=== PATIENT | female | born 1955 | race Caucasian/White ===

== ENCOUNTER 2023-11-13 21:07 | Inpatient (IN) | payer OTHER, SELFPAY ==
[2023-11-13] VITALS (23 sets, daily range): BP systolic 90–152; BP diastolic 27–70; BMI 18.0
--- NOTE | 2023-11-13 17:35 | ED.GENMED ---
History of Present Illness
General
Chief Complaint: Chest Pain
Time Seen by Provider: 11/13/23 17:30
History of Present Illness
History of Present Illness:
HPI: The patient was discharged here yesterday with GI bleeding after being here with hemoglobin of 5.9 initially on 11/10/2023. 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 It appears the patient
was offered but declined an EGD. It appears that the Coumadin was held on the . Today, the patient comes in because of a syncopal event associated with chest discomfort. EMS was called and found her to be hypotensive with blood pressures of
70s over 30s. However only after 400 mL of fluid her repeat blood pressures are in the 160s systolic. They also had concern for change in her EKG with some questionable ST elevation. The patient does have some ongoing vague chest discomfort as
well. She states she did have melena last night after taking something for being constipated.
EXAM:
GENERAL: The patient appears in mild distress
HEENT: Moist oral mucosa
CARDIOVASCULAR: No murmurs, tachycardic heart rate with regular rhythm, No chest wall tenderness
PULMONARY: No respiratory distress, breath sounds are clear and equal
ABDOMEN: Soft with no peritoneal signs, no tenderness
NEUROLOGIC: Excellent strength all extremities, no coordination deficits
PSYCHIATRIC: Appropriate mental status, normal insight and judgement
EXTREMITIES: Nontender, no edema, moves all extremities equally
SKIN: Appears somewhat pale
ED COURSE:
5:30 PM: I initially evaluated patient
NUMBER AND COMPLEXITY OF PROBLEMS ADDRESSED AT THE ENCOUNTER
� Chronic conditions affecting care: Recent GI bleed on Coumadin status post PRBCs
� Acute Exacerbation and/or Progression of Chronic Illness: Mechanical aortic valve, recent GI bleed, prior CVA, labile hypertension
� Differential Diagnosis includes: Recurrence of GI bleed, severe anemia, ACS, dysrhythmia, dehydration/hypotension, [place]
AMOUNT AND/OR COMPLEXITY OF DATA TO BE REVIEWED AND ANALYZED
� I performed an independent evaluation of and my interpretation is:
EKG: Sinus 106, there is lateral ST abnormality which may be related to LVH however this appears changed in comparison to 11/10/2023
CT:
X-rays:
Laboratory Studies: Hemoglobin 5.0, INR 5.5, white count 13.7, troponin negative
Other:
� Review of other/old records: I reviewed the recent hospitalization/discharge summary which the patient was seen by GI and cardiology. Patient had refused endoscopy.
� Clinical information was obtained by an independent historian: I spoke to EMS
� Prescriptions/Medications Considered but not given:
� Further testing considered but not performed:
RISK OF COMPLICATIONS AND/OR MORBIDITY OR MORTALITY OF PATIENT MANAGEMENT
� Social determinants of health affecting care: Lives at home
� Discussion with other providers: Cardiology, GI, hospitalist for admission
� Escalation of care including admission/observation vs risk of discharge considered: Patient's hemoglobin is only 5.0. I have emergently ordered 3 units of blood. INR is 5.5 however the patient has mechanical aortic valve
therefore we will just hold Coumadin for now. I discussed with Dr. Rosales as patient did have an abnormal EKG initially. Troponin is negative. I also notified GI. On reassessment at 6:40 PM, the patient's chest discomfort has improved after
administration of morphine. Of note, EMS did give aspirin prior to arrival.
Past History
Past History
ED Past Medical History: Cancer (Hodgkin's lymphoma, breast), CVA, GERD, HTN, Valvular disease and Hypothyroidism
ED Past Surgical History: Cardiac (Mechanical aortic valve replacement), , Orthopedic and Other (Thyroidectomy, splenectomy, mastectomy)
Patient has exhibited threatening behavior?: No
PSI?: No
Social History
Tobacco: Non-smoker
Alcohol: None
Drug: None
Personal:
Living: with family
Employment: Employed
Family History
Family History: Other (Noncontributory)
Phy Exam
Physical Exam
Physical Exam:
See HPI
Scores
Heart Score for Chest Pain Patients
STEMI patient?: Not applicable
Course
Orders/Labs/Results
Orders:
Orders
11/13/23 17:30
Electrocardiogram (*1) Urgent
Reason for Study: Chest Pain
EKG- Treatment ONCE
11/13/23 17:36
Type+Screen Urgent
Complete Blood Count/With Diff Urgent
Comprehensive Metabolic Panel Urgent
Magnesium Urgent
NT-proBNP Urgent
Troponin I Urgent
11/13/23 17:56
* Blood Bank Products Urgent
Blood Bank Products: *Packed RBC Leuko(PRBC's)
Quantity: 3
Transfuse Today: Yes
Reason: Anemia
11/13/23 17:57
Prothrombin Time Urgent
11/13/23 17:58
Morphine Sulfate 2 mg IV NOW STA
Pantoprazole [Protonix IV] 80 mg IV NOW STA
Abnormal Lab Results
11/13/23 11/13/23
17:36 17:57
WBC 13.7 H 10^3/uL
(4.8-10.8)
RBC 1.67 L 10^6/uL
(4.20-5.40)
Hgb 5.0 L* D g/dL
(12.0-16.0)
Hct 15.5 L* %
(37.0-47.0)
MCHC 32.3 L g/dL
(33.0-37.0)
RDW 17.5 H %
(11.5-14.5)
Abs Immat Gran (auto) 0.1 H 10^3/uL
(0-0.05)
Absolute Neuts (auto) 10.3 H 10^3/uL
(1.4-6.5)
Absolute Monos (auto) 1.3 H 10^3/uL
(0.1-0.6)
Immature Gran % 0.7 H %
(0-0.5)
Neutrophils % 75.3 H %
(42.2-75.2)
Lymphocytes % 12.5 L %
(20.5-51.1)
Monocytes % 9.6 H %
(1.7-9.3)
PT 51.0 H Sec
(11.4-14.6)
INR 5.54 H* D
BUN 67 H mg/dl
(7-17)
Glucose 129 H mg/dl
(70-99)
Calcium 8.1 L mg/dl
(8.4-10.2)
Magnesium 2.6 H mg/dl
(1.6-2.3)
Total Protein 4.8 L g/dl
(6.3-8.2)
Albumin 2.7 L g/dl
(3.5-5.0)
Crossmatch IS Only See Detail
11/13/23 17:36
11/13/23 17:36
Vital Signs
Initial and Last Documented VS:
Initial Vital Signs
Temp Pulse Resp BP Pulse Ox
98.2 F 107 20 141/49 100
11/13/23 17:30 11/13/23 17:30 11/13/23 17:30 11/13/23 17:30 11/13/23 17:30
Last Documented Vital Signs
Temp Pulse Resp BP Pulse Ox
98.2 F 100 12 119/44 100
11/13/23 17:30 11/13/23 18:45 11/13/23 18:45 11/13/23 18:31 11/13/23 18:45
*Pulse Oximetry
Patient hypoxic: no
*Critical Care Note
Total Time (30-74mins, 75-104mins- exclusive of procedures): 60 minutes
comment:
The patient arrived normotensive however had significant drop in hemoglobin. I discussed case emergently with both cardiology and GI. Will emergently give blood.
ED Attending Note
-
Portions of this chart may have been created with voice recognition software.� Occasional wrong word or��sound alike� substitutions may have occurred due to the inherent limitations of voice recognition software.
Discharge Plan
Departure
Patient Disposition: Admit
Date of Disposition: 11/13/23
Time of Disposition: 19:05
Presentation/result/management discussed w/ accepting MD/DO: Hospitalist
Discharge Problem:
Severe anemia
Prescriptions:
No Action
levothyroxine 88 MCG tablet
88 mcg PO DAILY AT 0700
Patient Comments:
10/27/2023: MUST BE BRAND NAME SYNTHROID Pt advised to have family/spouse bring in her Synthroid from home.
fulvestrant 250 MG/5 ML syringe
500 mg IM MONTHLY
Hold Instructions: Resume on 11/18/23. till seen by oncology
omeprazole 10 mg Capsule,Delayed Release(Dr/Ec)
10 mg PO DAILY
Patient Comments:
10/27/2023: MUST BE BRAND NAME PRILOSEC OTC
metoprolol succinate 25 mg tablet extended release 24 hr
37.5 mg PO QPM
lisinopril 10 mg tablet
10 mg PO QPM
warfarin 2.5 mg Tablet
2.5 mg PO SUMOTUWETHFR@1800
lorazepam 0.5 mg tablet
0.5 mg PO HSPRN PRN (Reason: ANXIETY/ sleep)
celecoxib 100 mg capsule
100 mg PO BIDPRN PRN (Reason: PAIN)
Hold Instructions: Resume on 11/25/23.
Referrals:
Melanie Haynes MD [Family Provider] -
Interventions
Interventions:
*Risk Screen - Suicide Last Done: 11/13/23 17:30
*General Assessment Last Done: 11/13/23 18:49
*Neglect/Abuse Screening Last Done: 11/13/23 17:30
*ED COVID-19 Vaccine History Last Done: 11/13/23 18:48
ED- Cardiac Assessment Last Done: 11/13/23 18:49
[2023-11-13 17:44] LABS: % Basophils 0.5 % (0-2); % Eosinophils 1.4 % (0-6); % Immature Granulocytes 0.7 % (0-0.5); % Lymphocytes 12.5 % (20.5-51.1); % Monocytes 9.6 % (1.7-9.3); % Neutrophils 75.3 % (42.2-75.2); Absolute Basophils 0.1 10^3/uL (0-0.2); Absolute Eosinophils 0.2 10^3/uL (0-0.7); Absolute Immature Granulocytes 0.1 10^3/uL (0-0.05); Absolute Lymphocytes 1.7 10^3/uL (1.2-3.4); Absolute Monocytes 1.3 10^3/uL (0.1-0.6); Absolute Neutrophils 10.3 10^3/uL (1.4-6.5); Mean Corp Hgb Conc. 32.3 g/dL (33.0-37.0); Mean Corpuscular Hgb 29.9 pg (27.0-31.0); Mean Corpuscular Volume 92.8 fL (81.0-99.0); Mean Platelet Volume 10.4 fL (7.4-10.4); Nucleated Red Blood Cells % 0.3 %; Platelet Count 231 10^3/uL (130-400); Red Blood Cell Count 1.67 10^6/uL (4.20-5.40); Red Cell Dist. Width 17.5 % (11.5-14.5); White Blood Cell Count 13.7 10^3/uL (4.8-10.8)
[2023-11-13 17:53] LABS: Hematocrit 15.5 % (37.0-47.0)
[2023-11-13 17:55] LABS: ALT (SGPT) 13 U/L (0-35); AST (SGOT) 25 U/L (14-36); Albumin 2.7 g/dl (3.5-5.0); Alkaline Phosphatase 61 U/L (38-126); Blood Urea Nitrogen 67 mg/dl (7-17); Calcium 8.1 mg/dl (8.4-10.2); Carbon Dioxide 23 mmol/L (22-30); Chloride 107 mmol/L (98-107); Estimated Creatinine Clearance 36 ml/min; Glucose 129 mg/dl (70-99); Magnesium 2.6 mg/dl (1.6-2.3); Potassium 4.2 mmol/L (3.5-5.1); Sodium 135 mmol/L (135-145); Total Bilirubin 0.4 mg/dl (0.2-1.3); Total Protein 4.8 g/dl (6.3-8.2); eGFR > 60.00
[2023-11-13 18:06] LABS: NT-proBNP 1020 pg/ml; Troponin I < 0.012 ng/ml
[2023-11-13 18:20] LABS: INR 5.54
[2023-11-13] MEDS: MORPHINE SULFATE 2 MG IV (18:29)
[2023-11-13] MEDS: PROTONIX IV 80 MG IV (18:31)
--- NOTE | 2023-11-13 20:03 | HPS.HSE ---
Family Physician
-
Family Physician: Melanie Haynes MD
Chief Complaint
-
Syncope, SOB, Chest Pain
History of Present Illness
Patient is a 68y F with PMH significant for breast cancer on chemotherapy, mechanical AVR on Coumadin and recent hospitalization for GI Bleed who presents to ED complaining of SOB, chest pain and syncope. Patient was admitted 11/10 - 11/11 with GI
bleeding of suspected upper source. Her Coumadin was briefly held and she was transfused for Hgb = 5.9. Her discharge hemoglobin was 9.3 and her INR was 3.33. Patient was evaluated by GI during that hospital stay and EGD was recommended to assess
source of the bleeding. Patient was concerned with any interruption of her anticoagulation (has prior h/o stroke following colonoscopy) and declined the procedure.
After discharge, she noted some constipation. She had no BM until she took 1/2 dose of Mag citrate yesterday afternoon. She had a very large, very black and tarry BM following this.
After the BM, patient developed recurrent chest heaviness and SOB.
This AM she woke to use the bathroom and lost consciousness. EMS was called and patient was brought to the ED for further evaluation and treatment.
EKG done en route and here in the ED shows significant ST changes compared to tracings from only a few days ago.
In the ED at the time of my examination, patient is resting comfortably and has no current chest pain and no dyspnea at rest.
Medical History
Past Medical History
Past Medical History: Reports Other
Additional Past Medical History:
Hodgkin's Lymphoma (1970s) - XRT
Hypothyroidism
Breast Cancer
Hypertension
Aortic Stenosis (secondary to XRT)
CVA - presumed embolic - 2021
Past Surgical History: Reports Other
Additional Past Surgical History:
Mechanical AVR (pediatric valve) - 2006
Splenectomy
Mastectomy
Thyroidectomy
Social History
Tobacco: Non-smoker
Alcohol: None
Drug: None
Family History
Family History: Not pertinent
Allergies / Home Medications
Allergies reflects when Allergies were last updated in [employer]
Home Medications with original date entered in [employer]
Allergy/Medication List:
Allergies
Allergy/AdvReac Type Severity Reaction Status Date / Time
palbociclib [From [facility]] Allergy Tongue Verified 11/13/23 17:37
Swelling
Penicillins Allergy throat Verified 11/13/23 17:37
swelling-
tolertates
amoxicillin
tramadol Allergy throat Verified 11/13/23 17:37
swelling
Home Medications
fulvestrant 250 mg/5 mL intramuscular syringe 500 mg IM MONTHLY Cancer 07/16/21
levothyroxine 88 mcg tablet 88 mcg PO DAILY AT 0700 Thyroid 07/16/21
omeprazole 10 mg capsule,delayed release 20 mg PO DAILY Gastrointestinal issue 08/25/22
metoprolol succinate 25 mg tablet,extended release 24 hr 37.5 mg PO QPM Blood Pressure 10/27/23
lisinopril 10 mg tablet 10 mg PO QPM Blood Pressure 10/28/23
celecoxib 100 mg capsule 100 mg PO BIDPRN PRN nerve PAIN 11/10/23
lorazepam 0.5 mg tablet 0.5 mg PO HSPRN PRN ANXIETY/ sleep 11/10/23
warfarin 2.5 mg tablet 2.5 mg PO QPM 11/10/23
bisacodyl 10 mg rectal suppository (Dulcolax (bisacodyl)) 10 mg ME DAILYPRN PRN constipation 11/13/23
magnesium citrate 150 ml PO BIDPRN PRN constipation 11/13/23
Review of Systems
-
History Source: Patient
A 12 point ROS was completed and negative except as noted: Yes
Constitutional: Reports Fatigue; Denies Fever or Chills
EENT: Denies Sore Throat
Respiratory: Reports Trouble Breathing; Denies Cough
Cardiac: Reports Chest Pain, Diaphoresis and Syncope; Denies Palpitations
Abdomen/GI: Reports Constipated and Black Stools; Denies Abdominal Pain, Nausea or Vomiting
: Denies Dysuria or Frequency
Neurological: Denies Headache
Psych: Denies Depression or Anxiety
Physical Exam
Vital Signs
Vital Signs
Temp Pulse Resp BP Pulse Ox
98.2 F 100 12 119/44 100
11/13/23 17:30 11/13/23 18:45 11/13/23 18:45 11/13/23 18:31 11/13/23 18:45
Physical Exam
General: Other (Thin, frail-appearing 68y F in no acute distress.)
HEENT: Moist mucous membranes and PERRLA
Respiratory: Clear; No Wheezes, Rales or Rhonchi
Cardiac: S1/S2 (Mechanical S2), Regular Rhythm and Murmur (II/ AMMY)
GI: Soft, Non Tender, Non Distended and Normal Bowel Sounds
Musculoskeletal: No Clubbing, No Cyanosis and No Edema
Neuro: AO x 3
Laboratory Results
-
11/13/23 17:36
11/13/23 17:36
Laboratory Results
PT 51.0 Sec (11.4-14.6) H 11/13/23 17:57
INR 5.54 H* D 11/13/23 17:57
Total Bilirubin 0.4 mg/dl (0.2-1.3) 11/13/23 17:36
AST 25 U/L (14-36) 11/13/23 17:36
ALT 13 U/L (0-35) 11/13/23 17:36
Alkaline Phosphatase 61 U/L (38-126) 11/13/23 17:36
Troponin I < 0.012 ng/ml 11/13/23 17:36
Impression/Plan
-
A/P: Patient is a 68y F with PMH significant for mechanical AVR, chronic anticoagulation and breast cancer on fulvestrant who presents to ED complaining of chest pain, SOB and syncope this AM.
Upper GI Bleed
Symptomatic Blood Loss Anemia secondary to the above
- Admit for further evaluation and treatment.
- Continued melena and repeat significant anemia (Hgb 9.3 to 5.0 since discharge).
- PRBCs ordered in the ED.
- Follow H&H for any changes.
- Hold Coumadin - but will not actively reverse for now - unless further / brisk bleeding is appreciated.
- GI evaluation - patient notes that she is amenable to EGD now given recurrent blood loss.
- IV PPI BID for now.
Chest Pain
SOB
Syncope
- Likely secondary to blood loss anemia as noted above.
- EKG on this admission markedly different from prior with ST changes in the inferior / lateral leads.
- Troponin remains undetectable.
- Follow for any changes in troponin, recurrent chest pain, EKG changes, etc.
- Cardiology evaluation.
- Continue metoprolol. Hold other medications, including ASA, given active bleeding.
- Replace PRBCs as noted above and follow for clinical improvement.
Mechanical AVR
Chronic Coumadin Coagulopathy
- Hold Coumadin for now as noted above.
- Initial INR today is 5.54 - increased from 3.33 at discharge.
- Last dose of Coumadin was 11/12 evening - 2.5mg.
- Follow INR daily.
- Begin IV heparin for bridging once INR < 3.
- Restart heparin immediately following EGD if possible.
- Cardiology input re: anticoagulation is appreciated.
Benign Hypertension
- BP stable / low at present - likely secondary to blood / volume losses.
- Hold lisinopril acutely.
- Continue metoprolol with holding parameters.
Hypothyroidism
- Stable. Continue T4 replacement.
Breast Cancer
- Maintained on fulvestrant.
- Receives one monthly. Next dose is due Friday.
- Follow-up with Oncology as an outpatient.
DVT Prophylaxis: SCDs
Code Status: DNR
[2023-11-14] VITALS (17 sets, daily range): BP systolic 86–156; BP diastolic 37–72
[2023-11-14] MEDS: NSS 1000 IV ×3 (00:23→20:37)
[2023-11-14 06:48] LABS: Hematocrit 30.2 % (37.0-47.0)
[2023-11-14 06:53] LABS: Hemoglobin 10.2 g/dL (12.0-16.0)
[2023-11-14 06:54] LABS: INR 4.32
[2023-11-14 07:06] LABS: Blood Urea Nitrogen 56 mg/dl (7-17); Calcium 7.9 mg/dl (8.4-10.2); Carbon Dioxide 22 mmol/L (22-30); Chloride 109 mmol/L (98-107); Estimated Creatinine Clearance 41 ml/min; Glucose 99 mg/dl (70-99); Potassium 4.9 mmol/L (3.5-5.1); Sodium 137 mmol/L (135-145); eGFR > 60.00
[2023-11-14] MEDS: PROTONIX IV 40 MG IV (07:52)
[2023-11-14] MEDS: NSS (PRESERVATIVE FREE) 10 ML IV (07:52)
[2023-11-14] MEDS: SYNTHROID 88 MCG PO (08:46)
--- NOTE | 2023-11-14 09:06 | CON.GI ---
Addendum entered and electronically signed by Antonio Lou MD 11/14/23 19:34:
I saw and examined the patient.
The PA's note was reviewed and I agree with the note.
Comment:
68 year old female with h/o valvular heart disease s/p [facility] [place] mechanical AVR on chronic Coumadin, mitral valve stenosis with severe MR, CVA, Hodgkin's lymphoma with history of radiation, history of breast cancer with mastectomy, hypothyroidism,
hypertension, GERD, gastroparesis, who presented to the emergency room with complaints of shortness of breath, chest pain, and syncope.� Hgb found to be 5. Had similar presentation recently but declined endo eval as she did not want to hold
coumadin. Had melena x 2 about 2 days ago, no further BM since. Doubt active bleeding currently. Will need endo eval, but will have to defer until INR is < 2. Will follow.
Original Note:
Consultation
-
Date/Time Consultation Requested: 11/13/23 @ 21:29
Date/Time Consultation Performed: 11/14/23 @ 09:15
Requesting Provider: Dr. Devine
Performing Provider: STEPHANIE Toledo; Dr. Antonio Lou
Reason for Consultation: UGIB on Coumadin
Medical History
Chief Complaint / HPI
Chief Complaint: Syncope, SOB, Chest Pain
History of Present Illness:
The patient is a 68-year-old female with a past medical history significant for valvular heart disease with history of aortic valve replacement on chronic Coumadin, mitral valve stenosis with severe MR, CVA, Hodgkin's lymphoma with history of
radiation, history of breast cancer with mastectomy, hypothyroidism, hypertension, GERD, gastroparesis, who presented to the emergency room with complaints of shortness of breath, chest pain, and syncope. We are being asked to evaluate for
symptomatic anemia and concern for upper GI bleed. Upon review of prior records patient was seen here [facility] last week discharged on 11/11 presenting with similar complaints. She did have melena at that time with a hemoglobin of 5.9 and
was suspected to have bleeding from possible AVM versus peptic ulcer disease with history of significant valvular disease on chronic Coumadin. She was recommended to undergo an EGD but declined due to having had a stroke 2 years ago when she
underwent EGD/colonoscopy after anticoagulation was held. She was transfused with blood with improvement of her hemoglobin up to 9.2, and she was discharged home. She is also on chronic fulvestrant which was advised to be held as this can lead to
anemia. She has been using Celebrex for joint pain but none leading up to her admission. She reports she had felt well the day after her discharge but notes she was constipated. She did take a magnesium supplement and did have a large bowel
movement but noted it was black and tarry. The following morning around 3 AM she reports going to the bathroom and felt significantly dizzy and lightheaded and did have an episode of syncope. She denies any injury although is unsure. She reports
being helped by her and continued about her day although felt progressively unwell throughout the day. She does yesterday afternoon she did have some chest pain around 4 PM therefore prompting emergency room evaluation. She denies any
bright red blood per rectum, but as noted above admits to a black tarry stool last episode on Friday. She denies any nausea or vomiting. She denies any abdominal pain, fevers, or chills. She reports she was taking Prilosec at home which
usually keeps her reflux under control. Her last dose of Coumadin was taken on Friday night and when she took 2.5 mg. Routine labs in the ER showed a hemoglobin of 5.0. She received 3 units of packed red blood cells with improvement of her
hemoglobin to 10.2. Her Coumadin has been held. Noted with EKG abnormalities and chest pain on admission, since improved. She was placed on twice daily PPI admitted for further evaluation by GI and cardiology.
Past Medical History
Past Medical History: Cancer (hodgkin's lymphoma with radiation to neck and pelvis 1973, breast cancer with mastectomy rx with tamoxifen), CVA, GERD, HTN, Hypothyroidism, Valvular Disease (Aortic valve stenosis with AVR, mitral valve stenosis with
severe MR) and Other (Gastroparesis)
Past Surgical History: Cardiac ([facility] aortic valve replacement), and Other (Splenectomy, thyroidectomy, mastectomy)
Social History
Tobacco: Non-Smoker
Alcohol: None
Drug: None
Personal:
Living: With Family
Family History
Family History: Reviewed & Not Pertinent
Allergies / Home Medications
Allergy/AdvReac Type Severity Reaction Status Date / Time
palbociclib [From [facility]] Allergy Tongue Verified 11/13/23 17:37
Swelling
Penicillins Allergy throat Verified 11/13/23 17:37
swelling-
tolertates
amoxicillin
tramadol Allergy throat Verified 11/13/23 17:37
swelling
Medication Instructions Recorded
fulvestrant 250 mg/5 mL 500 mg IM MONTHLY Cancer 07/16/21
intramuscular syringe
levothyroxine 88 mcg tablet 88 mcg PO DAILY AT 0700 Thyroid 07/16/21
omeprazole 10 mg capsule,delayed 20 mg PO DAILY Gastrointestinal 08/25/22
release issue
metoprolol succinate 25 mg 37.5 mg PO QPM Blood Pressure 10/27/23
tablet,extended release 24 hr
lisinopril 10 mg tablet 10 mg PO QPM Blood Pressure 10/28/23
celecoxib 100 mg capsule 100 mg PO BIDPRN PRN nerve PAIN 11/10/23
lorazepam 0.5 mg tablet 0.5 mg PO HSPRN PRN ANXIETY/ sleep 11/10/23
warfarin 2.5 mg tablet 2.5 mg PO QPM 11/10/23
bisacodyl 10 mg rectal suppository 10 mg NM DAILYPRN PRN constipation 11/13/23
(Dulcolax (bisacodyl))
magnesium citrate 150 ml PO BIDPRN PRN constipation 11/13/23
Review of Systems
-
History Source: Patient
Constitutional: Reports Fatigue
EENT: Reports No Symptoms
Respiratory: Reports Trouble Breathing
Cardiac: Reports Chest Pain
Abdomen/GI: Reports Black Stools
: Reports No Symptoms
Musculoskeletal: Reports No Symptoms
Skin: Reports No Symptoms
Neurological: Reports Dizzy and Weakness
Endocrine: Reports No Symptoms
Vital Signs
Temp Pulse Resp BP Pulse Ox
98.1 F 87 15 123/48 98
11/14/23 01:15 11/14/23 06:00 11/14/23 06:00 11/14/23 06:00 11/14/23 06:00
Physical Exam
Exam
General: Well Developed, No Apparent Distress and Other (pale, non-toxic, thin appearing female)
HEENT: Normocephalic, Anicteric and Atraumatic
Respiratory: Clear
Cardiac: S1/S2, Regular Rhythm and Other (click)
Breast: Deferred by me
GI: Soft, Non Tender, Non Distended and Normal Bowel Sounds
Musculoskeletal: No Edema
Skin: Warm and Dry
Neuro: Awake, Alert and Oriented
Psych: Calm
Results
WBC 13.7 10^3/uL (4.8-10.8) H 11/13/23 17:36
Hgb 10.2 g/dL (12.0-16.0) L D 11/14/23 06:24
Hct 30.2 % (37.0-47.0) L 11/14/23 06:24
MCV 92.8 fL (81.0-99.0) 11/13/23 17:36
Plt Count 231 10^3/uL (130-400) D 11/13/23 17:36
Absolute Neuts (auto) 10.3 10^3/uL (1.4-6.5) H 11/13/23 17:36
PT 42.0 Sec (11.4-14.6) H 11/14/23 06:24
INR 4.32 11/14/23 06:24
Sodium 137 mmol/L (135-145) 11/14/23 06:25
Potassium 4.9 mmol/L (3.5-5.1) 11/14/23 06:25
Chloride 109 mmol/L (98-107) H 11/14/23 06:25
Carbon Dioxide 22 mmol/L (22-30) 11/14/23 06:25
BUN 56 mg/dl (7-17) H 11/14/23 06:25
Creatinine 0.8 mg/dL (0.6-1.0) 11/14/23 06:25
Calcium 7.9 mg/dl (8.4-10.2) L 11/14/23 06:25
Total Bilirubin 0.4 mg/dl (0.2-1.3) 11/13/23 17:36
AST 25 U/L (14-36) 11/13/23 17:36
ALT 13 U/L (0-35) 11/13/23 17:36
Alkaline Phosphatase 61 U/L (38-126) 11/13/23 17:36
Prior GI procedures:
EGD:� last 2 years ago [facility] normal per pt
Colonoscopy:� last 2 years [facility] normal per pt
Assessment / Plan
-
The patient is a 68-year-old female with a past medical history significant for valvular heart disease with history of [facility] aortic valve replacement on chronic Coumadin, mitral valve stenosis with severe MR, CVA, Hodgkin's lymphoma with history
of radiation, history of breast cancer with mastectomy, hypothyroidism, hypertension, GERD, gastroparesis, who presented to the emergency room with complaints of shortness of breath, chest pain, and syncope. We are being asked to evaluate for
symptomatic anemia and concern for upper GI bleed. She had recent admission for melena and anemia with a hemoglobin of 5.9. Suspected upper GI bleed with significant valvular disease and history of use of Celebrex (AVMs versus peptic ulcer
disease). She was also on chronic fulvestrant which can cause chronic anemia. She declined EGD at the time of her last hospitalization due to concerns for stroke being off her Coumadin. She now presents again with recurrent symptomatic anemia.
Hemoglobin 5.0 in the emergency room, status post 3 units of packed red blood cells with hemoglobin up to 10.2. INR on admission was 5.54, now down to 4.32 without reversal as there is no brisk bleeding. Also noted with elevated troponin and EKG
abnormalities, pending cardiology evaluation. Currently chest pain free.
Problem list:
-Recurrent symptomatic macrocytic anemia with melena
-Chronic AC on Coumadin for mechanical AVR
-History of intermittent NSAID use
-breast CA with recurrence on chronic Fulvestrant
-chronic constipation
-gastroparesis
-Dysgeusia
-CVA x 2 with last while off anticoagulation for GI procedure
Other pertinent medical history:
-HTN
-hodgkin's lymphoma with distant hx radiation, splenectomy
-mitral stenosis with severe MR
-hypothyroidism, status post thyroidectomy
-GERD
Recommendation:
-Etiology of anemia likely multifactorial secondary to upper GI blood loss (possible AVM with history of valvular disease versus peptic ulcer disease with history of NSAID use) versus fulvestrant use versus other.
---With melena likely upper GI source.
-Continue to trend H&H and transfuse as needed
-Will need eventual EGD once INR is in appropriate range and cleared from cardiology standpoint with elevated troponins/abnormal EKG.
-Monitor INR daily and will likely need heparin bridging, pending cardiology. Will review timing with Dr. Lou
-Monitor for brisk signs of bleeding, if so would consider more urgent EGD v CTA imaging
-PPI drip
-Clear liquid diet (no red liquids)
-Monitor stools
-Avoid all NSAIDs
-Hold Coumadin for now
-We will follow
-
-
Thank you for consultation and allowing me to participate in the patient's care. Please call the risk prevention engineer GI physician during the after hours with any questions or concerns.
[2023-11-14 09:36] LABS: Hematocrit 29.1 % (37.0-47.0); Hemoglobin 9.8 g/dL (12.0-16.0)
[2023-11-14 10:05] LABS: Troponin I 0.141 ng/ml
--- NOTE | 2023-11-14 12:03 | CON.CAR ---
Addendum entered and electronically signed by Donnell Dalal MD 11/14/23 15:55:
I saw and examined the patient.
The ELECTRIC UTILITY LINEWORKER or PA's note was reviewed and I agree with the note.
Comment: General: Well developed, well nourished in NAD.
Neck: Supple, no JVD, HJR, carotids +2 B/L, no bruits bilaterally.
Heart: Non displaced PMI, RRR, 1/6 basal systolic murmur, metallic S2, No S3, S4, no rubs.
Lungs: Clear to auscultation bilaterally, no wheeze, rhonchi, rubs bilaterally,
normal expiratory phase.
Abdomen: Normal bowel sounds, soft, non-tender, non-distended.
Extremities: No clubbing, cyanosis or edema bilaterally.
Neuro: Grossly nonfocal, awake, alert and oriented x3.
Chanda has a history of right MCA stroke with M2 occlusion in the setting of therapeutic INR in June 2022, mechanical AVR pediatric size in 2006 on chronic warfarin, mitral regurgitation and mitral stenosis, TR with pulm hypertension, CVA in
2005, breast cancer status post radiation, hypertension, hypothyroidism. She was admitted with GI bleed October 2023. She declined GI evaluation at that time. She returns with melanotic stool with worsening chest pain and shortness of breath.
She found have a hemoglobin of 5.0. She feels better after transfusion. INR is elevated at 5.54. Cardiology is consulted for evaluation prior to endoscopy and given elevated troponins. No chest pain or shortness of breath at present
Okay for GI procedure without further testing when INR has improved. Will need to start heparin when INR is less than 2.0. Of note she had marked ST-T wave changes which improved after transfusion. Might consider eventual outpatient stress
testing. Will need to monitor INR closely given prior CVA with subtherapeutic INR.
Original Note:
Consultation
Consultation Request
Date/Time Consultation Requested: 11/13/2023 at 2130
Date/Time Consultation Performed: 11/14/2023 at 1045
Requesting Provider: Dr. Devine
Performing Provider: Dr. Dalal
Reason for Consultation: GIB, elevated troponin, EKG changes
Medical History
-
History of Present Illness:
HPI: Chanda is a 68-year-old female with past medical history of recurrent GI bleeding, CVA, AVR, Hodgkin lymphoma, breast cancer, hypertension, and hypothyroidism who presented to ER with symptomatic anemia and GI bleed. She was recently
admitted at 11/10/2023 to 11/11/2023 with same symptoms and was recommended GI evaluation, however she declined. After returning home, she had ongoing dark, black stool and became progressively symptomatic with this with chest pain and shortness
of breath. She returned to ER 11/13/2023 for reevaluation and was found to have hemoglobin of 5.0. Her INR was elevated at 5.54. Her Coumadin was held and she was given 3 units PRBCs. Hemoglobin improved this AM to 10.2. Initial EKG in the
setting of severe anemia had significant ST changes that have improved following transfusion. She also was noted to have elevated troponin with initial troponin negative, trending upwards to 0.130. Cardiology consulted for evaluation. She reports
she is feeling better this morning after receiving the units of blood. She has already been evaluated by GI and is agreeable to workup/EGD this admission. Chest pain and shortness of breath are resolved.
PMH:
Recent admission 11/10/2023 to 11/11/2023 for GIB
GIB w/ transfusion 08/2022 after starting Ribociclib
Right MCA stroke with M2 occlusion in setting of subtherapeutic INR while off Coumadin 07/15/22
patient bridged with Lovenox prior to colonoscopy 07/10/21, but no Lovenox bridge post-colonoscopy
Mechanical AVR pediatric size 2006
Chronic warfarin OAC
Mitral regurgitation with mitral stenosis
Tricuspid regurgitation with pulmonary hypertension
h/o CVA 2005; recurrent right MCA stroke secondary to M2 occlusion in setting of subtherapeutic INR 06/2022
h/o Hodgkin's lymphoma treated with radiation to left neck and pelvis 1973
h/o breast CA 2018 treated with B/L mastectomy, patient refused chemotherapy and radiation, but eventually agreeable to Tamoxifen
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
Recurrence of breast cancer 2021 - did not tolerate Ibrance or Ribociclib
HTN
Hypothyroidism
Past Medical History
Past Medical History: Other (In HPI)
Past Surgical History: Cardiac ([facility] [place] mechanical aortic valve), and Other (Bilateral mastectomy 2017, thyroidectomy, splenectomy)
Social History
Tobacco: Former Smoker
Alcohol: Occasional
Drug: None
Personal:
Living: With Family
Family History
Family History: CAD and Cancer
Allergies / Home Medications
Allergy/AdvReac Type Severity Reaction Status Date / Time
palbociclib [From Ibrance] Allergy Tongue Verified 11/13/23 17:37
Swelling
Penicillins Allergy throat Verified 11/13/23 17:37
swelling-
tolertates
amoxicillin
tramadol Allergy throat Verified 11/13/23 17:37
swelling
Medication Instructions Recorded Confirmed Type
fulvestrant 250 mg/5 mL 500 mg IM MONTHLY Cancer 07/16/21 11/13/23 History
intramuscular syringe
levothyroxine 88 mcg tablet 88 mcg PO DAILY AT 0700 Thyroid 07/16/21 11/13/23 History
omeprazole 10 mg capsule,delayed 20 mg PO DAILY Gastrointestinal 08/25/22 11/13/23 History
release issue
metoprolol succinate 25 mg 37.5 mg PO QPM Blood Pressure 10/27/23 11/13/23 History
tablet,extended release 24 hr
lisinopril 10 mg tablet 10 mg PO QPM Blood Pressure 10/28/23 11/13/23 History
celecoxib 100 mg capsule 100 mg PO BIDPRN PRN nerve PAIN 11/10/23 11/13/23 History
lorazepam 0.5 mg tablet 0.5 mg PO HSPRN PRN ANXIETY/ sleep 11/10/23 11/13/23 History
warfarin 2.5 mg tablet 2.5 mg PO QPM Blood Clot 11/10/23 11/13/23 History
Prevention/Tx
bisacodyl 10 mg rectal suppository 10 mg [place] DAILYPRN PRN constipation 11/13/23 11/13/23 History
(Dulcolax (bisacodyl))
magnesium citrate 150 ml PO BIDPRN PRN constipation 11/13/23 11/13/23 History
Review of Systems
-
History Source: Patient
All other systems: Negative unless noted
Physical Exam
Vital Signs
Temp Pulse Resp BP Pulse Ox
98.1 F 87 15 123/48 98
11/14/23 01:15 11/14/23 06:00 11/14/23 06:00 11/14/23 06:00 11/14/23 06:00
Lab Results
11/14/23 06:25
Troponin I 0.141 ng/ml H* 11/14/23 09:25
Wsv-H-Pdaizmfwbjo Pept 1020 pg/ml 11/13/23 17:36
Physical Exam
General: No Apparent Distress and Other (Thin)
HEENT: Normocephalic, Anicteric and Moist Mucous Membranes
Respiratory: Clear and Non Labored Respirations
Cardiac: S1/S2, Regular Rhythm, Murmur and Other (+ Click of mechanical valve)
Musculoskeletal: No Clubbing, No Cyanosis and No Edema
Skin: Warm and Dry
Neuro: AO x 3 and Nonfocal/Grossly Intact
Psych: Calm
Impression / Plan
-
PCP: Dr. Haynes
Cardiology: Dr. Michelle Justice
Oncology: Dr. Khan at [facility]
Impression:
Presented with chest pain, shortness of breath
Melena
Acute GIB with severe symptomatic anemia
Supratherapeutic INR
Elevated troponin
Recent admission 11/10/2023 to 11/11/2023 for GIB
GIB w/ transfusion 08/2022 after starting Ribociclib
Right MCA stroke with M2 occlusion in setting of subtherapeutic INR while off Coumadin 07/15/22
patient bridged with Lovenox prior to colonoscopy 07/10/21, but no Lovenox bridge post-colonoscopy
Mechanical AVR pediatric size 2006
Chronic warfarin OAC
Mitral regurgitation with mitral stenosis
Tricuspid regurgitation with pulmonary hypertension
h/o CVA 2005; recurrent right MCA stroke secondary to M2 occlusion in setting of subtherapeutic INR 06/2022
h/o Hodgkin's lymphoma treated with radiation to left neck and pelvis 1973
h/o breast CA 2018 treated with B/L mastectomy, patient refused chemotherapy and radiation, but eventually agreeable to Tamoxifen
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
Recurrence of breast cancer 2021 - did not tolerate Ibrance or Ribociclib
HTN
Hypothyroidism
Lexiscan nuclear stress test 11/28/2021:�Positive EKG.� Perfusion imaging with small inferoseptal suggestive of significant bowel artifact vs ischemia
Echo 08/31/19: EF 55-60%, grade II diastolic dysfunction, moderate MR, mechanical aortic valve mean gradient 8 mmHg
Echo 07/16/21:�EF 70-75%, mild to mod MS with mean gradient 10 mmHg, [facility] [place] AVR mean gradient 13, PAP 43 mmHg
Echo 08/26/2022: Hyperdynamic LV.� EF 70 to 75%.� Mild to moderate MS peak/mean gradient 20/7 mmHg.� Moderate to severe MR.� Well-seated mechanical AVR with peak/mean gradient 11/6 mmHg without regurgitation.� Moderate to severe TR.� Moderate
pulmonary hypertension with PAP 50 to 55 mmHg.
Echo 02/10/2023: EF 60 to 65%.� Moderate mitral stenosis mean gradient 11 with severe MR.� Well-seated mechanical AVR with peak/mean gradient 15/8 mmHg, mild to moderate TR, mild pulmonary hypertension with PAP 45 to 48 mmHg.
Plan:
-Presented with severe symptomatic anemia due to GI bleed. Hemoglobin 5.0 with INR 5.5 on arrival.
-Warfarin held. Received 3 units PRBCs overnight. Hemoglobin improved to 10.2 in AM 11/14, on repeat down to 9.8, continue to follow.
-Continue to hold Coumadin. GI evaluating and plan is for eventual EGD once INR is improved. Patient is now agreeable.
-Given history of CVA in the setting of subtherapeutic INR with holding Coumadin in the past, agree with heparin bridge. INR 4.32 11/14/2023
-Chest pain noted with ST changes on EKG in the setting of severe anemia. Following transfusion and improvement in hemoglobin, her symptoms have resolved and EKG changes have improved.
-Elevated troponin noted, trending up to 0.141. Continue to trend to peak. Suspect non-ID troponin elevation in the setting of acute symptomatic anemia.
-Continue Toprol. Blood pressure and heart rate stable. Lisinopril on hold given hypotension initially, may consider resuming as BP allows.
-Fulvestrant remains on hold per GI recommendations.
-Continue IV PPI.
HPI: Chanda is a 68-year-old female with past medical history of recurrent GI bleeding, CVA, AVR, Hodgkin lymphoma, breast cancer, hypertension, and hypothyroidism who presented to ER with symptomatic anemia and GI bleed. She was recently
admitted at 11/10/2023 to 11/11/2023 with same symptoms and was recommended GI evaluation, however she declined. After returning home, she had ongoing dark, black stool and became progressively symptomatic with this with chest pain and shortness
of breath. She returned to ER 11/13/2023 for reevaluation and was found to have hemoglobin of 5.0. Her INR was elevated at 5.54. Her Coumadin was held and she was given 3 units PRBCs. Hemoglobin improved this AM to 10.2. Initial EKG in the
setting of severe anemia had significant ST changes that have improved following transfusion. She also was noted to have elevated troponin with initial troponin negative, trending upwards to 0.130. Cardiology consulted for evaluation. She reports
she is feeling better this morning after receiving the units of blood. She has already been evaluated by GI and is agreeable to workup/EGD this admission. Chest pain and shortness of breath are resolved.
Data Reviewed
-
EKG: Tracing Personally Visualized and interpreted
Labs: Labs Reviewed by me
Old Records: Reviewed
[2023-11-14] MEDS: PROTONIX 250 IV (12:53)
--- NOTE | 2023-11-14 15:10 | W.PN.HOSP.TC ---
Today's Communication/Plan
-
Follow HH and INR
Await EGD/COLO
Assessment / Plan
Assessment / Plan
A/P:� Patient is a 68y F with PMH significant for mechanical AVR, chronic anticoagulation and breast cancer on fulvestrant who presents to ED complaining of chest pain, SOB and syncope this AM.
Upper GI Bleed
Symptomatic Blood Loss Anemia secondary to the above
�- Continued melena and repeat significant anemia (Hgb 9.3 to 5.0 since discharge).
�- PRBCs ordered in the ED. improved H&H posttransfusion
�- Follow H&H for any changes.
�- Hold Coumadin - but will not actively reverse for now - unless further / brisk bleeding is appreciated.
�- GI input appreciated
�- IV PPI BID for now.
Chest Pain
SOB
Syncope
�- Likely secondary to blood loss anemia as noted above.
�- EKG on this admission markedly different from prior with ST changes in the inferior / lateral leads.
�- Troponin remains indeterminate range suspect secondary to non-MT troponin elevation
�- Follow for any changes in troponin, recurrent chest pain, EKG changes, etc.
�- Cardiology evaluation noted and appreciated
�- Continue metoprolol.� Hold other medications, including ASA, given active bleeding.
�- Replace PRBCs as noted above and follow for clinical improvement.
Mechanical AVR
Chronic Coumadin Coagulopathy
�- Hold Coumadin for now as noted above.
�- Initial INR today is 5.54 - increased from 3.33 at discharge.
�- Last dose of Coumadin was 11/12 evening - 2.5mg.
�- Follow INR daily.
�- Begin IV heparin for bridging once INR < 2.5 or less.
�- Restart heparin immediately following EGD if possible.
�- Cardiology input re: anticoagulation is appreciated.
Benign Hypertension
�- BP stable / low at present - likely secondary to blood / volume losses.
�- Hold lisinopril acutely.
�- Continue metoprolol with holding parameters.
Hypothyroidism
�- Stable.� Continue T4 replacement.
Breast Cancer
�- Maintained on fulvestrant.
�- Receives one monthly.� Next dose is due Friday.
�- Follow-up with Oncology as an outpatient.
DVT Prophylaxis:� SCDs
Code Status:� DNR
Anticipated Discharge: > 48 hours
Subjective/Interval History
-
Date of Service: November 14, 2023
Feels okay. No further dizziness.
No shortness of breath or chest pain.
Now agreeable for endoscopy eval.
Objective Data
-
Labs:
Laboratory Results
11/14/23 11/14/23 11/14/23
06:24 06:25 09:25
Hgb 10.2 L D 9.8 L
Hct 30.2 L 29.1 L
PT 42.0 H
INR 4.32
Sodium 137
Potassium 4.9
Chloride 109 H
Carbon Dioxide 22
BUN 56 H
Creatinine 0.8
Glucose 99
Calcium 7.9 L
Vital Signs:
Vital Signs
Temp Pulse Resp BP Pulse Ox
98.1 F 92 17 133/47 100
11/14/23 01:15 11/14/23 12:04 11/14/23 12:04 11/14/23 12:04 11/14/23 07:54
I&O
11/13/23 11/14/23 11/15/23
06:59 06:59 06:59
Intake Total 750 / 750
Balance 750 / 750
Review of Systems
-
Constitutional: Denies Fever
Cardiac: Denies Chest Pain
Abdomen/GI: Denies Abdominal Pain, Nausea or Vomiting
Physical Exam
-
General: No Apparent Distress
HEENT: Moist Mucous Membranes
Respiratory: Clear to Auscultation
Cardiac: Regular Rhythm and S1/S2
GI: Soft
Neuro: AO x 3
Data Reviewed
-
Labs: Labs Reviewed by me
[2023-11-14 16:00] LABS: Hematocrit 26.3 % (37.0-47.0); Hemoglobin 8.9 g/dL (12.0-16.0)
[2023-11-14 16:26] LABS: Troponin I 0.127 ng/ml
--- NOTE | 2023-11-14 19:00 | PTCARENOTE ---
1814 Pt arrived from ER via w/c. Pt alert and oriented. As I attempted to explain to pt new room and review bedside nurse call light, pt became very anxious and upset with noise coming from room mate and T.V. Assisted pt in bed and explain there is
an order to place a portable heart monitor on.
Pt allowed to place heart monitor but then stated ' I need time to settle in, leave me alone for now'. Pt refused vitals, pt at bedside.
Pt denies discomfort, on heart monitor current rhythm normal sinus (sinus tachycardia) heart 90's to low 100's, continue to monitor pt.
1844 Report given to fabrication inspector nurse.
[2023-11-14] MEDS: TOPROL XL 37.5 MG PO (20:33)
[2023-11-14] MEDS: ATIVAN 0.5 MG PO (22:05)
[2023-11-15 03:20] VITALS: BP 118/67
[2023-11-15] MEDS: NSS 1000 IV (03:39)
[2023-11-15] MEDS: ATIVAN 0.5 MG PO ×2 (03:39→23:35)
--- NOTE | 2023-11-15 03:43 | PTCARENOTE ---
Pt very anxious and very upset that roommate will not turn their TV. Pt taken on a walk to help defuse the situation. Pt states that she would like to leave, this nurse and charge nurse explain to the pt that, that would be unsafe d/t the pts quick
drop in hgb and that if the pt were to leave and faint again d/t low hgb she would just end up in the same situation. Charge nurse offered to move pt as soon as a room opens up as there are currently no beds available. Pt called to help her
calm down. Pt requested another dose of her PRN ativan. This nurse promptly asked the EVENT MARKETING SPECIALIST for a 1x dose to help the pt sleep. Pt walked back to bed where medication was promptly given. Pt was also given an eye mask to help with the light from
roommates TV. Will continue to monitor.
[2023-11-15] MEDS: SYNTHROID 88 MCG PO (05:51)
[2023-11-15 06:40] LABS: Hematocrit 26.3 % (37.0-47.0); Hemoglobin 8.8 g/dL (12.0-16.0); Mean Corp Hgb Conc. 33.5 g/dL (33.0-37.0); Mean Corpuscular Hgb 29.6 pg (27.0-31.0); Mean Corpuscular Volume 88.6 fL (81.0-99.0); Mean Platelet Volume 10.2 fL (7.4-10.4); Platelet Count 186 10^3/uL (130-400); Red Blood Cell Count 2.97 10^6/uL (4.20-5.40); Red Cell Dist. Width 16.1 % (11.5-14.5); White Blood Cell Count 15.1 10^3/uL (4.8-10.8)
[2023-11-15 06:50] LABS: INR 4.92; PT 46.5 Sec (11.4-14.6)
[2023-11-15 07:00] VITALS: BP 152/64
--- NOTE | 2023-11-15 08:01 | PTCARENOTE ---
PT AOX3, NOT PLEASANT THIS AM, STATS THAT SHE HAS NOT SLEPT. PT DENIES PAIN, SOB, N/V. INSTRUCTED PT TO USE CALL PITT FOR NEEDS. NPO FOR POSSIBLE PROCEDURE. WILL CONTINUE TO MONITOR
--- NOTE | 2023-11-15 10:47 | VATNOTE ---
Spoke w/ pt's primary RN. New Iv attempted, but unable to thread the catheter. Labs obtained and sent. Pt shaking legs frantically in bed and crying. Attempted to calm pt down but she will not say anything, saying no one is giving her answers.
Relayed information to primary RN.
[2023-11-15 11:00] VITALS: BP 160/70
--- NOTE | 2023-11-15 13:03 | W.PN.GI.CBS2 ---
Today's Communication / Plan
-
change PPI infusion to 40 mg IV BID
Assessment / Plan
-
The patient is a 68-year-old female with a past medical history significant for valvular heart disease with history of [facility] [place] aortic valve replacement on chronic Coumadin, mitral valve stenosis with severe MR, CVA, Hodgkin's lymphoma with history
of radiation, history of breast cancer with mastectomy, hypothyroidism, hypertension, GERD, gastroparesis, who presented to the emergency room with complaints of shortness of breath, chest pain, and syncope. We are being asked to evaluate for
symptomatic anemia and concern for upper GI bleed. She had recent admission for melena and anemia with a hemoglobin of 5.9. Suspected upper GI bleed with significant valvular disease and history of use of Celebrex (AVMs versus peptic ulcer
disease). She was also on chronic fulvestrant which can cause chronic anemia. She declined EGD at the time of her last hospitalization due to concerns for stroke being off her Coumadin. She now presents again with recurrent symptomatic anemia.
Hemoglobin 5.0 in the emergency room, status post 3 units of packed red blood cells with hemoglobin up to 10.2. INR on admission was 5.54, now down to 4.32 without reversal as there is no brisk bleeding. Also noted with elevated troponin and EKG
abnormalities, pending cardiology evaluation. Currently chest pain free.
PT's INR is 4.9 today. Denies further melena. Will hold EGD until INR < 2 (hep gtt bridging). Hgb remains stable. Will change PPI infusion to 40 mg IV BID. Will follow.
Total Time Spent with Patient (in minutes): 35
Subjective
Subjective
Date of Service: November 15, 2023
No events. INR 4.9 today.
Objective
Data Reviewed
Laboratory Data:
Laboratory Results
11/15/23 06:24
Laboratory Results
PT 46.5 Sec (11.4-14.6) H 11/15/23 06:07
INR 4.92 11/15/23 06:07
Magnesium 2.6 mg/dl (1.6-2.3) H 11/13/23 17:36
Total Bilirubin 0.4 mg/dl (0.2-1.3) 11/13/23 17:36
AST 25 U/L (14-36) 11/13/23 17:36
ALT 13 U/L (0-35) 11/13/23 17:36
Alkaline Phosphatase 61 U/L (38-126) 11/13/23 17:36
Vital Signs and I&O:
Vital Signs
Temp Pulse Resp BP Pulse Ox
98.4 F 111 18 160/70 100
11/15/23 11:00 11/15/23 11:00 11/15/23 11:00 11/15/23 11:00 11/15/23 11:00
I&O
11/14/23 11/15/23 11/16/23
06:59 06:59 06:59
Intake Total 750 / 750 480 / 480
Balance 750 / 750 480 / 480
--- NOTE | 2023-11-15 13:50 | CM ---
Patient seen bedside with , initial assessment completed by , Silvino. Per Silvino, patient resides with him in a multiple story home, patient does not use DME, denies VN/SNF history. Per Silvino, patients PCP Dr. Haynes, pharmacy [facility].
CM received consult for home O2, patient will require respiratory assessment. CM will continue to follow for discharge planning needs.
Plan; home no needs vs VN, watch for home O2 assessment/needs.
--- NOTE | 2023-11-15 14:03 | CON.PUL ---
Consultation
Consultation Request
Date/Time Consultation Requested: 11/14/2023 - 1446
Date/Time Consultation Performed: 11/15/2023 - 1207
Requesting Provider: Dr. Burnham
Performing Provider: Dr. Payton
Reason for Consultation: Cough
Medical History
-
Chief Complaint: SOB/chest pain
History of Present Illness:
68-year-old female with a past med history of Hodgkin's lymphoma, breast cancer, aortic stenosis, mechanical AVR and hypertension with recent hospitalization for GI bleed who presents with shortness of breath, chest pain and syncope. She woke up
this morning and lost consciousness. 911 called, and BIBEMS. EKG done and reviewed showed concerning changes. EKG done here shows inferolateral ST depressions with T wave inversions (new compared to EKG from 11/10/2023). She was found to be
anemic with a Hb of 5. Initial troponin normal but then repeat was elevated to 0.13. Patient was given 3 units of blood transfusions between 11/13 in the evening until the little after midnight on 11/14. Repeat Hb on the morning of 11/14 was 10.2.
Patient has melena and there was concern for an upper GI bleed. GI consulted. Patient has a cough, and pulmonary now consulted.
When I saw the pt she was in NAD. She has a chronic cough and says its from PND. Her cough is currently at her baseline and not bothersome. She denies SOB. She had a cold in September 2023 where her cough worsened x 2 weeks but then dissipated.
She currently denies CP, ALLEN, abd pain, N/f/c. She is on room air and is breathing comfortably.
PMHx: Hodgkin lymphoma s/p XRT, hypothyroidism, breast cancer, hypertension, aortic stenosis, history of CVA, history of mechanical aortic valve replacement (2006)
PSHx: Splenectomy, , mastectomy, thyroidectomy
Past Medical History
Past Medical History: Other (Above as per HPI)
Past Surgical History: Other (Above as per HPI)
Social History
Tobacco: Non-smoker
Alcohol: None
Drug: None
Family History
Family History: Reviewed & Not Pertinent
Allergies / Home Medications
Allergies
Allergy/AdvReac Type Severity Reaction Status Date / Time
palbociclib [From [facility]] Allergy Tongue Verified 11/13/23 17:37
Swelling
Penicillins Allergy throat Verified 11/13/23 17:37
swelling-
tolertates
amoxicillin
tramadol Allergy throat Verified 11/13/23 17:37
swelling
Home Medications
Medication Instructions Recorded Confirmed Last Taken Type
fulvestrant 250 mg/5 mL 500 mg IM MONTHLY Cancer 07/16/21 11/14/23 10/21/23 History
intramuscular syringe
levothyroxine 88 mcg tablet 88 mcg PO DAILY AT 0700 Thyroid 07/16/21 11/14/23 11/13/23 History
omeprazole 10 mg capsule,delayed 20 mg PO DAILY Gastrointestinal 08/25/22 11/14/23 11/12/23 History
release issue
metoprolol succinate 25 mg 37.5 mg PO QPM Blood Pressure 10/27/23 11/14/23 11/12/23 History
tablet,extended release 24 hr
lisinopril 10 mg tablet 10 mg PO QPM Blood Pressure 10/28/23 11/14/23 11/12/23 History
celecoxib 100 mg capsule 100 mg PO BIDPRN PRN nerve PAIN 11/10/23 11/14/23 1 Month Ago History
~10/10/23
lorazepam 0.5 mg tablet 0.5 mg PO HSPRN PRN ANXIETY/ sleep 11/10/23 11/14/23 1 Month Ago History
~10/10/23
warfarin 2.5 mg tablet 2.5 mg PO QPM Blood Clot 11/10/23 11/14/23 11/12/23 History
Prevention/Tx
bisacodyl 10 mg rectal suppository 10 mg MS DAILYPRN PRN constipation 11/13/23 11/14/23 Unknown History
(Dulcolax (bisacodyl))
magnesium citrate 150 ml PO BIDPRN PRN constipation 11/13/23 11/14/23 11/12/23 History
Review of Systems
-
History Source: Patient
All other systems: Negative unless noted
Vitals / Labs / Diagnostic Testing
Vital Signs
Temp Pulse Resp BP Pulse Ox
98.4 F 111 18 160/70 100
11/15/23 11:00 11/15/23 11:00 11/15/23 11:00 11/15/23 11:00 11/15/23 11:00
Lab Data
11/15/23 06:24
Laboratory Results
11/15/23
06:07
PT 46.5 H
INR 4.92
Diagnostic Testing:
Physical Exam
-
HEENT: Normocephalic and Anicteric
Cardiovascular: S1/S2, Peripheral Edema (neg) and Other (Mechanical click on S2)
Respiratory: Clear, Wheeze (n), Rales (n), Rhonchi (n) and Non-Labored Respirations
GI: Soft, Non Distended and Non Tender
Neurology: AO x 3 and Tremors (n)
Skin: Warm and Dry
General: Comfortable
Assessment
-
Assessment: 68-year-old female with a past med history of Hodgkin's lymphoma, breast cancer, aortic stenosis, mechanical AVR and hypertension with recent hospitalization for GI bleed who presents with shortness of breath, chest pain and syncope.
She woke up on morning of admission and lost consciousness. 911 called, and BIBEMS. EKG done and reviewed showed concerning changes. EKG done here shows inferolateral ST depressions with T wave inversions (new compared to EKG from 11/10/2023).
She was found to be anemic with a Hb of 5. Initial troponin normal but then repeat was elevated to 0.13. Patient was given 3 units of blood transfusions between 11/13 in the evening until the little after midnight on 11/14. Repeat Hb on the morning
of 11/14 was 10.2. Patient has melena and there was concern for an upper GI bleed. GI consulted. Patient has a cough, and pulmonary now consulted.
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
Impression:
#Acute gastrointestinal hemorrhage due to suspected UGIB
#Chronic Cough due to post nasal drip - currently at her baseline
#Acute blood loss anemia due to UGIB
#Hx of mechanical AVR on chronic anticoagulation (VKA)
Plan:
- Maintain SpO2 >90-94% with supplemental O2 as needed
- Maintain MAP >65
- Replete K>4, Mg>2, PO4>3
- Maintain euglycemia with goal BG 140�180
- GI bleed management per primary team GI --> endoscopy pending.
- Large bore IV x2, PPI, serial Hb and transfuse to keep Hb>7/gdL
- Maintain active type and screen
- DVT prophylaxis - SCDs
Pulmonary service will sign off. Patient breathing well and cough is at baseline. Please reconsult if respiratory issues develop. Thank you.
(Patient was seen and evaluated on 11/15/2023).
--- NOTE | 2023-11-15 14:41 | W.PN.CARDCBS ---
Today's Communication / Plan
-
INR remains high
Start IV heparin when INR is less than 2.5
Resume lisinopril with hypertension
Okay for GI testing without further workup by cardiology
Impression / Plan
-
PCP: Dr. Haynes
Cardiology: Dr. Michelle Justice
Oncology: Dr. Khan at [facility]/Onc
Impression:
Presented with chest pain, shortness of breath
Melena
Acute GIB with severe symptomatic anemia
Supratherapeutic INR
Non-ID troponin elevation, troponin 0.141
Recent admission 11/10/2023 to 11/11/2023 for GIB
GIB w/ transfusion 08/2022 after starting Ribociclib
Right MCA stroke with M2 occlusion in setting of subtherapeutic INR while off Coumadin 07/15/22
patient bridged with Lovenox prior to colonoscopy 07/10/21, but no Lovenox bridge post-colonoscopy
Mechanical AVR pediatric size 2006
Chronic warfarin OAC
Mitral regurgitation with mitral stenosis
Tricuspid regurgitation with pulmonary hypertension
h/o CVA 2005; recurrent right MCA stroke secondary to M2 occlusion in setting of subtherapeutic INR 06/2022
h/o Hodgkin's lymphoma treated with radiation to left neck and pelvis 1973
h/o breast CA 2018 treated with B/L mastectomy, patient refused chemotherapy and radiation, but eventually agreeable to Tamoxifen
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
Recurrence of breast cancer 2021 - did not tolerate Ibrance or Ribociclib
HTN
Hypothyroidism
Lexiscan nuclear stress test 11/28/2021:�Positive EKG.� Perfusion imaging with small inferoseptal suggestive of significant bowel artifact vs ischemia
Echo 08/31/19: EF 55-60%, grade II diastolic dysfunction, moderate MR, mechanical aortic valve mean gradient 8 mmHg
Echo 07/16/21:�EF 70-75%, mild to mod MS with mean gradient 10 mmHg, [place] AVR mean gradient 13, PAP 43 mmHg
Echo 08/26/2022: Hyperdynamic LV.� EF 70 to 75%.� Mild to moderate MS peak/mean gradient 20/7 mmHg.� Moderate to severe MR.� Well-seated mechanical AVR with peak/mean gradient 11/6 mmHg without regurgitation.� Moderate to severe TR.� Moderate
pulmonary hypertension with PAP 50 to 55 mmHg.
Echo 02/10/2023: EF 60 to 65%.� Moderate mitral stenosis mean gradient 11 with severe MR.� Well-seated mechanical AVR with peak/mean gradient 15/8 mmHg, mild to moderate TR, mild pulmonary hypertension with PAP 45 to 48 mmHg.
Plan:
Coumadin remains on hold
INR 4.9 on 11/15
Start IV heparin when INR is less than 2.5 which is especially important with prior CVA with subtherapeutic
Chest pain noted with ST changes on EKG in the setting of severe anemia. Following transfusion and improvement in hemoglobin, her symptoms have resolved and EKG changes have improved.
Consider outpatient stress testing
Continue Toprol. Blood pressure and heart rate stable. Resume lisinopril with hypertension
Fulvestrant remains on hold per GI recommendations.
Continue IV PPI.
Okay for GI testing without further work up
Discussed with and nursing
HPI: Chanda is a 68-year-old female with past medical history of recurrent GI bleeding, CVA, AVR, Hodgkin lymphoma, breast cancer, hypertension, and hypothyroidism who presented to ER with symptomatic anemia and GI bleed. She was recently
admitted at 11/10/2023 to 11/11/2023 with same symptoms and was recommended GI evaluation, however she declined. After returning home, she had ongoing dark, black stool and became progressively symptomatic with this with chest pain and shortness
of breath. She returned to ER 11/13/2023 for reevaluation and was found to have hemoglobin of 5.0. Her INR was elevated at 5.54. Her Coumadin was held and she was given 3 units PRBCs. Hemoglobin improved this AM to 10.2. Initial EKG in the
setting of severe anemia had significant ST changes that have improved following transfusion. She also was noted to have elevated troponin with initial troponin negative, trending upwards to 0.130. Cardiology consulted for evaluation. She reports
she is feeling better this morning after receiving the units of blood. She has already been evaluated by GI and is agreeable to workup/EGD this admission. Chest pain and shortness of breath are resolved.
Progress Note - Care Transitions Nurse
Subjective
Date of Service: November 15, 2023
No complaints
Objective
Labs:
11/15/23 06:24
Labs
Hgb 8.8 g/dL (12.0-16.0) L 11/15/23 06:24
Hct 26.3 % (37.0-47.0) L 11/15/23 06:24
Plt Count 186 10^3/uL (130-400) 11/15/23 06:24
PT 46.5 Sec (11.4-14.6) H 11/15/23 06:07
INR 4.92 11/15/23 06:07
Sodium Cancelled 11/15/23 10:48
Potassium Cancelled 11/15/23 10:48
BUN Cancelled 11/15/23 10:48
Creatinine Cancelled 11/15/23 10:48
Glucose Cancelled 11/15/23 10:48
Troponins
11/13/23 11/13/23 11/14/23
17:36 21:29 06:24
Troponin I < 0.012 Cancelled 0.130 H*
11/14/23 11/14/23
09:25 15:31
Troponin I 0.141 H* 0.127 H*
Vital Signs and I&O:
Vital Signs
Temp Pulse Resp BP Pulse Ox
98.4 F 111 18 160/70 100
11/15/23 11:00 11/15/23 11:00 11/15/23 11:00 11/15/23 11:00 11/15/23 11:00
Vital Signs
Temp Pulse Resp BP Pulse Ox
98.4 F 111 18 160/70 100
11/15/23 11:00 11/15/23 11:00 11/15/23 11:00 11/15/23 11:00 11/15/23 11:00
Intake & Output
11/13/23 11/14/23 11/15/23 11/16/23
06:59 06:59 06:59 06:59
Intake Total 750 / 750 480 / 480
Balance 750 / 750 480 / 480
Physical Exam
Physical Exam
General: Well developed, well nourished in NAD.
Neck: Supple, no JVD, HJR, carotids +2 B/L, no bruits bilaterally.
Heart: Non displaced PMI, RRR, 1/6 basal systolic murmur, metallic S2, no S3, S4, no rubs.
Lungs: Clear to auscultation bilaterally, no wheeze, rhonchi, rubs bilaterally,
normal expiratory phase.
Extremities: No clubbing, cyanosis or edema bilaterally.
Neuro: Grossly nonfocal, awake, alert and oriented x3.
[2023-11-15 15:10] LABS: Blood Urea Nitrogen 44 mg/dl (7-17); Calcium 7.8 mg/dl (8.4-10.2); Carbon Dioxide 16 mmol/L (22-30); Chloride 114 mmol/L (98-107); Estimated Creatinine Clearance 47 ml/min; Glucose 88 mg/dl (70-99); Potassium 4.4 mmol/L (3.5-5.1); Sodium 138 mmol/L (135-145); eGFR > 60.00
[2023-11-15] MEDS: ZESTRIL 10 MG PO (15:11)
[2023-11-15 15:14] VITALS: BP 137/76
[2023-11-15] MEDS: PROTONIX IV (15:23)
--- NOTE | 2023-11-15 16:15 | W.PN.HOSP.TC ---
Today's Communication/Plan
-
Follow H&H and INR
endoscopy eval once INR is down
Assessment / Plan
Assessment / Plan
A/P:� Patient is a 68y F with PMH significant for mechanical AVR, chronic anticoagulation and breast cancer on fulvestrant who presents to ED complaining of chest pain, SOB and syncope this AM.
Upper GI Bleed
Symptomatic acute Blood Loss Anemia secondary to the above
�- Continued melena and repeat significant anemia (Hgb 9.3 to 5.0 since discharge).
�- PRBCs ordered in the ED. improved H&H posttransfusion
�- Follow H&H for any changes.
�- Hold Coumadin - but will not actively reverse for now - unless further / brisk bleeding is appreciated.
�- GI input appreciated
�- IV PPI BID for now.
Chest Pain
SOB
Syncope
�- Likely secondary to blood loss anemia as noted above.
�- EKG on this admission markedly different from prior with ST changes in the inferior / lateral leads.
�- Troponin remains indeterminate range suspect secondary to non-TN troponin elevation
�- Follow for any changes in troponin, recurrent chest pain, EKG changes, etc.
�- Cardiology evaluation noted and appreciated
�- Continue metoprolol.� Hold other medications, including ASA, given active bleeding.
�- Replace PRBCs as noted above and follow for clinical improvement.
Mechanical AVR
Chronic Coumadin Coagulopathy
�- Hold Coumadin for now as noted above.
�- Initial INR today is 5.54 - increased from 3.33 at discharge.
�- Last dose of Coumadin was 11/12 evening - 2.5mg.
�- Follow INR daily-today 4.9
�- Begin IV heparin for bridging once INR < 2.5 or less.
�- Restart heparin immediately following EGD if possible.
�- Cardiology input re: anticoagulation is appreciated.
Benign Hypertension
�- BP stable / low at present - likely secondary to blood / volume losses.
�- cw lisinopril acutely.
�- Continue metoprolol with holding parameters.
Hypothyroidism
�- Stable.� Continue T4 replacement.
Breast Cancer
�- Maintained on fulvestrant.
�- Receives one monthly.� Next dose is due Friday.
�- Follow-up with Oncology as an outpatient.
DVT Prophylaxis:� SCDs
Code Status:� DNR
Anticipated Discharge: > 48 hours
Subjective/Interval History
-
Date of Service: November 15, 2023
No rectal bleeding
Objective Data
-
Labs:
Laboratory Results
11/15/23 11/15/23 11/15/23
06:07 06:08 06:24
WBC 15.1 H
Hgb 8.8 L
Hct 26.3 L
Plt Count 186
PT 46.5 H
INR 4.92
Sodium Cancelled
Potassium Cancelled
Chloride Cancelled
Carbon Dioxide Cancelled
BUN Cancelled
Creatinine Cancelled
Glucose Cancelled
Calcium Cancelled
11/15/23 11/15/23
10:48 14:32
WBC
Hgb
Hct
Plt Count
PT
INR
Sodium Cancelled 138
Potassium Cancelled 4.4
Chloride Cancelled 114 H
Carbon Dioxide Cancelled 16 L
BUN Cancelled 44 H
Creatinine Cancelled 0.7
Glucose Cancelled 88
Calcium Cancelled 7.8 L
Vital Signs:
Vital Signs
Temp Pulse Resp BP Pulse Ox
98.4 F 104 16 137/76 98
11/15/23 15:14 11/15/23 15:14 11/15/23 15:14 11/15/23 15:14 11/15/23 15:14
I&O
11/14/23 11/15/23 11/16/23
06:59 06:59 06:59
Intake Total 750 / 750 480 / 480
Balance 750 / 750 480 / 480
Review of Systems
-
Respiratory: Denies Trouble Breathing
Cardiac: Denies Chest Pain
Abdomen/GI: Denies Abdominal Pain, Nausea or Vomiting
Neuro: Denies Dizzy
Physical Exam
-
General: No Apparent Distress
HEENT: Moist Mucous Membranes
Respiratory: Clear to Auscultation
Cardiac: Regular Rhythm and S1/S2
GI: Soft
Neuro: AO x 3
Data Reviewed
-
Labs: Labs Reviewed by me
--- NOTE | 2023-11-15 17:23 | PTCARENOTE ---
Assumed care of pt from previous nurse. Pt had a mid-line placed today, room moved. Pt mood less anxious and agitated since same. Pt tolerated lunch and did eat. Pt call roth is within reach, pt rings allen. pt is on tele running sinus tachy. Denies
pain. Call roth is within reach, pt rings allen. will cont to monitor.
[2023-11-15] MEDS: TOPROL XL 37.5 MG PO (18:44)
[2023-11-15 19:00] VITALS: BP 127/46
[2023-11-15] MEDS: PROTONIX IV 40 MG IV (19:22)
[2023-11-15 23:28] VITALS: BP 104/34
[2023-11-16] VITALS (9 sets, daily range): BP systolic 117–147; BP diastolic 35–61; BMI 18.0
[2023-11-16 00:28] LABS: Blood Urea Nitrogen 48 mg/dl (7-17); Calcium 7.7 mg/dl (8.4-10.2); Carbon Dioxide 19 mmol/L (22-30); Chloride 113 mmol/L (98-107); Estimated Creatinine Clearance 41 ml/min; Glucose 101 mg/dl (70-99); Potassium 4.3 mmol/L (3.5-5.1); Sodium 137 mmol/L (135-145); eGFR > 60.00
[2023-11-16 00:41] LABS: Troponin I 0.051 ng/ml
--- NOTE | 2023-11-16 00:58 | PTCARENOTE ---
Pt complaining of crushing chest pain. This nurse notified SAND CARRIER who was on the floor at the time. SAND CARRIER ordered a STAT EKG and labs. Both orders promptly completed. Pt. request PRN Ativan for anxiety. Medication promptly given. Will continue to monitor.
[2023-11-16 01:07] LABS: Hematocrit 16.8 % (37.0-47.0); Hemoglobin 5.7 g/dL (12.0-16.0)
--- NOTE | 2023-11-16 04:56 | W.PN.UPDATE ---
Update Note
Progress Note Update
RN reported pt c/o chest pain. EKG done and NSR without sT changes. Actually looks better than previous EKGs.
Will repeat troponin and cbc and bmp. After ativan pt felt better.
0000 HH 5.6 again. Likely cause of chest pain. Also similar presentation at admission. No signs of bleeding. Pt pending EGD once INR normalizes. vitals stable
Will transfuse one unit and repeat HH.
[2023-11-16] MEDS: SYNTHROID 88 MCG PO (05:40)
[2023-11-16] MEDS: ZESTRIL 10 MG PO (08:20)
[2023-11-16] MEDS: PROTONIX IV 40 MG IV ×2 (08:28→22:05)
[2023-11-16] MEDS: NSS (PRESERVATIVE FREE) 10 ML IV ×2 (08:28→22:06)
[2023-11-16] MEDS: FLUSH (NSS) 2 FLUSH IV (08:31)
[2023-11-16 08:48] LABS: Hematocrit 24.5 % (37.0-47.0); Mean Corp Hgb Conc. 33.9 g/dL (33.0-37.0); Mean Corpuscular Hgb 29.9 pg (27.0-31.0); Mean Corpuscular Volume 88.1 fL (81.0-99.0); Mean Platelet Volume 10.1 fL (7.4-10.4); Platelet Count 178 10^3/uL (130-400); Red Blood Cell Count 2.78 10^6/uL (4.20-5.40); Red Cell Dist. Width 15.1 % (11.5-14.5); White Blood Cell Count 10.3 10^3/uL (4.8-10.8)
[2023-11-16 08:55] LABS: INR 3.73; PT 37.5 Sec (11.4-14.6)
[2023-11-16 08:58] LABS: Hemoglobin 8.3 g/dL (12.0-16.0)
[2023-11-16 09:03] LABS: Blood Urea Nitrogen 48 mg/dl (7-17); Calcium 7.9 mg/dl (8.4-10.2); Carbon Dioxide 18 mmol/L (22-30); Chloride 112 mmol/L (98-107); Estimated Creatinine Clearance 41 ml/min; Glucose 95 mg/dl (70-99); Potassium 4.5 mmol/L (3.5-5.1); Sodium 136 mmol/L (135-145); eGFR > 60.00
--- NOTE | 2023-11-16 11:44 | W.PN.GI.CBS2 ---
Today's Communication / Plan
-
.
Assessment / Plan
-
The patient is a 68-year-old female with a past medical history significant for valvular heart disease with history of [facility] aortic valve replacement on chronic Coumadin, mitral valve stenosis with severe MR, CVA, Hodgkin's lymphoma with history
of radiation, history of breast cancer with mastectomy, hypothyroidism, hypertension, GERD, gastroparesis, who presented to the emergency room with complaints of shortness of breath, chest pain, and syncope. We are being asked to evaluate for
symptomatic anemia and concern for upper GI bleed. She had recent admission for melena and anemia with a hemoglobin of 5.9. Suspected upper GI bleed with significant valvular disease and history of use of Celebrex (AVMs versus peptic ulcer
disease). She was also on chronic fulvestrant which can cause chronic anemia. She declined EGD at the time of her last hospitalization due to concerns for stroke being off her Coumadin. She now presents again with recurrent symptomatic anemia.
Hemoglobin 5.0 in the emergency room, status post 3 units of packed red blood cells with hemoglobin up to 10.2. INR on admission was 5.54, now down to 4.32 without reversal as there is no brisk bleeding. Also noted with elevated troponin and EKG
abnormalities, pending cardiology evaluation. Currently chest pain free.
PT's INR is 3.7 today. Reports having melenic stool o/n, first BM since admission. Again, will hold EGD until INR < 2 (hep gtt bridging). Will follow.
Total Time Spent with Patient (in minutes): 35
Subjective
Subjective
Date of Service: November 16, 2023
Hgb down to 5ish, required additional pRBC
Objective
Data Reviewed
Laboratory Data:
Laboratory Results
11/16/23 08:29
11/16/23 08:29
Laboratory Results
PT 37.5 Sec (11.4-14.6) H 11/16/23 08:29
INR 3.73 11/16/23 08:29
Magnesium 2.6 mg/dl (1.6-2.3) H 11/13/23 17:36
Total Bilirubin 0.4 mg/dl (0.2-1.3) 11/13/23 17:36
AST 25 U/L (14-36) 11/13/23 17:36
ALT 13 U/L (0-35) 11/13/23 17:36
Alkaline Phosphatase 61 U/L (38-126) 11/13/23 17:36
Vital Signs and I&O:
Vital Signs
Temp Pulse Resp BP Pulse Ox
98.1 F 93 16 130/61 100
11/16/23 11:00 11/16/23 11:00 11/16/23 11:00 11/16/23 11:00 11/16/23 11:00
I&O
11/15/23 11/16/23 11/17/23
06:59 06:59 06:59
Intake Total 480 / 480 370 / 370
Balance 480 / 480 370 / 370
--- NOTE | 2023-11-16 13:16 | W.PN.HOSP.TC ---
Today's Communication/Plan
-
Follow H&H
Follow INR
Bridging IV heparin once INR less than 2.5
Assessment / Plan
Assessment / Plan
A/P:� Patient is a 68y F with PMH significant for mechanical AVR, chronic anticoagulation and breast cancer on fulvestrant who presents to ED complaining of chest pain, SOB and syncope this AM.
Suspectged Upper GI Bleed
Symptomatic acute Blood Loss Anemia secondary to the above
�-Continuing ongoing blood loss but hemodynamically stable. Drop in H&H this morning noted patient had another unit of blood. So far had 4 units of PRBC transfusion.
�- Follow H&H for any changes.
�- Hold Coumadin - but will not actively reverse for now - unless further / brisk bleeding is appreciated.
�- GI input appreciated
�- IV PPI BID for now.
Chest Pain
SOB
Syncope
�- Likely secondary to blood loss anemia as noted above.
�- Troponin remains indeterminate range suspect secondary to non-CT troponin elevation
�- Cardiology evaluation noted and appreciated
�- Continue metoprolol.� Hold other medications, including ASA, given active bleeding.
�- Replace PRBCs as noted above and follow for clinical improvement.
Mechanical AVR
Chronic Coumadin Coagulopathy
�- Hold Coumadin for now as noted above.
�- Initial INR today is 5.54 - increased from 3.33 at discharge.
�- Last dose of Coumadin was 11/12 evening - 2.5mg.
�- Follow INR daily-today 3.7
�- Begin IV heparin for bridging once INR < 2.5 or less.
�- Restart heparin immediately following EGD if possible.
�- Cardiology input re: anticoagulation is appreciated.
Benign Hypertension
�- BP stable
�- cw lisinopril
�- Continue metoprolol with holding parameters.
Hypothyroidism
�- Stable.� Continue T4 replacement.
Breast Cancer
�- Maintained on fulvestrant.
�- Receives one monthly.� Next dose is due Friday.
�- Follow-up with Oncology as an outpatient.
DVT Prophylaxis:� SCDs
Code Status:� DNR
Anticipated Discharge: > 48 hours
Subjective/Interval History
-
Date of Service: November 16, 2023
Patient had a bowel movements on admission and it was melanotic.
She also felt dizzy and had some nonspecific chest pain this morning. Hemoglobin was noted to be 5.7. Transfused PRBC.
Currently voices no specific complaints-denies chest pain, shortness of breath or nausea vomiting. No dizziness.
Objective Data
-
Labs:
Laboratory Results
11/16/23
08:29
WBC 10.3
Hgb 8.3 L D
Hct 24.5 L
Plt Count 178
PT 37.5 H
INR 3.73
Sodium 136
Potassium 4.5
Chloride 112 H
Carbon Dioxide 18 L
BUN 48 H
Creatinine 0.8
Glucose 95
Calcium 7.9 L
Vital Signs:
Vital Signs
Temp Pulse Resp BP Pulse Ox
98.1 F 93 16 130/61 100
11/16/23 11:00 11/16/23 11:00 11/16/23 11:00 11/16/23 11:00 11/16/23 11:00
I&O
11/15/23 11/16/23 11/17/23
06:59 06:59 06:59
Intake Total 480 / 480 370 / 370
Balance 480 / 480 370 / 370
Review of Systems
-
Constitutional: Denies Fever
EENT: Denies Sore Throat
Respiratory: Denies Cough
Abdomen/GI: Denies Abdominal Pain, Nausea or Vomiting
Physical Exam
-
General: No Apparent Distress
HEENT: Moist Mucous Membranes
Respiratory: Clear to Auscultation
Cardiac: Regular Rhythm and S1/S2
GI: Soft
Neuro: AO x 3
Psych: Calm
Data Reviewed
-
Labs: Labs Reviewed by me
[2023-11-16] MEDS: TOPROL XL 37.5 MG PO (18:53)
[2023-11-16] MEDS: ATIVAN 0.5 MG PO (22:05)
--- NOTE | 2023-11-16 22:10 | PTCARENOTE ---
Pt reports difficulty sleeping, unable to give PRN Ativan PO 0.5mg until 2334. House [employer] Elsy Horan notified, order for 1x PO Ativan 0.5mg provided to pt.
[2023-11-17 03:00] VITALS: BP 150/51
[2023-11-17] MEDS: SYNTHROID 88 MCG PO (05:34)
[2023-11-17 05:37] LABS: Hematocrit 21.7 % (37.0-47.0); Hemoglobin 7.4 g/dL (12.0-16.0); Mean Corp Hgb Conc. 34.1 g/dL (33.0-37.0); Mean Corpuscular Hgb 29.5 pg (27.0-31.0); Mean Corpuscular Volume 86.5 fL (81.0-99.0); Mean Platelet Volume 10.1 fL (7.4-10.4); Platelet Count 224 10^3/uL (130-400); Red Blood Cell Count 2.51 10^6/uL (4.20-5.40); Red Cell Dist. Width 16.1 % (11.5-14.5); White Blood Cell Count 8.8 10^3/uL (4.8-10.8)
[2023-11-17 05:39] LABS: INR 2.91; PT 30.8 Sec (11.4-14.6)
[2023-11-17 05:58] LABS: Blood Urea Nitrogen 37 mg/dl (7-17); Calcium 8.1 mg/dl (8.4-10.2); Carbon Dioxide 21 mmol/L (22-30); Chloride 110 mmol/L (98-107); Estimated Creatinine Clearance 36 ml/min; Glucose 85 mg/dl (70-99); Potassium 3.8 mmol/L (3.5-5.1); Sodium 137 mmol/L (135-145); eGFR > 60.00
[2023-11-17 07:00] VITALS: BP 155/51
[2023-11-17] MEDS: PROTONIX IV 40 MG IV ×2 (08:19→20:02)
[2023-11-17] MEDS: ZESTRIL 10 MG PO (08:20)
[2023-11-17] MEDS: NSS (PRESERVATIVE FREE) 10 ML IV ×2 (08:20→20:01)
--- NOTE | 2023-11-17 10:29 | W.PN.GI.CBS2 ---
Addendum entered and electronically signed by Antonio Lou MD 11/17/23 19:28:
I saw and examined the patient.
The PA's note was reviewed and I agree with the note.
Comment:
INR 2.9 today, agree with starting hep gtt tonight. If INR is < 2 can proceed with endo evaluation. NPO from midnight for possible procedure tomorrow.
Original Note:
Today's Communication / Plan
-
Trend INR. Monitor H/H and transfuse for hgb less than 7. Monitor for further melena, signs of bleeding. EGD once INR less than 2. OK for diet today.
Assessment / Plan
-
The patient is a 68-year-old female with a past medical history significant for valvular heart disease with history of [facility] [place] aortic valve replacement on chronic Coumadin, mitral valve stenosis with severe MR, CVA, Hodgkin's lymphoma with history
of radiation, history of breast cancer with mastectomy, hypothyroidism, hypertension, GERD, gastroparesis, who presented to the emergency room with complaints of shortness of breath, chest pain, and syncope. We are being asked to evaluate for
symptomatic anemia and concern for upper GI bleed. She had recent admission for melena and anemia with a hemoglobin of 5.9. Suspected upper GI bleed with significant valvular disease and history of use of Celebrex (AVMs versus peptic ulcer
disease). She was also on chronic fulvestrant which can cause chronic anemia. She declined EGD at the time of her last hospitalization due to concerns for stroke being off her Coumadin. She presents again with recurrent symptomatic anemia.
Hemoglobin 5.0 in the emergency room, status post 3 units of packed red blood cells with hemoglobin up to 10.2. INR on admission was 5.54 trending down without reversal as there is no brisk bleeding. Also noted with elevated troponin and EKG
abnormalities. Cardiology following.
Problem list:
-Recurrent symptomatic macrocytic anemia with melena
-Chronic AC on Coumadin for mechanical AVR
-History of intermittent NSAID use
-breast CA with recurrence on chronic Fulvestrant
-chronic constipation
-gastroparesis
-Dysgeusia
-CVA x 2 with last while off anticoagulation for GI procedure
Other pertinent medical history:
-HTN
-hodgkin's lymphoma with distant hx radiation, splenectomy
-mitral stenosis with severe MR
-hypothyroidism, status post thyroidectomy
-GERD
Recommendations:
-Etiology of anemia likely multifactorial secondary to upper GI blood loss (possible AVM with history of valvular disease versus peptic ulcer disease with history of NSAID use) versus fulvestrant use versus other.
-EGD once INR is below 2 (will need heparin bridging per cardiology for hx mechanical AVR)
-Follow H/H and transfuse for hgb less than 7
-Trend INR
-OK for regular diet today
-Monitor stools and for signs of active bleeding
-PPI BID
-Continue to hold Coumadin
-Avoid NSAID's
-Will follow
Subjective
Subjective
Date of Service: November 17, 2023
The pt was seen and examined at the bedside. She denies any acute complaints. She had a black BM today with some red blood mixed in (per nurse). She admits to a hemorrhoid that is bothering her right now. Hgb 7.4 this am. Otherwise hemodynamically
stable.
Objective
Data Reviewed
Laboratory Data:
Laboratory Results
11/17/23 04:29
Laboratory Results
PT 30.8 Sec (11.4-14.6) H 11/17/23 04:29
INR 2.91 11/17/23 04:29
Magnesium 2.6 mg/dl (1.6-2.3) H 11/13/23 17:36
Total Bilirubin 0.4 mg/dl (0.2-1.3) 11/13/23 17:36
AST 25 U/L (14-36) 11/13/23 17:36
ALT 13 U/L (0-35) 11/13/23 17:36
Alkaline Phosphatase 61 U/L (38-126) 11/13/23 17:36
Vital Signs and I&O:
Vital Signs
Temp Pulse Resp BP Pulse Ox
97.5 F 93 18 155/51 98
11/17/23 07:00 11/17/23 07:00 11/17/23 07:00 11/17/23 08:20 11/17/23 07:00
I&O
11/16/23 11/17/23 11/18/23
06:59 06:59 06:59
Intake Total 370 / 370 840 / 840
Balance 370 / 370 840 / 840
Physical Exam
Physical Exam
HEENT: Anicteric
Cardiology: S1, S2 (regular rate/rhythm) and Other (click)
Pulmonary: Clear
GI: Soft, Non Distended and Non Tender
Extremities: No Edema
Neuro: Non Focal
--- NOTE | 2023-11-17 10:57 | W.PN.CARDCBS ---
Addendum entered and electronically signed by Maurice Trent DO 11/17/23 16:34:
I saw and examined the patient.
The Dental Nurse's note was reviewed and I agree with the note.
Comment:
Plan:
GI work up in progress
For EGD once INR improved.
Monitor INR
IV Heparin bridge once INR < 2.5 given hx of CVA off anticoagulation Jun 2022
EKG changes in setting of severe anemia. Would consider outpt ischemic eval.
Stable cv status currently
Original Note:
Today's Communication / Plan
-
Follow hemoglobin and transfuse as needed
Follow INR
Bridge w/ IV heparin when INR < 2.5
Eventual EGD
Impression / Plan
-
PCP: Dr. Haynes
Cardiology: Dr. Michelle Justice
Oncology: Dr. Khan at [facility]/Onc
Impression:
Presented with chest pain, shortness of breath
Melena
Acute GIB with severe symptomatic anemia
Supratherapeutic INR
Non-NM troponin elevation, troponin 0.141
Recent admission 11/10/2023 to 11/11/2023 for GIB
GIB w/ transfusion 08/2022 after starting Ribociclib
Right MCA stroke with M2 occlusion in setting of subtherapeutic INR while off Coumadin 07/15/22
patient bridged with Lovenox prior to colonoscopy 07/10/21, but no Lovenox bridge post-colonoscopy
Mechanical AVR pediatric size 2006
Chronic warfarin OAC
Mitral regurgitation with mitral stenosis
Tricuspid regurgitation with pulmonary hypertension
h/o CVA 2005; recurrent right MCA stroke secondary to M2 occlusion in setting of subtherapeutic INR 06/2022
h/o Hodgkin's lymphoma treated with radiation to left neck and pelvis 1973
h/o breast CA 2018 treated with B/L mastectomy, patient refused chemotherapy and radiation, but eventually agreeable to Tamoxifen
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
Recurrence of breast cancer 2021 - did not tolerate Ibrance or Ribociclib
HTN
Hypothyroidism
Lexiscan nuclear stress test 11/28/2021:�Positive EKG.� Perfusion imaging with small inferoseptal suggestive of significant bowel artifact vs ischemia
Echo 08/31/19: EF 55-60%, grade II diastolic dysfunction, moderate MR, mechanical aortic valve mean gradient 8 mmHg
Echo 07/16/21:�EF 70-75%, mild to mod MS with mean gradient 10 mmHg, [place] AVR mean gradient 13, PAP 43 mmHg
Echo 08/26/2022: Hyperdynamic LV.� EF 70 to 75%.� Mild to moderate MS peak/mean gradient 20/7 mmHg.� Moderate to severe MR.� Well-seated mechanical AVR with peak/mean gradient 11/6 mmHg without regurgitation.� Moderate to severe TR.� Moderate
pulmonary hypertension with PAP 50 to 55 mmHg.
Echo 02/10/2023: EF 60 to 65%.� Moderate mitral stenosis mean gradient 11 with severe MR.� Well-seated mechanical AVR with peak/mean gradient 15/8 mmHg, mild to moderate TR, mild pulmonary hypertension with PAP 45 to 48 mmHg.
Plan:
-Presented with severe symptomatic anemia due to GI bleed.� Hemoglobin 5.0 with INR 5.5 on arrival.
-Warfarin remains on hold. She is s/p 4 unites PRBCs this admission.� Hgb 7.4 this AM.
-GI evaluating and plan is for eventual EGD once INR is < 2.
-Given history of CVA in the setting of subtherapeutic INR with holding Coumadin in the past, agree with starting IV heparin once INR <2.5. INR 2.91 11/17.
-Chest pain noted with ST changes on EKG in the setting of severe anemia.�
-Following transfusion and improvement in hemoglobin, her symptoms have resolved and EKG changes have improved. Trop peaked at 0.141. May consider eventual stress testing as OP.
-Continue Toprol and lisinopril.
-Fulvestrant remains on hold per GI recommendations.
-Continue IV PPI.
HPI: Chanda is a 68-year-old female with past medical history of recurrent GI bleeding, CVA, AVR, Hodgkin lymphoma, breast cancer, hypertension, and hypothyroidism who presented to ER with symptomatic anemia and GI bleed. She was recently
admitted at 11/10/2023 to 11/11/2023 with same symptoms and was recommended GI evaluation, however she declined. After returning home, she had ongoing dark, black stool and became progressively symptomatic with this with chest pain and shortness
of breath. She returned to ER 11/13/2023 for reevaluation and was found to have hemoglobin of 5.0. Her INR was elevated at 5.54. Her Coumadin was held and she was given 3 units PRBCs. Hemoglobin improved this AM to 10.2. Initial EKG in the
setting of severe anemia had significant ST changes that have improved following transfusion. She also was noted to have elevated troponin with initial troponin negative, trending upwards to 0.130. Cardiology consulted for evaluation. She reports
she is feeling better this morning after receiving the units of blood. She has already been evaluated by GI and is agreeable to workup/EGD this admission. Chest pain and shortness of breath are resolved.
Progress Note - Application Support Administrator
Subjective
Date of Service: November 17, 2023
No chest pain recurrences while admitted.
Objective
Labs:
11/17/23 04:
Labs
Hgb 7.4 g/dL (12.0-16.0) L 11/17/23 04:29
Hct 21.7 % (37.0-47.0) L 11/17/23 04:29
Plt Count 224 10^3/uL (130-400) D 11/17/23 04:
PT 30.8 Sec (11.4-14.6) H 11/17/23 04:
INR 2.91 11/17/23 04:
Sodium 137 mmol/L (135-145) 11/17/23 04:
Potassium 3.8 mmol/L (3.5-5.1) 11/17/23 04:29
BUN 37 mg/dl (7-17) H 11/17/23 04:29
Creatinine 0.9 mg/dL (0.6-1.0) 11/17/23 04:29
Glucose 85 mg/dl (70-99) 11/17/23 04:29
Troponins
11/14/23 11/16/23
15:31 00:02
Troponin I 0.127 H* 0.051 H*
Vital Signs and I&O:
Vital Signs
Temp Pulse Resp BP Pulse Ox
97.5 F 93 18 155/51 98
11/17/23 07:00 11/17/23 07:00 11/17/23 07:00 11/17/23 08:20 11/17/23 07:00
Vital Signs
Temp Pulse Resp BP Pulse Ox
97.5 F 93 18 155/51 98
11/17/23 07:00 11/17/23 07:00 11/17/23 07:00 11/17/23 08:20 11/17/23 07:00
Intake & Output
11/15/23 11/16/23 11/17/23 11/18/23
06:59 06:59 06:59 06:59
Intake Total 480 / 480 370 / 370 840 / 840
Balance 480 / 480 370 / 370 840 / 840
Physical Exam
Physical Exam
GEN: No distress, awake, alert, oriented x3
HEENT: supple, anicteric, mmm
LUNGS: CTA b/l, no wheezes/rales
CV: Reg, S1/S2, 1/6 syst murmur
ABD: soft, BS+, NT/ND
EXT: No clubbing, cyanosis, or edema
NEURO: Gross non-focal
SKIN: Warm, dry, no rash
[2023-11-17 11:00] VITALS: BP 149/46
--- NOTE | 2023-11-17 11:58 | W.PN.HOSP.TC ---
Today's Communication/Plan
-
trend INR
Hep gtt <2.5 INR
Trend h/h
transfuse prn
GI recs
Assessment / Plan
Assessment / Plan
A/P:� Patient is a 68y F with PMH significant for mechanical AVR, chronic anticoagulation and breast cancer on fulvestrant who presents to ED complaining of chest pain, SOB and syncope this AM.
Suspected Upper GI Bleed
Symptomatic acute Blood Loss Anemia secondary to the above
�-Continuing ongoing blood loss but hemodynamically stable. Drop in H&H this morning. So far had 4 units of PRBC transfusion.
�- Follow H&H for any changes.
�- Hold Coumadin - but will not actively reverse for now - unless further / brisk bleeding is appreciated.
�- GI input appreciated
�- IV PPI BID for now.
- Plan for EGD once INR<2. Currently at 2.91. Heparin gtt once INR <2.5 per cards.
Chest Pain
SOB
Syncope
�- Likely secondary to blood loss anemia as noted above.
�- Troponin remains indeterminate range suspect secondary to non-RI troponin elevation
�- Cardiology evaluation noted and appreciated
�- Continue metoprolol.� Hold other medications, including ASA, given active bleeding.
�- Replace PRBCs as noted above and follow for clinical improvement.
Mechanical AVR
Chronic Coumadin Coagulopathy
�- Hold Coumadin for now as noted above.
�- Initial INR was 5.54
�- Last dose of Coumadin was 11/12 evening - 2.5mg.
�- Follow INR daily-today 2.9
�- Begin IV heparin for bridging once INR < 2.5 or less.
�- Restart heparin immediately following EGD if possible.
�- Cardiology input re: anticoagulation is appreciated.
Benign Hypertension
- avoid aggressive BP control.
�- cw lisinopril
�- Continue metoprolol with holding parameters.
Hypothyroidism
�- Stable.� Continue T4 replacement.
Breast Cancer
�- Maintained on fulvestrant.
�- Receives one monthly.� Next dose is due Friday.
�- Follow-up with Oncology as an outpatient.
DVT Prophylaxis:� SCDs in setting of GIB
Code Status:� DNR
Anticipated Discharge: > 48 hours
Subjective/Interval History
-
Date of Service: November 17, 2023
states frustrated due to slow INR drifts
having melanotic stools
Objective Data
-
Labs:
Laboratory Results
11/17/23 11/17/23
04: 14:00
WBC 8.8
Hgb 7.4 L Pending
Hct 21.7 L Pending
Plt Count 224 D
PT 30.8 H
INR 2.91
Sodium 137
Potassium 3.8
Chloride 110 H
Carbon Dioxide 21 L
BUN 37 H
Creatinine 0.9
Glucose 85
Calcium 8.1 L
Vital Signs:
Vital Signs
Temp Pulse Resp BP Pulse Ox
97.5 F 93 18 155/51 98
11/17/23 07:00 11/17/23 07:00 11/17/23 07:00 11/17/23 08:20 11/17/23 08:00
I&O
11/16/23 11/17/23 11/18/23
06:59 06:59 06:59
Intake Total 370 / 370 840 / 840
Balance 370 / 370 840 / 840
Physical Exam
-
General: No Apparent Distress and Cachectic
HEENT: Moist Mucous Membranes
Respiratory: Clear to Auscultation
Cardiac: Regular Rhythm, S1/S2 and Murmur
GI: Soft, Nontender, Nondistended and Normal Bowel Sounds
Musculoskeletal: No Edema
Skin: Warm
Neuro: Awake, Alert, Oriented, AO x 3 and No Motor Deficits
Psych: Calm
Data Reviewed
-
Total Time Spent with Patient (in minutes): 53
--- NOTE | 2023-11-17 13:06 | CM ---
Patient seen bedside, reports no new concerns at this time. CM will continue to follow for discharge planning needs.
Plan; home no needs anticipated.
[2023-11-17 14:14] LABS: Hematocrit 25.1 % (37.0-47.0); Hemoglobin 8.4 g/dL (12.0-16.0)
[2023-11-17 15:00] VITALS: BP 154/54
[2023-11-17] MEDS: TOPROL XL 37.5 MG PO (17:11)
[2023-11-17 19:00] VITALS: BP 129/38
[2023-11-17] MEDS: ATIVAN 0.5 MG PO (20:00)
[2023-11-17 23:00] VITALS: BP 139/50
[2023-11-18] VITALS (13 sets, daily range): BP systolic 10–220; BP diastolic 31–93
[2023-11-18] MEDS: SYNTHROID 88 MCG PO (06:14)
[2023-11-18 06:35] LABS: INR 1.85; PT 21.7 Sec (11.4-14.6)
[2023-11-18 06:47] LABS: % Basophils 1.7 % (0-2); % Eosinophils 7.5 % (0-6); % Immature Granulocytes 0.6 % (0-0.5); % Lymphocytes 10.6 % (20.5-51.1); % Monocytes 10.1 % (1.7-9.3); % Neutrophils 69.5 % (42.2-75.2); Absolute Basophils 0.2 10^3/uL (0-0.2); Absolute Eosinophils 0.7 10^3/uL (0-0.7); Absolute Immature Granulocytes 0.1 10^3/uL (0-0.05); Absolute Lymphocytes 0.9 10^3/uL (1.2-3.4); Absolute Monocytes 0.9 10^3/uL (0.1-0.6); Absolute Neutrophils 6.1 10^3/uL (1.4-6.5); Hematocrit 21.6 % (37.0-47.0); Hemoglobin 7.2 g/dL (12.0-16.0); Mean Corp Hgb Conc. 33.3 g/dL (33.0-37.0); Mean Corpuscular Hgb 29.3 pg (27.0-31.0); Mean Corpuscular Volume 87.8 fL (81.0-99.0); Mean Platelet Volume 10.3 fL (7.4-10.4); Nucleated Red Blood Cells % 0.2 %; Platelet Count 288 10^3/uL (130-400); Red Blood Cell Count 2.46 10^6/uL (4.20-5.40); Red Cell Dist. Width 16.4 % (11.5-14.5); White Blood Cell Count 8.8 10^3/uL (4.8-10.8)
[2023-11-18 07:19] LABS: Blood Urea Nitrogen 32 mg/dl (7-17); Calcium 8.2 mg/dl (8.4-10.2); Carbon Dioxide 19 mmol/L (22-30); Chloride 111 mmol/L (98-107); Estimated Creatinine Clearance 33 ml/min; Glucose 86 mg/dl (70-99); Sodium 138 mmol/L (135-145); eGFR > 60.00
[2023-11-18] MEDS: PROTONIX IV 40 MG IV (07:45)
[2023-11-18] MEDS: NSS (PRESERVATIVE FREE) 10 ML IV (07:46)
[2023-11-18] MEDS: ZESTRIL 10 MG PO (07:48)
--- NOTE | 2023-11-18 09:22 | W.PN.UPDATE ---
Update Note
Progress Note Update
s/p EGD for melena
- No gross lesions in the entire esophagus.
- Z-line irregular, 33 cm from the incisors. Biopsied.
- Small hiatal hernia.
- No gross lesions were noted in the entire examined stomach. No evidence of dark or fresh blood noted in the stomach,
- Normal examined duodenum. Bile noted in the duodenum.
Plan
- Await pathology results.
- Use Protonix (pantoprazole) 40 mg PO daily.
- Clear liquid diet.
- Telephone GI clinic for pathology results in 2 weeks.
- Perform a colonoscopy tomorrow.
- OK to start Heparin drip around 11:00am today.
- Black stool on rectal exam today
- If colonoscopy negative, then will do outpatient capsule study.
[2023-11-18] MEDS: HEPARIN 25000 UNITS/250 ML IV (11:06)
--- NOTE | 2023-11-18 11:20 | W.PN.CARDCBS ---
Addendum entered and electronically signed by Mikey Resendez MD 11/18/23 17:46:
I saw and examined the patient.
The [employer] Erector Helper's note was reviewed and I agree with the note.
Comment:
GEN: No distress, awake, Ox3
HEENT: supple, anicteric, mmm
LUNGS: CTA, no wheezes/rales
CV: Reg, S1/S2, / syst LSB, + click
ABD: soft, BS+, NT/ND
EXT: No edema
NEURO: Gross non-focal
SKIN: No rash
Plan:
EGD stable. for colonoscopy in AM
Cont IV heparin,
Hg 7.2
cont Toprol/Lisinopril.
Original Note:
Today's Communication / Plan
-
EGD rather unremarkable
Resume IV Heparin
Coumadin remains on hold
Colonoscopy planned for
T/c addition unit of blood for anemia
Impression / Plan
-
PCP: Dr. Haynes
Cardiology: Dr. Michelle Justice
Oncology: Dr. Khan at [facility]
Impression:
Presented with chest pain, shortness of breath
Melena
Acute GIB with severe symptomatic anemia
Supratherapeutic INR
Non-SC troponin elevation, troponin 0.141
Recent admission 11/10/2023 to 11/11/2023 for GIB
GIB w/ transfusion 08/2022 after starting Ribociclib
Right MCA stroke with M2 occlusion in setting of subtherapeutic INR while off Coumadin 07/15/22
patient bridged with Lovenox prior to colonoscopy 07/10/21, but no Lovenox bridge post-colonoscopy
Mechanical AVR pediatric size 2006
Chronic warfarin OAC
Mitral regurgitation with mitral stenosis
Tricuspid regurgitation with pulmonary hypertension
h/o CVA 2005; recurrent right MCA stroke secondary to M2 occlusion in setting of subtherapeutic INR 06/2022
h/o Hodgkin's lymphoma treated with radiation to left neck and pelvis 1973
h/o breast CA 2018 treated with B/L mastectomy, patient refused chemotherapy and radiation, but eventually agreeable to Tamoxifen
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
Recurrence of breast cancer 2021 - did not tolerate Ibrance or Ribociclib
HTN
Hypothyroidism
Lexiscan nuclear stress test 11/28/2021:�Positive EKG.� Perfusion imaging with small inferoseptal suggestive of significant bowel artifact vs ischemia
Echo 08/31/19: EF 55-60%, grade II diastolic dysfunction, moderate MR, mechanical aortic valve mean gradient 8 mmHg
Echo 07/16/21:�EF 70-75%, mild to mod MS with mean gradient 10 mmHg, [place] AVR mean gradient 13, PAP 43 mmHg
Echo 08/26/2022: Hyperdynamic LV.� EF 70 to 75%.� Mild to moderate MS peak/mean gradient 20/7 mmHg.� Moderate to severe MR.� Well-seated mechanical AVR with peak/mean gradient 11/6 mmHg without regurgitation.� Moderate to severe TR.� Moderate
pulmonary hypertension with PAP 50 to 55 mmHg.
Echo 02/10/2023: EF 60 to 65%.� Moderate mitral stenosis mean gradient 11 with severe MR.� Well-seated mechanical AVR with peak/mean gradient 15/8 mmHg, mild to moderate TR, mild pulmonary hypertension with PAP 45 to 48 mmHg.
Plan:
-Presented with severe symptomatic anemia due to GI bleed.� Hemoglobin 5.0 with INR 5.5 on arrival.
-S/p 4 unites PRBCs this admission.� Hgb 7.2 this AM.
-GI evaluation ongoing. EGD 11/18/3033:
No gross lesions were noted in the esophagus, entire stomach. No evidence of dark or fresh blood noted in the stomach.
-Plan is for colonoscopy 11/19/2023.
-Given history of CVA in the setting of subtherapeutic INR with holding Coumadin in the past, plan is to bridge with IV heparin when INR <2.5. INR 1.85 11/18/2023
-Per GI OK to start Heparin drip around 11:00am 11/18/[address] on hold 11/19/23 in am for colonoscopy
-Abnormal troponin, peaked at 0.141. Chest pain noted with ST changes on EKG in the setting of severe anemia.� Following transfusion and improvement in hemoglobin, her symptoms have resolved and EKG changes have improved. May consider eventual
stress testing as OP.
-Continue Toprol and lisinopril.
-Fulvestrant remains on hold per GI recommendations.
-Continue IV PPI.
HPI: Chanda is a 68-year-old female with past medical history of recurrent GI bleeding, CVA, AVR, Hodgkin lymphoma, breast cancer, hypertension, and hypothyroidism who presented to ER with symptomatic anemia and GI bleed. She was recently
admitted at 11/10/2023 to 11/11/2023 with same symptoms and was recommended GI evaluation, however she declined. After returning home, she had ongoing dark, black stool and became progressively symptomatic with this with chest pain and shortness
of breath. She returned to ER 11/13/2023 for reevaluation and was found to have hemoglobin of 5.0. Her INR was elevated at 5.54. Her Coumadin was held and she was given 3 units PRBCs. Hemoglobin improved this AM to 10.2. Initial EKG in the
setting of severe anemia had significant ST changes that have improved following transfusion. She also was noted to have elevated troponin with initial troponin negative, trending upwards to 0.130. Cardiology consulted for evaluation. She reports
she is feeling better this morning after receiving the units of blood. She has already been evaluated by GI and is agreeable to workup/EGD this admission. Chest pain and shortness of breath are resolved.
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
Subjective
Date of Service: November 18, 2023
Patient seen and examined. Patient's family including and son at bedside. Patient reports she is feeling significantly better after getting blood. She has had no further chest pain or shortness of breath. She does remain fatigued.
Objective
Labs:
11/18/23 05:50
11/18/23 05:50
Labs
Hgb 7.2 g/dL (12.0-16.0) L 11/18/23 05:50
Hct 21.6 % (37.0-47.0) L 11/18/23 05:50
Plt Count 288 10^3/uL (130-400) D 11/18/23 05:50
PT 21.7 Sec (11.4-14.6) H 11/18/23 05:50
INR 1.85 11/18/23 05:50
Sodium 138 mmol/L (135-145) 11/18/23 05:50
Potassium 4.0 mmol/L (3.5-5.1) 11/18/23 05:50
BUN 32 mg/dl (7-17) H 11/18/23 05:50
Creatinine 1.0 mg/dL (0.6-1.0) 11/18/23 05:50
Glucose 86 mg/dl (70-99) 11/18/23 05:50
Troponins
11/16/23
00:02
Troponin I 0.051 H*
Vital Signs and I&O:
Vital Signs
Temp Pulse Resp BP Pulse Ox
97.7 F 92 18 146/54 99
11/18/23 11:00 11/18/23 11:00 11/18/23 11:00 11/18/23 11:00 11/18/23 11:00
Vital Signs
Temp Pulse Resp BP Pulse Ox
97.7 F 92 18 146/54 99
11/18/23 11:00 11/18/23 11:00 11/18/23 11:00 11/18/23 11:00 11/18/23 11:00
Intake & Output
11/16/23 11/17/23 11/18/23 11/19/23
06:59 06:59 06:59 06:59
Intake Total 370 / 370 840 / 840 720 / 720
Balance 370 / 370 840 / 840 720 / 720
Physical Exam
Physical Exam
GEN: No distress, awake, Ox3, thin, pale
HEENT: supple, anicteric, mmm
LUNGS: CTA, no wheezes/rales
CV: Reg, S1/S2, 2/6 apical murmur, audible click of mechanical valve
ABD: soft, BS+, NT/ND
EXT: No edema, clubbing or cyanosis
NEURO: Gross non-focal
SKIN: No rash, warm, dry, pink
[2023-11-18 12:03] LABS: APTT 30.7 Sec (23.4-35.0)
--- NOTE | 2023-11-18 13:19 | W.PN.HOSP.TC ---
Today's Communication/Plan
-
C-scope tomm
stop hep gtt at 6am
trend hgb
transfuse prbc
Assessment / Plan
Assessment / Plan
A/P:� Patient is a 68y F with PMH significant for mechanical AVR, chronic anticoagulation and breast cancer on fulvestrant who presents to ED complaining of chest pain, SOB and syncope this AM.
Suspected GI Bleed likely LGIB vs. SB
Symptomatic acute Blood Loss Anemia secondary to the above
�-Continuing ongoing blood loss but hemodynamically stable. Drop in H&H this morning. will transfuse additional 1u PRVC.
�- Follow H&H for any changes.
�- Hold Coumadin - but will not actively reverse for now - unless further / brisk bleeding is appreciated.
�- GI input appreciated
�- ppi
- hep gtt started as INR <2.5 with plan stop gtt at 6am per GI.
- s/p EGD with No gross lesions were noted in the entire examined stomach. No evidence of dark or fresh blood noted in the stomach .Normal examined duodenum.� Bile noted in the duodenum.
- Plan for C-scope tomm. Gavilax ordered. If negative will need OP capsule
Chest Pain resolved
SOB resolved
Syncope
�- Likely secondary to blood loss anemia as noted above.
�- Troponin remains indeterminate range suspect secondary to non-CT troponin elevation
�- Cardiology evaluation noted and appreciated
�- Continue metoprolol.� Hold other medications, including ASA, given active bleeding.
�- Replace PRBCs as noted above and follow for clinical improvement.
Mechanical AVR
Chronic Coumadin Coagulopathy
�- Hold Coumadin for now as noted above.
�- Initial INR was 5.54
�- Last dose of Coumadin was 11/12 evening - 2.5mg.
�- Follow INR daily-today 1.85
�- start IV heparin for bridging
�- Restart heparin immediately following Colon if possible.
�- Cardiology input re: anticoagulation is appreciated.
Benign Hypertension
- avoid aggressive BP control.
�- cw lisinopril
�- Continue metoprolol with holding parameters.
Hypothyroidism
�- Stable.� Continue T4 replacement.
Breast Cancer
�- Maintained on fulvestrant.
�- Receives one monthly.� Next dose is due Friday.
�- Follow-up with Oncology as an outpatient.
DVT Prophylaxis:� SCDs in setting of GIB
Code Status:� DNR
d/w with spouse at bedside.
Anticipated Discharge: > 48 hours
Subjective/Interval History
-
Date of Service: November 18, 2023
states feeling tired post EGD
Objective Data
-
Labs:
Laboratory Results
11/18/23 11/18/23 11/18/23
05:50 11:31 17:15
WBC 8.8
Hgb 7.2 L
Hct 21.6 L
Plt Count 288 D
PT 21.7 H
INR 1.85
APTT 30.7 Cancelled
Sodium 138
Potassium 4.0
Chloride 111 H
Carbon Dioxide 19 L
BUN 32 H
Creatinine 1.0
Glucose 86
Calcium 8.2 L
11/18/23
17:30
WBC
Hgb
Hct
Plt Count
PT
INR
APTT Pending
Sodium
Potassium
Chloride
Carbon Dioxide
BUN
Creatinine
Glucose
Calcium
Vital Signs:
Vital Signs
Temp Pulse Resp BP Pulse Ox
97.7 F 92 18 146/54 99
11/18/23 11:00 11/18/23 11:00 11/18/23 11:00 11/18/23 11:00 11/18/23 11:00
I&O
11/17/23 11/18/23 11/19/23
06:59 06:59 06:59
Intake Total 840 / 840 720 / 720
Balance 840 / 840 720 / 720
Physical Exam
-
General: No Apparent Distress and Cachectic
HEENT: Moist Mucous Membranes
Respiratory: Clear to Auscultation
Cardiac: Regular Rhythm, S1/S2 and Murmur
GI: Soft, Nontender, Nondistended and Normal Bowel Sounds
Musculoskeletal: No Edema
Skin: Warm
Neuro: Awake, Alert, Oriented, AO x 3 and No Motor Deficits
Psych: Calm
Data Reviewed
-
Total Time Spent with Patient (in minutes): 54
[2023-11-18] MEDS: GAVILAX 238 GM PO (15:07)
[2023-11-18] MEDS: TOPROL XL 37.5 MG PO (17:18)
[2023-11-18 17:45] LABS: APTT 53.5 Sec (23.4-35.0)
[2023-11-18 20:06] LABS: Hematocrit 30.1 % (37.0-47.0); Hemoglobin 10.6 g/dL (12.0-16.0)
[2023-11-18] MEDS: ATIVAN 0.5 MG PO (22:24)
[2023-11-18] MEDS: APRESOLINE 5 MG IV (23:25)
[2023-11-19 01:00] LABS: APTT 103.1 Sec (23.4-35.0)
[2023-11-19 03:07] VITALS: BP 162/59
[2023-11-19] MEDS: GAVILAX 125 GM PO (04:41)
[2023-11-19] MEDS: SYNTHROID 88 MCG PO (04:45)
[2023-11-19 06:00] LABS: % Basophils 1.7 % (0-2); % Immature Granulocytes 0.3 % (0-0.5); % Lymphocytes 9.4 % (20.5-51.1); % Neutrophils 70.6 % (42.2-75.2); Absolute Basophils 0.2 10^3/uL (0-0.2); Absolute Neutrophils 7.7 10^3/uL (1.4-6.5); Hematocrit 31.9 % (37.0-47.0); Hemoglobin 10.7 g/dL (12.0-16.0); Mean Corp Hgb Conc. 33.5 g/dL (33.0-37.0); Mean Corpuscular Hgb 29.9 pg (27.0-31.0); Mean Corpuscular Volume 89.1 fL (81.0-99.0); Mean Platelet Volume 10.4 fL (7.4-10.4); Nucleated Red Blood Cells % 0 %; Platelet Count 367 10^3/uL (130-400); Red Blood Cell Count 3.58 10^6/uL (4.20-5.40); Red Cell Dist. Width 15.6 % (11.5-14.5); White Blood Cell Count 10.9 10^3/uL (4.8-10.8)
[2023-11-19 06:04] LABS: INR 1.42; PT 17.6 Sec (11.4-14.6)
[2023-11-19 06:33] LABS: Blood Urea Nitrogen 21 mg/dl (7-17); Calcium 8.8 mg/dl (8.4-10.2); Carbon Dioxide 17 mmol/L (22-30); Chloride 109 mmol/L (98-107); Estimated Creatinine Clearance 41 ml/min; Glucose 66 mg/dl (70-99); Potassium 3.8 mmol/L (3.5-5.1); Sodium 138 mmol/L (135-145); eGFR > 60.00
[2023-11-19 07:00] VITALS: BP 173/80
[2023-11-19] MEDS: PROTONIX 40 MG PO (07:15)
[2023-11-19] MEDS: ZESTRIL 10 MG PO (07:15)
--- NOTE | 2023-11-19 09:12 | W.PN.UPDATE ---
Update Note
Progress Note Update
s/p Colonoscopy for Melena
- The examined portion of the ileum was normal.
- The colon (entire examined portion) was moderately tortuous. Exmining the tight colon bends needed manuers to completely expose the colonic mucosa with some mild mucosal erythema without bleeding. Advancing the scope required using manual
pressure. No old or fresh blood noted in the colon..
- Internal hemorrhoids.
- No specimens collected.
Plan
- No evidence of old or fresh blood noted in the colon or terminal ileum.
- To visualize the small bowel, perform video capsule endoscopy at appointment to be scheduled.
- OK to start anticoagulation today.
--- NOTE | 2023-11-19 10:35 | PN.CDI ---
CDI
- -
CDI:
Physician Documentation Request
Admit Date: 11/13/23 21:07
Dear Doctor Rosalina,
Height: 4 ft 10.5 inches
Weight: 87 lb
BMI: 18.0
11/16 RD notes states CBW (11/13) 87 lb 4.7849 oz BMI 18 under wt/ht.
If possible, please provide an associated diagnosis related to the abnormal BMI, such as:
BMI < or = to 19
Underweight
Weight Loss
Cachectic
Anorexia
- BMI is not significant
- Other
- Unable to determine
Use of terms such as suspected, likely, concern for, or probable (associated with a specific diagnosis that is being evaluated, monitored, or treated as if it exists) are acceptable and can be coded in the inpatient setting, when documented at the
time of discharge.
Thank you,
Sandra Parham RN, BSN
CDI Specialist
tiger text
Please use your independent medical judgment in providing your response.
[2023-11-19 11:00] VITALS: BP 169/69
--- NOTE | 2023-11-19 11:18 | W.PN.CARDCBS ---
Addendum entered and electronically signed by Mikey Resendez MD 11/19/23 12:19:
GEN: No distress, awake, Ox3
HEENT: supple, anicteric, mmm
LUNGS: CTA, no wheezes/rales
CV: Reg, S1/S2, 1/6 syst LSB, + click
ABD: soft, BS+, NT/ND
EXT: No edema
NEURO: Gross non-focal
SKIN: No rash
Plan:
Colonoscopy unremarkable. Restart Coumadin today 4 mg daily and restart IV heparin. Goal INR 2.5-3.5.
Check echocardiogram. Check haptoglobin, LDH and reticulocyte count.
Could consider Lovenox bridge starting tomorrow.
Will need outpatient capsule endoscopy.
Original Note:
Today's Communication / Plan
-
Would resume Coumadin 4 mg this evening with daily dosing based on INR
Continue Heparin gtt until INR >2.5
Will check echo
Check haptoglobin, LDH and Retic count in am
Impression / Plan
-
PCP: Dr. Haynes
Cardiology: Dr. Michelle Justice
Oncology: Dr. Khan at [facility]
Impression:
Presented with chest pain, shortness of breath
Melena
Acute GIB with severe symptomatic anemia
Supratherapeutic INR
Non-NE troponin elevation, troponin 0.141
Recent admission 11/10/2023 to 11/11/2023 for GIB
GIB w/ transfusion 08/2022 after starting Ribociclib
Right MCA stroke with M2 occlusion in setting of subtherapeutic INR while off Coumadin 07/15/22
patient bridged with Lovenox prior to colonoscopy 07/10/21, but no Lovenox bridge post-colonoscopy
Mechanical AVR pediatric size 2006
Chronic warfarin OAC
Mitral regurgitation with mitral stenosis
Tricuspid regurgitation with pulmonary hypertension
h/o CVA 2005; recurrent right MCA stroke secondary to M2 occlusion in setting of subtherapeutic INR 06/2022
h/o Hodgkin's lymphoma treated with radiation to left neck and pelvis 1973
h/o breast CA 2018 treated with B/L mastectomy, patient refused chemotherapy and radiation, but eventually agreeable to Tamoxifen
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
Recurrence of breast cancer 2021 - did not tolerate Ibrance or Ribociclib
HTN
Hypothyroidism
Lexiscan nuclear stress test 11/28/2021:�Positive EKG.� Perfusion imaging with small inferoseptal suggestive of significant bowel artifact vs ischemia
Echo 08/31/19: EF 55-60%, grade II diastolic dysfunction, moderate MR, mechanical aortic valve mean gradient 8 mmHg
Echo 07/16/21:�EF 70-75%, mild to mod MS with mean gradient 10 mmHg, [facility] AVR mean gradient 13, PAP 43 mmHg
Echo 08/26/2022: Hyperdynamic LV.� EF 70 to 75%.� Mild to moderate MS peak/mean gradient 20/7 mmHg.� Moderate to severe MR.� Well-seated mechanical AVR with peak/mean gradient 11/6 mmHg without regurgitation.� Moderate to severe TR.� Moderate
pulmonary hypertension with PAP 50 to 55 mmHg.
Echo 02/10/2023: EF 60 to 65%.� Moderate mitral stenosis mean gradient 11 with severe MR.� Well-seated mechanical AVR with peak/mean gradient 15/8 mmHg, mild to moderate TR, mild pulmonary hypertension with PAP 45 to 48 mmHg.
Plan:
-Presented with severe symptomatic anemia due to GI bleed.� Hemoglobin 5.0 with INR 5.5 on arrival.
-S/p 5 units PRBCs this admission.� Hgb improved this am 10.7
-GI evaluation was unremarkable EGD 11/18/3033: No gross lesions were noted in the esophagus, entire stomach. No evidence of dark or fresh blood noted in the stomach. Colonoscopy 11/19/2023 with no source of bleeding identified. Consider outpt
capsule study
-Given history of CVA in the setting of subtherapeutic INR with holding Coumadin in the past, Continue to bridge with IV heparin as long as INR <2.5. INR 1.42 11/19/2023
-Continue Heparin drip and resume Warfarin 4 mg this evening. Daily dose Warfarin dosing
-May benefit from H&H when she gets INR checked at outpt to monitor Hgb closely
-Abnormal troponin, peaked at 0.141. Chest pain noted with ST changes on EKG in the setting of severe anemia.� Following transfusion and improvement in hemoglobin, her symptoms have resolved and EKG changes have improved. May consider eventual
stress testing as OP.
-Continue Toprol and lisinopril.
-Fulvestrant remains on hold per GI recommendations.
-last echo 01/2023 showed stable EF with mod MS and severe MR. Will repeat echo this admission
-Check haptoglobin, LDH and Retic count in am given mechanical AVR
-Continue IV PPI.
HPI: Chanda is a 68-year-old female with past medical history of recurrent GI bleeding, CVA, AVR, Hodgkin lymphoma, breast cancer, hypertension, and hypothyroidism who presented to ER with symptomatic anemia and GI bleed. She was recently
admitted at 11/10/2023 to 11/11/2023 with same symptoms and was recommended GI evaluation, however she declined. After returning home, she had ongoing dark, black stool and became progressively symptomatic with this with chest pain and shortness
of breath. She returned to ER 11/13/2023 for reevaluation and was found to have hemoglobin of 5.0. Her INR was elevated at 5.54. Her Coumadin was held and she was given 3 units PRBCs. Hemoglobin improved this AM to 10.2. Initial EKG in the
setting of severe anemia had significant ST changes that have improved following transfusion. She also was noted to have elevated troponin with initial troponin negative, trending upwards to 0.130. Cardiology consulted for evaluation. She reports
she is feeling better this morning after receiving the units of blood. She has already been evaluated by GI and is agreeable to workup/EGD this admission. Chest pain and shortness of breath are resolved.
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
Subjective
Date of Service: November 19, 2023
Patient seen and examined. at bedside. Completed colonoscopy this am without evidence of bleeding. She denies chest pain, SOB, dizziness
Objective
Labs:
11/19/23 05:21
11/19/23 05:21
Labs
Hgb 10.7 g/dL (12.0-16.0) L 11/19/23 05:21
Hct 31.9 % (37.0-47.0) L 11/19/23 05:21
Plt Count 367 10^3/uL (130-400) D 11/19/23 05:21
PT 17.6 Sec (11.4-14.6) H 11/19/23 05:21
INR 1.42 11/19/23 05:21
APTT 103.1 Sec (23.4-35.0) H 11/19/23 00:40
Sodium 138 mmol/L (135-145) 11/19/23 05:21
Potassium 3.8 mmol/L (3.5-5.1) 11/19/23 05:21
BUN 21 mg/dl (7-17) H 11/19/23 05:21
Creatinine 0.8 mg/dL (0.6-1.0) 11/19/23 05:21
Glucose 66 mg/dl (70-99) L 11/19/23 05:21
Vital Signs and I&O:
Vital Signs
Temp Pulse Resp BP Pulse Ox
97.6 F 103 18 173/80 98
11/19/23 07:00 11/19/23 07:00 11/19/23 07:00 11/19/23 07:00 11/19/23 07:15
Vital Signs
Temp Pulse Resp BP Pulse Ox
97.6 F 103 18 173/80 98
11/19/23 07:00 11/19/23 07:00 11/19/23 07:00 11/19/23 07:00 11/19/23 07:15
Intake & Output
11/17/23 11/18/23 11/19/23 11/20/23
06:59 06:59 06:59 06:59
Intake Total 840 / 840 720 / 720 1929
Balance 840 / 840 720 / 720 1929
Physical Exam
Physical Exam
GEN: No distress, awake, Ox3, thin, pale
HEENT: supple, anicteric, mmm
LUNGS: CTA, no wheezes/rales
CV: Reg, S1/S2, 2/6 apical murmur, audible click of mechanical valve
ABD: soft, BS+, NT/ND
EXT: No edema, clubbing or cyanosis
NEURO: Gross non-focal
SKIN: No rash, warm, dry, pink
[2023-11-19] MEDS: HEPARIN 25000 UNITS/250 ML IV (11:54)
[2023-11-19] MEDS: ATIVAN PO (12:14)
[2023-11-19] MEDS: COUMADIN 4 MG PO (12:15)
[2023-11-19] MEDS: ATIVAN 0.5 MG PO ×2 (12:19→22:25)
[2023-11-19 12:23] LABS: APTT 28.3 Sec (23.4-35.0)
--- NOTE | 2023-11-19 13:28 | W.PN.HOSP.TC ---
Today's Communication/Plan
-
trend h/h with next PTT in evening
cont hep-coumadin bridge
LDH/Hapto/retic ordered
Assessment / Plan
Assessment / Plan
A/P:� Patient is a 68y F with PMH significant for mechanical AVR, chronic anticoagulation and breast cancer on fulvestrant who presents to ED complaining of chest pain, SOB and syncope this AM.
Suspected GI Bleed likely LGIB vs. SB
Symptomatic acute Blood Loss Anemia secondary to the above
�-Continuing ongoing blood loss but hemodynamically stable. Repeat H&H with next PTT. Status post 5 units of PRBC so far
�- Follow H&H for any changes.
�- GI input appreciated
�- ppi
- s/p EGD with No gross lesions were noted in the entire examined stomach. No evidence of dark or fresh blood noted in the stomach .Normal examined duodenum.� Bile noted in the duodenum.
- s/p Colonoscopy unremarkable. Patient will need outpatient video capsule endoscopy.
-Restarted on heparin drip and Coumadin. Cardiology with possible Lovenox/Coumadin bridge in the morning on discharge
Chest Pain resolved
SOB resolved
Syncope
�- Likely secondary to blood loss anemia as noted above.
�- Troponin remains indeterminate range suspect secondary to non-TN troponin elevation
�- Cardiology evaluation noted and appreciated
�- Continue metoprolol.� Hold other medications, including ASA, given active bleeding.
�- Replace PRBCs as noted above and follow for clinical improvement.
Mechanical AVR
Chronic Coumadin Coagulopathy
�- Hold Coumadin for now as noted above.
�- Initial INR was 5.54
�- Last dose of Coumadin was 11/12 evening - 2.5mg.
�- Follow INR daily-today 1.42
�- start IV heparin for bridging
�- Restart heparin immediately and with coumadin
�- Cardiology input re: anticoagulation is appreciated.
Benign Hypertension
- avoid aggressive BP control.
�- cw lisinopril
�- Continue metoprolol with holding parameters.
Hypothyroidism
�- Stable.� Continue T4 replacement.
Breast Cancer
�- Maintained on fulvestrant.
�- Receives one monthly.� Next dose is due Friday.
�- Follow-up with Oncology as an outpatient.
DVT Prophylaxis:� SCDs in setting of GIB
Code Status:� DNR
d/w with spouse at bedside.
Anticipated Discharge: 24 - 48 hours
Subjective/Interval History
-
Date of Service: November 19, 2023
texting her oncology
worried about her h/h
Objective Data
-
Labs:
Laboratory Results
11/19/23 11/19/23
05:21 12:05
WBC 10.9 H
Hgb 10.7 L
Hct 31.9 L
Plt Count 367 D
PT 17.6 H
INR 1.42
APTT 28.3
Sodium 138
Potassium 3.8
Chloride 109 H
Carbon Dioxide 17 L
BUN 21 H
Creatinine 0.8
Glucose 66 L
Calcium 8.8
Vital Signs:
Vital Signs
Temp Pulse Resp BP Pulse Ox
97.9 F 102 18 169/69 98
11/19/23 11:00 11/19/23 11:00 11/19/23 11:00 11/19/23 11:00 11/19/23 11:00
I&O
11/18/23 11/19/23 11/20/23
06:59 06:59 06:59
Intake Total 720 / 720 1929
Balance 720 / 720 1929
Physical Exam
-
General: No Apparent Distress and Cachectic
HEENT: Moist Mucous Membranes
Respiratory: Clear to Auscultation
Cardiac: Regular Rhythm, S1/S2 and Murmur
GI: Soft, Nontender, Nondistended and Normal Bowel Sounds
Musculoskeletal: No Edema
Skin: Warm
Neuro: Awake, Alert, Oriented, AO x 3 and No Motor Deficits
Psych: Calm
[2023-11-19 15:00] VITALS: BP 173/78
--- NOTE | 2023-11-19 16:58 | CM ---
Chart reviewed, home when stable, no needs.
Plan; Home when stable, no needs.
[2023-11-19] MEDS: TOPROL XL 37.5 MG PO (17:12)
[2023-11-19 19:15] VITALS: BP 169/72
[2023-11-19 19:31] LABS: APTT 70.6 Sec (23.4-35.0)
[2023-11-19 20:39] LABS: Hematocrit 27.5 % (37.0-47.0); Hemoglobin 9.6 g/dL (12.0-16.0)
[2023-11-19 23:14] VITALS: BP 152/55
[2023-11-20 02:18] LABS: APTT > 200 Sec (23.4-35.0)
[2023-11-20 03:15] VITALS: BP 131/46
[2023-11-20 05:32] LABS: % Basophils 2.1 % (0-2); % Eosinophils 8.5 % (0-6); % Immature Granulocytes 0.4 % (0-0.5); % Lymphocytes 12.1 % (20.5-51.1); % Monocytes 10.5 % (1.7-9.3); % Neutrophils 66.4 % (42.2-75.2); Absolute Basophils 0.2 10^3/uL (0-0.2); Absolute Eosinophils 0.8 10^3/uL (0-0.7); Absolute Lymphocytes 1.1 10^3/uL (1.2-3.4); Absolute Neutrophils 6.1 10^3/uL (1.4-6.5); Hematocrit 26.9 % (37.0-47.0); Hemoglobin 9.2 g/dL (12.0-16.0); Mean Corp Hgb Conc. 34.2 g/dL (33.0-37.0); Mean Corpuscular Hgb 30.1 pg (27.0-31.0); Mean Corpuscular Volume 87.9 fL (81.0-99.0); Mean Platelet Volume 10.2 fL (7.4-10.4); Nucleated Red Blood Cells % 0.2 %; Platelet Count 394 10^3/uL (130-400); Red Blood Cell Count 3.06 10^6/uL (4.20-5.40); Red Cell Dist. Width 15.9 % (11.5-14.5); Reticulocyte Count 5.9 % (0.4-2.8); White Blood Cell Count 9.2 10^3/uL (4.8-10.8)
[2023-11-20 05:33] LABS: INR 1.65; PT 19.7 Sec (11.4-14.6)
[2023-11-20 05:41] LABS: Blood Urea Nitrogen 15 mg/dl (7-17); Calcium 8.3 mg/dl (8.4-10.2); Carbon Dioxide 17 mmol/L (22-30); Chloride 115 mmol/L (98-107); Estimated Creatinine Clearance 41 ml/min; Glucose 71 mg/dl (70-99); LDH 296 U/L (120-246); Potassium 4.1 mmol/L (3.5-5.1); Sodium 134 mmol/L (135-145); eGFR > 60.00
[2023-11-20] MEDS: SYNTHROID 88 MCG PO (06:04)
[2023-11-20] MEDS: PROTONIX 40 MG PO (07:15)
[2023-11-20] MEDS: ZESTRIL 10 MG PO (07:15)
[2023-11-20 07:24] VITALS: BP 182/64
[2023-11-20 09:10] LABS: ALT (SGPT) 14 U/L (0-35); AST (SGOT) 32 U/L (14-36); Albumin 2.4 g/dl (3.5-5.0); Alkaline Phosphatase 70 U/L (38-126); Direct Bilirubin 0.5 mg/dl (0.0-0.4); Total Bilirubin 0.7 mg/dl (0.2-1.3); Total Protein 4.6 g/dl (6.3-8.2)
[2023-11-20] MEDS: HEPARIN 25000 UNITS/250 ML IV (10:08)
--- NOTE | 2023-11-20 10:36 | W.PN.HOSP.TC ---
Addendum entered and electronically signed by Eliud Romano MD 11/20/23 13:56:
underweight
Original Note:
Today's Communication/Plan
-
Heme input
cards recs
monitor BP may need meds adjustment
trend hgb
Assessment / Plan
Assessment / Plan
A/P:� Patient is a 68y F with PMH significant for mechanical AVR, chronic anticoagulation and breast cancer on fulvestrant who presents to ED complaining of chest pain, SOB and syncope this AM.
Suspected GI Bleed likely LGIB vs. SB
Symptomatic acute Blood Loss Anemia secondary to the above
�-Continuing ongoing blood loss but hemodynamically stable. Hgb at 9.2 Status post 5 units of PRBC so far
�- Follow H&H for any changes.
�- GI input appreciated
�- ppi
- s/p EGD with No gross lesions were noted in the entire examined stomach. No evidence of dark or fresh blood noted in the stomach .Normal examined duodenum.� Bile noted in the duodenum.
- s/p Colonoscopy unremarkable. Patient will need outpatient video capsule endoscopy.
- retic count mild elevated as expected. LDH not significantly elevated. T.bili wnl. doubt hemolysis.
- Restarted on heparin drip and Coumadin. Cardiology with possible Lovenox/Coumadin bridge on discharge. TT GI as pt with multiple question re-next steps, procedures etc.
- Will ask heme for input
Chest Pain resolved
SOB resolved
Syncope
�- Likely secondary to blood loss anemia as noted above.
�- Troponin remains indeterminate range suspect secondary to non-CT troponin elevation
�- Cardiology evaluation noted and appreciated
�- Continue metoprolol.� Hold other medications, including ASA, given active bleeding.
�- Replace PRBCs as noted above and follow for clinical improvement.
Mechanical AVR
Chronic Coumadin Coagulopathy
�- Hold Coumadin for now as noted above.
�- Initial INR was 5.54
�- Last dose of Coumadin was 11/12 evening - 2.5mg.
�- Follow INR daily-today 1.65
�- start IV heparin for bridging
�- Restarted heparin immediately and with coumadin
�- Cardiology input re: anticoagulation is appreciated.
Benign Hypertension-elevated
�- cw lisinopril
�- Continue metoprolol with holding parameters.
- Probably dose increase of lisinopril and metoprolol -await cards input as well known to them
Hypothyroidism
�- Stable.� Continue T4 replacement.
Breast Cancer
�- Maintained on fulvestrant.
�- Receives one monthly.� Next dose is due Friday.
�- Follow-up with Oncology as an outpatient.
DVT Prophylaxis:� hep-coumadin
Code Status:� DNR
Anticipated Discharge: Within 24 hours
Subjective/Interval History
-
Date of Service: November 20, 2023
Pt with multiple questions in regards for procedures, capsule endo, hgb etc
answered all her question to her satisfaction
Objective Data
-
Labs:
Laboratory Results
11/20/23 11/20/23 11/20/23
01:38 04:36 10:25
WBC 9.2
Hgb 9.2 L
Hct 26.9 L
Plt Count 394
PT 19.7 H
INR 1.65
APTT > 200 H* Pending
Sodium 134 L
Potassium 4.1
Chloride 115 H
Carbon Dioxide 17 L
BUN 15
Creatinine 0.8
Glucose 71
Calcium 8.3 L
Total Bilirubin 0.7
AST 32
ALT 14
Alkaline Phosphatase 70
Vital Signs:
Vital Signs
Temp Pulse Resp BP Pulse Ox
98.6 F 94 16 182/64 98
11/20/23 07:24 11/20/23 07:24 11/20/23 07:24 11/20/23 07:24 11/20/23 07:24
I&O
11/19/23 11/20/23 11/21/23
06:59 06:59 06:59
Intake Total 1929 960 / 96
Balance 1929 96
Physical Exam
-
General: No Apparent Distress and Cachectic
HEENT: Moist Mucous Membranes
Respiratory: Non Labored Respirations
Cardiac: Regular Rhythm, S1/S2 and Murmur
GI: Nondistended
Musculoskeletal: No Edema
Skin: Warm
Neuro: Awake, Alert, Oriented, AO x 3 and No Motor Deficits
Psych: Calm
Data Reviewed
-
Total Time Spent with Patient (in minutes): 55
--- NOTE | 2023-11-20 10:48 | CM ---
Patient seen, reports no new concerns at this time. Patient inquiring about outpatient blood transfusion centers. CM will look into for patient, will continue to follow for discharge planning needs.
Plan; home no needs anticipated.
--- NOTE | 2023-11-20 10:57 | CON.ONC ---
Impression
Impression
Acute blood loss with negative upper and lower endoscopy reticulocyte count approaching 6 suggests adequate marrow response
Suspect bleeding source small bowel given history of aortic stenosis likely AVM
Mechanical valve with appropriate anticoagulation
History of NHL post XRT
History of breast carcinoma on palbociclib/AI
Plan
Plan
Evaluate substrate
Replete iron as needed
Rule out hemolysis will check haptoglobin and LDH
Suggest evaluation of small bowel for AVMs MAGNOLIA
No blood noted on colonoscopy
BUN normalized previous elevation indicates possible bleeding from the early portion of the small bowel
Aggressive monitoring with weekly CBC and type and cross patient will be transferring care to [facility]
Patient History
History of Present Illness
68-year-old female with a past med history of Hodgkin's lymphoma, breast cancer, aortic stenosis, mechanical AVR and hypertension with recent hospitalization for GI bleed who presents with shortness of breath, chest pain and syncope presented with
shortness of breath and syncope. Initial EKG revealed ischemic changes, elevated troponin with a hemoglobin of 5. Patient received transfusion support and has completed an upper and lower endoscopy given that she reported melena and there was
concern for an upper GI bleed.� � Patient has a cough, and pulmonary now consulted.
Past-Medical/Surgical History
PMHx: Hodgkin lymphoma s/p XRT, hypothyroidism, breast cancer, hypertension, aortic stenosis, history of CVA, history of mechanical aortic valve replacement (2006)
PSHx: Splenectomy, , mastectomy, thyroidectomy
Social History
Tobacco: Non-smoker
Alcohol: None
Drug: None
Family History
Family History: Reviewed & Not Pertinent
Patient Medication
Medication Instructions Recorded Confirmed Last Taken Type
fulvestrant 250 mg/5 mL 500 mg IM MONTHLY Cancer 07/16/21 11/14/23 10/21/23 History
intramuscular syringe
levothyroxine 88 mcg tablet 88 mcg PO DAILY AT 0700 Thyroid 07/16/21 11/14/23 11/13/23 History
omeprazole 10 mg capsule,delayed 20 mg PO DAILY Gastrointestinal 08/25/22 11/14/23 11/12/23 History
release issue
metoprolol succinate 25 mg 37.5 mg PO QPM Blood Pressure 10/27/23 11/14/23 11/12/23 History
tablet,extended release 24 hr
lisinopril 10 mg tablet 10 mg PO QPM Blood Pressure 10/28/23 11/14/23 11/12/23 History
celecoxib 100 mg capsule 100 mg PO BIDPRN PRN nerve PAIN 11/10/23 11/14/23 1 Month Ago History
~10/10/23
lorazepam 0.5 mg tablet 0.5 mg PO HSPRN PRN ANXIETY/ sleep 11/10/23 11/14/23 1 Month Ago History
~10/10/23
warfarin 2.5 mg tablet 2.5 mg PO QPM Blood Clot 11/10/23 11/14/23 11/12/23 History
Prevention/Tx
bisacodyl 10 mg rectal suppository 10 mg [place] DAILYPRN PRN constipation 11/13/23 11/14/23 Unknown History
(Dulcolax (bisacodyl))
magnesium citrate 150 ml PO BIDPRN PRN constipation 11/13/23 11/14/23 11/12/23 History
Active Medications
Generic Name Dose Route Start Last Admin
Trade Name Freq PRN Reason Stop Dose Admin
Acetaminophen 650 mg 11/13/23 21:29
Acetaminophen 325 Mg Tablet PO 12/11/23 21:28
Q4HPRN PRN
Mild Pain / Temp > 101
Hydralazine HCl 5 mg 11/18/23 21:53 11/18/23 23:25
Hydralazine 20 Mg/Ml Vial IV 12/16/23 21:52 5 mg
Q4HPRN PRN Administration
sbp>170
Heparin Sodium 25,000 units in 250 mls @ 0 mls/hr 11/19/23 11:30 11/20/23 10:08
Heparin 82711 Units/250 Ml IV 250 mls
PER PROTOCOL PIETER Administration
Protocol
Per Protocol
Levothyroxine Sodium 88 mcg 11/14/23 07:00 11/20/23 06:04
Levothyroxine 88 Mcg Tablet PO 12/12/23 06:59 88 mcg
DAILY AT 0700 PIETER Administration
Lisinopril 10 mg 11/15/23 15:00 11/20/23 07:15
Lisinopril 10 Mg Tablet PO 12/13/23 14:59 10 mg
DAILY PIETER Administration
Lorazepam 0.5 mg 11/14/23 21:05 11/19/23 22:25
Lorazepam 0.5 Mg Tablet PO 12/12/23 21:04 0.5 mg
HSPRN PRN Administration
anxiety/sleep
Metoprolol Succinate 37.5 mg 11/14/23 18:00 11/19/23 17:12
Metoprolol 25 Mg Extended Release Tablet PO 12/12/23 17:59 37.5 mg
QPM PIETER Administration
Ondansetron HCl 4 mg 11/13/23 21:29
Ondansetron 4 Mg/2 Ml Vial IV 12/11/23 21:28
Q6HPRN PRN
nausea and vomiting
Pantoprazole Sodium 40 mg 11/19/23 08:00 11/20/23 07:15
Pantoprazole 40 Mg Delayed Release Tablet PO 12/17/23 07:59 40 mg
DAILY PIETER Administration
Sodium Chloride 0 flush 11/13/23 22:00 11/16/23 08:31
Sodium Chloride 0.9% (Flush) Syringe IV 12/11/23 21:59 2 flush
PER PROTOCOL PIETER Administration
Warfarin Sodium 4 mg 11/20/23 18:00
Warfarin 4 Mg Tablet PO 11/25/23 17:59
QPM PIETER
Review of Systems
-
12 point review of systems fails to elicit additional complaints other than those noted in the HPI with the exception of a sensation of feeling cold.
Physical Exam
-
Physical Exam
General: No Apparent Distress and Other (Thin)
HEENT: Normocephalic, Anicteric and Moist Mucous Membranes
Respiratory: Clear and Non Labored Respirations
Cardiac: S1/S2, Regular Rhythm, Murmur and Other (+ Click of mechanical valve)
Musculoskeletal: No Clubbing, No Cyanosis and No Edema
Skin: Warm and Dry
Neuro: AO x 3 and Nonfocal/Grossly Intact
Psych: Calm
Labs
Lab Results
WBC 9.2 10^3/uL (4.8-10.8) 11/20/23 04:36
RBC 3.06 10^6/uL (4.20-5.40) L 11/20/23 04:36
Hgb 9.2 g/dL (12.0-16.0) L 11/20/23 04:36
Hct 26.9 % (37.0-47.0) L 11/20/23 04:36
MCV 87.9 fL (81.0-99.0) 11/20/23 04:36
MCH 30.1 pg (27.0-31.0) 11/20/23 04:36
MCHC 34.2 g/dL (33.0-37.0) 11/20/23 04:36
RDW 15.9 % (11.5-14.5) H 11/20/23 04:36
Plt Count 394 10^3/uL (130-400) 11/20/23 04:36
MPV 10.2 fL (7.4-10.4) 11/20/23 04:36
Abs Immat Gran (auto) 0.0 10^3/uL (0-0.05) 11/20/23 04:36
Absolute Neuts (auto) 6.1 10^3/uL (1.4-6.5) 11/20/23 04:36
Absolute Lymphs (auto) 1.1 10^3/uL (1.2-3.4) L 11/20/23 04:36
Absolute Monos (auto) 1.0 10^3/uL (0.1-0.6) H 11/20/23 04:36
Absolute Eos (auto) 0.8 10^3/uL (0-0.7) H 11/20/23 04:36
Absolute Basos (auto) 0.2 10^3/uL (0-0.2) 11/20/23 04:36
Immature Gran % 0.4 % (0-0.5) 11/20/23 04:36
Neutrophils % 66.4 % (42.2-75.2) 11/20/23 04:36
Lymphocytes % 12.1 % (20.5-51.1) L 11/20/23 04:36
Monocytes % 10.5 % (1.7-9.3) H 11/20/23 04:36
Eosinophils % 8.5 % (0-6) H 11/20/23 04:36
Basophils % 2.1 % (0-2) H 11/20/23 04:36
Creatinine 0.8 mg/dL (0.6-1.0) 11/20/23 04:36
Vital Signs
Vital Signs
Temp Pulse Resp BP Pulse Ox
98.6 F 94 16 182/64 98
11/20/23 07:24 11/20/23 07:24 11/20/23 07:24 11/20/23 07:24 11/20/23 07:24
[2023-11-20 11:00] VITALS: BP 171/59
[2023-11-20 11:08] LABS: APTT 72.3 Sec (23.4-35.0)
--- NOTE | 2023-11-20 11:18 | W.PN.CARDCBS ---
Addendum entered and electronically signed by Mikey Resendez MD 11/20/23 14:53:
I saw and examined the patient.
The Bag Liner's note was reviewed and I agree with the note.
Comment:
GEN: No distress, awake, Ox3
HEENT: supple, anicteric, mmm
LUNGS: CTA, no wheezes/rales
CV: Reg, S1/S2, / syst LSB, + click
ABD: soft, BS+, NT/ND
EXT: No edema
NEURO: Gross non-focal
SKIN: No rash
Plan:
Continue heparin bridge. INR at 1.6. Continue Coumadin.
Echo with stable mechanical aortic valve.
Await hemolysis panel including haptoglobin. Appreciate hematology input.
Eventually needs capsule study per GI. Hemoglobin stable at 9.2
Original Note:
Today's Communication / Plan
-
Continue to follow INR
Coumadin 4mg tonight
Continue heparin for now
Impression / Plan
-
PCP: Dr. Haynes
Cardiology: Dr. Michelle Justice
Oncology: Dr. Khan at [facility]/Onc
Impression:
Presented with chest pain, shortness of breath
Melena
Acute GIB with severe symptomatic anemia
Supratherapeutic INR
Non-ME troponin elevation, troponin 0.141
Recent admission 11/10/2023 to 11/11/2023 for GIB
GIB w/ transfusion 08/2022 after starting Ribociclib
Right MCA stroke with M2 occlusion in setting of subtherapeutic INR while off Coumadin 07/15/22
patient bridged with Lovenox prior to colonoscopy 07/10/21, but no Lovenox bridge post-colonoscopy
Mechanical AVR pediatric size 2006
Chronic warfarin OAC
Mitral regurgitation with mitral stenosis
Tricuspid regurgitation with pulmonary hypertension
h/o CVA 2005; recurrent right MCA stroke secondary to M2 occlusion in setting of subtherapeutic INR 06/2022
h/o Hodgkin's lymphoma treated with radiation to left neck and pelvis 1973
h/o breast CA 2017 treated with B/L mastectomy, patient refused chemotherapy and radiation, but eventually agreeable to Tamoxifen
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
Recurrence of breast cancer 2021 - did not tolerate Ibrance or Ribociclib
HTN
Hypothyroidism
Lexiscan nuclear stress test 11/28/2021:�Positive EKG.� Perfusion imaging with small inferoseptal suggestive of significant bowel artifact vs ischemia
Echo 08/31/19: EF 55-60%, grade II diastolic dysfunction, moderate MR, mechanical aortic valve mean gradient 8 mmHg
Echo 07/16/21:�EF 70-75%, mild to mod MS with mean gradient 10 mmHg, [place] AVR mean gradient 13, PAP 43 mmHg
Echo 08/26/2022: Hyperdynamic LV.� EF 70 to 75%.� Mild to moderate MS peak/mean gradient 20/7 mmHg.� Moderate to severe MR.� Well-seated mechanical AVR with peak/mean gradient 11/6 mmHg without regurgitation.� Moderate to severe TR.� Moderate
pulmonary hypertension with PAP 50 to 55 mmHg.
Echo 02/10/2023: EF 60 to 65%.� Moderate mitral stenosis mean gradient 11 with severe MR.� Well-seated mechanical AVR with peak/mean gradient 15/8 mmHg, mild to moderate TR, mild pulmonary hypertension with PAP 45 to 48 mmHg.
Echo 11/19/2023: EF 70-75%, moderate MS with peak/mean gradients 15/8 mmHg, moderate MR, mechanical prosthetic AVR with peak/mean gradients 16/9 mmHg, trace AR, moderate TR, estimated PAP 30-35 mmHg
Plan:
-Presented with severe symptomatic anemia due to GI bleed.� Hemoglobin 5.0 with INR 5.5 on arrival.
-s/p 5 units PRBCs this admission.� Hgb in AM 2/1 stable overall at 9.2
-GI following and EGD and colonoscopy were unremarkable. Plan is to consider OP capsule study.
-Given history of CVA in the setting of subtherapeutic INR with holding Coumadin in the past, continue to bridge with IV heparin as long as INR <2.5. INR 1.65 11/20.
-Continue Heparin drip and warfarin. Give an additional 4mg warfarin tonight.
-May benefit from H&H when she gets INR checked at outpt to monitor Hgb closely
-Abnormal troponin, peaked at 0.141. Chest pain noted with ST changes on EKG in the setting of severe anemia.� Following transfusion and improvement in hemoglobin, her symptoms have resolved and EKG changes have improved. May consider eventual
stress testing as OP.
-Echo 11/19 with preserved EF and moderate MS with moderate MR. Continue to follow.
-Continue Toprol and lisinopril.
-Fulvestrant remains on hold per GI recommendations.
-Continue IV PPI.
-Heme consulted by primary service.
HPI: Chanda is a 68-year-old female with past medical history of recurrent GI bleeding, CVA, AVR, Hodgkin lymphoma, breast cancer, hypertension, and hypothyroidism who presented to ER with symptomatic anemia and GI bleed. She was recently
admitted at 11/10/2023 to 11/11/2023 with same symptoms and was recommended GI evaluation, however she declined. After returning home, she had ongoing dark, black stool and became progressively symptomatic with this with chest pain and shortness
of breath. She returned to ER 11/13/2023 for reevaluation and was found to have hemoglobin of 5.0. Her INR was elevated at 5.54. Her Coumadin was held and she was given 3 units PRBCs. Hemoglobin improved this AM to 10.2. Initial EKG in the
setting of severe anemia had significant ST changes that have improved following transfusion. She also was noted to have elevated troponin with initial troponin negative, trending upwards to 0.130. Cardiology consulted for evaluation. She reports
she is feeling better this morning after receiving the units of blood. She has already been evaluated by GI and is agreeable to workup/EGD this admission. Chest pain and shortness of breath are resolved.
Progress Note - Lining Stamper
Subjective
Date of Service: November 20, 2023
Feeling well. No chest pain.
Objective
Labs:
11/20/23 04:36
11/20/23 04:36
Labs
Hgb 9.2 g/dL (12.0-16.0) L 11/20/23 04:36
Hct 26.9 % (37.0-47.0) L 11/20/23 04:36
Plt Count 394 10^3/uL (130-400) 11/20/23 04:36
PT 19.7 Sec (11.4-14.6) H 11/20/23 04:36
INR 1.65 11/20/23 04:36
APTT 72.3 Sec (23.4-35.0) H 11/20/23 10:40
Sodium 134 mmol/L (135-145) L 11/20/23 04:36
Potassium 4.1 mmol/L (3.5-5.1) 11/20/23 04:36
BUN 15 mg/dl (7-17) 11/20/23 04:36
Creatinine 0.8 mg/dL (0.6-1.0) 11/20/23 04:36
Glucose 71 mg/dl (70-99) 11/20/23 04:36
Vital Signs and I&O:
Vital Signs
Temp Pulse Resp BP Pulse Ox
98.6 F 94 16 182/64 98
11/20/23 07:24 11/20/23 07:24 11/20/23 07:24 11/20/23 07:24 11/20/23 07:24
Vital Signs
Temp Pulse Resp BP Pulse Ox
98.6 F 94 16 182/64 98
11/20/23 07:24 11/20/23 07:24 11/20/23 07:24 11/20/23 07:24 11/20/23 07:24
Intake & Output
11/18/23 11/19/23 11/20/23 11/21/23
06:59 06:59 06:59 06:59
Intake Total 720 / 720 1929 96 / 960
Balance 720 / 720 1929 96 / 960
Physical Exam
Physical Exam
GEN: No distress, awake, alert, oriented x3
HEENT: supple, anicteric, mmm
LUNGS: CTA, no wheezes/rales
CV: Reg, S1/S2, 2/6 apical murmur, audible click of mechanical valve
ABD: soft, BS+, NT/ND
EXT: No edema, clubbing or cyanosis
NEURO: Gross non-focal
SKIN: No rash, warm, dry, pink
--- NOTE | 2023-11-20 11:58 | CON.ONC ---
Impression
Impression
Acute blood loss with negative upper and lower endoscopy reticulocyte count approaching 6 suggests adequate marrow response
Suspect bleeding source small bowel given history of aortic stenosis likely AVM
Mechanical valve with appropriate anticoagulation
History of NHL post XRT
History of breast carcinoma on palbociclib/AI
Plan
Plan
Evaluate substrate
Replete iron as needed
Rule out hemolysis
Suggest evaluation of small bowel for AVMs
Patient History
History of Present Illness
Chanda Osborn is a 68 year old female who presented to the ER via EMS 11/13/23 with reports of GI bleeding, hypotension, syncope, and vague chest pain. She was seen in the ER on 11/10/23 as well due to acute anemia with Hgb of 5.9. It was
recommended by GI at the time that she undergo EGD however she declinedthe procedure due to concerns of the risks of holding anticoagulation. She has history of a mechanical aortic valve on chronic Coumadin as well as multiple CVAs. She had taken
something at home for constipation and subsequently experienced a very large black tarry bowel movement.
Patient Medication
Medication Instructions Recorded Confirmed Last Taken Type
fulvestrant 250 mg/5 mL 500 mg IM MONTHLY Cancer 07/16/21 11/14/23 10/21/23 History
intramuscular syringe
levothyroxine 88 mcg tablet 88 mcg PO DAILY AT 0700 Thyroid 07/16/21 11/14/23 11/13/23 History
omeprazole 10 mg capsule,delayed 20 mg PO DAILY Gastrointestinal 08/25/22 11/14/23 11/12/23 History
release issue
metoprolol succinate 25 mg 37.5 mg PO QPM Blood Pressure 10/27/23 11/14/23 11/12/23 History
tablet,extended release 24 hr
lisinopril 10 mg tablet 10 mg PO QPM Blood Pressure 10/28/23 11/14/23 11/12/23 History
celecoxib 100 mg capsule 100 mg PO BIDPRN PRN nerve PAIN 11/10/23 11/14/23 1 Month Ago History
~10/10/23
lorazepam 0.5 mg tablet 0.5 mg PO HSPRN PRN ANXIETY/ sleep 11/10/23 11/14/23 1 Month Ago History
~10/10/23
warfarin 2.5 mg tablet 2.5 mg PO QPM Blood Clot 11/10/23 11/14/23 11/12/23 History
Prevention/Tx
bisacodyl 10 mg rectal suppository 10 mg [place] DAILYPRN PRN constipation 11/13/23 11/14/23 Unknown History
(Dulcolax (bisacodyl))
magnesium citrate 150 ml PO BIDPRN PRN constipation 11/13/23 11/14/23 11/12/23 History
Active Medications
Generic Name Dose Route Start Last Admin
Trade Name Freq PRN Reason Stop Dose Admin
Acetaminophen 650 mg 11/13/23 21:29
Acetaminophen 325 Mg Tablet PO 12/11/23 21:28
Q4HPRN PRN
Mild Pain / Temp > 101
Hydralazine HCl 5 mg 11/18/23 21:53 11/18/23 23:25
Hydralazine 20 Mg/Ml Vial IV 12/16/23 21:52 5 mg
Q4HPRN PRN Administration
sbp>170
Heparin Sodium 25,000 units in 250 mls @ 0 mls/hr 11/19/23 11:30 11/20/23 10:08
Heparin 26926 Units/250 Ml IV 250 mls
PER PROTOCOL PIETER Administration
Protocol
Per Protocol
Levothyroxine Sodium 88 mcg 11/14/23 07:00 11/20/23 06:04
Levothyroxine 88 Mcg Tablet PO 12/12/23 06:59 88 mcg
DAILY AT 0700 PIETER Administration
Lisinopril 10 mg 11/15/23 15:00 11/20/23 07:15
Lisinopril 10 Mg Tablet PO 12/13/23 14:59 10 mg
DAILY PIETER Administration
Lorazepam 0.5 mg 11/14/23 21:05 11/19/23 22:25
Lorazepam 0.5 Mg Tablet PO 12/12/23 21:04 0.5 mg
HSPRN PRN Administration
anxiety/sleep
Metoprolol Succinate 37.5 mg 11/14/23 18:00 11/19/23 17:12
Metoprolol 25 Mg Extended Release Tablet PO 12/12/23 17:59 37.5 mg
QPM PIETER Administration
Ondansetron HCl 4 mg 11/13/23 21:29
Ondansetron 4 Mg/2 Ml Vial IV 12/11/23 21:28
Q6HPRN PRN
nausea and vomiting
Pantoprazole Sodium 40 mg 11/19/23 08:00 11/20/23 07:15
Pantoprazole 40 Mg Delayed Release Tablet PO 12/17/23 07:59 40 mg
DAILY PIETER Administration
Sodium Chloride 0 flush 11/13/23 22:00 11/16/23 08:31
Sodium Chloride 0.9% (Flush) Syringe IV 12/11/23 21:59 2 flush
PER PROTOCOL PIETER Administration
Warfarin Sodium 4 mg 11/20/23 18:00
Warfarin 4 Mg Tablet PO 11/25/23 17:59
QPM PIETER
Physical Exam
Labs
Lab Results
WBC 9.2 10^3/uL (4.8-10.8) 11/20/23 04:36
RBC 3.06 10^6/uL (4.20-5.40) L 11/20/23 04:36
Hgb 9.2 g/dL (12.0-16.0) L 11/20/23 04:36
Hct 26.9 % (37.0-47.0) L 11/20/23 04:36
MCV 87.9 fL (81.0-99.0) 11/20/23 04:36
MCH 30.1 pg (27.0-31.0) 11/20/23 04:36
MCHC 34.2 g/dL (33.0-37.0) 11/20/23 04:36
RDW 15.9 % (11.5-14.5) H 11/20/23 04:36
Plt Count 394 10^3/uL (130-400) 11/20/23 04:36
MPV 10.2 fL (7.4-10.4) 11/20/23 04:36
Abs Immat Gran (auto) 0.0 10^3/uL (0-0.05) 11/20/23 04:36
Absolute Neuts (auto) 6.1 10^3/uL (1.4-6.5) 11/20/23 04:36
Absolute Lymphs (auto) 1.1 10^3/uL (1.2-3.4) L 11/20/23 04:36
Absolute Monos (auto) 1.0 10^3/uL (0.1-0.6) H 11/20/23 04:36
Absolute Eos (auto) 0.8 10^3/uL (0-0.7) H 11/20/23 04:36
Absolute Basos (auto) 0.2 10^3/uL (0-0.2) 11/20/23 04:36
Immature Gran % 0.4 % (0-0.5) 11/20/23 04:36
Neutrophils % 66.4 % (42.2-75.2) 11/20/23 04:36
Lymphocytes % 12.1 % (20.5-51.1) L 11/20/23 04:36
Monocytes % 10.5 % (1.7-9.3) H 11/20/23 04:36
Eosinophils % 8.5 % (0-6) H 11/20/23 04:36
Basophils % 2.1 % (0-2) H 11/20/23 04:36
Creatinine 0.8 mg/dL (0.6-1.0) 11/20/23 04:36
Vital Signs
Vital Signs
Temp Pulse Resp BP Pulse Ox
98.6 F 94 16 182/64 98
11/20/23 07:24 11/20/23 07:24 11/20/23 07:24 11/20/23 07:24 11/20/23 07:24
--- NOTE | 2023-11-20 13:12 | W.PN.GI.CBS2 ---
Addendum entered and electronically signed by Vandana Amos MD 11/20/23 19:37:
I saw and examined the patient.
The ACCESS SERVICES LIBRARIAN or PA's note was reviewed and I agree with the note.
Comment: Patient with brown stool, no further bleeding
Plan is for outpatient capsule study, she is already set up for 01 December for small bowel capsule.
Until then, continue PPI.
Monitor stool and if there is any black stool or bright blood, suggested she needs to come to the emergency room.
She is going to have weekly hemoglobin check with Dr. Amaral's office.
Will follow-up on the capsule study
Will sign off, please call back if needed
Original Note:
Today's Communication / Plan
-
s/p EGD/colon as noted
for OP capsule next reviewed with Gianna for setting up sooner than later with recurrent bleeding issues
remains on heparin gtt transition to coumadin
change to regular diet with dietary issues
trend hbg, transfuse as needed
heme eval -- pt spoke with Dr. Amaral await input
stools green/brown with prep
Monitor stools and for signs of active bleeding
-PPI BID
-Continue to hold Coumadin
-Avoid NSAID's
multiple question with diet, capsule etc answered
will sign off call with questions
Assessment / Plan
-
The patient is a 68-year-old female with a past medical history significant for valvular heart disease with history of [facility] aortic valve replacement on chronic Coumadin, mitral valve stenosis with severe MR, CVA, Hodgkin's lymphoma with history
of radiation, history of breast cancer with mastectomy, hypothyroidism, hypertension, GERD, gastroparesis, who presented to the emergency room with complaints of shortness of breath, chest pain, and syncope. We are being asked to evaluate for
symptomatic anemia and concern for upper GI bleed. She had recent admission for melena and anemia with a hemoglobin of 5.9. Suspected upper GI bleed with significant valvular disease and history of use of Celebrex (AVMs versus peptic ulcer
disease). She was also on chronic fulvestrant which can cause chronic anemia. She declined EGD at the time of her last hospitalization due to concerns for stroke being off her Coumadin. She presents again with recurrent symptomatic anemia.
Hemoglobin 5.0 on admission with transfusion given.
11/19 colonoscopy � � - The examined portion of the ileum was normal- Tortuous colon. internal hemorrhoids no specimen collected
11/18 EGD - No gross lesions in the entire esophagus - Z-line irregular, 33 cm from the incisors. Biopsied. small HH, no lesions in stomach, normal duodenum
Problem list:
-Recurrent symptomatic macrocytic anemia with melena
-Chronic AC on Coumadin for mechanical AVR
-History of intermittent NSAID use
-breast CA with recurrence on chronic Fulvestrant
-chronic constipation
-gastroparesis
-Dysgeusia
-CVA x 2 with last while off anticoagulation for GI procedure
Other pertinent medical history:
-HTN
-hodgkin's lymphoma with distant hx radiation, splenectomy
-mitral stenosis with severe MR
-hypothyroidism, status post thyroidectomy
-GERD
Recommendations:
s/p EGD/colon as noted
for OP capsule next reviewed with Gianna for setting up sooner than later with recurrent bleeding issues
remains on heparin gtt transition to coumadin
change to regular diet with dietary issues
trend hbg, transfuse as needed
heme eval -- pt spoke with Dr. Amaral await input
stools green/brown with prep
Monitor stools and for signs of active bleeding
-PPI BID
-Continue to hold Coumadin
-Avoid NSAID's
multiple question with diet, capsule etc answered
will sign off call with questions
Subjective
Subjective
Date of Service: November 20, 2023
feeling well multiple questions about next step-- stools green/brown with prep
Objective
Data Reviewed
Laboratory Data:
Laboratory Results
11/20/23 04:36
11/20/23 04:36
Laboratory Results
PT 19.7 Sec (11.4-14.6) H 11/20/23 04:36
INR 1.65 11/20/23 04:36
APTT 72.3 Sec (23.4-35.0) H 11/20/23 10:40
Magnesium 2.6 mg/dl (1.6-2.3) H 11/13/23 17:36
Total Bilirubin 0.7 mg/dl (0.2-1.3) 11/20/23 04:36
AST 32 U/L (14-36) 11/20/23 04:36
ALT 14 U/L (0-35) 11/20/23 04:36
Alkaline Phosphatase 70 U/L (38-126) 11/20/23 04:36
Vital Signs and I&O:
Vital Signs
Temp Pulse Resp BP Pulse Ox
98.1 F 103 17 171/59 96
11/20/23 11:00 11/20/23 11:00 11/20/23 11:00 11/20/23 11:00 11/20/23 11:00
I&O
11/19/23 11/20/23 11/21/23
06:59 06:59 06:59
Intake Total 1929 960 / 960
Balance 1929 960 / 960
Physical Exam
Physical Exam
HEENT: Anicteric and Moist mucous membranes
Cardiology: Normal Sinus Rhythm
Pulmonary: Clear
GI: Soft
Neuro: Non Focal
[2023-11-20] MEDS: APRESOLINE 5 MG IV (15:18)
[2023-11-20 15:33] VITALS: BP 171/80
[2023-11-20] MEDS: TOPROL XL 50 MG PO (16:09)
[2023-11-20] MEDS: ATIVAN 0.5 MG PO ×2 (16:10→22:47)
[2023-11-20] MEDS: COUMADIN 4 MG PO (16:10)
--- NOTE | 2023-11-20 17:15 | PTCARENOTE ---
2/- Patient is highly anxious, tearful, racing thoughts about her care. Patient has been having sustained high blood pressures and tachycardia today, as discussed with Physician, partially due to her anxiety. Therapeutic conversation given with
education on relaxation techniques and mindfulness. Education on her care, questions for the physician and discharge planning also discussed. Patient verbalized understanding but is still anxious. Ativan PRN ordered for Anxiety, administered as
ordered.
[2023-11-20 17:24] LABS: APTT 121.4 Sec (23.4-35.0)
[2023-11-20 19:32] VITALS: BP 116/42
[2023-11-20 23:08] VITALS: BP 133/48
[2023-11-20 23:20] LABS: APTT 130.2 Sec (23.4-35.0)
[2023-11-21 03:28] VITALS: BP 118/48
[2023-11-21 05:19] LABS: % Basophils 2.3 % (0-2); % Eosinophils 9.9 % (0-6); % Immature Granulocytes 0.4 % (0-0.5); % Lymphocytes 11.7 % (20.5-51.1); % Monocytes 10.8 % (1.7-9.3); % Neutrophils 64.9 % (42.2-75.2); Absolute Basophils 0.2 10^3/uL (0-0.2); Absolute Eosinophils 0.8 10^3/uL (0-0.7); Absolute Monocytes 0.9 10^3/uL (0.1-0.6); Absolute Neutrophils 5.3 10^3/uL (1.4-6.5); Hematocrit 27.7 % (37.0-47.0); Hemoglobin 9.1 g/dL (12.0-16.0); Mean Corp Hgb Conc. 32.9 g/dL (33.0-37.0); Mean Corpuscular Hgb 29.4 pg (27.0-31.0); Mean Corpuscular Volume 89.4 fL (81.0-99.0); Mean Platelet Volume 9.5 fL (7.4-10.4); Nucleated Red Blood Cells % 0 %; Platelet Count 400 10^3/uL (130-400); White Blood Cell Count 8.2 10^3/uL (4.8-10.8)
[2023-11-21 05:28] LABS: INR 2.67; PT 28.8 Sec (11.4-14.6)
[2023-11-21 05:30] LABS: APTT 124.5 Sec (23.4-35.0)
[2023-11-21 05:43] LABS: Blood Urea Nitrogen 18 mg/dl (7-17); Calcium 8.7 mg/dl (8.4-10.2); Carbon Dioxide 18 mmol/L (22-30); Chloride 109 mmol/L (98-107); Estimated Creatinine Clearance 36 ml/min; Glucose 72 mg/dl (70-99); Sodium 137 mmol/L (135-145); eGFR > 60.00
[2023-11-21] MEDS: SYNTHROID 88 MCG PO (06:11)
[2023-11-21 07:00] VITALS: BP 167/61
[2023-11-21] MEDS: PROTONIX 40 MG PO (08:00)
[2023-11-21] MEDS: ZESTRIL 10 MG PO (08:01)
[2023-11-21] MEDS: ATIVAN 0.5 MG PO (08:13)
--- NOTE | 2023-11-21 10:10 | CM ---
Patient seen bedside, reports no new concerns. CM reviewed IMM with patient, signed, placed in patients chart. CM will continue to follow for discharge planning needs.
Plan; home no needs.
--- NOTE | 2023-11-21 10:15 | W.PN.HOSP.TC ---
Today's Communication/Plan
-
INR therapeutic
dc home
OP capsule endoscopy
Assessment / Plan
Assessment / Plan
A/P:� Patient is a 68y F with PMH significant for mechanical AVR, chronic anticoagulation and breast cancer on fulvestrant who presents to ED complaining of chest pain, SOB and syncope this AM.
Suspected GI Bleed likely SB AVMs worsened in setting of coumadin
Symptomatic acute Blood Loss Anemia secondary to the above
�-Continuing ongoing blood loss but hemodynamically stable. Hgb at 9.1 Status post 5 units of PRBC so far
�- Follow H&H for any changes.
�- GI input appreciated
�- ppi
- s/p EGD with No gross lesions were noted in the entire examined stomach. No evidence of dark or fresh blood noted in the stomach .Normal examined duodenum.� Bile noted in the duodenum.
- s/p Colonoscopy unremarkable. Patient will need outpatient video capsule endoscopy.
- retic count mild elevated as expected. LDH not significantly elevated. T.bili wnl. doubt hemolysis.
- INR therapeutic at 2.7. DC hep gtt. dw with cardiology and agree with plan to dc home.
- Appreciate Heme recs. Pt to transfer care to [facility]
Chest Pain resolved
SOB resolved
Syncope
�- Likely secondary to blood loss anemia as noted above.
�- Troponin remains indeterminate range suspect secondary to non-LA troponin elevation
�- Cardiology evaluation noted and appreciated
�- Replace PRBCs as noted above and follow for clinical improvement.
Mechanical AVR
Chronic Coumadin Coagulopathy
�- Hold Coumadin for now as noted above.
�- Initial INR was 5.54
�- Last dose of Coumadin was 11/12 evening - 2.5mg.
�- Follow INR daily-today 2.7
�- s/p hep gtt
�- coumadin. Cardiology to arrange INR check next week.
�- Cardiology input re: anticoagulation is appreciated.
Benign Hypertension-elevated
�- cw lisinopril
�- Continue metoprolol with holding parameters. TOprol dose increased to 50mg qhs.
Hypothyroidism
�- Stable.� Continue T4 replacement.
Breast Cancer
�- Maintained on fulvestrant.
�- Receives one monthly.� Next dose is due Friday.
�- Follow-up with Oncology as an outpatient.
DVT Prophylaxis:� coumadin
Code Status:� DNR
More than 30 minutes spent in discharge including
Final examination of the patient
Summarizing hospital stay
Instructions for continuing care to all relevant caregivers
Preparation of discharge records, prescriptions, and referral forms
Total time spent (in minutes): 50
Anticipated Discharge: Today
Subjective/Interval History
-
Date of Service: November 21, 2023
Feeling better.
tolerating diet
INR therapeutic
Objective Data
-
Labs:
Laboratory Results
11/20/23 11/21/23 11/21/23
23:01 05:07 12:10
WBC 8.2
Hgb 9.1 L
Hct 27.7 L
Plt Count 400
PT 28.8 H
INR 2.67
APTT 130.2 H 124.5 H Pending
Sodium 137
Potassium 4.0
Chloride 109 H
Carbon Dioxide 18 L
BUN 18 H
Creatinine 0.9
Glucose 72
Calcium 8.7
Vital Signs:
Vital Signs
Temp Pulse Resp BP Pulse Ox
98.1 F 81 18 167/61 97
11/21/23 07:00 11/21/23 07:00 11/21/23 07:00 11/21/23 07:00 11/21/23 08:00
I&O
11/20/23 11/21/23 11/22/23
06:59 06:59 06:59
Intake Total 960 / 960 660 / 660
Balance 960 / 960 660 / 660
Physical Exam
-
General: No Apparent Distress and Cachectic
HEENT: Moist Mucous Membranes
Respiratory: Clear to Auscultation and Non Labored Respirations
Cardiac: Regular Rhythm, S1/S2 and Murmur
GI: Soft, Nontender, Nondistended and Normal Bowel Sounds
Musculoskeletal: No Edema
Skin: Warm
Neuro: Awake, Alert, Oriented, AO x 3 and No Motor Deficits
Psych: Calm
--- NOTE | 2023-11-21 11:13 | W.DCSUMMARY ---
Discharge Summary
Discharge Data
Date of Admission: 11/13/23
Date of Discharge: 11/21/23
-
Pending Results: No
Hospital Course
Patient is a 68y F with PMH significant for mechanical AVR, chronic anticoagulation with coumadin, htn, and breast cancer on fulvestrant who presents to ED complaining of chest pain, SOB and syncope on presentation. Patient hemoglobin was
trended and she required 5 units of PRBC throughout hospitalization. Patient INR was significantly elevated on admission at 5.54. With history of mechanical heart valve replacement was not added. Patient underwent endoscopy with No gross lesions
were noted in the entire examined stomach. No evidence of dark or fresh blood noted in the stomach .Normal examined duodenum.� Bile noted in the duodenum. s/p Colonoscopy unremarkable.� Patient will need outpatient video capsule endoscopy. Once
patient INR was less than 2.5 she was started on heparin drip. Post colonoscopy patient was started on Coumadin and INR was 2.70 of discharge. Discussed with cardiology okay for discharge with outpatient INR check. Patient would probably require
hemoglobin check with INR as outpatient. Oncology was also consulted. Oncology not concern for hemolysis. Patient blood pressure elevated metoprolol was increased to 50 mg nightly. Patient to undergo outpatient capsule endoscopy.
Discharge Plan
-
Patient Disposition: Home (Routine Discharge)
Discharge Diagnosis/Procedures: Gastrointestinal bleeding likely secondary to small bowel AVMs in the setting of Coumadin coagulopathy
Symptomatic acute anemia blood loss
Blood cell transfusion
Chest pain
Syncope
Supratherapeutic INR
Condition: Fair
Diet: As tolerated and Regular
Activity: As tolerated
Driving Restrictions: As prior to admission
Blood Work: CBC and INR check with primary doctor early next week
Referrals:
Leoncio Amaral DO [Active] - None
Melanie Haynes MD [Family Provider] - in less than 1 week
Prescriptions:
New
metoprolol succinate 50 mg Tablet Extended Release 24 Hr
50 mg PO QPM 30 Days Qty: 30 0RF
pantoprazole 40 mg Tablet,Delayed Release (Dr/Ec)
40 mg PO DAILY 30 Days Qty: 30 0RF
Continued
levothyroxine 88 MCG tablet
88 mcg PO DAILY AT 0700
Patient Comments:
11/13/23--MUST BE BRAND NAME SYNTHROID Pt advised to have family/spouse bring in her Synthroid from home.
fulvestrant 250 MG/5 ML syringe
500 mg IM MONTHLY
Hold Instructions: Resume on 11/18/23. till seen by oncology
omeprazole 10 mg Capsule,Delayed Release(Dr/Ec)
20 mg PO DAILY
Patient Comments:
11/13/2023: MUST BE BRAND NAME PRILOSEC OTC
lisinopril 10 mg tablet
10 mg PO QPM
warfarin 2.5 mg Tablet
2.5 mg PO QPM
lorazepam 0.5 mg tablet
0.5 mg PO Q6HPRN PRN (Reason: ANXIETY/ sleep)
Rx Instructions:
0.5 mg orally as needed for nausea/anxiety
bisacodyl [Dulcolax (bisacodyl)] 10 mg Suppository
10 mg NE DAILYPRN PRN (Reason: constipation)
magnesium citrate Solution
150 ml PO BIDPRN PRN (Reason: constipation)
Discontinued
metoprolol succinate 25 mg tablet extended release 24 hr
37.5 mg PO QPM
celecoxib 100 mg capsule
100 mg PO BIDPRN PRN (Reason: nerve PAIN)
Hold Instructions: Resume on 11/25/23.
Discharge Orders:
Discharge Patient (As Directed); Ordered 11/21/23
Ordered By: Eliud Romano
--- NOTE | 2023-11-21 14:11 | W.PN.CARDCBS ---
Today's Communication / Plan
-
Discontinue IV heparin
Stable cardiology status for discharge
Outpatient follow-up as well as Coumadin dosing when INR follow-up has been arranged
Discussed with patient in detail
Impression / Plan
-
PCP: Dr. Haynes
Cardiology: Dr. Michelle Justice
Oncology: Dr. Khan at [facility]/Onc
Impression:
Presented with chest pain, shortness of breath
Melena
Acute GIB with severe symptomatic anemia
Supratherapeutic INR
Non-SC troponin elevation, troponin 0.141
Recent admission 11/10/2023 to 11/11/2023 for GIB
GIB w/ transfusion 08/2022 after starting Ribociclib
Right MCA stroke with M2 occlusion in setting of subtherapeutic INR while off Coumadin 07/15/22
patient bridged with Lovenox prior to colonoscopy 07/10/21, but no Lovenox bridge post-colonoscopy
Mechanical AVR pediatric size 2006
Chronic warfarin OAC
Mitral regurgitation with mitral stenosis
Tricuspid regurgitation with pulmonary hypertension
h/o CVA 2005; recurrent right MCA stroke secondary to M2 occlusion in setting of subtherapeutic INR 06/2022
h/o Hodgkin's lymphoma treated with radiation to left neck and pelvis 1973
h/o breast CA 2018 treated with B/L mastectomy, patient refused chemotherapy and radiation, but eventually agreeable to Tamoxifen
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
Recurrence of breast cancer 2021 - did not tolerate Ibrance or Ribociclib
HTN
Hypothyroidism
Lexiscan nuclear stress test 11/28/2021:�Positive EKG.� Perfusion imaging with small inferoseptal suggestive of significant bowel artifact vs ischemia
Echo 08/31/19: EF 55-60%, grade II diastolic dysfunction, moderate MR, mechanical aortic valve mean gradient 8 mmHg
Echo 07/16/21:�EF 70-75%, mild to mod MS with mean gradient 10 mmHg, [place] AVR mean gradient 13, PAP 43 mmHg
Echo 08/26/2022: Hyperdynamic LV.� EF 70 to 75%.� Mild to moderate MS peak/mean gradient 20/7 mmHg.� Moderate to severe MR.� Well-seated mechanical AVR with peak/mean gradient 11/6 mmHg without regurgitation.� Moderate to severe TR.� Moderate
pulmonary hypertension with PAP 50 to 55 mmHg.
Echo 02/10/2023: EF 60 to 65%.� Moderate mitral stenosis mean gradient 11 with severe MR.� Well-seated mechanical AVR with peak/mean gradient 15/8 mmHg, mild to moderate TR, mild pulmonary hypertension with PAP 45 to 48 mmHg.
Echo 11/19/2023: EF 70-75%, moderate MS with peak/mean gradients 15/8 mmHg, moderate MR, mechanical prosthetic AVR with peak/mean gradients 16/9 mmHg, trace AR, moderate TR, estimated PAP 30-35 mmHg
Plan:
INR 2.7
Discontinue heparin
Okay for discharge from cardiology viewpoint
Coumadin follow-up and dosing has been arranged
Discussed with patient in detail
Abnormal troponin, peaked at 0.141. Chest pain noted with ST changes on EKG in the setting of severe anemia.� Following transfusion and improvement in hemoglobin, her symptoms have resolved and EKG changes have improved. May consider eventual stress
testing as OP.
HPI: Chanda is a 68-year-old female with past medical history of recurrent GI bleeding, CVA, AVR, Hodgkin lymphoma, breast cancer, hypertension, and hypothyroidism who presented to ER with symptomatic anemia and GI bleed. She was recently
admitted at 11/10/2023 to 11/11/2023 with same symptoms and was recommended GI evaluation, however she declined. After returning home, she had ongoing dark, black stool and became progressively symptomatic with this with chest pain and shortness
of breath. She returned to ER 11/13/2023 for reevaluation and was found to have hemoglobin of 5.0. Her INR was elevated at 5.54. Her Coumadin was held and she was given 3 units PRBCs. Hemoglobin improved this AM to 10.2. Initial EKG in the
setting of severe anemia had significant ST changes that have improved following transfusion. She also was noted to have elevated troponin with initial troponin negative, trending upwards to 0.130. Cardiology consulted for evaluation. She reports
she is feeling better this morning after receiving the units of blood. She has already been evaluated by GI and is agreeable to workup/EGD this admission. Chest pain and shortness of breath are resolved.
Progress Note - [employer]er
Subjective
Date of Service: November 21, 2023
No complaints
Objective
Labs:
11/21/23 05:07
11/21/23 05:07
Labs
Hgb 9.1 g/dL (12.0-16.0) L 11/21/23 05:07
Hct 27.7 % (37.0-47.0) L 11/21/23 05:07
Plt Count 400 10^3/uL (130-400) 11/21/23 05:07
PT 28.8 Sec (11.4-14.6) H 11/21/23 05:07
INR 2.67 11/21/23 05:07
APTT 124.5 Sec (23.4-35.0) H 11/21/23 05:07
Sodium 137 mmol/L (135-145) 11/21/23 05:07
Potassium 4.0 mmol/L (3.5-5.1) 11/21/23 05:07
BUN 18 mg/dl (7-17) H 11/21/23 05:07
Creatinine 0.9 mg/dL (0.6-1.0) 11/21/23 05:07
Glucose 72 mg/dl (70-99) 11/21/23 05:07
Vital Signs and I&O:
Vital Signs
Temp Pulse Resp BP Pulse Ox
98.1 F 81 18 167/61 97
11/21/23 07:00 11/21/23 07:00 11/21/23 07:00 11/21/23 07:00 11/21/23 08:00
Vital Signs
Temp Pulse Resp BP Pulse Ox
98.1 F 81 18 167/61 97
11/21/23 07:00 11/21/23 07:00 11/21/23 07:00 11/21/23 07:00 11/21/23 08:00
Intake & Output
11/19/23 11/20/23 11/21/23 11/22/23
06:59 06:59 06:59 06:59
Intake Total 1929 960 / 960 660 / 660
Balance 1929 960 / 960 660 / 660
Physical Exam
Physical Exam
General: Well developed, well nourished in NAD.
[2023-11-22 02:02] LABS: Haptoglobin 44 mg/dL (30-200)
== END 2023-11-21 14:58 | disposition home or self-care (01) | DRG 378 ==
LOC: 4 WEST ACU 21:07
PROVIDERS: Internal Medicine; Internal Medicine Gastroenterology; Nurse Practitioner Family; Physician Assistant; Physician Assistant Medical; ADMITTING PHYSICIAN Hospitalist; ATTENDING PHYSICIAN Hospitalist; CONSULT PHYSICIAN Internal Medicine Cardiovascular Disease; CONSULT PHYSICIAN Internal Medicine Gastroenterology; CONSULT PHYSICIAN Internal Medicine Hematology & Oncology; EMERGENCY PHYSICIAN Emergency Medicine; FAMILY PHYSICIAN Emergency Medicine; OTHER PHYSICIAN Internal Medicine Critical Care Medicine
PROC: 30233N1 Transfusion of Nonautologous Red Blood Cells into Peripheral Vein, Percutaneous Approach (ICD-10-PCS; 2023-11-13)
PROC: 0DB48ZX Excision of Esophagogastric Junction, Via Natural or Artificial Opening Endoscopic, Diagnostic (ICD-10-PCS; 2023-11-18)
PROC: 0DJD8ZZ Inspection of Lower Intestinal Tract, Via Natural or Artificial Opening Endoscopic (ICD-10-PCS; 2023-11-19)
DX: K55.21 Angiodysplasia of colon with hemorrhage (principal); D62 Acute posthemorrhagic anemia; D68.9 Coagulation defect, unspecified; Z68.1 Body mass index [BMI] 19.9 or less, adult; I5A Non-ischemic myocardial injury (non-traumatic); I10 Essential (primary) hypertension; K44.9 Diaphragmatic hernia without obstruction or gangrene; K64.8 Other hemorrhoids; T45.515A Adverse effect of anticoagulants, initial encounter; R63.6 Underweight; C50.919 Malignant neoplasm of unspecified site of unspecified female breast; Q89.9 Congenital malformation, unspecified; Z79.01 Long term (current) use of anticoagulants; Z95.2 Presence of prosthetic heart valve; Z86.73 Personal history of transient ischemic attack (TIA), and cerebral infarction without residual deficits
CPT/HCPCS: 88305; 80048; 80053; 82248; 83010; 83615; 83735; 83880; 84484; 85014; 85018; 85025; 85027; 85045; 85610; 85730; 86850; 86900; 86901; 86920; 93005; 93306; 96374; 96375; 99291; P9016

== ENCOUNTER → 2023-11-24 10:36 | Outpatient (REF) | payer OTHER, SELFPAY ==
[2023-11-24 10:59] LABS: % Basophils 2.4 % (0-2); % Eosinophils 2.7 % (0-6); % Immature Granulocytes 0.3 % (0-0.5); % Lymphocytes 11.1 % (20.5-51.1); % Monocytes 8.8 % (1.7-9.3); % Neutrophils 74.7 % (42.2-75.2); Absolute Basophils 0.2 10^3/uL (0-0.2); Absolute Eosinophils 0.3 10^3/uL (0-0.7); Absolute Monocytes 0.8 10^3/uL (0.1-0.6); Absolute Neutrophils 6.8 10^3/uL (1.4-6.5); Hematocrit 33.1 % (37.0-47.0); Hemoglobin 10.8 g/dL (12.0-16.0); Mean Corp Hgb Conc. 32.6 g/dL (33.0-37.0); Mean Corpuscular Hgb 30.1 pg (27.0-31.0); Mean Corpuscular Volume 92.2 fL (81.0-99.0); Mean Platelet Volume 9.7 fL (7.4-10.4); Nucleated Red Blood Cells % 0 %; Platelet Count 533 10^3/uL (130-400); Red Blood Cell Count 3.59 10^6/uL (4.20-5.40); Red Cell Dist. Width 15.4 % (11.5-14.5); White Blood Cell Count 9.1 10^3/uL (4.8-10.8)
[2023-11-24 11:13] LABS: INR 3.56; PT 35.6 Sec (11.4-14.6)
== END ==
LOC: REG 10:36
PROVIDERS: ATTENDING PHYSICIAN Internal Medicine Cardiovascular Disease; FAMILY PHYSICIAN Emergency Medicine
DX: Z95.2 Presence of prosthetic heart valve (principal); Z79.01 Long term (current) use of anticoagulants
CPT/HCPCS: 36415; 85025; 85610

== ENCOUNTER → 2023-11-28 10:14 | Outpatient (REF) | payer OTHER, SELFPAY ==
[2023-11-28 11:32] LABS: % Basophils 3.1 % (0-2); % Eosinophils 4.4 % (0-6); % Immature Granulocytes 0.3 % (0-0.5); % Lymphocytes 13.1 % (20.5-51.1); % Monocytes 9.8 % (1.7-9.3); % Neutrophils 69.3 % (42.2-75.2); Absolute Basophils 0.2 10^3/uL (0-0.2); Absolute Eosinophils 0.3 10^3/uL (0-0.7); Absolute Monocytes 0.7 10^3/uL (0.1-0.6); Absolute Neutrophils 5.2 10^3/uL (1.4-6.5); Hematocrit 33.4 % (37.0-47.0); Hemoglobin 10.7 g/dL (12.0-16.0); Mean Corpuscular Hgb 29.6 pg (27.0-31.0); Mean Corpuscular Volume 92.5 fL (81.0-99.0); Nucleated Red Blood Cells % 0 %; Platelet Count 570 10^3/uL (130-400); Red Blood Cell Count 3.61 10^6/uL (4.20-5.40); Red Cell Dist. Width 15.1 % (11.5-14.5); White Blood Cell Count 7.4 10^3/uL (4.8-10.8)
[2023-11-28 11:36] LABS: INR 3.35; PT 33.9 Sec (11.4-14.6)
== END ==
LOC: REG 10:14
PROVIDERS: ATTENDING PHYSICIAN Internal Medicine Hematology & Oncology; REFERRING PHYSICIAN Internal Medicine Cardiovascular Disease
DX: C50.012 Malignant neoplasm of nipple and areola, left female breast (principal); Z95.2 Presence of prosthetic heart valve; Z79.01 Long term (current) use of anticoagulants
CPT/HCPCS: 36415; 85025; 85610

== ENCOUNTER → 2023-12-01 08:25 | Outpatient (REF) | payer OTHER, SELFPAY ==
[2023-12-01 09:36] LABS: % Basophils 2.8 % (0-2); % Eosinophils 4.1 % (0-6); % Immature Granulocytes 0.4 % (0-0.5); % Lymphocytes 14.2 % (20.5-51.1); % Monocytes 11.8 % (1.7-9.3); % Neutrophils 66.7 % (42.2-75.2); Absolute Basophils 0.2 10^3/uL (0-0.2); Absolute Eosinophils 0.3 10^3/uL (0-0.7); Absolute Monocytes 0.8 10^3/uL (0.1-0.6); Absolute Neutrophils 4.8 10^3/uL (1.4-6.5); Hematocrit 33.8 % (37.0-47.0); Hemoglobin 10.6 g/dL (12.0-16.0); Mean Corp Hgb Conc. 31.4 g/dL (33.0-37.0); Mean Corpuscular Hgb 28.9 pg (27.0-31.0); Mean Corpuscular Volume 92.1 fL (81.0-99.0); Mean Platelet Volume 10.1 fL (7.4-10.4); Nucleated Red Blood Cells % 0 %; Platelet Count 534 10^3/uL (130-400); Red Blood Cell Count 3.67 10^6/uL (4.20-5.40); Red Cell Dist. Width 14.8 % (11.5-14.5); White Blood Cell Count 7.1 10^3/uL (4.8-10.8)
[2023-12-01 09:50] LABS: INR 2.83; PT 29.7 Sec (11.4-14.6)
== END ==
LOC: HWLAB 08:25
PROVIDERS: ATTENDING PHYSICIAN Internal Medicine Cardiovascular Disease; REFERRING PHYSICIAN Internal Medicine Hematology & Oncology
DX: C50.012 Malignant neoplasm of nipple and areola, left female breast (principal); I34.2 Nonrheumatic mitral (valve) stenosis; Z95.2 Presence of prosthetic heart valve; Z79.01 Long term (current) use of anticoagulants
CPT/HCPCS: 36415; 85025; 85610

== ENCOUNTER → 2023-12-04 07:40 | Outpatient (REF) | payer OTHER, SELFPAY ==
[2023-12-04 09:41] LABS: % Basophils 1.9 % (0-2); % Eosinophils 2.6 % (0-6); % Immature Granulocytes 0.2 % (0-0.5); % Lymphocytes 10.4 % (20.5-51.1); % Monocytes 11.6 % (1.7-9.3); % Neutrophils 73.3 % (42.2-75.2); Absolute Basophils 0.2 10^3/uL (0-0.2); Absolute Eosinophils 0.2 10^3/uL (0-0.7); Absolute Lymphocytes 0.9 10^3/uL (1.2-3.4); Absolute Neutrophils 6.1 10^3/uL (1.4-6.5); Hematocrit 33.9 % (37.0-47.0); Hemoglobin 10.9 g/dL (12.0-16.0); Mean Corp Hgb Conc. 32.2 g/dL (33.0-37.0); Mean Corpuscular Hgb 28.8 pg (27.0-31.0); Mean Corpuscular Volume 89.4 fL (81.0-99.0); Mean Platelet Volume 10.1 fL (7.4-10.4); Nucleated Red Blood Cells % 0 %; Platelet Count 477 10^3/uL (130-400); Red Blood Cell Count 3.79 10^6/uL (4.20-5.40); Red Cell Dist. Width 14.7 % (11.5-14.5); White Blood Cell Count 8.3 10^3/uL (4.8-10.8)
[2023-12-04 09:57] LABS: INR 3.94; PT 39.2 Sec (11.4-14.6)
== END ==
LOC: HWLAB 07:40
PROVIDERS: ATTENDING PHYSICIAN Internal Medicine Cardiovascular Disease; REFERRING PHYSICIAN Internal Medicine Hematology & Oncology
DX: I34.2 Nonrheumatic mitral (valve) stenosis (principal); Z95.2 Presence of prosthetic heart valve; Z79.01 Long term (current) use of anticoagulants; C50.012 Malignant neoplasm of nipple and areola, left female breast
CPT/HCPCS: 36415; 85025; 85610

== ENCOUNTER → 2023-12-08 07:37 | Outpatient (REF) | payer OTHER, SELFPAY ==
[2023-12-08 09:34] LABS: % Basophils 2.6 % (0-2); % Immature Granulocytes 0.3 % (0-0.5); % Lymphocytes 15.7 % (20.5-51.1); % Monocytes 10.2 % (1.7-9.3); % Neutrophils 67.2 % (42.2-75.2); Absolute Basophils 0.2 10^3/uL (0-0.2); Absolute Eosinophils 0.3 10^3/uL (0-0.7); Absolute Lymphocytes 1.1 10^3/uL (1.2-3.4); Absolute Monocytes 0.7 10^3/uL (0.1-0.6); Absolute Neutrophils 4.9 10^3/uL (1.4-6.5); Hematocrit 33.5 % (37.0-47.0); Hemoglobin 10.8 g/dL (12.0-16.0); Mean Corp Hgb Conc. 32.2 g/dL (33.0-37.0); Mean Corpuscular Hgb 28.7 pg (27.0-31.0); Mean Corpuscular Volume 89.1 fL (81.0-99.0); Mean Platelet Volume 10.2 fL (7.4-10.4); Nucleated Red Blood Cells % 0 %; Platelet Count 391 10^3/uL (130-400); Red Blood Cell Count 3.76 10^6/uL (4.20-5.40); Red Cell Dist. Width 14.8 % (11.5-14.5); White Blood Cell Count 7.2 10^3/uL (4.8-10.8)
[2023-12-08 10:06] LABS: INR 3.91; PT 38.4 Sec (11.4-14.6)
== END ==
LOC: HWLAB 07:37
PROVIDERS: ATTENDING PHYSICIAN Internal Medicine Hematology & Oncology; REFERRING PHYSICIAN Internal Medicine Cardiovascular Disease
DX: C50.012 Malignant neoplasm of nipple and areola, left female breast (principal); I34.2 Nonrheumatic mitral (valve) stenosis; Z95.2 Presence of prosthetic heart valve; Z79.01 Long term (current) use of anticoagulants
CPT/HCPCS: 36415; 85025; 85610

== ENCOUNTER → 2023-12-11 07:19 | Outpatient (REF) | payer OTHER, SELFPAY ==
[2023-12-11 09:18] LABS: % Basophils 2.5 % (0-2); % Eosinophils 4.3 % (0-6); % Immature Granulocytes 0.3 % (0-0.5); % Monocytes 10.4 % (1.7-9.3); % Neutrophils 67.5 % (42.2-75.2); Absolute Basophils 0.2 10^3/uL (0-0.2); Absolute Eosinophils 0.3 10^3/uL (0-0.7); Absolute Lymphocytes 1.2 10^3/uL (1.2-3.4); Absolute Monocytes 0.8 10^3/uL (0.1-0.6); Absolute Neutrophils 5.2 10^3/uL (1.4-6.5); Hematocrit 32.5 % (37.0-47.0); Hemoglobin 10.4 g/dL (12.0-16.0); Mean Corpuscular Hgb 28.5 pg (27.0-31.0); Mean Platelet Volume 10.3 fL (7.4-10.4); Nucleated Red Blood Cells % 0 %; Platelet Count 406 10^3/uL (130-400); Red Blood Cell Count 3.65 10^6/uL (4.20-5.40); Red Cell Dist. Width 14.8 % (11.5-14.5); White Blood Cell Count 7.7 10^3/uL (4.8-10.8)
[2023-12-11 09:35] LABS: INR 2.85; PT 30.3 Sec (11.4-14.6)
[2023-12-11 10:05] LABS: Iron 54 ug/dl (37-170)
[2023-12-11 10:15] LABS: Percent Saturation 15 % (20-50); Total Iron Binding Capacity 359 ug/dl (265-497)
== END ==
LOC: HWLAB 07:19
PROVIDERS: ATTENDING PHYSICIAN Nurse Practitioner Adult Health; OTHER PHYSICIAN Internal Medicine Cardiovascular Disease; REFERRING PHYSICIAN Internal Medicine Hematology & Oncology
DX: C50.012 Malignant neoplasm of nipple and areola, left female breast (principal); I34.2 Nonrheumatic mitral (valve) stenosis; Z95.2 Presence of prosthetic heart valve; Z79.01 Long term (current) use of anticoagulants
CPT/HCPCS: 36415; 82728; 83540; 83550; 85025; 85610

== ENCOUNTER → 2023-12-15 07:20 | Outpatient (REF) | payer OTHER, SELFPAY ==
[2023-12-15 08:44] LABS: % Basophils 2.7 % (0-2); % Eosinophils 4.6 % (0-6); % Immature Granulocytes 0.3 % (0-0.5); % Lymphocytes 15.6 % (20.5-51.1); % Monocytes 11.4 % (1.7-9.3); % Neutrophils 65.4 % (42.2-75.2); Absolute Basophils 0.2 10^3/uL (0-0.2); Absolute Eosinophils 0.3 10^3/uL (0-0.7); Absolute Lymphocytes 1.1 10^3/uL (1.2-3.4); Absolute Monocytes 0.8 10^3/uL (0.1-0.6); Absolute Neutrophils 4.4 10^3/uL (1.4-6.5); Hematocrit 31.8 % (37.0-47.0); Hemoglobin 10.2 g/dL (12.0-16.0); Mean Corp Hgb Conc. 32.1 g/dL (33.0-37.0); Mean Corpuscular Volume 90.3 fL (81.0-99.0); Mean Platelet Volume 10.3 fL (7.4-10.4); Nucleated Red Blood Cells % 0 %; Platelet Count 392 10^3/uL (130-400); Red Blood Cell Count 3.52 10^6/uL (4.20-5.40); Red Cell Dist. Width 14.9 % (11.5-14.5); White Blood Cell Count 6.8 10^3/uL (4.8-10.8)
[2023-12-15 09:32] LABS: INR 3.49; PT 35.1 Sec (11.4-14.6)
== END ==
LOC: HWLAB 07:20
PROVIDERS: ATTENDING PHYSICIAN Internal Medicine Hematology & Oncology; REFERRING PHYSICIAN Internal Medicine Cardiovascular Disease
DX: I34.2 Nonrheumatic mitral (valve) stenosis (principal); Z95.2 Presence of prosthetic heart valve; Z79.01 Long term (current) use of anticoagulants; C50.012 Malignant neoplasm of nipple and areola, left female breast
CPT/HCPCS: 36415; 85025; 85610

== ENCOUNTER → 2023-12-18 08:04 | Outpatient (REF) | payer OTHER, SELFPAY ==
[2023-12-18 09:15] LABS: % Basophils 2.3 % (0-2); % Eosinophils 2.7 % (0-6); % Immature Granulocytes 0.2 % (0-0.5); % Lymphocytes 9.3 % (20.5-51.1); % Monocytes 9.5 % (1.7-9.3); Absolute Basophils 0.3 10^3/uL (0-0.2); Absolute Eosinophils 0.3 10^3/uL (0-0.7); Absolute Neutrophils 8.2 10^3/uL (1.4-6.5); Hematocrit 32.9 % (37.0-47.0); Hemoglobin 10.5 g/dL (12.0-16.0); Mean Corp Hgb Conc. 31.9 g/dL (33.0-37.0); Mean Corpuscular Hgb 28.2 pg (27.0-31.0); Mean Corpuscular Volume 88.2 fL (81.0-99.0); Mean Platelet Volume 9.9 fL (7.4-10.4); Nucleated Red Blood Cells % 0 %; Platelet Count 424 10^3/uL (130-400); Red Blood Cell Count 3.73 10^6/uL (4.20-5.40); Red Cell Dist. Width 14.7 % (11.5-14.5); White Blood Cell Count 10.8 10^3/uL (4.8-10.8)
[2023-12-18 09:30] LABS: INR 3.59; PT 36.4 Sec (11.4-14.6)
== END ==
LOC: HWLAB 08:04
PROVIDERS: ATTENDING PHYSICIAN Internal Medicine Cardiovascular Disease; REFERRING PHYSICIAN Internal Medicine Hematology & Oncology
DX: I34.2 Nonrheumatic mitral (valve) stenosis (principal); Z95.2 Presence of prosthetic heart valve; Z79.01 Long term (current) use of anticoagulants; C50.012 Malignant neoplasm of nipple and areola, left female breast
CPT/HCPCS: 36415; 85025; 85610

== ENCOUNTER → 2023-12-22 13:48 | Outpatient (REF) | payer OTHER, SELFPAY ==
[2023-12-22 13:55] LABS: % Basophils 2.1 % (0-2); % Eosinophils 2.6 % (0-6); % Immature Granulocytes 0.3 % (0-0.5); % Lymphocytes 15.5 % (20.5-51.1); % Monocytes 9.5 % (1.7-9.3); Absolute Basophils 0.2 10^3/uL (0-0.2); Absolute Eosinophils 0.2 10^3/uL (0-0.7); Absolute Lymphocytes 1.4 10^3/uL (1.2-3.4); Absolute Monocytes 0.8 10^3/uL (0.1-0.6); Absolute Neutrophils 6.1 10^3/uL (1.4-6.5); Hematocrit 30.2 % (37.0-47.0); Hemoglobin 9.9 g/dL (12.0-16.0); Mean Corp Hgb Conc. 32.8 g/dL (33.0-37.0); Mean Corpuscular Hgb 28.4 pg (27.0-31.0); Mean Corpuscular Volume 86.8 fL (81.0-99.0); Mean Platelet Volume 10.7 fL (7.4-10.4); Nucleated Red Blood Cells % 0 %; Platelet Count 435 10^3/uL (130-400); Red Blood Cell Count 3.48 10^6/uL (4.20-5.40); Red Cell Dist. Width 14.7 % (11.5-14.5); White Blood Cell Count 8.8 10^3/uL (4.8-10.8)
[2023-12-22 14:04] LABS: INR 4.47; PT 42.7 Sec (11.4-14.6)
== END ==
LOC: OIDL 13:48
PROVIDERS: ATTENDING PHYSICIAN Internal Medicine Hematology & Oncology
DX: C50.012 Malignant neoplasm of nipple and areola, left female breast (principal)
CPT/HCPCS: 85025; 85610

== ENCOUNTER → 2023-12-25 07:19 | Outpatient (REF) | payer OTHER, SELFPAY ==
[2023-12-25 09:40] LABS: % Basophils 2.6 % (0-2); % Eosinophils 4.2 % (0-6); % Immature Granulocytes 0.3 % (0-0.5); % Monocytes 11.9 % (1.7-9.3); Absolute Basophils 0.2 10^3/uL (0-0.2); Absolute Eosinophils 0.3 10^3/uL (0-0.7); Absolute Monocytes 0.8 10^3/uL (0.1-0.6); Absolute Neutrophils 4.6 10^3/uL (1.4-6.5); Hematocrit 32.6 % (37.0-47.0); Hemoglobin 10.5 g/dL (12.0-16.0); Mean Corp Hgb Conc. 32.2 g/dL (33.0-37.0); Mean Corpuscular Hgb 28.1 pg (27.0-31.0); Mean Corpuscular Volume 87.2 fL (81.0-99.0); Mean Platelet Volume 10.2 fL (7.4-10.4); Nucleated Red Blood Cells % 0.7 %; Platelet Count 472 10^3/uL (130-400); Red Blood Cell Count 3.74 10^6/uL (4.20-5.40); Red Cell Dist. Width 14.9 % (11.5-14.5); White Blood Cell Count 6.9 10^3/uL (4.8-10.8)
[2023-12-25 09:50] LABS: INR 2.54; PT 27.7 Sec (11.4-14.6)
== END ==
LOC: HWLAB 07:19
PROVIDERS: ATTENDING PHYSICIAN Internal Medicine Cardiovascular Disease; REFERRING PHYSICIAN Internal Medicine Hematology & Oncology
DX: C50.012 Malignant neoplasm of nipple and areola, left female breast (principal); I34.2 Nonrheumatic mitral (valve) stenosis; Z95.2 Presence of prosthetic heart valve; Z79.01 Long term (current) use of anticoagulants
CPT/HCPCS: 36415; 85025; 85610

== ENCOUNTER → 2023-12-29 15:43 | Outpatient (REF) | payer OTHER, SELFPAY ==
[2023-12-29 11:57] LABS: % Basophils 2.4 % (0-2); % Immature Granulocytes 0.3 % (0-0.5); % Lymphocytes 16.8 % (20.5-51.1); % Monocytes 10.9 % (1.7-9.3); % Neutrophils 65.6 % (42.2-75.2); Absolute Basophils 0.2 10^3/uL (0-0.2); Absolute Eosinophils 0.3 10^3/uL (0-0.7); Absolute Lymphocytes 1.1 10^3/uL (1.2-3.4); Absolute Monocytes 0.7 10^3/uL (0.1-0.6); Absolute Neutrophils 4.5 10^3/uL (1.4-6.5); Hematocrit 30.9 % (37.0-47.0); Hemoglobin 9.9 g/dL (12.0-16.0); Mean Corpuscular Hgb 28.3 pg (27.0-31.0); Mean Corpuscular Volume 88.3 fL (81.0-99.0); Mean Platelet Volume 10.5 fL (7.4-10.4); Nucleated Red Blood Cells % 0 %; Platelet Count 416 10^3/uL (130-400); Red Cell Dist. Width 15.3 % (11.5-14.5); White Blood Cell Count 6.8 10^3/uL (4.8-10.8)
[2023-12-29 12:06] LABS: INR 3.47; PT 34.9 Sec (11.4-14.6)
== END ==
LOC: OIDL 15:43
PROVIDERS: ATTENDING PHYSICIAN Internal Medicine Hematology & Oncology
DX: C50.012 Malignant neoplasm of nipple and areola, left female breast (principal); D50.9 Iron deficiency anemia, unspecified
CPT/HCPCS: 85025; 85610

== ENCOUNTER → 2024-01-01 08:04 | Outpatient (REF) | payer OTHER, SELFPAY ==
[2024-01-01 10:01] LABS: % Basophils 2.3 % (0-2); % Eosinophils 3.2 % (0-6); % Immature Granulocytes 0.3 % (0-0.5); % Lymphocytes 11.9 % (20.5-51.1); % Monocytes 9.9 % (1.7-9.3); % Neutrophils 72.4 % (42.2-75.2); Absolute Basophils 0.2 10^3/uL (0-0.2); Absolute Eosinophils 0.2 10^3/uL (0-0.7); Absolute Lymphocytes 0.9 10^3/uL (1.2-3.4); Absolute Monocytes 0.7 10^3/uL (0.1-0.6); Absolute Neutrophils 5.5 10^3/uL (1.4-6.5); Hemoglobin 10.6 g/dL (12.0-16.0); Mean Corp Hgb Conc. 32.1 g/dL (33.0-37.0); Mean Corpuscular Hgb 28.4 pg (27.0-31.0); Mean Corpuscular Volume 88.5 fL (81.0-99.0); Mean Platelet Volume 10.9 fL (7.4-10.4); Nucleated Red Blood Cells % 0.7 %; Platelet Count 411 10^3/uL (130-400); Red Blood Cell Count 3.73 10^6/uL (4.20-5.40); Red Cell Dist. Width 15.7 % (11.5-14.5); White Blood Cell Count 7.5 10^3/uL (4.8-10.8)
[2024-01-01 10:24] LABS: INR 3.59; PT 36.4 Sec (11.4-14.6)
[2024-01-01 10:50] LABS: TSH 0.19 uIU/ml (0.47-4.68)
== END ==
LOC: HWLAB 08:04
PROVIDERS: ATTENDING PHYSICIAN Internal Medicine Hematology & Oncology; OTHER PHYSICIAN Internal Medicine Endocrinology, Diabetes & Metabolism; REFERRING PHYSICIAN Internal Medicine Cardiovascular Disease
DX: I34.2 Nonrheumatic mitral (valve) stenosis (principal); Z95.2 Presence of prosthetic heart valve; Z79.01 Long term (current) use of anticoagulants; C50.012 Malignant neoplasm of nipple and areola, left female breast; E89.0 Postprocedural hypothyroidism
CPT/HCPCS: 36415; 84443; 85025; 85610

== ENCOUNTER → 2024-01-07 07:43 | Outpatient (REF) | payer OTHER, SELFPAY ==
[2024-01-07 09:27] LABS: % Basophils 2.4 % (0-2); % Eosinophils 4.1 % (0-6); % Immature Granulocytes 0.3 % (0-0.5); % Monocytes 12.9 % (1.7-9.3); % Neutrophils 68.3 % (42.2-75.2); Absolute Basophils 0.2 10^3/uL (0-0.2); Absolute Eosinophils 0.3 10^3/uL (0-0.7); Absolute Lymphocytes 0.9 10^3/uL (1.2-3.4); Absolute Neutrophils 5.3 10^3/uL (1.4-6.5); Hematocrit 33.4 % (37.0-47.0); Hemoglobin 10.4 g/dL (12.0-16.0); Mean Corp Hgb Conc. 31.1 g/dL (33.0-37.0); Mean Corpuscular Hgb 27.7 pg (27.0-31.0); Mean Corpuscular Volume 89.1 fL (81.0-99.0); Mean Platelet Volume 10.3 fL (7.4-10.4); Nucleated Red Blood Cells % 0.3 %; Platelet Count 374 10^3/uL (130-400); Red Blood Cell Count 3.75 10^6/uL (4.20-5.40); White Blood Cell Count 7.8 10^3/uL (4.8-10.8)
[2024-01-07 10:10] LABS: INR 3.34; PT 34.4 Sec (11.4-14.6)
== END ==
LOC: HWLAB 07:43
PROVIDERS: ATTENDING PHYSICIAN Internal Medicine Hematology & Oncology; REFERRING PHYSICIAN Internal Medicine Cardiovascular Disease
DX: I34.2 Nonrheumatic mitral (valve) stenosis (principal); Z95.2 Presence of prosthetic heart valve; Z79.01 Long term (current) use of anticoagulants; C50.012 Malignant neoplasm of nipple and areola, left female breast
CPT/HCPCS: 36415; 85025; 85610

== ENCOUNTER → 2024-01-15 10:27 | Outpatient (REF) | payer OTHER, SELFPAY ==
[2024-01-15 09:15] LABS: % Eosinophils 2.5 % (0-6); % Immature Granulocytes 0.1 % (0-0.5); % Lymphocytes 11.4 % (20.5-51.1); % Monocytes 9.3 % (1.7-9.3); % Neutrophils 75.7 % (42.2-75.2); Absolute Basophils 0.1 10^3/uL (0-0.2); Absolute Eosinophils 0.2 10^3/uL (0-0.7); Absolute Monocytes 0.8 10^3/uL (0.1-0.6); Absolute Neutrophils 6.6 10^3/uL (1.4-6.5); Hematocrit 34.9 % (37.0-47.0); Hemoglobin 11.1 g/dL (12.0-16.0); Mean Corp Hgb Conc. 31.8 g/dL (33.0-37.0); Mean Corpuscular Hgb 28.2 pg (27.0-31.0); Mean Corpuscular Volume 88.6 fL (81.0-99.0); Platelet Count 392 10^3/uL (130-400); Red Blood Cell Count 3.94 10^6/uL (4.20-5.40); White Blood Cell Count 8.7 10^3/uL (4.8-10.8)
[2024-01-15 10:28] LABS: PT 47.4 Sec (11.4-14.6)
== END ==
LOC: OIDL 10:27
PROVIDERS: ATTENDING PHYSICIAN Internal Medicine Hematology & Oncology
DX: C50.012 Malignant neoplasm of nipple and areola, left female breast (principal)
CPT/HCPCS: 85025; 85610

== ENCOUNTER → 2024-01-19 11:23 | Outpatient (REF) | payer OTHER, SELFPAY ==
[2024-01-19 15:22] LABS: % Basophils 3.2 % (0-2); % Eosinophils 4.1 % (0-6); % Immature Granulocytes 0.4 % (0-0.5); % Monocytes 9.6 % (1.7-9.3); % Neutrophils 63.7 % (42.2-75.2); Absolute Basophils 0.2 10^3/uL (0-0.2); Absolute Eosinophils 0.3 10^3/uL (0-0.7); Absolute Lymphocytes 1.3 10^3/uL (1.2-3.4); Absolute Monocytes 0.7 10^3/uL (0.1-0.6); Absolute Neutrophils 4.3 10^3/uL (1.4-6.5); Hematocrit 32.2 % (37.0-47.0); Hemoglobin 10.6 g/dL (12.0-16.0); Mean Corp Hgb Conc. 32.9 g/dL (33.0-37.0); Mean Platelet Volume 10.9 fL (7.4-10.4); Nucleated Red Blood Cells % 0 %; Platelet Count 406 10^3/uL (130-400); Red Blood Cell Count 3.66 10^6/uL (4.20-5.40); Red Cell Dist. Width 16.4 % (11.5-14.5); White Blood Cell Count 6.8 10^3/uL (4.8-10.8)
[2024-01-19 15:36] LABS: INR 2.26; PT 24.8 Sec (11.4-14.6)
== END ==
LOC: HWLAB 11:23
PROVIDERS: ATTENDING PHYSICIAN Internal Medicine Hematology & Oncology; OTHER PHYSICIAN Internal Medicine Cardiovascular Disease; REFERRING PHYSICIAN Internal Medicine Cardiovascular Disease
DX: C50.012 Malignant neoplasm of nipple and areola, left female breast (principal); I34.2 Nonrheumatic mitral (valve) stenosis; Z95.2 Presence of prosthetic heart valve; Z79.01 Long term (current) use of anticoagulants
CPT/HCPCS: 36415; 85025; 85610

== ENCOUNTER → 2024-01-26 11:22 | Outpatient (REF) | payer OTHER, SELFPAY ==
[2024-01-26 11:57] LABS: % Basophils 2.1 % (0-2); % Immature Granulocytes 0.3 % (0-0.5); % Lymphocytes 13.4 % (20.5-51.1); % Monocytes 9.6 % (1.7-9.3); % Neutrophils 72.6 % (42.2-75.2); Absolute Basophils 0.2 10^3/uL (0-0.2); Absolute Eosinophils 0.1 10^3/uL (0-0.7); Absolute Monocytes 0.7 10^3/uL (0.1-0.6); Absolute Neutrophils 5.2 10^3/uL (1.4-6.5); Hematocrit 34.9 % (37.0-47.0); Mean Corp Hgb Conc. 31.5 g/dL (33.0-37.0); Mean Corpuscular Hgb 27.8 pg (27.0-31.0); Mean Corpuscular Volume 88.1 fL (81.0-99.0); Mean Platelet Volume 10.4 fL (7.4-10.4); Nucleated Red Blood Cells % 0 %; Platelet Count 454 10^3/uL (130-400); Red Blood Cell Count 3.96 10^6/uL (4.20-5.40); Red Cell Dist. Width 16.7 % (11.5-14.5); White Blood Cell Count 7.2 10^3/uL (4.8-10.8)
== END ==
LOC: OIDL 11:22
PROVIDERS: ATTENDING PHYSICIAN Internal Medicine Hematology & Oncology
DX: C50.012 Malignant neoplasm of nipple and areola, left female breast (principal); D50.9 Iron deficiency anemia, unspecified
CPT/HCPCS: 85025

== ENCOUNTER → 2024-02-03 09:13 | Outpatient (REF) | payer OTHER, SELFPAY ==
[2024-02-03 11:46] LABS: % Basophils 2.6 % (0-2); % Eosinophils 2.3 % (0-6); % Immature Granulocytes 0.2 % (0-0.5); % Lymphocytes 12.3 % (20.5-51.1); % Monocytes 10.5 % (1.7-9.3); % Neutrophils 72.1 % (42.2-75.2); Absolute Basophils 0.2 10^3/uL (0-0.2); Absolute Eosinophils 0.2 10^3/uL (0-0.7); Absolute Lymphocytes 0.8 10^3/uL (1.2-3.4); Absolute Monocytes 0.7 10^3/uL (0.1-0.6); Absolute Neutrophils 4.8 10^3/uL (1.4-6.5); Hematocrit 37.3 % (37.0-47.0); Hemoglobin 11.7 g/dL (12.0-16.0); Iron 89 ug/dl (37-170); Mean Corp Hgb Conc. 31.4 g/dL (33.0-37.0); Mean Corpuscular Volume 89.2 fL (81.0-99.0); Mean Platelet Volume 11.2 fL (7.4-10.4); Nucleated Red Blood Cells % 0 %; Platelet Count 373 10^3/uL (130-400); Red Blood Cell Count 4.18 10^6/uL (4.20-5.40); Red Cell Dist. Width 17.1 % (11.5-14.5); White Blood Cell Count 6.6 10^3/uL (4.8-10.8)
[2024-02-03 11:56] LABS: Percent Saturation 32 % (20-50); Total Iron Binding Capacity 274 ug/dl (265-497)
[2024-02-03 11:58] LABS: INR 3.06; PT 31.6 Sec (11.4-14.6)
== END ==
LOC: HWLAB 09:13
PROVIDERS: ATTENDING PHYSICIAN Internal Medicine Hematology & Oncology; OTHER PHYSICIAN Internal Medicine Cardiovascular Disease; REFERRING PHYSICIAN Internal Medicine Cardiovascular Disease
DX: C50.012 Malignant neoplasm of nipple and areola, left female breast (principal); D50.9 Iron deficiency anemia, unspecified; I34.2 Nonrheumatic mitral (valve) stenosis; Z95.2 Presence of prosthetic heart valve; Z79.01 Long term (current) use of anticoagulants
CPT/HCPCS: 36415; 82728; 83540; 83550; 85025; 85610

== ENCOUNTER → 2024-02-17 12:21 | Outpatient (REF) | payer OTHER, SELFPAY ==
[2024-02-17 15:35] LABS: % Basophils 2.4 % (0-2); % Eosinophils 3.8 % (0-6); % Immature Granulocytes 0.5 % (0-0.5); % Lymphocytes 16.2 % (20.5-51.1); % Monocytes 10.3 % (1.7-9.3); % Neutrophils 66.8 % (42.2-75.2); Absolute Basophils 0.1 10^3/uL (0-0.2); Absolute Eosinophils 0.2 10^3/uL (0-0.7); Absolute Lymphocytes 0.9 10^3/uL (1.2-3.4); Absolute Monocytes 0.6 10^3/uL (0.1-0.6); Absolute Neutrophils 3.7 10^3/uL (1.4-6.5); Hematocrit 34.9 % (37.0-47.0); Hemoglobin 11.4 g/dL (12.0-16.0); Mean Corp Hgb Conc. 32.7 g/dL (33.0-37.0); Mean Corpuscular Volume 85.7 fL (81.0-99.0); Mean Platelet Volume 10.6 fL (7.4-10.4); Nucleated Red Blood Cells % 0 %; Platelet Count 375 10^3/uL (130-400); Red Blood Cell Count 4.07 10^6/uL (4.20-5.40); Red Cell Dist. Width 16.3 % (11.5-14.5); White Blood Cell Count 5.5 10^3/uL (4.8-10.8)
[2024-02-17 15:43] LABS: INR 3.56; PT 35.6 Sec (11.4-14.6)
== END ==
LOC: HWLAB 12:21
PROVIDERS: ATTENDING PHYSICIAN Internal Medicine Cardiovascular Disease; REFERRING PHYSICIAN Internal Medicine Hematology & Oncology
DX: I34.2 Nonrheumatic mitral (valve) stenosis (principal); Z95.2 Presence of prosthetic heart valve; Z79.01 Long term (current) use of anticoagulants; C50.012 Malignant neoplasm of nipple and areola, left female breast; D50.9 Iron deficiency anemia, unspecified
CPT/HCPCS: 36415; 85025; 85610

== ENCOUNTER → 2024-03-04 11:13 | Outpatient (REF) | payer OTHER, SELFPAY ==
[2024-03-04 16:08] LABS: % Basophils 2.3 % (0-2); % Eosinophils 3.1 % (0-6); % Immature Granulocytes 0.3 % (0-0.5); % Lymphocytes 13.4 % (20.5-51.1); % Monocytes 9.7 % (1.7-9.3); % Neutrophils 71.2 % (42.2-75.2); Absolute Basophils 0.2 10^3/uL (0-0.2); Absolute Eosinophils 0.2 10^3/uL (0-0.7); Absolute Lymphocytes 0.9 10^3/uL (1.2-3.4); Absolute Monocytes 0.7 10^3/uL (0.1-0.6); Hematocrit 39.4 % (37.0-47.0); Hemoglobin 12.5 g/dL (12.0-16.0); Mean Corp Hgb Conc. 31.7 g/dL (33.0-37.0); Mean Corpuscular Volume 88.3 fL (81.0-99.0); Mean Platelet Volume 10.5 fL (7.4-10.4); Nucleated Red Blood Cells % 0.3 %; Platelet Count 337 10^3/uL (130-400); Red Blood Cell Count 4.46 10^6/uL (4.20-5.40); Red Cell Dist. Width 17.2 % (11.5-14.5)
[2024-03-04 16:20] LABS: PT 38.9 Sec (11.4-14.6)
== END ==
LOC: HWLAB 11:13
PROVIDERS: ATTENDING PHYSICIAN Internal Medicine Hematology & Oncology; OTHER PHYSICIAN Internal Medicine Cardiovascular Disease; REFERRING PHYSICIAN Internal Medicine Cardiovascular Disease
DX: Z79.01 Long term (current) use of anticoagulants (principal); Z95.2 Presence of prosthetic heart valve; C50.012 Malignant neoplasm of nipple and areola, left female breast; D50.9 Iron deficiency anemia, unspecified
CPT/HCPCS: 36415; 85025; 85610

== ENCOUNTER → 2024-03-19 09:28 | Outpatient (REF) | payer OTHER, SELFPAY ==
[2024-03-19 11:57] LABS: % Basophils 2.5 % (0-2); % Immature Granulocytes 0.3 % (0-0.5); % Lymphocytes 14.9 % (20.5-51.1); % Monocytes 9.8 % (1.7-9.3); % Neutrophils 70.5 % (42.2-75.2); Absolute Basophils 0.2 10^3/uL (0-0.2); Absolute Eosinophils 0.2 10^3/uL (0-0.7); Absolute Lymphocytes 1.1 10^3/uL (1.2-3.4); Absolute Monocytes 0.7 10^3/uL (0.1-0.6); Absolute Neutrophils 5.2 10^3/uL (1.4-6.5); Hematocrit 40.5 % (37.0-47.0); Hemoglobin 13.5 g/dL (12.0-16.0); Mean Corp Hgb Conc. 33.3 g/dL (33.0-37.0); Mean Corpuscular Hgb 27.7 pg (27.0-31.0); Mean Corpuscular Volume 83.2 fL (81.0-99.0); Mean Platelet Volume 9.9 fL (7.4-10.4); Nucleated Red Blood Cells % 0 %; Platelet Count 371 10^3/uL (130-400); Red Blood Cell Count 4.87 10^6/uL (4.20-5.40); Red Cell Dist. Width 16.6 % (11.5-14.5); White Blood Cell Count 7.3 10^3/uL (4.8-10.8)
[2024-03-19 12:09] LABS: INR 3.34; PT 33.9 Sec (11.4-14.6)
[2024-03-19 12:15] LABS: Iron 50 ug/dl (37-170)
[2024-03-19 12:24] LABS: Percent Saturation 15 % (20-50); Total Iron Binding Capacity 314 ug/dl (265-497)
== END ==
LOC: RST 09:28
PROVIDERS: ATTENDING PHYSICIAN Internal Medicine Hematology & Oncology; FAMILY PHYSICIAN Emergency Medicine; REFERRING PHYSICIAN Internal Medicine Cardiovascular Disease
DX: C50.012 Malignant neoplasm of nipple and areola, left female breast (principal); D50.9 Iron deficiency anemia, unspecified
CPT/HCPCS: 36415; 74230; 82728; 83540; 83550; 85025; 85610; 92611

== ENCOUNTER → 2024-04-05 06:55 | Outpatient (REF) | payer OTHER, SELFPAY ==
[2024-04-05 10:02] LABS: % Basophils 1.9 % (0-2); % Eosinophils 2.9 % (0-6); % Immature Granulocytes 0.3 % (0-0.5); % Monocytes 9.6 % (1.7-9.3); % Neutrophils 76.3 % (42.2-75.2); Absolute Basophils 0.2 10^3/uL (0-0.2); Absolute Eosinophils 0.2 10^3/uL (0-0.7); Absolute Lymphocytes 0.7 10^3/uL (1.2-3.4); Absolute Monocytes 0.8 10^3/uL (0.1-0.6); Absolute Neutrophils 6.1 10^3/uL (1.4-6.5); Hematocrit 39.3 % (37.0-47.0); Hemoglobin 12.7 g/dL (12.0-16.0); Mean Corp Hgb Conc. 32.3 g/dL (33.0-37.0); Mean Corpuscular Hgb 27.5 pg (27.0-31.0); Mean Corpuscular Volume 85.1 fL (81.0-99.0); Mean Platelet Volume 10.9 fL (7.4-10.4); Nucleated Red Blood Cells % 0 %; Platelet Count 367 10^3/uL (130-400); Red Blood Cell Count 4.62 10^6/uL (4.20-5.40)
[2024-04-05 10:11] LABS: INR 2.24; PT 24.6 Sec (11.4-14.6)
[2024-04-05 10:19] LABS: Iron 81 ug/dl (37-170)
[2024-04-05 10:29] LABS: Percent Saturation 27 % (20-50); Total Iron Binding Capacity 293 ug/dl (265-497)
== END ==
LOC: HWLAB 06:55
PROVIDERS: ATTENDING PHYSICIAN Internal Medicine Hematology & Oncology; REFERRING PHYSICIAN Internal Medicine Cardiovascular Disease
DX: C50.012 Malignant neoplasm of nipple and areola, left female breast (principal); D50.9 Iron deficiency anemia, unspecified; I34.2 Nonrheumatic mitral (valve) stenosis; Z79.01 Long term (current) use of anticoagulants; Z95.2 Presence of prosthetic heart valve
CPT/HCPCS: 36415; 82728; 83540; 83550; 85025; 85610

== ENCOUNTER → 2024-04-27 09:08 | Outpatient (REF) | payer OTHER, SELFPAY ==
[2024-04-27 11:59] LABS: % Basophils 1.8 % (0-2); % Eosinophils 3.6 % (0-6); % Immature Granulocytes 0.2 % (0-0.5); % Lymphocytes 9.5 % (20.5-51.1); % Monocytes 8.9 % (1.7-9.3); Absolute Basophils 0.2 10^3/uL (0-0.2); Absolute Eosinophils 0.3 10^3/uL (0-0.7); Absolute Lymphocytes 0.8 10^3/uL (1.2-3.4); Absolute Monocytes 0.7 10^3/uL (0.1-0.6); Absolute Neutrophils 6.4 10^3/uL (1.4-6.5); Hematocrit 37.1 % (37.0-47.0); Hemoglobin 12.4 g/dL (12.0-16.0); Mean Corp Hgb Conc. 33.4 g/dL (33.0-37.0); Mean Corpuscular Hgb 27.9 pg (27.0-31.0); Mean Corpuscular Volume 83.6 fL (81.0-99.0); Mean Platelet Volume 10.8 fL (7.4-10.4); Nucleated Red Blood Cells % 0 %; Platelet Count 374 10^3/uL (130-400); Red Blood Cell Count 4.44 10^6/uL (4.20-5.40); Red Cell Dist. Width 16.1 % (11.5-14.5); White Blood Cell Count 8.4 10^3/uL (4.8-10.8)
[2024-04-27 12:12] LABS: INR 3.25; PT 33.1 Sec (11.4-14.6)
[2024-04-27 12:16] LABS: Iron 71 ug/dl (37-170)
[2024-04-27 12:26] LABS: Percent Saturation 22 % (20-50); Total Iron Binding Capacity 312 ug/dl (265-497)
[2024-04-28 17:44] LABS: CA 27-29 14.1 U/mL (<=39.0)
== END ==
LOC: HWLAB 09:08
PROVIDERS: ATTENDING PHYSICIAN Internal Medicine Cardiovascular Disease; REFERRING PHYSICIAN Internal Medicine Hematology & Oncology
DX: I34.2 Nonrheumatic mitral (valve) stenosis (principal); Z79.01 Long term (current) use of anticoagulants; Z95.2 Presence of prosthetic heart valve; C50.012 Malignant neoplasm of nipple and areola, left female breast; D50.9 Iron deficiency anemia, unspecified; R13.10 Dysphagia, unspecified
CPT/HCPCS: 36415; 82728; 83540; 83550; 85025; 85610; 86300

== ENCOUNTER → 2024-05-14 07:34 | Outpatient (REF) | payer OTHER, SELFPAY ==
[2024-05-14 09:37] LABS: % Eosinophils 2.5 % (0-6); % Immature Granulocytes 0.2 % (0-0.5); % Lymphocytes 7.4 % (20.5-51.1); % Monocytes 10.3 % (1.7-9.3); % Neutrophils 77.6 % (42.2-75.2); Absolute Basophils 0.2 10^3/uL (0-0.2); Absolute Eosinophils 0.3 10^3/uL (0-0.7); Absolute Lymphocytes 0.8 10^3/uL (1.2-3.4); Absolute Monocytes 1.1 10^3/uL (0.1-0.6); Absolute Neutrophils 8.1 10^3/uL (1.4-6.5); Hematocrit 37.6 % (37.0-47.0); Hemoglobin 12.6 g/dL (12.0-16.0); Mean Corp Hgb Conc. 33.5 g/dL (33.0-37.0); Mean Corpuscular Hgb 28.6 pg (27.0-31.0); Mean Corpuscular Volume 85.3 fL (81.0-99.0); Mean Platelet Volume 10.6 fL (7.4-10.4); Nucleated Red Blood Cells % 0 %; Platelet Count 396 10^3/uL (130-400); Red Blood Cell Count 4.41 10^6/uL (4.20-5.40); Red Cell Dist. Width 16.4 % (11.5-14.5); White Blood Cell Count 10.4 10^3/uL (4.8-10.8)
[2024-05-14 09:46] LABS: INR 3.44; PT 34.7 Sec (11.4-14.6)
== END ==
LOC: HWLAB 07:34
PROVIDERS: ATTENDING PHYSICIAN Internal Medicine Hematology & Oncology; REFERRING PHYSICIAN Internal Medicine Cardiovascular Disease
DX: Z79.01 Long term (current) use of anticoagulants (principal); Z95.2 Presence of prosthetic heart valve; C50.012 Malignant neoplasm of nipple and areola, left female breast; D50.9 Iron deficiency anemia, unspecified
CPT/HCPCS: 36415; 85025; 85610

== ENCOUNTER → 2024-05-24 09:37 | Outpatient (REF) | payer OTHER, SELFPAY ==
[2024-05-24 12:42] LABS: % Basophils 2.3 % (0-2); % Eosinophils 2.8 % (0-6); % Immature Granulocytes 0.5 % (0-0.5); % Lymphocytes 9.5 % (20.5-51.1); % Neutrophils 76.9 % (42.2-75.2); Absolute Basophils 0.2 10^3/uL (0-0.2); Absolute Eosinophils 0.2 10^3/uL (0-0.7); Absolute Lymphocytes 0.8 10^3/uL (1.2-3.4); Absolute Monocytes 0.7 10^3/uL (0.1-0.6); Absolute Neutrophils 6.3 10^3/uL (1.4-6.5); Hematocrit 36.9 % (37.0-47.0); Hemoglobin 12.2 g/dL (12.0-16.0); Mean Corp Hgb Conc. 33.1 g/dL (33.0-37.0); Mean Corpuscular Hgb 27.9 pg (27.0-31.0); Mean Corpuscular Volume 84.2 fL (81.0-99.0); Mean Platelet Volume 10.7 fL (7.4-10.4); Nucleated Red Blood Cells % 0 %; Platelet Count 368 10^3/uL (130-400); Red Blood Cell Count 4.38 10^6/uL (4.20-5.40); Red Cell Dist. Width 16.2 % (11.5-14.5); White Blood Cell Count 8.1 10^3/uL (4.8-10.8)
[2024-05-24 13:35] LABS: PT 34.3 Sec (11.4-14.6)
[2024-05-24 14:25] LABS: Iron 62 ug/dl (37-170)
[2024-05-24 14:37] LABS: Percent Saturation 20 % (20-50); Total Iron Binding Capacity 304 ug/dl (265-497)
== END ==
LOC: HWLAB 09:37
PROVIDERS: ATTENDING PHYSICIAN Internal Medicine Cardiovascular Disease; REFERRING PHYSICIAN Internal Medicine Hematology & Oncology
DX: C50.012 Malignant neoplasm of nipple and areola, left female breast (principal); D50.9 Iron deficiency anemia, unspecified; R13.10 Dysphagia, unspecified; I34.2 Nonrheumatic mitral (valve) stenosis; Z79.01 Long term (current) use of anticoagulants; Z95.2 Presence of prosthetic heart valve
CPT/HCPCS: 36415; 82728; 83540; 83550; 85025; 85610

== ENCOUNTER → 2024-06-08 07:13 | Outpatient (REF) | payer OTHER, SELFPAY ==
[2024-06-08 09:14] LABS: % Basophils 2.4 % (0-2); % Eosinophils 3.1 % (0-6); % Immature Granulocytes 0.3 % (0-0.5); % Lymphocytes 8.5 % (20.5-51.1); % Monocytes 10.1 % (1.7-9.3); % Neutrophils 75.6 % (42.2-75.2); Absolute Basophils 0.2 10^3/uL (0-0.2); Absolute Eosinophils 0.3 10^3/uL (0-0.7); Absolute Lymphocytes 0.7 10^3/uL (1.2-3.4); Absolute Monocytes 0.9 10^3/uL (0.1-0.6); Absolute Neutrophils 6.5 10^3/uL (1.4-6.5); Hematocrit 38.8 % (37.0-47.0); Hemoglobin 12.8 g/dL (12.0-16.0); Iron 89 ug/dl (37-170); Mean Corpuscular Hgb 27.9 pg (27.0-31.0); Mean Corpuscular Volume 84.7 fL (81.0-99.0); Mean Platelet Volume 10.7 fL (7.4-10.4); Nucleated Red Blood Cells % 0 %; Platelet Count 364 10^3/uL (130-400); Red Blood Cell Count 4.58 10^6/uL (4.20-5.40); Red Cell Dist. Width 17.2 % (11.5-14.5); White Blood Cell Count 8.7 10^3/uL (4.8-10.8)
[2024-06-08 09:15] LABS: INR 3.62; PT 36.1 Sec (11.4-14.6)
[2024-06-08 09:25] LABS: Percent Saturation 32 % (20-50); Total Iron Binding Capacity 273 ug/dl (265-497)
== END ==
LOC: HWLAB 07:13
PROVIDERS: ATTENDING PHYSICIAN Internal Medicine Hematology & Oncology; REFERRING PHYSICIAN Internal Medicine Cardiovascular Disease
DX: I34.2 Nonrheumatic mitral (valve) stenosis (principal); Z79.01 Long term (current) use of anticoagulants; Z95.2 Presence of prosthetic heart valve; C50.012 Malignant neoplasm of nipple and areola, left female breast; D50.9 Iron deficiency anemia, unspecified; R13.10 Dysphagia, unspecified
CPT/HCPCS: 36415; 82728; 83540; 83550; 85025; 85610

== ENCOUNTER → 2024-06-28 07:19 | Outpatient (REF) | payer OTHER, SELFPAY ==
[2024-06-28 11:01] LABS: % Basophils 1.8 % (0-2); % Eosinophils 2.5 % (0-6); % Immature Granulocytes 0.3 % (0-0.5); % Lymphocytes 7.3 % (20.5-51.1); % Monocytes 11.2 % (1.7-9.3); % Neutrophils 76.9 % (42.2-75.2); Absolute Basophils 0.2 10^3/uL (0-0.2); Absolute Eosinophils 0.2 10^3/uL (0-0.7); Absolute Lymphocytes 0.7 10^3/uL (1.2-3.4); Absolute Monocytes 1.1 10^3/uL (0.1-0.6); Absolute Neutrophils 7.4 10^3/uL (1.4-6.5); Hematocrit 39.2 % (37.0-47.0); Hemoglobin 12.7 g/dL (12.0-16.0); Mean Corp Hgb Conc. 32.4 g/dL (33.0-37.0); Mean Corpuscular Hgb 27.5 pg (27.0-31.0); Mean Corpuscular Volume 84.8 fL (81.0-99.0); Mean Platelet Volume 11.1 fL (7.4-10.4); Nucleated Red Blood Cells % 0 %; Platelet Count 374 10^3/uL (130-400); Red Blood Cell Count 4.62 10^6/uL (4.20-5.40); Red Cell Dist. Width 16.8 % (11.5-14.5); White Blood Cell Count 9.6 10^3/uL (4.8-10.8)
[2024-06-28 11:10] LABS: ALT (SGPT) 21 U/L (0-35); AST (SGOT) 35 U/L (14-36); Albumin 4.4 g/dl (3.5-5.0); Alkaline Phosphatase 117 U/L (38-126); Blood Urea Nitrogen 24 mg/dl (7-17); Calcium 9.6 mg/dl (8.4-10.2); Carbon Dioxide 24 mmol/L (22-30); Chloride 98 mmol/L (98-107); Glucose 94 mg/dl (70-99); Iron 106 ug/dl (37-170); Potassium 4.9 mmol/L (3.5-5.1); Sodium 136 mmol/L (135-145); Total Bilirubin 0.6 mg/dl (0.2-1.3); Total Protein 8.2 g/dl (6.3-8.2); eGFR > 60.00
[2024-06-28 11:14] LABS: INR 3.53; PT 35.4 Sec (11.4-14.6)
[2024-06-28 11:21] LABS: Percent Saturation 38 % (20-50); Total Iron Binding Capacity 275 ug/dl (265-497)
[2024-06-28 11:40] LABS: TSH 1.08 uIU/ml (0.47-4.68)
== END ==
LOC: HWLAB 07:19
PROVIDERS: ATTENDING PHYSICIAN Internal Medicine Hematology & Oncology; OTHER PHYSICIAN Internal Medicine Cardiovascular Disease; REFERRING PHYSICIAN Internal Medicine Endocrinology, Diabetes & Metabolism
DX: I34.2 Nonrheumatic mitral (valve) stenosis (principal); Z79.01 Long term (current) use of anticoagulants; Z95.2 Presence of prosthetic heart valve; C50.012 Malignant neoplasm of nipple and areola, left female breast; D50.9 Iron deficiency anemia, unspecified; R13.10 Dysphagia, unspecified; E89.0 Postprocedural hypothyroidism
CPT/HCPCS: 36415; 80053; 82728; 83540; 83550; 84443; 85025; 85610; 86300

== ENCOUNTER → 2024-07-12 08:45 | Outpatient (REF) | payer OTHER, SELFPAY ==
[2024-07-12 12:18] LABS: % Basophils 2.4 % (0-2); % Eosinophils 3.2 % (0-6); % Immature Granulocytes 0.6 % (0-0.5); % Lymphocytes 9.2 % (20.5-51.1); % Neutrophils 76.6 % (42.2-75.2); Absolute Basophils 0.2 10^3/uL (0-0.2); Absolute Eosinophils 0.3 10^3/uL (0-0.7); Absolute Immature Granulocytes 0.1 10^3/uL (0-0.05); Absolute Lymphocytes 0.8 10^3/uL (1.2-3.4); Absolute Monocytes 0.7 10^3/uL (0.1-0.6); Absolute Neutrophils 6.4 10^3/uL (1.4-6.5); Hematocrit 40.7 % (37.0-47.0); Hemoglobin 13.2 g/dL (12.0-16.0); Mean Corp Hgb Conc. 32.4 g/dL (33.0-37.0); Mean Corpuscular Hgb 27.7 pg (27.0-31.0); Mean Corpuscular Volume 85.3 fL (81.0-99.0); Mean Platelet Volume 10.2 fL (7.4-10.4); Nucleated Red Blood Cells % 0 %; Platelet Count 405 10^3/uL (130-400); Red Blood Cell Count 4.77 10^6/uL (4.20-5.40); Red Cell Dist. Width 17.1 % (11.5-14.5); White Blood Cell Count 8.4 10^3/uL (4.8-10.8)
[2024-07-12 12:26] LABS: INR 2.85; PT 29.9 Sec (11.4-14.6)
== END ==
LOC: HWLAB 08:45
PROVIDERS: ATTENDING PHYSICIAN Internal Medicine Cardiovascular Disease; REFERRING PHYSICIAN Internal Medicine Hematology & Oncology
DX: I34.2 Nonrheumatic mitral (valve) stenosis (principal); Z79.01 Long term (current) use of anticoagulants; Z95.2 Presence of prosthetic heart valve; C50.012 Malignant neoplasm of nipple and areola, left female breast; D50.9 Iron deficiency anemia, unspecified
CPT/HCPCS: 36415; 85025; 85610

== ENCOUNTER → 2024-07-26 08:38 | Outpatient (REF) | payer OTHER, SELFPAY ==
[2024-07-26 09:50] LABS: % Basophils 2.4 % (0-2); % Eosinophils 2.9 % (0-6); % Immature Granulocytes 0.3 % (0-0.5); % Lymphocytes 10.4 % (20.5-51.1); Absolute Basophils 0.2 10^3/uL (0-0.2); Absolute Eosinophils 0.2 10^3/uL (0-0.7); Absolute Lymphocytes 0.6 10^3/uL (1.2-3.4); Absolute Monocytes 0.7 10^3/uL (0.1-0.6); Absolute Neutrophils 4.5 10^3/uL (1.4-6.5); Hematocrit 38.5 % (37.0-47.0); Hemoglobin 12.8 g/dL (12.0-16.0); Mean Corp Hgb Conc. 33.2 g/dL (33.0-37.0); Mean Corpuscular Hgb 28.7 pg (27.0-31.0); Mean Corpuscular Volume 86.3 fL (81.0-99.0); Mean Platelet Volume 10.8 fL (7.4-10.4); Nucleated Red Blood Cells % 0 %; Platelet Count 377 10^3/uL (130-400); Red Blood Cell Count 4.46 10^6/uL (4.20-5.40); Red Cell Dist. Width 16.3 % (11.5-14.5); White Blood Cell Count 6.2 10^3/uL (4.8-10.8)
[2024-07-26 10:02] LABS: INR 2.94; PT 30.6 Sec (11.4-14.6)
== END ==
LOC: HWLAB 08:38
PROVIDERS: ATTENDING PHYSICIAN Internal Medicine Hematology & Oncology; REFERRING PHYSICIAN Internal Medicine Cardiovascular Disease
DX: I34.2 Nonrheumatic mitral (valve) stenosis (principal); Z79.01 Long term (current) use of anticoagulants; Z95.5 Presence of coronary angioplasty implant and graft; C50.012 Malignant neoplasm of nipple and areola, left female breast; D50.9 Iron deficiency anemia, unspecified
CPT/HCPCS: 36415; 85025; 85610

== ENCOUNTER → 2024-07-29 07:14 | Outpatient (REF) | payer OTHER, SELFPAY | LOC: HWRCS 07:14 | PROVIDERS: ATTENDING PHYSICIAN Internal Medicine Cardiovascular Disease; FAMILY PHYSICIAN Emergency Medicine | DX: Z95.2 Presence of prosthetic heart valve (principal) | CPT/HCPCS: 93306 ==

== ENCOUNTER → 2024-08-18 09:47 | Outpatient (REF) | payer OTHER, SELFPAY ==
[2024-08-18 12:20] LABS: % Basophils 2.2 % (0-2); % Eosinophils 2.6 % (0-6); % Immature Granulocytes 0.3 % (0-0.5); % Lymphocytes 9.7 % (20.5-51.1); % Monocytes 10.2 % (1.7-9.3); Absolute Basophils 0.2 10^3/uL (0-0.2); Absolute Eosinophils 0.2 10^3/uL (0-0.7); Absolute Lymphocytes 0.7 10^3/uL (1.2-3.4); Absolute Monocytes 0.8 10^3/uL (0.1-0.6); Absolute Neutrophils 5.7 10^3/uL (1.4-6.5); Hematocrit 38.6 % (37.0-47.0); Hemoglobin 12.6 g/dL (12.0-16.0); Mean Corp Hgb Conc. 32.6 g/dL (33.0-37.0); Mean Corpuscular Hgb 28.6 pg (27.0-31.0); Mean Corpuscular Volume 87.7 fL (81.0-99.0); Mean Platelet Volume 11.2 fL (7.4-10.4); Nucleated Red Blood Cells % 0 %; Platelet Count 369 10^3/uL (130-400); Red Cell Dist. Width 16.1 % (11.5-14.5); White Blood Cell Count 7.6 10^3/uL (4.8-10.8)
[2024-08-18 12:28] LABS: INR 4.28; PT 41.9 Sec (11.4-14.6)
[2024-08-18 12:32] LABS: Iron 65 ug/dl (37-170)
[2024-08-18 12:42] LABS: Percent Saturation 23 % (20-50); Total Iron Binding Capacity 273 ug/dl (265-497)
== END ==
LOC: HWLAB 09:47
PROVIDERS: ATTENDING PHYSICIAN Internal Medicine Hematology & Oncology; REFERRING PHYSICIAN Internal Medicine Cardiovascular Disease
DX: C50.012 Malignant neoplasm of nipple and areola, left female breast (principal); D50.9 Iron deficiency anemia, unspecified; R13.10 Dysphagia, unspecified; I34.2 Nonrheumatic mitral (valve) stenosis; Z79.01 Long term (current) use of anticoagulants; Z95.2 Presence of prosthetic heart valve
CPT/HCPCS: 36415; 82728; 83540; 83550; 85025; 85610

== ENCOUNTER → 2024-09-13 08:15 | Outpatient (REF) | payer OTHER, SELFPAY ==
[2024-09-13 09:32] LABS: % Eosinophils 2.8 % (0-6); % Immature Granulocytes 0.3 % (0-0.5); % Lymphocytes 7.4 % (20.5-51.1); % Monocytes 7.5 % (1.7-9.3); Absolute Basophils 0.2 10^3/uL (0-0.2); Absolute Eosinophils 0.2 10^3/uL (0-0.7); Absolute Lymphocytes 0.6 10^3/uL (1.2-3.4); Absolute Monocytes 0.6 10^3/uL (0.1-0.6); Hematocrit 39.9 % (37.0-47.0); Hemoglobin 13.2 g/dL (12.0-16.0); Mean Corp Hgb Conc. 33.1 g/dL (33.0-37.0); Mean Corpuscular Hgb 28.9 pg (27.0-31.0); Mean Corpuscular Volume 87.3 fL (81.0-99.0); Mean Platelet Volume 10.5 fL (7.4-10.4); Nucleated Red Blood Cells % 0 %; Platelet Count 357 10^3/uL (130-400); Red Blood Cell Count 4.57 10^6/uL (4.20-5.40); Red Cell Dist. Width 15.9 % (11.5-14.5); White Blood Cell Count 7.5 10^3/uL (4.8-10.8)
[2024-09-13 09:54] LABS: INR 3.92
[2024-09-13 10:06] LABS: ALT (SGPT) 21 U/L (0-35); AST (SGOT) 35 U/L (14-36); Alkaline Phosphatase 113 U/L (38-126); Blood Urea Nitrogen 30 mg/dl (7-17); Carbon Dioxide 24 mmol/L (22-30); Chloride 103 mmol/L (98-107); Glucose 97 mg/dl (70-99); Iron 66 ug/dl (37-170); Potassium 5.1 mmol/L (3.5-5.1); Sodium 137 mmol/L (135-145); Total Bilirubin 0.4 mg/dl (0.2-1.3); Total Protein 8.4 g/dl (6.3-8.2); eGFR > 60.00
[2024-09-13 10:15] LABS: Percent Saturation 23 % (20-50); Total Iron Binding Capacity 281 ug/dl (265-497)
[2024-09-16 01:52] LABS: CA 27-29 12.5 U/mL (<=39.0)
== END ==
LOC: HWLAB 08:15
PROVIDERS: ATTENDING PHYSICIAN Internal Medicine Hematology & Oncology; REFERRING PHYSICIAN Internal Medicine Cardiovascular Disease
DX: C50.012 Malignant neoplasm of nipple and areola, left female breast (principal); D50.9 Iron deficiency anemia, unspecified; R13.10 Dysphagia, unspecified; I34.2 Nonrheumatic mitral (valve) stenosis; Z79.01 Long term (current) use of anticoagulants; Z95.2 Presence of prosthetic heart valve
CPT/HCPCS: 36415; 80053; 82728; 83540; 83550; 85025; 85610; 86300

== ENCOUNTER → 2024-10-06 07:14 | Outpatient (REF) | payer OTHER, SELFPAY ==
[2024-10-06 09:11] LABS: INR 3.12; PT 32.5 Sec (11.4-14.6)
[2024-10-06 09:13] LABS: % Basophils 2.4 % (0-2); % Eosinophils 3.1 % (0-6); % Immature Granulocytes 0.3 % (0-0.5); % Lymphocytes 8.8 % (20.5-51.1); % Neutrophils 76.4 % (42.2-75.2); Absolute Basophils 0.2 10^3/uL (0-0.2); Absolute Eosinophils 0.2 10^3/uL (0-0.7); Absolute Lymphocytes 0.6 10^3/uL (1.2-3.4); Absolute Monocytes 0.6 10^3/uL (0.1-0.6); Absolute Neutrophils 5.5 10^3/uL (1.4-6.5); Hematocrit 41.3 % (37.0-47.0); Hemoglobin 13.2 g/dL (12.0-16.0); Mean Corpuscular Hgb 28.1 pg (27.0-31.0); Mean Corpuscular Volume 88.1 fL (81.0-99.0); Nucleated Red Blood Cells % 0 %; Platelet Count 367 10^3/uL (130-400); Red Blood Cell Count 4.69 10^6/uL (4.20-5.40); Red Cell Dist. Width 15.7 % (11.5-14.5); White Blood Cell Count 7.1 10^3/uL (4.8-10.8)
[2024-10-06 09:32] LABS: ALT (SGPT) 25 U/L (0-35); AST (SGOT) 41 U/L (14-36); Albumin 4.2 g/dl (3.5-5.0); Alkaline Phosphatase 112 U/L (38-126); Blood Urea Nitrogen 30 mg/dl (7-17); Calcium 9.1 mg/dl (8.4-10.2); Carbon Dioxide 23 mmol/L (22-30); Chloride 101 mmol/L (98-107); Glucose 101 mg/dl (70-99); Iron 75 ug/dl (37-170); Potassium 5.3 mmol/L (3.5-5.1); Sodium 133 mmol/L (135-145); Total Bilirubin 0.4 mg/dl (0.2-1.3); eGFR 53.72
[2024-10-06 09:43] LABS: Percent Saturation 26 % (20-50); Total Iron Binding Capacity 285 ug/dl (265-497)
== END ==
LOC: HWLAB 07:14
PROVIDERS: ATTENDING PHYSICIAN Internal Medicine Hematology & Oncology; REFERRING PHYSICIAN Internal Medicine Cardiovascular Disease
DX: I34.2 Nonrheumatic mitral (valve) stenosis (principal); Z79.01 Long term (current) use of anticoagulants; Z95.2 Presence of prosthetic heart valve; C50.012 Malignant neoplasm of nipple and areola, left female breast; D50.9 Iron deficiency anemia, unspecified; R13.10 Dysphagia, unspecified
CPT/HCPCS: 36415; 80053; 82728; 83540; 83550; 85025; 85610

== ENCOUNTER 2024-10-24 16:56 | Inpatient (IN) | payer OTHER, SELFPAY ==
[2024-10-24] VITALS (26 sets, daily range): BP systolic 80–176; BP diastolic 37–87; BMI 19.0
[2024-10-24 11:34] LABS: COVID-19 Antigen Negative (Negative)
--- NOTE | 2024-10-24 12:48 | ED.GENMED ---
History of Present Illness
General
Chief Complaint: Blood Pressure Problem
Source: patient
Exam Limitations: none
Time Seen by Provider: 10/24/24 12:08
Nursing documentation reviewed up to this point in time: agreed with
History of Present Illness
History of Present Illness:
Patient is a 69-year-old female who presents to the ER for evaluation. Patient started with cough and right ear pain last night. She denies any fever or chills. She went to urgent care today and was sent here for evaluation of elevated blood
pressure. She reports her blood pressure was 206/86 while at urgent care. She does have a history of hypertension and takes lisinopril metoprolol at night and metoprolol in the morning. She has been taking all of her medications. She has been
taking cough drops but no other ffxg-qwj-wcojpap medicines. She does feel little short of breath especially with coughing. She is on Coumadin for mechanical valve. She denies any chest pain. She is currently undergoing treatment for breast cancer
Past History
Past History
ED Past Medical History: Cancer (Hodgkin's lymphoma, breast), CVA, GERD, HTN, Valvular disease and Hypothyroidism
ED Past Surgical History: Cardiac (Mechanical aortic valve replacement), , Orthopedic and Other (Thyroidectomy, splenectomy, mastectomy)
Patient has exhibited threatening behavior?: No
PSI?: No
Social History
Tobacco: Non-smoker
Alcohol: None
Drug: None
Personal:
Living: with family
Employment: Employed
Family History
Family History: Other (Noncontributory)
Review of Systems
Review of Systems
Allergies reviewed?: Yes
All Other Systems: ROS reviewed and negative except as documented in HPI and ROS
Constitutional: Reports no symptoms; Denies fever, fatigue or chills
EENT: Reports other (right ear pain )
Respiratory: Reports cough and trouble breathing
Cardiac: Reports no symptoms; Denies chest pain, palpitations or syncope
ABD/GI: Reports no symptoms
: Reports no symptoms
Musculoskeletal: Reports no symptoms
Skin: Reports no symptoms
Neurological: Reports no symptoms
Psychiatric: Reports no symptoms
Phy Exam
General Physical Exam
General Presentation: no apparent distress
General age: appears stated age
General Skin: warm and dry
General Habitus: normal
General Mental: alert
General Hydration: appears well hydrated
ENT Exam
ENT Exam: other (right TM red )
Cardiovascular Exam
Cardiovascular Exam: regular rate/rhythm, no murmur and normal peripheral pulses
Pulmonary Exam
Pulmonary Exam: other (slight exp wheezing )
Neurological Exam
Neurological Exam: alert and oriented x3
Musculoskeletal Exam
Musculoskeletal Exam: full ROM
Skin Exam
Skin Exam: normal color and warm/dry
Psychiatric Exam
Psychiatric Exam: normal mood/affect
Course
Orders/Labs/Results
Orders:
Orders
10/24/24 11:07
COVID-19 Antigen Urgent
Source: Nasal Swab
Influenza A+B Rapid Molecular Urgent
VANDANA Source: Nasal Swab
Specimen Description:
10/24/24 11:39
Pro-BNP [NT-proBNP] Urgent
Troponin I Urgent
Comment: ADD ON
10/24/24 12:49
CR Chest - 2 Views Urgent
Comment:
Reason For Exam: cough
10/24/24 12:59
Albuterol Nebs [Ventolin Nebules] 2.5 mg INH R NOW STA
10/24/24 13:05
Complete Blood Count/With Diff Urgent
Comprehensive Metabolic Panel Urgent
PT/INR [Prothrombin Time] Urgent
Serum Osmolality Urgent
Comment: ADD ON
TSH Reflex To Free T4 Urgent
Comment: ADD ON
10/24/24 14:16
Acetaminophen [Tylenol] 650 mg PO NOW STA
10/24/24 14:46
Azithromycin 500 mg/250 ml [Zithromax Infusion] 500 mg in 250 ml IV NOW
CefTRIAXone [Rocephin] 1,000 mg IV NOW STA
10/24/24 14:58
Furosemide [Lasix] 40 mg .ROUTE .STK-MED ONE
10/24/24 Dinner
Sodium, 2 Gram
At Your Request: Limited, Otr Refrigerated Cdl Truck Driver Required
Does patient need a safe tray?: No
Fluid Restriction: 1500 mL/day (50 oz)
10/24/24 15:02
Furosemide [Lasix] 40 mg IV NOW STA
10/24/24 15:16
Electrocardiogram (*1) Stat
Reason for Study: Other
Other Reason for Exam: chest pain
EKG- Treatment ONCE
10/24/24 15:39
Add On- LAB Urgent
Tests Added?: troponin
10/24/24 15:45
Ondansetron Injectable [Zofran] 4 mg .ROUTE .STK-MED ONE
10/24/24 15:47
Ondansetron Injectable [Zofran] 4 mg IV NOW STA
10/24/24 15:51
Add On- LAB Urgent
Tests Added?: serum osmo
10/24/24 15:52
Add On- LAB Routine
Tests Added?: TSH w/Reflex
10/24/24 16:37
Admit/Transfer Patient As Directed
Co-Sign Provider:
Level of Care: Inpatient admission
Assign to:: Telemetry
Physician / Group: Thuy
Diagnosis: CHF
Reason for Telemetry: Acute Heart Failure
Date to Stop Telemetry: 10/27/24
Time to Stop Telemetry: 11:00
Reason for Hospitalization: IV diuretics
Expected length of stay greater than two midnights?: Yes
ELOS- Estimated Length of Stay in days: 3
I certify the patient meets the requirements for IP care: Yes
PRN Pain Medication Management As Directed
May give lesser potent ordered pain med per pt: Yes
preference::
Protocol:: Medication orders for pain may be administered in a
manner that supports deferring to patient preference
when the pt is:
- Requesting an ordered lesser potent pain medication.
Least to most potent pain medications are defined
as: acetaminophen < NSAID < tramadol < opioids
(morphine, oxycodone, hydromorphone).
- Requesting a lesser dose of the same medication IF
ORDERED.
- Requesting a less intrusive route of administration
if both routes are prescribed by the provider (PO <
IV).
10/24/24 16:39
Code Status As Directed
Resuscitation Status: Full Code
10/24/24 16:43
Prochlorperazine [Compazine] 10 mg IV NOW STA
10/24/24 16:55
Procalcitonin Urgent
PCT Algorithmm Indication: Respiratory
10/24/24 17:28
HydrALAZINE [Apresoline] 5 mg IV Q4HPRN PRN
10/24/24 17:28
CARDIOLOGY CONSULT Routine
Consulting Provider: Donnell Dalal
Was physician already notified: Yes
HF DIETARY CONSULT Routine
HF EDUCATOR CONSULT Routine
Comment:
Activity As Directed
Activity Level: Out of Bed-Early Mobility
Intake/ Output As Directed
Frequency: Per unit guidelines
Patient Education As Directed
Type: CHF folder
Comment: give on admission. Document in Interdisciplinary Education record
Sleep Apnea Assessment by RN As Directed
Comment:
Physician Instructions:
Vital Signs As Directed
Frequency: Other
Additional Instructions:: Q12 or per unit guidelines if more frequent.
Weight As Directed
Frequency: Daily
Type of Scale: Standing Scale
Comment: Daily morning weight. If unable to stand, use balanced bed scale.
Weight As Directed
Frequency: Once
Type of Scale: Standing Scale
Comment: Upon Admission. If unable to stand, use balanced bed scale.
Pulse Ox/cont/shift [RESP] Routine
Quantity: 1
Special Instructions: Daily pulse oximetry at rest. If greater than 92% at rest also obtain pulse oximetry
while ambulating as tolerated.
10/24/24 18:00
Lisinopril [Zestril] 10 mg PO QPM
Warfarin [Coumadin] 2.5 mg PO QPM
10/24/24 19:37
Urine Osmolality Random [Osmolality, Random Urine] Urgent
Date Specimen was Collected: 10/24/24
Time Specimen was Collected: 19:17
Urine Sodium Urgent
Date Specimen was Collected: 10/24/24
Time Specimen was Collected: 19:17
10/24/24 20:00
Metoprolol Xl [Toprol Xl] 50 mg PO BID
10/24/24 22:00
Neomycin/Polymyxin/Hc [Cortisporin Otic Suspension] See Dose Instructions OTIC TID
10/25/24 03:18
Basic Metabolic Panel IN AM
Complete Blood Count/No Diff IN AM
Magnesium IN AM
Prothrombin Time IN AM
10/25/24 06:00
Levothyroxine [Synthroid] 88 mcg PO DAILY @ 0600
10/25/24 08:00
Furosemide [Lasix] 40 mg IV DAILY
Pantoprazole [Protonix] 40 mg PO DAILY
10/26/24 06:00
Basic Metabolic Panel IN AM
Prothrombin Time IN AM
10/27/24 06:00
Basic Metabolic Panel IN AM
Prothrombin Time IN AM
10/27/24 11:00
DC Protocol for Telemetry ONCE
10/28/24 06:00
Prothrombin Time IN AM
10/29/24 06:00
Prothrombin Time IN AM
Abnormal Lab Results
10/24/24 10/24/24
13:05 16:55
WBC 11.6 H 10^3/uL
(4.8-10.8)
RDW 15.1 H %
(11.5-14.5)
Abs Immat Gran (auto) 0.1 H 10^3/uL
(0-0.05)
Absolute Neuts (auto) 10.0 H 10^3/uL
(1.4-6.5)
Absolute Lymphs (auto) 0.6 L 10^3/uL
(1.2-3.4)
Absolute Monos (auto) 0.9 H 10^3/uL
(0.1-0.6)
Neutrophils % 85.6 H %
(42.2-75.2)
Lymphocytes % 4.9 L %
(20.5-51.1)
PT 34.4 H Sec
(11.4-14.6)
Sodium 129 L mmol/L
(135-145)
Chloride 97 L mmol/L
(98-107)
Carbon Dioxide 21 L mmol/L
(22-30)
BUN 22 H mg/dl
(7-17)
Glucose 100 H mg/dl
(70-99)
AST 48 H U/L
(14-36)
Alkaline Phosphatase 140 H U/L
(38-126)
Total Protein 8.3 H g/dl
(6.3-8.2)
Procalcitonin 0.27 H ng/ml
(0.0-0.25)
10/24/24 13:05
10/24/24 13:05
Vital Signs
Initial and Last Documented VS:
Initial Vital Signs
Temp Pulse Resp BP Pulse Ox
99.6 F 96 16 176/87 95
10/24/24 11:01 10/24/24 11:01 10/24/24 11:01 10/24/24 11:01 10/24/24 11:01
Last Documented Vital Signs
Temp Pulse Resp BP Pulse Ox
98 F 109 25 136/49 92
10/25/24 11:05 10/25/24 12:00 10/25/24 12:00 10/25/24 12:00 10/25/24 12:15
Assembly Cleaner consulted with Physician
Assembly Cleaner consulted with physician?: Yes
Name of Physician Consulted: Natanael
MDM/Problems Addressed
Differential Diagnosis Includes:
Not limited to cough, influenza, COVID, pneumonia, ear infection
MDM/Problems Addressed:
Patient is a 69-year-old female currently undergoing breast cancer treatment presents for cough chills right ear pain. Patient has obvious cough some wheezing on exam right ear red. no l/e swelling. Patient was given a nebulizer here. Patient is
negative for COVID flu. Chest x-ray does show moderate acute interstitial cardiogenic pulmonary edema and airspace consolidation in the right lower lobe atelectasis versus right lower lobe pneumonia.
BNP added.
IV Rocephin and Zithromax ordered. Patient has tolerated amoxicillin in the past. BNP elevated at 8270 sodium low at 129
Patient will require mission for pulmonary edema which is new onset/pneumonia/hyponatremia.patient denies any chest pain.
IV Lasix was ordered.
EKG ordered shows nonspecific ST changes questionable LVH no chest pain however with new onset CHF will order troponin reviewed with admitting hospitalist.
Chronic conditions affecting care:
cva/mechanical valve replacement
*Radiology
Radiology exam reviewed: radiology read reviewed
*Pulse Oximetry
Patient hypoxic: no
*EKG
Interpreted by ED Provider?: Yes
Interpretation: abnormal
Heart Rate: 107
Rate: tachycardiac
Rhythm: sinus
Ischemia: ST depression
*Critical Care Note
Total Time (30-74mins, 75-104mins- exclusive of procedures): Not Applicable
ED Attending Note
-
Portions of this chart may have been created with voice recognition software.� Occasional wrong word or��sound alike� substitutions may have occurred due to the inherent limitations of voice recognition software.
Discharge Plan
Departure
Patient Disposition: Admit
Date of Disposition: 10/24/24
Time of Disposition: 15:12
Admit to: Med/Surg
Admit to doctor: hospitalist
Presentation/result/management discussed w/ accepting MD/DO: Hospitalist
Patient with high blood pressure during this ER visit?: Yes
Condition: Fair
Covid-19: Negative COVID-19
Discharge Problem:
Pneumonia, Pulmonary edema, Acute hyponatremia
Interventions
Interventions:
*Risk Screen - Suicide Last Done: 10/24/24 16:05
*General Assessment Last Done: 10/24/24 16:05
*Neglect/Abuse Screening Last Done: 10/24/24 16:05
ED- Fall Risk Assessment Last Done: 10/24/24 12:50
*ED COVID-19 Vaccine History Last Done: 10/24/24 16:05
*Nursing Disposition Last Done: 10/24/24 23:22
ED- Cardiac Assessment Last Done: 10/24/24 16:05
ED- Neurological Assessment Last Done: 10/24/24 12:50
ED- Pulmonary Assessment Last Done: 10/24/24 16:05
Discharge Date and Time
Discharge Date/Time: 10/24/24 23:25
[2024-10-24] MEDS: VENTOLIN NEBULES 2.5 MG INH (13:10)
[2024-10-24 13:21] LABS: % Basophils 1.1 % (0-2); % Eosinophils 0.3 % (0-6); % Immature Granulocytes 0.4 % (0-0.5); % Lymphocytes 4.9 % (20.5-51.1); % Monocytes 7.7 % (1.7-9.3); % Neutrophils 85.6 % (42.2-75.2); Absolute Basophils 0.1 10^3/uL (0-0.2); Absolute Immature Granulocytes 0.1 10^3/uL (0-0.05); Absolute Lymphocytes 0.6 10^3/uL (1.2-3.4); Absolute Monocytes 0.9 10^3/uL (0.1-0.6); Hemoglobin 12.7 g/dL (12.0-16.0); Mean Corp Hgb Conc. 33.4 g/dL (33.0-37.0); Mean Corpuscular Volume 83.7 fL (81.0-99.0); Nucleated Red Blood Cells % 0 %; Platelet Count 361 10^3/uL (130-400); Red Blood Cell Count 4.54 10^6/uL (4.20-5.40); Red Cell Dist. Width 15.1 % (11.5-14.5); White Blood Cell Count 11.6 10^3/uL (4.8-10.8)
[2024-10-24 13:27] LABS: INR 3.44; PT 34.4 Sec (11.4-14.6)
[2024-10-24 13:28] LABS: ALT (SGPT) 29 U/L (0-35); AST (SGOT) 48 U/L (14-36); Albumin 3.7 g/dl (3.5-5.0); Alkaline Phosphatase 140 U/L (38-126); Blood Urea Nitrogen 22 mg/dl (7-17); Calcium 8.7 mg/dl (8.4-10.2); Carbon Dioxide 21 mmol/L (22-30); Chloride 97 mmol/L (98-107); Glucose 100 mg/dl (70-99); Sodium 129 mmol/L (135-145); Total Bilirubin 0.7 mg/dl (0.2-1.3); Total Protein 8.3 g/dl (6.3-8.2); eGFR > 60.00
[2024-10-24] MEDS: TYLENOL 650 MG PO (14:36)
[2024-10-24 14:53] LABS: NT-proBNP 8270 pg/ml
[2024-10-24] MEDS: ZITHROMAX INFUSION 250 IV (15:34)
[2024-10-24] MEDS: ROCEPHIN 1000 MG IV (15:34)
[2024-10-24] MEDS: LASIX 40 MG IV (15:34)
[2024-10-24] MEDS: ZOFRAN 4 MG IV (15:47)
--- NOTE | 2024-10-24 15:58 | HPS.HSE ---
Family Physician
-
Family Physician: Melanie Haynes MD
Chief Complaint
-
Cough and Right Ear Pain
History of Present Illness
Patient is a 69 y/o female past medical history of Aortic Stenosis s/p Mechanical Valve Replacement on Coumadin, Hodgkins' Lymphoma s/p XRT, Breast Cancer, Hypertension and Hypothyroidism who presents with cough and right ear pain. Patient
developed cough that is productive of large amount of thick clear mucus yesterday. Today she developed right ear pain which prompted her to go to urgent care. At urgent care BP was significantly elevated with SBP greater than 200, and she was sent
to the emergency department for evaluation. CXR in ED revealed pulmonary edema. Patient denies any prior history of heart failure. She denies chest pains, palpitations, or lower extremity edema.
Medical History
Past Medical History
Past Medical History: Reports Other
Additional Past Medical History:
Hodgkin's Lymphoma (1970s) - XRT
Hypothyroidism
Breast Cancer
Hypertension
Aortic Stenosis (secondary to XRT)
CVA - presumed embolic - 2021
Past Surgical History: Reports Other
Additional Past Surgical History:
Mechanical AVR (pediatric valve) - 2006
Splenectomy
Mastectomy
Thyroidectomy
Social History
Tobacco: Non-smoker
Alcohol: None
Drug: None
Family History
Family History: Not pertinent
Allergies / Home Medications
Allergies reflects when Allergies were last updated in [facility].
Home Medications with original date entered in [facility]
Allergy/Medication List:
Allergies
Allergy/AdvReac Type Severity Reaction Status Date / Time
palbociclib [From Ibrance] Allergy Tongue Verified 10/24/24 11:04
Swelling
Penicillins Allergy throat Verified 10/24/24 11:04
swelling-
tolertates
amoxicillin
tramadol Allergy throat Verified 10/24/24 11:04
swelling
Home Medications
fulvestrant 250 mg/5 mL intramuscular syringe 500 mg IM MONTHLY Cancer 07/16/21
levothyroxine 88 mcg tablet 88 mcg PO DAILY AT 0700 Thyroid 07/16/21
omeprazole 10 mg capsule,delayed release 20 mg PO DAILY Gastrointestinal issue 08/25/22
lisinopril 10 mg tablet 10 mg PO QPM Blood Pressure 10/28/23
warfarin 2.5 mg tablet 2.5 mg PO QPM Blood Clot Prevention/Tx 11/10/23
metoprolol succinate 50 mg tablet,extended release 24 hr 50 mg PO BID 10/24/24
Review of Systems
-
A 12 point ROS was completed and negative except as noted: Yes
Constitutional: Reports Other (Currently complaining of feeling very cold); Denies Fever
Respiratory: Reports Cough; Denies Trouble Breathing
Cardiac: Denies Chest Pain or Palpitations
Physical Exam
Vital Signs
Vital Signs
Temp Pulse Resp BP Pulse Ox
99.6 F 106 16 185/55 95
10/24/24 11:01 10/24/24 15:34 10/24/24 15:29 10/24/24 15:34 10/24/24 12:50
Physical Exam
General: Comfortable and Conversant
HEENT: Anicteric, Moist mucous membranes and Other (Left external auditory canal with few scratches noted; Right external auditory cancel with mild erythema, TM mild erythema and possible effusion, but no bulging noted)
Respiratory: Wheezes, Rales and Non Labored Respirations
Cardiac: S1/S2, Regular Rhythm, Murmur (Mechanical click consistent with AVR) and JVD
GI: Soft and Non Tender
Rectal: Deferred by Provider
Musculoskeletal: No Clubbing, No Cyanosis and No Edema
Skin: Warm and Dry
Neuro: Awake, Alert, Oriented and Nonfocal/grossly intact
Psych: Calm
Laboratory Results
-
10/24/24 13:05
01/05/25 13:05
Laboratory Results
PT 34.4 Sec (11.4-14.6) H 10/24/24 13:05
INR 3.44 10/24/24 13:05
Total Bilirubin 0.7 mg/dl (0.2-1.3) 10/24/24 13:05
AST 48 U/L (14-36) H 10/24/24 13:05
ALT 29 U/L (0-35) 10/24/24 13:05
Alkaline Phosphatase 140 U/L (38-126) H 10/24/24 13:05
Troponin I Cancelled 10/24/24 15:34
Chest X-ray:
1. Moderate acute interstitial cardiogenic pulmonary edema.
2. Small bilateral pleural effusions.
3. Mild subpleural airspace consolidation in the basilar right lower lobe. Diagnostic possibilities are (1) compressive subsegmental atelectasis or (2) right lower lobe pneumonia
Data Reviewed
-
Diagnostic Radiology: Report Reviewed by me
Lab Data: Labs Reviewed by me
Impression/Plan
-
New Onset Heart Failure
-Consult Cardiology
-Continue Lasix 40mg IV Daily
-Check Echo
-Monitor Is&Os and Daily Weights
Uncontrolled Hypertension
-BP improving following dose of Lasix given in ED
-Continue lisinopril and metoprolol
-Add hydralazine prn
Hyponatremia, likely hypervolemic in setting of heart failure
-Check urine sodium, urine osmo and serum osmo
-Check TSH and AM cortisol
-Continue fluid restriction
Right Ear Pain, mild/moderate otitis externa
-Continue Cortisporin drops
Mild Right Lower Lobe Airspace Consolidation on CXR, possibly atelectasis vs pneumonia
-Patient given azithromycin and ceftriaxone in ED
-Check Procalcitonin - If negative hold on further antibiotics
Aortic Stenosis s/p Mechanical Aortic Valve Replacement
-Continue Coumadin
-Monitor INR Daily
Hypothyroidism
-Continue levothyroxine
Hx Breast Cancer
-Patient maintained on fulvestrant as outpatient
Hx Hodgkin' Lymphoma s/p XRT
DVT proph: Coumadin
Code Status: Full Code
[2024-10-24 16:18] LABS: Troponin I 0.014 ng/ml
[2024-10-24] MEDS: COMPAZINE 10 MG IV (16:51)
[2024-10-24 17:04] LABS: Osmolality Serum 276 mOsm/kg (275-300)
[2024-10-24 17:37] LABS: Procalcitonin 0.27 ng/ml (0.0-0.25)
[2024-10-24 17:48] LABS: TSH Reflex To Free T4 2.35 uIU/ml (0.47-4.68)
[2024-10-24 18:14] LABS: Troponin I 0.016 ng/ml
--- NOTE | 2024-10-24 18:18 | CON.CAR ---
Consultation
Consultation Request
Date/Time Consultation Requested: 10/24/2024 17: 00
Date/Time Consultation Performed: 10/24/2024 17: 30
Requesting Provider: Felix
Performing Provider: Mulugeta
Reason for Consultation: CHF
Medical History
-
Chief Complaint: Evaluation for hypertension
History of Present Illness:
HPI: Chanda has past medical history of recurrent GI bleeding, CVA, AVR, Hodgkin lymphoma, breast cancer, hypertension, and hypothyroidism who presented to ER with symptomatic anemia and GI bleed. She was admitted with GI bleed in November
2023. She had cough and right ear pain. She went to urgent care and was sent for evaluation ER if the blood pressure was 206/86. She has had some shortness of breath with coughing. Chest x-ray consistent with CHF and cardiology consulted. Of
note patient received IV Lasix and blood pressure dropped to 87 systolic. She then had EKG changes with ST depression noted. She denies chest pain or shortness of breath at present. Troponins are negative x 2
PMH:
Recent admission 11/10/2023 to 11/11/2023 for GIB
GIB w/ transfusion 08/2022 after starting Ribociclib
Right MCA stroke with M2 occlusion in setting of subtherapeutic INR while off Coumadin 07/15/22
patient bridged with Lovenox prior to colonoscopy 07/10/21, but no Lovenox bridge post-colonoscopy
Mechanical AVR pediatric size 2006
Chronic warfarin OAC
Mitral regurgitation with mitral stenosis
Tricuspid regurgitation with pulmonary hypertension
h/o CVA 2005; recurrent right MCA stroke secondary to M2 occlusion in setting of subtherapeutic INR 06/2022
h/o Hodgkin's lymphoma treated with radiation to left neck and pelvis 1973
h/o breast CA 2018 treated with B/L mastectomy, patient refused chemotherapy and radiation, but eventually agreeable to Tamoxifen
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
Recurrence of breast cancer 2021 - did not tolerate Ibrance or Ribociclib
HTN
Hypothyroidism
Past Medical History
Past Medical History: Other (In HPI)
Past Surgical History: Cardiac ([facility] [place] mechanical aortic valve), and Other (Bilateral mastectomy 2018, thyroidectomy, splenectomy)
Social History
Tobacco: Former Smoker
Alcohol: Occasional
Drug: None
Personal:
Living: With Family
Family History
Family History: CAD and Cancer
Allergies / Home Medications
Allergy/AdvReac Type Severity Reaction Status Date / Time
palbociclib [From [facility]] Allergy Tongue Verified 10/24/24 11:04
Swelling
Penicillins Allergy throat Verified 10/24/24 11:04
swelling-
tolertates
amoxicillin
tramadol Allergy throat Verified 10/24/24 11:04
swelling
�Medication �Instructions �Recorded �Confirmed �Type
fulvestrant 250 mg/5 mL 500 mg IM MONTHLY Cancer 07/16/21 10/24/24 History
intramuscular syringe
levothyroxine 88 mcg tablet 88 mcg PO DAILY AT 0700 Thyroid 07/16/21 10/24/24 History
omeprazole 10 mg capsule,delayed 20 mg PO DAILY Gastrointestinal 08/25/22 10/24/24 History
release issue
lisinopril 10 mg tablet 10 mg PO QPM Blood Pressure 10/28/23 10/24/24 History
warfarin 2.5 mg tablet 2.5 mg PO QPM Blood Clot 11/10/23 10/24/24 History
Prevention/Tx
metoprolol succinate 50 mg 50 mg PO BID 10/24/24 10/24/24 History
tablet,extended release 24 hr
Review of Systems
-
History Source: Patient
All other systems: Negative unless noted
Constitutional: No Symptoms
EENT: Other (Right ear pain)
Respiratory: Cough and Trouble Breathing
Cardiac: No Symptoms
Abdomen/GI: No Symptoms
: No Symptoms
Musculoskeletal: No Symptoms
Skin: No Symptoms
Neurological: No Symptoms
Endocrine: No Symptoms
Hematologic/Lymphatic: No Symptoms
Physical Exam
Vital Signs
Temp Pulse Resp BP Pulse Ox
98.8 F 91 19 86/40 94
10/24/24 17:26 10/24/24 18:00 10/24/24 18:00 10/24/24 18:00 10/24/24 18:00
Lab Results
10/24/24 13:05
10/24/24 13:05
Troponin I 0.016 ng/ml 10/24/24 17:44
Iet-S-Xgliyladqyd Pept 8270 pg/ml 10/24/24 11:39
General: Well developed, well nourished in NAD.
Neck: Supple, no JVD, HJR, carotids +2 B/L, no bruits bilaterally.
Heart: Non displaced PMI, RRR, 2/6 basal systolic murmur, No S3, S4, no rubs.
Lungs: Scattered rhonchi
Abdomen: Normal bowel sounds, soft, non-tender, non-distended.
Extremities: No clubbing, cyanosis or edema bilaterally.
Neuro: Grossly nonfocal, awake, alert and oriented x3.
Impression / Plan
-
PCP: Dr. Haynes
Cardiology: Dr. Michelle Justice
Oncology: Dr. Khan at [facility]/Onc
Impression:
Acute diastolic CHF
Abnormal ECG with lateral ST depression and negative troponin x 2
Admission for GI bleed in October 2023 in November 2023
GIB w/ transfusion 08/2022 after starting Ribociclib
Right MCA stroke with M2 occlusion in setting of subtherapeutic INR while off Coumadin 07/15/22
patient bridged with Lovenox prior to colonoscopy 07/10/21, but no Lovenox bridge post-colonoscopyMechanical AVR pediatric size 2006
Chronic warfarin OAC
Mitral regurgitation with mitral stenosis
Tricuspid regurgitation with pulmonary hypertension
h/o CVA 2005; recurrent right MCA stroke secondary to M2 occlusion in setting of subtherapeutic INR 06/2022
h/o Hodgkin's lymphoma treated with radiation to left neck and pelvis 1973
h/o breast CA 2017 treated with B/L mastectomy, patient refused chemotherapy and radiation, but eventually agreeable to Tamoxifen
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
Recurrence of breast cancer 2021 - did not tolerate Ibrance or Ribociclib
Labile HTN
Hypothyroidism
Lexiscan nuclear stress test 11/28/2021:�Positive EKG.� Perfusion imaging with small inferoseptal suggestive of significant bowel artifact vs ischemia
Echo 08/31/19: EF 55-60%, grade II diastolic dysfunction, moderate MR, mechanical aortic valve mean gradient 8 mmHg
Echo 07/16/21:�EF 70-75%, mild to mod MS with mean gradient 10 mmHg, [place] AVR mean gradient 13, PAP 43 mmHg
Echo 08/26/2022: Hyperdynamic LV.� EF 70 to 75%.� Mild to moderate MS peak/mean gradient 20/7 mmHg.� Moderate to severe MR.� Well-seated mechanical AVR with peak/mean gradient 11/6 mmHg without regurgitation.� Moderate to severe TR.� Moderate
pulmonary hypertension with PAP 50 to 55 mmHg.
Echo 02/10/2023: EF 60 to 65%.� Moderate mitral stenosis mean gradient 11 with severe MR.� Well-seated mechanical AVR with peak/mean gradient 15/8 mmHg, mild to moderate TR, mild pulmonary hypertension with PAP 45 to 48 mmHg.
Echo 11/19/2023: EF 70-75%, moderate MS with peak/mean gradients 15/8 mmHg, moderate MR, mechanical prosthetic AVR with peak/mean gradients 16/9 mmHg, trace AR, moderate TR, estimated PAP 30-35 mmHg
Plan:
Patient presented with complaints of cough and ear pain. Chest x-ray and proBNP consistent with CHF.
After receiving IV Lasix patient's blood pressure dropped to 87 systolic and became diaphoretic.
There is no chest pain but are lateral ST depression.
Troponin so far is negative x 2. Will continue to track troponins
Of note INR is 3.4 and will need vitamin K if cath is indicated.
Patient is known to have an undersized aortic valve and perhaps hypotension may cause EKG changes based on her aortic valve
Discussed with patient and at bedside as well as primary service
Data Reviewed
-
EKG: Tracing Personally Visualized and interpreted
Radiology: Report Reviewed by me
Medical Tests (Nuc Med, Echo etc): Report Reviewed by me
Labs: Labs Reviewed by me
Old Records: Reviewed
--- NOTE | 2024-10-24 18:35 | W.PN.UPDATE ---
Update Note
Progress Note Update
This note serves as an addendum to the H&P by Hayley Cade on October 24, 2024.
History of Presenting Illness
69 y/o female past medical history of Aortic Stenosis s/p Mechanical Valve Replacement on Coumadin, Hodgkins' Lymphoma s/p XRT, Breast Cancer, Hypertension and Hypothyroidism who presents with cough and right ear pain. Patient developed cough that
is productive of large amount of thick clear mucus yesterday. Today she developed right ear pain which prompted her to go to urgent care. At urgent care BP was significantly elevated with SBP greater than 200, and she was sent to the emergency
department for evaluation. CXR in the emergency department revealed pulmonary edema. Patient denied any prior history of heart failure. She denied chest pains, SOB, palpitations, or lower extremity edema.
Physical Exam
General: Comfortable and Conversant
HEENT: Moist mucous membranes and Other (Left external auditory canal with few scratches noted; Right external auditory cancel with mild erythema, TM mild erythema and possible effusion, but no bulging noted)
Respiratory: Wheezes, Rales and Non Labored Respirations
Cardiac: S1/S2, Regular Rhythm, Murmur (Mechanical click consistent with AVR) and JVD
GI: Soft and Non Tender. Positive bowel sounds.
Musculoskeletal: No Cyanosis and No Edema
Skin: Warm and Dry
Neuro: Awake, Alert, Oriented and Nonfocal/grossly intact
Psych: Calm
Assessment/Plan
Hypotension
-Initial blood pressure was in the 180s, but after Lasix dropped to 80s systolic, with no urine output as of yet
-Start Levophed
-Careful to avoid high blood pressure which can happen with the Levophed
-Patient needs to go to the ICU given this and also given concern for HTN emergency with CHF, pulmonary edema
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
Concern for Hypertensive Emergency
Uncontrolled Hypertension
-Patient was systolic 200+ mmHg in urgent care earlier today, and then 180s systolic in the ER
-BP dropped significantly following Furosemide in the ER today
-Hold oral antihypertensives for now
-If blood pressure rises significantly again, may need careful titration with an antihypertensive drip but patient's blood pressure seems labile so need to be careful
New Onset Heart Failure
-Consult Cardiology
-Continue Lasix 40mg IV Daily
-Check Echo
-Monitor Is&Os and Daily Weights
-Trend troponins -- if needs cardiac cath, will need Vitamin K
Hyponatremia, likely hypervolemic in setting of heart failure
-Check urine sodium, urine osmo and serum osmo
-Check TSH and AM cortisol
-Continue fluid restriction
Right Ear Pain, mild/moderate otitis externa
-Continue Cortisporin drops
Mild Right Lower Lobe Airspace Consolidation on CXR, possibly atelectasis vs pneumonia
-Patient given azithromycin and ceftriaxone in ED - continue
Aortic Stenosis s/p Mechanical Aortic Valve Replacement
-Continue Coumadin
-Monitor INR Daily
Hypothyroidism
-Continue levothyroxine
Hx Breast Cancer
-Patient maintained on fulvestrant as outpatient
Hx Hodgkin' Lymphoma s/p XRT
DVT proph: Coumadin
Code Status: Full Code
Concern for hypertensive emergency followed by severely low blood pressure needing admission to the ICU is a high risk encounter.
[2024-10-24] MEDS: LEVOPHED 250 IV (18:57)
[2024-10-24 19:52] LABS: Osmolality Urine 403 mOsm/kg (300-900)
[2024-10-24 20:06] LABS: % Basophils 0.5 % (0-2); % Eosinophils 0.3 % (0-6); % Immature Granulocytes 0.5 % (0-0.5); % Lymphocytes 2.4 % (20.5-51.1); % Monocytes 7.1 % (1.7-9.3); % Neutrophils 89.2 % (42.2-75.2); Absolute Basophils 0.1 10^3/uL (0-0.2); Absolute Eosinophils 0.1 10^3/uL (0-0.7); Absolute Immature Granulocytes 0.1 10^3/uL (0-0.05); Absolute Lymphocytes 0.5 10^3/uL (1.2-3.4); Absolute Monocytes 1.3 10^3/uL (0.1-0.6); Absolute Neutrophils 16.6 10^3/uL (1.4-6.5); Hematocrit 34.8 % (37.0-47.0); Hemoglobin 12.1 g/dL (12.0-16.0); Mean Corp Hgb Conc. 34.8 g/dL (33.0-37.0); Mean Corpuscular Hgb 28.7 pg (27.0-31.0); Mean Corpuscular Volume 82.7 fL (81.0-99.0); Mean Platelet Volume 9.2 fL (7.4-10.4); Nucleated Red Blood Cells % 0 %; Platelet Count 302 10^3/uL (130-400); Red Blood Cell Count 4.21 10^6/uL (4.20-5.40); White Blood Cell Count 18.6 10^3/uL (4.8-10.8)
[2024-10-24 20:11] LABS: Urine Sodium 121 mmol/L (30-90)
[2024-10-24 20:42] LABS: ALT (SGPT) 30 U/L (0-35); AST (SGOT) 54 U/L (14-36); Albumin 3.3 g/dl (3.5-5.0); Alkaline Phosphatase 123 U/L (38-126); Blood Urea Nitrogen 25 mg/dl (7-17); Calcium 8.3 mg/dl (8.4-10.2); Carbon Dioxide 21 mmol/L (22-30); Chloride 97 mmol/L (98-107); Estimated Creatinine Clearance 28 ml/min; Glucose 111 mg/dl (70-99); Sodium 128 mmol/L (135-145); Total Protein 7.6 g/dl (6.3-8.2); eGFR 48.39
[2024-10-24 20:43] LABS: Troponin I 0.098 ng/ml
[2024-10-24 20:54] LABS: Potassium 3.7 mmol/L (3.5-5.1)
[2024-10-24] MEDS: CORTISPORIN OTIC SUSPENSION 4 DROP OTIC (22:11)
[2024-10-25] VITALS (29 sets, daily range): BP systolic 74–166; BP diastolic 35–71; BMI 19.4
--- NOTE | 2024-10-25 00:32 | PTCARENOTE ---
Pt received from ED RN. Pt on 2L 02. NSR on monitor. received on 2 mcg/min, 7.5 ml/hr of levophed to maintained a sbp>90. current SBP 113. Admission questions completed. CHG bath done, lynn care preformed. Call light in reach.
[2024-10-25 03:34] LABS: Hematocrit 34.2 % (37.0-47.0); Hemoglobin 11.6 g/dL (12.0-16.0); Mean Corp Hgb Conc. 33.9 g/dL (33.0-37.0); Mean Corpuscular Hgb 28.2 pg (27.0-31.0); Mean Platelet Volume 10.2 fL (7.4-10.4); Platelet Count 322 10^3/uL (130-400); Red Blood Cell Count 4.12 10^6/uL (4.20-5.40); Red Cell Dist. Width 15.1 % (11.5-14.5); White Blood Cell Count 22.8 10^3/uL (4.8-10.8)
[2024-10-25 03:47] LABS: PT 37.8 Sec (11.4-14.6)
[2024-10-25 03:59] LABS: Blood Urea Nitrogen 27 mg/dl (7-17); Carbon Dioxide 23 mmol/L (22-30); Chloride 96 mmol/L (98-107); Estimated Creatinine Clearance 26 ml/min; Glucose 136 mg/dl (70-99); Magnesium 1.5 mg/dl (1.6-2.3); Sodium 127 mmol/L (135-145); eGFR 43.96
[2024-10-25 04:52] LABS: Cortisol, Random 19.5 ug/dl
[2024-10-25] MEDS: DEXTROSE 50% SYRINGE 25 GRAMS IV (05:19)
[2024-10-25] MEDS: NOVOLIN R 0.1 UNITS IV (05:21)
[2024-10-25 05:23] LABS: Glucose - Point of Care 108 mg/dl (70-99)
[2024-10-25] MEDS: MAGNESIUM SULFATE 102 GRAMS IV (05:33)
[2024-10-25] MEDS: SYNTHROID 88 MCG PO (05:59)
[2024-10-25 06:40] LABS: Glucose - Point of Care 161 mg/dl (70-99)
[2024-10-25 07:41] LABS: Glucose - Point of Care 78 mg/dl (70-99)
[2024-10-25 09:01] LABS: Glucose - Point of Care 107 mg/dl (70-99)
--- NOTE | 2024-10-25 09:19 | W.PN.CARDCBS ---
Today's Communication / Plan
-
Ruled in for nstemi
Check echo
Hold Coumadin and consider catheterization
Hold off on further Lasix given hypotension requiring pressors
Unclear if could be pneumonic process as well to explain hypoxia
Impression / Plan
-
PCP: Dr. Haynes
Cardiology: Dr. Michelle Justice
Oncology: Dr. Khan at [facility]
Impression:
Non-STEMI with peak troponin of 1.[address] changes which have resolved
Acute diastolic CHF
Abnormal ECG with lateral ST depression and negative troponin x 2
Admission for GI bleed in October 2023 in November 2023
GIB w/ transfusion 08/2022 after starting Ribociclib
Right MCA stroke with M2 occlusion in setting of subtherapeutic INR while off Coumadin 07/15/22
patient bridged with Lovenox prior to colonoscopy 07/10/21, but no Lovenox bridge post-colonoscopy
Mechanical AVR pediatric size 2006
Chronic warfarin OAC
Mitral regurgitation with mitral stenosis
Tricuspid regurgitation with pulmonary hypertension
h/o CVA 2005; recurrent right MCA stroke secondary to M2 occlusion in setting of subtherapeutic INR 06/2022
h/o Hodgkin's lymphoma treated with radiation to left neck and pelvis 1973
h/o breast CA 2018 treated with B/L mastectomy, patient refused chemotherapy and radiation, but eventually agreeable to Tamoxifen
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
Recurrence of breast cancer 2021 - did not tolerate Ibrance or Ribociclib
Labile HTN
Hypothyroidism
Lexiscan nuclear stress test 11/28/2021:�Positive EKG.� Perfusion imaging with small inferoseptal suggestive of significant bowel artifact vs ischemia
Echo 08/31/19: EF 55-60%, grade II diastolic dysfunction, moderate MR, mechanical aortic valve mean gradient 8 mmHg
Echo 07/16/21:�EF 70-75%, mild to mod MS with mean gradient 10 mmHg, [place] AVR mean gradient 13, PAP 43 mmHg
Echo 08/26/2022: Hyperdynamic LV.� EF 70 to 75%.� Mild to moderate MS peak/mean gradient 20/7 mmHg.� Moderate to severe MR.� Well-seated mechanical AVR with peak/mean gradient 11/6 mmHg without regurgitation.� Moderate to severe TR.� Moderate
pulmonary hypertension with PAP 50 to 55 mmHg.
Echo 02/10/2023: EF 60 to 65%.� Moderate mitral stenosis mean gradient 11 with severe MR.� Well-seated mechanical AVR with peak/mean gradient 15/8 mmHg, mild to moderate TR, mild pulmonary hypertension with PAP 45 to 48 mmHg.
Echo 11/19/2023: EF 70-75%, moderate MS with peak/mean gradients 15/8 mmHg, moderate MR, mechanical prosthetic AVR with peak/mean gradients 16/9 mmHg, trace AR, moderate TR, estimated PAP 30-35 mmHg
Plan:
Initially felt to have CHF
Was given IV Lasix and became hypotensive with diaphoresis and EKG changes
There was no chest pain but is ruled in for an FL with troponin of 1.2
It is unclear how much patient undersized AVR could be a cause of ischemia
Will check echocardiogram
Will hold Coumadin for now and would like to give vitamin K with mechanical AVR as will be difficult to restart anticoagulation
Will need to consider cardiac catheterization but will continue to follow troponins
Reluctant to give more Lasix as now requiring Levophed which is trying to wean off
Unclear if there could be a pneumonic process to explain hypoxia as patient has had significant cough and has elevated white count
Discussed with nursing
Progress Note - Lens Assorter
Subjective
Date of Service: October 25, 2024
No chest pain or shortness of breath. Continues with cough
Objective
Labs:
10/25/24 03:18
Labs
Hgb 11.6 g/dL (12.0-16.0) L 10/25/24 03:18
Hct 34.2 % (37.0-47.0) L 10/25/24 03:18
Plt Count 322 10^3/uL (130-400) 10/25/24 03:18
PT 37.8 Sec (11.4-14.6) H 10/25/24 03:18
INR 3.90 10/25/24 03:18
Sodium 127 mmol/L (135-145) L 10/25/24 03:18
Potassium 6.0 mmol/L (3.5-5.1) H D 10/25/24 03:18
BUN 27 mg/dl (7-17) H 10/25/24 03:18
Creatinine 1.3 mg/dL (0.6-1.0) H 10/25/24 03:18
Glucose 136 mg/dl (70-99) H 10/25/24 03:18
Troponins
10/24/24 10/24/24 10/24/24
11:39 15:34 17:44
Troponin I 0.014 Cancelled 0.016
10/24/24 10/25/24
20:01 03:18
Troponin I 0.098 H* D 1.200 H* D
Vital Signs and I&O:
Vital Signs
Temp Pulse Resp BP Pulse Ox
98.1 F 92 19 124/41 96
10/25/24 06:47 10/25/24 07:15 10/25/24 07:15 10/25/24 07:00 10/25/24 07:15
Vital Signs
Temp Pulse Resp BP Pulse Ox
98.1 F 92 19 124/41 96
10/25/24 06:47 10/25/24 07:15 10/25/24 07:15 10/25/24 07:00 10/25/24 07:15
Intake & Output
10/23/24 10/24/24 10/25/24 10/26/24
06:59 06:59 06:59 06:59
Output Total 450 / 450
Balance -450 / -450
Physical Exam
Physical Exam
General: Well developed, well nourished in NAD.
Neck: Supple, no JVD, HJR, carotids +2 B/L, no bruits bilaterally.
Heart: Non displaced PMI, RRR, 2/6 basal systolic murmur, No S3, S4, no rubs.
Lungs: Scattered rhonchi
Extremities: No clubbing, cyanosis or edema bilaterally.
Neuro: Grossly nonfocal, awake, alert and oriented x3.
[2024-10-25] MEDS: PROTONIX 40 MG PO (09:39)
[2024-10-25] MEDS: ZITHROMAX 500 MG PO (09:39)
[2024-10-25 10:24] LABS: Potassium 4.8 mmol/L (3.5-5.1)
[2024-10-25] MEDS: CORTISPORIN OTIC SUSPENSION 1 DROP OTIC ×2 (10:47→22:30)
--- NOTE | 2024-10-25 11:13 | PTCARENOTE ---
Rec'd pt this AM. Able to wean to room air. O2 sat 98%. Off levo, BP 122/56. OOB to chair, lynn removed per protocol. ST on tele. Potassium improved to 4.8. Updated Dr. Dalal and Dr. Payan.
[2024-10-25 11:15] LABS: Glucose - Point of Care 104 mg/dl (70-99)
[2024-10-25] MEDS: STERILE WATER FOR INJECTION 10 ML IV (13:33)
[2024-10-25] MEDS: ROCEPHIN 1000 MG IV (13:33)
--- NOTE | 2024-10-25 16:40 | CM ---
Patient with Dx NSTEMI. Room air. Receiving IV Abx. Per nurse, Levophed weaned off.
Met with patient who resides in a 2 story house with 1 step garage entrance.
The patient has been independent in ADLs and ambulation.
She is active and drives.
The patient shares that she is currently going to her oncology office for fulvestrant infusions.
works from home and can assist as needed.
Patient says she has many friends who are retired nurses who could be available to help her as needed.
The patient has no DME.
Prior VN - can't remember agency
No prior SNF.
PCP - Melanie Haynes
Pharmacy - [facility]
No CM d/c needs identified.
Plan home.
[2024-10-25] MEDS: CORTISPORIN OTIC SUSPENSION 4 DROP OTIC (18:41)
[2024-10-25 19:21] LABS: Troponin I 0.809 ng/ml
--- NOTE | 2024-10-25 19:35 | W.PN.HOSP.TC ---
Today's Communication/Plan
-
NSTEMI
Hold Coumadin
Continue to trend troponins
Assessment / Plan
Assessment / Plan
Physical Exam
General: Comfortable and Conversant
HEENT: Moist mucous membranes and Other (Left external auditory canal with few scratches noted; Right external auditory cancel with mild erythema, TM mild erythema and possible effusion, but no bulging noted)
Respiratory: Wheezes, Rales and Non Labored Respirations
Cardiac: S1/S2, Regular Rhythm, Murmur (Mechanical click consistent with AVR) and JVD
GI: Soft and Non Tender. Positive bowel sounds.
Musculoskeletal: No Cyanosis and No Edema
Skin: Warm and Dry
Neuro: Awake, Alert, Oriented and Nonfocal/grossly intact
Psych: Calm
Assessment/Plan
NSTEMI
-Hold Coumadin and consider catheterization
-Hold off on further Lasix given hypotension requiring pressors
-Follow troponins
Hypotension
-Initial blood pressure was in the 180s, but after Lasix dropped to 80s systolic, with no urine output as of yet
-Weaned off Levophed
Concern for Hypertensive Emergency
Uncontrolled Hypertension
-Patient was systolic 200+ mmHg in urgent care earlier today, and then 180s systolic in the ER
-BP dropped significantly following Furosemide in the ER
-Hold oral antihypertensives for now
New Onset Heart Failure
-Consult Cardiology
-Hold Lasix given hypotension above
-Check Echo
-Monitor Is&Os and Daily Weights
-Trend troponins -- if needs cardiac cath, will need Vitamin K
Hyponatremia, likely hypervolemic in setting of heart failure
-Studies suggest possibly CHF/fluid overload as the cause vs. [place]
-TSH normal and AM cortisol 19.5
-Continue PO fluid restriction
Right Ear Pain, mild/moderate otitis externa
-Continue Cortisporin drops
Mild Right Lower Lobe Airspace Consolidation on CXR, possibly atelectasis vs pneumonia
-Patient given azithromycin and ceftriaxone in ED - continue
Aortic Stenosis s/p Mechanical Aortic Valve Replacement
-Continue Coumadin
-Monitor INR Daily
Hypothyroidism
-Continue levothyroxine
Hx Breast Cancer
-Patient maintained on fulvestrant as outpatient
Hx Hodgkin' Lymphoma s/p XRT
DVT Prophylaxis: Coumadin
Code Status: Full Code
Anticipated Discharge: > 48 hours
Subjective/Interval History
-
Date of Service: October 25, 2024
Patient was seen and examined. She denied any chest pain or shortness of breath.
Objective Data
-
Labs:
Laboratory Results
10/25/24
09:51
Potassium 4.8
Vital Signs:
Vital Signs
Temp Pulse Resp BP Pulse Ox
98.9 F 109 25 136/49 92
10/25/24 15:05 10/25/24 12:00 10/25/24 12:00 10/25/24 12:00 10/25/24 12:15
I&O
10/24/24 10/25/24 10/26/24
06:59 06:59 06:59
Output Total 450 / 450 400 / 400
Balance -450 / -450 -400 / -400
[2024-10-25] MEDS: ROBITUSSIN DM 5 ML PO (22:58)
[2024-10-25 23:06] LABS: Blood Urea Nitrogen 26 mg/dl (7-17); Calcium 8.3 mg/dl (8.4-10.2); Carbon Dioxide 23 mmol/L (22-30); Chloride 96 mmol/L (98-107); Estimated Creatinine Clearance 30 ml/min; Glucose 97 mg/dl (70-99); Potassium 5.2 mmol/L (3.5-5.1); Sodium 126 mmol/L (135-145); eGFR 53.72
[2024-10-25 23:34] LABS: Troponin I 0.675 ng/ml
[2024-10-26] VITALS (11 sets, daily range): BP systolic 118–201; BP diastolic 48–60; BMI 18.9
--- NOTE | 2024-10-26 03:22 | PTCARENOTE ---
Pt having complaints of continuing cough, night ADMEASURER made aware order placed for Robitussin DM. Pt stating she had positive results and was able to get some rest over night. Assessment care and vitals as charted.
[2024-10-26] MEDS: SYNTHROID 88 MCG PO (04:51)
[2024-10-26] MEDS: ROBITUSSIN DM 5 ML PO ×2 (04:51→15:34)
[2024-10-26 05:22] LABS: Hematocrit 33.7 % (37.0-47.0); Hemoglobin 11.1 g/dL (12.0-16.0); Mean Corp Hgb Conc. 32.9 g/dL (33.0-37.0); Mean Corpuscular Hgb 28.2 pg (27.0-31.0); Mean Corpuscular Volume 85.8 fL (81.0-99.0); Mean Platelet Volume 9.9 fL (7.4-10.4); Platelet Count 288 10^3/uL (130-400); Red Blood Cell Count 3.93 10^6/uL (4.20-5.40); Red Cell Dist. Width 15.2 % (11.5-14.5); White Blood Cell Count 17.9 10^3/uL (4.8-10.8)
[2024-10-26 05:31] LABS: INR 2.68; PT 28.5 Sec (11.4-14.6)
[2024-10-26 05:52] LABS: Blood Urea Nitrogen 27 mg/dl (7-17); Calcium 8.6 mg/dl (8.4-10.2); Carbon Dioxide 21 mmol/L (22-30); Chloride 98 mmol/L (98-107); Estimated Creatinine Clearance 30 ml/min; Glucose 95 mg/dl (70-99); Magnesium 2.1 mg/dl (1.6-2.3); Potassium 5.4 mmol/L (3.5-5.1); Sodium 129 mmol/L (135-145); eGFR 53.72
[2024-10-26 05:57] LABS: Troponin I 0.584 ng/ml
[2024-10-26] MEDS: PROTONIX 40 MG PO (08:25)
[2024-10-26] MEDS: CORTISPORIN OTIC SUSPENSION 1 DROP OTIC ×2 (08:25→15:22)
[2024-10-26] MEDS: ZITHROMAX 500 MG PO (08:25)
--- NOTE | 2024-10-26 09:31 | W.PN.CARDCBS ---
Today's Communication / Plan
-
Start Lasix 40 mg p.o. daily and watch for hypotension.
Start Toprol 12.5 mg daily.
Continue to hold Coumadin and start heparin.
Plan will be for cardiac catheterization this admission once INR below 1.5.
Continue antibiotics.
Impression / Plan
-
PCP: Dr. Haynes
Cardiology: Dr. Mihcelle Justice
Oncology: Dr. Khan at [facility]
Impression:
Non-STEMI with peak troponin of 1.[address] changes which have resolved
Acute diastolic CHF
Abnormal ECG with lateral ST depression and negative troponin x 2
Admission for GI bleed in October 2023 in November 2023
GIB w/ transfusion 08/2022 after starting Ribociclib
Right MCA stroke with M2 occlusion in setting of subtherapeutic INR while off Coumadin 07/15/22
patient bridged with Lovenox prior to colonoscopy 07/10/21, but no Lovenox bridge post-colonoscopy
Mechanical AVR pediatric size 2006
Chronic warfarin OAC
Mitral regurgitation with mitral stenosis
Tricuspid regurgitation with pulmonary hypertension
h/o CVA 2005; recurrent right MCA stroke secondary to M2 occlusion in setting of subtherapeutic INR 06/2022
h/o Hodgkin's lymphoma treated with radiation to left neck and pelvis 1973
h/o breast CA 2018 treated with B/L mastectomy, patient refused chemotherapy and radiation, but eventually agreeable to Tamoxifen
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
Recurrence of breast cancer 2021 - did not tolerate Ibrance or Ribociclib
Labile HTN
Hypothyroidism
Lexiscan nuclear stress test 11/28/2021:�Positive EKG.� Perfusion imaging with small inferoseptal suggestive of significant bowel artifact vs ischemia
Echo 08/31/19: EF 55-60%, grade II diastolic dysfunction, moderate MR, mechanical aortic valve mean gradient 8 mmHg
Echo 07/16/21:�EF 70-75%, mild to mod MS with mean gradient 10 mmHg, [place] AVR mean gradient 13, PAP 43 mmHg
Echo 08/26/2022: Hyperdynamic LV.� EF 70 to 75%.� Mild to moderate MS peak/mean gradient 20/7 mmHg.� Moderate to severe MR.� Well-seated mechanical AVR with peak/mean gradient 11/6 mmHg without regurgitation.� Moderate to severe TR.� Moderate
pulmonary hypertension with PAP 50 to 55 mmHg.
Echo 02/10/2023: EF 60 to 65%.� Moderate mitral stenosis mean gradient 11 with severe MR.� Well-seated mechanical AVR with peak/mean gradient 15/8 mmHg, mild to moderate TR, mild pulmonary hypertension with PAP 45 to 48 mmHg.
Echo 11/19/2023: EF 70-75%, moderate MS with peak/mean gradients 15/8 mmHg, moderate MR, mechanical prosthetic AVR with peak/mean gradients 16/9 mmHg, trace AR, moderate TR, estimated PAP 30-35 mmHg
Echo 10/25/24: EF 55-60%, moderate mitral stenosis with mean gradient of 8 mmHg, mild to moderate MR, mechanical AVR with mean gradient of 10, no AI, mild to moderate TR with PA pressure 40-45
Plan:
Echo reviewed with no clear wall motion abnormality. She remains short of breath with cough and appears to be mildly volume overloaded.
Will start gentle Lasix 40 mg p.o. today and watch for hypotension. She is currently off pressors.
If blood pressure remains stable will start to add back Toprol 12.5mg daily
Her troponin is abnormal. The etiology is remains unclear probably while this could be from a nonischemic myocardial injury and hypotension, she clearly could also have significant coronary artery disease.
Cardiac cath in 2006 had no significant CAD.
Will hold Coumadin and start IV heparin and plan for cardiac catheterization this admission.
Continue antibiotics.
Progress Note - Health Technician
Subjective
Date of Service: October 26, 2024
Still with cough. Slowly improving. Remains somewhat short of breath.
Objective
Labs:
10/26/24 04:59
10/26/24 04:59
Labs
Hgb 11.1 g/dL (12.0-16.0) L 10/26/24 04:59
Hct 33.7 % (37.0-47.0) L 10/26/24 04:59
Plt Count 288 10^3/uL (130-400) 10/26/24 04:59
PT 28.5 Sec (11.4-14.6) H 10/26/24 04:59
INR 2.68 10/26/24 04:59
Sodium 129 mmol/L (135-145) L 10/26/24 04:59
Potassium 5.4 mmol/L (3.5-5.1) H 10/26/24 04:59
BUN 27 mg/dl (7-17) H 10/26/24 04:59
Creatinine 1.1 mg/dL (0.6-1.0) H 10/26/24 04:59
Glucose 95 mg/dl (70-99) 10/26/24 04:59
Troponins
10/24/24 10/24/24 10/24/24
11:39 15:34 17:44
Troponin I 0.014 Cancelled 0.016
10/24/24 10/25/24 10/25/24
20:01 03:18 09:51
Troponin I 0.098 H* D 1.200 H* D 1.280 H*
10/25/24 10/25/24 10/26/24
16:54 22:38 04:59
Troponin I 0.809 H* D 0.675 H* 0.584 H*
Vital Signs and I&O:
Vital Signs
Temp Pulse Resp BP Pulse Ox
99.2 F 104 24 118/54 92
10/26/24 07:07 10/26/24 06:00 10/26/24 06:00 10/26/24 06:00 10/26/24 08:09
Vital Signs
Temp Pulse Resp BP Pulse Ox
99.2 F 104 24 118/54 92
10/26/24 07:07 10/26/24 06:00 10/26/24 06:00 10/26/24 06:00 10/26/24 08:09
Intake & Output
10/24/24 10/25/24 10/26/24 10/27/24
06:59 06:59 06:59 06:59
Output Total 450 / 450 400 / 400
Balance -450 / -450 -400 / -400
Physical Exam
Physical Exam
GEN: No distress, awake, Ox3
HEENT: supple, anicteric, mmm
LUNGS: scatt rhonchi
CV: Reg, S1/S2, 1/6 syst LSB, + click
ABD: soft, BS+, NT/ND
EXT: No edema
NEURO: Gross non-focal
SKIN: No rash
[2024-10-26 10:51] LABS: APTT 38.7 Sec (23.4-35.0)
[2024-10-26 11:01] LABS: Troponin I 0.561 ng/ml
[2024-10-26] MEDS: LASIX 40 MG PO (11:13)
[2024-10-26] MEDS: ROCEPHIN 1000 MG IV (11:13)
[2024-10-26] MEDS: STERILE WATER FOR INJECTION 10 ML IV (11:14)
[2024-10-26] MEDS: HEPARIN 25000 UNITS/250 ML IV (11:14)
--- NOTE | 2024-10-26 15:16 | PN.CDI ---
CDI
- -
CDI:
Physician Documentation Request
Admit Date: 10/24/24 16:56
Dear Doctor,
Please review the following and provide your response in the progress notes.
Current documentation includes a diagnosis of hypotension.
Clinical Indicators:
Admit Date: 10/24/24 16:56
Dear Doctor Thuy,
Please review the following and provide your response in the progress notes.
Current documentation includes a diagnosis of hypotension.
Clinical Indicators:
Pt admitted with new onset acute diastolic heart failure, ruled in for NSTEMI.
10/25 Cardiology Note: 'Ruled in for nstemi...Hold off on further Lasix given hypotension requiring pressors'
Selected Entries
10/24/24
18:45 10/24/24
21:00 10/25/24
03:06
Blood pressure 85/40 80/39 74/62
Laboratory Tests
10/24/24 10/24/24 10/25/24
13:05 20:01 03:18
Creatinine 0.9 1.2 H 1.3 H
Please clarify which of the following is the most likely etiology of the above symptoms and treatment rendered:
Septic shock
Cardiogenic shock
Hypotension Only
Other
Use of terms such as suspected, likely, concern for, or probable (associated with a specific diagnosis that is being evaluated, monitored, or treated as if it exists) are acceptable and can be coded in the inpatient setting, when documented at the
time of discharge.
Thank you,
Maureen Rangel
CDI Specialist
Please use your independent medical judgment in providing your response.
[2024-10-26] MEDS: TOPROL XL 12.5 MG PO (15:22)
[2024-10-26] MEDS: ATIVAN 0.25 MG PO ×2 (15:23→22:32)
--- NOTE | 2024-10-26 15:24 | PN.CDI ---
CDI
- -
CDI:
Physician Documentation Request
Admit Date: 10/24/24 16:56
Dear Doctor Thuy,
Please review the following and provide your response in the progress notes.
Clinical Indicators:
Height: 4'10'
Weight: 90lb
BMI:18.8
Other Clinical Notes:
If possible, please provide an associated diagnosis related to the abnormal BMI, such as:
BMI < or = to 19
Underweight
Weight loss
Cachectic
Anorexia
BMI is not significant
Other
Use of terms such as suspected, likely, concern for, or probable (associated with a specific diagnosis that is being evaluated, monitored, or treated as if it exists) are acceptable and can be coded in the inpatient setting, when documented at the
time of discharge.
Thank you,
Maureen Rangel RN, BSN
CDI Specialist
Available via [facility] [employer]
Please use your independent medical judgment in providing your response.
--- NOTE | 2024-10-26 18:11 | W.PN.HOSP.TC ---
Today's Communication/Plan
-
Continue Heparin Drip
Hold Coumadin
Hold Lasix
Monitor in IMU
Assessment / Plan
Assessment / Plan
Physical Exam
General: Comfortable and Conversant
HEENT: Moist mucous membranes
Respiratory: Rhonchi bilaterally
Cardiac: S1/S2, Regular Rhythm, Murmur (Mechanical click consistent with AVR)
GI: Soft and Non Tender. Positive bowel sounds.
Musculoskeletal: No Cyanosis and No Edema
Skin: Warm and Dry
Neuro: Awake, Alert, Oriented and Nonfocal/grossly intact
Psych: Calm
Assessment/Plan
NSTEMI
-Cardiac cath for this admission
-Hold Coumadin
-Continue Heparin Drip
-Echo showed no wall motion abnormality
Acute HFpEF
-Consult Cardiology
-Initially held Lasix given hypotension requiring pressors -- now due to volume overloaded state, start gentle Lasix 40 mg p.o. daily
-Check Echo
-Monitor Is&Os and Daily Weights
-If blood pressure remains stable then plan is to start to add back Toprol 12.5mg daily
Hypotension
Concern for Mild Cardiogenic Shock
-Resolved
-Weaned off Levophed
Concern for Hypertensive Emergency on Admission
Labile Hypertension
-Patient was systolic 200+ mmHg in urgent care earlier today, and then 180s systolic in the ER
-BP dropped significantly following Furosemide in the ER
-Hold oral antihypertensives for now
Hyponatremia, likely hypervolemic in setting of heart failure
-Studies suggest possibly CHF/fluid overload as the cause vs. [place]
-TSH normal and AM cortisol 19.5
-Continue PO fluid restriction
Right Ear Pain, mild/moderate otitis externa
-Continue Cortisporin drops
Mild Right Lower Lobe Airspace Consolidation on CXR, possibly atelectasis vs pneumonia
-Patient given azithromycin and ceftriaxone in ED - continue
Aortic Stenosis s/p Mechanical Aortic Valve Replacement
-Hold Coumadin
-Monitor INR Daily
-Now on Heparin in preparation for cardiac cath
Mitral regurgitation with mitral stenosis
Tricuspid regurgitation with pulmonary hypertension
Admission for GI bleed in October 2023 in November 2023
GIB w/ transfusion 08/2022 after starting Ribociclib
Right MCA stroke with M2 occlusion in setting of subtherapeutic INR while off Coumadin 07/15/22
-patient bridged with Lovenox prior to colonoscopy 07/10/21, but no Lovenox bridge post-colonoscopy
Hypothyroidism
-Continue levothyroxine
History of Breast Cancer 2018 treated with B/L mastectomy, patient refused chemotherapy and radiation, but eventually agreeable to Tamoxifen
-Patient maintained on fulvestrant as outpatient
History of Hodgkin's Lymphoma s/p XRT
Underweight
DVT Prophylaxis: Heparin Drip
Code Status: Full Code
Anticipated Discharge: > 48 hours
Subjective/Interval History
-
Date of Service: October 26, 2024
Patient was seen and examined. She denied any symptoms or complaints.
Objective Data
-
Labs:
Laboratory Results
10/26/24 10/26/24
10:24 18:00
APTT 38.7 H Pending
Vital Signs:
Vital Signs
Temp Pulse Resp BP Pulse Ox
98.9 F 107 29 139/55 95
10/26/24 11:11 10/26/24 12:00 10/26/24 12:00 10/26/24 10:00 10/26/24 12:00
I&O
10/25/24 10/26/24 10/27/24
06:59 06:59 06:59
Intake Total 240 / 240
Output Total 450 / 450 400 / 400
Balance -450 / -450 -400 / -400 240 / 240
[2024-10-26 18:25] LABS: APTT 40.6 Sec (23.4-35.0)
[2024-10-26 18:43] LABS: Troponin I 0.578 ng/ml
--- NOTE | 2024-10-26 19:13 | PTCARENOTE ---
Very anxious 'mild anxiety attack' this afternoon- has PRN Ativan at home takes bid when needed- order obtained and administered with good relief. IV Heparin initiated today- increased per protocol. Midline with +blood return intact. INTs x2
sites as well. BP now being taken on lower extremities-d/t upper extremity restrictions- multiple cuffs tried as they were hurting her- manual attempt unsuccessfully- unable to hear. Few noted are elevated 170s-200/40s-60s PO Toprol given. ST
100 noted on tele. Continues with moist npc- was pink frothy yesterday. PO Lasix given this am. Attempted Hat in bathroom - missed quite a few times today. Appetite fair. Family present this pm.
[2024-10-26] MEDS: CORTISPORIN OTIC SUSPENSION 4 DROP OTIC (20:15)
[2024-10-26 20:47] LABS: Blood Urea Nitrogen 30 mg/dl (7-17); Calcium 8.6 mg/dl (8.4-10.2); Carbon Dioxide 26 mmol/L (22-30); Chloride 94 mmol/L (98-107); Estimated Creatinine Clearance 28 ml/min; Glucose 106 mg/dl (70-99); Potassium 4.7 mmol/L (3.5-5.1); Sodium 127 mmol/L (135-145); eGFR 48.39
[2024-10-27] VITALS (11 sets, daily range): BP systolic 124–158; BP diastolic 42–78; BMI 18.2
[2024-10-27 01:25] LABS: APTT 103.9 Sec (23.4-35.0)
[2024-10-27] MEDS: SYNTHROID 88 MCG PO (05:09)
--- NOTE | 2024-10-27 05:45 | PTCARENOTE ---
No acute events overnight. Heparin gtt at 700/units hr. Therapeutic PTT x1. Remains on 4 liters NC. Patient had dose of 0.25 mg ativan on the previous shift that patient stated was ineffective. inbound call center representative provider made aware and ordered 1x extra dose.
[2024-10-27 06:48] LABS: Hematocrit 34.4 % (37.0-47.0); Hemoglobin 11.6 g/dL (12.0-16.0); Mean Corp Hgb Conc. 33.7 g/dL (33.0-37.0); Mean Corpuscular Hgb 28.1 pg (27.0-31.0); Mean Corpuscular Volume 83.3 fL (81.0-99.0); Mean Platelet Volume 10.3 fL (7.4-10.4); Platelet Count 300 10^3/uL (130-400); Red Blood Cell Count 4.13 10^6/uL (4.20-5.40); Red Cell Dist. Width 14.9 % (11.5-14.5); White Blood Cell Count 11.2 10^3/uL (4.8-10.8)
[2024-10-27 06:57] LABS: PT 19.3 Sec (11.4-14.6)
[2024-10-27 06:59] LABS: APTT 97.5 Sec (23.4-35.0)
[2024-10-27 07:16] LABS: Blood Urea Nitrogen 35 mg/dl (7-17); Calcium 8.6 mg/dl (8.4-10.2); Carbon Dioxide 25 mmol/L (22-30); Chloride 95 mmol/L (98-107); Estimated Creatinine Clearance 29 ml/min; Glucose 86 mg/dl (70-99); Sodium 128 mmol/L (135-145); eGFR 53.72
[2024-10-27] MEDS: CORTISPORIN OTIC SUSPENSION 1 DROP OTIC ×3 (08:00→20:40)
--- NOTE | 2024-10-27 08:42 | W.PN.CARDCBS ---
Today's Communication / Plan
-
Continue Lasix 40 mg p.o. daily
Continue IV heparin and hold Coumadin.
Plan for cardiac cath in a.m.
Continue antibiotics.
Increase Toprol to 25 mg daily
Impression / Plan
-
PCP: Dr. Haynes
Cardiology: Dr. Michelle Justice
Oncology: Dr. Khan at [facility]/Onc
Impression:
Non-STEMI with peak troponin of 1.[address] changes which have resolved
Acute diastolic CHF
Abnormal ECG with lateral ST depression and negative troponin x 2
Admission for GI bleed in October 2023 in November 2023
GIB w/ transfusion 08/2022 after starting Ribociclib
Right MCA stroke with M2 occlusion in setting of subtherapeutic INR while off Coumadin 07/15/22
patient bridged with Lovenox prior to colonoscopy 07/10/21, but no Lovenox bridge post-colonoscopy
Mechanical AVR pediatric size 2006
Chronic warfarin OAC
Mitral regurgitation with mitral stenosis
Tricuspid regurgitation with pulmonary hypertension
h/o CVA 2005; recurrent right MCA stroke secondary to M2 occlusion in setting of subtherapeutic INR 06/2022
h/o Hodgkin's lymphoma treated with radiation to left neck and pelvis 1973
h/o breast CA 2018 treated with B/L mastectomy, patient refused chemotherapy and radiation, but eventually agreeable to Tamoxifen
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
Recurrence of breast cancer 2021 - did not tolerate Ibrance or Ribociclib
Labile HTN
Hypothyroidism
Lexiscan nuclear stress test 11/28/2021:�Positive EKG.� Perfusion imaging with small inferoseptal suggestive of significant bowel artifact vs ischemia
Echo 08/31/19: EF 55-60%, grade II diastolic dysfunction, moderate MR, mechanical aortic valve mean gradient 8 mmHg
Echo 07/16/21:�EF 70-75%, mild to mod MS with mean gradient 10 mmHg, [place] AVR mean gradient 13, PAP 43 mmHg
Echo 08/26/2022: Hyperdynamic LV.� EF 70 to 75%.� Mild to moderate MS peak/mean gradient 20/7 mmHg.� Moderate to severe MR.� Well-seated mechanical AVR with peak/mean gradient 11/6 mmHg without regurgitation.� Moderate to severe TR.� Moderate
pulmonary hypertension with PAP 50 to 55 mmHg.
Echo 02/10/2023: EF 60 to 65%.� Moderate mitral stenosis mean gradient 11 with severe MR.� Well-seated mechanical AVR with peak/mean gradient 15/8 mmHg, mild to moderate TR, mild pulmonary hypertension with PAP 45 to 48 mmHg.
Echo 11/19/2023: EF 70-75%, moderate MS with peak/mean gradients 15/8 mmHg, moderate MR, mechanical prosthetic AVR with peak/mean gradients 16/9 mmHg, trace AR, moderate TR, estimated PAP 30-35 mmHg
Echo 10/25/24: EF 55-60%, moderate mitral stenosis with mean gradient of 8 mmHg, mild to moderate MR, mechanical AVR with mean gradient of 10, no AI, mild to moderate TR with PA pressure 40-45
Plan:
Echo reviewed with no clear wall motion abnormality. She remains short of breath with cough and appears to be mildly volume overloaded.
Cont Lasix 40 mg p.o. today and watch for hypotension. She is currently off pressors.
Add back Toprol 25mg daily
Her troponin is abnormal. She clearly had an event, however the etiology remains unclear. This could be from a nonischemic myocardial injury and hypotension, she clearly could also have significant coronary artery disease. INR 1.6. Plan is to
proceed with cath in AM. Continue IV heparin. Continue to hold Coumadin. Add ASA 81mg daily
Cardiac cath in 2006 had no significant CAD.
Continue antibiotics.
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
Subjective
Date of Service: October 27, 2024
Still with cough but improving. Denies current chest pains.
Objective
Labs:
10/27/24 06:26
10/27/24 06:26
Labs
Hgb 11.6 g/dL (12.0-16.0) L 10/27/24 06:26
Hct 34.4 % (37.0-47.0) L 10/27/24 06:26
Plt Count 300 10^3/uL (130-400) 10/27/24 06:26
PT 19.3 Sec (11.4-14.6) H 10/27/24 06:
INR 1.60 10/27/24 06:
APTT 97.5 Sec (23.4-35.0) H 10/27/24 06:26
Sodium 128 mmol/L (135-145) L 10/27/24 06:
Potassium 5.0 mmol/L (3.5-5.1) 10/27/24 06:
BUN 35 mg/dl (7-17) H 10/27/24 06:26
Creatinine 1.1 mg/dL (0.6-1.0) H 10/27/24 06:
Glucose 86 mg/dl (70-99) 10/27/24 06:26
Troponins
10/24/24 10/24/24 10/24/24
11:39 15:34 17:44
Troponin I 0.014 Cancelled 0.016
10/24/24 10/25/24 10/25/24
20:01 03:18 09:51
Troponin I 0.098 H* D 1.200 H* D 1.280 H*
10/25/24 10/25/24 10/26/24
16:54 22:38 04:59
Troponin I 0.809 H* D 0.675 H* 0.584 H*
10/26/24 10/26/24
10:24 18:00
Troponin I 0.561 H* 0.578 H*
Vital Signs and I&O:
Vital Signs
Temp Pulse Resp BP Pulse Ox
98.1 F 89 24 150/51 93
10/27/24 04:13 10/27/24 06:00 10/27/24 06:00 10/27/24 06:00 10/27/24 06:00
Vital Signs
Temp Pulse Resp BP Pulse Ox
98.1 F 89 24 150/51 93
10/27/24 04:13 10/27/24 06:00 10/27/24 06:00 10/27/24 06:00 10/27/24 06:00
Intake & Output
10/25/24 10/26/24 10/27/24 10/28/24
06:59 06:59 06:59 06:59
Intake Total 1164 / 1164
Output Total 450 / 450 400 / 400 900 / 900
Balance -450 / -450 -400 / -400 264 / 264
Physical Exam
Physical Exam
GEN: No distress, awake, Ox3
HEENT: supple, anicteric, mmm
LUNGS: scatt rhonchi
CV: Reg, S1/S2, 1/6 syst LSB, + click
ABD: soft, BS+, NT/ND
EXT: No edema
NEURO: Gross non-focal
SKIN: No rash
[2024-10-27] MEDS: PROTONIX 40 MG PO (08:49)
[2024-10-27] MEDS: ZITHROMAX 500 MG PO (08:49)
[2024-10-27] MEDS: LASIX 40 MG PO (08:50)
[2024-10-27] MEDS: ROBITUSSIN DM 5 ML PO (08:58)
[2024-10-27] MEDS: TOPROL XL 25 MG PO (08:58)
[2024-10-27] MEDS: TOPROL XL PO (09:02)
[2024-10-27] MEDS: ATIVAN 0.25 MG PO ×3 (11:38→23:22)
[2024-10-27] MEDS: STERILE WATER FOR INJECTION 10 ML IV (11:38)
[2024-10-27] MEDS: ROCEPHIN 1000 MG IV (11:39)
--- NOTE | 2024-10-27 18:22 | PTCARENOTE ---
Pt states she has gastroparesis, she adds 12 hr to her npo status. Not eating dinner
--- NOTE | 2024-10-27 18:35 | W.PN.HOSP.TC ---
Today's Communication/Plan
-
Continue Heparin Drip
Cardiac cath tomorrow
Assessment / Plan
Assessment / Plan
Physical Exam
General: Comfortable and Conversant
HEENT: Moist mucous membranes
Respiratory: Rhonchi bilaterally
Cardiac: S1/S2, Regular Rhythm, Murmur (Mechanical click consistent with AVR)
GI: Soft and Non Tender. Positive bowel sounds.
Musculoskeletal: No Cyanosis and No Edema
Skin: Warm and Dry
Neuro: Awake, Alert, Oriented and Nonfocal/grossly intact
Psych: Calm
Assessment/Plan
NSTEMI
-Cardiac cath for this admission
-Hold Coumadin and continue Heparin Drip
-Echo showed no wall motion abnormality
-Cardiac cath in the morning
Acute HFpEF
-Consult Cardiology
-Initially held Lasix given hypotension requiring pressors -- now due to volume overloaded state, continue Lasix 40 mg p.o. daily
-Echo
-Monitor Is&Os and Daily Weights
-Continue Toprol 25 mg daily
Hypotension
Concern for Mild Cardiogenic Shock
-Resolved
-Weaned off Levophed
Concern for Hypertensive Emergency on Admission
Labile Hypertension
-Patient was systolic 200+ mmHg in urgent care earlier today, and then 180s systolic in the ER
-BP dropped significantly following Furosemide in the ER
-Hold oral antihypertensives for now
Hyponatremia, likely hypervolemic in setting of heart failure
-Studies suggest possibly CHF/fluid overload as the cause vs. [place]
-TSH normal and AM cortisol 19.5
-Continue PO fluid restriction
Right Ear Pain, mild/moderate otitis externa
-Continue Cortisporin drops
Mild Right Lower Lobe Airspace Consolidation on CXR, possibly atelectasis vs pneumonia
-Patient given azithromycin and ceftriaxone in ED - continue antibiotics (but course of Zithromax completed)
Aortic Stenosis s/p Mechanical Aortic Valve Replacement
-Hold Coumadin and continue Heparin in preparation for cardiac cath
-Monitor INR Daily
Mitral regurgitation with mitral stenosis
Tricuspid regurgitation with pulmonary hypertension
Admission for GI bleed in October 2023 in November 2023
GIB w/ transfusion 08/2022 after starting Ribociclib
Right MCA stroke with M2 occlusion in setting of subtherapeutic INR while off Coumadin 07/15/22
-patient bridged with Lovenox prior to colonoscopy 07/10/21, but no Lovenox bridge post-colonoscopy
Hypothyroidism
-Continue levothyroxine
History of Breast Cancer 2018 treated with B/L mastectomy, patient refused chemotherapy and radiation, but eventually agreeable to Tamoxifen
-Patient maintained on fulvestrant as outpatient
History of Hodgkin's Lymphoma s/p XRT
Underweight
DVT Prophylaxis: Heparin Drip
Code Status: Full Code
Anticipated Discharge: > 48 hours
Subjective/Interval History
-
Date of Service: October 27, 2024
Patient was seen and examined. She denied any chest pain or shortness of breath.
Objective Data
-
Labs:
Laboratory Results
10/27/24
06:26
WBC 11.2 H
Hgb 11.6 L
Hct 34.4 L
Plt Count 300
PT 19.3 H
INR 1.60
APTT 97.5 H
Sodium 128 L
Potassium 5.0
Chloride 95 L
Carbon Dioxide 25
BUN 35 H
Creatinine 1.1 H
Glucose 86
Calcium 8.6
Vital Signs:
Vital Signs
Temp Pulse Resp BP Pulse Ox
98.1 F 88 23 124/42 94
10/27/24 15:10 10/27/24 18:00 10/27/24 18:00 10/27/24 18:00 10/27/24 18:00
I&O
10/26/24 10/27/2410/28/25
06:59 06:59 06:59
Intake Total 1164 / 1164
Output Total 400 / 400 900 / 900
Balance -400 / -400 264 / 264
[2024-10-27] MEDS: HEPARIN 25000 UNITS/250 ML IV (23:22)
[2024-10-28] VITALS (37 sets, daily range): BP systolic 110–191; BP diastolic 49–77; BMI 18.0
[2024-10-28] MEDS: SYNTHROID 88 MCG PO (04:41)
--- NOTE | 2024-10-28 05:04 | PTCARENOTE ---
No acute events overnight. Ativan given x1 for anxiety. NPO at midnight for upcoming cardiac cath.
[2024-10-28 05:07] LABS: Hematocrit 35.4 % (37.0-47.0); Mean Corp Hgb Conc. 33.9 g/dL (33.0-37.0); Mean Corpuscular Hgb 28.1 pg (27.0-31.0); Mean Corpuscular Volume 82.9 fL (81.0-99.0); Mean Platelet Volume 10.2 fL (7.4-10.4); Platelet Count 290 10^3/uL (130-400); Red Blood Cell Count 4.27 10^6/uL (4.20-5.40); Red Cell Dist. Width 14.9 % (11.5-14.5); White Blood Cell Count 8.9 10^3/uL (4.8-10.8)
[2024-10-28 05:22] LABS: INR 1.47; PT 18.3 Sec (11.4-14.6)
[2024-10-28 05:31] LABS: APTT 151.1 Sec (23.4-35.0)
--- NOTE | 2024-10-28 05:38 | PTCARENOTE ---
Critical PTT called in by lab- PTT 151.1. Heparin on hold per protocol for one hour. call center operations manager provider made aware.
[2024-10-28 06:10] LABS: Blood Urea Nitrogen 40 mg/dl (7-17); Calcium 8.5 mg/dl (8.4-10.2); Carbon Dioxide 23 mmol/L (22-30); Chloride 95 mmol/L (98-107); Estimated Creatinine Clearance 29 ml/min; Glucose 81 mg/dl (70-99); Potassium 4.8 mmol/L (3.5-5.1); Sodium 129 mmol/L (135-145); eGFR 53.72
[2024-10-28] MEDS: ROBITUSSIN DM 5 ML PO (06:40)
--- NOTE | 2024-10-28 06:53 | W.PN.HOSP.TC ---
Today's Communication/Plan
-
.
Assessment / Plan
Assessment / Plan
Physical Exam
General: Comfortable and Conversant
HEENT: Moist mucous membranes
Respiratory: Rhonchi bilaterally
Cardiac: S1/S2, Regular Rhythm, Murmur (Mechanical click consistent with AVR)
GI: Soft and Non Tender. Positive bowel sounds.
Musculoskeletal: No Cyanosis and No Edema
Skin: Warm and Dry
Neuro: Awake, Alert, Oriented and Nonfocal/grossly intact
Psych: Calm
Assessment/Plan
NSTEMI
-Cardiac cath for this admission
-Hold Coumadin and continue Heparin Drip. INR 1.4 on 10/28
-Echo showed no wall motion abnormality
-Cardiac cath
Acute HFpEF
-Consult Cardiology
-Initially held Lasix given hypotension requiring pressors -- now due to volume overloaded state, continue Lasix 40 mg p.o. daily
-Echo
-Monitor Is&Os and Daily Weights
-Continue Toprol 25 mg daily
Hypotension
Concern for Mild Cardiogenic Shock
-Resolved
-Weaned off Levophed
Concern for Hypertensive Emergency on Admission
Labile Hypertension
-Patient was systolic 200+ mmHg in urgent care earlier today, and then 180s systolic in the ER
-BP dropped significantly following Furosemide in the ER
-Hold oral antihypertensives for now
Hyponatremia, likely hypervolemic in setting of heart failure
-Studies suggest possibly CHF/fluid overload as the cause vs. [place]
-TSH normal and AM cortisol 19.5
-Continue PO fluid restriction
Right Ear Pain, mild/moderate otitis externa
-Continue Cortisporin drops
Mild Right Lower Lobe Airspace Consolidation on CXR, possibly atelectasis vs pneumonia
-Patient given azithromycin and ceftriaxone in ED - continue antibiotics (but course of Zithromax completed)
Aortic Stenosis s/p Mechanical Aortic Valve Replacement
-Hold Coumadin and continue Heparin in preparation for cardiac cath
-Monitor INR Daily
Mitral regurgitation with mitral stenosis
Tricuspid regurgitation with pulmonary hypertension
Admission for GI bleed in October 2023 in November 2023
GIB w/ transfusion 08/2022 after starting Ribociclib
Right MCA stroke with M2 occlusion in setting of subtherapeutic INR while off Coumadin 07/15/22
-patient bridged with Lovenox prior to colonoscopy 07/10/21, but no Lovenox bridge post-colonoscopy
Hypothyroidism
-Continue levothyroxine
History of Breast Cancer 2018 treated with B/L mastectomy, patient refused chemotherapy and radiation, but eventually agreeable to Tamoxifen
-Patient maintained on fulvestrant as outpatient
History of Hodgkin's Lymphoma s/p XRT
Underweight
DVT Prophylaxis: Heparin Drip
Code Status: Full Code
Total time spent to see the patient, examine the patient, review data and lab results, discuss treatment plan with patient, nursing staff around 55 minutes
Anticipated Discharge: 24 - 48 hours
Subjective/Interval History
-
Date of Service: October 28, 2024
No chest pain
No sob
No fever
Worried about the procedure
Objective Data
-
Labs:
Laboratory Results
10/28/24 10/28/24
04:37 12:45
WBC 8.9
Hgb 12.0
Hct 35.4 L
Plt Count 290
PT 18.3 H
INR 1.47
APTT 151.1 H* Pending
Sodium 129 L
Potassium 4.8
Chloride 95 L
Carbon Dioxide 23
BUN 40 H
Creatinine 1.1 H
Glucose 81
Calcium 8.5
Vital Signs:
Vital Signs
Temp Pulse Resp BP Pulse Ox
98.3 F 96 19 175/56 97
10/28/24 03:00 10/28/24 06:00 10/28/24 06:00 10/28/24 06:00 10/28/24 06:00
I&O
10/26/24 10/27/24 10/28/24
06:59 06:59 06:59
Intake Total 1164 / 1164
Output Total 400 / 400 900 / 900 150 / 150
Balance -400 / -400 264 / 264 -150 / -150
--- NOTE | 2024-10-28 08:00 | PTCARENOTE ---
Pt AAOx3 awaiting mushroom laborer. Heparin at 500 units per hour. NPO maintained
[2024-10-28] MEDS: TOPROL XL 25 MG PO (08:41)
[2024-10-28] MEDS: PROTONIX 40 MG PO (08:42)
[2024-10-28] MEDS: ZITHROMAX 500 MG PO (08:42)
[2024-10-28] MEDS: CORTISPORIN OTIC SUSPENSION 1 DROP OTIC (08:42)
--- NOTE | 2024-10-28 10:43 | PTCARENOTE ---
Cardiac cardiac catheterization technician came for pt, heparin DC . followed cardiac catheterization technician
[2024-10-28 11:21] LABS: ACT-LR - POC 306 Seconds (116-155)
[2024-10-28 11:53] LABS: ACT-LR - POC 339 Seconds (116-155)
[2024-10-28] MEDS: NSS 500 VEN SHEATH (12:16)
--- NOTE | 2024-10-28 12:16 | PTCARENOTE ---
Vital signs captured between 0800 today and 1215 today were obtained by another RN. This RN is unable to verify accuracy of vital signs obtained prior to 1215.
--- NOTE | 2024-10-28 12:29 | ITS.CL.CATH ---
Radiation Protection Engineer - Catheterization
Cardiac Catheterization
Procedure Report:
LEFT AND RIGHT HEART CATHETERIZATION
Date of Procedure: October 28, 2024
Referring: Aramis Resendez
PROCEDURES:
1. Coronary angiogram.
2. Right heart catheterization.
3. Ultrasound-guided access.
4. Intravascular ultrasound of left main
5. Functional physiologic testing with IFR of left main
INDICATION:
ACCESS:
1. Right radial artery, 5 [place] sheath, under ultrasound guidance.
2. Right common femoral vein, 6 [place] sheath, under ultrasound guidance using a micropuncture kit
Ultrasound was utilized for vascular access. The radial artery common femoral vein were visualized under ultrasound, and the vessel was patent. An image was stored permanently in the patient's medical record. Under direct ultrasound guidance, a 5
[place] sheath was inserted into the artery and 6 [place] sheath in the vein, respectively using a micropuncture kit through a modified Seldinger technique.
HEMODYNAMICS : (mmHg)
RA (m) : 11
RV (s/d,m) : 59/3, 13
PA (s/d, m) : 62/26, 41
PCWP (m) : 22
PA saturation: 68.3% on 2 L of oxygen via nasal cannula
AO saturation: 97.2% on 2 L of oxygen via nasal cannula
RA saturation: 69.5% on 2 L of oxygen via nasal cannula
Cardiac Output : 3.22 L/min
Cardiac Index : 2.54 L/min/m-2
Systemic vascular resistance: 2159 dsc^(-5)
Pulmonary vascular resistance: 5.89 loving unit
Heart rate: 96 bpm
AO (s/d) : 143/63, mean of 98 mmHg
CORONARY FINDINGS
DOMINANCE: Right
LEFT MAIN: The left main is a large-caliber long vessel which gives rise to the left anterior descending artery and the left circumflex artery. There is a eccentric 60 to 70% ostial to proximal left main stenosis which is difficult to visualize.
We initially tried to further assess using [place] eye IVUS catheter however we could not advance it past the ostium despite multiple attempts. At this point we moved forward with functional physiologic testing with IFR which was grossly positive at
0.78.
LEFT ANTERIOR DESCENDING: The left anterior descending artery is a large-caliber vessel which gives rise to 2 small to medium caliber diagonal branches as it courses to the anterior interventricular groove and wraps around the apex. There is mild
diffuse atherosclerotic plaque with robust [id number] collaterals.
CIRCUMFLEX: The left circumflex artery is a medium caliber vessel which gives rise to 1 major obtuse marginal branch. There is mild diffuse atherosclerotic plaque with robust [id number] collaterals.
RIGHT CORONARY ARTERY: The right coronary artery is a medium to large caliber, dominant vessel which gives rise to the right posterior descending artery and the right posterolateral system. There is 100% chronic total occlusion in the proximal RCA
with robust [id number] collaterals.
HEMODYNAMIC ASSESSMENT OF THE [ ] WITH A [place] OMNI WIRE: The origin of the [ ] was cannulated with a [ ] Fr [ ] guide catheter. Intravenous heparin was administered and the ACT was followed during the procedure. Two hundred micrograms of
intracoronary nitroglycerin was given through the guide catheter. A [place] Omni wire was advanced to the guide catheter tip and normalized to guide catheter pressure. The Omni wire was then carefully manipulated across the stenosis in the [ ]
with the iFR [ ] the ischemic threshold serially measuring [ ]. The Omni wire was then pulled back to the guide catheter where the Pd/Pa measured 1.0 confirming no baseline drift in pressure readings
SEDATION: 83 minutes of procedural sedation was utilized. An independent medical administrative assistant was present to assist with and help manage the patient's level of consciousness and physiologic status.
RADIATION SUMMARY: Fluoro Time (min): 12.8, Dose (mGy): 168.06, DAP (Gy.cm2) : 11.8
Closure Device: Vascular band over right radial artery, 12 cc of air. Manual pressure was held over the right common femoral venous access site with successful hemostasis.
CONCLUSIONS
1. Eccentric 60 to 70% ostial to proximal left main stenosis, difficult to visualize with IVUS due to inability to freely advance the IVUS catheter. IFR positive at 0.78.
2. 100% chronic total occlusion of proximal RCA with [id number] collaterals.
3. Significantly elevated right left-sided filling pressures with normal cardiac output in the setting of significantly elevated systemic vascular resistance and severe pulmonary hypertension.
RECOMMENDATIONS
1. Wean radial band per protocol.
2. Aggressive management of cardiovascular risk factors and goal-directed medical therapy for underlying CAD and IV diuresis for improvement in filling pressures.
3. 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 Given her frailty and significant
comorbid conditions with a porcelain aorta, prior mechanical AVR, I do not believe patient would be a good surgical candidate and therefore we will hold off on CT surgery consult for now.
4. Eventual referral for outpatient cardiac rehab.
Copy to: Aramis Resendez
[2024-10-28] MEDS: LASIX 40 MG IV (12:41)
[2024-10-28] MEDS: APRESOLINE 25 MG PO (12:47)
[2024-10-28 13:24] LABS: ACT-LR - POC 194 Seconds (116-155)
--- NOTE | 2024-10-28 13:24 | PTCARENOTE ---
Pt's ACT is 194.
[2024-10-28] MEDS: ROCEPHIN 1000 MG IV (13:37)
[2024-10-28] MEDS: STERILE WATER FOR INJECTION 10 ML IV (13:37)
--- NOTE | 2024-10-28 13:46 | PTCARENOTE ---
Blood pressure cuff moved from right calf to left calf during right femoral venous sheath pull.
--- NOTE | 2024-10-28 14:11 | PTCARENOTE ---
Dr Willams at pt bedside speaking to pt about procedure results.
[2024-10-28] MEDS: LASIX PO (15:10)
--- NOTE | 2024-10-28 16:33 | CM ---
Chart reviewed and patient for possible cardia cath today, plan is to home when stable.
Plan; Home when stable.
[2024-10-28] MEDS: CORTISPORIN OTIC SUSPENSION OTIC ×2 (16:38→22:20)
--- NOTE | 2024-10-28 17:41 | PTCARENOTE ---
Pt returned from school laboratory technician on BR for 4 hrs now over . Pt encouraged to order dinner. Pure wick remains in place at this time. TR band off see documentation . no bleeding from site . Femoral site no hematoma . at bedside
--- NOTE | 2024-10-28 18:16 | PTCARENOTE ---
Pt very upset over cath results asking for something stronger to sleep DR Canchola tt . Dr Willams tt she will be up to see pt,
[2024-10-28] MEDS: ATIVAN 0.5 MG PO (20:16)
--- NOTE | 2024-10-28 22:36 | VATNOTE ---
CALLED TO ASSESS 4FR L ML. DRSG AND BED LINENS AND GOWN SATURATED WITH BRIGHT RED BLOOD.MODERATE AMT OF ACTIVE BLEEDING NOTED FROM INSERTION SITE AND LARGE ECCHYMOTIC AREA WELL. RD PER RPOTOCOL WITH QUICK CLOT X2 AND 4X4 GUAZE. PCN TO WRAP ARM
WITH LETTY AN ADDITIONAL PRESSURE DRSG. WILL MONITOR.
[2024-10-28 22:54] LABS: APTT 67.7 Sec (23.4-35.0)
[2024-10-29] VITALS (21 sets, daily range): BP systolic 126–171; BP diastolic 51–118; PULSE 91–101; O2SAT 95; BMI 17.6
[2024-10-29] MEDS: NSS VEN SHEATH (04:43)
[2024-10-29] MEDS: SYNTHROID 88 MCG PO (04:44)
[2024-10-29 05:19] LABS: INR 1.48; PT 18.4 Sec (11.4-14.6)
[2024-10-29 05:22] LABS: APTT 113.3 Sec (23.4-35.0)
[2024-10-29 05:43] LABS: Blood Urea Nitrogen 42 mg/dl (7-17); Calcium 8.3 mg/dl (8.4-10.2); Carbon Dioxide 26 mmol/L (22-30); Chloride 95 mmol/L (98-107); Estimated Creatinine Clearance 28 ml/min; Glucose 79 mg/dl (70-99); Potassium 4.6 mmol/L (3.5-5.1); Sodium 130 mmol/L (135-145); eGFR 53.72
--- NOTE | 2024-10-29 06:00 | PTCARENOTE ---
Received pt from day shift. pt aaox3, no c/o pain at this time. neurovascular checks ongoing (see worklist). Pt has heparin infusing at 5mL/hr. Small amount of red blood seen on pt's midline dressing. Notified GIANNA Lord who came to bedside and
assessed pt and redressed midline. Minimal bleeding from new dressing. Pt resting in bed with call roth in reach.
[2024-10-29] MEDS: APRESOLINE 5 MG IV (06:24)
--- NOTE | 2024-10-29 06:30 | VATNOTE ---
MINIMAL BLEEDING NOTED FROM L ML AFTER MOST RECENT REDRESS.PCN HAD ADDED ADDITIONAL KRIS WRAP TO PROVIDE ADDITIONAL PRESSURE. PTT REMAINS SUPRATHERAPEUTIC. OOZING FROM SITE SEEMS STABLE AT THIS TIME. VAT TO CONTINUE TO MONITOR.
--- NOTE | 2024-10-29 06:39 | W.PN.HOSP.TC ---
Today's Communication/Plan
-
Still on Heparin gtt, to resume Coumadin
Home O2 upon discharge
DC planning
Assessment / Plan
Assessment / Plan
Physical Exam
General: Comfortable and Conversant
HEENT: Moist mucous membranes
Respiratory:much less rhonchi bilaterally
Cardiac: S1/S2, Regular Rhythm, Murmur (Mechanical click consistent with AVR)
GI: Soft and Non Tender. Positive bowel sounds.
Musculoskeletal: No Cyanosis and No Edema
Skin: Warm and Dry
Neuro: Awake, Alert, Oriented and Nonfocal/grossly intact
Psych: Calm
Assessment/Plan
NSTEMI
Non-STEMI with peak troponin of 1.[address] changes
-Cardiac cath 10/28
-Held Coumadin and continue Heparin Drip. INR 1.4 on 10/28
-Echo showed no wall motion abnormality
- post cath diuretic therapy/ severe pulmonary hypertension
Acute HFpEF
- Lost weigth
-Monitor Is&Os and Daily Weights
-Continue Toprol 25 mg daily
Hypotension
Concern for Mild Cardiogenic Shock
-Resolved
-Weaned off Levophed
Concern for Hypertensive Emergency on Admission
Labile primary Hypertension
-Patient was systolic 200+ mmHg in urgent care earlier today, and then 180s systolic in the ER
-BP dropped significantly following Furosemide in the ER
-Held oral antihypertensives for now
Hyponatremia, likely hypervolemic in setting of heart failure
-Studies suggest possibly CHF/fluid overload as the cause vs. [place]
-TSH normal and AM cortisol 19.5
-Continue PO fluid restriction
Right Ear Pain, mild/moderate otitis externa
-Continue Cortisporin drops
Mild Right Lower Lobe Airspace Consolidation on CXR, possibly atelectasis vs pneumonia
-Patient given azithromycin and ceftriaxone in ED - continue antibiotics (but course of Zithromax completed)
Aortic Stenosis s/p Mechanical Aortic Valve Replacement
-Hold Coumadin and continue Heparin in preparation for cardiac cath
-Monitor INR Daily
Mitral regurgitation with mitral stenosis
Tricuspid regurgitation with pulmonary hypertension
Admission for GI bleed in October 2023 in November 2023
GIB w/ transfusion 08/2022 after starting Ribociclib
Right MCA stroke with M2 occlusion in setting of subtherapeutic INR while off Coumadin 07/15/22
-patient bridged with Lovenox prior to colonoscopy 07/10/21, but no Lovenox bridge post-colonoscopy
Hypothyroidism
-Continue levothyroxine
History of Breast Cancer 2018 treated with B/L mastectomy, patient refused chemotherapy and radiation, but eventually agreeable to Tamoxifen
-Patient maintained on fulvestrant as outpatient
History of Hodgkin's Lymphoma s/p XRT
Underweight
DVT Prophylaxis: Heparin Drip
Code Status: Full Code
Total time spent to see the patient, examine the patient, review data and lab results, discuss treatment plan with patient, nursing staff around 55 minutes
Anticipated Discharge: Within 24 hours
Subjective/Interval History
-
Date of Service: October 29, 2024
She feels better
Less sob
Objective Data
-
Labs:
Laboratory Results
10/28/24 10/29/24 10/29/24
22:21 03:56 11:35
PT 18.4 H
INR 1.48
APTT 67.7 H 113.3 H Pending
Sodium 130 L
Potassium 4.6
Chloride 95 L
Carbon Dioxide 26
BUN 42 H
Creatinine 1.1 H
Glucose 79
Calcium 8.3 L
Vital Signs:
Vital Signs
Temp Pulse Resp BP Pulse Ox
97.7 F 88 23 171/60 95
10/29/24 03:25 10/29/24 06:24 10/29/24 04:00 10/29/24 06:24 10/29/24 04:00
I&O
10/27/24 10/28/24 10/29/24
06:59 06:59 06:59
Intake Total 1164 / 1164
Output Total 900 / 900 150 / 150 800 / 800
Balance 264 / 264 -150 / -150 -800 / -800
[2024-10-29] MEDS: CORTISPORIN OTIC SUSPENSION OTIC ×3 (10:03→21:28)
[2024-10-29] MEDS: LASIX 40 MG IV (10:04)
[2024-10-29] MEDS: TOPROL XL 25 MG PO (10:04)
[2024-10-29] MEDS: ZITHROMAX 500 MG PO (10:05)
[2024-10-29] MEDS: PLAVIX 300 MG PO (11:54)
[2024-10-29] MEDS: NORVASC 5 MG PO (11:54)
[2024-10-29] MEDS: STERILE WATER FOR INJECTION 10 ML IV (11:55)
[2024-10-29] MEDS: FLUSH (NSS) 2 FLUSH IV (11:55)
[2024-10-29] MEDS: ROCEPHIN 1000 MG IV (11:55)
--- NOTE | 2024-10-29 12:54 | VATNOTE ---
Left Midline still bleeding, dressing taken down and D-Stat dry Hemostatic applied. dressing wrapped with an bijal. Wilol continue to monitor.
[2024-10-29] MEDS: PROTONIX 40 MG PO (13:29)
--- NOTE | 2024-10-29 17:19 | W.PN.CARDCBS ---
Today's Communication / Plan
-
Plan:
1. Multiple extensive discussions were had with patient and her at bedside along with outpatient meter setter and Dr. Patrick Yu. Given significant comorbid conditions, frailty, prior GI bleeds and need for full anticoagulation long-term
in the setting of underlying mechanical aortic valve prosthesis, plan for now is to continue and optimize medical therapy with no immediate plans for left main PCI given high risk nature.
2. With this in mind we will restart warfarin while bridging with heparin drip for her mechanical aortic valve.
2. We will initiate Plavix given presentation of an NSTEMI and also to use this time to see how she will tolerate antiplatelet therapy in case we were to discuss pursuing left main PCI in the near future.
4. Given hypertension and elevated systemic vascular resistance, we will initiate 5 mg of amlodipine to allow for better blood pressures in the setting of significant coronary artery disease. We may utilize amlodipine and beta-blockers at maximal
dose before reinitiating lisinopril as hemodynamics allow.
5. Given pulmonary hypertension with pulmonary pressures out of proportion to be explained by elevated wedge pressure, recommend pulmonary evaluation and optimization of medications from there behalf given presentation of bronchitis type symptoms.
6. IV diuretics for another 24 days with plan to switch to p.o. starting tomorrow.
7. PT/OT, out of bed to chair, encourage incentive spirometry and discharge planning with plan for outpatient cardiology follow-up and recheck of blood work in 1 week after discharge.
Impression / Plan
-
PCP: Dr. Haynes
Cardiology: Dr. Michelle Justice
Oncology: Dr. Khan at [facility]
Impression:
Non-STEMI with peak troponin of 1.[address] changes which have resolved
Acute diastolic CHF
Abnormal ECG with lateral ST depression and negative troponin x 2
Admission for GI bleed in October 2023 in November 2023
GIB w/ transfusion 08/2022 after starting Ribociclib
Right MCA stroke with M2 occlusion in setting of subtherapeutic INR while off Coumadin 07/15/22
patient bridged with Lovenox prior to colonoscopy 07/10/21, but no Lovenox bridge post-colonoscopyMechanical AVR pediatric size 2006
Chronic warfarin OAC
Mitral regurgitation with mitral stenosis
Tricuspid regurgitation with pulmonary hypertension
h/o CVA 2005; recurrent right MCA stroke secondary to M2 occlusion in setting of subtherapeutic INR 06/2022
h/o Hodgkin's lymphoma treated with radiation to left neck and pelvis 1973
h/o breast CA 2018 treated with B/L mastectomy, patient refused chemotherapy and radiation, but eventually agreeable to Tamoxifen
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
Recurrence of breast cancer 2021 - did not tolerate Ibrance or RibociclibLabile HTN
Hypothyroidism
Lexiscan nuclear stress test 11/28/2021:�Positive EKG.� Perfusion imaging with small inferoseptal suggestive of significant bowel artifact vs ischemia
Echo 08/31/19: EF 55-60%, grade II diastolic dysfunction, moderate MR, mechanical aortic valve mean gradient 8 mmHg
Echo 07/16/21:�EF 70-75%, mild to mod MS with mean gradient 10 mmHg, [place] AVR mean gradient 13, PAP 43 mmHg
Echo 08/26/2022: Hyperdynamic LV.� EF 70 to 75%.� Mild to moderate MS peak/mean gradient 20/7 mmHg.� Moderate to severe MR.� Well-seated mechanical AVR with peak/mean gradient 11/6 mmHg without regurgitation.� Moderate to severe TR.� Moderate
pulmonary hypertension with PAP 50 to 55 mmHg.
Echo 02/10/2023: EF 60 to 65%.� Moderate mitral stenosis mean gradient 11 with severe MR.� Well-seated mechanical AVR with peak/mean gradient 15/8 mmHg, mild to moderate TR, mild pulmonary hypertension with PAP 45 to 48 mmHg.
Echo 11/19/2023: EF 70-75%, moderate MS with peak/mean gradients 15/8 mmHg, moderate MR, mechanical prosthetic AVR with peak/mean gradients 16/9 mmHg, trace AR, moderate TR, estimated PAP 30-35 mmHg
Echo 10/25/24: EF 55-60%, moderate mitral stenosis with mean gradient of 8 mmHg, mild to moderate MR, mechanical AVR with mean gradient of 10, no AI, mild to moderate TR with PA pressure 40-45
[facility] 10/28/2024: Eccentric 60-70 ostial to proximal Left main, difficult to advance IVUS catheter. iFR positive at 0.76. Elevated filling pressures, normal cardiac output/index.
Plan:
1. Multiple extensive discussions were had with patient and her at bedside along with outpatient meter setter and Dr. Patrick Yu. Given significant comorbid conditions, frailty, prior GI bleeds and need for full anticoagulation long-term
in the setting of underlying mechanical aortic valve prosthesis, plan for now is to continue and optimize medical therapy with no immediate plans for left main PCI given high risk nature.
2. With this in mind we will restart warfarin while bridging with heparin drip for her mechanical aortic valve.
2. We will initiate Plavix given presentation of an NSTEMI and also to use this time to see how she will tolerate antiplatelet therapy in case we were to discuss pursuing left main PCI in the near future.
4. Given hypertension and elevated systemic vascular resistance, we will initiate 5 mg of amlodipine to allow for better blood pressures in the setting of significant coronary artery disease. We may utilize amlodipine and beta-blockers at maximal
dose before reinitiating lisinopril as hemodynamics allow.
5. Given pulmonary hypertension with pulmonary pressures out of proportion to be explained by elevated wedge pressure, recommend pulmonary evaluation and optimization of medications from there behalf given presentation of bronchitis type symptoms.
6. IV diuretics for another 24 days with plan to switch to p.o. starting tomorrow.
7. PT/OT, out of bed to chair, encourage incentive spirometry and discharge planning with plan for outpatient cardiology follow-up and recheck of blood work in 1 week after discharge.
Progress Note - Manager Psychology
Subjective
Date of Service: October 29, 2024
No acute events overnight.
Objective
Labs:
10/28/24 04:37
10/29/24 03:56
Labs
Hgb 12.0 g/dL (12.0-16.0) 10/28/24 04:37
Hct 35.4 % (37.0-47.0) L 10/28/24 04:37
Plt Count 290 10^3/uL (130-400) 10/28/24 04:37
PT 18.4 Sec (11.4-14.6) H 10/29/24 03:56
INR 1.48 10/29/24 03:56
APTT 62.0 Sec (23.4-35.0) H 10/29/24 11:35
Sodium 130 mmol/L (135-145) L 10/29/24 03:56
Potassium 4.6 mmol/L (3.5-5.1) 10/29/24 03:56
BUN 42 mg/dl (7-17) H 10/29/24 03:56
Creatinine 1.1 mg/dL (0.6-1.0) H 10/29/24 03:56
Glucose 79 mg/dl (70-99) 10/29/24 03:56
Troponins
10/26/24
18:00
Troponin I 0.578 H*
Vital Signs and I&O:
Vital Signs
Temp Pulse Resp BP Pulse Ox
98.1 F 92 14 146/74 95
10/29/24 12:25 10/29/24 16:00 10/29/24 16:00 10/29/24 16:00 10/29/24 15:24
Vital Signs
Temp Pulse Resp BP Pulse Ox
98.1 F 92 14 146/74 95
10/29/24 12:25 10/29/24 16:00 10/29/24 16:00 10/29/24 16:00 10/29/24 15:24
Intake & Output
10/27/24 10/28/24 10/29/24 10/30/24
06:59 06:59 06:59 06:59
Intake Total 1164 / 1164 255 / 255
Output Total 900 / 900 150 / 150 800 / 800 150 / 150
Balance 264 / 264 -150 / -150 -800 / -800 105 / 105
Physical Exam
Physical Exam
GEN: No distress, awake, Ox3
HEENT: supple, anicteric, mmm
LUNGS: scatt rhonchi
CV: Reg, S1/S2, 1/6 syst LSB, + click
ABD: soft, BS+, NT/ND
EXT: No edema, no issues at right radial and right venous access sites
NEURO: Gross non-focal
SKIN: No rash
[2024-10-29] MEDS: COUMADIN 5 MG PO (18:05)
--- NOTE | 2024-10-29 18:34 | VATNOTE ---
Called to room due to bleeding midline; assessed and removed entire dsg. which was soaked with blood. Redressed with 2 Quick clot and 1 4x4 over quik clots. Pressure bijal applied. PCN aware of care. VAT to continue to follow.
--- NOTE | 2024-10-29 18:45 | PTCARENOTE ---
Patient received 5 mg coumadin tonight. Heparin drip is infusing at 700 units/hr.via left FA INT. Next PTT at 1950. Patient bleeding at midline site again. IV team to room to change dressing.
--- NOTE | 2024-10-29 19:30 | PTCARENOTE ---
Received pt from day shift. pt aaox3. NSR on monitor. 95% on RA. Pt has heparin infusing at 7mL/hr. Small amount of old drainage on midline dressing. Pt resting in bed with call roth in reach.
[2024-10-29] MEDS: ATIVAN 0.5 MG PO (21:29)
[2024-10-29] MEDS: ROBITUSSIN DM 5 ML PO (21:29)
[2024-10-29 22:22] LABS: APTT 174.4 Sec (23.4-35.0)
--- NOTE | 2024-10-29 22:30 | PTCARENOTE ---
pt's PTT 174.4. Heparin gtt now on hold per protocol. LIA Whitlock notified.
[2024-10-30] VITALS (16 sets, daily range): BP systolic 100–155; BP diastolic 41–81; PULSE 99; O2SAT 1; BMI 17.4
--- NOTE | 2024-10-30 00:46 | VATNOTE ---
4FR L MIDLINE WITH HEAVY BLEEDING AGAIN, DESPITE RECENT RD WITH QUICK CLOT AND PRESSURE SUPPORT WELL. PTT REMAINS SUPRATHERAPEUTIC. PT OPPOSED TO ML REMOVAL AT THIS TIME OVER CONCERNS OF INABILITY TO OBTAIN NEEDED LAB DRAWS DURING THE NIGHT. RD
AGAIN WITH QUICK CLOT X2, FOLDED ABDS AND KRIS WRAP. NOTICABLE CONSTANT OOZING FROM INSERTION SITE. PT INFORMED OF PLAN TO REMOVE ML IF THIS EXTENSIVE BLEEDING CONTINUES AND A PERIPERHAL ACCESS WILL BE ESTABLISHED TO OBTAIN NECESSARY LAB DRAWS. PCN
AWARE OF INTERVENTION AND PLAN OF CARE.VAT TO FOLLOW.
[2024-10-30 04:17] LABS: Hematocrit 32.3 % (37.0-47.0); Hemoglobin 10.8 g/dL (12.0-16.0); Mean Corp Hgb Conc. 33.4 g/dL (33.0-37.0); Mean Corpuscular Hgb 27.5 pg (27.0-31.0); Mean Corpuscular Volume 82.2 fL (81.0-99.0); Mean Platelet Volume 10.7 fL (7.4-10.4); Platelet Count 308 10^3/uL (130-400); Red Blood Cell Count 3.93 10^6/uL (4.20-5.40); Red Cell Dist. Width 14.9 % (11.5-14.5); White Blood Cell Count 7.6 10^3/uL (4.8-10.8)
--- NOTE | 2024-10-30 04:36 | VATNOTE ---
ML INSERTION SITE BLED THRU ENTIRETY OF PREVIOUSLY APPLIED DRSG INCLUDING THE KRIS WRAP. ENTIRE DRSG GROSSLY BLOODY. REQUIRED THE ASSISTANCE OF THE PCN TO APPLY MANUAL PRESSURE TO THE SITE TO CONTROL BLEEDING WHILE DRSG AND ML REMOVED. QUCIK CLOT AND
VASELIZE GAUZE APPLIED TO INSERTION SITE AND COVERED WITH 4X4 AND ABDS AND ENTIRE LUE WRAPPED IN LETTY. PT ENCOURAGED TO KEEP ARM ELEVATED. NEW PERIPERHAL SITE ESTABLISHED DOCUMENTED. VAT TO FOLLOW.
[2024-10-30 04:51] LABS: Blood Urea Nitrogen 50 mg/dl (7-17); Calcium 8.4 mg/dl (8.4-10.2); Carbon Dioxide 26 mmol/L (22-30); Chloride 95 mmol/L (98-107); Estimated Creatinine Clearance 26 ml/min; Glucose 83 mg/dl (70-99); Potassium 4.3 mmol/L (3.5-5.1); Sodium 132 mmol/L (135-145); eGFR 48.39
[2024-10-30] MEDS: SYNTHROID 88 MCG PO (05:19)
[2024-10-30] MEDS: HEPARIN 25000 UNITS/250 ML IV (05:57)
[2024-10-30 06:05] LABS: INR 1.86; PT 21.6 Sec (11.4-14.6)
[2024-10-30 06:07] LABS: APTT 84.9 Sec (23.4-35.0)
--- NOTE | 2024-10-30 06:56 | W.PN.HOSP.TC ---
Today's Communication/Plan
-
Holding heparin gtt until bleeding from IV site is resolved
Cardiology requested pulmonary evaluation
DC planning
Assessment / Plan
Assessment / Plan
Physical Exam
General: Comfortable and Conversant
HEENT: Moist mucous membranes
Respiratory:much less rhonchi bilaterally
Cardiac: S1/S2, Regular Rhythm, Murmur (Mechanical click consistent with AVR)
GI: Soft and Non Tender. Positive bowel sounds.
Musculoskeletal: No Cyanosis and No Edema
Skin: Warm and Dry
Neuro: Awake, Alert, Oriented and Nonfocal/grossly intact
Psych: Calm
Assessment/Plan
# Bleeding from Midline site
Stop Heparin gtt, c/w pressure dressing for now
NSTEMI
Non-STEMI with peak troponin of 1.[address] changes
-Cardiac cath 10/28
-Held Coumadin and continue Heparin Drip. INR 1.8 on 10/30. Coumaidn was resumed. Holding heparin due to bleeding IV Site
-Echo showed no wall motion abnormality
- post cath diuretic therapy/ severe pulmonary hypertension
Acute HFpEF
- Lost weigth
-Monitor Is&Os and Daily Weights
-Continue Toprol 25 mg daily
Hypotension
Concern for Mild Cardiogenic Shock
-Resolved
-Weaned off Levophed
Concern for Hypertensive Emergency on Admission
Labile primary Hypertension
-Patient was systolic 200+ mmHg in urgent care earlier today, and then 180s systolic in the ER
-BP dropped significantly following Furosemide in the ER
-Held oral antihypertensives for now
Hyponatremia, likely hypervolemic in setting of heart failure
-Studies suggest possibly CHF/fluid overload as the cause vs. [place]
-TSH normal and AM cortisol 19.5
-Continue PO fluid restriction
Right Ear Pain, mild/moderate otitis externa
She refused the drop because her ear felt better
Mild Right Lower Lobe Airspace Consolidation on CXR, possibly atelectasis vs pneumonia
-Patient given azithromycin and ceftriaxone in ED - continue antibiotics (but course of Zithromax completed)
Aortic Stenosis s/p Mechanical Aortic Valve Replacement
-Hold Coumadin and continue Heparin in preparation for cardiac cath
-Monitor INR Daily
Mitral regurgitation with mitral stenosis
Tricuspid regurgitation with pulmonary hypertension
Admission for GI bleed in October 2023 in November 2023
GIB w/ transfusion 08/2022 after starting Ribociclib
Right MCA stroke with M2 occlusion in setting of subtherapeutic INR while off Coumadin 07/15/22
-patient bridged with Lovenox prior to colonoscopy 07/10/21, but no Lovenox bridge post-colonoscopy
Hypothyroidism
-Continue levothyroxine
History of Breast Cancer 2018 treated with B/L mastectomy, patient refused chemotherapy and radiation, but eventually agreeable to Tamoxifen
-Patient maintained on fulvestrant as outpatient
History of Hodgkin's Lymphoma s/p XRT
Underweight
DVT Prophylaxis: Heparin Drip
Code Status: Full Code
Total time spent to see the patient, examine the patient, review data and lab results, discuss treatment plan with patient, nursing staff around 55 minutes
Anticipated Discharge: Within 24 hours
Subjective/Interval History
-
Date of Service: October 30, 2024
Slept well over night
No chest pain
Objective Data
-
Labs:
Laboratory Results
10/29/24 10/30/24 10/30/24
21:28 03:38 05:36
WBC 7.6
Hgb 10.8 L
Hct 32.3 L
Plt Count 308
PT 21.6 H
INR 1.86
APTT 174.4 H* 84.9 H
Sodium 132 L
Potassium 4.3
Chloride 95 L
Carbon Dioxide 26
BUN 50 H
Creatinine 1.2 H
Glucose 83
Calcium 8.4
Vital Signs:
Vital Signs
Temp Pulse Resp BP Pulse Ox
97.9 F 89 16 155/59 96
10/30/24 04:19 10/30/24 00:00 10/30/24 00:00 10/30/24 00:00 10/30/24 00:38
I&O
10/28/24 10/29/24 10/30/24
06:59 06:59 06:59
Intake Total 780 / 780
Output Total 150 / 150 800 / 800 390 / 390
Balance -150 / -150 -800 / -800 390 / 390
--- NOTE | 2024-10-30 08:39 | W.PN.CARDCBS ---
Today's Communication / Plan
-
Increase metoprolol ER 50 mg twice daily
Restart lisinopril 10 mg at bedtime
Agree with furosemide 20 mg orally daily
Hold Plavix for now
Do not restart heparin
Impression / Plan
-
PCP: Dr. Haynes
Cardiology: Dr. Michelle Justice
Oncology: Dr. Khan at [facility]
Impression:
Non-STEMI with peak troponin of 1.[address] changes which have resolved
Acute diastolic CHF
Abnormal ECG with lateral ST depression and negative troponin x 2
Admission for GI bleed in October 2023 in November 2023
GIB w/ transfusion 08/2022 after starting Ribociclib
Right MCA stroke with M2 occlusion in setting of subtherapeutic INR while off Coumadin 07/15/22
patient bridged with Lovenox prior to colonoscopy 07/10/21, but no Lovenox bridge post-colonoscopyMechanical AVR pediatric size 2006
Chronic warfarin OAC
Mitral regurgitation with mitral stenosis
Tricuspid regurgitation with pulmonary hypertension
h/o CVA 2005; recurrent right MCA stroke secondary to M2 occlusion in setting of subtherapeutic INR 06/2022
h/o Hodgkin's lymphoma treated with radiation to left neck and pelvis 1973
h/o breast CA 2018 treated with B/L mastectomy, patient refused chemotherapy and radiation, but eventually agreeable to Tamoxifen
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
Recurrence of breast cancer 2021 - did not tolerate Ibrance or RibociclibLabile HTN
Hypothyroidism
Lexiscan nuclear stress test 11/28/2021:�Positive EKG.� Perfusion imaging with small inferoseptal suggestive of significant bowel artifact vs ischemia
Echo 08/31/19: EF 55-60%, grade II diastolic dysfunction, moderate MR, mechanical aortic valve mean gradient 8 mmHg
Echo 07/16/21:�EF 70-75%, mild to mod MS with mean gradient 10 mmHg, [facility] [place] AVR mean gradient 13, PAP 43 mmHg
Echo 08/26/2022: Hyperdynamic LV.� EF 70 to 75%.� Mild to moderate MS peak/mean gradient 20/7 mmHg.� Moderate to severe MR.� Well-seated mechanical AVR with peak/mean gradient 11/6 mmHg without regurgitation.� Moderate to severe TR.� Moderate
pulmonary hypertension with PAP 50 to 55 mmHg.
Echo 02/10/2023: EF 60 to 65%.� Moderate mitral stenosis mean gradient 11 with severe MR.� Well-seated mechanical AVR with peak/mean gradient 15/8 mmHg, mild to moderate TR, mild pulmonary hypertension with PAP 45 to 48 mmHg.
Echo 11/19/2023: EF 70-75%, moderate MS with peak/mean gradients 15/8 mmHg, moderate MR, mechanical prosthetic AVR with peak/mean gradients 16/9 mmHg, trace AR, moderate TR, estimated PAP 30-35 mmHg
Echo 10/25/24: EF 55-60%, moderate mitral stenosis with mean gradient of 8 mmHg, mild to moderate MR, mechanical AVR with mean gradient of 10, no AI, mild to moderate TR with PA pressure 40-45
[facility] 10/28/2024: Eccentric 60-70 ostial to proximal Left main, difficult to advance IVUS catheter. iFR positive at 0.76. Elevated filling pressures, normal cardiac output/index, occluded right coronary artery with brisk collater, Nonobstructive plaque
of LAD and circumflex, pulmonary artery pressure 62/26, pulmonary capillary wedge pressure is 22, right atrial pressure is 11, cardiac index is 2.5als,.
Plan:
Overall, doing relatively well clinically despite her ostial left main and occluded right coronary artery. LV function had been preserved.
She has a coagulopathy and is bleeding. Will stop heparin, except INR of 1.8. Will hold Plavix for now. Risk benefit of Plavix unclear as it does not seem that her left main is an acute issue. 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
caused troponin of 1.3. Main focus should be on heart rate and blood pressure control.
She will need a higher dose of beta-angel luis as tachycardia is the biggest oil truck driver of her oxygen demand. Will reinstitute metoprolol ER 50 mg twice daily.
Agree with furosemide 20 mg a day.
Restart lisinopril 10 mg at bedtime.
Given her complicated situation would prefer that she stays overnight, tentative discharge in a.m.
Clinical summary: Complicated 69-year-old woman with mechanical aortic valve, history of Hodgkin's lymphoma and mantle radiation, breast cancer admitted from urgent care with hypertensive urgency and pulmonary edema, subsequently found to have 60 to
70% ostial left main stenosis with occluded right and [id number] collateral flow
PMH: As above, also hypertension, hyperlipidemia, presumed embolic stroke 2021, splenectomy, mastectomy
Progress Note - Pure Culture Operator
Subjective
Date of Service: October 30, 2024:
She feels well today. No dyspnea. No chest pain. Has been bleeding from IV, heparin now stopped. Had been on metoprolol ER 50 mg twice daily on admission, had also been on lisinopril 10 mg daily, was not on furosemide. Furosemide 40 mg IV daily
had been administered, now on furosemide 20 mg p.o. daily just started
Current meds: Levothyroxine, Protonix 40 mg a day, azithromycin, ceftriaxone, metoprolol ER 25 mg a day, heparin on hold, amlodipine 5 mg a day, clopidogrel 75 mg a day, warfarin 2.5 mg at bedtime, furosemide 20 mg a day
141/61, pulse 99, resp rate 14, afebrile, sats 96%, weight is 37.7 kg, weight was 38.1 kg, on admission was 43.5 kg, very petite, frail, head neck exam unremarkable, some crackles in the lung bases, prosthetic second heart sound, abdomen benign no
edema JVD okay
Hemoglobin is 10.8, platelets are 308, INR is 1.86, PTT was greater than 200, sodium 132, BUN and creatinine are 51.2, proBNP was 8270 on October 24, was 1020 in 2023, peak troponin was 1.28
ECG on October 25 sinus tachycardia with Q wave in [address] elevation in 3, inferolateral ST depression
Objective
Labs:
10/30/24 03:38
10/30/24 03:38
Labs
Hgb 10.8 g/dL (12.0-16.0) L 10/30/24 03:38
Hct 32.3 % (37.0-47.0) L 10/30/24 03:38
Plt Count 308 10^3/uL (130-400) 10/30/24 03:38
PT 21.6 Sec (11.4-14.6) H 10/30/24 05:36
INR 1.86 10/30/24 05:36
APTT 84.9 Sec (23.4-35.0) H 10/30/24 05:36
Sodium 132 mmol/L (135-145) L 10/30/24 03:38
Potassium 4.3 mmol/L (3.5-5.1) 10/30/24 03:38
BUN 50 mg/dl (7-17) H 10/30/24 03:38
Creatinine 1.2 mg/dL (0.6-1.0) H 10/30/24 03:38
Glucose 83 mg/dl (70-99) 10/30/24 03:38
Vital Signs and I&O:
Vital Signs
Temp Pulse Resp BP Pulse Ox
36.6 C 99 14 141/61 96
10/30/24 07:10 10/30/24 06:06 10/30/24 06:06 10/30/24 06:06 10/30/24 00:38
Vital Signs
Temp Pulse Resp BP Pulse Ox
36.6 C 99 14 141/61 96
10/30/24 07:10 10/30/24 06:06 10/30/24 06:06 10/30/24 06:06 10/30/24 00:38
Intake & Output
10/28/24 10/29/24 10/30/24 10/31/24
07:59 07:59 07:59 07:59
Intake Total 780 / 780
Output Total 300 / 300 650 / 650 390 / 390
Balance -300 / -300 -650 / -650 390 / 390
Physical Exam
Physical Exam
See above
--- NOTE | 2024-10-30 08:50 | CON.PUL ---
Consultation
Consultation Request
Date/Time Consultation Requested: 10/30/24
Date/Time Consultation Performed: 10/30/24
Performing Provider: Clementina
Reason for Consultation: PH
Medical History
-
History of Present Illness:
Patient is a 69-year-old female with previous history of aortic stenosis, Hodgkin's lymphoma breast cancer, hypertension presenting with cough, productive mucus and right ear pain admitted to [facility] on 10/24/2024. She was notably
hypertensive with systolic blood pressure greater than 200 chest x-ray demonstrating pulmonary edema. She presented with signs and symptoms of heart failure. He eventually underwent cardiac catheterization on 10/28/2024 with coronary disease noted
and pulmonary hypertension.
Denies known history of lung disease but she notes that she feels she has had pre-existing conditions since treatment for her lymphoma years ago from chemo/radiation. She notes cobalt exposures as well. She has never had PFTs before. Nonsmoker.
Her nephew is a articulation officer at [employer] (Dr Filippo Osborn).
Past Medical History
Past Medical History: Other (see other list)
Social History
Tobacco: Non-smoker
Alcohol: None
Drug: None
Family History
Family History: Reviewed & Not Pertinent
Allergies / Home Medications
Allergies
Allergy/AdvReac Type Severity Reaction Status Date / Time
palbociclib [From Ibrance] Allergy Tongue Verified 10/24/24 11:04
Swelling
Penicillins Allergy throat Verified 10/24/24 11:04
swelling-
tolertates
amoxicillin
tramadol Allergy throat Verified 10/24/24 11:04
swelling
Home Medications
�Medication �Instructions �Recorded �Confirmed �Last Taken �Type
fulvestrant 250 mg/5 mL 500 mg IM MONTHLY Cancer 07/16/21 10/24/24 28 Days Ago History
intramuscular syringe ~09/26/24
levothyroxine 88 mcg tablet 88 mcg PO DAILY AT 0700 Thyroid 07/16/21 10/24/24 10/24/24 History
omeprazole 10 mg capsule,delayed 20 mg PO DAILY Gastrointestinal 08/25/22 10/24/24 10/24/24 History
release issue
lisinopril 10 mg tablet 10 mg PO QPM Blood Pressure 10/28/23 10/24/24 10/23/24 History
warfarin 2.5 mg tablet 2.5 mg PO QPM Blood Clot 11/10/23 10/24/24 10/23/24 History
Prevention/Tx
metoprolol succinate 50 mg 50 mg PO BID Blood Pressure 10/24/24 10/24/24 10/24/24 History
tablet,extended release 24 hr
Review of Systems
-
History Source: Patient
All other systems: Negative unless noted
Vitals / Labs / Diagnostic Testing
Vital Signs
Temp Pulse Resp BP Pulse Ox
97.9 F 99 14 141/61 96
10/30/24 07:10 10/30/24 06:06 10/30/24 06:06 10/30/24 06:06 10/30/24 00:38
Lab Data
10/30/24 03:38
10/30/24 03:38
Laboratory Results
10/29/24 10/29/24 10/30/24
11:35 21:28 05:36
PT 21.6 H
INR 1.86
APTT 62.0 H 174.4 H* 84.9 H
Diagnostic Testing:
Physical Exam
-
HEENT: Normocephalic, Anicteric and Moist Mucous Membranes
Cardiovascular: S1/S2 and Regular Rhythm
Respiratory: Clear and Non-Labored Respirations
GI: Soft, Non Distended and Non Tender
Neurology: Awake, Alert, Oriented and No Motor Deficits
Skin: Warm, Dry and Good Color
General: Comfortable and Other (NAD)
Assessment
-
Patient is a 69-year-old female with previous history of aortic stenosis, Hodgkin's lymphoma breast cancer, hypertension presenting with cough, productive mucus and right ear pain admitted to [facility] on 10/24/2024. She was notably
hypertensive with systolic blood pressure greater than 200 chest x-ray demonstrating pulmonary edema. She presented with signs and symptoms of heart failure. He eventually underwent cardiac catheterization on 10/28/2024 with coronary disease noted
and pulmonary hypertension.
Acute HFpEF exacerbation
Volume overload/pulm edema on CXR
Mod-severe PH
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
Hodgkin lymphoma s/p XRT
Hypothyroidism
H/o breast cancer
Hypertension
Aortic stenosis
History of CVA
History of mechanical aortic valve replacement (2006)
UGIB, at 11/2023--likely NSAID use, declined EGD, colon negative
Chronic Cough due to post nasal drip
Plan
No oxygen was needed on admission, currently saturating 96% on RA
Adm for CHF, has PH noted on Cath
Prior history of lung disease is not noted but she reports exposure in her life
We discussed need for pulmonary OP w/u which can be done after discharge
CXR/CT obtained indicating volume overload, but will likely repeat further imaging/arenas as OP
Prior ECHO results are reviewed indicating preserved EF
Valvular disease noted
Cards following
Reviewed C results, low wedge 22
Underwent, BMI 17.4
Weight gain/nutrition encouraged
Will need outpatient pulmonary evaluation in our office for PFTs and 6MWT
Reviewed with patient
She was in agreement
Prolonged discussion today regarding plan of care with patient and her at bedside
Nephew is Dr Filippo Osborn at [employer] [facility]
Can otherwise assess for discharge planning per team
We will follow
Diagnostic Data
Chest X-Ray: 10/24/24- 1. Moderate acute interstitial cardiogenic pulmonary edema.
2. Small bilateral pleural effusions.
3. Mild subpleural airspace consolidation in the basilar right lower lobe. Diagnostic possibilities are (1) compressive subsegmental atelectasis or (2) right lower lobe pneumonia.
4. Severe calcific atherosclerotic plaque in the thoracic and abdominal aorta.
5. Previous surgical aortic valve replacement.
CT Scan: CHEST 10/27/23- No CT evidence for pulmonary embolism. No aortic dissection. There is atherosclerotic vascular disease of the aorta. No aneurysm. Faint scattered groundglass opacities in the lung bases most consistent with pneumonia.
Echo: 10/25/24- Left ventricle is small in size. Normal left ventricular systolic function. Left ventricular ejection fraction is 55-60% by visual assessment. Abnormal (paradoxical) septal motion. Moderate mitral stenosis. Mean gradient is 8mmHg.
Mild to moderate mitral regurgitation. Mechanical, prosthetic aortic valve. Peak/mean gradients are 17/10mmHg. No aortic regurgitation is seen. Mild to moderate tricuspid regurgitation. Mild pulmonary hypertension with eEstimated pulmonary artery
pressure of 40-45 mmHg. Compared to prior echocardiogram July 29, 2024, there is slight increase in mechanical aortic valve prosthetic gradients as well as mitral valve gradient. Prior echocardiogram also finds moderate mitral stenosis, peak
and mean gradients at that time were 22 and 6 mmHg with moderate mitral regurgitation. The mechanical aortic prosthesis had peak and mean gradients of 9 and 5 mmHg.
[facility] 10/28/24- HEMODYNAMICS : (mmHg) RA (m) : 11 - V (s/d,m) : 59/3, 13 - PA (s/d, m) : 62/26, 41 - PCWP (m) : 22
PA saturation: 68.3% on 2 L of oxygen via nasal cannula - AO saturation: 97.2% on 2 L of oxygen via nasal cannula - RA saturation: 69.5% on 2 L of oxygen via nasal cannula
Cardiac Output : 3.22 L/min - Cardiac Index : 2.54 L/min/m-2
Systemic vascular resistance: 2159 dsc^(-5) - Pulmonary vascular resistance: 5.89 loving unit - Heart rate: 96 bpm
CONCLUSIONS
1. Eccentric 60 to 70% ostial to proximal left main stenosis, difficult to visualize with IVUS due to inability to freely advance the IVUS catheter. IFR positive at 0.78.
2. 100% chronic total occlusion of proximal RCA with [id number] collaterals.
3. Significantly elevated right left-sided filling pressures with normal cardiac output in the setting of significantly elevated systemic vascular resistance and severe pulmonary hypertension.
PFT's:
Reports and relevant images were personally reviewed.
Total time spent on this consultation __75__ minutes which includes review of history, physical exam, medications, laboratory data, personal review of imaging, extensive review of outpatient records, discussion with care team and respiratory therapy.
[2024-10-30] MEDS: PROTONIX 40 MG PO (08:52)
[2024-10-30] MEDS: TOPROL XL 25 MG PO (08:52)
[2024-10-30] MEDS: PLAVIX 75 MG PO (08:52)
[2024-10-30] MEDS: ZITHROMAX 500 MG PO (08:52)
[2024-10-30] MEDS: NORVASC 5 MG PO (08:52)
[2024-10-30] MEDS: LASIX 20 MG PO (08:52)
--- NOTE | 2024-10-30 10:07 | VATNOTE ---
Left arm midline insertion site continues to bleed in spite of midline removal and pressure dressing. There appears to be a 1/8' cut in skin at insertion site. Site cleansed. Steri strip applied along with 2 quickclot dressings and a pressure
dressing. Primary care RN made aware and recommended suturing of the site if this procedure does not stop the bleeding. Dressing dry and intact at the time of this note. VAT will follow.
[2024-10-30] MEDS: STERILE WATER FOR INJECTION 10 ML IV (12:27)
[2024-10-30] MEDS: ROCEPHIN 1000 MG IV (12:27)
--- NOTE | 2024-10-30 17:18 | VATNOTE ---
No further bleeding from midline insertion site, dressing dry and intact.
[2024-10-30] MEDS: COUMADIN 2.5 MG PO (17:41)
[2024-10-30] MEDS: ROBITUSSIN DM 5 ML PO (17:41)
--- NOTE | 2024-10-30 18:34 | PTCARENOTE ---
Assumed care of patient at beginning of this shift from previous RN. On initial assessment patient's MAGDALENA old midline site with large amount of bloody drainage that saturated through dressing placed by shift superintendent RN. This RN removed dressing and
noted that previous insertion site continued to bleed (insertion site appeared to be a slit rather than a puncture). New dressing placed and VAT RN Emma up to assess; refer to her note from this morning. Heparin infusion had been stopped by prior RN
as per Dr Canchola. Dr JESÚS Finney made aware by this RN. Plavix later placed on hold but coumadin 2.5mg ordered; reviewed INR results as well as last PTT result. Confirmed with Dr JESÚS Finney that coumadin still ok to give prior to administration. Patient
had no further bleeding after VAT RN dressed area this morning. Patient was OOB to BR and chair throughout the day; steady gait. See worklist for full assessment.
[2024-10-30] MEDS: ZESTRIL 10 MG PO (21:05)
[2024-10-30] MEDS: TOPROL XL 50 MG PO (21:06)
[2024-10-30] MEDS: ATIVAN 0.5 MG PO (21:19)
--- NOTE | 2024-10-30 22:45 | PTCARENOTE ---
Left arm site where midline removed remains dry and intact. Pt requesting Ativan at HS for anxiety to help sleep. Pt had no other complaints at this time. Assessment care and vitals as charted.
[2024-10-31] VITALS: BP 110/41
[2024-10-31 03:17] VITALS: BP 92/42
[2024-10-31] MEDS: SYNTHROID 88 MCG PO (05:11)
[2024-10-31 05:41] VITALS: BP 128/40
[2024-10-31 06:00] VITALS: BP 129/44; BMI 17.2
[2024-10-31 06:01] LABS: INR 2.79; PT 29.4 Sec (11.4-14.6)
[2024-10-31 06:15] LABS: Blood Urea Nitrogen 64 mg/dl (7-17); Calcium 8.3 mg/dl (8.4-10.2); Carbon Dioxide 26 mmol/L (22-30); Chloride 97 mmol/L (98-107); Estimated Creatinine Clearance 22 ml/min; Glucose 89 mg/dl (70-99); Potassium 4.4 mmol/L (3.5-5.1); Sodium 133 mmol/L (135-145); eGFR 40.22
--- NOTE | 2024-10-31 06:35 | W.PN.HOSP.TC ---
Today's Communication/Plan
-
Discharge
Assessment / Plan
Assessment / Plan
Physical Exam
General: Comfortable and Conversant
HEENT: Moist mucous membranes
Respiratory:much less rales, no wheezes.
Cardiac: S1/S2, Regular Rhythm, Murmur (Mechanical click consistent with AVR)
GI: Soft and Non Tender. Positive bowel sounds.
Musculoskeletal: No Cyanosis and No Edema
Skin: Warm and Dry
Neuro: Awake, Alert, Oriented and Nonfocal/grossly intact
Psych: Calm
Assessment/Plan
# Bleeding from Midline site
Resolved
Stopped Heparin gtt, c/w pressure dressing for now
NSTEMI
Non-STEMI with peak troponin of 1.[address] changes
-Cardiac cath 10/28
-Held Coumadin and continue Heparin Drip. INR 1.8 on 10/30. Coumadin was resumed. INR at 2.7
-Echo showed no wall motion abnormality
- post cath diuretic therapy/ severe pulmonary hypertension
Acute HFpEF
- Lost weight
-Monitored Is&Os and Daily Weights
-Continue BB, Lasix, KRIS
Hypotension
Concern for Mild Cardiogenic Shock
-Resolved
-Weaned off Levophed
Concern for Hypertensive Emergency on Admission
Labile primary Hypertension
-Patient was systolic 200+ mmHg in urgent care earlier today, and then 180s systolic in the ER
-BP dropped significantly following Furosemide in the ER
-Held oral antihypertensives for now
# Hyponatremia.
-TSH normal and AM cortisol 19.5
Right Ear Pain, mild/moderate otitis externa
She refused the drop because her ear felt better
No pain or hearing problems.
Mild Right Lower Lobe Airspace Consolidation on CXR, possibly atelectasis vs pneumonia
-Patient given azithromycin and ceftriaxone in ED - finished.
Was seen by pulmonary: No Prior history of lung disease
We discussed need for pulmonary OP w/u which can be done after discharge
CXR/CT obtained indicating volume overload, but will likely repeat further imaging/arenas as OP
#Aortic Stenosis s/p Mechanical Aortic Valve Replacement
Resumed Coumadin, INR is therapeutic.
# Mitral regurgitation with mitral stenosis
Tricuspid regurgitation with pulmonary hypertension
Admission for GI bleed in October 2023 in November 2023
GIB w/ transfusion 08/2022 after starting Ribociclib
Right MCA stroke with M2 occlusion in setting of subtherapeutic INR while off Coumadin 07/15/22
-patient bridged with Lovenox prior to colonoscopy 07/10/21, but no Lovenox bridge post-colonoscopy
Hypothyroidism
-Continue levothyroxine
History of Breast Cancer 2018 treated with B/L mastectomy, patient refused chemotherapy and radiation, but eventually agreed to Tamoxifen
-Patient maintained on fulvestrant as outpatient
History of Hodgkin's Lymphoma s/p XRT
Underweight
DVT Prophylaxis: Heparin Drip
Code Status: Full Code
Total discharge time spent to see the patient, examine the patient, review data and lab results, discuss discharge plan with patient, nursing staff around 67 minutes
Anticipated Discharge: Today
Subjective/Interval History
-
Date of Service: October 31, 2024
Doing well
No sob and less cough
Objective Data
-
Labs:
Laboratory Results
10/31/24
05:20
PT 29.4 H
INR 2.79
Sodium 133 L
Potassium 4.4
Chloride 97 L
Carbon Dioxide 26
BUN 64 H
Creatinine 1.4 H
Glucose 89
Calcium 8.3 L
Vital Signs:
Vital Signs
Temp Pulse Resp BP Pulse Ox
97.9 F 80 17 129/44 94
10/31/24 03:13 10/31/24 06:00 10/31/24 06:00 10/31/24 06:10/31/24 04:55
I&O
10/29/24 10/30/24 10/31/24
06:59 06:59 06:59
Intake Total 780 / 780 120 / 120
Output Total 800 / 800 390 / 390 300 / 300
Balance -800 / -800 390 / 390 -180 / -180
[2024-10-31 08:00] VITALS: BP 131/57
[2024-10-31] MEDS: NORVASC 5 MG PO (08:59)
[2024-10-31] MEDS: LASIX 20 MG PO (09:00)
[2024-10-31] MEDS: TOPROL XL 50 MG PO (09:00)
[2024-10-31] MEDS: PROTONIX 40 MG PO (09:01)
--- NOTE | 2024-10-31 09:04 | W.PN.CARDCBS ---
Today's Communication / Plan
-
Okay for discharge, see below
Impression / Plan
-
PCP: Dr. Haynes
Cardiology: Dr. Michelle Justice
Oncology: Dr. Khan at [facility]
Impression:
Non-STEMI with peak troponin of 1.[address] changes which have resolved
Acute diastolic CHF
Abnormal ECG with lateral ST depression and negative troponin x 2
Admission for GI bleed in October 2023 in November 2023
GIB w/ transfusion 08/2022 after starting Ribociclib
Right MCA stroke with M2 occlusion in setting of subtherapeutic INR while off Coumadin 07/15/22
patient bridged with Lovenox prior to colonoscopy 07/10/21, but no Lovenox bridge post-colonoscopyMechanical AVR pediatric size 2006
Chronic warfarin OAC
Mitral regurgitation with mitral stenosis
Tricuspid regurgitation with pulmonary hypertension
h/o CVA 2005; recurrent right MCA stroke secondary to M2 occlusion in setting of subtherapeutic INR 06/2022
h/o Hodgkin's lymphoma treated with radiation to left neck and pelvis 1973
h/o breast CA 2018 treated with B/L mastectomy, patient refused chemotherapy and radiation, but eventually agreeable to Tamoxifen
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
Recurrence of breast cancer 2021 - did not tolerate Ibrance or RibociclibLabile HTN
Hypothyroidism
Lexiscan nuclear stress test 11/28/2021:�Positive EKG.� Perfusion imaging with small inferoseptal suggestive of significant bowel artifact vs ischemia
Echo 08/31/19: EF 55-60%, grade II diastolic dysfunction, moderate MR, mechanical aortic valve mean gradient 8 mmHg
Echo 07/16/21:�EF 70-75%, mild to mod MS with mean gradient 10 mmHg, [place] AVR mean gradient 13, PAP 43 mmHg
Echo 08/26/2022: Hyperdynamic LV.� EF 70 to 75%.� Mild to moderate MS peak/mean gradient 20/7 mmHg.� Moderate to severe MR.� Well-seated mechanical AVR with peak/mean gradient 11/6 mmHg without regurgitation.� Moderate to severe TR.� Moderate
pulmonary hypertension with PAP 50 to 55 mmHg.
Echo 02/10/2023: EF 60 to 65%.� Moderate mitral stenosis mean gradient 11 with severe MR.� Well-seated mechanical AVR with peak/mean gradient 15/8 mmHg, mild to moderate TR, mild pulmonary hypertension with PAP 45 to 48 mmHg.
Echo 11/19/2023: EF 70-75%, moderate MS with peak/mean gradients 15/8 mmHg, moderate MR, mechanical prosthetic AVR with peak/mean gradients 16/9 mmHg, trace AR, moderate TR, estimated PAP 30-35 mmHg
Echo 10/25/24: EF 55-60%, moderate mitral stenosis with mean gradient of 8 mmHg, mild to moderate MR, mechanical AVR with mean gradient of 10, no AI, mild to moderate TR with PA pressure 40-45
[facility] 10/28/2024: Eccentric 60-70 ostial to proximal Left main, difficult to advance IVUS catheter. iFR positive at 0.76. Elevated filling pressures, normal cardiac output/index, occluded right coronary artery with brisk collater, Nonobstructive plaque
of LAD and circumflex, pulmonary artery pressure 62/26, pulmonary capillary wedge pressure is 22, right atrial pressure is 11, cardiac index is 2.5als,.
Plan:
She looks well, okay for discharge
Recommended cardiac medications at discharge:
Metoprolol ER 75 mg twice daily (increased dose)
Furosemide 20 mg a day (new)
Lisinopril 10 mg a day at bedtime
Warfarin 2.5 mg daily
She adamantly refuses statin therapy.
Check BMP in 1 week
INR on Friday
We will arrange for cardiac follow-up
Clinical summary: Complicated 69-year-old woman with mechanical aortic valve, history of Hodgkin's lymphoma and mantle radiation, breast cancer admitted from urgent care with hypertensive urgency and pulmonary edema, subsequently found to have 60 to
70% ostial left main stenosis with occluded right and [id number] collateral flow
PMH: As above, also hypertension, hyperlipidemia, presumed embolic stroke 2021, splenectomy, mastectomy
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
Subjective
Date of Service: October 31, 2024:
Current medications: Levothyroxine 88 mcg a day, Protonix, amlodipine 5 mg a day, Plavix 75 mg a day on hold, warfarin 2.5 mg a day, furosemide 20 mg a day, metoprolol ER 50 mg twice daily and lisinopril 10 mg daily
129/44, 92/42, pulse 80, weight is 37.4 kg, which is stable, petite, frail, head neck exam unremarkable, lungs with improved aeration, prosthetic second heart sound, no edema, JVD okay
INR is 2.79
BUN and creatinine are 64 and 1.4, potassium is 4.4, sodium is 133
Objective
Labs:
10/30/24 03:38
10/31/24 05:20
Labs
Hgb 10.8 g/dL (12.0-16.0) L 10/30/24 03:38
Hct 32.3 % (37.0-47.0) L 10/30/24 03:38
Plt Count 308 10^3/uL (130-400) 10/30/24 03:38
PT 29.4 Sec (11.4-14.6) H 10/31/24 05:20
INR 2.79 10/31/24 05:20
APTT 84.9 Sec (23.4-35.0) H 10/30/24 05:36
Sodium 133 mmol/L (135-145) L 10/31/24 05:20
Potassium 4.4 mmol/L (3.5-5.1) 10/31/24 05:20
BUN 64 mg/dl (7-17) H 10/31/24 05:20
Creatinine 1.4 mg/dL (0.6-1.0) H 10/31/24 05:20
Glucose 89 mg/dl (70-99) 10/31/24 05:20
Vital Signs and I&O:
Vital Signs
Temp Pulse Resp BP Pulse Ox
36.7 C 80 17 129/44 94
10/31/24 07:05 10/31/24 06:00 10/31/24 06:00 10/31/24 06:00 10/31/24 04:55
Vital Signs
Temp Pulse Resp BP Pulse Ox
36.7 C 80 17 129/44 94
10/31/24 07:05 10/31/24 06:00 10/31/24 06:00 10/31/24 06:00 10/31/24 04:55
Intake & Output
10/29/24 10/30/24 10/31/24 11/01/24
07:59 07:59 07:59 07:59
Intake Total 780 / 780 120 / 120
Output Total 650 / 650 390 / 390 300 / 300
Balance -650 / -650 390 / 390 -180 / -180
Physical Exam
Physical Exam
See above
--- NOTE | 2024-10-31 09:32 | VATNOTE ---
Vat rounds: Left arm dressing taken down per patient's request. No further bleeding noted. c/o pain around the left arm. Warm compress apllied for comfort. Will continue to monitor closely.
[2024-10-31 10:00] VITALS: BP 111/41
--- NOTE | 2024-10-31 10:01 | W.PN.PUL3 ---
Today's Communication / Plan
-
Stable on RA, no new complaints
Ready to go home
Discharge planning per team
We discussed OP FU again today
Assessment
-
Patient is a 69-year-old female with previous history of aortic stenosis, Hodgkin's lymphoma breast cancer, hypertension presenting with cough, productive mucus and right ear pain admitted to [facility] on 10/24/2024. She was notably
hypertensive with systolic blood pressure greater than 200 chest x-ray demonstrating pulmonary edema. She presented with signs and symptoms of heart failure. He eventually underwent cardiac catheterization on 10/28/2024 with coronary disease noted
and pulmonary hypertension.
Acute HFpEF exacerbation
Volume overload/pulm edema on CXR
Mod-severe PH
Chronic conditions NOTARY PUBLIC:
Hodgkin lymphoma s/p XRT
Hypothyroidism
H/o breast cancer
Hypertension
Aortic stenosis
History of CVA
History of mechanical aortic valve replacement (2006)
UGIB, at 11/2023--likely NSAID use, declined EGD, colon negative
Chronic Cough due to post nasal drip
Plan
No oxygen was needed on admission, currently saturating 96% on RA
Adm for CHF, has PH noted on Cath
Prior history of lung disease is not noted but she reports exposure in her life
We discussed need for pulmonary OP w/u which can be done after discharge
CXR/CT obtained indicating volume overload, but will likely repeat further imaging/arenas as OP
Prior ECHO results are reviewed indicating preserved EF
Valvular disease noted
Cards following
Reviewed [facility] results, low wedge 22
Underwent, BMI 17.4
Weight gain/nutrition encouraged
Will need outpatient pulmonary evaluation in our office for PFTs and 6MWT
Reviewed with patient
She was in agreement
Prolonged discussion today regarding plan of care with patient and her at bedside
Nephew is Dr Filippo Osborn at [facility]
Can otherwise assess for discharge planning per team
I reviewed this again today, all questions answered
Diagnostic Data
Chest X-Ray: 10/24/24- 1. Moderate acute interstitial cardiogenic pulmonary edema.
2. Small bilateral pleural effusions.
3. Mild subpleural airspace consolidation in the basilar right lower lobe. Diagnostic possibilities are (1) compressive subsegmental atelectasis or (2) right lower lobe pneumonia.
4. Severe calcific atherosclerotic plaque in the thoracic and abdominal aorta.
5. Previous surgical aortic valve replacement.
CT Scan: CHEST 10/27/23- No CT evidence for pulmonary embolism. No aortic dissection. There is atherosclerotic vascular disease of the aorta. No aneurysm. Faint scattered groundglass opacities in the lung bases most consistent with pneumonia.
Echo: 10/25/24- Left ventricle is small in size. Normal left ventricular systolic function. Left ventricular ejection fraction is 55-60% by visual assessment. Abnormal (paradoxical) septal motion. Moderate mitral stenosis. Mean gradient is 8mmHg.
Mild to moderate mitral regurgitation. Mechanical, prosthetic aortic valve. Peak/mean gradients are 17/10mmHg. No aortic regurgitation is seen. Mild to moderate tricuspid regurgitation. Mild pulmonary hypertension with eEstimated pulmonary artery
pressure of 40-45 mmHg. Compared to prior echocardiogram July 29, 2024, there is slight increase in mechanical aortic valve prosthetic gradients as well as mitral valve gradient. Prior echocardiogram also finds moderate mitral stenosis, peak
and mean gradients at that time were 22 and 6 mmHg with moderate mitral regurgitation. The mechanical aortic prosthesis had peak and mean gradients of 9 and 5 mmHg.
[facility] 10/28/24- HEMODYNAMICS : (mmHg) RA (m) : 11 - V (s/d,m) : 59/3, 13 - PA (s/d, m) : 62/26, 41 - PCWP (m) : 22
PA saturation: 68.3% on 2 L of oxygen via nasal cannula - AO saturation: 97.2% on 2 L of oxygen via nasal cannula - RA saturation: 69.5% on 2 L of oxygen via nasal cannula
Cardiac Output : 3.22 L/min - Cardiac Index : 2.54 L/min/m-2
Systemic vascular resistance: 2159 dsc^(-5) - Pulmonary vascular resistance: 5.89 loving unit - Heart rate: 96 bpm
CONCLUSIONS
1. Eccentric 60 to 70% ostial to proximal left main stenosis, difficult to visualize with IVUS due to inability to freely advance the IVUS catheter. IFR positive at 0.78.
2. 100% chronic total occlusion of proximal RCA with [id number] collaterals.
3. Significantly elevated right left-sided filling pressures with normal cardiac output in the setting of significantly elevated systemic vascular resistance and severe pulmonary hypertension.
PFT's:
Reports and relevant images were personally reviewed.
Total time spent on this encounter __45__ minutes which includes review of history, physical exam, medications, laboratory data, personal review of imaging, extensive review of outpatient records, discussion with care team and respiratory therapy.
Subjective Data
-
Date of Service:
Date of Service: October 31, 2024
Chief Complaint: Pulmonary Follow Up
Subjective:
No acute events ON, remains stable on RA
Ready to go home
Objective Data
Data Reviewed
Vital Signs / I&O / Oxygen:
Vital Signs
Temp Pulse Resp BP Pulse Ox
98.1 F 80 17 129/44 94
10/31/24 07:05 10/31/24 06:00 10/31/24 06:00 10/31/24 06:00 10/31/24 04:55
Intake and Output
10/30/24 10/31/24 11/01/24
06:59 06:59 06:59
Intake Total 780 / 780 120 / 120
Output Total 390 / 390 300 / 300
Balance 390 / 390 -180 / -180
SaO2 94
Nasal Cannula flow liters per 2
minute
Physical Exam
General: Comfortable and Other (NAD)
HEENT: Normocephalic, Anicteric and Moist Mucous Membranes
Cardiovascular: S1-S2 and Regular Rhythm
Respiratory: Clear and Non-Labored Respirations
GI: Soft, Non Distended and Non Tender
Neurology: Awake, Alert, Oriented and No Motor Deficits
Skin: Warm, Dry and Good Color
Labs/Micro/Reports
Lab Data
10/30/24 03:38
10/31/24 05:20
Laboratory Results
10/31/24
05:20
PT 29.4 H
INR 2.79
--- NOTE | 2024-10-31 11:46 | W.DCSUMMARY ---
Discharge Summary
Discharge Data
Date of Admission: 10/24/24
Date of Discharge: 10/31/24
-
Pending Results: No
Hospital Course
69 years old female presented to the emergency room with cough. She complained of right ear pain also. She reported some shortness of breath with coughing. Chest radiography was consistent with pulmonary edema. She was noticed to have high
blood pressure on arrival. She had visited urgent care and was advised to go to the hospital she was given intravenous Lasix and EKG showed changes with ST depression. She denied chest pain. Roll Tender was consulted to evaluate the patient.
Patient was diagnosed with acute diastolic heart failure. INR was elevated. Blood pressure dropped significantly after diuretic therapy. Blood pressure medications were held. Troponin was noted to be negative initially and then later started to
go up with peak at 1.280. Patient was ruled in for non-ST elevation myocardial infarction. She was admitted to high-level care and received Levophed support while hypotensive. Plan was to proceed with cardiac catheterization. Coumadin was held.
Echocardiogram showed left ventricular ejection fraction 55 to 60% with abnormal paradoxical septal motion, moderate mitral stenosis, mild to moderate mitral regurgitation, mechanical prosthetic aortic valve with peak/mean gradients are 17/10mmHg,
no regurgitation. Left heart catheterization was performed by Dr. Willams on 10/28/24 showed eccentric 60-70 ostial to proximal Left main, was difficult to advance IVUS catheter. Elevated filling pressures, normal cardiac output/index, occluded right
coronary artery, nonobstructive plaque of LAD and circumflex, pulmonary artery pressure 62/26, pulmonary capillary wedge pressure is 22. Patient was started initially on Plavix with heparin drip and resuming Coumadin. She started to have bleeding
from midline. INR started to go up to therapeutic level. Heparin was stopped and Plavix was held. Roll Tender adjusted her medications with titration of Toprol dose. Dr. Willams requested pulmonary evaluation. Pulmonary doctor Dr. Mcrae saw the
patient with recommendation to follow in the office patient was not hypoxic and remained hemodynamically stable. She was able to ambulate independently. Patient was discharged home in a stable condition.
Discharge Plan
-
Patient Disposition: Home (Routine Discharge)
Discharge Diagnosis/Procedures: Non-STEMI
Acute diastolic CHF
Diet: Low Sodium
Blood Work: BMP IN ONE WEEK. INR ON THURSDAY 11/02
Instructions: *DCA Heart Failure Instructions
Stand Alone Forms: DC Instructions- Cath/EP Lab
Referrals:
Melanie Haynes MD [Family Provider] -
Christa Mcrae DO [Active] - in two to three weeks (PFTs)
Mikey Resendez MD [Active] - 01/11/25 9:40 am (We will also arrange for an earlier appointment)
Prescriptions:
New
furosemide 20 mg Tablet
20 mg PO DAILY Qty: 30 0RF
metoprolol succinate [Toprol XL] 25 mg tablet extended release 24 hr
25 mg PO BID Qty: 60 0RF
Continued
levothyroxine 88 MCG tablet
88 mcg PO DAILY AT 0700
Patient Comments:
10/24/24--MUST BE BRAND NAME SYNTHROID Pt advised to have family/spouse bring in her Synthroid from home.
fulvestrant 250 MG/5 ML syringe
500 mg IM MONTHLY
omeprazole 10 mg Capsule,Delayed Release(Dr/Ec)
20 mg PO DAILY
Patient Comments:
MUST BE BRAND NAME PRILOSEC OTC
lisinopril 10 mg tablet
10 mg PO QPM
warfarin 2.5 mg Tablet
2.5 mg PO QPM
metoprolol succinate 50 mg tablet extended release 24 hr
50 mg PO BID
Discharge Orders:
Discharge Patient (As Directed); Ordered 10/31/24
Ordered By: Mauri Canchola
Discharge Date and Time
Discharge Date/Time: 10/31/24 13:17
Print Language: SLOVENIAN
--- NOTE | 2024-10-31 13:32 | CM ---
Met with patient who was preparing for d/c. The patient says she feels ready to go home today. IMM completed. Declined offer for VN. Her will provide a ride home.
Plan home today.
== END 2024-10-31 13:17 | disposition home or self-care (01) | DRG 280 ==
LOC: IMU 16:56
PROVIDERS: Internal Medicine Cardiovascular Disease; Internal Medicine Interventional Cardiology; Nurse Practitioner; Physician Assistant; Physician Assistant Medical; Registered Nurse; ADMITTING PHYSICIAN Hospitalist; ATTENDING PHYSICIAN Internal Medicine; CONSULT PHYSICIAN Internal Medicine; CONSULT PHYSICIAN Internal Medicine Cardiovascular Disease; EMERGENCY PHYSICIAN Emergency Medicine; FAMILY PHYSICIAN Emergency Medicine
PROC: B2111ZZ Fluoroscopy of Multiple Coronary Arteries using Low Osmolar Contrast (ICD-10-PCS; 2024-10-28)
PROC: 4A033BC Measurement of Arterial Pressure, Coronary, Percutaneous Approach (ICD-10-PCS; 2024-10-28)
PROC: 4A023N6 Measurement of Cardiac Sampling and Pressure, Right Heart, Percutaneous Approach (ICD-10-PCS; 2024-10-28)
PROC: B240ZZ3 Ultrasonography of Single Coronary Artery, Intravascular (ICD-10-PCS; 2024-10-28)
DX: I21.4 Non-ST elevation (NSTEMI) myocardial infarction (principal); I50.33 Acute on chronic diastolic (congestive) heart failure; R57.0 Cardiogenic shock; J18.9 Pneumonia, unspecified organism; E87.1 Hypo-osmolality and hyponatremia; J98.11 Atelectasis; Z68.1 Body mass index [BMI] 19.9 or less, adult; I16.1 Hypertensive emergency; I11.0 Hypertensive heart disease with heart failure; R79.1 Abnormal coagulation profile; I08.3 Combined rheumatic disorders of mitral, aortic and tricuspid valves; Z95.2 Presence of prosthetic heart valve; I25.10 Atherosclerotic heart disease of native coronary artery without angina pectoris; E89.0 Postprocedural hypothyroidism; C50.919 Malignant neoplasm of unspecified site of unspecified female breast; Z85.72 Personal history of non-Hodgkin lymphomas; Z86.73 Personal history of transient ischemic attack (TIA), and cerebral infarction without residual deficits; Z90.81 Acquired absence of spleen; Z90.13 Acquired absence of bilateral breasts and nipples; Z87.891 Personal history of nicotine dependence; Z88.0 Allergy status to penicillin; Z88.5 Allergy status to narcotic agent; Z79.01 Long term (current) use of anticoagulants; I27.20 Pulmonary hypertension, unspecified; R63.6 Underweight; Z92.3 Personal history of irradiation; Z79.890 Hormone replacement therapy; I25.82 Chronic total occlusion of coronary artery; D64.9 Anemia, unspecified; K21.9 Gastro-esophageal reflux disease without esophagitis; Y84.2 Radiological procedure and radiotherapy as the cause of abnormal reaction of the patient, or of later complication, without mention of misadventure at the time of the procedure; Z11.52 Encounter for screening for COVID-19
CPT/HCPCS: 71046; 76937; 80048; 80053; 82533; 82962; 83735; 83880; 83930; 83935; 84132; 84145; 84300; 84443; 84484; 85025; 85027; 85347; 85610; 85730; 87502; 87811; 93005; 93306; 93456; 93799; 94640; 96374; 96375; 97162; 97166; 99152; 99153; 99285; C1753; C1769; C1894; Q9967

== ENCOUNTER → 2024-11-03 13:50 | Outpatient (REF) | payer OTHER, SELFPAY ==
[2024-11-03 16:08] LABS: INR 3.68; PT 36.8 Sec (11.4-14.6)
[2024-11-03 16:17] LABS: Blood Urea Nitrogen 79 mg/dl (7-17); Calcium 8.8 mg/dl (8.4-10.2); Carbon Dioxide 26 mmol/L (22-30); Chloride 98 mmol/L (98-107); Glucose 115 mg/dl (70-99); Potassium 4.5 mmol/L (3.5-5.1); Sodium 135 mmol/L (135-145); eGFR 37.03
== END ==
LOC: HWLAB 13:50
PROVIDERS: ATTENDING PHYSICIAN Internal Medicine; FAMILY PHYSICIAN Emergency Medicine
DX: I21.4 Non-ST elevation (NSTEMI) myocardial infarction (principal); E87.1 Hypo-osmolality and hyponatremia
CPT/HCPCS: 36415; 80048; 85610

== ENCOUNTER → 2024-11-11 12:41 | Outpatient (REF) | payer OTHER, SELFPAY ==
[2024-11-11 16:02] LABS: Blood Urea Nitrogen 63 mg/dl (7-17); Carbon Dioxide 23 mmol/L (22-30); Chloride 101 mmol/L (98-107); Glucose 94 mg/dl (70-99); Potassium 5.2 mmol/L (3.5-5.1); Sodium 133 mmol/L (135-145); eGFR 43.96
[2024-11-11 16:03] LABS: INR 2.41; PT 26.2 Sec (11.4-14.6)
== END ==
LOC: HWLAB 12:41
PROVIDERS: ATTENDING PHYSICIAN Internal Medicine; FAMILY PHYSICIAN Emergency Medicine; OTHER PHYSICIAN Internal Medicine Cardiovascular Disease; REFERRING PHYSICIAN Internal Medicine Cardiovascular Disease
DX: I21.4 Non-ST elevation (NSTEMI) myocardial infarction (principal); Z79.01 Long term (current) use of anticoagulants; Z95.2 Presence of prosthetic heart valve
CPT/HCPCS: 36415; 80048; 85610

== ENCOUNTER → 2024-11-24 09:21 | Outpatient (REF) | payer OTHER, SELFPAY ==
[2024-11-24 12:06] LABS: APTT 39.7 Sec (23.4-35.0); INR 4.53
[2024-11-24 14:03] LABS: Blood Urea Nitrogen 56 mg/dl (7-17); Calcium 9.1 mg/dl (8.4-10.2); Carbon Dioxide 20 mmol/L (22-30); Chloride 104 mmol/L (98-107); Glucose 73 mg/dl (70-99); Potassium 4.9 mmol/L (3.5-5.1); Sodium 137 mmol/L (135-145); eGFR 43.96
== END ==
LOC: HWLAB 09:21
PROVIDERS: ATTENDING PHYSICIAN Internal Medicine Cardiovascular Disease; REFERRING PHYSICIAN Physician Assistant Medical
DX: I10 Essential (primary) hypertension (principal); Z79.01 Long term (current) use of anticoagulants
CPT/HCPCS: 36415; 80048; 85610; 85730

== ENCOUNTER → 2024-12-02 10:33 | Outpatient (REF) | payer OTHER, SELFPAY ==
[2024-12-02 13:25] LABS: INR 4.21; PT 40.7 Sec (11.4-14.6)
[2024-12-04 23:56] LABS: CA 27-29 25.4 U/mL (<=39.0)
== END ==
LOC: HWLAB 10:33
PROVIDERS: ATTENDING PHYSICIAN Internal Medicine Hematology & Oncology; REFERRING PHYSICIAN Internal Medicine Cardiovascular Disease
DX: Z79.01 Long term (current) use of anticoagulants (principal); Z95.2 Presence of prosthetic heart valve; C50.012 Malignant neoplasm of nipple and areola, left female breast; D50.9 Iron deficiency anemia, unspecified; R13.10 Dysphagia, unspecified
CPT/HCPCS: 36415; 85610; 86300

== ENCOUNTER → 2024-12-13 13:39 | Outpatient (REF) | payer OTHER, SELFPAY ==
[2024-12-13 15:23] LABS: % Basophils 2.8 % (0-2); % Eosinophils 4.1 % (0-6); % Immature Granulocytes 0.3 % (0-0.5); % Lymphocytes 12.3 % (20.5-51.1); % Monocytes 8.8 % (1.7-9.3); % Neutrophils 71.7 % (42.2-75.2); Absolute Basophils 0.2 10^3/uL (0-0.2); Absolute Eosinophils 0.3 10^3/uL (0-0.7); Absolute Lymphocytes 0.8 10^3/uL (1.2-3.4); Absolute Monocytes 0.6 10^3/uL (0.1-0.6); Absolute Neutrophils 4.6 10^3/uL (1.4-6.5); Hematocrit 32.6 % (37.0-47.0); Hemoglobin 10.6 g/dL (12.0-16.0); Mean Corp Hgb Conc. 32.5 g/dL (33.0-37.0); Mean Corpuscular Hgb 28.7 pg (27.0-31.0); Mean Corpuscular Volume 88.3 fL (81.0-99.0); Mean Platelet Volume 10.5 fL (7.4-10.4); Nucleated Red Blood Cells % 0 %; Platelet Count 372 10^3/uL (130-400); Red Blood Cell Count 3.69 10^6/uL (4.20-5.40); Red Cell Dist. Width 17.1 % (11.5-14.5); White Blood Cell Count 6.4 10^3/uL (4.8-10.8)
[2024-12-13 15:32] LABS: INR 3.22; PT 32.8 Sec (11.4-14.6)
[2024-12-13 15:33] LABS: APTT 40.1 Sec (23.4-35.0)
[2024-12-13 15:54] LABS: Iron 54 ug/dl (37-170)
[2024-12-13 16:03] LABS: Percent Saturation 17 % (20-50); Total Iron Binding Capacity 308 ug/dl (265-497)
[2024-12-13 16:26] LABS: Ferritin 54.6 ng/ml (11.1-264.0)
== END ==
LOC: HWLAB 13:39
PROVIDERS: ATTENDING PHYSICIAN Internal Medicine Hematology & Oncology; REFERRING PHYSICIAN Internal Medicine Cardiovascular Disease
DX: C50.012 Malignant neoplasm of nipple and areola, left female breast (principal); D50.9 Iron deficiency anemia, unspecified; R13.10 Dysphagia, unspecified
CPT/HCPCS: 36415; 82728; 83540; 83550; 85025; 85610; 85730

== ENCOUNTER → 2024-12-28 11:38 | Outpatient (REF) | payer OTHER, SELFPAY ==
[2024-12-28 15:54] LABS: ALT (SGPT) 22 U/L (0-35); AST (SGOT) 37 U/L (14-36); Alkaline Phosphatase 132 U/L (38-126); Blood Urea Nitrogen 34 mg/dl (7-17); Calcium 9.1 mg/dl (8.4-10.2); Carbon Dioxide 22 mmol/L (22-30); Chloride 105 mmol/L (98-107); Glucose 111 mg/dl (70-99); Potassium 4.9 mmol/L (3.5-5.1); Sodium 137 mmol/L (135-145); Total Bilirubin 0.6 mg/dl (0.2-1.3); Total Protein 9.6 g/dl (6.3-8.2); eGFR 48.39
[2024-12-28 16:01] LABS: INR 3.38
[2024-12-28 16:08] LABS: APTT 36.8 Sec (23.4-35.0)
[2024-12-28 16:24] LABS: TSH 4.09 uIU/ml (0.47-4.68)
== END ==
LOC: HWLAB 11:38
PROVIDERS: ATTENDING PHYSICIAN Internal Medicine Endocrinology, Diabetes & Metabolism; REFERRING PHYSICIAN Internal Medicine Cardiovascular Disease
DX: E89.0 Postprocedural hypothyroidism (principal); Z79.01 Long term (current) use of anticoagulants
CPT/HCPCS: 36415; 80053; 84443; 85610; 85730

== ENCOUNTER → 2024-12-28 14:19 | Outpatient (REF) | payer OTHER, SELFPAY ==
[2024-12-28 14:30] LABS: % Eosinophils 3.4 % (0-6); % Immature Granulocytes 0.4 % (0-0.5); % Lymphocytes 9.6 % (20.5-51.1); % Monocytes 10.9 % (1.7-9.3); % Neutrophils 74.7 % (42.2-75.2); Absolute Basophils 0.1 10^3/uL (0-0.2); Absolute Eosinophils 0.3 10^3/uL (0-0.7); Absolute Lymphocytes 0.7 10^3/uL (1.2-3.4); Absolute Monocytes 0.8 10^3/uL (0.1-0.6); Absolute Neutrophils 5.4 10^3/uL (1.4-6.5); Hematocrit 32.8 % (37.0-47.0); Hemoglobin 10.7 g/dL (12.0-16.0); Mean Corp Hgb Conc. 32.6 g/dL (33.0-37.0); Mean Corpuscular Hgb 28.5 pg (27.0-31.0); Mean Corpuscular Volume 87.5 fL (81.0-99.0); Mean Platelet Volume 9.5 fL (7.4-10.4); Platelet Count 362 10^3/uL (130-400); Red Blood Cell Count 3.75 10^6/uL (4.20-5.40); Red Cell Dist. Width 16.8 % (11.5-14.5); White Blood Cell Count 7.3 10^3/uL (4.8-10.8)
== END ==
LOC: OIDL 14:19
PROVIDERS: ATTENDING PHYSICIAN Internal Medicine Hematology & Oncology
DX: C50.111 Malignant neoplasm of central portion of right female breast (principal); E83.50 Unspecified disorder of calcium metabolism; D53.9 Nutritional anemia, unspecified
CPT/HCPCS: 85025

== ENCOUNTER → 2025-01-06 12:35 | Outpatient (REF) | payer OTHER, SELFPAY | LOC: HWRAD 12:35 | PROVIDERS: ATTENDING PHYSICIAN Nurse Practitioner Adult Health; FAMILY PHYSICIAN Emergency Medicine | DX: R06.02 Shortness of breath (principal); I50.33 Acute on chronic diastolic (congestive) heart failure | CPT/HCPCS: 71046 ==

== ENCOUNTER → 2025-01-19 09:24 | Outpatient (REF) | payer OTHER, SELFPAY ==
[2025-01-19 13:13] LABS: % Basophils 2.3 % (0-2); % Eosinophils 3.2 % (0-6); % Immature Granulocytes 0.3 % (0-0.5); % Lymphocytes 8.5 % (20.5-51.1); % Monocytes 7.6 % (1.7-9.3); % Neutrophils 78.1 % (42.2-75.2); Absolute Basophils 0.2 10^3/uL (0-0.2); Absolute Eosinophils 0.2 10^3/uL (0-0.7); Absolute Lymphocytes 0.6 10^3/uL (1.2-3.4); Absolute Monocytes 0.5 10^3/uL (0.1-0.6); Absolute Neutrophils 5.1 10^3/uL (1.4-6.5); Hematocrit 36.8 % (37.0-47.0); Hemoglobin 11.9 g/dL (12.0-16.0); Mean Corp Hgb Conc. 32.3 g/dL (33.0-37.0); Mean Corpuscular Hgb 28.3 pg (27.0-31.0); Mean Corpuscular Volume 87.6 fL (81.0-99.0); Mean Platelet Volume 10.5 fL (7.4-10.4); Nucleated Red Blood Cells % 0 %; Platelet Count 325 10^3/uL (130-400); Red Cell Dist. Width 16.8 % (11.5-14.5); White Blood Cell Count 6.6 10^3/uL (4.8-10.8)
[2025-01-19 13:19] LABS: Iron 74 ug/dl (37-170)
[2025-01-19 13:22] LABS: INR 3.86; PT 38.1 Sec (11.4-14.6)
[2025-01-19 13:23] LABS: APTT 41.3 Sec (23.4-35.0)
[2025-01-19 13:35] LABS: Percent Saturation 28 % (20-50); Total Iron Binding Capacity 262 ug/dl (265-497)
== END ==
LOC: HWLAB 09:24
PROVIDERS: ATTENDING PHYSICIAN Internal Medicine Cardiovascular Disease; FAMILY PHYSICIAN Emergency Medicine; REFERRING PHYSICIAN Internal Medicine Hematology & Oncology
DX: Z79.01 Long term (current) use of anticoagulants (principal); C50.012 Malignant neoplasm of nipple and areola, left female breast; D50.9 Iron deficiency anemia, unspecified; R13.10 Dysphagia, unspecified
CPT/HCPCS: 36415; 82728; 83540; 83550; 85025; 85610; 85730

== ENCOUNTER → 2025-02-16 10:23 | Outpatient (REF) | payer OTHER, SELFPAY ==
[2025-02-16 11:23] LABS: % Basophils 1.5 % (0-2); % Eosinophils 4.1 % (0-6); % Immature Granulocytes 0.6 % (0-0.5); % Lymphocytes 8.7 % (20.5-51.1); % Monocytes 7.2 % (1.7-9.3); % Neutrophils 77.9 % (42.2-75.2); Absolute Basophils 0.1 10^3/uL (0-0.2); Absolute Eosinophils 0.3 10^3/uL (0-0.7); Absolute Lymphocytes 0.6 10^3/uL (1.2-3.4); Absolute Monocytes 0.5 10^3/uL (0.1-0.6); Absolute Neutrophils 5.5 10^3/uL (1.4-6.5); Hematocrit 37.8 % (37.0-47.0); Hemoglobin 12.2 g/dL (12.0-16.0); Mean Corp Hgb Conc. 32.3 g/dL (33.0-37.0); Mean Corpuscular Hgb 28.1 pg (27.0-31.0); Mean Corpuscular Volume 87.1 fL (81.0-99.0); Mean Platelet Volume 10.7 fL (7.4-10.4); Nucleated Red Blood Cells % 0 %; Platelet Count 336 10^3/uL (130-400); Red Blood Cell Count 4.34 10^6/uL (4.20-5.40); Red Cell Dist. Width 16.1 % (11.5-14.5); White Blood Cell Count 7.1 10^3/uL (4.8-10.8)
[2025-02-16 11:30] LABS: INR 4.14; PT 40.2 Sec (11.4-14.6)
[2025-02-16 13:03] LABS: Iron 71 ug/dl (37-170)
[2025-02-16 14:25] LABS: Percent Saturation 26 % (20-50); Total Iron Binding Capacity 265 ug/dl (265-497)
== END ==
LOC: HWRAD 10:23
PROVIDERS: ATTENDING PHYSICIAN Otolaryngology; OTHER PHYSICIAN Internal Medicine Cardiovascular Disease; REFERRING PHYSICIAN Internal Medicine Hematology & Oncology
DX: J32.0 Chronic maxillary sinusitis (principal); R09.82 Postnasal drip; C50.111 Malignant neoplasm of central portion of right female breast; E83.50 Unspecified disorder of calcium metabolism; D53.9 Nutritional anemia, unspecified; D68.9 Coagulation defect, unspecified; E55.9 Vitamin D deficiency, unspecified; Z51.11 Encounter for antineoplastic chemotherapy; M81.0 Age-related osteoporosis without current pathological fracture; D50.0 Iron deficiency anemia secondary to blood loss (chronic); Z79.01 Long term (current) use of anticoagulants; C50.012 Malignant neoplasm of nipple and areola, left female breast; D50.9 Iron deficiency anemia, unspecified; R13.10 Dysphagia, unspecified
CPT/HCPCS: 36415; 70486; 82728; 83540; 83550; 85025; 85610

== ENCOUNTER → 2025-03-08 10:35 | Outpatient (REF) | payer OTHER, SELFPAY ==
[2025-03-08 12:08] LABS: PT 37.6 Sec (11.4-14.6)
== END ==
LOC: HWLAB 10:35
PROVIDERS: ATTENDING PHYSICIAN Internal Medicine Cardiovascular Disease
DX: Z79.01 Long term (current) use of anticoagulants (principal)
CPT/HCPCS: 36415; 85610

== ENCOUNTER → 2025-03-28 09:19 | Outpatient (REF) | payer OTHER, SELFPAY ==
[2025-03-28 12:19] LABS: % Basophils 2.5 % (0-2); % Eosinophils 3.3 % (0-6); % Immature Granulocytes 0.3 % (0-0.5); % Lymphocytes 8.1 % (20.5-51.1); % Monocytes 8.3 % (1.7-9.3); % Neutrophils 77.5 % (42.2-75.2); Absolute Basophils 0.2 10^3/uL (0-0.2); Absolute Eosinophils 0.2 10^3/uL (0-0.7); Absolute Lymphocytes 0.5 10^3/uL (1.2-3.4); Absolute Monocytes 0.5 10^3/uL (0.1-0.6); Hematocrit 37.4 % (37.0-47.0); Mean Corp Hgb Conc. 32.1 g/dL (33.0-37.0); Mean Corpuscular Hgb 27.5 pg (27.0-31.0); Mean Corpuscular Volume 85.6 fL (81.0-99.0); Mean Platelet Volume 10.5 fL (7.4-10.4); Nucleated Red Blood Cells % 0 %; Platelet Count 323 10^3/uL (130-400); Red Blood Cell Count 4.37 10^6/uL (4.20-5.40); Red Cell Dist. Width 16.4 % (11.5-14.5); White Blood Cell Count 6.4 10^3/uL (4.8-10.8)
[2025-03-28 12:41] LABS: ALT (SGPT) 18 U/L (0-35); AST (SGOT) 37 U/L (14-36); Albumin 3.6 g/dl (3.5-5.0); Alkaline Phosphatase 128 U/L (38-126); Blood Urea Nitrogen 36 mg/dl (7-17); Calcium 8.7 mg/dl (8.4-10.2); Carbon Dioxide 21 mmol/L (22-30); Chloride 108 mmol/L (98-107); Glucose 112 mg/dl (70-99); HDL Cholesterol 23 mg/dl; Iron 59 ug/dl (37-170); LDL Cholesterol, Calculated 126 mg/dl; Potassium 4.8 mmol/L (3.5-5.1); Sodium 135 mmol/L (135-145); Total Bilirubin 0.4 mg/dl (0.2-1.3); Total Cholesterol 179 mg/dl (50-199); Total Protein 10.9 g/dl (6.3-8.2); Triglyceride 154 mg/dl (10-149); Very Low Density Lipoprotein 30 mg/dl (0-30); eGFR 40.22
[2025-03-28 12:52] LABS: Percent Saturation 23 % (20-50); Total Iron Binding Capacity 255 ug/dl (265-497)
[2025-03-28 13:32] LABS: INR 3.42; PT 34.2 Sec (11.4-14.6)
== END ==
LOC: HWLAB 09:19
PROVIDERS: ATTENDING PHYSICIAN Internal Medicine Cardiovascular Disease; REFERRING PHYSICIAN Internal Medicine Hematology & Oncology
DX: Z79.01 Long term (current) use of anticoagulants (principal); I25.10 Atherosclerotic heart disease of native coronary artery without angina pectoris; D64.9 Anemia, unspecified; C50.111 Malignant neoplasm of central portion of right female breast; E83.50 Unspecified disorder of calcium metabolism; D53.9 Nutritional anemia, unspecified; D68.9 Coagulation defect, unspecified; E55.9 Vitamin D deficiency, unspecified; Z51.11 Encounter for antineoplastic chemotherapy; M81.0 Age-related osteoporosis without current pathological fracture; D50.0 Iron deficiency anemia secondary to blood loss (chronic); C50.012 Malignant neoplasm of nipple and areola, left female breast; D50.9 Iron deficiency anemia, unspecified; R13.10 Dysphagia, unspecified
CPT/HCPCS: 36415; 80053; 80061; 82728; 83540; 83550; 85025; 85610

== ENCOUNTER 2025-04-30 12:24 | Emergency (ER) | payer OTHER, SELFPAY ==
[2025-04-30 12:24] VITALS: BMI 18.3
--- NOTE | 2025-04-30 13:28 | ED.GENMED ---
History of Present Illness
General
Chief Complaint: Abdominal Symptoms
Source: patient
Exam Limitations: none
Time Seen by Provider: 04/30/25 13:07
History of Present Illness
History of Present Illness:
69-year-old female with history of lymphoma requiring radiation and subsequent breast cancer with mastectomy bilaterally and splenectomy and history of small bowel obstruction presents complaining of abdominal discomfort. This has been going on for
3 days in the center of the abdomen radiates up the chest but not to the back. She does note other abdominal discomfort that is generalized. She denies any diarrhea. No vomiting. No fever. She has a history of reflux and is on Prilosec 40 mg
twice a day. She is even increased this to help her symptoms. The pain is worse when she eats or drinks. No other complaints. She has a mechanical valve and is on Coumadin
Past History
Past History
ED Past Medical History: Cancer (Hodgkin's lymphoma, breast), CVA, GERD, HTN, Valvular disease and Hypothyroidism
ED Past Surgical History: Cardiac (Mechanical aortic valve replacement), , Orthopedic and Other (Thyroidectomy, splenectomy, mastectomy)
Patient has exhibited threatening behavior?: No
PSI?: No
Social History
Tobacco: Non-smoker
Alcohol: None
Drug: None
Personal:
Living: with family
Employment: Employed
Family History
Family History: Other (Noncontributory)
Phy Exam
Physical Exam
Physical Exam:
General: Well-appearing female no acute respiratory distress
HEENT: Normocephalic atraumatic
Heart: Regular rate and rhythm
Lungs: Clear no wheeze
Abdomen is soft tender in the epigastric region no guarding
Extremities: No cyanosis
Course
Orders/Labs/Results
Orders:
Orders
04/30/25 12:31
Electrocardiogram (*1) Urgent
Reason for Study: Abdominal Pain
04/30/25 12:32
EKG- Treatment ONCE
04/30/25 13:26
CT Abd/pel W Iv And Oral Contr Urgent
Comment:
Reason For Exam: abdominal pain
Complete Blood Count/With Diff Urgent
Comprehensive Metabolic Panel Urgent
Lipase Urgent
Troponin I Urgent
Iohexol [Omnipaque] See Protocol PO NOW STA
Vital Signs
Initial and Last Documented VS:
Initial Vital Signs
Temp Pulse Resp Pulse Ox
97.7 F 78 16 99
04/30/25 12:29 04/30/25 12:29 04/30/25 12:29 04/30/25 12:29
Last Documented Vital Signs
Temp Pulse Resp Pulse Ox
97.7 F 78 16 99
04/30/25 12:29 04/30/25 12:29 04/30/25 12:29 04/30/25 12:29
MDM/Problems Addressed
Differential Diagnosis Includes:
Abdominal and chest discomfort. Consider gastritis versus esophagitis versus ACS but unlikely given atypical presentation. Also consider biliary colic or pancreatitis. Check labs including troponin and lipase. Will order CT of the abdomen given
the tenderness. Patient is quite thin and will require oral contrast especially considering her extensive abdominal surgical history
*Pulse Oximetry
SaO2: 99
Oxygen Mode of Delivery: Room air
ED Attending Note
-
Portions of this chart may have been created with voice recognition software.� Occasional wrong word or��sound alike� substitutions may have occurred due to the inherent limitations of voice recognition software.
Discharge Plan
Departure
Prescriptions:
No Action
levothyroxine 88 MCG tablet
88 mcg PO DAILY AT 0700
Patient Comments:
10/24/24--MUST BE BRAND NAME SYNTHROID Pt advised to have family/spouse bring in her Synthroid from home.
fulvestrant 250 MG/5 ML syringe
500 mg IM MONTHLY
omeprazole 10 mg Capsule,Delayed Release(Dr/Ec)
20 mg PO DAILY
Patient Comments:
MUST BE BRAND NAME PRILOSEC OTC
lisinopril 10 mg tablet
10 mg PO QPM
warfarin 2.5 mg Tablet
2.5 mg PO QPM
metoprolol succinate 50 mg tablet extended release 24 hr
50 mg PO BID
furosemide 20 mg Tablet
20 mg PO DAILY Qty: 30 0RF
metoprolol succinate [Toprol XL] 25 mg tablet extended release 24 hr
25 mg PO BID Qty: 60 0RF
Referrals:
Melanie Haynes MD [Family Provider, Internal Medicine]
Interventions
Interventions:
*Risk Screen - Suicide Last Done: 04/30/25 12:29
*Neglect/Abuse Screening Last Done: 04/30/25 12:29
Discharge Date and Time
Print Language: MALTESE
[2025-04-30] MEDS: OMNIPAQUE 50 ML PO (13:30)
[2025-04-30 13:48] LABS: Hematocrit 40.1 % (37.0-47.0); Hemoglobin 13.2 g/dL (12.0-16.0); Mean Corp Hgb Conc. 32.9 g/dL (33.0-37.0); Mean Corpuscular Volume 83.7 fL (81.0-99.0); Nucleated Red Blood Cells % 0 %; Platelet Count 288 10^3/uL (130-400); Red Cell Dist. Width 16.7 % (11.5-14.5)
[2025-04-30 14:16] LABS: Troponin I < 0.012 ng/ml
[2025-04-30 14:24] LABS: ALT (SGPT) 28 U/L (0-35); AST (SGOT) 40 U/L (14-36); Albumin 3.8 g/dl (3.5-5.0); Alkaline Phosphatase 128 U/L (38-126); Blood Urea Nitrogen 47 mg/dl (7-17); Calcium 8.8 mg/dl (8.4-10.2); Carbon Dioxide 24 mmol/L (22-30); Chloride 103 mmol/L (98-107); Estimated Creatinine Clearance 23 ml/min; Glucose 100 mg/dl (70-99); Lipase 201 U/L (23-300); Potassium 5.0 mmol/L (3.5-5.1); Sodium 131 mmol/L (135-145); Total Protein 9.9 g/dl (6.3-8.2); eGFR 40.22
[2025-04-30 14:31] LABS: PT 59.2 Sec (11.4-14.6)
[2025-04-30 14:37] LABS: INR 7.04
[2025-04-30 15:03] VITALS: BP 193/61
[2025-04-30 15:06] VITALS: BP 190/58
[2025-04-30 16:00] VITALS: BP 168/61
[2025-04-30] MEDS: TOPROL XL 50 MG PO (16:09)
[2025-04-30] MEDS: PROTONIX 40 MG PO (17:18)
[2025-04-30 17:19] VITALS: BP 158/59
== END 2025-04-30 18:56 | disposition home or self-care (01) ==
LOC: EMR 12:24
PROVIDERS: Physician Assistant; EMERGENCY PHYSICIAN Emergency Medicine; FAMILY PHYSICIAN Emergency Medicine
DX: R10.9 Unspecified abdominal pain (principal); R07.9 Chest pain, unspecified; E03.9 Hypothyroidism, unspecified; I10 Essential (primary) hypertension; Z86.73 Personal history of transient ischemic attack (TIA), and cerebral infarction without residual deficits; Z85.71 Personal history of Hodgkin lymphoma; Z95.2 Presence of prosthetic heart valve; Z79.01 Long term (current) use of anticoagulants; Z85.3 Personal history of malignant neoplasm of breast; Z90.13 Acquired absence of bilateral breasts and nipples; Z90.81 Acquired absence of spleen; Z92.3 Personal history of irradiation
CPT/HCPCS: 99285; 71046; 74177; 80053; 83690; 84484; 85025; 85610; 93005; Q9967

== ENCOUNTER 2025-05-02 12:36 | Inpatient (IN) | payer OTHER, SELFPAY ==
[2025-05-02] VITALS (12 sets, daily range): BP systolic 94–149; BP diastolic 35–67; BMI 18.2; BMI 17.5
--- NOTE | 2025-05-02 08:38 | ED.GENMED ---
History of Present Illness
General
Chief Complaint: Rectal Bleeding
Source: patient and spouse
Time Seen by Provider: 05/02/25 08:24
History of Present Illness
History of Present Illness:
This patient is a 69-year-old female presents emergency department with complaints of black bowel movement x 2 earlier this morning, associated with bright red blood in the toilet bowl. She describes the stool as looking like 'black tar'. Patient
states that she was here 2 days ago with complaints of abdominal discomfort had an extensive workup that time and was noted to have an elevated INR at 7. She discontinued her Coumadin at her physician direction given this lab value. Her last dose
of Coumadin was Friday evening. In the last few days she has been reporting pain when she tries to swallow. It feels 'worse than' reflux, described as a 'spasm' that 'grabs me' in the mid sternum area as she tries to swallow. As a result she has
had poor p.o. intake over the last few days. She denies associated chest pain, worsening shortness of breath, nausea, vomiting, back pain. She does note that she feels lightheaded all day long, no episodes of syncope.
Past History
Past History
ED Past Medical History: Cancer (Hodgkin's lymphoma, breast), CVA, GERD, HTN, Valvular disease and Hypothyroidism
ED Past Surgical History: Cardiac (Mechanical aortic valve replacement), , Orthopedic and Other (Thyroidectomy, splenectomy, mastectomy)
Patient has exhibited threatening behavior?: No
PSI?: No
Social History
Tobacco: Non-smoker
Alcohol: None
Drug: None
Personal:
Living: with family
Employment: Employed
Family History
Family History: Other (Noncontributory)
Phy Exam
Physical Exam
Physical Exam:
GENERAL: Alert , in no apparent distress
EYE: pupils equal and reactive, conjunctiva pink
NECK: Supple, no significant adenopathy.
ENT: o/p clr, mmm.
CARDIAC: Regular rate and rhythm .
LUNGS: Clear breath sounds bilaterally, no acute respiratory distress, no wheezes/rales/rhonchi
ABDOMEN: Soft, diffuse mild nonspecific tenderness, no r/g, no cvat
NEUROLOGICAL: Alert and oriented, no focal neuro deficits
SKIN: Warm and dry, skin intact.
MUSCULOSKELETAL: No edema, well perfused.
PSYCH: Normal and appropriate interaction.
Course
Orders/Labs/Results
Orders:
Orders
05/02/25 Breakfast
Full Liquids
At Your Request: Full Participation
Does patient need a safe tray?: No
05/02/25 08:24
Cardiac Monitoring- Treatment ONCE
IV Insert/Care/Rem.- Treatment PRN
Pantoprazole 80 mg/100 ml Nss [Protonix] 80 mg in 100 ml IV NOW
05/02/25 08:25
Electrocardiogram (*1) Stat
Reason for Study: Other
Other Reason for Exam: GI Bleed
EKG- Treatment ONCE
05/02/25 10:29
Complete Blood Count/No Diff Urgent
Comprehensive Metabolic Panel Urgent
PTT Urgent
Prothrombin Time Urgent
05/02/25 11:10
Type+Screen Routine
[employer] Wristband Number:
05/02/25 11:16
Pantoprazole [Protonix IV] 80 mg IV NOW STA
05/02/25 11:18
0.9% Sodium Chloride [Nss (Preservative Free)] 20 ml IV NOW STA
05/02/25 11:46
Code Status As Directed
Resuscitation Status: Full Code
GASTROINTESTINAL CONSULT Routine
Consulting Provider: Donnell Locke
Was physician already notified: Yes
Reason for consult: GIB w melena and elevated INR
VTE Contraindication Routine
VTE Mechanical Device Contraindication: Medical Contraindication
Pharmocologic Contraindication: Bleeding
Bisacodyl [Dulcolax] 10 mg RECTAL [id number] PRN
Docusate W/Senna [Senokot-S] 1 tablet PO BIDPRN PRN
Polyethylene Glycol Powder [Miralax] 17 grams PO DAILYPRN PRN
Activity As Directed
Activity Level: As Tolerated
Vital Signs As Directed
Frequency: Per unit guidelines
05/02/25 12:08
Code Status As Directed
Resuscitation Status: Do not resuscitate
Reached after discussion with pt or family/Healthcare POA: Yes
05/02/25 12:09
DNR Bracelet Application ONCE
05/02/25 12:10
Admit/Transfer Patient As Directed
Co-Sign Provider:
Level of Care: Inpatient admission
Assign to:: Medical/Surgical
Physician / Group: Hospitalist: Otto
Diagnosis: GIB
Reason for Hospitalization: GIB
Expected length of stay greater than two midnights?: Yes
ELOS- Estimated Length of Stay in days: 2
I certify the patient meets the requirements for IP care: Yes
PRN Pain Medication Management As Directed
May give lesser potent ordered pain med per pt: Yes
preference::
Protocol:: Medication orders for pain may be administered in a
manner that supports deferring to patient preference
when the pt is:
- Requesting an ordered lesser potent pain medication.
Least to most potent pain medications are defined
as: acetaminophen < NSAID < tramadol < opioids
(morphine, oxycodone, hydromorphone).
- Requesting a lesser dose of the same medication IF
ORDERED.
- Requesting a less intrusive route of administration
if both routes are prescribed by the provider (PO <
IV).
05/02/25 13:59
H&H Q6H
05/02/25 Dinner
NPO
Allow oral meds: Yes
Allow clear liquids: No
NPO with Ice Chips: Yes
05/02/25 18:00
Lisinopril [Zestril] 10 mg PO QPM
05/02/25 18:30
H&H Q6H
05/02/25 20:00
Metoprolol Xl [Toprol Xl] 50 mg PO BID
05/03/25 00:30
H&H Q6H
05/03/25 06:00
BMP [Basic Metabolic Panel] IN AM
Levothyroxine [Synthroid] 88 mcg PO DAILY@0600
05/03/25 06:30
H&H Q6H
05/03/25 08:00
Furosemide [Lasix] 20 mg PO SuTuThSa@0800
05/04/25 06:00
BMP [Basic Metabolic Panel] IN AM
05/04/25 08:00
Furosemide [Lasix] 40 mg PO MoWeFr@0800
05/05/25 06:00
BMP [Basic Metabolic Panel] IN AM
Abnormal Lab Results
05/02/25
10:29
RBC 4.07 L 10^6/uL
(4.20-5.40)
Hgb 11.2 L g/dL
(12.0-16.0)
Hct 33.4 L %
(37.0-47.0)
RDW 16.1 H %
(11.5-14.5)
MPV 10.8 H fL
(7.4-10.4)
PT 45.2 H Sec
(11.4-14.6)
APTT 43.0 H Sec
(23.4-35.0)
Sodium 128 L mmol/L
(135-145)
Potassium 6.2 H* mmol/L
(3.5-5.1)
Carbon Dioxide 20 L mmol/L
(22-30)
BUN 80 H mg/dl
(7-17)
Creatinine 1.9 H mg/dL
(0.6-1.0)
AST 37 H U/L
(14-36)
Total Protein 9.1 H g/dl
(6.3-8.2)
05/02/25 10:29
05/02/25 10:29
Vital Signs
Initial and Last Documented VS:
Initial Vital Signs
Temp Pulse Resp BP Pulse Ox
97.5 F 77 18 97/35 100
05/02/25 08:02 05/02/25 08:02 05/02/25 08:02 05/02/25 08:02 05/02/25 08:02
Last Documented Vital Signs
Temp Pulse Resp BP Pulse Ox
97.8 F 72 14 111/49 100
05/02/25 13:34 05/02/25 13:35 05/02/25 13:35 05/02/25 13:35 05/02/25 13:34
*Pulse Oximetry
SaO2: 100
Oxygen Mode of Delivery: Room air
Patient hypoxic: no
*Critical Care Note
Total Time (30-74mins, 75-104mins- exclusive of procedures): Not Applicable
Update Note
Update Note:
Patient presents to the Emergency Department with bloody stool
Number and Complexity of Problems Addressed at the Encounter
� Chronic conditions affecting care:
� Acute Exacerbation and/or Progression of Chronic Illness:
� Differential Diagnosis includes: But not limited to elevated INR, diverticulosis, gastritis, gastric ulcer, etc. etc.
Amount and/or Complexity of Data to be Reviewed and Analyzed
� I performed an independent evaluation of and my interpretation is:
EKG: Read by me, normal sinus rhythm, normal rate, normal axis, no acute ischemia
CT:
Xrays:
Laboratory Studies: INR 4.93, hemoglobin stable
Other:
� Review of other/old records reveals: INR was 7.042 days ago associated with a normal hemoglobin
� Clinical information was obtained by an independent historian: who is bedside
� Prescriptions/Medications Considered but not given:
� Further testing considered but not performed:
Risk of Complications and/or Morbidity or Mortality of Patient Management
� Social determinants of health affecting care:
� Discussion with other providers (PCP, Hospitalists, Consultants, etc):
� Escalation of care including admission/observation vs risk of discharge considered: INR trending down, hemoglobin stable, vital stable, no further bleeding. Case discussed with Dr. Ko from GI recommends holding on vitamin
K given that INR is already trending down. [place] text sent to hospitalist Dr. Rosario for admission.
ED Attending Note
-
Portions of this chart may have been created with voice recognition software.� Occasional wrong word or��sound alike� substitutions may have occurred due to the inherent limitations of voice recognition software.
Discharge Plan
Departure
Patient Disposition: Admit
Date of Disposition: 05/02/25
Time of Disposition: 11:07
Admit to: Telemetry
Presentation/result/management discussed w/ accepting MD/DO: Hospitalist
Condition: Fair
Discharge Problem:
GI bleed
Interventions
Interventions:
*Risk Screen - Suicide Last Done: 05/02/25 08:02
*General Assessment Last Done: 05/02/25 09:04
*Neglect/Abuse Screening Last Done: 05/02/25 09:04
*ED- Fall Risk Assessment Last Done: 05/02/25 09:04
*ED COVID-19 Vaccine History Last Done: 05/02/25 09:04
*Nursing Disposition Last Done: 05/02/25 13:35
[facility]ip[facility]-Gmr[facility] Assessment Last Done: 05/02/25 09:16
ED- Cardiac Assessment Last Done: 05/02/25 09:16
ED- Pulmonary Assessment Last Done: 05/02/25 09:16
Discharge Date and Time
Discharge Date/Time: 05/02/25 13:20
[2025-05-02 10:38] LABS: Hematocrit 33.4 % (37.0-47.0); Hemoglobin 11.2 g/dL (12.0-16.0); Mean Corp Hgb Conc. 33.5 g/dL (33.0-37.0); Mean Corpuscular Volume 82.1 fL (81.0-99.0); Platelet Count 240 10^3/uL (130-400); Red Cell Dist. Width 16.1 % (11.5-14.5)
[2025-05-02 10:46] LABS: INR 4.93; PT 45.2 Sec (11.4-14.6)
[2025-05-02 10:47] LABS: APTT 43.0 Sec (23.4-35.0)
--- NOTE | 2025-05-02 11:23 | CON.GI ---
Consultation
-
Date/Time Consultation Performed: 05/02/25
Performing Provider: Wesly Locke MD
Reason for Consultation: melena
Medical History
Chief Complaint / HPI
Chief Complaint: melena
History of Present Illness:
The patient is a 69-year-old female past medical history send who presents with black stools. She was recently emergency room with dyspeptic symptoms and odynophagia, discharged on Protonix. At that point her INR was noted to be 7. She then noted
black stools. She is currently having less odynophagia and abdominal pain though has not tried to eat, as this was worse with eating. She denies any fever, chills, chest pain, shortness of breath at rest, though does have some fatigue and
dizziness when trying to move around. She has a history of obscure GI bleeding, in October 2023, her EGD and colonoscopy were essentially unremarkable. She had a repeat EGD with capsule placement in the small intestine in 2023 which by report was
okay, and since then has had no significant bleeding. She has had radiation to her chest in the past years ago for lymphoma.
Past Medical History
Past Medical History: Other (Obscure GI bleed, CVA, AVR, Hodgkin's lymphoma, breast cancer, hypertension, hypothyroid, Coronary disease, status post OH, heart failure with preserved ejection fraction, mitral valve stenosis, gastroparesis)
Past Surgical History: Other (Mechanical AVR, bilateral mastectomy, thyroidectomy, splenectomy)
Social History
Tobacco: Former Smoker
Alcohol: Occasional
Family History
Family History: Reviewed & Not Pertinent
Allergies / Home Medications
Allergy/AdvReac Type Severity Reaction Status Date / Time
palbociclib (From [employer]) Allergy Tongue Verified 05/02/25 08:07
Swelling
Penicillins Allergy throat Verified 05/02/25 08:07
swelling-
tolertates
amoxicillin
tramadol Allergy throat Verified 05/02/25 08:07
swelling
�Medication �Instructions �Recorded
levothyroxine 88 mcg tablet 88 mcg PO DAILY AT 0700 Thyroid 07/16/21
lisinopril 10 mg tablet 10 mg PO QPM Blood Pressure 10/28/23
warfarin 2.5 mg tablet 2.5 mg PO QPM Blood Clot 11/10/23
Prevention/Tx
metoprolol succinate 50 mg 50 mg PO BID Blood Pressure 10/24/24
tablet,extended release 24 hr
pantoprazole 40 mg tablet,delayed 40 mg PO DAILY #30 tabs 04/30/25
release (Protonix)
celecoxib 100 mg capsule 100 mg PO BIDPRN PRN MILD PAIN 05/02/25
furosemide 20 mg tablet 20 mg PO SUTUTHSA 05/02/25
furosemide 40 mg tablet (Lasix) 40 mg PO MOWEFR 05/02/25
Review of Systems
-
All other systems: A 12 pt ROS was Negative except as stated above in HPI
Vital Signs
Temp Pulse Resp BP Pulse Ox
97.5 F 69 16 124/43 100
05/02/25 08:02 05/02/25 10:45 05/02/25 10:45 05/02/25 10:00 05/02/25 08:41
Physical Exam
Exam
General: NAD
HEENT: MMM, anicteric, no lymphadenopathy
Heart: Regular, mechanical heart sound
Lungs: CTA bilaterally
Abdomen: normal bowel sounds, soft, no tenderness, no rebound or guarding, no masses, bruits or ascites
Extremeties: no edema
Skin: no rashes
Results
WBC 6.9 10^3/uL (4.8-10.8) 05/02/25 10:29
Hgb 11.2 g/dL (12.0-16.0) L 05/02/25 10:29
Hct 33.4 % (37.0-47.0) L 05/02/25 10:29
MCV 82.1 fL (81.0-99.0) 05/02/25 10:29
Plt Count 240 10^3/uL (130-400) 05/02/25 10:29
PT 45.2 Sec (11.4-14.6) H 05/02/25 10:29
INR 4.93 D 05/02/25 10:29
APTT 43.0 Sec (23.4-35.0) H 05/02/25 10:29
Diagnostic Image Results:
Prior GI Procedures:
EGD:
10/2023:
Impression: - No gross lesions in the entire esophagus.
- Z-line irregular, 33 cm from the incisors. Biopsied.
- Small hiatal hernia.
- No gross lesions in the entire stomach.
- Normal examined duodenum.
Colonoscopy:
10/2023:
Impression: - The examined portion of the ileum was normal.
- Tortuous colon.
- Internal hemorrhoids.
- No specimens collected.
Assessment / Plan
-
1. GI bleed: In the setting of supratherapeutic INR, with some dyspeptic and odynophagia symptoms, likely related to esophagitis. Her INR has drifted down, and she is hemodynamically stable, with not significant anemia now. This is a complicated
scenario given her history of CVA in the past off of anticoagulation. At this point we discussed that if she has no further signs of bleeding and has no further GI symptoms with a therapeutic INR then would hold on endoscopy. If she is to have
still continued significant symptoms or still signs of bleeding despite not supratherapeutic INR then we will need to proceed with endoscopy after she drifts down with heparin bridge per cardiology. Will start full liquid diet today, continue PPI
and close observation.
-
-
Thank you for consultation and allowing me to participate in the patient's care. Please call the investigation specialist GI physician during the after hours with any questions or concerns.
[2025-05-02] MEDS: NSS (PRESERVATIVE FREE) 20 ML IV (11:24)
[2025-05-02] MEDS: PROTONIX 100 IV (11:25)
[2025-05-02] MEDS: PROTONIX IV 80 MG IV (11:25)
--- NOTE | 2025-05-02 11:52 | HPS.HSE ---
Addendum entered and electronically signed by Darvin Menjivar, 05/02/25 15:00:
Acute blood loss anemia from GI bleed
Addendum entered and electronically signed by Darvin Menjivar, DO 05/02/25 14:34:
Yes, GI bleed is associated with/exacerbated by Warfarin.
Original Note:
Family Physician
-
Family Physician: Melanie Haynes MD
Chief Complaint
-
Upper abdominal pain, melena
History of Present Illness
Ms. Osborn is a 69-year-old female with a complicated medical history who presented with upper abdominal discomfort and black tarry stools. She was recently seen in the emergency room where she was discharged on Protonix for dyspepsia and
odynophagia, her INR at that time was 7. Her abdominal symptoms have since improved but she then developed black tarry stools and so returned for further evaluation and management. Her complicated medical history includes recurrent GI bleeding (no
clear sources of bleeding identified after workup including capsule endoscopy), Hodgkin's lymphoma (status post radiation 1973), aortic stenosis (status post replacement with pediatric mechanical valve due to scarring from radiation, on warfarin),
mitral stenosis and regurgitation, pulmonary hypertension, HFpEF, breast cancer (2018, bilateral mastectomy, declined chemo and radiation, later treated with tamoxifen), CVA (right MCA stroke 2005, recurrent 07/15/2022 while off warfarin with
subtherapeutic INR), hypertension, and hypothyroidism. She is experiencing generalized weakness and fatigue. She denies chest pain or shortness of breath. She follows closely with her bowling alley floors installer outpatient and requests cardiology involvement
while inpatient pending any potential procedures. She is tearful when discussing her many comorbidities. She has made clear that her wishes are DO NOT RESUSCITATE, she does not want CPR or intubation in emergency.
In the ED, she has remained normotensive, afebrile, and saturating properly on room air. Her labs are remarkable for a hemoglobin of 11.2 (down from 13.2 on 04/30/2025), INR of 4.9 (was 7.0 on 04/30/2025), sodium 128, potassium 6.2, creatinine 1.9
with a BUN of 80. CT of her abdomen pelvis with IV and oral contrast showed right pelvic sidewall lymphadenopathy concerning for malignant lymph nodes, patchy pulmonary opacities in the bilateral lung bases concerning for pneumonia or pulmonary
metastasis, small right pleural effusion. She was started on IV Protonix and admitted for further evaluation and management.
Medical History
Past Medical History
Past Medical History: Reports Other
Additional Past Medical History:
recurrent GI bleeding (no clear sources of bleeding identified after workup including capsule endoscopy), Hodgkin's lymphoma (status post radiation 1973), aortic stenosis (status post replacement with pediatric mechanical valve due to scarring from
radiation, on warfarin), mitral stenosis and regurgitation, pulmonary hypertension, HFpEF, breast cancer (2018, bilateral mastectomy, declined chemo and radiation, later treated with tamoxifen), CVA (right MCA stroke 2005, recurrent 07/15/2022 while
off warfarin with subtherapeutic INR), hypertension, and hypothyroidism
Past Surgical History: Reports Other
Additional Past Surgical History:
[facility] mechanical aortic valve replacement 2006, bilateral mastectomy 2017, splenectomy, thyroidectomy
Social History
Tobacco: Former Smoker
Alcohol: Occasional
Drug: None
Personal:
Living: With Family
Family History
Family History: Not pertinent
Allergies / Home Medications
Allergies reflects when Allergies were last updated in [facility].
Home Medications with original date entered in [facility]
Allergy/Medication List:
Allergies
Allergy/AdvReac Type Severity Reaction Status Date / Time
palbociclib (From [employer]) Allergy Tongue Verified 05/02/25 08:07
Swelling
Penicillins Allergy throat Verified 05/02/25 08:07
swelling-
tolertates
amoxicillin
tramadol Allergy throat Verified 05/02/25 08:07
swelling
Home Medications
levothyroxine 88 mcg tablet 88 mcg PO DAILY AT 0700 Thyroid 09/27/21
lisinopril 10 mg tablet 10 mg PO QPM Blood Pressure 10/28/23
warfarin 2.5 mg tablet 2.5 mg PO QPM Blood Clot Prevention/Tx 11/10/23
metoprolol succinate 50 mg tablet,extended release 24 hr 50 mg PO BID Blood Pressure 10/24/24
pantoprazole 40 mg tablet,delayed release (Protonix) 40 mg PO DAILY #30 tabs 04/30/25
celecoxib 100 mg capsule 100 mg PO BIDPRN PRN MILD PAIN 05/02/25
furosemide 20 mg tablet 20 mg PO SUTUTHSA 05/02/25
furosemide 40 mg tablet (Lasix) 40 mg PO MOWEFR 05/02/25
Review of Systems
-
Constitutional: Reports Fatigue
Abdomen/GI: Reports Black Stools
Physical Exam
Vital Signs
Vital Signs
Temp Pulse Resp BP Pulse Ox
97.5 F 74 16 131/45 100
05/02/25 08:02 05/02/25 11:37 05/02/25 11:37 05/02/25 11:37 05/02/25 08:41
Physical Exam
General: Appears Chronically Ill
Laboratory Results
-
05/02/25 10:29
Laboratory Results
PT 45.2 Sec (11.4-14.6) H 05/02/25 10:29
INR 4.93 D 05/02/25 10:29
APTT 43.0 Sec (23.4-35.0) H 05/02/25 10:29
Impression/Plan
-
General: No Apparent Distress, Comfortable and Conversant, cachectic
HEENT: NormoCephalic, Moist mucous membranes, Atraumatic
Respiratory: Clear and Non Labored Respirations
Cardiac: S1/S2 and Regular Rhythm; No Rub or Gallop
GI: Soft, Non Tender, Non Distended and Normal Bowel Sounds
Musculoskeletal: No Edema, bilateral mastectomy, decreased muscle bulk throughout
Skin: Warm and dry
: NO Church
Neuro: Awake, Alert, Nonfocal/grossly intact
Psych: Calm and Intact Judgment/Insight
Ms. Osborn is a 69-year-old female with a complicated medical history who presented with upper abdominal discomfort and black tarry stools. She was recently seen in the emergency room where she was discharged on Protonix for dyspepsia and
odynophagia, her INR at that time was 7. Her abdominal symptoms have since improved but she then developed black tarry stools and so returned for further evaluation and management. Her complicated medical history includes recurrent GI bleeding (no
clear sources of bleeding identified after workup including capsule endoscopy), Hodgkin's lymphoma (status post radiation 1973), aortic stenosis (status post replacement with pediatric mechanical valve due to scarring from radiation, on warfarin),
mitral stenosis and regurgitation, pulmonary hypertension, HFpEF, breast cancer (2018, bilateral mastectomy, declined chemo and radiation, later treated with tamoxifen), CVA (right MCA stroke 2005, recurrent 07/15/2022 while off warfarin with
subtherapeutic INR), hypertension, and hypothyroidism. She is experiencing generalized weakness and fatigue. She denies chest pain or shortness of breath. She follows closely with her bowling alley floors installer outpatient and requests cardiology involvement
while inpatient pending any potential procedures. She is tearful when discussing her many comorbidities. She has made clear that her wishes are DO NOT RESUSCITATE, she does not want CPR or intubation in emergency.
In the ED, she has remained normotensive, afebrile, and saturating properly on room air. Her labs are remarkable for a hemoglobin of 11.2 (down from 13.2 on 04/30/2025), INR of 4.9 (was 7.0 on 04/30/2025), sodium 128, potassium 6.2, creatinine 1.9
with a BUN of 80. CT of her abdomen pelvis with IV and oral contrast showed right pelvic sidewall lymphadenopathy concerning for malignant lymph nodes, patchy pulmonary opacities in the bilateral lung bases concerning for pneumonia or pulmonary
metastasis, small right pleural effusion. She was started on IV Protonix and admitted for further evaluation and management.
GI bleeding:
- Suspect esophagitis/gastritis considering dyspeptic symptoms and melena
- Mild anemia with hemoglobin 11.2 down from 13.2 on 04/30/2025
- Full liquid diet for now, IV Protonix
- GI following, no current plans for endoscopy, will reevaluate if still signs of bleeding with therapeutic INR
- H&H every 6 hours for now, holding warfarin for supratherapeutic INR
- Holding home celecoxib
History of mechanical aortic valve replacement:
- Currently holding warfarin due to supratherapeutic INR, restart as able to maintain an INR goal of 2.5-3.5
[place]:
- Creatinine of 1.9 on labs today, baseline appears to be around 1.2
- Will give IV fluid gently considering history of valvular disease and HFpEF
- Hold scheduled Lasix for now, holding home celecoxib
Hyperkalemia:
- Potassium 6.2, likely due to [place]
- Gentle IV fluids
- Repeat BMP this afternoon
- Monitor on telemetry
Hyponatremia:
- Moderate with serum sodium 128, no neurologic symptoms
- Suspect hypovolemic, possibly over diuresed
- Hold home Lasix, will give gentle IV fluids
Hypertension:
- Chronic, continue home lisinopril 10 mg daily
Hypothyroidism:
- Continue home levothyroxine 88 mcg daily
Chronic HFpEF:
- Currently compensated
- Holding scheduled Lasix due to [place]
- Continue home metoprolol succinate 50 mg p.o. twice daily
DVT prophylaxis: Currently holding warfarin due to supratherapeutic INR
CODE STATUS: DNR
Total time spent on today's encounter was 60 minutes
[2025-05-02 12:09] LABS: ALT (SGPT) 23 U/L (0-35); AST (SGOT) 37 U/L (14-36); Albumin 3.5 g/dl (3.5-5.0); Alkaline Phosphatase 108 U/L (38-126); Blood Urea Nitrogen 80 mg/dl (7-17); Calcium 8.6 mg/dl (8.4-10.2); Carbon Dioxide 20 mmol/L (22-30); Chloride 102 mmol/L (98-107); Estimated Creatinine Clearance 17 ml/min; Glucose 90 mg/dl (70-99); Potassium 6.2 mmol/L (3.5-5.1); Sodium 128 mmol/L (135-145); Total Protein 9.1 g/dl (6.3-8.2); eGFR 27.88
--- NOTE | 2025-05-02 12:58 | CM ---
CM reviewed chart and met with pt bedside in ED. Lives with her in 2 story home, 1 OC, first floor half BA, second floor BR/full BA. Independent in ADLs, personal care and ambulation at baseline. No DME.
Confirms prescription coverage. Hx [facility] an [facility], no hx SNF.
PCP: Melanie Haynes
Pharmacy: [facility]
Discharge plan: Anticipate home, watch for needs
--- NOTE | 2025-05-02 13:34 | EDRN ---
Patient taken to room 436-1 on monitor with Protonix drip infusing by water and fire technician.
[2025-05-02] MEDS: NSS 500 IV (14:05)
[2025-05-02 14:18] LABS: Hematocrit 32.7 % (37.0-47.0); Hemoglobin 11.0 g/dL (12.0-16.0)
--- NOTE | 2025-05-02 14:21 | PN.CDI ---
CDI
- -
CDI:
Physician Documentation Request
Admit Date: 05/02/25 12:36
Dear Doctor Franchesca Garay,
Patient admitted with GI bleed.
H&P, 'GI bleeding....holding warfarin for supratherapeutic INR.'
Please clarify the likely relationship between these conditions:
Yes, GI bleed is associated with/exacerbated by Warfarin.
No, GI bleed is not associated with/exacerbated by Warfarin but it is due to ___. (Please specify)
Other
Use of terms such as suspected, likely, concern for, or probable (associated with a specific diagnosis that is being evaluated, monitored, or treated as if it exists) are acceptable and can be coded in the inpatient setting, when documented at the
time of discharge.
Thank you,
Thuy FIORE,RN,CCDS
CDI Specialist
Available via [facility] text
Please use your independent medical judgment in providing your response.
--- NOTE | 2025-05-02 14:31 | PN.CDI ---
CDI
- -
CDI:
Physician Documentation Request
Admit Date: 05/02/25 12:36
Dear Doctor Franchesca Garay,
Patient admitted with GI bleed.
H&P, 'GI bleeding... Mild anemia with hemoglobin 11.2 down from 13.2 on 04/30/2025.'
05/02 Hgb 11.0
Based on the above, please provide in your note the most likely type of anemia you are evaluating, monitoring and/or treating?
Acute blood loss anemia from GI bleed
Other anemia (please specify)
Other
Use of terms such as suspected, likely, concern for, or probable (associated with a specific diagnosis that is being evaluated, monitored, or treated as if it exists) are acceptable and can be coded in the inpatient setting, when documented at the
time of discharge.
Thank you,
Thuy SCHREIBERN,RN,CCDS
CDI Specialist
Available via [place] text
Please use your independent medical judgment in providing your response.
[2025-05-02 14:58] LABS: Blood Urea Nitrogen 77 mg/dl (7-17); Calcium 8.4 mg/dl (8.4-10.2); Carbon Dioxide 21 mmol/L (22-30); Chloride 103 mmol/L (98-107); Estimated Creatinine Clearance 17 ml/min; Glucose 90 mg/dl (70-99); Potassium 5.6 mmol/L (3.5-5.1); Sodium 130 mmol/L (135-145); eGFR 29.75
[2025-05-02] MEDS: ZESTRIL 10 MG PO (17:25)
[2025-05-02 18:08] LABS: Hematocrit 23.0 % (37.0-47.0); Hemoglobin 7.7 g/dL (12.0-16.0)
[2025-05-02] MEDS: TOPROL XL 50 MG PO (20:44)
[2025-05-02 21:13] LABS: Hematocrit 27.6 % (37.0-47.0)
[2025-05-02] MEDS: ATIVAN 1 MG PO (21:31)
[2025-05-02 21:34] LABS: Hemoglobin 9.3 g/dL (12.0-16.0)
[2025-05-03 01:08] LABS: Hematocrit 27.1 % (37.0-47.0); Hemoglobin 9.2 g/dL (12.0-16.0)
[2025-05-03] MEDS: SYNTHROID 88 MCG PO (05:00)
[2025-05-03 06:00] VITALS: BMI 17.4
[2025-05-03 07:14] LABS: Hematocrit 26.5 % (37.0-47.0); Hemoglobin 8.8 g/dL (12.0-16.0)
[2025-05-03 07:17] VITALS: BP 100/43
[2025-05-03 07:45] LABS: Blood Urea Nitrogen 82 mg/dl (7-17); Calcium 8.1 mg/dl (8.4-10.2); Carbon Dioxide 19 mmol/L (22-30); Chloride 109 mmol/L (98-107); Estimated Creatinine Clearance 15 ml/min; Glucose 87 mg/dl (70-99); Potassium 5.6 mmol/L (3.5-5.1); Sodium 131 mmol/L (135-145); eGFR 26.22
[2025-05-03 07:54] LABS: INR 4.84; PT 44.6 Sec (11.4-14.6)
[2025-05-03] MEDS: TOPROL XL PO ×2 (08:25→20:08)
[2025-05-03] MEDS: TYLENOL 650 MG PO (09:11)
[2025-05-03] MEDS: NSS 500 IV (09:12)
--- NOTE | 2025-05-03 13:20 | W.PN.GI.CBS2 ---
Addendum entered and electronically signed by Ivan Wisdom MD 05/03/25 15:27:
I saw and examined the patient.
The SUBSTATION OPERATOR HELPER or PA's note was reviewed and I agree with the note.
Comment: Passed small bloody stool- quarter sized. Denies abd pain
REC:
hgb down to 7.7, but repeat was 9.3. Cont to treand- check f/u Hgb 6pm
Check repeat CBC and INR
If ongoing bleeding, drop in hgb, then proceed with EGD after INR decreased. Use heparin gtt bridge
If stabilizes, would try to avoid stopping anticoaguation given hx CVA off anticoagulation
Will follow. Keep NPO p MN in case EGD tomorrow
Original Note:
Today's Communication / Plan
-
Etiology of bleeding related to upper vs lower bleeding -- blood passed today more dark red in color but only quarter sized amount
hbg drop to 7.7 then 9.3 now 8.8 with no transfusion given
INR still 4.84 this am pt states goal 2.5--3.5
cont PPI
add iron studies as pt asking about iron infusion (last study iron 59, TIBC 255, % sat 23, ferritin 162 03/28)
cont diet
will review with Dr. Wisdom need to proceed with EGD or colon-- may be able to hold if no further bleeding
Assessment / Plan
-
Pt is a a 69yo with hx CVA, hodgkins lymphoma, breast CA, GERd, thyroidectomy, splenectomy, gastroparesis, CHF prior obscure GI bleed [facility] AVR on coumadin with onset of rectal bleeding and noted INR 7.09 on admission. She has a history of obscure
GI bleeding, in October 2023, her EGD and colonoscopy were essentially unremarkable. She had a repeat EGD with capsule placement in the small intestine in 2023 which by report was okay, and since then has had no significant bleeding
-rectal bleeding
-anemia with drop in hbg to 7.7 after admission -- acute on chronic follow with heme for iron infusions
-supratherapeutic INR
-elevated K on admission
-hx mech AVR
-hx obscure GI bleed
other med problems:
CVA, Hodgkins lymphoma, breast CA- b/l mastectomy, thryroidectomy, splenectomy, CKD, gastroparesis, CHF prior obscure GI bleed , GERD
PLAN:
Etiology of bleeding related to upper vs lower bleeding -- blood passed today more dark red in color but only quarter sized amount
hbg drop to 7.7 then 9.3 now 8.8 with no transfusion given
INR still 4.84 this am pt states goal 2.5--3.5
cont PPI
add iron studies as pt asking about iron infusion (last study iron 59, TIBC 255, % sat 23, ferritin 162 03/28)
cont diet
will review with Dr. Wisdom need to proceed with EGD or colon-- may be able to hold if no further bleeding
Subjective
Subjective
Date of Service: May 03, 2025
pt just passes very small amount of dark red blood on regular diet
Objective
Data Reviewed
Laboratory Data:
Laboratory Results
05/03/25 06:34
05/03/25 06:34
Laboratory Results
PT 44.6 Sec (11.4-14.6) H 05/03/25 06:34
INR 4.84 05/03/25 06:34
APTT 43.0 Sec (23.4-35.0) H 05/02/25 10:29
Total Bilirubin 0.5 mg/dl (0.2-1.3) 05/02/25 10:29
AST 37 U/L (14-36) H 05/02/25 10:29
ALT 23 U/L (0-35) 05/02/25 10:29
Alkaline Phosphatase 108 U/L (38-126) 05/02/25 10:29
Vital Signs and I&O:
Vital Signs
Temp Pulse Resp BP Pulse Ox
97.8 F 80 17 100/43 96
05/03/25 07:17 05/03/25 08:25 05/03/25 07:17 05/03/25 08:25 05/03/25 07:17
I&O
05/02/25 05/03/25 05/04/25
06:59 06:59 06:59
Intake Total 600 / 600
Output Total 100 / 100
Balance 500 / 500
Physical Exam
Physical Exam
HEENT: Anicteric and Moist mucous membranes
Cardiology: Normal Sinus Rhythm and Other (click with valve)
Pulmonary: Clear
GI: Soft, Non Distended and Non Tender
Extremities: No Edema
Neuro: Non Focal and Other (anxious )
[2025-05-03 14:24] LABS: Iron 65 ug/dl (37-170)
[2025-05-03 14:28] LABS: Total Iron Binding Capacity 242 ug/dl (265-497)
[2025-05-03 14:32] LABS: Hematocrit 24.6 % (37.0-47.0); Hemoglobin 8.3 g/dL (12.0-16.0); Mean Corp Hgb Conc. 33.7 g/dL (33.0-37.0); Mean Corpuscular Volume 82.3 fL (81.0-99.0); Platelet Count 222 10^3/uL (130-400); Red Cell Dist. Width 16.4 % (11.5-14.5)
--- NOTE | 2025-05-03 14:49 | CM ---
Plan is to home when stable, no needs.
Plan; Home no needs when stable.
--- NOTE | 2025-05-03 14:59 | W.PN.HOSP.TC ---
Today's Communication/Plan
-
Assessment / Plan
Assessment / Plan
General: No Apparent Distress, Comfortable and Conversant, cachectic
HEENT: NormoCephalic, Moist mucous membranes, Atraumatic
Respiratory: Clear and Non Labored Respirations
Cardiac: S1/S2 and Regular Rhythm; No Rub or Gallop
GI: Soft, Non Tender, Non Distended and Normal Bowel Sounds
Musculoskeletal: No Edema, bilateral mastectomy, decreased muscle bulk throughout
Skin: Warm and dry
: NO Church
Neuro: Awake, Alert, Nonfocal/grossly intact
Psych: Calm and Intact Judgment/Insight
Ms. Osborn is a 69-year-old female with a complicated medical history who presented with upper abdominal discomfort and black tarry stools. She was recently seen in the emergency room where she was discharged on Protonix for dyspepsia and
odynophagia, her INR at that time was 7. Her abdominal symptoms have since improved but she then developed black tarry stools and so returned for further evaluation and management. Her complicated medical history includes recurrent GI bleeding (no
clear sources of bleeding identified after workup including capsule endoscopy), Hodgkin's lymphoma (status post radiation 1973), aortic stenosis (status post replacement with pediatric mechanical valve due to scarring from radiation, on warfarin),
mitral stenosis and regurgitation, pulmonary hypertension, HFpEF, breast cancer (2018, bilateral mastectomy, declined chemo and radiation, later treated with tamoxifen), CVA (right MCA stroke 2005, recurrent 07/15/2022 while off warfarin with
subtherapeutic INR), hypertension, and hypothyroidism. She is experiencing generalized weakness and fatigue. She denies chest pain or shortness of breath. She follows closely with her lab technician outpatient and requests cardiology involvement
while inpatient pending any potential procedures. She is tearful when discussing her many comorbidities. She has made clear that her wishes are DO NOT RESUSCITATE, she does not want CPR or intubation in emergency.
In the ED, she has remained normotensive, afebrile, and saturating properly on room air. Her labs are remarkable for a hemoglobin of 11.2 (down from 13.2 on 04/30/2025), INR of 4.9 (was 7.0 on 04/30/2025), sodium 128, potassium 6.2, creatinine 1.9
with a BUN of 80. CT of her abdomen pelvis with IV and oral contrast showed right pelvic sidewall lymphadenopathy concerning for malignant lymph nodes, patchy pulmonary opacities in the bilateral lung bases concerning for pneumonia or pulmonary
metastasis, small right pleural effusion. She was started on IV Protonix and admitted for further evaluation and management.
GI bleeding:
- Suspect esophagitis/gastritis considering dyspeptic symptoms and melena, likely acquired von Willebrand syndrome in the setting of mechanical aortic valve
- Anemia with hemoglobin trending down to 8.8 today from 13.2 on 04/30/2025
- Very small amount of dark blood per rectum
- GI following, no current plans for endoscopy, will reevaluate if still signs of bleeding with therapeutic INR
- Continue IV Protonix
- Regular diet
- INR improved to 4.8 on labs morning, will restart warfarin tonight in order to avoid her being subtherapeutic
- Check H&H in the morning or sooner if active bleeding
- Holding home celecoxib
History of mechanical aortic valve replacement:
- INR trending down from 7.0-4.8 this morning, restarting home warfarin to maintain an INR goal of 2.5-3.5
[place]:
- Creatinine of 2.0 on labs today, baseline appears to be around 1.2
- Will give another 500 cc of normal saline gently considering history of valvular disease and HFpEF
- Hold scheduled Lasix for now, holding home celecoxib and lisinopril
Hyperkalemia:
- Potassium 6.2 at time of admission improved to 5.6 on labs this morning, likely due to [place]
- Gentle IV fluids
- Monitor on telemetry
Hyponatremia:
- Moderate with serum sodium 128, improved to 131 today, no neurologic symptoms
- Suspect hypovolemic, possibly over diuresed
- Hold home Lasix, will give gentle IV fluids
Hypertension:
- Chronic, currently well-controlled
- Holding home lisinopril due to [place]
Hypothyroidism:
- Continue home levothyroxine 88 mcg daily
Chronic HFpEF:
- Currently compensated
- Holding scheduled Lasix due to [place]
- Continue home metoprolol succinate 50 mg p.o. twice daily
DVT prophylaxis: Warfarin
CODE STATUS: DNR
Total time spent on today's encounter was 40 minutes
Anticipated Discharge: 24 - 48 hours
Subjective/Interval History
-
Date of Service: May 03, 2025
Patient was seen and examined at bedside this morning. Hemoglobin trended down to 8.8 on labs this morning. Still having blood mixed with stool. INR improving.
Objective Data
-
Labs:
Laboratory Results
05/03/25 05/03/25
06:34 14:13
WBC 6.7
Hgb 8.8 L 8.3 L
Hct 26.5 L 24.6 L
Plt Count 222
PT 44.6 H
INR 4.84
Sodium 131 L
Potassium 5.6 H
Chloride 109 H
Carbon Dioxide 19 L
BUN 82 H
Creatinine 2.0 H
Glucose 87
Calcium 8.1 L
Vital Signs:
Vital Signs
Temp Pulse Resp BP Pulse Ox
97.8 F 80 17 100/43 96
05/03/25 07:17 05/03/25 08:25 05/03/25 07:17 05/03/25 08:25 05/03/25 07:17
I&O
05/02/25 05/03/25 05/04/25
06:59 06:59 06:59
Intake Total 600 / 600
Output Total 100 / 100
Balance 500 / 500
Review of Systems
-
History Source: Patient
All other systems: Reviewed and negative
Physical Exam
-
General: No Apparent Distress and Appears Chronically Ill
[2025-05-03 15:22] VITALS: BP 111/43
[2025-05-03 15:55] LABS: Ferritin 174.0 ng/ml (11.1-264.0)
[2025-05-03 18:19] LABS: Hematocrit 24.9 % (37.0-47.0); Hemoglobin 8.3 g/dL (12.0-16.0)
[2025-05-03] MEDS: NSS (PRESERVATIVE FREE) 10 ML IV (20:08)
[2025-05-03] MEDS: PROTONIX IV 40 MG IV (20:08)
[2025-05-03] MEDS: ATIVAN 1 MG PO (21:37)
[2025-05-03 23:33] VITALS: BP 96/41
[2025-05-04] VITALS (8 sets, daily range): BP systolic 85–114; BP diastolic 38–49; PULSE 98–101; BMI 17.2
[2025-05-04] MEDS: SYNTHROID 88 MCG PO (06:23)
[2025-05-04 07:45] LABS: Hematocrit 23.5 % (37.0-47.0); Hemoglobin 7.5 g/dL (12.0-16.0); Mean Corp Hgb Conc. 31.9 g/dL (33.0-37.0); Mean Corpuscular Volume 84.8 fL (81.0-99.0); Platelet Count 259 10^3/uL (130-400); Red Cell Dist. Width 16.8 % (11.5-14.5)
[2025-05-04] MEDS: TOPROL XL PO ×2 (07:54→20:11)
[2025-05-04 08:23] LABS: INR 4.42; PT 42.2 Sec (11.4-14.6)
[2025-05-04 09:18] LABS: Carbon Dioxide 15 mmol/L (22-30)
[2025-05-04 09:32] LABS: Blood Urea Nitrogen 85 mg/dl (7-17); Calcium 8.2 mg/dl (8.4-10.2); Chloride 114 mmol/L (98-107); Estimated Creatinine Clearance 16 ml/min; Glucose 80 mg/dl (70-99); Potassium 5.4 mmol/L (3.5-5.1); Sodium 136 mmol/L (135-145); eGFR 27.88
[2025-05-04] MEDS: NSS (PRESERVATIVE FREE) 10 ML IV ×2 (09:32→20:10)
[2025-05-04] MEDS: PROTONIX IV 40 MG IV ×2 (09:32→20:10)
--- NOTE | 2025-05-04 09:52 | W.PN.GI.CBS2 ---
Addendum entered and electronically signed by Ivan Wisdom MD 05/04/25 11:14:
I saw and examined the patient.
The CONTACT CENTER SPECIALIST or PA's note was reviewed and I agree with the note.
Comment: No further bleeding. Pt very anxious about her INR and risk for stroke if it drops.
REC:
Hgb down to 7.5 today, but no further bleeding
At this point, she does NOT want EGD or colonoscopy to look for bleeding site and she is very concerned about the risk of INR dropping and CVA
Resume diet, Follow Hgb after PRBC this am.
Hold off on GI procedures
She is getting coumadin restarted.
If she has active bleeding, will rediscuss GI procedures with her
Original Note:
Today's Communication / Plan
-
Etiology of bleeding related to upper vs lower bleeding -- blood passed very small amount 05/03 darker red but no further overnight
recurrent drop in hbg to 7.5 today for transfusion but no signs of aggressive bleeding
INR still 4.42
with no signs of aggressive bleeding and INR 4.42 hold EGD -- if no signs of bleeding pt not sure if she would want to proceed if hbg remains stable post transfusion stable
discussed heparin gtt as needed per medical team
cont PPI
iron studies stable
resume regular diet - hx dysgeusia so limited diet - NPO in AM til labs and case reviewed in case EGD needed
Assessment / Plan
-
Pt is a a 69yo with hx CVA, hodgkins lymphoma, breast CA, GERd, thyroidectomy, splenectomy, gastroparesis, CHF prior obscure GI bleed mech AVR on coumadin with onset of rectal bleeding and noted INR 7.09 on admission. She has a history of obscure
GI bleeding, in October 2023, her EGD and colonoscopy were essentially unremarkable. She had a repeat EGD with capsule placement in the small intestine in 2023 which by report was okay, and since then has had no significant bleeding
-rectal bleeding
-anemia with drop in hbg to 7.5 after admission -- acute on chronic follow with heme for iron infusions
-supratherapeutic INR on admission
-elevated K on admission
-hx mech AVR
-hx obscure GI bleed
-dysgeusia
other med problems:
CVA, Hodgkins lymphoma, breast CA- b/l mastectomy, thryroidectomy, splenectomy, CKD, gastroparesis, CHF prior obscure GI bleed , GERD
PLAN:
Etiology of bleeding related to upper vs lower bleeding -- blood passed very small amount 05/03 darker red but no further overnight
recurrent drop in hbg to 7.5 today for transfusion but no signs of aggressive bleeding
INR still 4.42
with no signs of aggressive bleeding and INR 4.42 hold EGD -- if no signs of bleeding pt not sure if she would want to proceed if hbg remains stable post transfusion stable
discussed heparin gtt as needed per medical team
cont PPI
iron studies stable
resume regular diet - hx dysgeusia so limited diet - NPO in AM til labs and case reviewed in case EGD needed
Subjective
Subjective
Date of Service: May 04, 2025
only small stool yesterday with dark red blood, NPO
Objective
Data Reviewed
Laboratory Data:
Laboratory Results
05/04/25 07:21
05/04/25 07:21
Laboratory Results
PT 42.2 Sec (11.4-14.6) H 05/04/25 07:21
INR 4.42 05/04/25 07:21
APTT 43.0 Sec (23.4-35.0) H 05/02/25 10:29
Total Bilirubin 0.5 mg/dl (0.2-1.3) 05/02/25 10:29
AST 37 U/L (14-36) H 05/02/25 10:29
ALT 23 U/L (0-35) 05/02/25 10:29
Alkaline Phosphatase 108 U/L (38-126) 05/02/25 10:29
Vital Signs and I&O:
Vital Signs
Temp Pulse Resp BP Pulse Ox
98.1 F 92 18 99/46 99
05/04/25 07:39 05/04/25 07:54 05/04/25 07:39 05/04/25 07:54 05/04/25 07:39
I&O
05/03/25 05/04/25 05/05/25
06:59 06:59 06:59
Intake Total 600 / 600 240 / 240
Output Total 100 / 100
Balance 500 / 500 240 / 240
Physical Exam
Physical Exam
HEENT: Anicteric and Moist mucous membranes
Cardiology: Normal Sinus Rhythm and Other (click with valve)
Pulmonary: Clear
GI: Soft, Non Distended and Non Tender
Extremities: No Edema
Neuro: Non Focal
[2025-05-04] MEDS: COUMADIN 2 MG PO (12:26)
--- NOTE | 2025-05-04 14:27 | W.PN.HOSP.TC ---
Addendum entered and electronically signed by Darvin Menjivar DO 05/05/25 11:54:
Additional diagnosis: Moderate protein calorie malnutrition
Original Note:
Today's Communication/Plan
-
Assessment / Plan
Assessment / Plan
General: No Apparent Distress, Comfortable and Conversant, cachectic
HEENT: NormoCephalic, Moist mucous membranes, Atraumatic
Respiratory: Clear and Non Labored Respirations
Cardiac: S1/S2 and Regular Rhythm; No Rub or Gallop
GI: Soft, Non Tender, Non Distended and Normal Bowel Sounds
Musculoskeletal: No Edema, bilateral mastectomy, decreased muscle bulk throughout
Skin: Warm and dry
: NO Church
Neuro: Awake, Alert, Nonfocal/grossly intact
Psych: Calm and Intact Judgment/Insight
Ms. Osborn is a 69-year-old female with a complicated medical history who presented with upper abdominal discomfort and black tarry stools. She was recently seen in the emergency room where she was discharged on Protonix for dyspepsia and
odynophagia, her INR at that time was 7. Her abdominal symptoms have since improved but she then developed black tarry stools and so returned for further evaluation and management. Her complicated medical history includes recurrent GI bleeding (no
clear sources of bleeding identified after workup including capsule endoscopy), Hodgkin's lymphoma (status post radiation 1973), aortic stenosis (status post replacement with pediatric mechanical valve due to scarring from radiation, on warfarin),
mitral stenosis and regurgitation, pulmonary hypertension, HFpEF, breast cancer (2018, bilateral mastectomy, declined chemo and radiation, later treated with tamoxifen), CVA (right MCA stroke 2005, recurrent 07/15/2022 while off warfarin with
subtherapeutic INR), hypertension, and hypothyroidism. She is experiencing generalized weakness and fatigue. She denies chest pain or shortness of breath. She follows closely with her wire spinner outpatient and requests cardiology involvement
while inpatient pending any potential procedures. She is tearful when discussing her many comorbidities. She has made clear that her wishes are DO NOT RESUSCITATE, she does not want CPR or intubation in emergency.
In the ED, she has remained normotensive, afebrile, and saturating properly on room air. Her labs are remarkable for a hemoglobin of 11.2 (down from 13.2 on 04/30/2025), INR of 4.9 (was 7.0 on 04/30/2025), sodium 128, potassium 6.2, creatinine 1.9
with a BUN of 80. CT of her abdomen pelvis with IV and oral contrast showed right pelvic sidewall lymphadenopathy concerning for malignant lymph nodes, patchy pulmonary opacities in the bilateral lung bases concerning for pneumonia or pulmonary
metastasis, small right pleural effusion. She was started on IV Protonix and admitted for further evaluation and management.
GI bleeding:
- Suspect esophagitis/gastritis considering dyspeptic symptoms and melena, likely acquired von Willebrand syndrome in the setting of mechanical aortic valve
- Anemia with hemoglobin trended down to 7.5 today from 13.2 on 04/30/2025
- Very small amount of dark blood per rectum yesterday
- Will transfuse 1 unit PRBCs
- GI following, no current plans for endoscopy, will reevaluate if still signs of ongoing bleeding, however patient does not want to pursue endoscopy at this point
- INR improved to 4.4, will cautiously restart home warfarin, patient is very anxious to avoid a subtherapeutic INR as she has had a stroke previously under the circumstances
- Continue IV Protonix
- Regular diet
- Check H&H in the morning or sooner if active bleeding
- Holding home celecoxib
History of mechanical aortic valve replacement:
- INR trending down from 7.0 at time of admission to 4.4 this morning, restarting home warfarin to maintain an INR goal of 2.5-3.5
[place]:
- Creatinine of 1.9 on labs today, baseline appears to be around 1.2
- Has received 500 cc of normal saline x 2 gently considering history of valvular disease and HFpEF
- Continue to hold scheduled Lasix for now, holding home celecoxib and lisinopril
Hyperkalemia:
- Potassium 6.2 at time of admission improved to 5.4 on labs this morning, likely due to [place]
- Monitor on telemetry
Hyponatremia:
- Moderate with serum sodium 128, improved to 136 today, no neurologic symptoms
- Suspect hypovolemic, possibly over diuresed
- Hold home Lasix, no further IV fluids for now
Hypertension:
- Chronic, currently well-controlled
- Holding home lisinopril due to [place]
Hypothyroidism:
- Continue home levothyroxine 88 mcg daily
Chronic HFpEF:
- Currently compensated
- Holding scheduled Lasix due to [place]
- Continue home metoprolol succinate 50 mg p.o. twice daily
DVT prophylaxis: Warfarin
CODE STATUS: DNR
Total time spent on today's encounter was 40 minutes
Anticipated Discharge: 24 - 48 hours
Subjective/Interval History
-
Date of Service: May 04, 2025
Patient was seen and examined at bedside this morning. Hemoglobin dropped to 7.5 on labs this morning and so will be transfused a unit PRBCs.
Objective Data
-
Labs:
Laboratory Results
05/04/25
07:21
WBC 5.7
Hgb 7.5 L
Hct 23.5 L
Plt Count 259
PT 42.2 H
INR 4.42
Sodium 136
Potassium 5.4 H
Chloride 114 H
Carbon Dioxide 15 L
BUN 85 H
Creatinine 1.9 H
Glucose 80
Calcium 8.2 L
Vital Signs:
Vital Signs
Temp Pulse Resp BP Pulse Ox
98.5 F 98 16 110/43 99
05/04/25 11:05 05/04/25 11:05 05/04/25 11:05 05/04/25 11:05 05/04/25 10:46
I&O
05/03/25 05/04/25 05/05/25
06:59 06:59 06:59
Intake Total 600 / 600 240 / 240 0 / 0
Output Total 100 / 100
Balance 500 / 500 240 / 240 0 / 0
Review of Systems
-
History Source: Patient
All other systems: Reviewed and negative
Physical Exam
-
General: No Apparent Distress and Appears Chronically Ill
--- NOTE | 2025-05-04 16:32 | CM ---
Home when stable, no needs.
Plan; Home no needs
[2025-05-04] MEDS: ATIVAN 1 MG PO (20:11)
[2025-05-05] MEDS: SYNTHROID 88 MCG PO (04:59)
[2025-05-05 06:00] VITALS: BMI 17.0
[2025-05-05 07:00] VITALS: BP 97/45
[2025-05-05 07:24] LABS: INR 3.68; PT 36.7 Sec (11.4-14.6)
[2025-05-05 07:41] LABS: Blood Urea Nitrogen 85 mg/dl (7-17); Calcium 8.6 mg/dl (8.4-10.2); Carbon Dioxide 16 mmol/L (22-30); Chloride 115 mmol/L (98-107); Estimated Creatinine Clearance 19 ml/min; Glucose 133 mg/dl (70-99); Potassium 4.9 mmol/L (3.5-5.1); Sodium 139 mmol/L (135-145); eGFR 34.27
[2025-05-05 07:52] LABS: Hematocrit 30.2 % (37.0-47.0); Hemoglobin 9.9 g/dL (12.0-16.0); Mean Corp Hgb Conc. 32.8 g/dL (33.0-37.0); Mean Corpuscular Volume 84.6 fL (81.0-99.0); Platelet Count 256 10^3/uL (130-400); Red Cell Dist. Width 16.2 % (11.5-14.5)
[2025-05-05] MEDS: TOPROL XL PO (08:43)
[2025-05-05] MEDS: NSS (PRESERVATIVE FREE) 10 ML IV (08:43)
[2025-05-05] MEDS: PROTONIX IV 40 MG IV (08:43)
--- NOTE | 2025-05-05 09:19 | PN.CDI ---
CDI
- -
CDI:
Physician Documentation Request
Admit Date: 05/02/25 12:36
Dear Doctor Franchesca Garay,
Patient admitted with GI bleed.
05/04 Nutrition note 'During visit today RD able to observe appearance of moderate depression at temples, orbital, buccal (pt had meal tray over bed and was covered with blankets over legs-pt comfortable and further exam not done today). Intakes
prior to admission estimated to be <75% estimated energy needs for greater than or equal to 1 month. Pt meeting criteria for moderate protein/calorie malnutrition (ASPEN/AND guidelines, chronic illness).
Please provide in your note the diagnosis associated with the above nutritional findings and your assessment:
Moderate protein calorie malnutrition
Other (please specify)
Buchanan Criteria ([employer] Hospitalist 2017)
2 or more criteria must be present for either
non severe or severe malnutrition
Note that the criteria differs related to the
presence of an acute or chronic illness
Chronic Illness
Energy Intake Non Severe: <75% for >1 month
Severe: <75% for >1 month
Weight Loss Non Severe: 5% over 1 month
7.5% over 3 months
10% over 6 months
20% over 1 year
Severe: >5% over 1 month
>7.5% over 3 months
>10% over 6 months
>20% over 1 year
Body Fat Non Severe: Mild Loss
Severe: Severe Loss
Muscle Mass Non Severe: Mild Loss
Severe: Severe Loss
Fluid Accumulation Non Severe: Mild Accumulation
Severe: Moderate to severe
accumulation
Reduced Watch Repairer Strength Non Severe: N/A
Severe: Measurably reduced
Use of terms such as suspected, likely, concern for, or probable (associated with a specific diagnosis that is being evaluated, monitored, or treated as if it exists) are acceptable and can be coded in the inpatient setting, when documented at the
time of discharge.
Thank you,
Thuy FIORE,RN,CCDS
CDI Specialist
Available via [employer] text
Please use your independent medical judgment in providing your response.
[2025-05-05] MEDS: NSS 500 IV (10:25)
[2025-05-05] MEDS: TOPROL XL 50 MG PO (13:25)
--- NOTE | 2025-05-05 14:39 | W.DCSUMMARY ---
Discharge Summary
Discharge Data
Date of Admission: 05/02/25
Date of Discharge: 05/05/25
Total time spent discharging patient (in min): 50
-
Pending Results: No
Hospital Course
Ms. Osborn is a 69-year-old female with a complicated medical history who presented with upper abdominal discomfort and black tarry stools. She was recently seen in the emergency room where she was discharged on Protonix for dyspepsia and
odynophagia, her INR at that time was 7. Her abdominal symptoms improved but she then developed black tarry stools and so returned for further evaluation and management. Her complicated medical history includes recurrent GI bleeding (no clear
sources of bleeding identified after workup including capsule endoscopy), Hodgkin's lymphoma (status post radiation 1973), aortic stenosis (status post replacement with pediatric mechanical valve due to scarring from radiation, on warfarin), mitral
stenosis and regurgitation, pulmonary hypertension, HFpEF, breast cancer (2018, bilateral mastectomy, declined chemo and radiation, later treated with tamoxifen), CVA (right MCA stroke 2005, recurrent 07/15/2022 while off warfarin with subtherapeutic
INR), hypertension, and hypothyroidism.
In the ED, she was normotensive, afebrile, and saturating properly on room air. Her labs were remarkable for an initial hemoglobin of 11.2 (down from 13.2 on 04/30/2025), INR of 4.9 (was 7.0 on 04/30/2025), sodium 128, potassium 6.2, creatinine 1.9
with a BUN of 80. CT of her abdomen pelvis with IV and oral contrast showed right pelvic sidewall lymphadenopathy concerning for malignant lymph nodes, patchy pulmonary opacities in the bilateral lung bases concerning for pneumonia or pulmonary
metastasis, small right pleural effusion. She was started on IV Protonix and admitted for further evaluation and management.
Her hemoglobin trended down to 7.5 at which point she was transfused 1 unit PRBCs with improvement in her hemoglobin to 9.9. Her melena mostly resolved, although she did have some small amount of residual dark blood per rectum. Her home warfarin
was held initially but restarted on 05/04. Her INR returned to close to goal range at 3.6 on the morning of 05/05. She should continue taking her home dose of warfarin 2.5 mg daily with frequent lab work for INR checks over the next 2 weeks. She
did become mildly hypotensive during her hospitalization which resolved with gentle IV fluids. She received a total of 1.5 L normal saline. She was evaluated by gastroenterology during this hospitalization and with shared decision making it was
decided to proceed with conservative management rather than endoscopy. Her creatinine peaked at 2.0 after which it trended down to 1.6. Her home Lasix and lisinopril were held and will continue to be held at discharge. She will need repeat labs
in the outpatient setting to monitor her hemoglobin levels and renal function. She should discuss her lab results with her primary oyster unloader in order to determine when to restart her Lasix and lisinopril. She will be continued on Protonix. At
the time of hospital discharge she was medically stable. She has been given prescriptions for repeat lab work to monitor her renal function and hemoglobin over the next 2 weeks. She will need close follow-up with her oyster unloader and cardiac tech,
both of whom were notified about her current hospitalization. If she would like to pursue further GI workup she can also follow-up with gastroenterology.
General: No Apparent Distress, Comfortable and Conversant, cachectic
HEENT: NormoCephalic, Moist mucous membranes, Atraumatic
Respiratory: Clear and Non Labored Respirations
Cardiac: S1/S2 and Regular Rhythm; No Rub or Gallop
GI: Soft, Non Tender, Non Distended and Normal Bowel Sounds
Musculoskeletal: No Edema, bilateral mastectomy, decreased muscle bulk throughout
Skin: Warm and dry
: NO Church
Neuro: Awake, Alert, Nonfocal/grossly intact
Psych: Calm and Intact Judgment/Insight
Discharge Plan
-
Patient Disposition: Home (Routine Discharge)
Discharge Diagnosis/Procedures: GI bleeding, anemia requiring transfusion
Activity Restrictions/Additional Instructions:
Ms. Osborn is a 69-year-old female with a complicated medical history who presented with upper abdominal discomfort and black tarry stools. She was recently seen in the emergency room where she was discharged on Protonix for dyspepsia and
odynophagia, her INR at that time was 7. Her abdominal symptoms improved but she then developed black tarry stools and so returned for further evaluation and management. Her complicated medical history includes recurrent GI bleeding (no clear
sources of bleeding identified after workup including capsule endoscopy), Hodgkin's lymphoma (status post radiation 1973), aortic stenosis (status post replacement with pediatric mechanical valve due to scarring from radiation, on warfarin), mitral
stenosis and regurgitation, pulmonary hypertension, HFpEF, breast cancer (2018, bilateral mastectomy, declined chemo and radiation, later treated with tamoxifen), CVA (right MCA stroke 2005, recurrent 07/15/2022 while off warfarin with subtherapeutic
INR), hypertension, and hypothyroidism.
In the ED, she was normotensive, afebrile, and saturating properly on room air. Her labs were remarkable for an initial hemoglobin of 11.2 (down from 13.2 on 04/30/2025), INR of 4.9 (was 7.0 on 04/30/2025), sodium 128, potassium 6.2, creatinine 1.9
with a BUN of 80. CT of her abdomen pelvis with IV and oral contrast showed right pelvic sidewall lymphadenopathy concerning for malignant lymph nodes, patchy pulmonary opacities in the bilateral lung bases concerning for pneumonia or pulmonary
metastasis, small right pleural effusion. She was started on IV Protonix and admitted for further evaluation and management.
Her hemoglobin trended down to 7.5 at which point she was transfused 1 unit PRBCs with improvement in her hemoglobin to 9.9. Her melena mostly resolved, although she did have some small amount of residual dark blood per rectum. Her home warfarin
was held initially but restarted on 05/04. Her INR returned to close to goal range at 3.6 on the morning of 05/05. She should continue taking her home dose of warfarin 2.5 mg daily with frequent lab work for INR checks over the next 2 weeks. She
did become mildly hypotensive during her hospitalization which resolved with gentle IV fluids. She received a total of 1.5 L normal saline. She was evaluated by gastroenterology during this hospitalization and with shared decision making it was
decided to proceed with conservative management rather than endoscopy. Her creatinine peaked at 2.0 after which it trended down to 1.6. Her home Lasix and lisinopril were held and will continue to be held at discharge. She will need repeat labs
in the outpatient setting to monitor her hemoglobin levels and renal function. She should discuss her lab results with her primary oyster unloader in order to determine when to restart her Lasix and lisinopril. She will be continued on Protonix. At
the time of hospital discharge she was medically stable. She has been given prescriptions for repeat lab work to monitor her renal function and hemoglobin over the next 2 weeks. She will need close follow-up with her oyster unloader and cardiac tech,
both of whom were notified about her current hospitalization. If she would like to pursue further GI workup she can also follow-up with gastroenterology.
Referrals:
Leoncio Amaral DO [Active, Hematology / Oncology]
Melanie Haynes MD [Family Provider, Internal Medicine]
Donnell Locke MD [Active, Gastroenterology]
Mikey Resendez MD [Active, Cardiology]
Prescriptions:
Continued
levothyroxine 88 MCG tablet
88 mcg PO DAILY AT 0700
Patient Comments:
10/24/24--MUST BE BRAND NAME SYNTHROID Pt advised to have family/spouse bring in her Synthroid from home.
warfarin 2.5 mg Tablet
2.5 mg PO QPM
metoprolol succinate 50 mg tablet extended release 24 hr
50 mg PO BID
pantoprazole [Protonix] 40 mg tablet,delayed release (DR/EC)
40 mg PO DAILY Qty: 30 0RF
Held
lisinopril 10 mg tablet
10 mg PO QPM
Hold Instructions: Hold until follow-up with oyster unloader and review of kidney function and blood pressure
furosemide [Lasix] 40 mg Tablet
40 mg PO MOWEFR
Hold Instructions: Hold until follow-up with oyster unloader and review of kidney function
celecoxib 100 mg Capsule
100 mg PO BIDPRN PRN (Reason: MILD PAIN)
Hold Instructions: Holding due to GI bleeding
furosemide 20 mg tablet
20 mg PO SUTUTHSA
Hold Instructions: Hold until follow-up with oyster unloader and review of kidney function
Discharge Orders:
Discharge Patient (As Directed); Ordered 05/05/25
Ordered By: Darvin Menjivar
Discharge Date and Time
Print Language: TONGAN
[2025-05-05 15:00] VITALS: BP 121/54
--- NOTE | 2025-05-05 15:07 | CM ---
Home today with spouse, no needs
Plan; Home no needs.
== END 2025-05-05 15:51 | disposition home or self-care (01) | DRG 369 ==
LOC: 4 WEST ACU 12:36
PROVIDERS: Nurse Practitioner Adult Health; Nurse Practitioner Family; Specialist; ADMITTING PHYSICIAN Internal Medicine; CONSULT PHYSICIAN Internal Medicine Gastroenterology; EMERGENCY PHYSICIAN Emergency Medicine; FAMILY PHYSICIAN Emergency Medicine
PROC: 30233N1 Transfusion of Nonautologous Red Blood Cells into Peripheral Vein, Percutaneous Approach (ICD-10-PCS; 2025-05-04)
DX: K21.01 Gastro-esophageal reflux disease with esophagitis, with bleeding (principal); D62 Acute posthemorrhagic anemia; D68.04 Acquired von Willebrand disease; I50.32 Chronic diastolic (congestive) heart failure; N17.9 Acute kidney failure, unspecified; E87.1 Hypo-osmolality and hyponatremia; E44.0 Moderate protein-calorie malnutrition; Z68.1 Body mass index [BMI] 19.9 or less, adult; D68.32 Hemorrhagic disorder due to extrinsic circulating anticoagulants; E87.5 Hyperkalemia; T45.515A Adverse effect of anticoagulants, initial encounter; I05.2 Rheumatic mitral stenosis with insufficiency; I11.0 Hypertensive heart disease with heart failure; I27.20 Pulmonary hypertension, unspecified; E89.0 Postprocedural hypothyroidism; R13.10 Dysphagia, unspecified; Z66 Do not resuscitate; Z95.2 Presence of prosthetic heart valve; Z90.81 Acquired absence of spleen; Z86.73 Personal history of transient ischemic attack (TIA), and cerebral infarction without residual deficits; Z85.3 Personal history of malignant neoplasm of breast; Z87.891 Personal history of nicotine dependence; I25.2 Old myocardial infarction; Z90.13 Acquired absence of bilateral breasts and nipples; Z88.0 Allergy status to penicillin; Z88.5 Allergy status to narcotic agent; Z79.890 Hormone replacement therapy; Z79.01 Long term (current) use of anticoagulants; Z85.71 Personal history of Hodgkin lymphoma; Z92.3 Personal history of irradiation
CPT/HCPCS: 80048; 80053; 82728; 83540; 83550; 85014; 85018; 85027; 85610; 85730; 86850; 86900; 86901; 86920; 93005; 96374; 96376; 99285; P9016

== ENCOUNTER 2025-05-06 09:37 | Inpatient (IN) | payer OTHER, MEDICARE, SELFPAY ==
[2025-05-06] VITALS (24 sets, daily range): BP systolic 87–143; BP diastolic 38–60; BMI 17.8; BMI 17.2
--- NOTE | 2025-05-06 07:23 | ED.GENMED ---
History of Present Illness
General
Chief Complaint: Fainting/Passed Out
Source: patient, records and ambulance crew
Exam Limitations: none
Time Seen by Provider: 05/06/25 07:11
History of Present Illness
History of Present Illness:
69yoF with a history of mechanical valve on Coumadin, prior CVA, coronary artery disease, pulmonary hypertension, CHF, hypertension, and hypothyroidism presenting via EMS for evaluation of near syncope. Discharged yesterday after a 3-day
hospitalization for a GI bleed. She was evaluated by gastroenterology during her hospitalization and conservative management was pursued. Her hemoglobin was 7.5 at the lowest and she received 1 unit PRBC. Hemoglobin was 9.9 and she was
discharged. Patient was feeling 'okay' at time of discharge. She reports experiencing lightheadedness and shortness of breath since last night. Symptoms occur when she is walking up the steps. She has had several near syncopal episodes but has
not lost consciousness. Patient was on the toilet this morning around 6am when she passed a large amount of black tarry stool. She stood up and became lightheaded. She also developed chest pain and EMS was activated. She denies any chest pain
currently. She is currently in cardiac rehab. She had a cardiac catheterization in October 2024 which showed a 60-70% ostial to L proximal main stenosis as well as 100% chronic total occlusion of the proximal RCA. Due to her comorbidities,
medical management was pursed.
Past History
Past History
ED Past Medical History: Cancer (Hodgkin's lymphoma, breast), CVA, GERD, HTN, Valvular disease and Hypothyroidism
ED Past Surgical History: Cardiac (Mechanical aortic valve replacement), , Orthopedic and Other (Thyroidectomy, splenectomy, mastectomy)
Patient has exhibited threatening behavior?: No
PSI?: No
Social History
Tobacco: Non-smoker
Alcohol: None
Drug: None
Personal:
Living: with family
Employment: Employed
Family History
Family History: Other (Noncontributory)
Phy Exam
General Physical Exam
General Presentation: no apparent distress
General Skin: warm, dry and pale
General Habitus: frail
ENT Exam
ENT Exam: normocephalic
Cardiovascular Exam
Cardiovascular Exam: other (mechanical click)
Pulmonary Exam
Pulmonary Exam: lungs clear, no respiratory distress, no rales, no crackles, no rhonchi, no wheezing and other (Oxygen saturation 100% on room air)
Gastrointestinal Exam
Stool: black and other (Melena noted on rectal exam. Hemoccult positive.)
Neurological Exam
Neurological Exam: alert
[place] Coma Scale
Eye Opening: Spontaneous
Verbal Response: Oriented
Motor Response: Obeys Commands
GCS Total Score: 15
Skin Exam
Skin Exam: normal color and warm/dry
Psychiatric Exam
Psychiatric Exam: normal mood/affect
Course
Orders/Labs/Results
Orders:
Orders
05/06/25 07:10
Electrocardiogram (*1) Urgent
Reason for Study: Chest Pain
CR Chest - 2 Views Urgent
Comment:
Reason For Exam: shortness of breath
05/06/25 07:11
EKG- Treatment ONCE
05/06/25 07:14
Complete Blood Count/With Diff Urgent
Comprehensive Metabolic Panel Urgent
Magnesium Urgent
NT-proBNP Urgent
Troponin I Urgent
05/06/25 07:26
Pantoprazole [Protonix IV] 80 mg IV NOW STA
05/06/25 07:35
Prothrombin Time Urgent
05/06/25 09:03
Blood Bank Products [* Blood Bank Products] Urgent
Blood Bank Products: *Packed RBC Leuko(PRBC's)
Quantity: 1
Transfuse Today: Yes
Reason: Bleeding
05/06/25 09:22
Code Status As Directed
Resuscitation Status: Do not resuscitate
Reached after discussion with pt or family/Healthcare POA: Yes
VTE Contraindication Routine
VTE Mechanical Device Contraindication: Treatment not tolerated
Pharmocologic Contraindication: Bleeding
Docusate W/Senna [Senokot-S] 1 tablet PO BIDPRN PRN
Polyethylene Glycol Powder [Miralax] 17 grams PO DAILYPRN PRN
Activity As Directed
Activity Level: As Tolerated
Vital Signs As Directed
Frequency: Per unit guidelines
05/06/25 09:23
DNR Bracelet Application ONCE
05/06/25 09:26
Admit/Transfer Patient As Directed
Co-Sign Provider:
Level of Care: Inpatient admission
Assign to:: Telemetry
Physician / Group: Hospitalist: Otto
Diagnosis: GIB
Reason for Telemetry: Syncope
Date to Stop Telemetry: 05/08/25
Time to Stop Telemetry: 11:00
Reason for Hospitalization: GIB
Expected length of stay greater than two midnights?: Yes
ELOS- Estimated Length of Stay in days: 3
I certify the patient meets the requirements for IP care: Yes
PRN Pain Medication Management As Directed
May give lesser potent ordered pain med per pt: Yes
preference::
Protocol:: Medication orders for pain may be administered in a
manner that supports deferring to patient preference
when the pt is:
- Requesting an ordered lesser potent pain medication.
Least to most potent pain medications are defined
as: acetaminophen < NSAID < tramadol < opioids
(morphine, oxycodone, hydromorphone).
- Requesting a lesser dose of the same medication IF
ORDERED.
- Requesting a less intrusive route of administration
if both routes are prescribed by the provider (PO <
IV).
05/06/25 09:30
0.9% Sodium Chloride 1000 ml [Nss] 1,000 ml IV 80 mls/hr
05/06/25 Lunch
NPO
Allow oral meds: Yes
Allow clear liquids: No
NPO with Ice Chips: Yes
05/08/25 11:00
DC Protocol for Telemetry ONCE
Abnormal Lab Results
05/06/25 05/06/25
07:14 07:35
RBC 2.77 L 10^6/uL
(4.20-5.40)
Hgb 7.8 L D g/dL
(12.0-16.0)
Hct 23.6 L %
(37.0-47.0)
RDW 16.7 H %
(11.5-14.5)
MPV 10.6 H fL
(7.4-10.4)
Abs Immat Gran (auto) 0.1 H 10^3/uL
(0-0.05)
Absolute Lymphs (auto) 0.6 L 10^3/uL
(1.2-3.4)
Absolute Monos (auto) 0.9 H 10^3/uL
(0.1-0.6)
Immature Gran % 0.9 H %
(0-0.5)
Lymphocytes % 10.3 L %
(20.5-51.1)
Monocytes % 15.8 H %
(1.7-9.3)
Eosinophils % 7.7 H %
(0-6)
PT 45.1 H Sec
(11.4-14.6)
Chloride 116 H mmol/L
(98-107)
Carbon Dioxide 18 L mmol/L
(22-30)
BUN 81 H mg/dl
(7-17)
Creatinine 1.3 H mg/dL
(0.6-1.0)
Glucose 109 H mg/dl
(70-99)
Troponin I 0.036 H* ng/ml
Albumin 2.9 L g/dl
(3.5-5.0)
05/06/25 07:14
05/06/25 07:14
Vital Signs
Initial and Last Documented VS:
Initial Vital Signs
Pulse
83
05/06/25 07:13
Last Documented Vital Signs
Temp Pulse Resp BP Pulse Ox
98.5 F 86 14 118/45 100
05/06/25 07:17 05/06/25 07:17 05/06/25 07:17 05/06/25 07:17 05/06/25 07:26
MDM/Problems Addressed
Differential Diagnosis Includes:
69yoF here for near syncope and shortness of breath. Also had an episode of chest pain this morning. Just discharged yesterday after an admission for a GI bleed. Had an episode of black tarry stool this morning. VSS. She appears pale but is
non-toxic. Melena obtained on rectal exam. Differential diagnosis includes but is not limited to: symptomatic anemia, GI bleed, dehydration, ACS
Initial ED plan: Check cardiac labs, INR, type and screen, EKG, and CXR. IV Protonix ordered.
*Pulse Oximetry
SaO2: 100
Oxygen Mode of Delivery: Room air
Patient hypoxic: no (100%)
*EKG
Interpreted by ED Provider?: Yes
EKG Intrepretation Date: 05/06/25
Heart Rate: 83
Rate: normal
Rhythm: sinus
[place]: normal axis
Interval: normal interval
QRS Pattern: left vent hypertrophy
Ischemia: ST depression (ST/T wave changes noted in leads I, II, III, aVF, V3-V6.)
*Critical Care Note
Total Time (30-74mins, 75-104mins- exclusive of procedures): Not Applicable
Update Note
Update Note:
Hemoglobin is 7.8 today, down from 9.9 24 hours ago. BUN elevated at 81 suggesting upper GI bleed. Troponin elevated at 0.036 which may be related to demand ischemia from her anemia/GI bleed. She has no active chest pain. Consent obtained and 1
unit PRBCs ordered for transfusion. Patient admitted for further management.
ED Attending Note
-
Portions of this chart may have been created with voice recognition software.� Occasional wrong word or��sound alike� substitutions may have occurred due to the inherent limitations of voice recognition software.
Discharge Plan
Departure
Patient Disposition: Admit
Date of Disposition: 05/06/25
Time of Disposition: 09:06
Presentation/result/management discussed w/ accepting MD/DO: Hospitalist
Discharge Problem:
GI bleed, Acute blood loss anemia, Supratherapeutic INR, Elevated troponin
Interventions
Interventions:
*Risk Screen - Suicide Last Done: 05/06/25 07:17
*General Assessment Last Done: 05/06/25 07:17
*Neglect/Abuse Screening Last Done: 05/06/25 07:17
*ED- Fall Risk Assessment Last Done: 05/06/25 07:17
*ED COVID-19 Vaccine History Last Done: 05/06/25 07:17
ED- Cardiac Assessment Last Done: 05/06/25 07:17
ED- Neurological Assessment Last Done: 05/06/25 07:17
[2025-05-06] MEDS: PROTONIX IV 80 MG IV (07:36)
[2025-05-06 07:49] LABS: Hematocrit 23.6 % (37.0-47.0); Hemoglobin 7.8 g/dL (12.0-16.0); Mean Corp Hgb Conc. 33.1 g/dL (33.0-37.0); Mean Corpuscular Volume 85.2 fL (81.0-99.0); Nucleated Red Blood Cells % 0.4 %; Platelet Count 279 10^3/uL (130-400); Red Cell Dist. Width 16.7 % (11.5-14.5)
[2025-05-06 08:04] LABS: INR 4.91; PT 45.1 Sec (11.4-14.6)
[2025-05-06 08:15] LABS: ALT (SGPT) 15 U/L (0-35); AST (SGOT) 29 U/L (14-36); Albumin 2.9 g/dl (3.5-5.0); Alkaline Phosphatase 77 U/L (38-126); Blood Urea Nitrogen 81 mg/dl (7-17); Calcium 8.5 mg/dl (8.4-10.2); Carbon Dioxide 18 mmol/L (22-30); Chloride 116 mmol/L (98-107); Estimated Creatinine Clearance 24 ml/min; Glucose 109 mg/dl (70-99); Magnesium 2.3 mg/dl (1.6-2.3); Potassium 5.1 mmol/L (3.5-5.1); Sodium 138 mmol/L (135-145); Total Protein 7.4 g/dl (6.3-8.2); eGFR 43.96
[2025-05-06 08:35] LABS: Troponin I 0.036 ng/ml
--- NOTE | 2025-05-06 10:23 | CON.GI ---
Addendum entered and electronically signed by Fatmata Ross Do, MD 05/06/25 16:06:
I saw and evaluated the patient. I reviewed the resident�s note and agree with findings and plan as documented in the resident�s consultative note.
In brief Chanda is a complex 69yo W with h/o CHF, CAD and mechanical AVR on coumadin who is readmitted for melena and anemia. She was recently d/sofy on 05/02/25. She has h/o occult GI bleeding in 2023 for which she had EGD/colon and video
capsule endoscopy x2 that did not reveal a source of GI blood loss. She also endorse an enteroscopy/EGD done at [facility] around that time. She denies nsaid use. She is on coumadin and INR has been supratherapeutic goal of 2.5-3.5 for some time. She
states INR had been stable for over 10yrs but in the last 5 harder to manage. Vitals reviewed. Exam NTTP, thin W chronically ill appearing. Labs reviewed INR 4.91 Hbg 9.9 to 7.8 today
Impression
- Melena and anemia
Suspect small bowel source ddx includes AVMs, ulcer or ectasias
- Supratherapeutic INR
- Mechanical AVR
- CAD
- CHF
- HTN
- Raynaud's
- CVA
- H/o Hodgkin's lymphoma
- H/o breast cancer
Recommendations
- CLD today
- Protonix IV BID
- Hold coumadin ok to bridge heparin if INR drops below therapeutic range
- 2 large bore IVs
- Monitor stool output
- Anticipate EGD/enteroscopy friday pending INR
- Add on vit B12 and folate
Will follow with you
Original Note:
Consultation
-
Date/Time Consultation Requested: 05/06/2025
Date/Time Consultation Performed: 05/06/2025
Medical History
Chief Complaint / HPI
Chief Complaint: Melena
History of Present Illness:
Ms. Osborn is a 69-year-old female who was in her usual state of health 2 weeks ago when she had developed symptoms of dyspepsia and odynophagia for which she came to the ER on 04/30/2025 and was discharged on PPIs after ruling out any acute
pathology on chest x-ray and abdominal CT. After going home, on 05/02/2025 she had episode of melena along with fresh blood for which she came back to the ER, her INR was supratherapeutic at that time and was admitted for further
evaluation. She received 2 packs of blood during her hospital stay at that time. Her melena self resolved and she remained hemodynamically stable so it was decided to hold off any endoscopy/colonoscopy at that time. Her warfarin was resumed on
05/04. She was discharged yesterday but as soon as she got home she started to have episodes of dizziness whenever she stood up. She had a bowel movement this morning and was unable to get up, she called her who helped her get up and then
saw black stools in the toilet bowl. She denies any abdominal pain, nausea, vomiting, any fresh blood in the stool or fevers.
On arrival to the ER, her INR was 4.9 and hemoglobin was 7.8. She was discharged on hemoglobin of 9.9 , there was a 2 point drop in the hemoglobin this admission,blood transfusion was planned and GI consulted for further evaluation.
She follows up with Dr. Amaral every 6 months and receives IV iron infusions
Follows up with Dr. Estrada, is her primary behavioral health aide
Past Medical History
Past Medical History: Other (Obscure GI bleed, CVA, AVR, Hodgkin's lymphoma, breast cancer, hypertension, hypothyroid, Coronary disease, status post WI, heart failure with preserved ejection fraction, mitral valve stenosis, gastroparesis)
Past Surgical History: Other (Mechanical AVR, bilateral mastectomy, thyroidectomy, splenectomy)
Social History
Tobacco: Former Smoker
Alcohol: Occasional
Drug: None
Personal:
Living: With Family
Family History
Family History: Reviewed & Not Pertinent
Allergies / Home Medications
Allergy/AdvReac Type Severity Reaction Status Date / Time
palbociclib (From [facility]) Allergy Tongue Verified 05/02/25 08:07
Swelling
Penicillins Allergy throat Verified 05/02/25 08:07
swelling-
tolertates
amoxicillin
tramadol Allergy throat Verified 05/02/25 08:07
swelling
�Medication �Instructions �Recorded
levothyroxine 88 mcg tablet 88 mcg PO DAILY AT 0700 Thyroid 07/16/21
metoprolol succinate 50 mg 50 mg PO BID Blood Pressure 10/24/24
tablet,extended release 24 hr
pantoprazole 40 mg tablet,delayed 40 mg PO DAILY #30 tabs 05/05/25
release (Protonix)
azelastine 137 mcg (0.1 %) nasal 2 spray intranasal BIDPRN PRN 05/06/25
spray congestion
celecoxib 100 mg capsule 100 mg PO BIDPRN PRN pain 05/06/25
furosemide 20 mg tablet (Lasix) 20 mg PO SUTUTHSA@0800 05/06/25
furosemide 40 mg tablet 40 mg PO MOWEFR@0805/06/25
lisinopril 10 mg tablet 10 mg PO DAILY 05/06/25
lorazepam 0.5 mg tablet 0.5 mg PO BIDPRN PRN anxiety 05/06/25
warfarin 2.5 mg tablet 2.5 mg PO .6 DAYS A WEEK,OFF 1 05/06/25
valve
Review of Systems
-
All other systems: A 12 pt ROS was Negative except as stated above in HPI
Vital Signs
Temp Pulse Resp BP Pulse Ox
98.5 F 86 26 104/46 99
05/06/25 07:17 05/06/25 10:11 05/06/25 10:11 05/06/25 10:11 05/06/25 10:11
Physical Exam
Exam
General: Other (Pale, very fragile, chronically ill appearing)
Respiratory: Clear; Negative Wheezes or Rales
Cardiac: S1/S2 and Murmur (Ejection systolic murmur in aortic area)
GI: Soft, Non Tender, Non Distended and Normal Bowel Sounds
Skin: Warm and Dry
Neuro: Awake and Nonfocal/Grossly Intact
Psych: Calm
Results
WBC 5.6 10^3/uL (4.8-10.8) 05/06/25 07:14
Hgb 7.8 g/dL (12.0-16.0) L D 05/06/25 07:14
Hct 23.6 % (37.0-47.0) L 05/06/25 07:14
MCV 85.2 fL (81.0-99.0) 05/06/25 07:14
Plt Count 279 10^3/uL (130-400) 05/06/25 07:14
Absolute Neuts (auto) 3.6 10^3/uL (1.4-6.5) 05/06/25 07:14
PT 45.1 Sec (11.4-14.6) H 05/06/25 07:35
INR 4.91 05/06/25 07:35
Sodium 138 mmol/L (135-145) 05/06/25 07:14
Potassium 5.1 mmol/L (3.5-5.1) 05/06/25 07:14
Chloride 116 mmol/L (98-107) H 05/06/25 07:14
Carbon Dioxide 18 mmol/L (22-30) L 05/06/25 07:14
BUN 81 mg/dl (7-17) H 05/06/25 07:14
Creatinine 1.3 mg/dL (0.6-1.0) H 05/06/25 07:14
Calcium 8.5 mg/dl (8.4-10.2) 05/06/25 07:14
Total Bilirubin 0.3 mg/dl (0.2-1.3) 05/06/25 07:14
AST 29 U/L (14-36) 05/06/25 07:14
ALT 15 U/L (0-35) 05/06/25 07:14
Alkaline Phosphatase 77 U/L (38-126) 05/06/25 07:14
Diagnostic Image Results:
Prior GI Procedures:
EGD:
10/2023:
Impression: - No gross lesions in the entire esophagus.
- Z-line irregular, 33 cm from the incisors. Biopsied.
- Small hiatal hernia.
- No gross lesions in the entire stomach.
- Normal examined duodenum.
Colonoscopy:
10/2023:
Impression: - The examined portion of the ileum was normal.
- Tortuous colon.
- Internal hemorrhoids.
- No specimens collected.
Assessment / Plan
-
Impression
Ms. Osborn is a 69-year-old female admitted with melena and anemia, likely secondary to recurrent GI bleeding in the setting of complicated medical history, including CVA on warfarin discontinuation, Hodgkin lymphoma, breast cancer and aortic valve
replacement.
Assessment/plan
Supratherapeutic INR
Acute on chronic [id number] with dizziness-increased BUN
Melena
Elevated troponins
Hypoalbuminemia
Glascow Blatchford score-17
Iron studies 05/03-iron 65, total iron binding capacity 242, ferritin 174, transferrin saturation 26%
Plan
Keep hemoglobin greater than 7
Continue PPIs
Monitor INR-currently supratherapeutic 4.9-last warfarin dose yesterday morning
Since patient has a complicated history with discontinuation of anticoagulation-consider bridging with heparin
Agree with blood transfusion
Plan endoscopy-to determine source of bleeding
If endoscopy inconclusive-May need colonoscopy/enterography
DVT prophylaxis-SCDs
CODE STATUS-DNR
-
-
Thank you for consultation and allowing me to participate in the patient's care. Please call the central communications specialist GI physician during the after hours with any questions or concerns.
[2025-05-06] MEDS: NSS 1000 IV (11:11)
--- NOTE | 2025-05-06 11:29 | CM ---
CM reviewed chart, patient seen bedside with , initial assessment completed. Patient is a 69yoF with a history of mechanical valve on Coumadin, prior CVA, coronary artery disease, pulmonary hypertension, CHF, hypertension, and hypothyroidism
presenting via EMS for evaluation of near syncope.
Patient resides with in a two story home, one step to enter. Patient denies DME in the home, reports history [facility] in past after a stroke, denies SNF. Patient PCP Melanie Haynes, pharmacy [facility], confirms prescription coverage.
Patient denies insecurities at home. CM will continue to follow for all discharge planning needs.
Plan; home with
--- NOTE | 2025-05-06 11:57 | HPS.HSE ---
Family Physician
-
Family Physician: Melanie Haynes MD
Chief Complaint
-
GI bleeding, symptomatic anemia requiring transfusions
History of Present Illness
Ms. Osborn is a 69-year-old female with a complicated medical history who presented with recurrent near syncope and melena. She was discharged home yesterday 05/05 after conservative treatment for GI bleeding and transfusion of 1 unit PRBCs. She
had a supratherapeutic INR during previous admission which returned to within normal limits on day of discharge. She did not want to pursue further evaluation with endoscopy at that time and so was discharged to home with plan for ongoing blood
work to monitor her hemoglobin levels. However she had a large bowel movement this morning with melena and became very weak and dizzy. So, her brought her back to the emergency department for further evaluation and management. Her
complicated medical history includes recurrent GI bleeding (no clear sources of bleeding identified after workup including capsule endoscopy), Hodgkin's lymphoma (status post radiation 1973), aortic stenosis (status post replacement with pediatric
mechanical valve due to scarring from radiation, on warfarin), mitral stenosis and regurgitation, pulmonary hypertension, HFpEF, breast cancer (2018, bilateral mastectomy, declined chemo and radiation, later treated with tamoxifen), CVA (right MCA
stroke 2005, recurrent 07/15/2022 while off warfarin with subtherapeutic INR), hypertension, and hypothyroidism.
In the ED, she was mildly hypotensive with a blood pressure 118/45, afebrile, and saturating appropriately on room air. Her labs were remarkable for an initial hemoglobin of 7.8 (down from 9.9 yesterday 05/05), INR of 4.9 (was 3.6 yesterday 05/05),
creatinine 1.3 with a BUN of 81. She was given IV fluids and started on IV Protonix and admitted for further evaluation and management.
Medical History
Past Medical History
Past Medical History: Reports Other
Additional Past Medical History:
recurrent GI bleeding (no clear sources of bleeding identified after workup including capsule endoscopy), Hodgkin's lymphoma (status post radiation 1973), aortic stenosis (status post replacement with pediatric mechanical valve due to scarring from
radiation, on warfarin), mitral stenosis and regurgitation, pulmonary hypertension, HFpEF, breast cancer (2018, bilateral mastectomy, declined chemo and radiation, later treated with tamoxifen), CVA (right MCA stroke 2005, recurrent 07/15/2022 while
off warfarin with subtherapeutic INR), hypertension, and hypothyroidism
Past Surgical History: Reports Other
Additional Past Surgical History:
[facility] mechanical aortic valve replacement 2006, bilateral mastectomy 2017, splenectomy, thyroidectomy
Social History
Tobacco: Former Smoker
Alcohol: Occasional
Drug: None
Personal:
Living: With Family
Family History
Family History: Not pertinent
Allergies / Home Medications
Allergies reflects when Allergies were last updated in [facility].
Home Medications with original date entered in [facility]
Allergy/Medication List:
Allergies
Allergy/AdvReac Type Severity Reaction Status Date / Time
palbociclib (From [facility]) Allergy Tongue Verified 05/02/25 08:07
Swelling
Penicillins Allergy throat Verified 05/02/25 08:07
swelling-
tolertates
amoxicillin
tramadol Allergy throat Verified 05/02/25 08:07
swelling
Home Medications
levothyroxine 88 mcg tablet 88 mcg PO DAILY AT 0700 Thyroid 07/16/21
metoprolol succinate 50 mg tablet,extended release 24 hr 50 mg PO BID Blood Pressure 10/24/24
pantoprazole 40 mg tablet,delayed release (Protonix) 40 mg PO DAILY #30 tabs 05/05/25
celecoxib 100 mg capsule 100 mg PO BIDPRN PRN pain 05/06/25
furosemide 20 mg tablet (Lasix) 20 mg PO SUTUTHSA@0800 Fluid Retention/Swelling 05/06/25
furosemide 40 mg tablet 40 mg PO MOWEFR@0800 Fluid Retention/Swelling 05/06/25
ipratropium bromide 42 mcg (0.06 %) nasal spray 2 spray intranasal BIDPRN PRN post-nasal drip 05/06/25
lisinopril 10 mg tablet 10 mg PO DAILY Blood Pressure 05/06/25
lorazepam 0.5 mg tablet 0.5 mg PO BIDPRN PRN anxiety 05/06/25
warfarin 2.5 mg tablet 2.5 mg PO .6 DAYS A WEEK,OFF 1 valve 05/06/25
Review of Systems
-
History Source: Patient
A 12 point ROS was completed and negative except as noted: Yes
Abdomen/GI: Reports Black Stools
Neurological: Reports Weakness
Physical Exam
Vital Signs
Vital Signs
Temp Pulse Resp BP Pulse Ox
98.5 F 86 26 104/46 99
05/06/25 07:17 05/06/25 10:11 05/06/25 10:11 05/06/25 10:11 05/06/25 10:11
Physical Exam
General: Appears Chronically Ill
Laboratory Results
-
05/06/25 07:14
Laboratory Results
PT 45.1 Sec (11.4-14.6) H 05/06/25 07:35
INR 4.91 05/06/25 07:35
Total Bilirubin 0.3 mg/dl (0.2-1.3) 05/06/25 07:14
AST 29 U/L (14-36) 05/06/25 07:14
ALT 15 U/L (0-35) 05/06/25 07:14
Alkaline Phosphatase 77 U/L (38-126) 05/06/25 07:14
Troponin I 0.036 ng/ml H* 05/06/25 07:14
Impression/Plan
-
General: No Apparent Distress, Comfortable and Conversant, cachectic
HEENT: NormoCephalic, Moist mucous membranes, Atraumatic
Respiratory: Clear and Non Labored Respirations
Cardiac: S1/S2 and Regular Rhythm; No Rub or Gallop
GI: Soft, Non Tender, Non Distended and Normal Bowel Sounds
Musculoskeletal: No Edema, bilateral mastectomy, decreased muscle bulk throughout
Skin: Warm and dry
: NO Church
Neuro: Awake, Alert, Nonfocal/grossly intact
Psych: Calm and Intact Judgment/Insight
Ms. Osborn is a 69-year-old female with a complicated medical history who presented with recurrent near syncope and melena. She was discharged home yesterday 05/05 after conservative treatment for GI bleeding and transfusion of 1 unit PRBCs. She
had a supratherapeutic INR during previous admission which returned to within normal limits on day of discharge. She did not want to pursue further evaluation with endoscopy at that time and so was discharged to home with plan for ongoing blood
work to monitor her hemoglobin levels. However she had a large bowel movement this morning with melena and became very weak and dizzy. So, her brought her back to the emergency department for further evaluation and management. Her
complicated medical history includes recurrent GI bleeding (no clear sources of bleeding identified after workup including capsule endoscopy), Hodgkin's lymphoma (status post radiation 1973), aortic stenosis (status post replacement with pediatric
mechanical valve due to scarring from radiation, on warfarin), mitral stenosis and regurgitation, pulmonary hypertension, HFpEF, breast cancer (2018, bilateral mastectomy, declined chemo and radiation, later treated with tamoxifen), CVA (right MCA
stroke 2005, recurrent 07/15/2022 while off warfarin with subtherapeutic INR), hypertension, and hypothyroidism.
In the ED, she was mildly hypotensive with a blood pressure 118/45, afebrile, and saturating appropriately on room air. Her labs were remarkable for an initial hemoglobin of 7.8 (down from 9.9 yesterday 05/05), INR of 4.9 (was 3.6 yesterday 05/05),
creatinine 1.3 with a BUN of 81. She was given IV fluids and started on IV Protonix and admitted for further evaluation and management.
GI bleeding:
- With acute blood loss anemia requiring transfusions
- Associated with/exacerbated by warfarin use with supratherapeutic INR
- Hold warfarin, bridge with IV heparin drip, monitor INR
- N.p.o. for now, plan for endoscopy, at least EGD, may need colonoscopy/enterography
- Continue IV PPI
- Transfusing another unit of PRBCs today
- Monitor hemoglobin
- Gentle IV fluids as needed cautiously considering HFpEF
History of mechanical aortic valve replacement:
- INR 4.9 this morning, holding home warfarin, bridging with IV heparin pending GI procedures, usual INR goal of 2.5-3.5
[place]:
- Very mild with a creatinine of 1.3 which has been improving over the past few days
- Continue gentle IV fluids considering history of valvular disease and HFpEF
- Continue to hold scheduled Lasix for now, holding home celecoxib and lisinopril
Hypertension:
- Chronic
- Holding home lisinopril due to [place] and hypotension
Hypothyroidism:
- Continue home levothyroxine 88 mcg daily
Chronic HFpEF:
- Currently compensated
- Holding scheduled Lasix due to [place] and hypotension
- Continue home metoprolol succinate 50 mg p.o. twice daily
Moderate protein calorie malnutrition:
- Likely secondary to multiple comorbidities and associated poor p.o. intake
- Continue dietary supplements as tolerated
DVT prophylaxis: Supratherapeutic INR, heparin bridge
CODE STATUS: DNR
Total time spent on today's encounter was 60 minutes
--- NOTE | 2025-05-06 17:05 | EDRN ---
this RN called the receiving unit and notified them that paper report was going to be tubed up
[2025-05-06 20:52] LABS: Hematocrit 26.5 % (37.0-47.0); Hemoglobin 9.0 g/dL (12.0-16.0)
[2025-05-06] MEDS: NSS (PRESERVATIVE FREE) 10 ML IV (20:52)
[2025-05-06] MEDS: PROTONIX IV 40 MG IV (20:52)
[2025-05-06] MEDS: TOPROL XL 50 MG PO (21:02)
[2025-05-06 21:24] LABS: Troponin I 0.036 ng/ml
[2025-05-06] MEDS: ATIVAN 0.5 MG PO (22:28)
[2025-05-07 03:28] VITALS: BP 116/48
[2025-05-07 03:56] LABS: Troponin I 0.049 ng/ml
[2025-05-07 05:15] VITALS: BMI 17.2
[2025-05-07] MEDS: SYNTHROID 88 MCG PO (06:11)
[2025-05-07 08:00] VITALS: BP 117/50
[2025-05-07] MEDS: NSS (PRESERVATIVE FREE) 10 ML IV (08:19)
[2025-05-07] MEDS: PROTONIX IV 40 MG IV ×2 (08:19→19:46)
[2025-05-07] MEDS: TOPROL XL 50 MG PO ×2 (08:20→19:46)
[2025-05-07 09:11] LABS: Hematocrit 26.5 % (37.0-47.0); Hemoglobin 9.1 g/dL (12.0-16.0)
[2025-05-07 09:24] LABS: PT 53.7 Sec (11.4-14.6)
[2025-05-07 09:25] LABS: INR 6.19
[2025-05-07 10:31] LABS: Blood Urea Nitrogen 59 mg/dl (7-17); Calcium 8.4 mg/dl (8.4-10.2); Carbon Dioxide 17 mmol/L (22-30); Chloride 116 mmol/L (98-107); Estimated Creatinine Clearance 28 ml/min; Glucose 87 mg/dl (70-99); Potassium 4.6 mmol/L (3.5-5.1); Sodium 138 mmol/L (135-145); eGFR 53.72
--- NOTE | 2025-05-07 10:31 | W.PN.GI.CBS2 ---
Addendum entered and electronically signed by Fatmata Ross Do, MD 05/07/25 12:59:
I saw and evaluated the patient. I reviewed the resident�s note and agree with findings and plan as documented in the resident�s note.
No acute events overnight. No further BM. Denies abd pain. Vitals stable, exam thin NTTP. NABS. Labs reviewed. Imaging reviewed. CTAP 04/30 with R pelvic side wall lymphadenopathy and patchy pulm opacities, small R pleural effusion.
Recommendations
-INR continues to be supratherapeutic. Reversal would be high risk given her mechanical AVR
- Hold coumadin
- Hbg thus far stable
- Adv to low fat diet with ensure
- Monitor stool output
- C/w Protonix 40mg IV BID
- Anticipate EGD/enteroscopy Friday if INR <2.5. Ok for heparin bridge per primary team if needed
Will follow with you
Original Note:
Today's Communication / Plan
-
Residue diet with Ensure
Assessment / Plan
-
Impression
Ms. Osborn is a 69-year-old female with past medical history of coronary artery disease, mechanical aortic valve replacement on Coumadin with recurrent GI bleeds is admitted with melena and anemia. She is on Coumadin and her INR was
supratherapeutic on admission. Her goal INR is 2.5-3.5, INR this morning is 6.
Assessment/plan
Melena and anemia
Supratherapeutic INR
Coronary artery disease
Raynaud's phenomena
History of breast cancer and Hodgkin lymphoma
Iron studies 05/03-iron 65, total iron binding capacity 242, ferritin 174, transferrin saturation 26%
Plan
Low residue diet with Ensure supplement
Keep hemoglobin greater than 7
Continue PPIs
Monitor INR, continue to hold warfarin okay to bridge with heparin if INR drops below therapeutic range
Anticipating endoscopy/enteroscopy on Friday if the INR drops back in therapeutic range
Monitor stool output
DVT prophylaxis-SCDs
CODE STATUS-DNR
Subjective
Subjective
Date of Service: May 07, 2025
Patient seen and examined at bedside
No further bowel movements, any abdominal pain, nausea or vomiting
Expressed, that she wants to eat food
Objective
Data Reviewed
Laboratory Data:
Laboratory Results
05/07/25 10:02
Laboratory Results
PT 53.7 Sec (11.4-14.6) H 05/07/25 08:59
INR 6.19 H* 05/07/25 08:59
Magnesium 2.3 mg/dl (1.6-2.3) 05/06/25 07:14
Total Bilirubin 0.3 mg/dl (0.2-1.3) 05/06/25 07:14
AST 29 U/L (14-36) 05/06/25 07:14
ALT 15 U/L (0-35) 05/06/25 07:14
Alkaline Phosphatase 77 U/L (38-126) 05/06/25 07:14
Vital Signs and I&O:
Vital Signs
Temp Pulse Resp BP Pulse Ox
97.8 F 83 18 117/50 100
05/07/25 08:00 05/07/25 08:20 05/07/25 08:00 05/07/25 08:20 05/07/25 08:00
I&O
05/06/25 05/07/25 05/08/25
06:59 06:59 06:59
Intake Total 610 / 610
Balance 610 / 610
Physical Exam
Physical Exam
HEENT: Moist mucous membranes
Cardiology: S1 and S2
Pulmonary: Clear
GI: Soft, Non Distended, Non Tender and Normal Bowel Sounds
Extremities: No Edema
[2025-05-07 10:39] LABS: Troponin I 0.039 ng/ml
--- NOTE | 2025-05-07 10:49 | W.PN.HOSP.TC ---
Today's Communication/Plan
-
Assessment / Plan
Assessment / Plan
General: No Apparent Distress, Comfortable and Conversant, cachectic
HEENT: NormoCephalic, Moist mucous membranes, Atraumatic
Respiratory: Clear and Non Labored Respirations
Cardiac: S1/S2 and Regular Rhythm; No Rub or Gallop
GI: Soft, Non Tender, Non Distended and Normal Bowel Sounds
Musculoskeletal: No Edema, bilateral mastectomy, decreased muscle bulk throughout
Skin: Warm and dry
: NO Chucrh
Neuro: Awake, Alert, Nonfocal/grossly intact
Psych: Calm and Intact Judgment/Insight, tearful and overwhelmed
Ms. Osborn is a 69-year-old female with a complicated medical history who presented with recurrent near syncope and melena. She was discharged home yesterday 05/05 after conservative treatment for GI bleeding and transfusion of 1 unit PRBCs. She
had a supratherapeutic INR during previous admission which returned to within normal limits on day of discharge. She did not want to pursue further evaluation with endoscopy at that time and so was discharged to home with plan for ongoing blood
work to monitor her hemoglobin levels. However she had a large bowel movement this morning with melena and became very weak and dizzy. So, her brought her back to the emergency department for further evaluation and management. Her
complicated medical history includes recurrent GI bleeding (no clear sources of bleeding identified after workup including capsule endoscopy), Hodgkin's lymphoma (status post radiation 1973), aortic stenosis (status post replacement with pediatric
mechanical valve due to scarring from radiation, on warfarin), mitral stenosis and regurgitation, pulmonary hypertension, HFpEF, breast cancer (2018, bilateral mastectomy, declined chemo and radiation, later treated with tamoxifen), CVA (right MCA
stroke 2005, recurrent 07/15/2022 while off warfarin with subtherapeutic INR), hypertension, and hypothyroidism.
In the ED, she was mildly hypotensive with a blood pressure 118/45, afebrile, and saturating appropriately on room air. Her labs were remarkable for an initial hemoglobin of 7.8 (down from 9.9 yesterday 05/05), INR of 4.9 (was 3.6 yesterday 05/05),
creatinine 1.3 with a BUN of 81. She was given IV fluids and started on IV Protonix and admitted for further evaluation and management.
GI bleeding:
- With acute blood loss anemia requiring transfusions
- Associated with/exacerbated by warfarin use with supratherapeutic INR
- Received transfusion of 1 unit PRBCs yesterday 05/06 with improvement of her hemoglobin from 7.8-9.0, hemoglobin remained stable at 9.1 this morning
- Holding warfarin, INR up to 6.1 today, no need for heparin bridging currently, will monitor
- Low residue diet for now, plan for eventual endoscopy once INR is at least back within therapeutic range
- Continue IV PPI
- Currently hemodynamically stable, can give IV fluids as needed cautiously considering HFpEF
History of mechanical aortic valve replacement:
- INR 6.1 this morning, holding home warfarin, bridge with IV heparin as needed once INR recovers pending GI procedures, usual INR goal of 2.5-3.5
[place]:
- Very mild with a creatinine of 1.3 at time of admission, had been up to 1.9 on 05/02
- Renal function continues to improve with a creatinine of 1.1 on labs this morning
- Holding further IV fluids for now, if needed can give gentle IV fluids considering history of valvular disease and HFpEF
- Continue to hold scheduled Lasix for now, holding home celecoxib and lisinopril
Hypertension:
- Chronic
- Holding home lisinopril due to [place] and hypotension
Hypothyroidism:
- Continue home levothyroxine 88 mcg daily
Chronic HFpEF:
- Currently compensated
- Holding scheduled Lasix due to [place] and hypotension
- Continue home metoprolol succinate 50 mg p.o. twice daily
Moderate protein calorie malnutrition:
- Likely secondary to multiple comorbidities and associated poor p.o. intake
- Continue dietary supplements as tolerated
DVT prophylaxis: Supratherapeutic INR, heparin bridge
CODE STATUS: DNR
Total time spent on today's encounter was 40 minutes
Anticipated Discharge: > 48 hours
Subjective/Interval History
-
Date of Service: May 07, 2025
Patient was seen and examined at bedside this morning. Tearful about her multiple comorbidities including acute GI bleeding and difficulty controlling her INR. Her INR this morning was 6.1
Objective Data
-
Labs:
Laboratory Results
05/07/25 05/07/25 05/07/25
08:59 10:02 20:00
Hgb 9.1 L Pending
Hct 26.5 L Pending
PT 53.7 H
INR 6.19 H*
Sodium 138
Potassium 4.6
Chloride 116 H
Carbon Dioxide 17 L
BUN 59 H
Creatinine 1.1 H
Glucose 87
Calcium 8.4
Vital Signs:
Vital Signs
Temp Pulse Resp BP Pulse Ox
97.8 F 83 18 117/50 100
05/07/25 08:00 05/07/25 08:20 05/07/25 08:00 05/07/25 08:20 05/07/25 08:00
I&O
05/06/25 05/07/25 05/08/25
06:59 06:59 06:59
Intake Total 610 / 610
Balance 610 / 610
Review of Systems
-
History Source: Patient
All other systems: Reviewed and negative
Psych: Reports Sad and Anxious
Physical Exam
-
General: No Apparent Distress and Appears Chronically Ill
[2025-05-07 11:44] LABS: Folate 12.1 ng/ml (2.76-20); Vitamin B12 434 pg/ml (239-931)
[2025-05-07 12:00] VITALS: BP 127/54
[2025-05-07 14:20] VITALS: BMI 17.2
[2025-05-07 16:00] VITALS: BP 106/47
--- NOTE | 2025-05-07 18:25 | PTCARENOTE ---
this nurse s/w attending RE: 1500 troponin. pt is VERY difficult stick, and asking for less blood draws and has needed VAT assistance for previous draws. per attending ok to move troponin to 20:00 to coordinate with H&H. pt in agreement.
[2025-05-07 19:47] VITALS: BP 108/44
[2025-05-07] MEDS: ATIVAN 0.5 MG PO (19:50)
[2025-05-07 20:39] LABS: Hematocrit 24.3 % (37.0-47.0); Hemoglobin 8.3 g/dL (12.0-16.0)
[2025-05-07 21:03] LABS: Troponin I 0.033 ng/ml
[2025-05-07 23:05] VITALS: BP 104/44
[2025-05-08] VITALS (11 sets, daily range): BP systolic 99–112; BP diastolic 37–48; BMI 16.7
[2025-05-08] MEDS: NSS (PRESERVATIVE FREE) IV (07:26)
[2025-05-08] MEDS: NSS (PRESERVATIVE FREE) 10 ML IV ×2 (08:12→20:54)
[2025-05-08] MEDS: SYNTHROID 88 MCG PO (08:14)
[2025-05-08] MEDS: PROTONIX IV 40 MG IV ×2 (08:14→20:54)
[2025-05-08] MEDS: TOPROL XL PO (08:14)
[2025-05-08 08:15] LABS: INR 4.34; PT 41.1 Sec (11.4-14.6)
[2025-05-08 08:23] LABS: Hematocrit 24.1 % (37.0-47.0); Hemoglobin 8.1 g/dL (12.0-16.0)
--- NOTE | 2025-05-08 10:08 | W.PN.GI.CBS2 ---
Today's Communication / Plan
-
C/w regular diet and ensure TID
Trend INR
Anticipate EGD/enteroscopy when <2
Will follow with you
Assessment / Plan
-
In brief Chanda is a complex 69yo W with h/o CHF, CAD and mechanical AVR on coumadin who is readmitted for melena and anemia. She was recently d/sofy on 05/02/25. She has h/o occult GI bleeding in 2023 for which she had EGD/colon and video
capsule endoscopy x2 that did not reveal a source of GI blood loss. She also endorse an enteroscopy/EGD done at [facility] around that time. She denies nsaid use. She is on coumadin and INR has been supratherapeutic goal of 2.5-3.5 for some time. She
states INR had been stable for over 10yrs but in the last 5 harder to manage. Vitals reviewed. Exam NTTP, thin W chronically ill appearing. Labs reviewed INR 4.91 Hbg 9.9 to 7.8 today
Impression
- Melena and anemia
- Suspect small bowel source ddx includes AVMs, ulcer or ectasias
- Supratherapeutic INR
- Mechanical AVR
- CAD
- CHF
- HTN
- Raynaud's
- CVA
- H/o Hodgkin's lymphoma
- H/o breast cancer
Recommendations
- Tolerating low residue diet and ensure supplements
- C/w Protonix IV BID
- Hold coumadin ok to bridge heparin if INR drops below therapeutic range 2.5-3.5
- 2 large bore IVs
- Monitor stool output none yet
- Anticipate EGD/enteroscopy once INR is <2
- NPO at NH just incase but timing may be Friday
Will follow with you.
Subjective
Subjective
Date of Service: May 08, 2025
No further BM or melena since admission. She is tolerating regular diet and likes ensure vanilla. Was walking hallways but less today due to dizzizness
Objective
Data Reviewed
Laboratory Data:
Laboratory Results
05/08/25 07:23
05/07/25 10:02
Laboratory Results
PT 41.1 Sec (11.4-14.6) H 05/08/25 07:23
INR 4.34 05/08/25 07:23
Magnesium 2.3 mg/dl (1.6-2.3) 05/06/25 07:14
Total Bilirubin 0.3 mg/dl (0.2-1.3) 05/06/25 07:14
AST 29 U/L (14-36) 05/06/25 07:14
ALT 15 U/L (0-35) 05/06/25 07:14
Alkaline Phosphatase 77 U/L (38-126) 05/06/25 07:14
Vital Signs and I&O:
Vital Signs
Temp Pulse Resp BP Pulse Ox
97.9 F 78 16 99/41 97
05/08/25 08:00 05/08/25 08:14 05/08/25 08:00 05/08/25 08:14 05/08/25 08:00
I&O
05/07/25 05/08/25 05/09/25
06:59 06:59 06:59
Intake Total 1090 / 1090 720 / 720
Balance 1090 / 1090 720 / 720
Physical Exam
Physical Exam
GEN: No acute distress, conversant, pleasant very thin
HEENT: anicteric, extraocular movements intact, clear oropharynx without exudates
GI: soft, non-distended, not tender to palpation, normal active bowel sounds, no hepatosplenomegaly
EXT: warm, well perfused, trace edema bilaterally
NEURO: AAOx3, non-focal
--- NOTE | 2025-05-08 14:57 | W.PN.HOSP.TC ---
Today's Communication/Plan
-
Assessment / Plan
Assessment / Plan
General: No Apparent Distress, Comfortable and Conversant, cachectic
HEENT: NormoCephalic, Moist mucous membranes, Atraumatic
Respiratory: Clear and Non Labored Respirations
Cardiac: S1/S2 and Regular Rhythm; No Rub or Gallop
GI: Soft, Non Tender, Non Distended and Normal Bowel Sounds
Musculoskeletal: No Edema, bilateral mastectomy, decreased muscle bulk throughout
Skin: Warm and dry
: NO Church
Neuro: Awake, Alert, Nonfocal/grossly intact
Psych: Calm and Intact Judgment/Insight, tearful and overwhelmed
Ms. Osborn is a 69-year-old female with a complicated medical history who presented with recurrent near syncope and melena. She was discharged home yesterday 05/05 after conservative treatment for GI bleeding and transfusion of 1 unit PRBCs. She
had a supratherapeutic INR during previous admission which returned to within normal limits on day of discharge. She did not want to pursue further evaluation with endoscopy at that time and so was discharged to home with plan for ongoing blood
work to monitor her hemoglobin levels. However she had a large bowel movement this morning with melena and became very weak and dizzy. So, her brought her back to the emergency department for further evaluation and management. Her
complicated medical history includes recurrent GI bleeding (no clear sources of bleeding identified after workup including capsule endoscopy), Hodgkin's lymphoma (status post radiation 1973), aortic stenosis (status post replacement with pediatric
mechanical valve due to scarring from radiation, on warfarin), mitral stenosis and regurgitation, pulmonary hypertension, HFpEF, breast cancer (2018, bilateral mastectomy, declined chemo and radiation, later treated with tamoxifen), CVA (right MCA
stroke 2005, recurrent 07/15/2022 while off warfarin with subtherapeutic INR), hypertension, and hypothyroidism.
In the ED, she was mildly hypotensive with a blood pressure 118/45, afebrile, and saturating appropriately on room air. Her labs were remarkable for an initial hemoglobin of 7.8 (down from 9.9 yesterday 05/05), INR of 4.9 (was 3.6 yesterday 05/05),
creatinine 1.3 with a BUN of 81. She was given IV fluids and started on IV Protonix and admitted for further evaluation and management.
GI bleeding:
- With acute blood loss anemia requiring transfusions
- Associated with/exacerbated by warfarin use with supratherapeutic INR
- Received transfusion of 1 unit PRBCs 05/06 with improvement of her hemoglobin from 7.8-9.0, hemoglobin dropped back down to 8.1 this morning with significant associated weakness, will transfuse another unit PRBCs today
- Holding warfarin, INR improved to 4.3 today, no need for heparin bridging currently, will monitor
- Regular diet for now, n.p.o. after midnight for possible endoscopy in the morning, will need to follow-up with GI tomorrow about endoscopy plans
- Continue IV PPI
- Currently hemodynamically stable, can give IV fluids as needed cautiously considering HFpEF
History of mechanical aortic valve replacement:
- INR 4.3 this morning, holding home warfarin, bridge with IV heparin as needed once INR recovers pending GI procedures, usual INR goal of 2.5-3.5
[place]:
- Very mild with a creatinine of 1.3 at time of admission, had been up to 1.9 on 05/02
- Resolved, creatinine 1.1 on labs this morning
- Holding further IV fluids for now, if needed can give gentle IV fluids considering history of valvular disease and HFpEF
- Continue to hold scheduled Lasix for now, holding home celecoxib and lisinopril
Hypertension:
- Chronic
- Holding home lisinopril due to [place] and hypotension
Hypothyroidism:
- Continue home levothyroxine 88 mcg daily
Chronic HFpEF:
- Currently compensated
- Holding scheduled Lasix due to [place] and hypotension
- Continue home metoprolol succinate 50 mg p.o. twice daily
Moderate protein calorie malnutrition:
- Likely secondary to multiple comorbidities and associated poor p.o. intake
- Continue dietary supplements as tolerated
DVT prophylaxis: Supratherapeutic INR, heparin bridge
CODE STATUS: DNR
Total time spent on today's encounter was 40 minutes
Anticipated Discharge: 24 - 48 hours
Subjective/Interval History
-
Date of Service: May 08, 2025
Patient was seen and examined at bedside this morning. Feeling weak, hemoglobin dropped to 8.1, INR improved to 4.3.
Objective Data
-
Labs:
Laboratory Results
05/08/25
07:23
Hgb 8.1 L
Hct 24.1 L
PT 41.1 H
INR 4.34
Vital Signs:
Vital Signs
Temp Pulse Resp BP Pulse Ox
98.0 F 90 16 104/48 99
05/08/25 12:43 05/08/25 12:43 05/08/25 12:43 05/08/25 12:43 05/08/25 12:42
I&O
05/07/25 05/08/25 05/09/25
06:59 06:59 06:59
Intake Total 1090 / 1090 720 / 720 0 / 0
Balance 1090 / 1090 720 / 720 0 / 0
Review of Systems
-
History Source: Patient
All other systems: Reviewed and negative
Constitutional: Reports Fatigue and Weakness
Physical Exam
-
General: No Apparent Distress
[2025-05-08] MEDS: TOPROL XL 50 MG PO (20:55)
[2025-05-08] MEDS: ATIVAN 0.5 MG PO (20:58)
[2025-05-09] VITALS (9 sets, daily range): BP systolic 16–167; BP diastolic 45–68; BMI 17.3
[2025-05-09 06:29] LABS: Hematocrit 28.1 % (37.0-47.0); Hemoglobin 9.3 g/dL (12.0-16.0)
[2025-05-09 06:33] LABS: INR 1.81; PT 21.1 Sec (11.4-14.6)
[2025-05-09 06:49] LABS: Blood Urea Nitrogen 55 mg/dl (7-17); Calcium 8.3 mg/dl (8.4-10.2); Carbon Dioxide 22 mmol/L (22-30); Chloride 116 mmol/L (98-107); Estimated Creatinine Clearance 27 ml/min; Glucose 91 mg/dl (70-99); Potassium 4.4 mmol/L (3.5-5.1); Sodium 139 mmol/L (135-145); eGFR 53.72
--- NOTE | 2025-05-09 08:11 | W.PN.HOSP.TC ---
Today's Communication/Plan
-
see plan
Assessment / Plan
Assessment / Plan
69-year-old female with a complicated medical history who presented with recurrent near syncope and melena. She was discharged home yesterday 05/05 after conservative treatment for GI bleeding and transfusion of 1 unit PRBCs. She had a
supratherapeutic INR during previous admission which returned to within normal limits on day of discharge. She did not want to pursue further evaluation with endoscopy at that time and so was discharged to home with plan for ongoing blood work to
monitor her hemoglobin levels. However she had a large bowel movement this morning with melena and became very weak and dizzy. So, her brought her back to the emergency department for further evaluation and management. Her complicated
medical history includes recurrent GI bleeding (no clear sources of bleeding identified after workup including capsule endoscopy), Hodgkin's lymphoma (status post radiation 1973), aortic stenosis (status post replacement with pediatric mechanical
valve due to scarring from radiation, on warfarin), mitral stenosis and regurgitation, pulmonary hypertension, HFpEF, breast cancer (2018, bilateral mastectomy, declined chemo and radiation, later treated with tamoxifen), CVA (right MCA stroke 2005,
recurrent 07/15/2022 while off warfarin with subtherapeutic INR), hypertension, and hypothyroidism.
In the ED, she was mildly hypotensive with a blood pressure 118/45, afebrile, and saturating appropriately on room air. Her labs were remarkable for an initial hemoglobin of 7.8 (down from 9.9 yesterday 05/05), INR of 4.9 (was 3.6 yesterday 05/05),
creatinine 1.3 with a BUN of 81. She was given IV fluids and started on IV Protonix and admitted for further evaluation and management.
Gen: NAD, AAOx3.
Eyes: EOMI, PERRLA, no scleral icterus.
Neck: supple.
CV: RRR, +S1/S2, no m/r/g.
Resp: CTAB, no rales, wheezes, or rhonchi.
Abd: +BS, soft, NT, ND
Skin: No rashes.
Neuro: CN 2-12 intact, non-focal.
Psych: Normal mood and affect.
CXR 05/06/25:
1. Bibasilar linear opacities, unchanged compared to 04/30/2025, but new compared to prior chest CT dated 10/27/2023. Findings may be related to bibasilar pneumonia, aspiration, or subsegmental atelectasis. Radiographic follow-up to resolution is
suggested.
2. No significant pleural effusion or pneumothorax on either side.
EGD 05/09/25: Normal esophagus. Small hiatal hernia. Gastritis no old or fresh blood seen. Duodenum normal. Unable to pass through jejunum using colonoscope. No specimens collected.
Acute blood loss anemia due to acute GI bleeding:
-exacerbated by warfarin use with supratherapeutic INR (coumadin coagulopathy)
-s/p 2U pRBCs
-INR now 1.81 after holding coumadin
-EGD 05/09/25 with with gastritis but no old or fresh blood
-OK to restart heparin gtt as per discussion with GI
-colonoscopy tomorrow
-cont PPI
-trend Hb
[place]:
-resolved with IVFs
-cont to hold home lasix
Other problems:
Essential HTN: Holding home ACEi/Lasix, cont BB
Hypothyroidism: cont Levoxyl
Chronic HFpEF: cont BB, holding home Lasix/ACEi with [place] and hypotension
Moderate protein calorie malnutrition
I had an extensive discussion with the patient and her at bedside. All questions were asked and answered.
DNR/heparin gtt
Total time spent on today's encounter was 50 minutes which included time spent in counseling the patient/family regarding diagnosis and treatment plan as listed above, goals of care, and symptom management. Case was discussed with nursing staff,
specialists, and care coordinators/case management. All labs and imaging personally reviewed by me. Remainder the time spent in detailed review of previous records, lab data, imaging, and other medical provider documentation.
Anticipated Discharge: 24 - 48 hours
Subjective/Interval History
-
Date of Service: May 09, 2025
No new complaints.
Objective Data
-
Labs:
Laboratory Results
05/09/25
05:51
Hgb 9.3 L
Hct 28.1 L
PT 21.1 H
INR 1.81 D
Sodium 139
Potassium 4.4
Chloride 116 H
Carbon Dioxide 22
BUN 55 H
Creatinine 1.1 H
Glucose 91
Calcium 8.3 L
Vital Signs:
Vital Signs
Temp Pulse Resp BP Pulse Ox
97.6 F 75 18 113/47 100
05/09/25 03:37 05/09/25 03:37 05/09/25 03:37 05/09/25 03:37 05/09/25 03:37
I&O
05/08/25 05/09/25 05/10/25
06:59 06:59 06:59
Intake Total 720 / 720 1490 / 1490
Balance 720 / 720 1490 / 1490
[2025-05-09 09:39] LABS: APTT 27.5 Sec (23.4-35.0)
[2025-05-09] MEDS: DULCOLAX 10 MG PO (09:43)
[2025-05-09] MEDS: ATIVAN 0.5 MG PO (09:43)
[2025-05-09] MEDS: SYNTHROID PO (09:44)
[2025-05-09] MEDS: TOPROL XL 50 MG PO ×2 (09:44→20:58)
[2025-05-09] MEDS: PROTONIX IV 40 MG IV ×2 (09:44→20:56)
[2025-05-09] MEDS: NSS (PRESERVATIVE FREE) 10 ML IV ×2 (09:44→20:57)
[2025-05-09 09:52] LABS: Mean Corp Hgb Conc. 33.3 g/dL (33.0-37.0); Mean Corpuscular Volume 88.3 fL (81.0-99.0); Platelet Count 316 10^3/uL (130-400); Red Cell Dist. Width 16.3 % (11.5-14.5)
[2025-05-09] MEDS: HEPARIN 25000 UNITS/250 ML IV (10:05)
--- NOTE | 2025-05-09 11:50 | CM ---
Reviewed the chart notes. Per notes, consider colonoscopy tomorrow if patient is able to tolerate. CM continues to be available to patient/family and is monitoring medical plan for needs at discharge.
Plan: Discharge plans will depend on the patient's progress.
[2025-05-09] MEDS: NULYTELY SOLUTION 4 LITERS PO (15:06)
[2025-05-09 16:35] LABS: APTT 46.4 Sec (23.4-35.0)
[2025-05-09 23:38] LABS: APTT 86.6 Sec (23.4-35.0)
[2025-05-10] VITALS (9 sets, daily range): BP systolic 104–156; BP diastolic 46–63; BMI 17.1
--- NOTE | 2025-05-10 04:47 | DOWNTIME ---
There was a [employer] Client Supervisor [employer]acing Downtime on 05/10/2025 from 0100 to 05/10/2025 at 0220. Downtime documentation of patient's care, including medication administrations, has been reconciled in the electronic record per guidelines. Refer to the
patient's paper chart under the miscellaneous tab to see printed paper medication records and downtime forms.
--- NOTE | 2025-05-10 05:17 | PTCARENOTE ---
pt drank half of her bowel prep, not able to tolerate all content. Has been having black liquid stools and later changed to green liquid color.
[2025-05-10] MEDS: SYNTHROID 88 MCG PO (05:58)
--- NOTE | 2025-05-10 06:04 | PTCARENOTE ---
Heparin on Hold per MD order.
[2025-05-10 07:01] LABS: INR 1.36; PT 17.0 Sec (11.4-14.6)
[2025-05-10 07:02] LABS: Hematocrit 30.7 % (37.0-47.0); Hemoglobin 10.1 g/dL (12.0-16.0); Mean Corp Hgb Conc. 32.9 g/dL (33.0-37.0); Mean Corpuscular Volume 89.8 fL (81.0-99.0); Platelet Count 389 10^3/uL (130-400); Red Cell Dist. Width 17.4 % (11.5-14.5)
[2025-05-10 07:03] LABS: APTT 97.3 Sec (23.4-35.0)
[2025-05-10 07:43] LABS: Blood Urea Nitrogen 39 mg/dl (7-17); Calcium 7.9 mg/dl (8.4-10.2); Carbon Dioxide 18 mmol/L (22-30); Chloride 116 mmol/L (98-107); Estimated Creatinine Clearance 25 ml/min; Glucose 91 mg/dl (70-99); Potassium 4.1 mmol/L (3.5-5.1); Sodium 140 mmol/L (135-145); eGFR 48.39
--- NOTE | 2025-05-10 08:17 | W.PN.HOSP.TC ---
Today's Communication/Plan
-
see plan
Assessment / Plan
Assessment / Plan
69-year-old female with a complicated medical history who presented with recurrent near syncope and melena. She was discharged home yesterday 05/05 after conservative treatment for GI bleeding and transfusion of 1 unit PRBCs. She had a
supratherapeutic INR during previous admission which returned to within normal limits on day of discharge. She did not want to pursue further evaluation with endoscopy at that time and so was discharged to home with plan for ongoing blood work to
monitor her hemoglobin levels. However she had a large bowel movement this morning with melena and became very weak and dizzy. So, her brought her back to the emergency department for further evaluation and management. Her complicated
medical history includes recurrent GI bleeding (no clear sources of bleeding identified after workup including capsule endoscopy), Hodgkin's lymphoma (status post radiation 1973), aortic stenosis (status post replacement with pediatric mechanical
valve due to scarring from radiation, on warfarin), mitral stenosis and regurgitation, pulmonary hypertension, HFpEF, breast cancer (2018, bilateral mastectomy, declined chemo and radiation, later treated with tamoxifen), CVA (right MCA stroke 2005,
recurrent 07/15/2022 while off warfarin with subtherapeutic INR), hypertension, and hypothyroidism.
In the ED, she was mildly hypotensive with a blood pressure 118/45, afebrile, and saturating appropriately on room air. Her labs were remarkable for an initial hemoglobin of 7.8 (down from 9.9 yesterday 05/05), INR of 4.9 (was 3.6 yesterday 05/05),
creatinine 1.3 with a BUN of 81. She was given IV fluids and started on IV Protonix and admitted for further evaluation and management.
Gen: NAD, AAOx3. Appears chronically ill malnourished, cachectic.
Eyes: EOMI, PERRLA, no scleral icterus.
Neck: supple.
CV: RRR, +S1/S2, no m/r/g.
Resp: CTAB, no rales, wheezes, or rhonchi.
Abd: +BS, soft, NT, ND
Skin: No rashes.
Neuro: CN 2-12 intact, non-focal.
Psych: Normal mood and affect.
CXR 05/06/25:
1. Bibasilar linear opacities, unchanged compared to 04/30/2025, but new compared to prior chest CT dated 10/27/2023. Findings may be related to bibasilar pneumonia, aspiration, or subsegmental atelectasis. Radiographic follow-up to resolution is
suggested.
2. No significant pleural effusion or pneumothorax on either side.
EGD 05/09/25: Normal esophagus. Small hiatal hernia. Gastritis no old or fresh blood seen. Duodenum normal. Unable to pass through jejunum using colonoscope. No specimens collected.
Acute blood loss anemia due to acute GI bleeding:
-exacerbated by warfarin use with supratherapeutic INR (coumadin coagulopathy)
-s/p 2U pRBCs
-INR now 1.36 after holding coumadin
-EGD 05/09/25 with with gastritis but no old or fresh blood
-heparin gtt on hold for colonoscopy this AM
-cont PPI
-trend Hb, currently stable at 10.1
[place]:
-resolved with IVFs
-cont to hold home lasix
Other problems:
Essential HTN: Holding home ACEi/Lasix, cont BB
Hypothyroidism: cont Levoxyl
Chronic HFpEF: cont BB, holding home Lasix/ACEi with [place] and hypotension
Moderate protein calorie malnutrition
DNR/heparin gtt
Anticipated Discharge: 24 - 48 hours
Subjective/Interval History
-
Date of Service: May 10, 2025
No new complaints.
Objective Data
-
Labs:
Laboratory Results
05/09/25 05/10/25
23:23 06:40
WBC 4.8
Hgb 10.1 L
Hct 30.7 L
Plt Count 389 D
PT 17.0 H
INR 1.36
APTT 86.6 H 97.3 H
Sodium 140
Potassium 4.1
Chloride 116 H
Carbon Dioxide 18 L
BUN 39 H
Creatinine 1.2 H
Glucose 91
Calcium 7.9 L
Vital Signs:
Vital Signs
Temp Pulse Resp BP Pulse Ox
97.7 F 80 16 137/57 100
05/10/25 03:15 05/10/25 03:15 05/10/25 03:15 05/10/25 03:15 05/10/25 03:15
I&O
05/09/25 05/10/25 05/11/25
06:59 06:59 06:59
Intake Total 1490 / 1490 1200 / 1200
Balance 1490 / 1490 1200 / 1200
[2025-05-10] MEDS: TOPROL XL PO (08:48)
[2025-05-10] MEDS: PROTONIX IV 40 MG IV ×2 (08:49→20:18)
[2025-05-10] MEDS: NSS (PRESERVATIVE FREE) 10 ML IV ×2 (08:49→20:18)
[2025-05-10] MEDS: COUMADIN 2.5 MG PO (12:31)
[2025-05-10] MEDS: HEPARIN 25000 UNITS/250 ML IV (12:32)
--- NOTE | 2025-05-10 12:58 | PTCARENOTE ---
Patient restarted back on her heparin gtt at 650 units per MD. Ptt to be drawn 6 hours after. Patient given 1200 dose of ordered warfarin. Patient resting comfortably in bed with at bedside.
--- NOTE | 2025-05-10 16:22 | CM ---
Reviewed the chart notes and spoke with the patient at the beside. IMM reviewed. Patient continues on heparin gtt. CM continues to be available to patient/family and is monitoring medical plan for needs at discharge.
Plan: Discharge to home when medically stable. No needs anticipated at this time.
[2025-05-10 20:03] LABS: APTT 88.1 Sec (23.4-35.0)
[2025-05-10] MEDS: TOPROL XL 50 MG PO (20:20)
[2025-05-10] MEDS: ATIVAN 0.5 MG PO (20:29)
[2025-05-11 02:17] LABS: APTT 192.6 Sec (23.4-35.0)
[2025-05-11 03:22] VITALS: BP 114/56
[2025-05-11 06:00] VITALS: BMI 17.1
[2025-05-11] MEDS: SYNTHROID 88 MCG PO (06:09)
[2025-05-11 06:22] LABS: Hematocrit 27.7 % (37.0-47.0); Hemoglobin 9.0 g/dL (12.0-16.0); Mean Corp Hgb Conc. 32.5 g/dL (33.0-37.0); Mean Corpuscular Volume 90.5 fL (81.0-99.0); Platelet Count 377 10^3/uL (130-400); Red Cell Dist. Width 17.4 % (11.5-14.5)
[2025-05-11 07:05] LABS: INR 1.60; PT 19.3 Sec (11.4-14.6)
[2025-05-11 07:07] LABS: Blood Urea Nitrogen 30 mg/dl (7-17); Calcium 7.9 mg/dl (8.4-10.2); Carbon Dioxide 17 mmol/L (22-30); Chloride 116 mmol/L (98-107); Estimated Creatinine Clearance 23 ml/min; Glucose 69 mg/dl (70-99); Potassium 4.1 mmol/L (3.5-5.1); Sodium 140 mmol/L (135-145); eGFR 43.96
[2025-05-11 07:57] VITALS: BP 130/54
--- NOTE | 2025-05-11 08:15 | W.PN.HOSP.TC ---
Today's Communication/Plan
-
see plan
Assessment / Plan
Assessment / Plan
69-year-old female with a complicated medical history who presented with recurrent near syncope and melena. She was discharged home yesterday 05/05 after conservative treatment for GI bleeding and transfusion of 1 unit PRBCs. She had a
supratherapeutic INR during previous admission which returned to within normal limits on day of discharge. She did not want to pursue further evaluation with endoscopy at that time and so was discharged to home with plan for ongoing blood work to
monitor her hemoglobin levels. However she had a large bowel movement this morning with melena and became very weak and dizzy. So, her brought her back to the emergency department for further evaluation and management. Her complicated
medical history includes recurrent GI bleeding (no clear sources of bleeding identified after workup including capsule endoscopy), Hodgkin's lymphoma (status post radiation 1973), aortic stenosis (status post replacement with pediatric mechanical
valve due to scarring from radiation, on warfarin), mitral stenosis and regurgitation, pulmonary hypertension, HFpEF, breast cancer (2018, bilateral mastectomy, declined chemo and radiation, later treated with tamoxifen), CVA (right MCA stroke 2005,
recurrent 07/15/2022 while off warfarin with subtherapeutic INR), hypertension, and hypothyroidism.
In the ED, she was mildly hypotensive with a blood pressure 118/45, afebrile, and saturating appropriately on room air. Her labs were remarkable for an initial hemoglobin of 7.8 (down from 9.9 yesterday 05/05), INR of 4.9 (was 3.6 yesterday 05/05),
creatinine 1.3 with a BUN of 81. She was given IV fluids and started on IV Protonix and admitted for further evaluation and management.
Gen: remains NAD, AAOx3. Appears chronically ill malnourished, cachectic.
Eyes: EOMI, PERRLA, no scleral icterus.
Neck: supple.
CV: remains RRR, +S1/S2, no m/r/g.
Resp: CTAB anteriorly, no rales, wheezes, or rhonchi.
Skin: No rashes.
Neuro: CN 2-12 intact, non-focal.
Psych: Normal mood and affect.
CXR 05/06/25:
1. Bibasilar linear opacities, unchanged compared to 04/30/2025, but new compared to prior chest CT dated 10/27/2023. Findings may be related to bibasilar pneumonia, aspiration, or subsegmental atelectasis. Radiographic follow-up to resolution is
suggested.
2. No significant pleural effusion or pneumothorax on either side.
EGD 05/09/25: Normal esophagus. Small hiatal hernia. Gastritis no old or fresh blood seen. Duodenum normal. Unable to pass through jejunum using colonoscope. No specimens collected.
Acute blood loss anemia due to acute GI bleeding:
-exacerbated by warfarin use with supratherapeutic INR (coumadin coagulopathy)
-s/p 2U pRBCs
-EGD 05/09/25 with with gastritis but no old or fresh blood
-Colonoscopy 05/10/25 without blood, unremarkable other that a single 5mm diverticulum in terminal ileum
-cont heparin gtt/coumadin bridge (mechanical AV), pt requesting cardiology c/s
-cont PPI
-trend Hb, (9.0 from 10.1 yesterday)
[place]:
-resolved with IVFs
-cont to hold home lasix
-start PO Bicarb for non-AG met acidosis
Other problems:
Essential HTN: Holding home ACEi/Lasix, cont BB
Hypothyroidism: cont Levoxyl
Chronic HFpEF: cont BB, holding home Lasix/ACEi with [place] and hypotension
Moderate protein calorie malnutrition
I had a lengthy discussion with the patient and her at bedside. The patient is concerned that cardiology is not following the patient. I explained that I do not feel that cardiology will do anything differently regarding her heparin
Coumadin bridge for mechanical aortic valve but have placed a cardiology consult at the patient's request. She was also concerned about being started on sodium bicarb. I explained the reasoning for this and explained that she is welcome to refuse
the medication if she would not like to take it.
DNR/heparin gtt
Anticipated Discharge: 24 - 48 hours
Subjective/Interval History
-
Date of Service: May 11, 2025
No new complaints.
Objective Data
-
Labs:
Laboratory Results
05/11/25 05/11/25 05/11/25
01:50 06:08 09:20
WBC 4.6 L
Hgb 9.0 L
Hct 27.7 L
Plt Count 377
PT 19.3 H
INR 1.60
APTT 192.6 H* Pending
Sodium 140
Potassium 4.1
Chloride 116 H
Carbon Dioxide 17 L
BUN 30 H
Creatinine 1.3 H
Glucose 69 L
Calcium 7.9 L
Vital Signs:
Vital Signs
Temp Pulse Resp BP Pulse Ox
97.9 F 82 16 130/54 100
05/11/25 07:57 05/11/25 07:57 05/11/25 07:57 05/11/25 07:57 05/11/25 07:57
I&O
05/10/25 05/11/25 05/12/25
06:59 06:59 06:59
Intake Total 1200 / 1200 2237
Balance 1200 / 1200 2237
--- NOTE | 2025-05-11 08:21 | W.PN.GI.CBS2 ---
Addendum entered and electronically signed by Deidre Wang DO 05/11/25 14:17:
Patient seen and examined independent of G[employer]. I agree with her note with my additions below
Teri is a complex 69-year-old female with history of mechanical aortic valve replacement on warfarin who has had difficulty controlling her INR who is readmitted with melena and anemia. She has had endoscopy and enteroscopy and capsule
endoscopy. I performed a colonoscopy on her yesterday which showed no blood. She did have a diverticulum in the terminal ileum that was not bleeding.
She continues her heparin while her INR becomes therapeutic
She has had no overt bleeding and her hemoglobin is stable from yesterday with a hemoglobin of 9. This is an appropriate response to 1 unit of blood from 8.1
GI will sign off. Please call with any questions
If she has recurrent bleeding consider Meckel scan since she has a diverticulum in the terminal ileum
Follow-up with Dr. Amaral for hemoglobin checks
Original Note:
Today's Communication / Plan
-
Etiology of bleeding unclear--s/p EGD/colon --- noted in setting of INR 7 during last admission
stools now brown and no signs of bleeding overnight
hbg 9 and stable with INR 1.6- current heparin - coumadin transition per medical team
cont regular diet
if recurrent bleeding consider capsule vs meckels scan with TI diverticulum noted per review with Dr. Wang
Pt states she follow with Dr. Amaral for hbg check-- I sent tiger text to update on admissions
will sign off call if any recurrent bleeding or anemia
all questions answered
Assessment / Plan
-
In brief Chanda is a complex 69yo W with h/o CHF, CAD and mechanical AVR on coumadin who is readmitted for melena and anemia. She was recently d/sofy on 05/02/25. She has h/o occult GI bleeding in 2023 for which she had EGD/colon and video
capsule endoscopy x2 that did not reveal a source of GI blood loss. She also endorse an enteroscopy/EGD done at [facility] around that time. She denies nsaid use. She is on coumadin and INR has been supratherapeutic goal of 2.5-3.5 for some time. She
states INR had been stable for over 10yrs but in the last 5 harder to manage. On admission noted with melena and continued anemia with total 2 units PRBC's given.
05/09- SB enteroscopy Dr. Ulloa - Normal esophagus.
- Small hiatal hernia.
- Gastritis no old or fresh blood seen.
- Duodenum normal. Unable to pass through jejunum
using colonoscope.
- No specimens collected.
05/10 Dr. Wang colonoscopy
- The sigmoid colon was significantly tortuous. Advancing the
scope required changing endoscopes. Changed to an EGD scope to get
through safely.
- The exam was otherwise normal throughout the examined colon.
- The terminal ileum contained a single 5 mm diverticulum.
- The exam was otherwise without abnormality on direct and
retroflexion views.
- No blood found throughout the colon or terminal ileum.
Impression
- Melena and anemia
- Supratherapeutic INR
- Mechanical AVR
- CAD
- CHF
- HTN
- Raynaud's
- CVA
- H/o Hodgkin's lymphoma
- H/o breast cancer
Recommendations
Etiology of bleeding unclear--s/p EGD/colon --- noted in setting of INR 7 during last admission
stools now brown and no signs of bleeding overnight
hbg 9 and stable with INR 1.6- current heparin - coumadin transition per medical team
cont regular diet
if recurrent bleeding consider capsule vs meckels scan with TI diverticulum noted per review with Dr. Wang
Pt states she follow with Dr. Amaral for hbg check-- I sent tiger text to update on admissions
will sign off call if any recurrent bleeding or anemia
all questions answered
Will follow with you.
Subjective
Subjective
Date of Service: May 11, 2025
05/10 yellow/brown stool on regular diet
Objective
Data Reviewed
Laboratory Data:
Laboratory Results
05/11/25 06:08
05/11/25 06:08
Laboratory Results
PT 19.3 Sec (11.4-14.6) H 05/11/25 06:08
INR 1.60 05/11/25 06:08
APTT 192.6 Sec (23.4-35.0) H* 05/11/25 01:50
Magnesium 2.3 mg/dl (1.6-2.3) 05/06/25 07:14
Total Bilirubin 0.3 mg/dl (0.2-1.3) 05/06/25 07:14
AST 29 U/L (14-36) 05/06/25 07:14
ALT 15 U/L (0-35) 05/06/25 07:14
Alkaline Phosphatase 77 U/L (38-126) 05/06/25 07:14
Vital Signs and I&O:
Vital Signs
Temp Pulse Resp BP Pulse Ox
97.9 F 82 16 130/54 100
05/11/25 07:57 05/11/25 07:57 05/11/25 07:57 05/11/25 07:57 05/11/25 07:57
I&O
05/10/25 05/11/25 05/12/25
06:59 06:59 06:59
Intake Total 1200 / 1200 2237
Balance 1200 / 1200 2237
Physical Exam
Physical Exam
HEENT: Anicteric and Moist mucous membranes
Cardiology: Normal Sinus Rhythm and Other (click with valve )
Pulmonary: Clear
GI: Soft, Non Distended and Non Tender
Extremities: No Edema
Neuro: Non Focal
[2025-05-11] MEDS: TOPROL XL 50 MG PO (08:39)
[2025-05-11] MEDS: NSS (PRESERVATIVE FREE) 10 ML IV ×2 (08:44→20:03)
[2025-05-11] MEDS: PROTONIX IV 40 MG IV ×2 (08:45→20:04)
[2025-05-11] MEDS: HEPARIN 25000 UNITS/250 ML IV (08:45)
[2025-05-11 09:58] LABS: APTT 112.4 Sec (23.4-35.0)
--- NOTE | 2025-05-11 11:27 | CON.CAR ---
Addendum entered and electronically signed by Mikey Resendez MD 05/11/25 15:18:
I saw and examined the patient.
The Poultry Packer's note was reviewed and I agree with the note.
Comment: GEN: No distress, awake, Ox3
HEENT: supple, anicteric, mmm
LUNGS: CTA, no wheezes/rales
CV: Reg, S1/S2, 10/25 syst LSB, + click
ABD: soft, BS+, NT/ND
EXT:trace edema
NEURO: Gross non-focal
SKIN: No rash
Plan:
69-year-old female well-known to me with complex medical history including mechanical aortic valve replacement from 2006, chronic GI bleeding, stroke, mitral regurgitation with mitral stenosis, non-Hodgkin's lymphoma status post radiation, breast
cancer, hypertension, CAD and chronic heart failure with preserved ejection fraction. She has had multiple emergency room visits and hospitalizations over the past 2 weeks regarding GI bleeding. She was hospitalized 05/02-05/05 then discharged and
rehospitalized 05/06. EGD and colonoscopy were performed revealing some gastritis and a diverticulum but no clear source for her bleeding. Of note her INR has been incredibly labile. Several weeks ago it was 7 and is ranged in the 1.6-4 range over
the past several weeks. She does get melanotic and black stool intermittently at times. We were asked to help manage her INR and her chronic heart failure with preserved ejection fraction. She has received several transfusions over the past
several weeks. she does have a history of stroke while being off anticoagulation.
Currently her hemoglobin is stable at 9.0 with a normal platelet count. Her creatinine is at 1.3. She does admit to some weight gain and feels full in her abdomen. She has been off her Lasix for several days.
Her blood pressure is currently stable. Her INR is at 1.6.
Recommend continue IV heparin and Coumadin. Goal INR is 2.5-3.5. She will need close monitoring of her INR as an outpatient.
We will resume her Lasix 40 mg Friday and 20 mg other days. Hopefully in a.m. we will also restart her lisinopril.
She remains on Toprol and has struggled with fatigue with this medication. She will continue 25 mg p.o. twice daily for now.
We will follow her on telemetry.
It would be reasonable to consider Lovenox bridging with her but we will reassess in a.m. and see where she is with her INR and IV heparin.
Her mechanical aortic valve was stable from an echo in October 2024 with a mean gradient of 10. She also has moderate mitral regurgitation and stenosis with a mean mitral gradient of 8mmHG.
Original Note:
Consultation
Consultation Request
Date/Time Consultation Requested: 05/11/25
Date/Time Consultation Performed: 05/11/25
Requesting Provider: Dr. Morejon
Performing Provider: Dr. Resendez
Reason for Consultation: Chronic warfarin, needs heparin bridge, h/o CVA
Medical History
-
History of Present Illness:
Patient was admitted on 05/06/2025 with recurrent GIB and cardiology is consulted for heparin bridge and complex cardiovascular history including mechanical AVR. Patient has a mechanical AVR from 2006 and has had recurrent GI bleed. Patient had CVA
in 2005 and more recently had CVA in the setting of a subtherapeutic INR at the time of a colonoscopy in 06/2021. Patient previously followed at [facility] cardiology, but now followed locally and our office manages her INRs and INR is 2.5-3.5. Patient
generally takes warfarin 2.5 mg daily. INRs are typically drawn at the hospital and results eventually make their way to cardiology, but occasionally may go to PCP or hematology first as patient is also followed for history of breast cancer and
anemia. Most recently the patient was overdue for INR and we eventually track down her INR from 04/30/2025 and it was 7.04. Patient went to the ER with abdominal pain and her INR was 7.04. Workup in the ER was unremarkable and patient was
discharged home. Patient then had melanotic stools and return to the ER on 05/02/2025 and was admitted until 05/05/2025. INR that admission ranged from 4.93-3.68 on the day of discharge. Patient was discharged to home and then returned on 05/06/2025
and has been admitted since then with lightheadedness, shortness of breath and melanotic stools. Her Hgb was 9.9 when she left the hospital on 05/05/2025 and on return was down to 7.8 on 05/06/2025. Patient has received 2 units PRBCs since
admission. INR has been up and down without evidence of warfarin antagonist being administered and patient denies any increased intake of vitamin K rich food. Cardiology is consulted for h/o CVA as outlined in detail above. Patient is currently
on heparin bridge. The last time she used a Lovenox bridge was about 5 years ago. Patient denies any chest pain, SOB or edema, but her Lasix has been on hold since her last admission from 05/02/2025 until 05/05/2025 due to [place].
PMH:
Recent admission for GIB 05/02/25 until 05/05/25
h/o recurrent GIB
Chronic warfarin OAC managed by [facility] cardiology
h/o CVA
h/o CVA 2005
h/o right MCA stroke with M2 occlusion in setting of subtherapeutic INR while off Coumadin 07/15/21
patient bridged with Lovenox prior to colonoscopy 07/10/21, but no Lovenox bridge post-colonoscopy
Mechanical AVR pediatric size 2006
Mitral regurgitation with mitral stenosis
Tricuspid regurgitation with pulmonary hypertension
h/o Hodgkin's lymphoma treated with radiation to left neck and pelvis 1973
h/o breast CA
2018 treated with B/L mastectomy, patient refused chemotherapy and radiation, but eventually agreeable to Tamoxifen
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
Recurrence of breast cancer 2021 - did not tolerate Ibrance or Ribociclib
Labile HTN
Hypothyroidism
Chronic HFpEF
CAD with 60 to 70% ostial to proximal LM stenosis, 100% [employer]PENTER SHIP proximal RCA with [id number] collaterals by cardiac cath 10/28/2024
Past Medical History
Past Medical History: Other (In HPI)
Past Surgical History: Cardiac ([place] mechanical aortic valve), and Other (Bilateral mastectomy 2018, thyroidectomy, splenectomy)
Social History
Tobacco: Former Smoker
Alcohol: Occasional
Drug: None
Personal:
Living: With Family
Family History
Family History: CAD and Cancer
Allergies / Home Medications
Allergy/AdvReac Type Severity Reaction Status Date / Time
palbociclib (From [facility]) Allergy Tongue Verified 05/02/25 08:07
Swelling
Penicillins Allergy throat Verified 05/02/25 08:07
swelling-
tolertates
amoxicillin
tramadol Allergy throat Verified 05/02/25 08:07
swelling
�Medication �Instructions �Recorded �Confirmed �Type
levothyroxine 88 mcg tablet 88 mcg PO DAILY AT 0700 Thyroid 07/16/21 05/06/25 History
metoprolol succinate 50 mg 50 mg PO BID Blood Pressure 10/24/24 05/06/25 History
tablet,extended release 24 hr
pantoprazole 40 mg tablet,delayed 40 mg PO DAILY #30 tabs 05/05/25 05/06/25 Rx
release (Protonix)
celecoxib 100 mg capsule 100 mg PO BIDPRN PRN pain 05/06/25 05/06/25 History
furosemide 20 mg tablet (Lasix) 20 mg PO SUTUTHSA@0800 Fluid 05/06/25 05/06/25 History
Retention/Swelling
furosemide 40 mg tablet 40 mg PO MOWEFR@0800 Fluid 05/06/25 05/06/25 History
Retention/Swelling
ipratropium bromide 42 mcg (0.06 2 spray intranasal BIDPRN PRN 05/06/25 05/06/25 History
%) nasal spray post-nasal drip
lisinopril 10 mg tablet 10 mg PO DAILY Blood Pressure 05/06/25 05/06/25 History
lorazepam 0.5 mg tablet 0.5 mg PO BIDPRN PRN anxiety 05/06/25 05/06/25 History
warfarin 2.5 mg tablet 2.5 mg PO .6 DAYS A WEEK,OFF 1 05/06/25 05/06/25 History
valve
Review of Systems
-
History Source: Patient
All other systems: Negative unless noted
Physical Exam
Vital Signs
Temp Pulse Resp BP Pulse Ox
97.9 F 82 16 130/54 100
05/11/25 07:57 05/11/25 08:39 05/11/25 07:57 05/11/25 08:39 05/11/25 07:57
GEN: NAD. AAOx3
HEENT: EOMI, MMM
LUNGS: RA. Clear anterolaterally without rales
CV: SR on tele. Reg, S1/S2, 10/25 syst LSB, + click
ABD: soft, BS+, NT, ND
EXT: No clubbing, cyanosis, lesions or edema B/L
NEURO: Gross non-focal
SKIN: No rash
Lab Results
05/11/25 06:08
05/11/25 06:08
Troponin I 0.033 ng/ml 05/07/25 20:22
Xhv-F-Xtamhacawhh Pept 3200 pg/ml 05/06/25 07:14
Impression / Plan
-
PCP: Dr. Haynes
Cardiology: Dr. Aramis Resendez
Oncology: Dr. Amaral
Impression:
Admitted with recurrent GIB 05/06/25
Recent admission for GIB 05/02/25 until 05/05/25
h/o recurrent GIB
Chronic warfarin OAC managed by [facility] cardiology
h/o CVA
h/o CVA 2005
h/o right MCA stroke with M2 occlusion in setting of subtherapeutic INR while off Coumadin 07/15/21
patient bridged with Lovenox prior to colonoscopy 07/10/21, but no Lovenox bridge post-colonoscopy
Mechanical AVR pediatric size 2006
Mitral regurgitation with mitral stenosis
Tricuspid regurgitation with pulmonary hypertension
h/o Hodgkin's lymphoma treated with radiation to left neck and pelvis 1973
h/o breast CA
2018 treated with B/L mastectomy, patient refused chemotherapy and radiation, but eventually agreeable to Tamoxifen
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
Recurrence of breast cancer 2021 - did not tolerate Ibrance or Ribociclib
Labile HTN
Hypothyroidism
Chronic HFpEF
CAD with 60 to 70% ostial to proximal LM stenosis, 100% [employer]P[place] SHIP proximal RCA with [id number] collaterals by cardiac cath 10/28/2024
LHC 10/28/2024: Eccentric 60-70% ostial to proximal Left main, difficult to advance IVUS catheter. iFR positive at 0.76. Elevated filling pressures, normal cardiac output/index, occluded right coronary artery with brisk collater, Nonobstructive plaque
of LAD and circumflex, pulmonary artery pressure 62/26, pulmonary capillary wedge pressure is 22, right atrial pressure is 11, cardiac index is 2.5
Echo 08/31/19: EF 55-60%, grade II diastolic dysfunction, moderate MR, mechanical aortic valve mean gradient 8 mmHg
Echo 07/16/21:�EF 70-75%, mild to mod MS with mean gradient 10 mmHg, [place] AVR mean gradient 13, PAP 43 mmHg
Echo 08/26/2022: Hyperdynamic LV.� EF 70 to 75%.� Mild to moderate MS peak/mean gradient 20/7 mmHg.� Moderate to severe MR.� Well-seated mechanical AVR with peak/mean gradient 11/6 mmHg without regurgitation.� Moderate to severe TR.� Moderate
pulmonary hypertension with PAP 50 to 55 mmHg.
Echo 02/10/2023: EF 60 to 65%.� Moderate mitral stenosis mean gradient 11 with severe MR.� Well-seated mechanical AVR with peak/mean gradient 15/8 mmHg, mild to moderate TR, mild pulmonary hypertension with PAP 45 to 48 mmHg.
Echo 11/19/2023: EF 70-75%, moderate MS with peak/mean gradients 15/8 mmHg, moderate MR, mechanical prosthetic AVR with peak/mean gradients 16/9 mmHg, trace AR, moderate TR, estimated PAP 30-35 mmHg
Echo 10/25/24: EF 55-60%, moderate mitral stenosis with mean gradient of 8 mmHg, mild to moderate MR, mechanical AVR with mean gradient of 10, no AI, mild to moderate TR with PA pressure 40-45
Plan:
- Patient was admitted on 05/06/2025 with recurrent GIB and cardiology is consulted for heparin bridge and complex cardiovascular history including mechanical AVR. Patient has a mechanical AVR from 2006 and has had recurrent GI bleed. Patient had
CVA in 2005 and more recently had CVA in the setting of a subtherapeutic INR at the time of a colonoscopy in 06/2021. Patient previously followed at [facility] cardiology, but now followed locally and our office manages her INRs and INR is 2.5-3.5.
Patient generally takes warfarin 2.5 mg daily. INRs are typically drawn at the hospital and results eventually make their way to cardiology, but occasionally may go to PCP or hematology first as patient is also followed for history of breast cancer
and anemia. Most recently the patient was overdue for INR and we eventually track down her INR from 04/30/2025 and it was 7.04. Patient went to the ER with abdominal pain and her INR was 7.04. Workup in the ER was unremarkable and patient was
discharged home. Patient then had melanotic stools and return to the ER on 05/02/2025 and was admitted until 05/05/2025. INR that admission ranged from 4.93-3.68 on the day of discharge. Patient was discharged to home and then returned on 05/06/2025
and has been admitted since then with lightheadedness, shortness of breath and melanotic stools. Her Hgb was 9.9 when she left the hospital on 05/05/2025 and on return was down to 7.8 on 05/06/2025. Patient has received 2 units PRBCs since
admission. INR has been up and down without evidence of warfarin antagonist being administered and patient denies any increased intake of vitamin K rich food. Cardiology is consulted for h/o CVA as outlined in detail above. Patient is currently
on heparin bridge. The last time she used a Lovenox bridge was about 5 years ago. Patient denies any chest pain, SOB or edema, but her Lasix has been on hold since her last admission from 05/02/2025 until 05/05/2025 due to [place].
-ECG from 05/06/2025 reviewed by me, patient is NSR without acute ST or T wave changes
-INR on 05/10/2025 is 1.36 and following a dose of warfarin 2.5 mg last night the INR is 1.6 on 05/11/2025, all labs reviewed by me. Continue with warfarin 2.5 mg daily.
-INR goal is 2.5-3.5. INRs are generally drawn through the hospital either at the outpatient lab or the outpatient infusion center. INRs are managed by cardiology. Patient has had 3 different home monitors arranged for her over the last 5 years
and she returns each 1 and says that she is unable to perform fingerstick due to history of Raynaud's.
-Heparin bridge reviewed by me, current PTT goal is 73-1 11 and the last PTT was 112. TT communication with nursing to reduce the number of sticks for PTT monitoring now that she is so close to goal.
-The last attempt at a Lovenox bridge as an outpatient was about 5 years ago.
-Patient is asking for dose of Toprol-XL to be reduced to 25 mg BID because she does not like it when her heart rate is in the 70s, she reports feeling unwell. Orders changed by me and will follow HR on telemetry.
-Outpatient dose of lisinopril 10 mg daily remains on hold due to [place] last admission. If Cre is stable following the restart of Lasix that we can consider restarting lisinopril
-Reviewed with patient that I doubt that metoprolol is causing fluctuations in her INR and I suspect that it is mostly dietary although patient denies this.
[2025-05-11 11:29] VITALS: BP 132/58
--- NOTE | 2025-05-11 12:32 | CM ---
Reviewed the chart notes. Patient continues with heparin bridge with warfarin. CM continues to be available to patient/family and is monitoring medical plan for needs at discharge.
Plan: Discharge to home when medically stable. No needs anticipated at this time.
[2025-05-11] MEDS: LASIX 40 MG PO (13:26)
[2025-05-11] MEDS: COUMADIN 2.5 MG PO (13:49)
--- NOTE | 2025-05-11 14:56 | W.PN.UPDATE ---
Update Note
Progress Note Update
Labs reviewed by me and PTT 112 on 05/11/2025 at 0932. Goal is 73-111. Will continue heparin gtt at current rate and recheck PTT in a.m.
Update at 1510: Reviewed with nursing and heparin rate was decreased based on the PTT of 112 from earlier today. Continue at 4.5 and then recheck PTT at 1620 as was previously planned. The goal was to try and reduce phlebotomy sticks for patient
given access issues. Once PTT is therapeutic she can go to once daily.
[2025-05-11 15:56] VITALS: BP 119/53
[2025-05-11 16:51] LABS: APTT 85.2 Sec (23.4-35.0)
[2025-05-11 19:38] VITALS: BP 112/55
[2025-05-11] MEDS: ATIVAN 0.5 MG PO ×2 (20:12→23:22)
[2025-05-11 23:12] VITALS: BP 98/55
[2025-05-11 23:36] LABS: APTT 85.2 Sec (23.4-35.0)
[2025-05-12] VITALS (7 sets, daily range): BP systolic 89–163; BP diastolic 40–83; BMI 16.8
[2025-05-12] MEDS: SYNTHROID 88 MCG PO (05:02)
[2025-05-12 05:58] LABS: INR 1.97; PT 22.9 Sec (11.4-14.6)
[2025-05-12 05:59] LABS: APTT 67.7 Sec (23.4-35.0); Blood Urea Nitrogen 26 mg/dl (7-17); Calcium 8.1 mg/dl (8.4-10.2); Carbon Dioxide 22 mmol/L (22-30); Chloride 110 mmol/L (98-107); Estimated Creatinine Clearance 23 ml/min; Glucose 92 mg/dl (70-99); Potassium 3.6 mmol/L (3.5-5.1); Sodium 139 mmol/L (135-145); eGFR 43.96
[2025-05-12 06:00] LABS: Hematocrit 28.1 % (37.0-47.0); Hemoglobin 9.5 g/dL (12.0-16.0); Mean Corp Hgb Conc. 33.8 g/dL (33.0-37.0); Mean Corpuscular Volume 88.4 fL (81.0-99.0); Platelet Count 405 10^3/uL (130-400); Red Cell Dist. Width 16.8 % (11.5-14.5)
[2025-05-12] MEDS: TOPROL XL 25 MG PO ×2 (08:50→10:33)
[2025-05-12] MEDS: NSS (PRESERVATIVE FREE) 10 ML IV ×2 (08:51→20:37)
[2025-05-12] MEDS: PROTONIX IV 40 MG IV ×2 (08:51→20:37)
--- NOTE | 2025-05-12 08:52 | W.PN.HOSP.TC ---
Today's Communication/Plan
-
see plan
Assessment / Plan
Assessment / Plan
69-year-old female with a complicated medical history who presented with recurrent near syncope and melena. She was discharged home yesterday 05/05 after conservative treatment for GI bleeding and transfusion of 1 unit PRBCs. She had a
supratherapeutic INR during previous admission which returned to within normal limits on day of discharge. She did not want to pursue further evaluation with endoscopy at that time and so was discharged to home with plan for ongoing blood work to
monitor her hemoglobin levels. However she had a large bowel movement this morning with melena and became very weak and dizzy. So, her brought her back to the emergency department for further evaluation and management. Her complicated
medical history includes recurrent GI bleeding (no clear sources of bleeding identified after workup including capsule endoscopy), Hodgkin's lymphoma (status post radiation 1973), aortic stenosis (status post replacement with pediatric mechanical
valve due to scarring from radiation, on warfarin), mitral stenosis and regurgitation, pulmonary hypertension, HFpEF, breast cancer (2018, bilateral mastectomy, declined chemo and radiation, later treated with tamoxifen), CVA (right MCA stroke 2005,
recurrent 07/15/2022 while off warfarin with subtherapeutic INR), hypertension, and hypothyroidism.
In the ED, she was mildly hypotensive with a blood pressure 118/45, afebrile, and saturating appropriately on room air. Her labs were remarkable for an initial hemoglobin of 7.8 (down from 9.9 yesterday 05/05), INR of 4.9 (was 3.6 yesterday 05/05),
creatinine 1.3 with a BUN of 81. She was given IV fluids and started on IV Protonix and admitted for further evaluation and management.
Gen: continues to remain NAD, AAOx3. Appears chronically ill malnourished, cachectic.
Eyes: EOMI, PERRLA, no scleral icterus.
Neck: supple.
CV: tachy, reg rhythm, +S1/S2, no m/r/g.
Resp: CTAB, no rales, wheezes, or rhonchi.
Skin: No rashes.
Neuro: CN 2-12 intact, non-focal.
Psych: Normal mood and affect.
CXR 05/06/25:
1. Bibasilar linear opacities, unchanged compared to 04/30/2025, but new compared to prior chest CT dated 10/27/2023. Findings may be related to bibasilar pneumonia, aspiration, or subsegmental atelectasis. Radiographic follow-up to resolution is
suggested.
2. No significant pleural effusion or pneumothorax on either side.
EGD 05/09/25: Normal esophagus. Small hiatal hernia. Gastritis no old or fresh blood seen. Duodenum normal. Unable to pass through jejunum using colonoscope. No specimens collected.
Acute blood loss anemia due to acute GI bleeding:
-exacerbated by warfarin use with supratherapeutic INR (coumadin coagulopathy)
-s/p 2U pRBCs
-EGD 05/09/25 with with gastritis but no old or fresh blood
-Colonoscopy 05/10/25 without blood, unremarkable other that a single 5mm diverticulum in terminal ileum
-cont heparin gtt/coumadin bridge (mechanical AVR) until later today as per discussion with cardiology (INR goal 2-3 for mechanical AVR)
-cont PPI
-trend Hb, (9.5 from 9.0 yesterday)
[place]:
-resolved with IVFs
-lasix had been held, now resumed (but pt refused today)
-non-AG met acidosis has resolved
Other problems:
Essential HTN: Holding home ACEi. cont Lasix, cont BB (increasing dose for tachy)
Hypothyroidism: cont Levoxyl
Chronic HFpEF: cont BB/Lasix. cont to hold ACEi with [place] and hypotension.
Moderate protein calorie malnutrition
Discussed with RN and cardiology at length.
DNR/heparin gtt
Total time spent on today's encounter was 50 minutes which included time spent in counseling the patient/family regarding diagnosis and treatment plan as listed above, goals of care, and symptom management. Case was discussed with nursing staff,
specialists, and care coordinators/case management. All labs and imaging personally reviewed by me. Remainder the time spent in detailed review of previous records, lab data, imaging, and other medical provider documentation.
Anticipated Discharge: Within 24 hours
Subjective/Interval History
-
Date of Service: May 12, 2025
Denies CP/SOB.
Objective Data
-
Labs:
Laboratory Results
05/11/25 05/12/25 05/12/25
23:14 05:30 13:00
WBC 4.6 L
Hgb 9.5 L
Hct 28.1 L
Plt Count 405 H
PT 22.9 H
INR 1.97
APTT 85.2 H 67.7 H Pending
Sodium 139
Potassium 3.6
Chloride 110 H
Carbon Dioxide 22
BUN 26 H
Creatinine 1.3 H
Glucose 92
Calcium 8.1 L
Vital Signs:
Vital Signs
Temp Pulse Resp BP Pulse Ox
98.1 F 71 16 132/71 99
05/12/25 03:17 05/12/25 03:17 05/12/25 03:17 05/12/25 03:17 05/12/25 03:17
I&O
05/11/25 05/12/25 05/13/25
06:59 06:59 06:59
Intake Total 2237 / 2237 960 / 960
Balance 8 / 2237 960 / 960
--- NOTE | 2025-05-12 09:45 | W.PN.CARDCBS ---
Addendum entered and electronically signed by Mikey Resendez MD 05/12/25 14:19:
I saw and examined the patient.
The [employer] Florist's note was reviewed and I agree with the note.
Comment:
GEN: No distress, awake, Ox3
HEENT: supple, anicteric, mmm
LUNGS: CTA, no wheezes/rales
CV: Reg, S1/S2, 1/6 syst LSB, +click
ABD: soft, BS+, NT/ND
EXT: No edema
NEURO: Gross non-focal
SKIN: No rash
Plan:
INR at 1.96. Will repeat this afternoon. With her history of stroke I would attempt to keep her INR at 2.5-3.0. Would continue IV heparin bridging for now. Hopeful for discharge in a.m.
Increase metoprolol back to 50 mg p.o. twice daily with tachycardia. Will add lisinopril 5 mg daily.
Hold Lasix today but hopefully resume in a.m. Creatinine stable at 1.3.
Original Note:
Today's Communication / Plan
-
increase toprol to 50mg BID. consider adding back lower dose lisinopril
pt refused lasix today
likely stop IV heparin this afternoon
continue coumadin
Impression / Plan
-
PCP: Dr. Haynes
Cardiology: Dr. Aramis Resendez
Oncology: Dr. Amaral
Impression:
Admitted with recurrent GIB 05/06/25
Recent admission for GIB 05/02/25 until 05/05/25
h/o recurrent GIB
Chronic warfarin OAC managed by [facility] cardiology
h/o CVA
h/o CVA 2005
h/o right MCA stroke with M2 occlusion in setting of subtherapeutic INR while off Coumadin 07/15/21
patient bridged with Lovenox prior to colonoscopy 07/10/21, but no Lovenox bridge post-colonoscopy
Mechanical AVR pediatric size 2006
Mitral regurgitation with mitral stenosis
Tricuspid regurgitation with pulmonary hypertension
h/o Hodgkin's lymphoma treated with radiation to left neck and pelvis 1973
h/o breast CA
2018 treated with B/L mastectomy, patient refused chemotherapy and radiation, but eventually agreeable to Tamoxifen
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
Recurrence of breast cancer 2021 - did not tolerate Ibrance or Ribociclib
Labile HTN
Hypothyroidism
Chronic HFpEF
CAD with 60 to 70% ostial to proximal LM stenosis, 100% [employer] proximal RCA with [id number] collaterals by cardiac cath 10/28/2024
LHC 10/28/2024: Eccentric 60-70% ostial to proximal Left main, difficult to advance IVUS catheter. iFR positive at 0.76. Elevated filling pressures, normal cardiac output/index, occluded right coronary artery with brisk collater, Nonobstructive plaque
of LAD and circumflex, pulmonary artery pressure 62/26, pulmonary capillary wedge pressure is 22, right atrial pressure is 11, cardiac index is 2.5
Echo 08/31/19: EF 55-60%, grade II diastolic dysfunction, moderate MR, mechanical aortic valve mean gradient 8 mmHg
Echo 07/16/21:�EF 70-75%, mild to mod MS with mean gradient 10 mmHg, [place] AVR mean gradient 13, PAP 43 mmHg
Echo 08/26/2022: Hyperdynamic LV.� EF 70 to 75%.� Mild to moderate MS peak/mean gradient 20/7 mmHg.� Moderate to severe MR.� Well-seated mechanical AVR with peak/mean gradient 11/6 mmHg without regurgitation.� Moderate to severe TR.� Moderate
pulmonary hypertension with PAP 50 to 55 mmHg.
Echo 02/10/2023: EF 60 to 65%.� Moderate mitral stenosis mean gradient 11 with severe MR.� Well-seated mechanical AVR with peak/mean gradient 15/8 mmHg, mild to moderate TR, mild pulmonary hypertension with PAP 45 to 48 mmHg.
Echo 11/19/2023: EF 70-75%, moderate MS with peak/mean gradients 15/8 mmHg, moderate MR, mechanical prosthetic AVR with peak/mean gradients 16/9 mmHg, trace AR, moderate TR, estimated PAP 30-35 mmHg
Echo 10/25/24: EF 55-60%, moderate mitral stenosis with mean gradient of 8 mmHg, mild to moderate MR, mechanical AVR with mean gradient of 10, no AI, mild to moderate TR with PA pressure 40-45
Plan:
- Heart rates this morning are elevated with reduction in Toprol dose on 05/11. We discussed this and patient is agreeable to increase back to 50 mg twice daily.
- She reports good urine output yesterday with 40 mg p.o. Lasix and refused her 20 mg of po Lasix this morning. Weight down if accurate and creatinine stable at 1.3
- INR 1.97 this morning, hgb stable at 9.5. Can likely stop IV heparin this afternoon. Goal INR historically has been 2.5-3.5, however given mechanical AVR, could consider for goal of 2-3 to hopefully reduce recurrences of GI bleeding.
Complicating matters, she does have history of stroke in 2005 and most recently in 2020 in the setting of a subtherapeutic INR at time of a colonoscopy. On Coumadin 2.5 mg daily managed by [facility] Coumadin clinic
- Patient requesting biweekly hemoglobin and INRs as an outpatient with results to both us and Dr. Amaral, her ophthalmic medical technician. Will discuss with Coumadin clinic
- BPs also elevated. would consider adding back lisinopril at lower dose perhaps 5mg daily
- Discussed with nursing
- Discussed with hospitalist
Progress Note - Fitness Specialist
Subjective
Date of Service: May 12, 2025
denies CP, SOB.
Objective
Labs:
05/12/25 05:30
05/12/25 05:30
Labs
Hgb 9.5 g/dL (12.0-16.0) L 05/12/25 05:30
Hct 28.1 % (37.0-47.0) L 05/12/25 05:30
Plt Count 405 10^3/uL (130-400) H 05/12/25 05:30
PT 22.9 Sec (11.4-14.6) H 05/12/25 05:30
INR 1.97 05/12/25 05:30
APTT 67.7 Sec (23.4-35.0) H 05/12/25 05:30
Sodium 139 mmol/L (135-145) 05/12/25 05:30
Potassium 3.6 mmol/L (3.5-5.1) 05/12/25 05:30
BUN 26 mg/dl (7-17) H 05/12/25 05:30
Creatinine 1.3 mg/dL (0.6-1.0) H 05/12/25 05:30
Glucose 92 mg/dl (70-99) 05/12/25 05:30
Vital Signs and I&O:
Vital Signs
Temp Pulse Resp BP Pulse Ox
98.1 F 108 20 163/83 97
05/12/25 07:00 05/12/25 08:50 05/12/25 07:00 05/12/25 08:50 05/12/25 07:00
Vital Signs
Temp Pulse Resp BP Pulse Ox
98.1 F 108 20 163/83 97
05/12/25 07:00 05/12/25 08:50 05/12/25 07:00 05/12/25 08:50 05/12/25 07:00
Intake & Output
05/10/25 05/11/25 05/12/25 05/13/25
07:59 07:59 07:59 07:59
Intake Total 1200 / 1200 2238 / 2238 960 / 960
Balance 1200 / 1200 2238 / 2238 960 / 960
Physical Exam
Physical Exam
GEN: No distress, awake, alert, oriented x3
HEENT: supple, anicteric, mmm, eomi
LUNGS: CTA B/L, no wheezes/rales
CV: Reg, S1/S2, 2/6 murmur
ABD: soft, BS+, NT/ND
EXT: No cyanosis, clubbing, edema
NEURO: Gross non-focal
SKIN: Warm, pink, dry. No rash. Dressing to back
[2025-05-12] MEDS: ATIVAN 0.5 MG PO ×2 (10:44→20:38)
[2025-05-12] MEDS: COUMADIN 2.5 MG PO (12:49)
[2025-05-12] MEDS: ZESTRIL 5 MG PO (12:50)
[2025-05-12 13:40] LABS: INR 2.20; PT 24.9 Sec (11.4-14.6)
[2025-05-12 13:42] LABS: APTT 83.7 Sec (23.4-35.0)
--- NOTE | 2025-05-12 14:43 | CM ---
Reviewed the chart notes and spoke with the patient at the bedside. IMM reviewed. CM continues to be available to patient/family and is monitoring medical plan for needs at discharge.
Plan: Discharge to home when medically stable. No needs anticipated at this time.
[2025-05-12 20:27] LABS: APTT 89.8 Sec (23.4-35.0)
[2025-05-12] MEDS: TOPROL XL 50 MG PO (20:38)
[2025-05-12] MEDS: HEPARIN 25000 UNITS/250 ML IV (20:49)
[2025-05-13 00:20] VITALS: BP 96/36
[2025-05-13 03:10] VITALS: BP 96/46
[2025-05-13] MEDS: SYNTHROID 88 MCG PO (05:10)
[2025-05-13 05:15] VITALS: BMI 16.8
[2025-05-13 07:50] VITALS: BP 113/51
--- NOTE | 2025-05-13 08:17 | W.PN.HOSP.TC ---
Addendum entered and electronically signed by Rangel Morejon MD 05/13/25 12:20:
Med rec for d/c done in conjunction with GI/cards. Of note, GI recommends protonix 40mg ONCE DAILY.
Addendum entered and electronically signed by Rangel Morejon MD 05/13/25 12:19:
Total time spent on d/c = 40 min. This included today's physical exam, progress note, review of laboratory and diagnostic data, preparation of discharge documents and prescriptions, and discussions about the pt's hospital course and discharge plan
with the patient and other medical file clerk involved in the patient's care.
Original Note:
Today's Communication/Plan
-
see plan
Assessment / Plan
Assessment / Plan
69-year-old female with a complicated medical history who presented with recurrent near syncope and melena. She was discharged home yesterday 05/05 after conservative treatment for GI bleeding and transfusion of 1 unit PRBCs. She had a
supratherapeutic INR during previous admission which returned to within normal limits on day of discharge. She did not want to pursue further evaluation with endoscopy at that time and so was discharged to home with plan for ongoing blood work to
monitor her hemoglobin levels. However she had a large bowel movement this morning with melena and became very weak and dizzy. So, her brought her back to the emergency department for further evaluation and management. Her complicated
medical history includes recurrent GI bleeding (no clear sources of bleeding identified after workup including capsule endoscopy), Hodgkin's lymphoma (status post radiation 1973), aortic stenosis (status post replacement with pediatric mechanical
valve due to scarring from radiation, on warfarin), mitral stenosis and regurgitation, pulmonary hypertension, HFpEF, breast cancer (2018, bilateral mastectomy, declined chemo and radiation, later treated with tamoxifen), CVA (right MCA stroke 2005,
recurrent 07/15/2022 while off warfarin with subtherapeutic INR), hypertension, and hypothyroidism.
In the ED, she was mildly hypotensive with a blood pressure 118/45, afebrile, and saturating appropriately on room air. Her labs were remarkable for an initial hemoglobin of 7.8 (down from 9.9 yesterday 05/05), INR of 4.9 (was 3.6 yesterday 05/05),
creatinine 1.3 with a BUN of 81. She was given IV fluids and started on IV Protonix and admitted for further evaluation and management.
Gen: continues to remain NAD, AAOx3. Appears chronically ill malnourished, cachectic.
Eyes: EOMI, PERRLA, no scleral icterus.
Neck: supple.
CV: RRR, +S1/S2, no m/r/g.
Resp: CTAB anteriorly, no rales, wheezes, or rhonchi.
Abd: +BS/soft/NT to light palpation/ND
Skin: No rashes.
Neuro: CN 2-12 intact, non-focal.
Psych: Normal mood and affect.
CXR 05/06/25:
1. Bibasilar linear opacities, unchanged compared to 04/30/2025, but new compared to prior chest CT dated 10/27/2023. Findings may be related to bibasilar pneumonia, aspiration, or subsegmental atelectasis. Radiographic follow-up to resolution is
suggested.
2. No significant pleural effusion or pneumothorax on either side.
EGD 05/09/25: Normal esophagus. Small hiatal hernia. Gastritis no old or fresh blood seen. Duodenum normal. Unable to pass through jejunum using colonoscope. No specimens collected.
Acute blood loss anemia due to acute GI bleeding:
-exacerbated by warfarin use with supratherapeutic INR (coumadin coagulopathy)
-s/p 2U pRBCs
-EGD 05/09/25 with with gastritis but no old or fresh blood
-Colonoscopy 05/10/25 without blood, unremarkable other that a single 5mm diverticulum in terminal ileum
-INR now 3.24, stop heparin gtt, cont coumadin (pt states that even with mechanical AVR she targets her INR 2.5-3.5)
-cont PPI
-trend Hb, (9.7 from 9.5 yesterday)
[place]:
-resolved with IVFs
-lasix had been held, now resumed (but pt refused 05/12/25)
-non-AG met acidosis has resolved
Other problems:
Essential HTN: Home ACEi was on hold, now restart, cont Lasix (but pt refused 05/12/25), cont BB (increasing dose for tachy)
Hypothyroidism: cont Levoxyl
Chronic HFpEF: cont BB/Lasix (but pt refused 05/12/25). ACEi restarted.
Moderate protein calorie malnutrition
Discussed with cardiology
DNR/coumadin
Dispo: Likely d/c after seen by cardiology.
Anticipated Discharge: Today
Subjective/Interval History
-
Date of Service: May 13, 2025
No new complaints. Asking to be discharged.
Objective Data
-
Labs:
Laboratory Results
05/12/25 05/13/25
20:08 06:00
WBC Pending
Hgb Pending
Hct Pending
Plt Count Pending
PT Pending
INR Pending
APTT 89.8 H Pending
Vital Signs:
Vital Signs
Temp Pulse Resp BP Pulse Ox
97.7 F 82 16 113/51 99
05/13/25 07:50 05/13/25 07:50 05/13/25 07:50 05/13/25 07:50 05/13/25 07:50
I&O
05/12/25 05/13/25 05/14/25
06:59 06:59 06:59
Intake Total 960 / 960 900 / 900
Balance 960 / 960 900 / 900
[2025-05-13 08:41] LABS: Hematocrit 29.1 % (37.0-47.0); Hemoglobin 9.7 g/dL (12.0-16.0); Mean Corp Hgb Conc. 33.3 g/dL (33.0-37.0); Mean Corpuscular Volume 88.7 fL (81.0-99.0); Platelet Count 408 10^3/uL (130-400); Red Cell Dist. Width 16.8 % (11.5-14.5)
[2025-05-13 08:46] LABS: INR 3.24; PT 32.9 Sec (11.4-14.6)
[2025-05-13 08:49] LABS: APTT 120.9 Sec (23.4-35.0)
[2025-05-13] MEDS: NSS (PRESERVATIVE FREE) 10 ML IV (09:35)
[2025-05-13] MEDS: PROTONIX IV 40 MG IV (09:35)
[2025-05-13 11:47] VITALS: BP 100/48
[2025-05-13] MEDS: ZESTRIL PO (12:34)
[2025-05-13] MEDS: TOPROL XL 50 MG PO (12:35)
[2025-05-13] MEDS: LASIX 40 MG PO (12:35)
[2025-05-13] MEDS: COUMADIN 2.5 MG PO (12:38)
--- NOTE | 2025-05-13 12:49 | W.PN.CARDCBS ---
Addendum entered and electronically signed by Mikey Resendez MD 05/13/25 13:18:
I saw and examined the patient.
The [employer] Specialist's note was reviewed and I agree with the note.
Comment:
GEN: No distress, awake, Ox3
HEENT: supple, anicteric, mmm
LUNGS: CTA, no wheezes/rales
CV: Reg, S1/S2, 1/6 syst LSB, + click
ABD: soft, BS+, NT/ND
EXT: No edema
NEURO: Gross non-focal
SKIN: No rash
PLan:
Hg 9.7 and stable. PLts 408
INR 3.24
Goal INR 2.5-3.0 if possible. Coumadin 2.5mg daily
Hold Lisinopril on D/C
Cont Lasix 40mg MWF, 20mg other days.
Cont Toprol 50mg po bid.
Original Note:
Today's Communication / Plan
-
po lasix 40mg MWF and 20 all other days
toprol 50mg BID
coumadin 2.5mg daily, goal INR 2.5-3
OP cardiac follow up arranged
Impression / Plan
-
PCP: Dr. Haynes
Cardiology: Dr. Aramis Resendez
Oncology: Dr. Amaral
Impression:
Admitted with recurrent GIB 05/06/25
Recent admission for GIB 05/02/25 until 05/05/25
h/o recurrent GIB
Chronic warfarin OAC managed by [facility] cardiology
h/o CVA
h/o CVA 2005
h/o right MCA stroke with M2 occlusion in setting of subtherapeutic INR while off Coumadin 07/15/21
patient bridged with Lovenox prior to colonoscopy 07/10/21, but no Lovenox bridge post-colonoscopy
Mechanical AVR pediatric size 2006
Mitral regurgitation with mitral stenosis
Tricuspid regurgitation with pulmonary hypertension
h/o Hodgkin's lymphoma treated with radiation to left neck and pelvis 1973
h/o breast CA
2018 treated with B/L mastectomy, patient refused chemotherapy and radiation, but eventually agreeable to Tamoxifen
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
Recurrence of breast cancer 2021 - did not tolerate Ibrance or Ribociclib
Labile HTN
Hypothyroidism
Chronic HFpEF
CAD with 60 to 70% ostial to proximal LM stenosis, 100% [employer] proximal RCA with [id number] collaterals by cardiac cath 10/28/2024
LHC 10/28/2024: Eccentric 60-70% ostial to proximal Left main, difficult to advance IVUS catheter. iFR positive at 0.76. Elevated filling pressures, normal cardiac output/index, occluded right coronary artery with brisk collater, Nonobstructive plaque
of LAD and circumflex, pulmonary artery pressure 62/26, pulmonary capillary wedge pressure is 22, right atrial pressure is 11, cardiac index is 2.5
Echo 08/31/19: EF 55-60%, grade II diastolic dysfunction, moderate MR, mechanical aortic valve mean gradient 8 mmHg
Echo 07/16/21:�EF 70-75%, mild to mod MS with mean gradient 10 mmHg, [place] AVR mean gradient 13, PAP 43 mmHg
Echo 08/26/2022: Hyperdynamic LV.� EF 70 to 75%.� Mild to moderate MS peak/mean gradient 20/7 mmHg.� Moderate to severe MR.� Well-seated mechanical AVR with peak/mean gradient 11/6 mmHg without regurgitation.� Moderate to severe TR.� Moderate
pulmonary hypertension with PAP 50 to 55 mmHg.
Echo 02/10/2023: EF 60 to 65%.� Moderate mitral stenosis mean gradient 11 with severe MR.� Well-seated mechanical AVR with peak/mean gradient 15/8 mmHg, mild to moderate TR, mild pulmonary hypertension with PAP 45 to 48 mmHg.
Echo 11/19/2023: EF 70-75%, moderate MS with peak/mean gradients 15/8 mmHg, moderate MR, mechanical prosthetic AVR with peak/mean gradients 16/9 mmHg, trace AR, moderate TR, estimated PAP 30-35 mmHg
Echo 10/25/24: EF 55-60%, moderate mitral stenosis with mean gradient of 8 mmHg, mild to moderate MR, mechanical AVR with mean gradient of 10, no AI, mild to moderate TR with PA pressure 40-45
Plan:
- Heart rate trends overall improved with increase in Toprol to 50 mg twice daily
- Blood pressures were low overnight, so we will stop lisinopril and have patient follow blood pressure trends at home. May consider resuming as an outpatient
- Hemoglobin stable at 9.7 and INR therapeutic at 3.24. Will attempt to keep INR between 2.5 and 3 and attempt to prevent recurrent bleeding. Of note, she also has history of stroke with subtherapeutic INR. Continue Coumadin 2.5 mg daily managed
by [facility] Coumadin clinic. They have sent prescription for outpatient hemoglobin/INR checks with results to both us and Dr. Amaral.
- OP cardiac follow up arranged
- for DC today
- Discussed with nursing
- Discussed with hospitalist via TT
Progress Note - Move Coordinator
Subjective
Date of Service: May 13, 2025
eager for DC.
Objective
Labs:
05/13/25 08:20
05/12/25 05:30
Labs
Hgb 9.7 g/dL (12.0-16.0) L 05/13/25 08:20
Hct 29.1 % (37.0-47.0) L 05/13/25 08:20
Plt Count 408 10^3/uL (130-400) H 05/13/25 08:20
PT 32.9 Sec (11.4-14.6) H 05/13/25 08:20
INR 3.24 05/13/25 08:20
APTT 120.9 Sec (23.4-35.0) H 05/13/25 08:20
Sodium 139 mmol/L (135-145) 05/12/25 05:30
Potassium 3.6 mmol/L (3.5-5.1) 05/12/25 05:30
BUN 26 mg/dl (7-17) H 05/12/25 05:30
Creatinine 1.3 mg/dL (0.6-1.0) H 05/12/25 05:30
Glucose 92 mg/dl (70-99) 05/12/25 05:30
Vital Signs and I&O:
Vital Signs
Temp Pulse Resp BP Pulse Ox
97.9 F 93 18 100/48 96
05/13/25 11:47 05/13/25 11:47 05/13/25 11:47 05/13/25 11:47 05/13/25 11:47
Vital Signs
Temp Pulse Resp BP Pulse Ox
97.9 F 93 18 100/48 96
05/13/25 11:47 05/13/25 11:47 05/13/25 11:47 05/13/25 11:47 05/13/25 11:47
Intake & Output
05/11/25 05/12/25 05/13/25 05/14/25
07:59 07:59 07:59 07:59
Intake Total 2237 / 8 960 / 960 900 / 900
Balance 2238 / 2238 960 / 960 900 / 900
Physical Exam
Physical Exam
GEN: No distress, awake, alert, oriented x3
HEENT: supple, anicteric, mmm, eomi
LUNGS: CTA B/L, no wheezes/rales
CV: Reg, S1/S2, 2/6 murmur
ABD: soft, BS+, NT/ND
EXT: No cyanosis, clubbing, edema
NEURO: Gross non-focal
SKIN: Warm, pink, dry. No rash.
--- NOTE | 2025-05-13 12:52 | PTCARENOTE ---
Patient ambulating in room with a steady gait. Patient is eager to go home. Patient has no c/o pain or SOB. Spouse at bedside. Metoprolol and Lasix given before discharge, Lisinopril held per physician. Patient verbalized understanding that she is
not to take lisinopril.
--- NOTE | 2025-05-13 14:18 | W.DCSUMMARY ---
Discharge Summary
Discharge Data
Date of Admission: 05/06/25
Date of Discharge: 05/13/25
-
Pending Results: No
Hospital Course
Primary diagnoses:
Acute blood loss anemia due to acute GI bleeding
Acute kidney injury
Secondary diagnoses:
None anion gap metabolic acidosis
Essential hypertension
Hypothyroidism
Chronic heart failure preserved ejection fraction
Moderate protein calorie malnutrition
Consultants:
Cardiology
Gastroenterology
Imaging:
CXR:
1. Bibasilar linear opacities, unchanged compared to 04/30/2025, but new compared to prior chest CT dated 10/27/2023. Findings may be related to bibasilar pneumonia, aspiration, or subsegmental atelectasis. Radiographic follow-up to resolution is
suggested.
2. No significant pleural effusion or pneumothorax on either side.
69-year-old female who presented with chief complaints of GI bleeding and symptomatic anemia requiring blood transfusions as outlined in the H&P done on admission. Hospital course by problem list:
EGD 05/09/25: Normal esophagus. Small hiatal hernia. Gastritis no old or fresh blood seen. Duodenum normal. Unable to pass through jejunum using colonoscope. No specimens collected.
Colonoscopy : Tortuous colon. Changed to an EGD scope to get through safely. Ileal diverticulum. The examination was otherwise normal on direct and retroflexion views. No blood found throughout the colon or terminal ileum. No specimens
collected. The patient's hemoglobin was 7.8 on admission. She received 2 units of packed red blood cells while hospitalized. At the time of discharge her hemoglobin was stable at 9.7. Her Coumadin was held. Once her INR was less than 2.0 she
was bridged with a heparin drip. She had EGD and colonoscopy as above. No findings of acute bleeding or source of bleeding. After her EGD and colonoscopy she was placed back on her heparin Coumadin bridge at the time of discharge her INR was
3.24. She was discharged in medically stable condition.
[place]: This resolved with IV fluids. Her Lasix and her KRIS inhibitor were held. For discharge her Lasix was restarted.
Discharge Plan
-
Patient Disposition: Home (Routine Discharge)
Discharge Diagnosis/Procedures: Acute blood loss anemia due to acute GI bleeding, acute kidney injury
Condition: Good
Diet: Regular and Other diet
Additional Diets: limit fluid intact as prior to admission and as per your cardiology
Activity: As tolerated
Driving Restrictions: As prior to admission
Blood Work: semiweekly H/H, INR as directed by your events associate/economic research assistant
Specialty Instructions: Weigh Daily- Call MD for wt gain/loss 3 lbs overnight/5 lbs in 1 week
Referrals:
Leoncio Amaral DO [Active, Hematology / Oncology]
Referral Note: reviewed with Dr. Amaral for continued follow up on OP hemoglobin checks
Gaye Ho PA-C [Specified Professional Personl, Cardiology] - 06/17/25 11:00 am
Referral Note: You have a cardiology follow-up appointment at the [place] office. Please call with questions
Melanie Haynes MD [Family Provider, Internal Medicine] - in less than 1 week
Deidre Wang DO [Active, Gastroenterology]
Referral Note: return to ER or call GI with any recurrent GI bleeding. Would consider capsule endoscopy next
Prescriptions:
Continued
levothyroxine 88 MCG tablet
88 mcg PO DAILY AT 0700
Patient Comments:
10/24/24--MUST BE BRAND NAME SYNTHROID Pt advised to have family/spouse bring in her Synthroid from home.
metoprolol succinate 50 mg tablet extended release 24 hr
50 mg PO BID
pantoprazole [Protonix] 40 mg tablet,delayed release (DR/EC)
40 mg PO DAILY Qty: 30 0RF
furosemide 40 mg tablet
40 mg PO MOWEFR@0800
warfarin 2.5 mg Tablet
2.5 mg PO .6 DAYS A WEEK,OFF 1
lorazepam 0.5 mg tablet
0.5 mg PO BIDPRN PRN (Reason: anxiety)
furosemide [Lasix] 20 mg Tablet
20 mg PO SUTUTHSA@0800
ipratropium bromide 42 mcg (0.06 %) spray,non-aerosol
2 spray INTRANASAL BIDPRN PRN (Reason: post-nasal drip)
Discontinued
lisinopril 10 mg tablet
10 mg PO DAILY
celecoxib 100 mg capsule
100 mg PO BIDPRN PRN (Reason: pain)
Discharge Orders:
Discharge Patient (As Directed); Ordered 05/13/25
Ordered By: Rangel Morejon
Discharge Date and Time
Discharge Date/Time: 05/13/25 13:15
Print Language: FRENCH
== END 2025-05-13 13:15 | disposition home or self-care (01) | DRG 378 ==
LOC: 2 NORTH 09:37
PROVIDERS: Internal Medicine; Nurse Practitioner Family; Nurse Practitioner Gerontology; Physician Assistant; Physician Assistant Medical; ADMITTING PHYSICIAN Internal Medicine; ATTENDING PHYSICIAN Internal Medicine; CONSULT PHYSICIAN Internal Medicine Cardiovascular Disease; CONSULT PHYSICIAN Internal Medicine Gastroenterology; EMERGENCY PHYSICIAN Emergency Medicine; FAMILY PHYSICIAN Emergency Medicine
PROC: 30233N1 Transfusion of Nonautologous Red Blood Cells into Peripheral Vein, Percutaneous Approach (ICD-10-PCS; 2025-05-06)
PROC: 0DJ08ZZ Inspection of Upper Intestinal Tract, Via Natural or Artificial Opening Endoscopic (ICD-10-PCS; 2025-05-09)
PROC: 0DJD8ZZ Inspection of Lower Intestinal Tract, Via Natural or Artificial Opening Endoscopic (ICD-10-PCS; 2025-05-10)
DX: K29.71 Gastritis, unspecified, with bleeding (principal); D62 Acute posthemorrhagic anemia; I50.32 Chronic diastolic (congestive) heart failure; N17.9 Acute kidney failure, unspecified; E44.0 Moderate protein-calorie malnutrition; Z68.1 Body mass index [BMI] 19.9 or less, adult; D68.32 Hemorrhagic disorder due to extrinsic circulating anticoagulants; E87.20 Acidosis, unspecified; I73.00 Raynaud's syndrome without gangrene; I25.10 Atherosclerotic heart disease of native coronary artery without angina pectoris; I27.20 Pulmonary hypertension, unspecified; K44.9 Diaphragmatic hernia without obstruction or gangrene; K57.10 Diverticulosis of small intestine without perforation or abscess without bleeding; I11.0 Hypertensive heart disease with heart failure; E88.09 Other disorders of plasma-protein metabolism, not elsewhere classified; I07.1 Rheumatic tricuspid insufficiency; K64.8 Other hemorrhoids; E11.43 Type 2 diabetes mellitus with diabetic autonomic (poly)neuropathy; I05.2 Rheumatic mitral stenosis with insufficiency; I95.9 Hypotension, unspecified; E89.0 Postprocedural hypothyroidism; K21.9 Gastro-esophageal reflux disease without esophagitis; Z66 Do not resuscitate; Z95.2 Presence of prosthetic heart valve; Z90.81 Acquired absence of spleen; Z79.01 Long term (current) use of anticoagulants; Z85.3 Personal history of malignant neoplasm of breast; Z85.71 Personal history of Hodgkin lymphoma; Z86.73 Personal history of transient ischemic attack (TIA), and cerebral infarction without residual deficits; Z87.891 Personal history of nicotine dependence; Z90.13 Acquired absence of bilateral breasts and nipples; I25.2 Old myocardial infarction; Z88.5 Allergy status to narcotic agent; Z88.0 Allergy status to penicillin; Z88.8 Allergy status to other drugs, medicaments and biological substances; Z79.890 Hormone replacement therapy; Z92.3 Personal history of irradiation
CPT/HCPCS: 36430; 71046; 80048; 80053; 82607; 82746; 83735; 83880; 84484; 85014; 85018; 85025; 85027; 85610; 85730; 86850; 86900; 86901; 86920; 93005; 96361; 96374; 99285; P9016

== ENCOUNTER → 2025-05-16 08:17 | Outpatient (REF) | payer OTHER, SELFPAY ==
[2025-05-16 10:23] LABS: Hematocrit 32.9 % (37.0-47.0); Hemoglobin 10.6 g/dL (12.0-16.0)
[2025-05-16 10:39] LABS: INR 4.10; PT 39.9 Sec (11.4-14.6)
== END ==
LOC: HWLAB 08:17
PROVIDERS: ATTENDING PHYSICIAN Internal Medicine Cardiovascular Disease; OTHER PHYSICIAN Internal Medicine Hematology & Oncology; REFERRING PHYSICIAN Internal Medicine
DX: Z79.01 Long term (current) use of anticoagulants (principal)
CPT/HCPCS: 36415; 85014; 85018; 85610

== ENCOUNTER → 2025-05-19 07:53 | Outpatient (REF) | payer OTHER, SELFPAY ==
[2025-05-19 09:47] LABS: Hematocrit 30.9 % (37.0-47.0); Hemoglobin 9.8 g/dL (12.0-16.0)
[2025-05-19 09:56] LABS: INR 3.26; PT 33.1 Sec (11.4-14.6)
== END ==
LOC: HWLAB 07:53
PROVIDERS: Internal Medicine; ATTENDING PHYSICIAN Internal Medicine Cardiovascular Disease; OTHER PHYSICIAN Internal Medicine Hematology & Oncology
DX: Z79.01 Long term (current) use of anticoagulants (principal)
CPT/HCPCS: 36415; 85014; 85018; 85610

== ENCOUNTER → 2025-05-24 09:40 | Outpatient (REF) | payer OTHER, SELFPAY ==
[2025-05-24 12:01] LABS: Hematocrit 29.5 % (37.0-47.0); Hemoglobin 9.2 g/dL (12.0-16.0); Mean Corp Hgb Conc. 31.2 g/dL (33.0-37.0); Mean Corpuscular Volume 90.5 fL (81.0-99.0); Nucleated Red Blood Cells % 0 %; Platelet Count 371 10^3/uL (130-400); Red Cell Dist. Width 15.6 % (11.5-14.5)
[2025-05-24 12:17] LABS: INR 7.42; PT 61.6 Sec (11.4-14.6)
[2025-05-24 15:21] LABS: Iron 53 ug/dl (37-170)
[2025-05-24 15:32] LABS: Total Iron Binding Capacity 303 ug/dl (265-497)
[2025-05-24 15:47] LABS: Ferritin 89.7 ng/ml (11.1-264.0)
== END ==
LOC: HWLAB 09:40
PROVIDERS: ATTENDING PHYSICIAN Internal Medicine Hematology & Oncology; REFERRING PHYSICIAN Internal Medicine Cardiovascular Disease
DX: Z79.01 Long term (current) use of anticoagulants (principal); C50.111 Malignant neoplasm of central portion of right female breast; E83.50 Unspecified disorder of calcium metabolism; D53.9 Nutritional anemia, unspecified; D68.9 Coagulation defect, unspecified; E55.9 Vitamin D deficiency, unspecified; Z51.11 Encounter for antineoplastic chemotherapy; M81.0 Age-related osteoporosis without current pathological fracture; D50.0 Iron deficiency anemia secondary to blood loss (chronic); D50.9 Iron deficiency anemia, unspecified; R13.10 Dysphagia, unspecified; D63.8 Anemia in other chronic diseases classified elsewhere
CPT/HCPCS: 36415; 82728; 83540; 83550; 85025; 85610

== ENCOUNTER → 2025-05-27 07:21 | Outpatient (REF) | payer OTHER, SELFPAY ==
[2025-05-27 09:55] LABS: INR 1.78; PT 20.9 Sec (11.4-14.6)
[2025-05-27 10:00] LABS: Hematocrit 21.0 % (37.0-47.0); Hemoglobin 6.5 g/dL (12.0-16.0); Mean Corp Hgb Conc. 31.0 g/dL (33.0-37.0); Mean Corpuscular Volume 92.1 fL (81.0-99.0); Nucleated Red Blood Cells % 0.3 %; Platelet Count 322 10^3/uL (130-400); Red Cell Dist. Width 15.8 % (11.5-14.5)
== END ==
LOC: HWLAB 07:21
PROVIDERS: ATTENDING PHYSICIAN Internal Medicine Hematology & Oncology; REFERRING PHYSICIAN Internal Medicine Cardiovascular Disease
DX: Z79.01 Long term (current) use of anticoagulants (principal); C50.111 Malignant neoplasm of central portion of right female breast
CPT/HCPCS: 36415; 85025; 85610

== ENCOUNTER 2025-05-27 17:24 | Observation (INO) | payer OTHER, SELFPAY ==
[2025-05-27] VITALS (20 sets, daily range): BP systolic 106–147; BP diastolic 43–84; BMI 18.0; BMI 17.4
--- NOTE | 2025-05-27 12:36 | ED.GENMED ---
History of Present Illness
General
Chief Complaint: Chest Pain
Time Seen by Provider: 05/27/25 12:02
History of Present Illness
History of Present Illness:
69-year-old female sent to the emergency room for evaluation after outpatient testing showed that she was anemic with a hemoglobin of 6.5 patient feels weak and tired short of breath with minimal exertion. She has had several episodes such as this.
She requires oral anticoagulation due to mechanical valve. She has developed GI bleeding which is thought to be due to AV malformations though endoscopies and a camera study have never really identified a source. Patient finds that if her INR
gets above a certain level that she begins to bleed.
Past History
Past History
ED Past Medical History: Cancer (Hodgkin's lymphoma, breast), CVA, GERD, HTN, Valvular disease and Hypothyroidism
ED Past Surgical History: Cardiac (Mechanical aortic valve replacement), , Orthopedic and Other (Thyroidectomy, splenectomy, mastectomy)
Patient has exhibited threatening behavior?: No
PSI?: No
Social History
Tobacco: Non-smoker
Alcohol: None
Drug: None
Personal:
Living: with family
Employment: Employed
Family History
Family History: Other (Noncontributory)
Phy Exam
Physical Exam
Physical Exam:
General: Awake, Alert, Oriented X3. No acute distress. Appears chronically ill
Vitals: unremarkable
Head: Atraumatic
Eyes: Pupils equal, EOMI
Throat: Airway intact, no exudates
Neck: Trachea midline
Lungs: Clear and equal b/l
Heart: Regular rate, no murmurs
Abd: Soft, Nontender, No pulsatile mass
Neuro: Nonfocal
Skin: Warm, dry, no rash
Extremities: pulses equal b/l, no edema
Scores
Heart Score for Chest Pain Patients
STEMI patient?: Not applicable
Course
Orders/Labs/Results
Orders:
Orders
05/27/25
Electrocardiogram (*1) Stat
Comment: DONE
05/27/25 12:01
Type And Crossmatch [Type+Screen] Urgent
05/27/25 12:21
Blood Bank Products [* Blood Bank Products] Urgent
Blood Bank Products: *Packed RBC Leuko(PRBC's)
Quantity: 2
Transfuse Today: Yes
Reason: Anemia
05/27/25 12:35
Basic Metabolic Panel Urgent
05/27/25 Dinner
Regular
At Your Request: Full Participation
05/27/25 16:54
Admit/Transfer Patient As Directed
Co-Sign Provider:
Level of Care: Observation services
Assign to:: Medical/Surgical
Physician / Group: Jean-Pierre
Diagnosis: acute on chronic anemia
PRN Pain Medication Management As Directed
May give lesser potent ordered pain med per pt: Yes
preference::
Protocol:: Medication orders for pain may be administered in a
manner that supports deferring to patient preference
when the pt is:
- Requesting an ordered lesser potent pain medication.
Least to most potent pain medications are defined
as: acetaminophen < NSAID < tramadol < opioids
(morphine, oxycodone, hydromorphone).
- Requesting a lesser dose of the same medication IF
ORDERED.
- Requesting a less intrusive route of administration
if both routes are prescribed by the provider (PO <
IV).
05/27/25 16:56
Code Status As Directed
Resuscitation Status: Do not resuscitate
Reached after discussion with pt or family/Healthcare POA: Yes
Decision communicated with: as per discussion with Aura Young, pt's RN in ER
05/27/25 16:58
DNR Bracelet Application ONCE
05/27/25 16:59
Warfarin [Coumadin] 1 mg PO NOW STA
05/27/25 17:00
Warfarin [Coumadin] 0.5 mg PO NOW STA
05/27/25 18:21
Acetaminophen [Tylenol] 650 mg PO Q4HPRN PRN
Bisacodyl [Dulcolax] 10 mg RECTAL [id number] PRN
Docusate W/Senna [Senokot-S] 1 tablet PO BIDPRN PRN
Lorazepam [Ativan] 0.5 mg PO BIDPRN PRN anxiety
Ondansetron Injectable [Zofran] 4 mg IV Q6HPRN PRN
Polyethylene Glycol Powder [Miralax] 17 grams PO DAILYPRN PRN
05/27/25 18:21
Activity As Directed
Activity Level: With Assistance
Pneumatic Compression Sleeves As Directed
Type: Knee high
Vital Signs As Directed
Frequency: Per unit guidelines
DX Deep Vein Thrombosis Video Routine
05/27/25 20:00
Metoprolol Xl [Toprol Xl] 50 mg PO BID
05/28/25 06:00
Levothyroxine [Synthroid] 88 mcg PO DAILY@0600
05/28/25 08:00
Furosemide [Lasix] 20 mg PO SUTUTHSA@0800
Pantoprazole [Protonix] 40 mg PO DAILY
05/28/25 08:08
Prothrombin Time IN AM
05/30/25 08:00
Furosemide [Lasix] 40 mg PO MOWEFR@0800
Abnormal Lab Results
05/27/25 05/27/25
12:01 12:35
BUN 67 H mg/dl
(7-17)
Creatinine 1.3 H mg/dL
(0.6-1.0)
Calcium 8.1 L mg/dl
(8.4-10.2)
Crossmatch IS Only See Detail
05/27/25 12:35
Vital Signs
Initial and Last Documented VS:
Initial Vital Signs
Temp Pulse Resp BP Pulse Ox
98.6 F 98 16 145/58 98
05/27/25 11:08 05/27/25 11:08 05/27/25 11:08 05/27/25 11:08 05/27/25 11:08
Last Documented Vital Signs
Temp Pulse Resp BP Pulse Ox
98.0 F 82 16 107/45 99
05/28/25 07:00 05/28/25 08:13 05/28/25 07:00 05/28/25 08:13 05/28/25 07:00
MDM/Problems Addressed
Differential Diagnosis Includes:
Symptomatic anemia from GI blood loss
MDM/Problems Addressed:
Patient presents with anemia. She has been suffering with episodes such as this for some time. She requires anticoagulation due to her mechanical valve she becomes supratherapeutic she begins to bleed. 2 units of blood ordered. Discussed the
potential for transfusion at discharge however patient feels like she never does well when she is discharged and much insisted upon observation at the hospital. Patient referred to the hospitalist for observation and transfusion.
*Pulse Oximetry
SaO2: 100
Oxygen Mode of Delivery: Room air
Patient hypoxic: no
*Critical Care Note
Total Time (30-74mins, 75-104mins- exclusive of procedures): Not Applicable
ED Attending Note
-
Portions of this chart may have been created with voice recognition software.� Occasional wrong word or��sound alike� substitutions may have occurred due to the inherent limitations of voice recognition software.
Discharge Plan
Departure
Patient Disposition: Home (Routine Discharge)
Date of Disposition: 05/27/25
Time of Disposition: 12:36
Patient with high blood pressure during this ER visit?: No
Condition: Good
Covid-19: Not Applicable
Discharge Problem:
Symptomatic anemia, GI bleeding
Interventions
Interventions:
*Risk Screen - Suicide Last Done: 05/27/25 11:08
*General Assessment Last Done: 05/27/25 11:50
*Neglect/Abuse Screening Last Done: 05/27/25 11:08
*ED COVID-19 Vaccine History Last Done: 05/27/25 18:27
*Nursing Disposition Last Done: 05/27/25 18:09
ED- Cardiac Assessment Last Done: 05/27/25 11:51
Discharge Date and Time
Discharge Date/Time: 05/27/25 18:09
[2025-05-27 13:03] LABS: Blood Urea Nitrogen 67 mg/dl (7-17); Calcium 8.1 mg/dl (8.4-10.2); Carbon Dioxide 26 mmol/L (22-30); Chloride 106 mmol/L (98-107); Estimated Creatinine Clearance 24 ml/min; Glucose 99 mg/dl (70-99); Potassium 3.9 mmol/L (3.5-5.1); Sodium 137 mmol/L (135-145); eGFR 43.96
--- NOTE | 2025-05-27 13:54 | CON.HOSP ---
Addendum entered and electronically signed by Rangel Morejon MD 05/27/25 14:50:
I personally performed a history and physical exam of the patient and discussed management with the resident. I reviewed the resident's note and agree with the documented findings and plan of care HPI/CC.
69 y/o F with complex PMHx including pediatric mech AVR, recurrent acute blood loss anemia, essential hypertension, CKD3a, hypothyroidism, Chronic HFPEF, CVA who presents with CCs chest pressure and lightheadedness. She has outpt labs showing
anemia, Hb here 6.5. States dark brown stools but no melena/dark tarry stool. Recently had INR 7 and had held coumadin for 2 days.
134/45, 90, 15, 98.6 F, 100% RA
NAD, awake and alert, appears chronically ill and malnourished
RRR, normal S1/S1
CTAB
+BS/soft/NT/ND
CN2-12 intact
Hb 6.5
Cr 1.3
INR 1.78 today, 7.42 on 05/27/25
Acute on chronic anemia:
-pt denies melena/tarry stool and has recently had unrevealing EGD/colonoscopy
-case discussed with Drs. Norton and Micehlle Justice
-transfuse 2U pRBCs
-with mechanical AVR cardiology is not recommending bridging with coumadin, rather, increase coumadin to 1.5mg HS
-recommend d/c home after 2U pRBCs on coumadin to 1.5mg HS. No indication for admission at this time.
Original Note:
Consultation
-
Requesting Provider: Dr. Norton
Performing Provider: Dr. Rangel Morejon, Dr. Han Goddard
Reason for Consultation: Anemia, Hb <7,
Family Physician
-
Family Physician: Melanie Haynes MD
Chief Complaint
-
Shortness of breath
History of Present Illness
Patient is a 69 year old female with a past medical history of chronic heart failure with preserved ejection fraction, CVA, aortic valve replacement, hypertension, GERD and hypothyroidism who presents with shortness of breath. Patient started having
progressive shortness of breath over the past week with associated palpitations, dizziness, fatigue and chest pressure. She describes the chest pressure as substernal and feels like a heavy object on her chest. Patient states her INR was 7.42 on
05/24/25, so her last dose of Coumadin was 2 mg on Friday night. Patient had blood work done this morning and was informed that her hemoglobin is 6.5, and her INR is 1.7. She was advised by her engineering secretary and customer counter associate to go to the ER. Patient
denies black and tarry stool, and states her stools are dark brown. No other signs of bleeding. Patient is requesting a cardiology consult but denies a GI consult.
Medical History
Past Medical History
Past Medical History: Reports Cancer (Hodgkin's lymphoma (s/p radiation 1973), breast cancer (2018, bilateral mastectomy, declined chemo and radiation, later treated with tamoxifen)) and Hypothyroidism
Additional Past Medical History:
Recurrent GI bleeding, aortic stenosis (s/p replacement with pediatric mechanical valve due to scarring from radiation), mitral stenosis and regurgitation, pulmonary hypertension, heart failure with preserved ejection fraction, CVA (right MCA stroke
2005), hypertension hypothyroidism
Past Surgical History: Reports Appendectomy and Other (Splenectomy, thyroidectomy, bilateral mastectomy 2017, [place] mechanical aortic valve replacement 2006)
Social History
Tobacco: Former Smoker (Quit > 30 years ago)
Alcohol: Occasional
Drug: None
Personal:
Living: With Family ()
Family History
Family History: Reviewed & Not Pertinent
Allergies / Home Medications
Allergies reflects when Allergies were last updated in [employer].
Home Medications with original date entered in [employer]
Allergy/Medication List:
Allergies:
Penicillins
Tramadol
Palbociclib
Home medications:
levothyroxine 88 MCG tablet
88 mcg PO DAILY AT 0700
Patient Comments:
10/24/24--MUST BE BRAND NAME SYNTHROID Pt advised to have family/spouse bring in her Synthroid from home.
metoprolol succinate 50 mg tablet extended release 24 hr
50 mg PO BID
pantoprazole [Protonix] 40 mg tablet,delayed release (DR/EC)
40 mg PO DAILY Qty: 30 0RF
furosemide 40 mg tablet
40 mg PO MOWEFR@0800
warfarin 2.5 mg Tablet
2.5 mg PO .6 DAYS A WEEK,OFF 1
lorazepam 0.5 mg tablet
0.5 mg PO BIDPRN PRN (Reason: anxiety)
furosemide [Lasix] 20 mg Tablet
20 mg PO SUTUTHSA@0800
ipratropium bromide 42 mcg (0.06 %) spray,non-aerosol
2 spray INTRANASAL BIDPRN PRN (Reason: post-nasal drip)
Review of Systems
-
History Source: Patient
Constitutional: Reports Fatigue
EENT: Reports No Symptoms
Respiratory: Reports Trouble Breathing
Cardiac: Reports Palpitations and Other (Chest pressure)
Abdomen/GI: Reports No Symptoms
: Reports No Symptoms
Musculoskeletal: Reports No Symptoms
Skin: Reports No Symptoms
Neurological: Reports Dizzy
Endocrine: Reports No Symptoms
Hematologic/Lymphatic: Reports No Symptoms
Psych: Reports No Symptoms
Physical Exam
Vital Signs
Vital Signs
Temp Pulse Resp BP Pulse Ox
98.6 F 90 15 134/45 100
05/27/25 13:46 05/27/25 13:46 05/27/25 13:46 05/27/25 13:46 05/27/25 13:46
Physical Exam
General: Well Developed, No Apparent Distress and Comfortable
HEENT: Normocephalic, Anicteric, Moist Mucous Membranes and Atraumatic
Respiratory: Clear and Non Labored Respirations
Cardiac: S1/S2, Regular Rhythm and Murmur (Systolic murmur heard at left sternal border)
GI: Soft, Non Tender, Non Distended and Normal Bowel Sounds
Genito-urinary: No Costovertebral Tend
Skin: Warm and Dry
Neuro: Awake, AO x 3 and Nonfocal/Grossly Intact
Hematologic/Lymphatic: No Lymphadenopathy
Psych: Calm
Laboratory Results
-
Laboratory Results
05/27/25 12:35
Data Reviewed
-
Old Records: Reviewed
Impression / Plan
-
IMPRESSION: 69-year-old female with a past medical history of chronic heart failure with preserved ejection fraction, CVA, pediatric aortic valve replacement, hypertension, GERD and hypothyroidism who presents to the ER with low hemoglobin per lab
results today. Patient was informed that her hemoglobin was 6.5. She is having shortness of breath, chest pressure, fatigue, dizziness, and palpitations over the past week. Her INR was 7.42 after which she stopped her Coumadin 2 Mg daily. Last
dose of Coumadin was on Friday night. INR today was 1.78.
PLAN:
# Subtherapeutic INR
# History of aortic valve replacement
- Cardiology consulted.
- Plan to restart warfarin at 1.5 Mg daily and will recheck INR on 05/30/2025. No further GI procedures planned after recent hospitalization. [facility] Coumadin clinic made aware.
# Anemia of unknown etiology
- Hemoglobin 6.5. 1 unit PRBCs given in the ED.
-EGD 05/09/2025 with gastritis but no old or fresh blood
-Colonoscopy 05/10/2025 without blood, unremarkable other than a single 5 mm diverticulum in terminal ileum.
#Essential hypertension
-Continue Lasix and metoprolol
# Hypothyroidism
-Continue Synthroid
# Chronic heart failure with preserved ejection fraction
-Continue metoprolol and Lasix
--- NOTE | 2025-05-27 14:18 | W.PN.UPDATE ---
Update Note
Progress Note Update
Patient in ER w/ anemia. Hgb 6.5. 1 unit PRBCs transfusing in ER. INR as OP had been as high as 7.42 on 05/24, so her usual dose of warfarin 2mg has been on hold for the past 3 days. On recheck today, INR 1.78. Plan is to restart warfarin at 1.5mg
daily and will recheck INR on Friday, 05/30. No further GI procedures planned after recent hospitalization. [facility] Coumadin clinic made aware.
--- NOTE | 2025-05-27 15:24 | W.PN.UPDATE ---
Update Note
Progress Note Update
I reported to bedside to go over the plan of care with the patient again. I reiterated that she will receive 2 units of packed red blood cells and then be discharged home. She will have her INR and hemoglobin checked in 3 days. Her Coumadin dose
will be 1.5 mg at bedtime. I have provided scripts for the patient's Coumadin as well as her lab work. I reiterated to the patient that should she have any concerning symptoms of any kind that she should report back to the ER. She verbally
acknowledged understanding of this.
--- NOTE | 2025-05-27 17:05 | CM ---
CM reviewed chart and met with pt bedside in ED. Lives with her in 2 story home, 1 OC.
Independent in ADLs, personal care and ambulation at baseline. No assistive devices, no DME.
Pty does not feel comfortable going home after blood transfusion as twice before she has had to return to the ED the next day for more blood.
Hx VN in past, no hx SNF.
Confirms prescription coverage.
[place] reviewed and signed.
PCP: Melanie Haynes
Pharmacy: [facility]
CM will continue to follow for all discharge planning needs.
[2025-05-27] MEDS: COUMADIN 1 MG PO (17:31)
[2025-05-27] MEDS: COUMADIN 0.5 MG PO (17:31)
--- NOTE | 2025-05-27 18:43 | TRANSFER ---
pt arrives from the Er around 1809. assist x 1 into hospital bed to ensure safety. pt denies any symptoms at this time besides being fatigued. VSS, aaox3. admission completed. plan of care continues to be followed.
[2025-05-27] MEDS: TOPROL XL 50 MG PO (20:18)
[2025-05-27] MEDS: ATIVAN 0.5 MG PO (20:18)
[2025-05-28] MEDS: SYNTHROID 88 MCG PO (05:40)
[2025-05-28 06:10] VITALS: BMI 17.0
[2025-05-28 07:00] VITALS: BP 107/45
[2025-05-28 08:00] LABS: Hematocrit 29.2 % (37.0-47.0); Hemoglobin 9.8 g/dL (12.0-16.0)
--- NOTE | 2025-05-28 08:04 | W.PN.UPDATE ---
Update Note
Progress Note Update
I saw and evaluated the patient. I reviewed the resident�s note and agree with findings and plan as documented in the resident�s note.
Denies CP. No new complaints.
Gen: NAD, AAOx3, appears chronically ill.
Eyes: EOMI, PERRLA, no scleral icterus.
Neck: supple.
CV: RRR, +S1/S2, no m/r/g.
Resp: CTAB, no rales, wheezes, or rhonchi.
Neuro: CN 2-12 intact, non-focal.
Psych: Normal mood and affect.
Acute on chronic anemia:
-pt denies melena/tarry stool and has recently had unrevealing EGD/colonoscopy
-Hb 9.8 2U pRBCs
-with mechanical AVR cardiology did not recommend bridging with coumadin, rather, coumadin increased to 1.5mg HS
Medically cleared for discharge.
Total time spent on d/c = 31 min. This included today's physical exam, progress note, review of laboratory and diagnostic data, preparation of discharge documents and prescriptions, and discussions about the pt's hospital course and discharge plan
with the patient and other medical insurance claims specialist involved in the patient's care.
--- NOTE | 2025-05-28 08:04 | W.PN.HOSP.TC ---
Today's Communication/Plan
-
Patient is medically cleared for discharge.
Assessment / Plan
Assessment / Plan
69-year-old female with a complex past medical history including pediatric mechanical aortic valve replacement, recurrent acute blood loss anemia, essential hypertension, CKD 3A, hypothyroidism, chronic HFpEF, CVA who presented with chest pressure
and lightheadedness. She had outpatient labs showing anemia and INR of 1.78. INR 7.42 on 05/24/25, last dose of Coumadin 2.5 mg PO on 05/23/25 night. Patient denies melena/dark tarry stool and states her stool is dark brown in color. Hgb 6.5 upon
arrival to ED. Patient received 2 units of PRBCs in the ED, and refused to leave because of concerns of persistent low hemoglobin despite getting transfusions. Patient admitted to [facility].
Assessment/Plan:
# Acute on chronic anemia
- Hemoglobin 6.5 on 05/27/25. 2 units PRBCs given in the ED. Hgb 9.8 today.
- EGD 05/09/2025 with gastritis but no old or fresh blood
- Colonoscopy 05/10/2025 without blood, unremarkable other than a single 5 mm diverticulum in terminal ileum.
# Subtherapeutic INR
# History of aortic valve replacement
- INR 1.78, 7.42 on 05/24/25 after which Coumadin was stopped.
- Cardiology consulted.
- Plan to restart warfarin at 1.5 Mg daily and will recheck INR on 05/30/2025. No further GI procedures planned after recent hospitalization. [facility] Coumadin clinic made aware.
#Essential hypertension
-Continue Lasix and metoprolol
# Hypothyroidism
-Continue Synthroid
# Chronic heart failure with preserved ejection fraction
-Continue metoprolol and Lasix
DNR
Anticipated Discharge: Today
Subjective/Interval History
-
Date of Service: May 28, 2025
Patient feels well. No new complaints.
Objective Data
-
Labs:
Laboratory Results
05/28/25 05/28/25
06:00 07:47
WBC Cancelled
Hgb Cancelled 9.8 L D
Hct Cancelled 29.2 L
Plt Count Cancelled
PT Pending
INR Pending
Sodium Pending
Potassium Pending
Chloride Pending
Carbon Dioxide Pending
BUN Pending
Creatinine Pending
Glucose Pending
Calcium Pending
Vital Signs:
Vital Signs
Temp Pulse Resp BP Pulse Ox
98.0 F 82 16 107/45 99
05/28/25 07:00 05/28/25 07:00 05/28/25 07:00 05/28/25 07:00 05/28/25 07:00
I&O
05/27/25 05/28/25 05/29/25
06:59 06:59 06:59
Intake Total 980 / 980
Balance 980 / 980
Review of Systems
-
History Source: Patient
All other systems: Reviewed and negative
EENT: Reports No Symptoms Reported
Respiratory: Reports No Symptoms
Abdomen/GI: Reports No Symptoms
Breast: Reports No Symptoms
Genitourinary: Reports No Symptoms
Musculoskeletal: Reports No Symptoms
Skin: Reports No Symptoms
Endocrine: Reports No Symptoms
Hematologic / Lymphatic: Reports No Symptoms
Allergy / Immunology: Reports No Symptoms
Physical Exam
-
General: Well Developed, No Apparent Distress, Comfortable, Conversant and Cachectic
HEENT: Normocephalic, Atraumatic, Moist Mucous Membranes and Anicteric
Respiratory: Clear to Auscultation
Cardiac: Regular Rhythm and S1/S2
GI: Soft, Nontender, Nondistended, Normal Bowel Sounds and No Hepatosplenomegaly
Genito-urinary: No Costovertebral Tender
Musculoskeletal: No Clubbing, No Cyanosis and No Edema
Skin: Warm and Dry
Neuro: Awake and AO x 3
Hematologic / Lymphatic: No Lymphadenopathy
Psych: Calm
Data Reviewed
-
Labs: Labs Reviewed by me and Discussed with Physician
Old Records: Reviewed
[2025-05-28] MEDS: LASIX 20 MG PO (08:13)
[2025-05-28] MEDS: TOPROL XL 50 MG PO (08:13)
[2025-05-28] MEDS: PROTONIX 40 MG PO (08:13)
--- NOTE | 2025-05-28 08:30 | W.DCSUMMARY ---
Discharge Summary
Discharge Data
Date of Admission: 05/27/25
Date of Discharge: 05/28/25
-
Pending Results: No
Hospital Course
69-year-old female with a complex past medical history including pediatric mechanical aortic valve replacement, recurrent acute blood loss anemia, essential hypertension, CKD 3A, hypothyroidism, chronic HFpEF, CVA who presented with chest pressure
and lightheadedness. She had outpatient labs showing anemia and INR of 1.78. INR 7.42 on 05/24/25, last dose of Coumadin 2.5 mg PO on 05/23/25 night. Patient denies melena/dark tarry stool and states her stool is dark brown in color. Hgb 6.5 upon
arrival to ED. cardiology consulted, plan to restart warfarin at 1.5 Mg daily and recheck INR on 05/30/2025. [facility] Coumadin clinic made aware. No further GI procedures planned after recent hospitalization. Patient received 2 units of PRBCs in the ED,
and refused to leave because of concerns of persistent low hemoglobin despite getting transfusions. Patient admitted to [facility]. Repeat hemoglobin 9.8 today, patient medically cleared for discharge. Advised to follow-up with PCP within a week.
Patient agrees to this plan.
Discharge Plan
-
Patient Disposition: Home (Routine Discharge)
Discharge Diagnosis/Procedures: Acute on chronic anemia
Condition: Good
Diet: Regular and Restrict fluids to 48 oz
Activity: No restrictions
Driving Restrictions: As prior to admission
Bathing Restrictions: None
Blood Work: CBC, BMP in 3 days - obtain script from PCP
Referrals:
Melanie Haynes MD [Family Provider, Internal Medicine] - in less than 1 week
Additional Discharge Medication Instructions: Take warfarin 1.5 Mg p.o. daily.
Prescriptions:
New
warfarin 1 mg tablet
1.5 mg PO DAILY Qty: 45 0RF
Continued
levothyroxine 88 MCG tablet
88 mcg PO DAILY AT 0700
Patient Comments:
10/24/24--MUST BE BRAND NAME SYNTHROID Pt advised to have family/spouse bring in her Synthroid from home.
metoprolol succinate 50 mg tablet extended release 24 hr
50 mg PO BID
furosemide 40 mg tablet
40 mg PO MOWEFR@0800
lorazepam 0.5 mg tablet
0.5 mg PO BIDPRN PRN (Reason: anxiety)
furosemide [Lasix] 20 mg Tablet
20 mg PO SUTUTHSA@0800
Artificial Tears (PF) Dropperette
1 drp BOTH EYES QIDPRN PRN (Reason: dry eye)
pantoprazole [Protonix] 40 mg tablet,delayed release (DR/EC)
40 mg PO DAILY
Discontinued
celecoxib 100 mg capsule
1 mg PO BIDPRN PRN (Reason: severe pain)
warfarin 1 mg Tablet
1 - 2.5 mg PO DIRECTED
Patient Comments:
05-27-25; last dose was 2.5 mg qevening dose varies between 1 to 2.5 mg every evening.
Discharge Orders:
Discharge Patient (As Directed); Ordered 05/28/25
Ordered By: Han Goddard
Discharge Date and Time
Print Language: SWEDISH
[2025-05-28 08:33] LABS: INR 1.68; PT 20.0 Sec (11.4-14.6)
[2025-05-28 09:00] LABS: Blood Urea Nitrogen 51 mg/dl (7-17); Calcium 8.2 mg/dl (8.4-10.2); Carbon Dioxide 23 mmol/L (22-30); Chloride 112 mmol/L (98-107); Estimated Creatinine Clearance 25 ml/min; Glucose 92 mg/dl (70-99); Magnesium 2.2 mg/dl (1.6-2.3); Potassium 4.0 mmol/L (3.5-5.1); Sodium 140 mmol/L (135-145); eGFR 48.39
== END 2025-05-28 09:57 | disposition home or self-care (01) ==
LOC: 4 WEST ACU 17:24
PROVIDERS: ADMITTING PHYSICIAN Internal Medicine; EMERGENCY PHYSICIAN Emergency Medicine; FAMILY PHYSICIAN Emergency Medicine
DX: D62 Acute posthemorrhagic anemia (principal); K92.2 Gastrointestinal hemorrhage, unspecified; R07.9 Chest pain, unspecified; R06.02 Shortness of breath; R53.1 Weakness; R79.83 Abnormal findings of blood amino-acid level; N18.31 Chronic kidney disease, stage 3a; I13.0 Hypertensive heart and chronic kidney disease with heart failure and stage 1 through stage 4 chronic kidney disease, or unspecified chronic kidney disease; K21.9 Gastro-esophageal reflux disease without esophagitis; E89.0 Postprocedural hypothyroidism; I50.32 Chronic diastolic (congestive) heart failure; R07.89 Other chest pain; E46 Unspecified protein-calorie malnutrition; I27.20 Pulmonary hypertension, unspecified; R00.2 Palpitations; R94.31 Abnormal electrocardiogram [ECG] [EKG]; Z87.891 Personal history of nicotine dependence; Z90.13 Acquired absence of bilateral breasts and nipples; Z88.0 Allergy status to penicillin; Z88.5 Allergy status to narcotic agent; Z90.49 Acquired absence of other specified parts of digestive tract; Z85.71 Personal history of Hodgkin lymphoma; Z85.3 Personal history of malignant neoplasm of breast; Z95.2 Presence of prosthetic heart valve; Z90.81 Acquired absence of spleen; Z66 Do not resuscitate; Z79.01 Long term (current) use of anticoagulants; Z86.73 Personal history of transient ischemic attack (TIA), and cerebral infarction without residual deficits
CPT/HCPCS: 36430; 80048; 83735; 85014; 85018; 85610; 86850; 86900; 86901; 86920; 93005; 99285; G0378; P9016

== ENCOUNTER → 2025-05-30 07:48 | Outpatient (REF) | payer OTHER, SELFPAY ==
[2025-05-30 10:24] LABS: INR 1.58; PT 19.1 Sec (11.4-14.6)
[2025-05-30 10:26] LABS: Hematocrit 29.8 % (37.0-47.0); Hemoglobin 9.2 g/dL (12.0-16.0); Mean Corp Hgb Conc. 30.9 g/dL (33.0-37.0); Mean Corpuscular Volume 92.8 fL (81.0-99.0); Nucleated Red Blood Cells % 0.4 %; Platelet Count 312 10^3/uL (130-400); Red Cell Dist. Width 17.8 % (11.5-14.5)
[2025-05-30 10:57] LABS: Iron 37 ug/dl (37-170)
[2025-05-30 11:16] LABS: Ferritin 60.3 ng/ml (11.1-264.0)
== END ==
LOC: HWLAB 07:48
PROVIDERS: ATTENDING PHYSICIAN Internal Medicine Cardiovascular Disease; OTHER PHYSICIAN Internal Medicine; REFERRING PHYSICIAN Internal Medicine Hematology & Oncology
DX: D50.9 Iron deficiency anemia, unspecified (principal); Z79.01 Long term (current) use of anticoagulants; C50.111 Malignant neoplasm of central portion of right female breast; D53.9 Nutritional anemia, unspecified; D50.0 Iron deficiency anemia secondary to blood loss (chronic)
CPT/HCPCS: 36415; 82728; 83540; 85025; 85610

== ENCOUNTER → 2025-06-03 07:46 | Outpatient (REF) | payer OTHER, SELFPAY ==
[2025-06-03 10:08] LABS: Hematocrit 30.7 % (37.0-47.0); Hemoglobin 9.5 g/dL (12.0-16.0); Mean Corp Hgb Conc. 30.9 g/dL (33.0-37.0); Mean Corpuscular Volume 91.4 fL (81.0-99.0); Nucleated Red Blood Cells % 2.1 %; Platelet Count 309 10^3/uL (130-400); Red Cell Dist. Width 17.1 % (11.5-14.5)
[2025-06-03 10:12] LABS: INR 2.79; PT 29.4 Sec (11.4-14.6)
== END ==
LOC: HWLAB 07:46
PROVIDERS: ATTENDING PHYSICIAN Internal Medicine Hematology & Oncology; OTHER PHYSICIAN Internal Medicine; REFERRING PHYSICIAN Internal Medicine Cardiovascular Disease
DX: C50.111 Malignant neoplasm of central portion of right female breast (principal); E83.50 Unspecified disorder of calcium metabolism; D53.9 Nutritional anemia, unspecified; D68.9 Coagulation defect, unspecified; E55.9 Vitamin D deficiency, unspecified; Z51.11 Encounter for antineoplastic chemotherapy; M81.0 Age-related osteoporosis without current pathological fracture; D50.0 Iron deficiency anemia secondary to blood loss (chronic); Z79.01 Long term (current) use of anticoagulants; C50.012 Malignant neoplasm of nipple and areola, left female breast; D50.9 Iron deficiency anemia, unspecified; R13.10 Dysphagia, unspecified
CPT/HCPCS: 36415; 85025; 85610

== ENCOUNTER → 2025-06-09 07:58 | Outpatient (REF) | payer OTHER, SELFPAY ==
[2025-06-09 09:51] LABS: Hematocrit 36.0 % (37.0-47.0); Hemoglobin 10.9 g/dL (12.0-16.0); Mean Corp Hgb Conc. 30.3 g/dL (33.0-37.0); Mean Corpuscular Volume 94.7 fL (81.0-99.0); Nucleated Red Blood Cells % 0.4 %; Platelet Count 514 10^3/uL (130-400); Red Cell Dist. Width 17.0 % (11.5-14.5)
[2025-06-09 09:53] LABS: INR 3.32; PT 34.0 Sec (11.4-14.6)
== END ==
LOC: HWLAB 07:58
PROVIDERS: ATTENDING PHYSICIAN Internal Medicine Hematology & Oncology; REFERRING PHYSICIAN Internal Medicine Cardiovascular Disease
DX: C50.111 Malignant neoplasm of central portion of right female breast (principal); E83.50 Unspecified disorder of calcium metabolism; D53.9 Nutritional anemia, unspecified; D68.9 Coagulation defect, unspecified; E55.9 Vitamin D deficiency, unspecified; Z51.11 Encounter for antineoplastic chemotherapy; M81.0 Age-related osteoporosis without current pathological fracture; D50.0 Iron deficiency anemia secondary to blood loss (chronic); Z79.01 Long term (current) use of anticoagulants; C50.012 Malignant neoplasm of nipple and areola, left female breast; D50.9 Iron deficiency anemia, unspecified; R13.10 Dysphagia, unspecified
CPT/HCPCS: 36415; 85025; 85610

== ENCOUNTER → 2025-06-16 06:58 | Outpatient (REF) | payer OTHER, SELFPAY ==
[2025-06-16 09:40] LABS: Hematocrit 32.7 % (37.0-47.0); Hemoglobin 9.9 g/dL (12.0-16.0); Mean Corp Hgb Conc. 30.3 g/dL (33.0-37.0); Mean Corpuscular Volume 93.7 fL (81.0-99.0); Nucleated Red Blood Cells % 0.3 %; Platelet Count 392 10^3/uL (130-400); Red Cell Dist. Width 16.5 % (11.5-14.5)
[2025-06-16 09:54] LABS: INR 3.80; PT 37.7 Sec (11.4-14.6)
[2025-06-16 10:56] LABS: Blood Urea Nitrogen 29 mg/dl (7-17); Calcium 8.8 mg/dl (8.4-10.2); Carbon Dioxide 27 mmol/L (22-30); Chloride 106 mmol/L (98-107); Glucose 105 mg/dl (70-99); Potassium 4.5 mmol/L (3.5-5.1); Sodium 139 mmol/L (135-145); eGFR 43.96
== END ==
LOC: HWLAB 06:58
PROVIDERS: ATTENDING PHYSICIAN Internal Medicine Cardiovascular Disease; OTHER PHYSICIAN Internal Medicine; REFERRING PHYSICIAN Internal Medicine Hematology & Oncology
DX: Z79.01 Long term (current) use of anticoagulants (principal); C50.111 Malignant neoplasm of central portion of right female breast; E83.50 Unspecified disorder of calcium metabolism; D53.9 Nutritional anemia, unspecified; D68.9 Coagulation defect, unspecified; E55.9 Vitamin D deficiency, unspecified; Z51.11 Encounter for antineoplastic chemotherapy; M81.0 Age-related osteoporosis without current pathological fracture; D50.0 Iron deficiency anemia secondary to blood loss (chronic); C50.012 Malignant neoplasm of nipple and areola, left female breast; D50.9 Iron deficiency anemia, unspecified; R13.10 Dysphagia, unspecified
CPT/HCPCS: 36415; 80048; 85025; 85610

== ENCOUNTER → 2025-06-22 10:16 | Outpatient (REF) | payer OTHER, SELFPAY ==
[2025-06-22 12:04] LABS: Hematocrit 30.5 % (37.0-47.0); Hemoglobin 9.5 g/dL (12.0-16.0); Mean Corp Hgb Conc. 31.1 g/dL (33.0-37.0); Mean Corpuscular Volume 94.1 fL (81.0-99.0); Nucleated Red Blood Cells % 0.3 %; Platelet Count 359 10^3/uL (130-400); Red Cell Dist. Width 16.7 % (11.5-14.5)
[2025-06-22 12:12] LABS: Iron 73 ug/dl (37-170)
[2025-06-22 12:16] LABS: INR 3.72; PT 37.0 Sec (11.4-14.6)
[2025-06-22 12:21] LABS: Total Iron Binding Capacity 299 ug/dl (265-497)
[2025-06-22 12:46] LABS: Ferritin 173.0 ng/ml (11.1-264.0)
== END ==
LOC: HWLAB 10:16
PROVIDERS: ATTENDING PHYSICIAN Internal Medicine Hematology & Oncology; REFERRING PHYSICIAN Internal Medicine Cardiovascular Disease
DX: C50.111 Malignant neoplasm of central portion of right female breast (principal); E83.50 Unspecified disorder of calcium metabolism; D53.9 Nutritional anemia, unspecified; D68.9 Coagulation defect, unspecified; E55.9 Vitamin D deficiency, unspecified; Z51.11 Encounter for antineoplastic chemotherapy; M81.0 Age-related osteoporosis without current pathological fracture; D50.0 Iron deficiency anemia secondary to blood loss (chronic); Z79.01 Long term (current) use of anticoagulants; C50.012 Malignant neoplasm of nipple and areola, left female breast; D50.9 Iron deficiency anemia, unspecified; R13.10 Dysphagia, unspecified
CPT/HCPCS: 36415; 82728; 83540; 83550; 85025; 85610

== ENCOUNTER → 2025-06-30 07:06 | Outpatient (REF) | payer OTHER, SELFPAY ==
[2025-06-30 09:38] LABS: Hematocrit 31.5 % (37.0-47.0); Hemoglobin 9.6 g/dL (12.0-16.0); Mean Corp Hgb Conc. 30.5 g/dL (33.0-37.0); Mean Corpuscular Volume 92.9 fL (81.0-99.0); Nucleated Red Blood Cells % 0 %; Platelet Count 364 10^3/uL (130-400); Red Cell Dist. Width 16.4 % (11.5-14.5)
[2025-06-30 09:47] LABS: INR 3.97; PT 38.9 Sec (11.4-14.6)
== END ==
LOC: HWLAB 07:06
PROVIDERS: ATTENDING PHYSICIAN Internal Medicine Hematology & Oncology; REFERRING PHYSICIAN Internal Medicine Cardiovascular Disease
DX: C50.111 Malignant neoplasm of central portion of right female breast (principal); E83.50 Unspecified disorder of calcium metabolism; D53.9 Nutritional anemia, unspecified; D68.9 Coagulation defect, unspecified; E55.9 Vitamin D deficiency, unspecified; Z51.11 Encounter for antineoplastic chemotherapy; M81.0 Age-related osteoporosis without current pathological fracture; D50.0 Iron deficiency anemia secondary to blood loss (chronic); Z79.01 Long term (current) use of anticoagulants; C50.012 Malignant neoplasm of nipple and areola, left female breast; D50.9 Iron deficiency anemia, unspecified; R13.10 Dysphagia, unspecified
CPT/HCPCS: 36415; 85025; 85610

== ENCOUNTER → 2025-07-07 06:48 | Outpatient (REF) | payer OTHER, SELFPAY ==
[2025-07-07 10:08] LABS: Hematocrit 32.8 % (37.0-47.0); Hemoglobin 10.2 g/dL (12.0-16.0); Mean Corp Hgb Conc. 31.1 g/dL (33.0-37.0); Mean Corpuscular Volume 93.2 fL (81.0-99.0); Nucleated Red Blood Cells % 0 %; Platelet Count 370 10^3/uL (130-400); Red Cell Dist. Width 15.9 % (11.5-14.5)
[2025-07-07 10:21] LABS: INR 1.28; PT 16.5 Sec (11.4-14.6)
[2025-07-07 10:22] LABS: ALT (SGPT) 25 U/L (0-35); AST (SGOT) 40 U/L (14-36); Albumin 3.8 g/dl (3.5-5.0); Alkaline Phosphatase 129 U/L (38-126); Blood Urea Nitrogen 28 mg/dl (7-17); Calcium 8.7 mg/dl (8.4-10.2); Carbon Dioxide 27 mmol/L (22-30); Chloride 106 mmol/L (98-107); Glucose 135 mg/dl (70-99); Potassium 4.0 mmol/L (3.5-5.1); Sodium 140 mmol/L (135-145); Total Protein 9.6 g/dl (6.3-8.2); eGFR 43.96
[2025-07-07 10:44] LABS: TSH 7.74 uIU/ml (0.47-4.68)
== END ==
LOC: HWLAB 06:48
PROVIDERS: ATTENDING PHYSICIAN Internal Medicine Hematology & Oncology; OTHER PHYSICIAN Internal Medicine Cardiovascular Disease; REFERRING PHYSICIAN Internal Medicine Endocrinology, Diabetes & Metabolism
DX: E89.0 Postprocedural hypothyroidism (principal); Z79.01 Long term (current) use of anticoagulants; C50.111 Malignant neoplasm of central portion of right female breast; E83.50 Unspecified disorder of calcium metabolism; D53.9 Nutritional anemia, unspecified; D68.9 Coagulation defect, unspecified; E55.9 Vitamin D deficiency, unspecified
CPT/HCPCS: 80053; 84443; 85025; 85610

== ENCOUNTER → 2025-07-14 10:17 | Outpatient (REF) | payer OTHER, SELFPAY ==
[2025-07-14 12:21] LABS: Hematocrit 36.1 % (37.0-47.0); Hemoglobin 11.2 g/dL (12.0-16.0); Mean Corp Hgb Conc. 31.0 g/dL (33.0-37.0); Mean Corpuscular Volume 90.0 fL (81.0-99.0); Nucleated Red Blood Cells % 0.3 %; Platelet Count 355 10^3/uL (130-400); Red Cell Dist. Width 15.6 % (11.5-14.5)
[2025-07-14 12:35] LABS: INR 2.71; PT 29.2 Sec (11.4-14.6)
== END ==
LOC: HWLAB 10:17
PROVIDERS: ATTENDING PHYSICIAN Internal Medicine Hematology & Oncology; REFERRING PHYSICIAN Internal Medicine Cardiovascular Disease
DX: Z79.01 Long term (current) use of anticoagulants (principal); Z95.2 Presence of prosthetic heart valve
CPT/HCPCS: 36415; 85025; 85610

== ENCOUNTER → 2025-07-25 12:03 | Outpatient (REF) | payer OTHER, SELFPAY ==
[2025-07-25 15:54] LABS: Hematocrit 34.2 % (37.0-47.0); Hemoglobin 10.8 g/dL (12.0-16.0); Mean Corp Hgb Conc. 31.6 g/dL (33.0-37.0); Mean Corpuscular Volume 87.9 fL (81.0-99.0); Nucleated Red Blood Cells % 0 %; Platelet Count 363 10^3/uL (130-400); Red Cell Dist. Width 15.5 % (11.5-14.5)
[2025-07-25 15:57] LABS: INR 3.56; PT 35.3 Sec (11.4-14.6)
[2025-07-25 16:17] LABS: Iron 49 ug/dl (37-170)
[2025-07-25 16:27] LABS: Total Iron Binding Capacity 339 ug/dl (265-497)
[2025-07-25 17:03] LABS: Ferritin 47.0 ng/ml (11.1-264.0)
== END ==
LOC: HWRCS 12:03
PROVIDERS: ATTENDING PHYSICIAN Nurse Practitioner; FAMILY PHYSICIAN Emergency Medicine; OTHER PHYSICIAN Internal Medicine Hematology & Oncology; REFERRING PHYSICIAN Internal Medicine Cardiovascular Disease
DX: I25.10 Atherosclerotic heart disease of native coronary artery without angina pectoris (principal); I50.32 Chronic diastolic (congestive) heart failure; I34.2 Nonrheumatic mitral (valve) stenosis; I34.0 Nonrheumatic mitral (valve) insufficiency; Z79.01 Long term (current) use of anticoagulants; C50.111 Malignant neoplasm of central portion of right female breast; E83.50 Unspecified disorder of calcium metabolism; D53.9 Nutritional anemia, unspecified; D68.9 Coagulation defect, unspecified; E55.9 Vitamin D deficiency, unspecified; Z51.11 Encounter for antineoplastic chemotherapy; M81.0 Age-related osteoporosis without current pathological fracture; D50.0 Iron deficiency anemia secondary to blood loss (chronic); D50.9 Iron deficiency anemia, unspecified; R13.10 Dysphagia, unspecified
CPT/HCPCS: 36415; 82728; 83540; 83550; 85025; 85610; 93306

== ENCOUNTER → 2025-08-01 14:43 | Outpatient (REF) | payer OTHER, SELFPAY | LOC: HWRAD 14:43 | PROVIDERS: ATTENDING PHYSICIAN Student in an Organized Health Care Education/Training Program | DX: M25.552 Pain in left hip (principal) | CPT/HCPCS: 73502 ==

== ENCOUNTER → 2025-08-02 15:26 | Outpatient (REF) | payer OTHER, SELFPAY ==
[2025-08-02 15:33] LABS: Hematocrit 35.5 % (37.0-47.0); Hemoglobin 11.2 g/dL (12.0-16.0); Mean Corp Hgb Conc. 31.5 g/dL (33.0-37.0); Mean Corpuscular Volume 87.9 fL (81.0-99.0); Platelet Count 417 10^3/uL (130-400); Red Cell Dist. Width 15.6 % (11.5-14.5)
== END ==
LOC: OIDL 15:26
PROVIDERS: ATTENDING PHYSICIAN Internal Medicine Hematology & Oncology
DX: C50.111 Malignant neoplasm of central portion of right female breast (principal); E83.50 Unspecified disorder of calcium metabolism; D53.9 Nutritional anemia, unspecified; D68.9 Coagulation defect, unspecified; E55.9 Vitamin D deficiency, unspecified; Z51.11 Encounter for antineoplastic chemotherapy; M81.0 Age-related osteoporosis without current pathological fracture; D50.0 Iron deficiency anemia secondary to blood loss (chronic); Z79.01 Long term (current) use of anticoagulants; C50.012 Malignant neoplasm of nipple and areola, left female breast; D50.9 Iron deficiency anemia, unspecified; R13.10 Dysphagia, unspecified
CPT/HCPCS: 85025

== ENCOUNTER → 2025-08-03 11:31 | Outpatient (REF) | payer OTHER, SELFPAY ==
[2025-08-03 16:18] LABS: INR 3.57; PT 35.9 Sec (11.4-14.6)
== END ==
LOC: HWLAB 11:31
PROVIDERS: ATTENDING PHYSICIAN Internal Medicine Cardiovascular Disease
DX: Z79.01 Long term (current) use of anticoagulants (principal)
CPT/HCPCS: 36415; 85610

== ENCOUNTER → 2025-08-09 16:08 | Outpatient (REF) | payer OTHER, SELFPAY ==
[2025-08-09 15:16] LABS: Hematocrit 35.6 % (37.0-47.0); Hemoglobin 11.1 g/dL (12.0-16.0); Mean Corp Hgb Conc. 31.2 g/dL (33.0-37.0); Mean Corpuscular Volume 90.1 fL (81.0-99.0); Platelet Count 395 10^3/uL (130-400); Red Cell Dist. Width 17.7 % (11.5-14.5)
== END ==
LOC: OIDL 16:08
PROVIDERS: ATTENDING PHYSICIAN Nurse Practitioner Adult Health
DX: C50.111 Malignant neoplasm of central portion of right female breast (principal); E83.50 Unspecified disorder of calcium metabolism; D53.9 Nutritional anemia, unspecified; D68.9 Coagulation defect, unspecified; E55.9 Vitamin D deficiency, unspecified; Z51.11 Encounter for antineoplastic chemotherapy; M81.0 Age-related osteoporosis without current pathological fracture; D50.0 Iron deficiency anemia secondary to blood loss (chronic); Z79.01 Long term (current) use of anticoagulants; C50.012 Malignant neoplasm of nipple and areola, left female breast; D50.9 Iron deficiency anemia, unspecified; R13.10 Dysphagia, unspecified
CPT/HCPCS: 85025

== ENCOUNTER → 2025-08-10 12:34 | Outpatient (REF) | payer OTHER, SELFPAY ==
[2025-08-10 15:46] LABS: INR 4.64; PT 43.8 Sec (11.4-14.6)
== END ==
LOC: HWLAB 12:34
PROVIDERS: ATTENDING PHYSICIAN Internal Medicine Cardiovascular Disease
DX: Z79.01 Long term (current) use of anticoagulants (principal)
CPT/HCPCS: 36415; 85610

== ENCOUNTER → 2025-08-16 07:04 | Outpatient (REF) | payer OTHER, SELFPAY ==
[2025-08-16 09:40] LABS: INR 2.38; PT 26.0 Sec (11.4-14.6)
== END ==
LOC: HWLAB 07:04
PROVIDERS: ATTENDING PHYSICIAN Internal Medicine Cardiovascular Disease
DX: Z95.2 Presence of prosthetic heart valve (principal); Z79.01 Long term (current) use of anticoagulants
CPT/HCPCS: 36415; 85610

== ENCOUNTER → 2025-08-22 09:16 | Outpatient (REF) | payer OTHER, SELFPAY ==
[2025-08-22 09:28] LABS: Hematocrit 39.4 % (37.0-47.0); Hemoglobin 12.2 g/dL (12.0-16.0); Mean Corp Hgb Conc. 31.0 g/dL (33.0-37.0); Mean Corpuscular Volume 91.0 fL (81.0-99.0); Platelet Count 352 10^3/uL (130-400); Red Cell Dist. Width 18.9 % (11.5-14.5)
== END ==
LOC: CLAB 09:16
PROVIDERS: ATTENDING PHYSICIAN Nurse Practitioner Adult Health
DX: C50.111 Malignant neoplasm of central portion of right female breast (principal); E83.50 Unspecified disorder of calcium metabolism; D53.9 Nutritional anemia, unspecified; E55.9 Vitamin D deficiency, unspecified; Z51.11 Encounter for antineoplastic chemotherapy; M81.0 Age-related osteoporosis without current pathological fracture; D50.0 Iron deficiency anemia secondary to blood loss (chronic); Z79.01 Long term (current) use of anticoagulants; C50.012 Malignant neoplasm of nipple and areola, left female breast; D50.9 Iron deficiency anemia, unspecified; R13.10 Dysphagia, unspecified
CPT/HCPCS: 85025

== ENCOUNTER → 2025-08-23 13:05 | Outpatient (REF) | payer OTHER, SELFPAY ==
[2025-08-23 16:14] LABS: INR 2.88; PT 30.1 Sec (11.4-14.6)
== END ==
LOC: HWLAB 13:05
PROVIDERS: ATTENDING PHYSICIAN Internal Medicine Cardiovascular Disease
DX: Z95.2 Presence of prosthetic heart valve (principal); Z79.01 Long term (current) use of anticoagulants
CPT/HCPCS: 36415; 85610

== ENCOUNTER 2025-09-04 05:43 | Inpatient (IN) | payer OTHER, MEDICARE, SELFPAY ==
[2025-09-03 23:50] VITALS: BP 130/50
[2025-09-03 23:56] VITALS: BP 130/50
[2025-09-04] VITALS (29 sets, daily range): BP systolic 64–186; BP diastolic 35–63; BMI 17.6
[2025-09-04] MEDS: ZOFRAN 4 MG IV ×2 (00:24→13:54)
[2025-09-04] MEDS: MORPHINE SULFATE 4 MG IV (00:24)
[2025-09-04 00:26] LABS: ALT (SGPT) 25 U/L (0-35); AST (SGOT) 38 U/L (14-36); Albumin 3.8 g/dl (3.5-5.0); Alkaline Phosphatase 157 U/L (38-126); Blood Urea Nitrogen 50 mg/dl (7-17); Calcium 9.0 mg/dl (8.4-10.2); Carbon Dioxide 25 mmol/L (22-30); Chloride 107 mmol/L (98-107); Estimated Creatinine Clearance 23 ml/min; Glucose 123 mg/dl (70-99); Potassium 3.7 mmol/L (3.5-5.1); Sodium 141 mmol/L (135-145); Total Protein 9.3 g/dl (6.3-8.2); eGFR 40.22
[2025-09-04 00:38] LABS: Troponin I 0.023 ng/ml
[2025-09-04 01:25] LABS: Hematocrit 37.7 % (37.0-47.0); Hemoglobin 12.3 g/dL (12.0-16.0); Mean Corp Hgb Conc. 32.6 g/dL (33.0-37.0); Mean Corpuscular Volume 87.1 fL (81.0-99.0); Nucleated Red Blood Cells % 0.2 %; Platelet Count 311 10^3/uL (130-400); Red Cell Dist. Width 20.3 % (11.5-14.5)
--- NOTE | 2025-09-04 02:31 | ED.GENMED ---
History of Present Illness
General
Chief Complaint: Musculo-Skeletal Complaint
Source: patient and spouse
Exam Limitations: none
Time Seen by Provider: 09/04/25 00:10
History of Present Illness
History of Present Illness:
Note:
CHIEF COMPLAINT(S)
Severe pain in the right pelvic area.
HISTORY OF PRESENT ILLNESS
The patient is a 69-year-old female with a history of heart failure, presenting with severe pain in the right pelvic area. Approximately four weeks ago, the patient reports tearing a muscle in her right pelvic region and subsequently received a
steroid injection. The pain was exacerbated tonight after she quickly patricia from a recliner and placed her foot on the floor, causing an immediate and severe increase in pain. She describes the pain as being so severe that she cannot move her leg or
roll over in bed. The pain radiates down to her groin and along the side of her thigh. The patient reports a previous X-ray and an MRI, though specifics were not available, and her is obtaining these records.
The patient also mentioned experiencing chest pain and trouble breathing at the scene, for which she was administered nitroglycerin by emergency medical services, which alleviated her chest pain. She acknowledges a history of end-stage heart
failure, a metal aortic valve, and cardiac damage due to past radiation therapy.
SOCIAL DETERMINANTS AFFECTING HEALTH
The patient notes financial constraints affecting her healthcare, mentioning that past treatments and tests were obtained through private facilities, likely due to cost or insurance barriers.
REVIEW OF SYSTEMS
- Cardiovascular: Previous chest pain tonight, relieved with nitroglycerin, history of heart failure.
- Musculoskeletal: Severe pain in the right pelvic area radiating to the groin, inability to move the leg or roll over in bed.
- Respiratory: Trouble breathing associated with chest pain, resolved post-nitroglycerin administration.
PHYSICAL EXAM
General: Alert, no acute distress.
Skin: Warm, dry.
Head: Normocephalic, atraumatic.
Neck: Supple, trachea midline.
Eye Ears, nose, mouth, and throat: Oral mucosa moist.
Cardiovascular: Regular with a metallic S2 click. No peripheral edema.
Respiratory: Breath sounds clear on auscultation.
Gastrointestinal: Abdomen nondistended.
Back: Normal range of motion, normal alignment.
Musculoskeletal: Tenderness medial to the left greater trochanter. Severe pain with any attempted range of motion in the hip.
Neurological: Alert and oriented.
Psychiatric: Cooperative, appropriate mood and affect.
PLAN
- Obtain and review previous X-ray and MRI results brought by the patients .
- Repeat X-ray to assess for any further damage.
- Administer pain control, including the consideration of morphine for severe pain relief.
- Evaluate cardiac enzymes and function owing to past chest pain and history of heart failure.
- Coordinate with the patients veterans service representative for further management of her cardiac condition, with particular attention to her unique history of radiation-induced cardiac damage.
DIFFERENTIAL DIAGNOSIS
The Differential Diagnosis includes, in no particular order and is not limited to:
1. Muscle strain or tear
2. Pelvic fracture
3. Trochanteric bursitis
4. Hip arthritis
5. Gluteal tendinopathy
6. Piriformis syndrome
7. Sciatica
8. Inflammatory arthritis
9. Septic arthritis
10. Metastatic bone disease
Disposition:
SUMMARY OF ENCOUNTER
The patient is a 69-year-old female with a history of a previous diagnosis of a gluteal tear, presenting with severe left hip pain similar to the initial injury, previously managed with a steroid injection. Upon reassessment, the patient continues
to experience persistent pain and difficulty with hip movement, severely limiting mobility. Imaging including a hip and pelvic X-ray revealed no fractures. Laboratory findings showed leukocytosis with a WBC count of 18.9 and a left shift of 94%,
suggesting a possible infection. The patient has chronic kidney disease with a creatinine level of 1.4, consistent with her baseline. Initial troponin levels were negative despite prior chest pain, and BNP was slightly elevated, which is typical for
her. She denies fever, urinary symptoms, or ongoing chest pain. Given the leukocytosis, urinalysis and cultures are ordered. Consideration for orthopedics consultation and physical therapy evaluation is planned if her mobility does not improve.
DISPOSITION
Admit.
ASSESSMENT
Persistent severe hip pain; possible infection indicated by leukocytosis, history of chronic conditions including chronic kidney disease and heart failure.
PLAN
- Admit for further evaluation and management.
- Continue pain control measures.
- Initiate urinalysis and cultures to investigate possible infection.
- Consider orthopedic consultation if pain persists.
- Evaluate need for physical therapy assessment and possible placement if mobility does not improve.
- Monitor laboratory results and repeat troponin levels.
INDEPENDENT REVIEW OF LABS AND INTERPRETATION OF TESTS
My independent review of CBC is leukocytosis with a WBC count of 18.9 and a left shift of 94%.
My independent review of CMP indicates chronic kidney disease with a creatinine of 1.4, which is baseline for the patient.
My independent review of troponin is negative.
My independent review of BNP indicates a slight elevation, consistent with chronic findings for the patient.
MEDICATION RECONCILIATION
Administered medications for pain control (specific medications not listed).
MEDICAL DECISION MAKING
-Complexity of Data Reviewed: Chronic conditions affecting care including gluteal tear, chronic kidney disease, previous history of breast cancer, and heart failure. Differential diagnosis includes muscle strain or tear, pelvic fracture,
trochanteric bursitis, hip arthritis, gluteal tendinopathy, piriformis syndrome, sciatica, inflammatory arthritis, septic arthritis, metastatic bone disease.
-Data:
Category 1
Non-emergency department records reviewed, including the patients baseline creatinine for chronic kidney disease.
Category 2
Urinalysis and cultures ordered to rule out infection due to leukocytosis.
-Risk:
Prescription medication was prescribed for pain management.
Care significantly affected by Social Determinants of Health: Financial constraints affecting healthcare accessibility.
DIAGNOSIS
gluteus tear; Gluteal Tendinopathy (M76.01), Chronic Kidney Disease Stage 3 (N18.30), Leukocytosis, unspecified (D72.829).
Past History
Past History
ED Past Medical History: Cancer (Hodgkin's lymphoma, breast), CVA, GERD, HTN, Valvular disease and Hypothyroidism
ED Past Surgical History: Cardiac (Mechanical aortic valve replacement), , Orthopedic and Other (Thyroidectomy, splenectomy, mastectomy)
Patient has exhibited threatening behavior?: No
PSI?: No
Social History
Tobacco: Non-smoker
Alcohol: None
Drug: None
Personal:
Living: with family
Employment: Employed
Family History
Family History: Other (Noncontributory)
Phy Exam
Physical Exam
Physical Exam:
.
Course
Orders/Labs/Results
Orders:
Orders
09/03/25 23:49
Electrocardiogram (*1) Urgent
Reason for Study: Chest Pain
CMP [Comprehensive Metabolic Panel] Urgent
Complete Blood Count/With Diff Urgent
NT-proBNP Urgent
Troponin I Urgent
09/03/25 23:50
EKG- Treatment ONCE
09/04/25 00:20
Morphine Sulfate 4 mg IV NOW STA
Ondansetron Injectable [Zofran] 4 mg IV NOW STA
Hip, Left 2-3 Views [CR Hip - LT w/wo Pel 2-3 Vw*] Urgent
Comment:
Reason For Exam: pain after stepping down
Include a pelvis x-ray?: Yes
09/04/25 01:39
Urinalysis Reflex To Culture Urgent
Date Specimen was Collected: 09/04/25
Time Specimen was Collected: 02:21
09/04/25 02:05
EKG- Treatment ONCE
09/04/25 02:30
Lactic Acid Q4H
Comment: CANCEL 2nd LACTIC ACID IF 1st LACTIC ACID IS LESS THAN 2
Blood Culture Q30M
VANDANA Source: Blood/Venous
Specimen Description:
09/04/25 03:00
Electrocardiogram (*1) Urgent
Reason for Study: Chest Pain
Troponin I Urgent
Blood Culture Q30M
VANDANA Source: Blood/Venous
Specimen Description:
09/04/25 06:30
Lactic Acid Q4H
Comment: CANCEL 2nd LACTIC ACID IF 1st LACTIC ACID IS LESS THAN 2
Abnormal Lab Results
09/04/25
00:03
WBC 18.9 H 10^3/uL
(4.8-10.8)
MCHC 32.6 L g/dL
(33.0-37.0)
RDW 20.3 H %
(11.5-14.5)
MPV 11.0 H fL
(7.4-10.4)
Abs Immat Gran (auto) 0.4 H 10^3/uL
(0-0.05)
Absolute Neuts (auto) 17.9 H 10^3/uL
(1.4-6.5)
Absolute Lymphs (auto) 0.3 L 10^3/uL
(1.2-3.4)
Immature Gran % 2.0 H %
(0-0.5)
Neutrophils % 94.4 H %
(42.2-75.2)
Lymphocytes % 1.5 L %
(20.5-51.1)
Monocytes % 1.3 L %
(1.7-9.3)
BUN 50 H mg/dl
(7-17)
Creatinine 1.4 H mg/dL
(0.6-1.0)
Glucose 123 H mg/dl
(70-99)
AST 38 H U/L
(14-36)
Alkaline Phosphatase 157 H U/L
(38-126)
Total Protein 9.3 H g/dl
(6.3-8.2)
09/04/25 00:03
09/04/25 00:03
Vital Signs
Initial and Last Documented VS:
Initial Vital Signs
Pulse Resp
93 21
09/03/25 23:49 09/03/25 23:49
Last Documented Vital Signs
Temp Pulse Resp BP Pulse Ox
98.2 F 80 18 95/38 93
09/04/25 02:06 09/04/25 02:01 09/04/25 02:01 09/04/25 02:01 09/04/25 01:56
*Pulse Oximetry
SaO2: 96
Oxygen Mode of Delivery: Room air
Patient hypoxic: no
*Critical Care Note
Total Time (30-74mins, 75-104mins- exclusive of procedures): Not Applicable
ED Attending Note
-
Portions of this chart may have been created with voice recognition software.� Occasional wrong word or��sound alike� substitutions may have occurred due to the inherent limitations of voice recognition software.
Discharge Plan
Departure
Admit to: Med/Surg
Presentation/result/management discussed w/ accepting MD/DO: Hospitalist
Discharge Problem:
gluteus tear, Leukocytosis, Breast cancer, Chronic kidney disease
Prescriptions:
No Action
levothyroxine 88 MCG tablet
88 mcg PO DAILY AT 0700
Patient Comments:
10/24/24--MUST BE BRAND NAME SYNTHROID Pt advised to have family/spouse bring in her Synthroid from home.
metoprolol succinate 50 mg tablet extended release 24 hr
50 mg PO BID
furosemide 40 mg tablet
40 mg PO MOWEFR@0800
lorazepam 0.5 mg tablet
0.5 mg PO BIDPRN PRN (Reason: anxiety)
furosemide [Lasix] 20 mg Tablet
20 mg PO SUTUTHSA@0800
Artificial Tears (PF) Dropperette
1 drp BOTH EYES QIDPRN PRN (Reason: dry eye)
pantoprazole [Protonix] 40 mg tablet,delayed release (DR/EC)
40 mg PO DAILY
warfarin 1 mg tablet
2.5 mg PO DAILY
Referrals:
Melanie Haynes MD [Family Provider, Internal Medicine]
Interventions
Interventions:
*Risk Screen - Suicide Last Done: 09/03/25 23:50
*General Assessment Last Done: 09/03/25 23:50
*Neglect/Abuse Screening Last Done: 09/03/25 23:50
*ED- Fall Risk Assessment Last Done: 09/03/25 23:50
*ED COVID-19 Vaccine History Last Done: 09/03/25 23:50
*ED Influenza Vaccine History Last Done: 09/03/25 23:50
ED- Cardiac Assessment Last Done: 09/04/25 00:08
ED-Musculoskeletal Assessment Last Done: 09/04/25 00:08
Discharge Date and Time
Print Language: KHMER
[2025-09-04 03:08] LABS: Urine Character Clear (Clear)
[2025-09-04 03:10] LABS: INR 2.38; PT 26.0 Sec (11.4-14.6)
[2025-09-04 03:20] LABS: Urine Red Blood Cell 0-2 /HPF (0-2)
[2025-09-04 03:33] LABS: Troponin I 0.025 ng/ml
--- NOTE | 2025-09-04 05:31 | HPS.HSE ---
Family Physician
-
Family Physician: Melanie Haynes MD
Chief Complaint
-
L Hip Pain
History of Present Illness
Patient is a 69y F with PMH significant for Aortic Stenosis s/p Mechanical Valve Replacement on Coumadin, Hodgkins' Lymphoma s/p XRT, Breast Cancer, Hypertension and Hypothyroidism who presents to ED complaining of L hip pain. Patient states
that she initially developed the hip pain about one month ago. She bumped into a door frame while rushing to bathroom. A day or two later, she stepped down hard / awkwardly off of a step-stool and 'sander' her L hip. Since that time she had
steadily worsening pain in the L lateral hip area and difficulty walking. She was seen by Ortho and underwent x-ray and then MRI. Was found to have evidence of gluteus tear (? which). Patient notes that she received a localized steroid injection
about 10 days ago. She had fairly significant improvement in her pain over the past week.
Yesterday the patient drove an hour and then sat to watch a three hour show and then drove another hour home. When she got up from a seated position later in the evening, she noted severe increase in her pain.
Pain was in same location - lateral hip / greater trochanter region. Pain radiated into the groin and down the anterior thigh.
Patient notes that she was unable to stand, walk or even move her leg without severe pain. She presented to the ED for further evaluation.
Medical History
Past Medical History
Past Medical History: Reports Other
Additional Past Medical History:
Hodgkin's Lymphoma (1970s) - XRT
Hypothyroidism
Breast Cancer
Hypertension
Aortic Stenosis (secondary to XRT)
CVA - presumed embolic - 2021
Chronic HFpEF
Pulmonary Hypertension
GI Blood Loss (unclear source)
CKD III
Past Surgical History: Reports Other
Additional Past Surgical History:
Mechanical AVR (pediatric valve) - 2006
Splenectomy
Mastectomy
Thyroidectomy
Social History
Tobacco: Non-smoker
Alcohol: None
Drug: None
Family History
Family History: Not pertinent
Allergies / Home Medications
Allergies reflects when Allergies were last updated in [facility].
Home Medications with original date entered in [facility]
Allergy/Medication List:
Allergies
Allergy/AdvReac Type Severity Reaction Status Date / Time
palbociclib (From Machine Safety Manangement) Allergy Tongue Verified 09/04/25 00:10
Swelling
Penicillins Allergy throat Verified 09/04/25 00:10
swelling-
tolertates
amoxicillin
tramadol Allergy throat Verified 09/04/25 00:10
swelling
Home Medications
levothyroxine 88 mcg tablet 88 mcg PO DAILY AT 0700 Thyroid 07/16/21
metoprolol succinate 50 mg tablet,extended release 24 hr 50 mg PO BID Blood Pressure 10/24/24
furosemide 20 mg tablet (Lasix) 20 mg PO SUTUTHSA@0800 Fluid Retention/Swelling 05/06/25
furosemide 40 mg tablet 40 mg PO MOWEFR@0800 Fluid Retention/Swelling 05/06/25
lorazepam 0.5 mg tablet 0.5 mg PO BIDPRN PRN anxiety 05/06/25
dextran 70-hypromellose eye drops in a dropperette (Artificial Tears (PF) drops in a dropperette) 1 drp BOTH EYES QIDPRN PRN dry eye 05/27/25
pantoprazole 40 mg tablet,delayed release (Protonix) 40 mg PO DAILY Gastrointestinal Issue 05/27/25
warfarin 1 mg tablet 2.5 mg PO DAILY 09/04/25
Review of Systems
-
History Source: Patient
A 12 point ROS was completed and negative except as noted: Yes
Constitutional: Reports Weight Loss and Fatigue; Denies Fever or Chills
EENT: Reports Other (dry mouth)
Respiratory: Denies Cough or Trouble Breathing
Cardiac: Denies Chest Pain or Palpitations
Abdomen/GI: Denies Abdominal Pain, Nausea, Vomiting or Diarrhea
: Denies Dysuria or Frequency
Musculoskeletal: Reports Joint Pain; Denies Edema
Neurological: Denies Dizzy or Headache
Physical Exam
Vital Signs
Vital Signs
Temp Pulse Resp BP Pulse Ox
98.2 F 65 18 82/35 96
09/04/25 02:06 09/04/25 05:00 09/04/25 05:00 09/04/25 05:00 09/04/25 02:37
Physical Exam
General: Other (Frail, chronically ill-appearing female in no acute distress.)
HEENT: Other (Dry MM. )
Respiratory: Other (Decreased at bases - otherwise clear.)
Cardiac: S1/S2 (Mechanical S2), Regular Rhythm and Murmur (II/ AMMY)
GI: Soft, Non Tender, Non Distended and Normal Bowel Sounds
Musculoskeletal: No Clubbing, No Cyanosis, No Edema and Other (Pinpoint tenderness over the L greater trochanter area. Pain with any ROM at the hip.)
Neuro: AO x 3
Laboratory Results
-
09/04/25 00:03
09/04/25 00:03
Laboratory Results
PT 26.0 Sec (11.4-14.6) H 09/04/25 02:51
INR 2.38 09/04/25 02:51
Lactic Acid 1.4 mmol/L (0.7-2.0) 09/04/25 02:51
Total Bilirubin 0.4 mg/dl (0.2-1.3) 09/04/25 00:03
AST 38 U/L (14-36) H 09/04/25 00:03
ALT 25 U/L (0-35) 09/04/25 00:03
Alkaline Phosphatase 157 U/L (38-126) H 09/04/25 00:03
Troponin I 0.025 ng/ml 09/04/25 02:51
Impression/Plan
-
A/P: Patient is a 69y F with PMH significant for breast cancer not on active treatment, mechanical AVR on Coumadin and CKD who presents to ED complaining of L hip pain.
Left Hip Pain
- Admit for further evaluation and treatment.
- Recently underwent localized injection for gluteus tear / bursitis and got temporary symptom relief.
- Now with recurrent / increased pain.
- X-rays unchanged / no evidence of fracture.
- pain control / supportive care.
- PT / OT evaluations.
- Ortho eval for additional recommendations / ? repeat injection therapy.
Hypotension
- BP low in the ED - though patient perfectly awake, alert and mentating appropriately.
- Suspect this is due to morphine administered for pain.
- IVF bolus for now.
- Hold Lasix acutely.
- Follow for improvement.
ASCVD
- Prior [place], CVA with L sided weakness.
- Continue Coumadin.
- Continue metoprolol with holding parameters to avoid hypotension.
Mechanical Aortic Valve
- Continue Coumadin. Follow daily INR and adjust if needed.
CKD III
- Renal function appears to be at / near recent baseline.
- Follow for changes.
Chronic HFpEF
- Patient does not appear volume overloaded.
- Hold Lasix acutely as noted above.
- Follow I/Os, daily weights, etc.
Hypothyroidism
- Continue current T4 supplementation.
Stage III Breast Cancer
- Not on active therapy since October.
- Significant weight loss over the past 6-12 months.
- Dietary evaluation. Supportive care.
DVT prophylaxis: On Coumadin
Code Status: DNR
[2025-09-04] MEDS: NSS 500 IV (05:36)
[2025-09-04] MEDS: TORADOL 10 MG IV (07:17)
[2025-09-04] MEDS: PROTONIX 40 MG PO (08:15)
[2025-09-04] MEDS: SYNTHROID 88 MCG PO (08:15)
--- NOTE | 2025-09-04 08:19 | W.PN.HOSP.TC ---
Addendum entered and electronically signed by Evelin Rodriguez MD 09/05/25 00:40:
Correction INR subtherapeutic 2.38
Goal INR Mechanical Aortic Valve Replacement 2.5-3.0
Holding off on hep gtt for now given concerns active bleeding
Significant drop in Hgb noted 12.3 to 7.9, 1PRBC transfusion ordered
Goal Hgb>8
Original Note:
Today's Communication/Plan
-
see a/p
Assessment / Plan
Assessment / Plan
Physical Exam
General: Lethargic
HEENT: dry oral mucosa
Respiratory: clear to auscultation b/l
Cardiac: S1/S2 (Mechanical S2), Regular Rhythm and Murmur (II/ AMMY)
GI: Soft, Non Tender, Non Distended and Normal Bowel Sounds
Musculoskeletal: No Clubbing, No Cyanosis, No Edema and Other (Pinpoint tenderness over the L greater trochanter area. Pain with any ROM at the hip.)
Neuro: Lethargic arousable disoriented x3 (oriented x3 earlier in day)
69F Breast Ca not on active treatment (follows w/ Dr Amaral) CKD III s/p AVR on Coumadin Hx Hodgkin's Lymphoma Hypothyroidism HFpEF originally presented for evaluation acute on chronic Left Hip pain evaluated and treated by orthopedic with
steroid injection. Hospital course complicated with blood cultures pos for Strep pyogenes (drawn in ED). Sepsis not present on presentation. Initial White count elevation noted attributed to recent steroid injection. Started on Cefazolin renally
dosed (Patient had also developed [place] on CKD III d/t poor oral intake and nausea/vomiting). CT Head Abd/pelvis were obtained for further evaluation AMS nausea/vomiting. On return from CT, patient's mental status had rapidly deteriorated prompting
rapid response transfer to ICU. CT head radiology report was concerning for possible brain metastasis with associate edema. However Neurology reviewed imaging and suspect likely old stroke. In ICU patient was noted to be febrile 101.2 with
associate tachycardia. Mental status deterioration most likely due to developing sepsis, BP stable. Situation further complicated with coffee ground vs bilious emesis. NGT placed for decompression and protonix gtt started given hx GIB.
09/04/25 Rapid Response Deteriorating Mental Status 2/2 Developing Severe Sepsis (Leukocytosis, Tachycardia, Fever, end organ damage CH[place])
Acute Metabolic Encephalopathy
Transferred to ICU
Blood Cx's drawn in ED pos for Strep Pyogenes
Started on Renally dose Cefazolin per discussion with ID
ID eval
[employer] eval
IVF support
Tylenol prn Fever
CT head radiology report concerning for possible Metastatic Dz
per discussion with neurology, suspect CT finding more likely old stroke, steroids for possible metastatic edema subsequently were never given/canceled
Neuro Checks
Neurology Eval
Pending MRI brain w/wo contrast
N/V
Possible Coffee Ground Emesis vs Bilious Emesis
Hx GIB
09/04 NGT placed to suction w/ relief symptoms
CT abd/pelvis w/o contrast limited study noted possible gastric outlet obstruction vs gastroparesis
started on Protonix gtt for possible GIB
H&H stable, cont to monitor, transfuse if Hgb<8
GI eval
Acute on CKDIII
likely pre-renal poor oral intake nausea vomiting as above
IVF support
avoid nephrotoxins, prn Toradol discontinued
monitor renal function
Mechanical Aortic Valve Replacement on Coumadin
HFpEF (recent ECHO EF 55-60%)
ASCVD
Prior DE, CVA with L sided weakness.
-INR therapeutic 2-3, unable to tolerate PO Coumadin at this time (N/V/AMS)
-consider hep gtt if INR falls below goal
-hold home Lasix given likely low volume [place]ina and sepsis as above
-PO metoprolol on hold, unable to tolerate PO at this time and permissive tachycardia for sepsis as above
Acute on Chronic Left Hip Pain
left hip greater trochanteric bursitis and gluteal tendinitis, follows Dr Caban
-Hip X-ray appreciated no acute fracture or dislocation
-Orthopedic eval appreciated steroid injection given 09/04/25
Hx Breast Ca not on treatment
-last treatment Lukasz
-follows with Dr Amaral, recently received outpt IV iron infusions for anemia
DVT ppx SCD
DNR as per POA Uziel
Total Critical Care Time__50___ minutes. I was immediately available to the patient and staff. I personally examined, reviewed labs, diagnostic images/reports, interpretations, treatment plans, discussed patient care with other providers and
patient's Silvino ( patient unable to make decisions at this time), entered orders as appropriate and documented the medical record.
Anticipated Discharge: > 48 hours
Subjective/Interval History
-
Date of Service: September 04, 2025
Seen and examined earlier in the day. Reported improvement in hip pain since steroid injection. Had episode nausea vomiting lethargy but remain arousable Oriented x3. Mental status however deteriorated as day progressed, rapid response was called
and patient was transferred to ICU closer monitoring.
Objective Data
-
Labs:
Laboratory Results
09/04/25 09/04/25
00:03 02:51
WBC 18.9 H
Hgb 12.3
Hct 37.7
Plt Count 311
PT 26.0 H
INR 2.38
Sodium 141
Potassium 3.7
Chloride 107
Carbon Dioxide 25
BUN 50 H
Creatinine 1.4 H
Glucose 123 H
Calcium 9.0
Total Bilirubin 0.4
AST 38 H
ALT 25
Alkaline Phosphatase 157 H
Vital Signs:
Vital Signs
Temp Pulse Resp BP Pulse Ox
98.1 F 81 17 93/40 95
09/04/25 08:07 09/04/25 08:18 09/04/25 08:07 09/04/25 08:18 09/04/25 08:07
--- NOTE | 2025-09-04 11:23 | W.PN.UPDATE ---
Update Note
Progress Note Update
Full orthopedic consult dictated:
Patient is known to Dr. Robles for left hip greater trochanteric bursitis and gluteal tendinitis. August 24, 2025 she underwent steroid injection into the bursal region which improved her pain about 80%. She recently had a car ride and her left
hip pain has returned. She does not recall any injury. X-rays left hip negative for fracture or dislocation. She is afebrile and tenderness localized to the left abductor tendon and over the greater trochanter. Passive range of motion
nonpainful. Calf is soft and nontender. Distal neurovascular was intact. Today I did a injection of Kenalog 40 mg/mL and lidocaine 1% without epinephrine into the gluteal tendon at point of maximal tenderness. She is going to ice this vicinity
and continue with Toradol. Physical therapy will be ordered as well. Orthopedics to follow-up on her tomorrow but hopefully discharge if doing better.
[2025-09-04] MEDS: NSS 1000 IV ×2 (14:58→21:07)
--- NOTE | 2025-09-04 15:03 | CM ---
CM reviewed chart, patient seen bedside, initial assessment completed.
Patient is a 69 year old F with PMH significant for Aortic Stenosis s/p Mechanical Valve Replacement on Coumadin, Hodgkins' Lymphoma s/p XRT, Breast Cancer, Hypertension and Hypothyroidism who presents to ED complaining of L hip pain.
Patient lives with her in 2 story home, 1 OC.
Independent in ADLs, personal care and ambulation at baseline. No assistive devices, no DME.
Hx VN in past, no hx SNF.
Confirms prescription coverage.
PCP: Melanie Haynes
Pharmacy: [facility]
CM will continue to follow for all discharge planning needs.
Plan; home with , watch for PT/OT evals for further recommendations
[2025-09-04 15:33] LABS: Hematocrit 38.9 % (37.0-47.0); Hemoglobin 12.3 g/dL (12.0-16.0); Mean Corp Hgb Conc. 31.6 g/dL (33.0-37.0); Mean Corpuscular Volume 90.5 fL (81.0-99.0); Platelet Count 230 10^3/uL (130-400); Red Cell Dist. Width 21.2 % (11.5-14.5)
[2025-09-04] MEDS: ANCEF 5 IV (16:34)
[2025-09-04] MEDS: ANCEF IV (16:53)
[2025-09-04] MEDS: COMPAZINE 5 MG IV (17:08)
[2025-09-04 17:24] LABS: ALT (SGPT) 25 U/L (0-35); AST (SGOT) 37 U/L (14-36); Albumin 3.6 g/dl (3.5-5.0); Alkaline Phosphatase 129 U/L (38-126); Blood Urea Nitrogen 63 mg/dl (7-17); Calcium 8.8 mg/dl (8.4-10.2); Carbon Dioxide 23 mmol/L (22-30); Chloride 106 mmol/L (98-107); Estimated Creatinine Clearance 16 ml/min; Glucose 116 mg/dl (70-99); Magnesium 1.8 mg/dl (1.6-2.3); Potassium 5.0 mmol/L (3.5-5.1); Sodium 136 mmol/L (135-145); Total Protein 9.0 g/dl (6.3-8.2); eGFR 24.73
[2025-09-04 17:58] LABS: Glucose - Point of Care 123 mg/dl (70-99)
[2025-09-04] MEDS: DECADRON 10 MG IV (18:01)
--- NOTE | 2025-09-04 18:19 | PTCARENOTE ---
Patient returned from CAT scan at 1745, patient was unable to answer orientation questions which was a change in mental status from previous assessment. Pulse Ox was 88% on room air, so patient was placed on 4L NC. Vitals obtained 159/68, 88 bpm,
98.8 F, blood sugar 123. Rapid called and provider notified. Dr. Rodriguez initiated transfer to ICU.
--- NOTE | 2025-09-04 19:00 | PTCARENOTE ---
Received pt at rapid response and transferred to ICU bed 3361. Pt lethargic, only following some commands. NIH 12. Temp 101.2 ax. Sinus tach 110s. Lungs diminished. SpO2 97% on 2L NC. Pt vomited approximately 100ml coffee ground. NGT place
with 200 ml out immediately. Per report, pt has not voided today. Bladder scan 136ml. IVF per order. updated at bedside.
[2025-09-04] MEDS: PROTONIX 100 IV (20:05)
[2025-09-04] MEDS: OFIRMEV 100 IV (20:10)
--- NOTE | 2025-09-04 21:00 | W.PN.SEPSIS ---
Sepsis
Vital Signs
Temp Pulse Resp BP Pulse Ox
100 F 94 15 105/44 99
09/04/25 20:46 09/04/25 20:15 09/04/25 20:15 09/04/25 20:15 09/04/25 20:15
Physical Exam
Physical Exam:
A focused exam was performed after fluid resuscitation.
Capillary Refill
Bilateral Upper Extremity:
Chirag Time: Less than 3 sec
Bilateral Lower Extremity:
Chirag Time: Less than 3 sec
Pulse Evaluation
Bilateral Radial:
Pulse Evaluation: Present
Bilateral Dorsalis Pedis:
Pulse Evaluation: Present
[2025-09-04] MEDS: MAGNESIUM SULFATE 102 GRAMS IV (21:01)
--- NOTE | 2025-09-04 21:30 | PTCARENOTE ---
Report received from previous shift RN [id number]. Pt in bed with spouse at bedside. Pt is drowsy/lethargic w slow, garbled speech, wakens to verbal stimuli. Pupils equally reactive, generalized weakness noted. Tandem NIHSS performed w offgoing shift RN,
essentially unchanged. Lung sounds are decreased throughout, RR 20's, pox 94-95% on 2L O2 nasal cannula. Telemetry rhythm reveals ST, HR 110-120's, no edema noted, palpable peripheral pulses present. Knee high SCDs placed per order. +BS, abdomen
soft, R nare NGT in place to LIWS with brown output. No void at this time. Skin intact. L hand int flushed and patent, Protonix gtt per order. L AC int with IVF per order. Plan of care discussed w pt and pt's spouse. Will monitor closely.
[2025-09-04] MEDS: LEVOPHED 250 IV (22:02)
--- NOTE | 2025-09-04 22:30 | PTCARENOTE ---
Church catheter placed per MD order. 140 ml jeffery urine returned upon placement.
Rectal probe placed for temperature monitoring, 101 F.
Levophed infusion initiated to maintain MAP > 65mmHg, see flow sheet for titration details.
[2025-09-04 23:48] LABS: Hematocrit 24.4 % (37.0-47.0); Hemoglobin 7.9 g/dL (12.0-16.0)
[2025-09-05] VITALS (49 sets, daily range): BP systolic 99–161; BP diastolic 28–69; BMI 18.0
--- NOTE | 2025-09-05 00:30 | PTCARENOTE ---
All evening labwork results reviewed and discussed with LIA Nathan. New orders received. Pt continues to be drowsy/lethargic, wakens to verbal stimuli and responds appropriately. Repositioning pt Q2H for skin integrity. Will continue to monitor.
[2025-09-05] MEDS: PROTONIX 100 IV ×2 (04:32→17:37)
[2025-09-05] MEDS: LEVOPHED 250 IV (04:32)
[2025-09-05] MEDS: ANCEF 5 IV (04:50)
[2025-09-05 05:50] LABS: Hematocrit 40.1 % (37.0-47.0); Hemoglobin 13.3 g/dL (12.0-16.0); INR 2.94; Mean Corp Hgb Conc. 33.2 g/dL (33.0-37.0); Mean Corpuscular Volume 85.5 fL (81.0-99.0); PT 30.6 Sec (11.4-14.6); Platelet Count 165 10^3/uL (130-400); Red Cell Dist. Width 19.8 % (11.5-14.5)
[2025-09-05 05:51] LABS: APTT 56.1 Sec (23.4-35.0)
[2025-09-05] MEDS: NSS 1000 IV (06:23)
[2025-09-05] MEDS: SYNTHROID PO (06:23)
[2025-09-05 06:45] LABS: Blood Urea Nitrogen 47 mg/dl (7-17); Calcium 5.1 mg/dl (8.4-10.2); Carbon Dioxide 12 mmol/L (22-30); Chloride 119 mmol/L (98-107); Estimated Creatinine Clearance 23 ml/min; Glucose 156 mg/dl (70-99); HDL Cholesterol 17 mg/dl; Potassium 3.6 mmol/L (3.5-5.1); Sodium 136 mmol/L (135-145); Very Low Density Lipoprotein 19 mg/dl (0-30); eGFR 40.22
[2025-09-05 06:46] LABS: LDL Cholesterol, Calculated 25 mg/dl; Magnesium 1.7 mg/dl (1.6-2.3)
[2025-09-05 06:47] LABS: Hematocrit 25.6 % (37.0-47.0); Hemoglobin 8.7 g/dL (12.0-16.0); Mean Corp Hgb Conc. 34.0 g/dL (33.0-37.0); Mean Corpuscular Volume 86.5 fL (81.0-99.0); Platelet Count 120 10^3/uL (130-400); Red Cell Dist. Width 18.7 % (11.5-14.5)
--- NOTE | 2025-09-05 07:09 | CON.INTV ---
Consultation
Consultation Request
Date/Time Consultation Requested: 09/04/2025
Date/Time Consultation Performed: 09/05/2025
Reason for Consultation: Sepsis
Medical History
-
Chief Complaint: Hip pain
History of Present Illness:
Patient is a 69-year-old female who was admitted to the hospital on 09/04 with chief complaint of left hip pain. Patient had a hip x-ray performed on admission which was unrevealing without any evidence of fracture. Patient has a complex medical
history with prior history of Hodgkin's lymphoma treated with radiation, breast cancer, aortic stenosis s/p mechanical valve replacement on chronic Coumadin therapy as well as multiple episodes of GI bleed with unrevealing EGD and colonoscopy with
concern for small bowel AVMs. Patient has had blood transfusions in the past for anemia. Reportedly patient developed left pain on the hip area, couple of days prior to admission which has been steadily worsening. Patient was evaluated by
orthopedic surgery as outpatient and had a localized steroid injection about 10 days ago for suspected left hip greater trochanteric bursitis and gluteal tendinitis. Patient had another injection of Kenalog 40 mg along with lidocaine on 09/04.
Patient reports improved pain since. In view of recurrence of pain she presented to the emergency room.
Hospital course was complicated by increased lethargy, disorientation and altered mental status which prompted a CT head which was suggestive of a mass with edema suspicious for metastasis versus old stroke. Patient also noted to have elevated
lactate and subsequently positive blood cultures with Streptococcus pyogenes. In view of septic shock and altered mental status, patient had a rapid response event called and was transferred to ICU for further management. [employer] consultation
was requested for further input.
Past Medical History
Past Medical History: Reports Other
Additional Past Medical History:
Hodgkin's Lymphoma (1970s) - XRT
Hypothyroidism
Breast Cancer
Hypertension
Aortic Stenosis (secondary to XRT)
CVA - presumed embolic - 2021
Chronic HFpEF
Pulmonary Hypertension
GI Blood Loss (unclear source)
CKD III
Past Surgical History: Reports Other
Additional Past Surgical History:
Mechanical AVR (pediatric valve) - 2006
Splenectomy
Mastectomy
Thyroidectomy
Social History
Tobacco: Non-smoker
Alcohol: None
Drug: None
Family History
Family History: Not pertinent
Allergies / Home Medications
Allergies
Allergy/AdvReac Type Severity Reaction Status Date / Time
palbociclib (From [employer]) Allergy Tongue Verified 09/04/25 00:10
Swelling
Penicillins Allergy throat Verified 09/04/25 00:10
swelling-
tolertates
amoxicillin
tramadol Allergy throat Verified 09/04/25 00:10
swelling
Home Medications
�Medication �Instructions �Recorded �Confirmed �Last Taken �Type
levothyroxine 88 mcg tablet 88 mcg PO DAILY AT 0700 Thyroid 07/16/21 09/04/25 05/27/25 History
metoprolol succinate 50 mg 50 mg PO BID Blood Pressure 10/24/24 09/04/25 05/27/25 History
tablet,extended release 24 hr
furosemide 20 mg tablet (Lasix) 20 mg PO SUTUTHSA@0800 Fluid 05/06/25 09/04/25 05/26/25 History
Retention/Swelling
furosemide 40 mg tablet 40 mg PO MOWEFR@0800 Fluid 05/06/25 09/04/25 05/25/25 History
Retention/Swelling
lorazepam 0.5 mg tablet 0.5 mg PO BIDPRN PRN anxiety 05/06/25 09/04/25 05/26/25 History
dextran 70-hypromellose eye drops 1 drp BOTH EYES QIDPRN PRN dry eye 05/27/25 09/04/25 Unknown History
in a dropperette (Artificial Tears
(PF) drops in a dropperette)
pantoprazole 40 mg tablet,delayed 40 mg PO DAILY Gastrointestinal 05/27/25 09/04/25 05/27/25 History
release (Protonix) Issue
warfarin 1 mg tablet 2.5 mg PO DAILY Blood Clot 09/04/25 09/04/25 Unknown History
Prevention/Tx
Review of Systems
-
Hematologic/Lymphatic: Other (All 14 systems reviewed and negative except as stated above in the history of present illness.)
Vitals / Labs / Diagnostic Testing
Vital Signs
Temp Pulse Resp BP Pulse Ox
99.9 F 96 13 141/54 100
09/05/25 04:49 09/05/25 05:30 09/05/25 05:30 09/05/25 05:30 09/05/25 05:30
Lab Data
09/05/25 06:16
09/05/25 06:07
Laboratory Results
09/05/25
05:25
PT 30.6 H
INR 2.94
APTT 56.1 H
Microbiology
09/04/25 02:50 Blood/Venous Blood Culture - Preliminary
Streptococcus pyogenes
09/04/25 02:50 Blood/Venous Gram Stain - Final
09/04/25 02:50 Blood/Venous Blood Culture - Preliminary
Positive culture in progress
09/04/25 02:50 Blood/Venous Gram Stain - Final
Diagnostic Testing:
Physical Exam
-
HEENT: Normocephalic and Other (Cachectic appearing female not in any distress)
Cardiovascular: S1/S2
Respiratory: Clear
GI: Soft and Non Distended
Neurology: Awake, Alert and Other (Speech appeared garbled)
Skin: Warm
Assessment
-
#1. Septic shock with lactic acidosis
- Blood cultures positive for Strep Pyogenes. ? Etiology
- Recent diagnosis of greater trochanter bursitis/gluteal tendinitis s/p steroid injection. Also history of aortic valve replacement, need to evaluate for any endocarditis. Check echocardiogram
- Small right-sided pleural effusion noted, will perform [id number] ultrasound, if sufficient size noted, low threshold to perform thoracentesis to evaluate for any empyema. RLL pneumonia with empyema also in differential diagnosis considering
h/o coughing when eating per at bedside.
- Lactate elevated at 3.5, down trending. Follow-up VBG
- Wean Levophed as tolerated, target MAP > 65 mm
- Hyperchloremia noted, DC normal saline, switch to Ringer lactate infusion
- Replace low calcium
#2. Acute blood loss anemia, recurrent
- Coffee-ground emesis noted, NG tube in place, to low intermittent suction.
- Hb 12.3 > 7.9 > 8.7
- EGC and Colonoscopy in the past unrevealing for bleeding source. ?Small bowel AVMs.
- Continue PPI infusion, GI service on case
#3. Right sided pleural effusion
- POCUS suggestive of small to moderate effusion. Fibrin strand noted extending between lower border of lung and diaphragm.
- Plan for thoracentesis and fluid analysis, evaluate for empyema considering Strep Pyogenes bacteremia.
#4. [place] with underlying CKD.
- Cr peaked at 2.1, most recent 1.4.
- LR infusion, monitor labs
#5. Acute metabolic encephalopathy with Brain lesions, metastasis vs old CVA
- Will need MRI for further evaluation
- Septic shock also contributing to encephalopathy
- Garbled speech noted, neurology service on case
- INR is therapeutic, anticoagulation currently on hold
- Stroke, metastatic lesions, embolic lesion with bacteremia in differential diagnosis
#6. s/p AVR, mechanical valve
- Chronically on coumadin
- AC held in view of acute drop in Hb and concern for brain emboli with bacteremia.
- Check echocardiogram to valuate for any vegetations in view of bacteremia
#7. Pulmonary HTN
- RHC 10/2024, mPA 41, PCWP 22 with CI 2.5, PVR 5.8.
- Group II with h/o AVR, elevated PCWP. Also elevated PVR suggestive of concomitant pre-capillary Pulmonary HTN
Other medical diagnoses:
- H/o Breast cancer and Hodgkin's lymphoma
- HFpEF, LVEF 55-60%
- Hip pain, suspect tendonitis/bursitis
Hold anticoagulation in view of active bleeding.
PPI ongoing for GI prophylaxis.
Critical Care time 65 mins -- The patient is admitted for acute critical illness for the treatment of vital organ failure and/or prevention of further life-threatening conditions. Total care includes time spent in review of history, physical exam,
medications, hemodynamic/ventilator parameters, laboratory data, imaging and discussion with house staff, pharmacy, respiratory therapy, law secretary, and nursing.
Data:
CXR 08/2025: No acute disease of the chest.
Feeding tube placement as described above.
CT A/P 08/2025: Markedly limited CT of the abdomen and pelvis as a result of numerous factors, as detailed above, without findings to suggest intestinal obstruction or free air.
Air and fluid filled stomach, cannot exclude some gastric outlet obstruction or gastroparesis.
Cannot exclude some retroperitoneal/maria isabel hepatis lymphadenopathy, limited.
Small to moderate right pleural effusion and patchy bibasilar opacities which may be inflammatory/infectious.
CT Head 08/2025: At least 3 cm focus of decreased attenuation centered about the right sylvian fissure which could represent an intracranial mass with edema such as metastatic disease. Subacute to chronic infarct cannot be differentiated on this CT
without intravenous contrast. Recommend Brain MRI without and with contrast for more complete evaluation.
ECHO 07/2025: 1. Small left ventricle with normal wall thickness and preserved systolic function with septal contraction abnormality, EF 55-60%.
2. Mitral annular calcification, mitral leaflet thickening, at least moderate mitral regurgitation and mitral stenosis, peak/mean gradient 21/5 mmHg. Dilated left atrium.
3. Mechanical aortic valve replacement, peak/mean gradient 5/3 mmHg with trace aortic regurgitation.
4. Normal right heart with mild-moderate tricuspid regurgitation, pulmonary artery systolic pressure is 55 mmHg.
5. In October 2024 peak and mean aortic valve gradients were 17 and 10 mmHg, mitral regurgitation was mild to moderate with a mean gradient of 8 mmHg, and the pulmonary artery systolic pressure was 40-45 mmHg.
RHC & LHC 10/2024: RHC 10/2024, mPA 41, PCWP 22 with CI 2.5, PVR 5.8.
60-70% left main stenosis, inability to advance IVUS. 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
--- NOTE | 2025-09-05 07:13 | W.PN.UPDATE ---
Update Note
Progress Note Update
Rapid called on patient yesterday afternoon with subsequent transfer to ICU in sepsis. Responded nonverbally to questions with hand motions. Continue Tx per the primary team. Did have left gluteal tendon injection yesterday for assumed gluteal
tendonitis. Hip feeling much better this AM. Had recommended PT for the patient's left hip symptoms. Will follow peripherally at this time.
--- NOTE | 2025-09-05 07:48 | PTCARENOTE ---
[facility] done with off going shift. [facility] 9.
Critical lab work discussed with Dr. Greenfield this morning at bedside. 1g IV Calcium given. VBG orderd.
[2025-09-05] MEDS: CALCIUM GLUCONATE 100 IV ×2 (08:01→18:08)
[2025-09-05] MEDS: LR 1000 IV ×2 (08:01→23:35)
--- NOTE | 2025-09-05 08:05 | W.PN.HOSP.TC ---
Addendum entered and electronically signed by Richardson Hawthorne MD 09/05/25 21:23:
Attending Addendum-
I saw and evaluated the patient. I reviewed the resident�s note and agree with findings and plan as documented in the resident�s note. Sub: seen with present. per ptient much more clear today. Was transfered to ICU secondary to CIMS
and hypotension. Currently patient complaints of throat discomfort from NGT. Was febrile over last 24 hours. Full 12 point ROS reviewed and negative except as documented Exam: Vitals reviewed in chart GEN-mild distress HEENT NGT in place draining
black coffee ground Heart RRR no MRG Lungs CTA B/L Abd soft NT ND pos BS LE no edema, left hip TTP lynn in place
Plan:
# Septic Shock from Strep Throat likely with bacteremia
- blood cx pos x 2 GAS, check throat cx
- switch ancef to Rocephin as patient is still febrile, r/o CE source
- wean Levophed for SBP > 65
- monitor U/O closely
- check ECHO
- cont IVF
- appreciate snap attacher support
# Left Hip Bursitis
- Recently underwent localized injection for gluteus tear / bursitis and got temporary symptom relief.
- pain control / supportive care.
- PT / OT evaluations.
- Ortho input appreciated, s/p repeat steroid injection 09/04
# Upper GIB
- likey from gastroparesis/retching
- clamp trial NGT and hopeful DC soon
- monitor H and H, cont PPI ggt
- GI input appreciated
- s/p 1 unit prbc
# Right pleural Effusion
- for thora today
# Thrombocytopenia
- from sepsis
- CTM, repat CBC In am
#ASCVD
- Prior MD, CVA with L sided weakness.
- Continue Coumadin.
- Continue metoprolol with holding parameters to avoid hypotension.
#Mechanical Aortic Valve
- Continue Coumadin. Follow daily INR and adjust as needed.
- therapeutic INR 2-3
- repeat INR daily
# [place] on CKD 3b
- resolved
- Renal function not @ baseline 1.3
- CTM/avoid NT agents
# NAGMA
- cont LR
- repeat BMP in am
# Hypocalcemia
- replete
# TME
- from sepsis, r/o CVA, mets
- possible CE source, repeat echo
- neuro on board
- check MRI CD
# Chronic HFpEF
- Patient does not appear volume overloaded.
- Hold Lasix acutely as noted above.
- Follow I/Os, daily weights, etc. echo 08/13- 55-60%
- repeat ECHO
# Hypothyroidism
- Continue current T4 supplementation.
# Stage III Breast Cancer/Hodgkins Lymphoma
# H/O CVA with residual left hemiparesis
DVT prophylaxis: On Coumadin
Code Status: DNR
ACP
Patient consented to discuss, was with , time spent explanation of advance directives, changes in health status, patient�s health care wishes if the patient becomes unable to make health decisions, goals of care, code status, and prognosis-
16 minutes
CC Note
Due to a high probability of clinically significant, life-threatening deterioration, the patient required a high level of preparedness to intervene emergently. I personally spent this critical care time directly and personally managing the patient.
This critical care time included obtaining a history; examining the patient; ordering and review of studies and STAT labs; arranging urgent treatment with development of a management plan; evaluation of patient's response to treatment; reassessment;
and, discussions with other providers.
This critical care time was performed to assess and manage the high probability of imminent, life-threatening deterioration that could result in multi-organ failure. It was exclusive of separately billable procedures and treating other patients and
teaching time. Total time documented is also exclusive of any additional time listed that was spent in advance care planning discussion
Total critical care time: Approximately 33 minutes
Original Note:
Today's Communication/Plan
-
Throat Cx pending
Follow INR level
Follow CMP
Assessment / Plan
Assessment / Plan
09/04/25 Rapid Response Deteriorating Mental Status 2/2 Developing Severe Sepsis (Leukocytosis, Fever, end organ damage [place])
Acute Metabolic Encephalopathy
Transferred to ICU
Septic shock on Levophed improving- 141/54. Goal MAP>65
Blood Cx's drawn in ED + for Strep Pyogenes
ID consult, input appreciated
Started on Renally dose Cefazolin per discussion with ID- Replace Cefazolin with Ceftriaxone
Pt's + for Strep throat. Repeat blood C's x2.
Throat Cx- pending
Rapid strep-negative
Photo Specialist consult, input appreciated
Pt has low CO2 12- NAGMA 5
IVF with LR support
Follow temp- tylenol prn
Follow vitals
Breast Cancer
CT scan of head
At least 3 cm focus of decreased attenuation centered about the right sylvian fissure which could represent an intracranial mass with edema such as metastatic disease.
Subacute to chronic infarct cannot be differentiated on this CT without intravenous contrast.
Recommend Brain MRI without and with contrast for more complete evaluation.
Brain MRI w/wo contrast
There is no MR evidence for intracranial metastatic disease
There are small foci of acute to subacute infarct involving both occipital lobes
Focal region of abnormal restricted diffusion involving the choroid plexus within the atria of the right lateral ventricle.
Given the findings in the occipital lobe, this is suspicious for a focus of acute to subacute infarct involving the choroid plexus, although can also be seen with choroid plexus xanthogranuloma
Focal area of encephalomalacia involving the inferior right frontal and superior right temporal lobe, in the region of the insula. There is a region of abnormal diffusion extending superiorly and anteriorly to the region of encephalomalacia, and
signal abnormality extends appears increased compared to previous MRI in June 2021.
Findings would suggest focal area of acute to subacute infarct in the right frontal lobe, superior to the region of encephalomalaci
-last Tx was in October
-follows with Dr Amaral, recently received outpt IV iron infusions for anemia
-Consulted Neurology, input appreciated
-Carotid US pending
Nausea and Vomiting
-Possible Coffee Ground Emesis vs Bilious Emesis
-Hx of GIB with recent scopes in April- on protonix ggt for possible GIB
-09/04 NGT placed to suction w/ relief symptoms
-NG tube output still continue coffe ground emesis vs bile-- if output from NGT decrease consider clamping trial and d/c
-CT abd/pelvis w/o contrast limited study noted possible gastric outlet obstruction vs gastroparesis
-Hb 8.7, received 1PRBC. transfuse if Hgb<8
-Consult GI, input appreciated
-Avoid NSAID
Acute on CKD stage III
-likely pre-renal poor oral intake nausea vomiting on NG tube
-IVF support
-avoid nephrotoxins, prn Toradol discontinued
-monitor renal function
Mechanical Aortic Valve Replacement on Coumadin
HFpEF (recent ECHO EF 55-60%)
ASCVD
Prior MD, CVA with L sided weakness.
-INR therapeutic 2-3, unable to tolerate PO Coumadin at this time (N/V/AMS)
-consider hep gtt if INR falls below goal
-hold home Lasix given likely low volume [place] and sepsis
-Hol metoprolol, unable to tolerate PO at this time and permissive tachycardia for sepsis as above
TTE
1. Compared to a prior transthoracic echocardiogram study from 07/25/2025 no significant changes are seen.
2. Left ventricle is small in size. Mild concentric left ventricular hypertrophy. Preserved left ventricular systolic function. Left ventricular ejection fraction is 55-60% by visual estimate.
3. Well seated mechanical aortic valve replacement. Peak/mean gradients across the aortic valve are 7/4 mmHg respectively. No aortic regurgitation.
4. Moderate tricuspid regurgitation. Estimated pulmonary artery pressure of 39 mmHg assuming a right atrial pressure of 3 mmHg.
5. Thickened calcified mitral valve leaflets with adequate excursion. Dense mitral annular calcification. There is at least mild to moderate mitral regurgitation which may have been underestimated due to mitral annular calcification.
Acute on Chronic Left Hip Pain
-left hip greater trochanteric bursitis and gluteal tendinitis, follows Dr Caban
-Hip X-ray appreciated no acute fracture or dislocation
-Orthopedic eval appreciated steroid injection given 09/04/25- ice and tylenol prn
-PT eval
Electrolyte abnormality
-Ca 5.1- replete 1g IV given
-check corrected ca- ordered LFT/albumin/ionized calcium
DVT ppx SCD
DNR as per POA Uziel
Anticipated Discharge: > 48 hours
Subjective/Interval History
-
Date of Service: September 05, 2025
She complains about new sore throat and a new nodule on her right of the neck. She has difficulty with swallowing. She still reports pain on her left hip. She can not move her left leg due to pain. She rates it 7/10. She denies vomiting, SOB, Chest
pain, abdominal pain.
Patient's Uziel was positive for Strep throat on swab.
Objective Data
-
Labs:
Laboratory Results
09/04/25 09/05/25 09/05/25
23:34 05:25 06:07
WBC 24.4 H
Hgb 7.9 L D 13.3 D
Hct 24.4 L 40.1
Plt Count 165 D
PT 30.6 H
INR 2.94
APTT 56.1 H
Sodium Cancelled 136
Potassium Cancelled 3.6 D
Chloride Cancelled 119 H
Carbon Dioxide Cancelled 12 L*
BUN Cancelled 47 H
Creatinine Cancelled 1.4 H
Glucose Cancelled 156 H
Calcium Cancelled 5.1 L* D
09/05/25
06:16
WBC 15.8 H
Hgb 8.7 L D
Hct 25.6 L
Plt Count 120 L D
PT
INR
APTT
Sodium
Potassium
Chloride
Carbon Dioxide
BUN
Creatinine
Glucose
Calcium
Vital Signs:
Vital Signs
Temp Pulse Resp BP Pulse Ox
99.9 F 96 13 141/54 100
09/05/25 04:49 09/05/25 05:30 09/05/25 05:30 09/05/25 05:30 09/05/25 05:30
I&O
09/04/25 09/05/25 09/06/25
06:59 06:59 06:59
Intake Total 2819.5 / 2819.5
Output Total 395 / 395
Balance 2424.5 / 2424.5
Review of Systems
-
History Source: Patient
Constitutional: Reports Weakness (left leg)
EENT: Reports Sore Throat
Respiratory: Reports No Symptoms
Cardiac: Reports No Symptoms
Abdomen/GI: Reports No Symptoms
Breast: Reports No Symptoms
Genitourinary: Reports No Symptoms
Musculoskeletal: Reports Joint Swelling (left hip)
Skin: Reports No Symptoms
Neuro: Reports No Symptoms
Endocrine: Reports No Symptoms
Hematologic / Lymphatic: Reports Swollen Glands (right cervical LAP)
Allergy / Immunology: Reports No Symptoms
Physical Exam
-
General: Well Developed, Well Nourished and Pain
HEENT: Normocephalic, Atraumatic, Pharyngeal Erythema (pharyngeal black spots, no erythema) and Other (NG tube)
Respiratory: Clear to Auscultation
Cardiac: Regular Rhythm and S1/S2
Breast: Deferred by me
GI: Soft, Nontender, Nondistended and Normal Bowel Sounds
Rectal: Deferred by Provider
Genito-urinary: Lynn
Musculoskeletal: No Clubbing, No Cyanosis and No Edema
Skin: Warm and Dry
Neuro: AO x 3
Psych: Calm
[2025-09-05 08:41] LABS: Venous Blood Gas B.E. -9.7 mmol/L (-4 to +4); Venous Blood Gas O2 Sat % 99.9 %
--- NOTE | 2025-09-05 08:44 | CON.NEURO4 ---
Addendum entered and electronically signed by Daquan Garcia MD 09/05/25 10:15:
Studies reviewed.
I have personally examined the patient. I reviewed and agree with the ACTUARIAL SCIENCE TEACHER's Note.
My addenda:
Awake, interactive. No acute distress.
Speech mildly reduced output, occasionally thick.
Follows 1-step requests w/o difficulty. No tremor.
Extra-ocular movements grossly intact.
Facial movements full and symmetric. Hearing intact to normal conversational volume.
Normal UE movements bilaterally.
Neck: full ROM.
Chest: no dyspnea
Heart: no JVD
Ext: (-) Clubbing, (-) Cyanosis, (-) Edema
IMPRESSIONS/RECOMMENDATIONS:
Abrupt onset of change in mental status, most likely due to toxic metabolic encephalopathy. Due to suggested changes by repeated CT of head, differential diagnosis includes recurrent stroke or septic embolus producing patient's current dysphagia
Check MRI of brain with and without contrast to ensure absence of metastatic lesion producing changes by CT of head
Check carotid ultrasound to ensure carotid stenosis not present
When INR less than 2, consider restart of anticoagulation and the use of warfarin
Rehabilitation evaluations and treatment
At this time, goal of normotension
Will continue to follow pending results.
Original Note:
Documented by User: Huma Arriaza NP 09/05/25 09:50
Consultation - Neurology 4
-
CONSULTING PHYSICIAN: Daquan Garcia MD
REFERRING PHYSICIAN: Hospitalists/Dr. Rodriguez
DICTATED BY: STEPHANIE Zaidi
DATE/TIME OF REQUEST: 09/04/25
DATE/TIME OF CONSULTATION: 09/05/25
Reason for Consultation: Speech difficulty
History of Present Illness:
This is a 69-year-old right-handed male who has presented to the hospital on 09/04/25 with report of severe exacerbation of left hip/left gluteal tear discomfort and inability to weight bear on her left leg. Patient was previously followed by our
Neurology service for migraines and a right frontoparietal ischemic stroke in the setting of holding her warfarin for a colonoscopy.
From previous evaluation by Neurology Dr. Lemus on 07/16/25:
'The patient is a right-handed 65-year-old woman with a past medical history of migraines, TIA, Hodgkin's lymphoma, aortic valve replacement, stage III breast cancer status post bilateral mastectomy who presents with headache and speech change.
She has had a headache since approximately 7 PM on July 15 in the evening and took a Tylenol early this morning around 2 AM. She noted difficulty with speech around 6 AM 07/16 with some slowness of speech and very careful choosing of words
according to her . They do think that her speech is improved although does not sound completely normal at this time. She still has a severe headache 9/out of 10. There is been no vision change, photophobia, vomiting, nausea, weakness of
the legs or gait change. She feels that her arms strength and coordination is normal although she did spill some coffee this morning.
She takes Coumadin for history of aortic valve replacement and goal INR for her is generally 2.5�3.5. She had recent colonoscopy last Friday and has felt dehydrated since then. Over the weekend she had visit by her grandchildren and 2 dogs, has
slept well. She describes a history of migraines more than 30 years ago which manifested with severe headache, photophobia and received treatment from Dr. Colon an internationally renowned headache neurologist who now resides at [facility] in [place]. She has not had these migraines in a long time. She describes a TIA event around 15 years ago with some transient left-sided weakness which spontaneously resolved and did not result in any permanent disability or lasting
weakness.'
Patient's hospital course has been complicated by blood cultures positive for streptococcus pyogenes, WBC elevation attributed to recent left hip steroid injection, [place] on CKD, anemia, and nausea/vomiting. Yesterday (09/04/25), patient was noted to
be lethargic, only following occasional commands, and minimally verbal. Temperature was 101.2 axillary. She vomited coffee ground emesis. CT head was obtained and is concerning for metastatic disease versus chronic ischemic infarct that occurred in
the same area in 2020. Today (09/05/25), patient reports that mentally she is back to her baseline but her mouth is dry making her speech sound altered. She denies any headache, dizziness, vision changes, and numbness. She cannot lift her left leg,
which she attributes to pain. Her warfarin is on hold currently, INR is 2.94 today.
Past Medical History: Right frontoparietal ischemic stroke 06/2021, aortic stenosis s/p mechanical valve replacement, breast cancer s/p b/l mastectomy, hodgkin's lymphoma s/p radiation, HTN, HFpEF, CKD III, tinnitus
Surgical History: Bilateral mastectomy, aortic valve replacement, thyroidectomy, splenectomy, right ovarian cyst removal, R knee meniscectomy,
Family History: Reviewed and noncontributory.
Social History: Former smoker. Denies alcohol and illicit drug use.
Allergies: Penicillin, tramadol, palbociclib.
Home Medications: See below.
Review of Symptoms:
Patient denies any fever, headache, chest pain, shortness of breath, GI or symptoms.
�Per the HPI.�All systems are reviewed negative except above.
Physical Exam:
The patient is afebrile, abdomen is nondistended, breathing is unlabored, skin is warm and dry, no edema.
NIH Stroke Scale:
I performed the NIH stroke scale on the patient on 09/05/25 at 0845. The patient scored 5 points on the NIH stroke scale assessment, which were assigned as follows: See below.
Neurologic Examination:
The patient is awake, alert and oriented x 3. She is able to follow commands and answer questions appropriately. There is no aphasia. Speech is mildly dysarthric (NGT in place). On cranial nerve assessment, pupils are 3 mm bilateral, round and
reactive to light and accommodation. Visual fernandez are full. There is a 1+ right exotropia. Extraocular movements are mildly reduced with upgaze. There is left facial drooping. Hearing is intact bilaterally to normal conversation volume. Tongue
palate and uvula are midline. Sternocleidomastoid strengths are full bilaterally. Motor strengths are 5/5 bilateral upper, 5/5 right lower, and 2/5 left lower extremities on medical research [place] scale. There is no drift in BUE or RLE. No
involuntary movement noted. Deep tendon reflexes are 2+ bilateral upper and lower extremities and Babinski is absent bilaterally. There was no extinction noted on double simultaneous stimulation. Coordination is intact by finger to nose bilaterally.
Lab Results: See below.
Neuro Imaging:
1. CT head 09/04/25: At least 3 cm focus of decreased attenuation centered about the right sylvian fissure which could represent an intracranial mass with edema such as metastatic disease. Subacute to chronic infarct cannot be differentiated on this
CT without intravenous contrast. Recommend Brain MRI without and with contrast for more complete evaluation.
2. MRI brain 07/17/21: Focal area of acute to subacute infarction involving the right frontal lobe and the right insula. There is also a band of involvement near the right frontoparietal junction. No evidence for associated hemorrhage. Mild to
moderate T2 and FLAIR white matter hyperintensities, commonly seen with aging and usually attributed to small vessel ischemic disease. Partially empty sella is incidentally noted.
Differentials for the patient's presentation include:
1. Transient alteration in mental status likely due to toxic metabolic encephalopathy. Cannot entirely exclude a structural brain abnormality contributing to symptoms.
2. History of an old large right frontoparietal in the setting of holding her warfarin for a colonoscopy.
Patient has the following risk factors for their symptoms: Sepsis, metabolic derangements, old stroke
IV Tenecteplase/IAT candidacy: Not a candidate due to taking warfarin, concern for metastases, symptoms greatly improved.
Recommendations:
-Continue warfarin when cleared medically.
-Goal normotension.
-MRI brain with and w/o contrast pending.
-Carotid ultrasound pending.
-LDL goal <70. LDL is 25. Okay to remain off of statin therapy as LDL is well below goal.
-Goal normoglycemia.
-NIHSS and neurological checks per unit guidelines.
-Provide patient with a stroke education packet.
-PT/OT/ST evaluations.
Discussed patient care with: Dr. Garcia, the patient
Vital Signs and Labs
-
Vital Signs and Labs:
Vital Signs
Temp Pulse Resp BP Pulse Ox
97.5 F 96 13 141/54 100
09/05/25 07:31 09/05/25 05:30 09/05/25 05:30 09/05/25 05:30 09/05/25 05:30
Lab Results
09/05/25 06:16
09/05/25 06:07
PT 30.6 Sec (11.4-14.6) H 09/05/25 05:25
INR 2.94 09/05/25 05:25
APTT 56.1 Sec (23.4-35.0) H 09/05/25 05:25
Sodium 136 mmol/L (135-145) 09/05/25 06:07
Potassium 3.6 mmol/L (3.5-5.1) D 09/05/25 06:07
BUN 47 mg/dl (7-17) H 09/05/25 06:07
Glucose 156 mg/dl (70-99) H 09/05/25 06:07
Calcium 5.1 mg/dl (8.4-10.2) L* D 09/05/25 06:07
Phosphorus 2.9 mg/dl (2.5-4.5) 09/05/25 06:07
Kkt-D-Fgicdoekqpt Pept 5770 pg/ml 09/04/25 00:03
LDL Cholesterol, Calc 25 mg/dl 09/05/25 06:07
Medications
-
Active Medications
Generic Name Dose Route Start Last Admin
Trade Name Freq PRN Reason Stop Dose Admin
Acetaminophen 650 mg 09/04/25 18:09
Acetaminophen 650 Mg Rectal Suppository RECTAL 10/02/25 18:08
On Hold: 09/05/25 04:29 Q4HPRN PRN
ALLEN, mild pain, or temp >100.4F
Acetaminophen 650 mg 09/04/25 18:09
Acetaminophen 325 Mg Tablet PO 10/02/25 18:08
On Hold: 09/05/25 04:29 Q4HPRN PRN
ALLEN, mild pain, or temp >100.4F
Artificial Tears 1 drops 09/04/25 07:08
Artificial Tears Pf (Refresh) 10 Drop Droperette BOTH EYES 10/02/25 07:07
QIDPRN PRN
dry eye
Cefazolin Sodium 1 gram in 5 mls @ 60 mls/hr 09/04/25 16:00 09/05/25 04:50
Ancef IV 5 mls
Q12H PIETER Administration
Pantoprazole Sodium 80 mg in 100 mls @ 10 mls/hr 09/04/25 19:00 09/05/25 04:32
Protonix IV 100 mls
Q10H PIETER Administration
8 MG/HR
Norepinephrine Bitartrate 4 mg in 250 mls @ 0 mls/hr 09/04/25 21:45 09/05/25 04:32
Levophed IV 250 mls
PER PROTOCOL PIETER Administration
Protocol
Per Protocol
Acetaminophen 1,000 mg in 100 mls @ 400 mls/hr 09/05/25 04:27
Ofirmev IV 09/06/25 04:26
Q6HPRN PRN
fever>100.3/mild pain
Protocol
Lactated Ringer's 1,000 mls @ 50 mls/hr 09/05/25 08:00 09/05/25 08:01
Lr IV 1,000 mls
.Q20H PIETER Administration
Levothyroxine Sodium 88 mcg 09/04/25 07:00 09/05/25 06:23
Levothyroxine 88 Mcg Tablet PO 10/02/25 06:59 Not Given
DAILY AT 0700 PIETER
Metoprolol Succinate 50 mg 09/04/25 08:00 09/04/25 08:18
Metoprolol 50 Mg Extended Release Tablet PO 10/02/25 07:59 Not Given
On Hold: 09/04/25 19:39 BID PIETER
Morphine Sulfate 2 mg 09/04/25 06:59
Morphine 2 Mg/Ml Syringe IV 09/18/25 06:58
Q4HPRN PRN
moderate Severe Pain
Ondansetron HCl 4 mg 09/04/25 06:59 09/04/25 13:54
Ondansetron 4 Mg/2 Ml Vial IV 10/02/25 06:58 4 mg
Q6HPRN PRN Administration
nausea and vomiting
Prochlorperazine Edisylate 5 mg 09/04/25 17:03 09/04/25 17:08
Prochlorperazine 10 Mg/2 Ml Vial IV 10/02/25 17:02 5 mg
Q6HPRN PRN Administration
nausea vomiting
Sodium Chloride 0 flush 09/04/25 08:00
Sodium Chloride 0.9% (Flush) Syringe IV 10/02/25 07:59
PER PROTOCOL PIETER
Warfarin Sodium 2.5 mg 09/04/25 18:00 09/04/25 19:12
Warfarin 2.5 Mg Tablet PO 09/09/25 17:59 Not Given
On Hold: 09/04/25 19:22 QPM PIETER
Home Medications
�Medication �Instructions �Recorded
levothyroxine 88 mcg tablet 88 mcg PO DAILY AT 0700 Thyroid 07/16/21
metoprolol succinate 50 mg 50 mg PO BID Blood Pressure 10/24/24
tablet,extended release 24 hr
furosemide 20 mg tablet (Lasix) 20 mg PO SUTUTHSA@0800 Fluid 05/06/25
Retention/Swelling
furosemide 40 mg tablet 40 mg PO MOWEFR@0800 Fluid 05/06/25
Retention/Swelling
lorazepam 0.5 mg tablet 0.5 mg PO BIDPRN PRN anxiety 05/06/25
dextran 70-hypromellose eye drops 1 drp BOTH EYES QIDPRN PRN dry eye 05/27/25
in a dropperette (Artificial Tears
(PF) drops in a dropperette)
pantoprazole 40 mg tablet,delayed 40 mg PO DAILY Gastrointestinal 05/27/25
release (Protonix) Issue
warfarin 1 mg tablet 2.5 mg PO DAILY Blood Clot 09/04/25
Prevention/Tx
NIH Stroke Score
Subsequent NIH Scale
Date of Subsequent NIH Scale: 09/05/25
Time of Subsequent NIH Scale: 08:45
NIH Stroke Score
Level of Consciousness: 0 - Alert
LOC Questions: 0-Answers both correctly
LOC Commands: 0-Performs both correctly
Best Horizontal Gaze: 0-Normal
Visual Fernandez: 0=Normal, no visual loss
Facial Palsy: 1=Minor paralysis
Motor - Right Arm: 0=No drift 10 seconds
Motor - Left Arm: 0=No drift 10 seconds
Motor - Right Le-No drift 5 seconds
Motor - Left Le-None vs. gravity
Limb Ataxia: 0-Absent
Sensation: 0-Normal
Best Language: 0-No aphasia
Dysarthria: 1-Mild slurring
Extinction and Inattention: 0-No abnormality
NIH Total Score:: 5
Modified [place] (mRS) Score
Modified Jessi Scale (mRS): Moderately severe disability. Unable to attend to bodily needs/walk.
Score: 4

Documented by User: Daquan Garcia MD 09/05/25 10:05
NIH Stroke Score
NIH Stroke Score
NIH Total Score:: 5
Modified [place] (mRS) Score
Score: 4
--- NOTE | 2025-09-05 09:07 | CON.GI ---
Addendum entered and electronically signed by Nelson Muse DO 09/05/25 11:04:
I saw and examined the patient.
The GIZZARD PULLER's note was reviewed and I agree with the note.
Comment: Ms. Osborn is a 69 y.o female with an extensive past medical history as outlined below and notable for aortic stenosis (s/p MVR, on coumadin), Hodgkin's lymphoma (s/p XRT), breast cancer, gastroparesis and prior hx of obscure GI bleeding in
the past who prestented to the ED with L hip pain and difficulty with ambulation and found to have sepsis. Rapid response called on 09/04/25 due to worsening AMS felt to be secondary to severe sepsis where she was transferred to the ICU and found to
have strep pyogenes bacteremia. Started on IV antibiotics as per ID and eventual CTH imaging was concerning for possible metastatic disease/edema however felt to be related to a prior stroke in discussion with Neurology. Patient's course was further
complicated last evening when she developed concern for bilious emesis versus coffee ground emesis requiring placement of NGT. She has a history of prior obscure GI bleeding in the past. Otherwise, she was without any signs of overt GI bleeding
since her admission and currently her anticoagulation remains on hold. At bedside, appears consistent with bilious emesis in canister without kenji blood and without any melena or maroon colored stools. BUN elevated however appears unchanged and
stable to prior in setting of underlying CKD. Her Hgb did drop from 12.3 to 7.9 however suspect this is spurious as repeat CBC with Hgb 13s. Clinically, doubt UGIB and suspect bilious emesis secondary to underlying sepsis and altered mentation with
known underlying gastroparesis further predisposing to delayed emptying. Given patient's clinical condition, favor conservative approach with continuing empiric IV PPI gtt and holding coumadin at this time. Would defer any plans for an endoscopic
intervention at this time given low suspicion for an upper GI bleed and current clinical condition and currently encephalopathic likely from underlying sepsis pending MRI Brain for further evaluation. Would continue to monitor for signs of recurrent
bleeding while treating her sepsis/bacteremia. Favor restarting a/c with IV heparin gtt if needed but favor monitoring for 24 hours pending her clinical course. Agree with rest of care as outlined below and ongoing supportive care as per primary ICU
team.
GI will continue to follow. Please call with any questions or concerns.
Original Note:
Consultation
-
Date/Time Consultation Requested: 09/04/25 193
Date/Time Consultation Performed: 09/05/25 0900
Requesting Provider: Kelly Rodriguez MD
Performing Provider: STEPHANIE Jay, Nelson Muse DO
Reason for Consultation: coffee ground emesis
Medical History
Chief Complaint / HPI
Chief Complaint: vomting dark emesis
History of Present Illness:
Pt is a 69yo with hx multiple medical problems including hodgkin's lymphoma 1969's, prior XRT, breast CA with b/l mastectomy prior VT, hypothyroidism with prior thyroidectomy, splenectomy, HTN, secondary to XRT with mech AVR, MV stenosis, CVA,
CHF, pulm HTN, prior obscure GI bleed, CKD, gastroparesis with admission with left hip pain with difficulty walking with concern for recent gluteal tear. She is also noted with sepsis with rise in creat, mild LFT elevation, acidosis,
hypotension, fever with elevated lactate and concern for streptococcus pyogenes. She is also noted with speech difficulty with neurology evaluation. Asked to see as she is noted with onset of nausea/vomiting with coffee ground emesis. NGT was
placed with noted dark emesis. In review with patient and family hx GI bleeding in past with work up over last few years. She also admits to hx gastroparesis but minimal symptoms. She did take some morphine on admission and she was concerned
this may have triggered vomiting episodes. She admits to sore throat and weakness but denies dysphagia, GERD, abdominal pain, diarrhea, constipation or rectal bleeding. Pt was on Warfarin prior to admission but denies NSAID use. hbg 12.3 then drop
to 7.[address] on admission with fluid filled stomach gastric outlet of gastroparesis, cannot exclude retroperitoneal/maria isabel hepatitis adenopathy, small to moderate effusion.
Prior GI work up:
05/10/25- colonoscopy Dr. steinberg - Tortuous colon - Changed to an EGD scope to get through safely.- Ileal diverticulum.
- The examination was otherwise normal on direct and retroflexion views.
- No blood found throughout the colon or terminal ileum - No specimens collected.
05/09/[address] Ulloa - Normal esophagus. - Small hiatal hernia.
- Gastritis no old or fresh blood seen - Duodenum normal. Unable to pass through jejunum using colonoscope - No specimens collected.
11/2023- capsule- [place] retained in stomach , consider endoscopic deployment
12/2023- repeat EGD with capsule at [facility]- fresh blood in duodenum and proximal jejunum likely from scope trauma with capsule placement no visible angiectasias, ulcers or masses, more distally appears normal
Past Medical History
Past Medical History: Cancer (breast CA, hodgkin's lymphoma s ), CHF, CVA, HTN, Hypothyroidism, VT, Valvular Disease (, MV stenosis ) and Other
Past Surgical History: Cardiac (mechanical AVR), and Other ( bilateral mastectomy, thyroidectomy, splenectomy)
Social History
Tobacco: Former Smoker
Alcohol: Occasional
Drug: None
Personal:
Living: With Family
Family History
Family History: Other (no family hx colon Ca or polyps)
Allergies / Home Medications
Allergy/AdvReac Type Severity Reaction Status Date / Time
palbociclib (From I[place]) Allergy Tongue Verified 09/04/25 00:10
Swelling
Penicillins Allergy throat Verified 09/04/25 00:10
swelling-
tolertates
amoxicillin
tramadol Allergy throat Verified 09/04/25 00:10
swelling
�Medication �Instructions �Recorded
levothyroxine 88 mcg tablet 88 mcg PO DAILY AT 0700 Thyroid 07/16/21
metoprolol succinate 50 mg 50 mg PO BID Blood Pressure 10/24/24
tablet,extended release 24 hr
furosemide 20 mg tablet (Lasix) 20 mg PO SUTUTHSA@0800 Fluid 05/06/25
Retention/Swelling
furosemide 40 mg tablet 40 mg PO MOWEFR@0800 Fluid 05/06/25
Retention/Swelling
lorazepam 0.5 mg tablet 0.5 mg PO BIDPRN PRN anxiety 05/06/25
dextran 70-hypromellose eye drops 1 drp BOTH EYES QIDPRN PRN dry eye 05/27/25
in a dropperette (Artificial Tears
(PF) drops in a dropperette)
pantoprazole 40 mg tablet,delayed 40 mg PO DAILY Gastrointestinal 05/27/25
release (Protonix) Issue
warfarin 1 mg tablet 2.5 mg PO DAILY Blood Clot 09/04/25
Prevention/Tx
Review of Systems
-
History Source: Patient and Family
Constitutional: Reports Fever (up to 101.4 on admission) and Weight Loss (over last 2 years )
EENT: Reports No Symptoms
Respiratory: Reports No Symptoms
Cardiac: Reports No Symptoms
Abdomen/GI: Reports Nausea and Vomiting (dark emesis )
: Reports No Symptoms
Musculoskeletal: Reports Joint Pain (hip pain with recent tear )
Skin: Reports No Symptoms
Neurological: Reports Dizzy and Weakness
Endocrine: Reports No Symptoms
Hematologic/Lymphatic: Reports Bleeding
Vital Signs
Temp Pulse Resp BP Pulse Ox
97.5 F 96 13 141/54 100
09/05/25 07:31 09/05/25 05:30 09/05/25 05:30 09/05/25 05:30 09/05/25 05:30
Physical Exam
Exam
General: Other (thin appearing and weak on exam but conversant )
HEENT: Normocephalic, Anicteric and Other (thick speech but conversant )
Respiratory: Clear
Cardiac: Other (tachy)
GI: Soft, Non Tender, Distended (minimal ) and Other (NGT with dark emesis )
Musculoskeletal: No Clubbing and No Cyanosis
Skin: Warm and Dry
Neuro: Awake, Alert and Other (sleep but awakens to voice )
Psych: Calm
Results
WBC 15.8 10^3/uL (4.8-10.8) H 09/05/25 06:16
Hgb 8.7 g/dL (12.0-16.0) L D 09/05/25 06:16
Hct 25.6 % (37.0-47.0) L 09/05/25 06:16
MCV 86.5 fL (81.0-99.0) 09/05/25 06:16
Plt Count 120 10^3/uL (130-400) L D 09/05/25 06:16
Absolute Neuts (auto) 17.9 10^3/uL (1.4-6.5) H 09/04/25 00:03
PT 30.6 Sec (11.4-14.6) H 09/05/25 05:25
INR 2.94 09/05/25 05:25
APTT 56.1 Sec (23.4-35.0) H 09/05/25 05:25
Sodium 136 mmol/L (135-145) 09/05/25 06:07
Potassium 3.6 mmol/L (3.5-5.1) D 09/05/25 06:07
Chloride 119 mmol/L (98-107) H 09/05/25 06:07
Carbon Dioxide 12 mmol/L (22-30) L* 09/05/25 06:07
BUN 47 mg/dl (7-17) H 09/05/25 06:07
Creatinine 1.4 mg/dL (0.6-1.0) H 09/05/25 06:07
Calcium 5.1 mg/dl (8.4-10.2) L* D 09/05/25 06:07
Total Bilirubin 0.7 mg/dl (0.2-1.3) 09/04/25 16:48
AST 37 U/L (14-36) H 09/04/25 16:48
ALT 25 U/L (0-35) 09/04/25 16:48
Alkaline Phosphatase 129 U/L (38-126) H 09/04/25 16:48
Diagnostic Image Results:
09/04/25 CT Head W/o Iv Contrast
At least 3 cm focus of decreased attenuation centered about the right sylvian fissure which could represent an intracranial mass with edema such as metastatic disease. Subacute to chronic infarct cannot be differentiated on this CT without
intravenous contrast. Recommend Brain MRI without and with contrast for more complete evaluation.
Findings discussed by telephone with Dr. Ramos at approximately 1747 hours on September 04, 2025.
09/04/25 CR Abdomen, Portable - 1 View
Nonobstructive intestinal bowel gas pattern.
09/04/25 CT Abd/pelvis Wo Iv Cont
Markedly limited CT of the abdomen and pelvis as a result of numerous factors, as detailed above, without findings to suggest intestinal obstruction or free air.
Air and fluid filled stomach, cannot exclude some gastric outlet obstruction or gastroparesis.
Cannot exclude some retroperitoneal/maria isabel hepatis lymphadenopathy, limited.
Small to moderate right pleural effusion and patchy bibasilar opacities which may be inflammatory/infectious.
Additional nonurgent findings, as detailed above.
09/04/25 CR Chest Portable - 1 View
No acute disease of the chest.
Feeding tube placement as described above.
Prior GI Procedures:
05/10/25- colonoscopy Dr. steinberg - Tortuous colon - Changed to an EGD scope to get through safely.- Ileal diverticulum.
- The examination was otherwise normal on direct and retroflexion views.
- No blood found throughout the colon or terminal ileum - No specimens collected.
05/09/[address] Ulloa - Normal esophagus. - Small hiatal hernia.
- Gastritis no old or fresh blood seen - Duodenum normal. Unable to pass through jejunum using colonoscope - No specimens collected.
11/2023- capsule retained in stomach , consider endoscopic deployment
12/2023- repeat EGD with capsule at [facility]- fresh blood in duodenum and proximal jejunum likely from scope trauma with capsule placement no visible angioectasias, ulcers or masses, more distally appears normal
Assessment / Plan
-
Pt is a 69yo with hx multiple medical problems including hodgkin's lymphoma 1970's, prior XRT, breast CA with b/l mastectomy prior VT, hypothyroidism with prior thyroidectomy, splenectomy, HTN, secondary to XRT with mech AVR, MV stenosis, CVA,
CHF, pulm HTN, prior obscure GI bleed, CKD, gastroparesis with admission with left hip pain with difficulty walking with concern for recent gluteal tear. She is also noted with sepsis with rise in creat , mild LFT elevation, acidosis,
hypotension, fever with elevated lactate and concern for streptococcus pyogenes. She is also noted with speech difficulty with neurology evaluation. Asked to see as she is noted with onset of nausea/vomiting with coffee ground emesis. NGT was
placed with noted dark emesis. In review with patient and family hx GI bleeding in past with work up over last few years. She also admits to hx gastroparesis but minimal symptoms. She did take some morphine on admission and she was concerned
this may have triggered vomiting episodes. She admits to sore throat and weakness but denies dysphagia, GERD, abdominal pain, diarrhea, constipation or rectal bleeding. Pt was on Warfarin prior to admission but denies NSAID use. hbg 12.3 then drop
to 7.[address] on admission with fluid filled stomach gastric outlet of gastroparesis, cannot exclude retroperitoneal/maria isabel hepatitis adenopathy, small to moderate effusion.
Prior GI work up:
05/10/25- colonoscopy Dr. steinberg - Tortuous colon - Changed to an EGD scope to get through safely.- Ileal diverticulum.
- The examination was otherwise normal on direct and retroflexion views.
- No blood found throughout the colon or terminal ileum - No specimens collected.
05/09/[address] Ulloa - Normal esophagus. - Small hiatal hernia.
- Gastritis no old or fresh blood seen - Duodenum normal. Unable to pass through jejunum using colonoscope - No specimens collected.
11/2023- capsule- [place] retained in stomach , consider endoscopic deployment
12/2023- repeat EGD with capsule at [facility]- fresh blood in duodenum and proximal jejunum likely from scope trauma with capsule placement no visible angiectasias, ulcers or masses, more distally appears normal
-coffee ground emesis
-anemia
-hx gastroparesis
-CT on admission with fluid filled stomach gastric outlet of gastropareisis, cannot exclude retroperitoneal/maria isabel hepatitis adenopathy
-fall prior to admission with gluteal tear
-mech AVR with chronic warfarin use
-sepsis with hypotension/fever/elevated lactate -step pyogenes bacteremia
-acidosis
-mild thrombocytopenia
-hx occult GI bleed
-speech difficulty with hx CVA(CT head mass vs infarct for MR brain)
hodgkin's lymphoma 1969', prior XRT, breast CA with b/l mastectomy prior VT, hypothyroidism with prior thyroidectomy, splenectomy, HTN, secondary to XRT with mech AVR, MV stenosis, CVA, CHF, pulm HTN, CKD
PLAN:
etiology of coffee ground emesis related to gastroparesis with distention from morphine use on admission in setting of sepsis, vs GI bleeding with variable hbg vs other
pt does have hx occult GI bleeding with recent scopes in April - suspect possible SB AVM vs radiation enteritis but not noted on casp2023
CT as noted
with current sepsis and hypotension hold on EGD
cont to trend hbg --transfuse as needed
cont PPI gtt
NSAID avoidance
if output from NGT decrease consider clamping trial and d/c
work up for sepsis/bacteremia per medical team for echo cont abx
for ID eval
s/p ortho eval with recent hip injury
for MRI brain with slurred speech on exam s/p HCT as noted
from GI standpoint ok for heparin gtt if needed with close follow for drop in hbg and recurrent bleeding
update family at bedside spoke with nursing staff and cristobal
hbg trend 12/3- 7.9 (one unit given)-13.3- 8.7.
-
-
Thank you for consultation and allowing me to participate in the patient's care. Please call the media consultant outside sales GI physician during the after hours with any questions or concerns.
--- NOTE | 2025-09-05 09:54 | CON.ID ---
Consultation
-
Date/Time Consultation Requested: September 04, 2025 1533
Date/Time Consultation Performed: September 05, 2025 1000
Requesting Provider: Dr. Evelin Rodriguez
Performing Provider: Dr. Katty Quinn
Reason for Consultation: Bacteremia
Chief Complaint / Past History
Chief Complaint
Severe left hip pain
History of Present Illness
History obtained from patient and at bedside. She is a 69-year-old female with multiple medical problems including mechanical AVR, gastroparesis, upper GI bleed, history of Hodgkin's lymphoma status post splenectomy and chest radiation,
stage III recurring breast cancer who presented to the hospital 09/04/25 with severe left hip pain. She reports about a month ago she banged her hip against the door frame and also incident of left foot landing hard on the ground after slipping off
a barstool. Since then she has been having left hip pain that radiates to the groin and anterior thigh. She was following with orthopedic. August 17 MRI without contrast of the left hip showed gluteus minimus muscle and tender tear with
peritrochanteric edema and fluid. She received steroid injection into the left hip with symptom improvement. However on Friday she had a long car ride. Afterwards she had recurrence of the left hip pain that was severe and unable to bear
weight. Per , patient was having shaking chills, unable to get warm. He therefore brought her to the ER. White count was 18.9. Initially she was afebrile. Hip x-ray showed gluteus medius calcific tendinosis. CT of the abdomen pelvis
markedly limited study. She was seen by orthopedic who gave her another steroid injection to the left hip. Patient noted to have decreased mental status. She then became febrile temperature 101.4, hypotensive requiring pressor and she was
transferred to the ICU. Last night she had coffee ground emesis, NG tube placed. Admission blood cultures are positive for group A strep x 2. Patient denies sore throat before admission. She now complains of right throat discomfort from the NG
tube. did have mild sore throat that started on Friday. He states his throat swab for rapid strep is positive today; his PCP put him on azithromycin. No other sick contacts. Patient denies cough. No shortness of breath. No chest
pain. No abdominal pain. No diarrhea. No urine symptoms.
Past History
Additional Past Medical History:
Hypertension
Hypothyroidism
CVA
CAD
HFpEF
Pulmonary hypertension
Mechanical AVR (2006)
Gastroparesis
CKD3
Upper GI bleed
Splenectomy due to Hodgkin's lymphoma
Hodgkin's lymphoma status post XRT 1973
Breast cancer status post bilateral mastectomy (2018, bilateral mastectomy, declined chemo and radiation, later treated with tamoxifen), Stage 3 recurring
Thyroidectomy
Appendectomy
Allergy History:
palbociclib (From adQ) Allergy (Verified 09/04/25 00:10)
Tongue Swelling
Penicillins Allergy (Verified 09/04/25 00:10)
throat swelling- tolertates amoxicillin
tramadol Allergy (Verified 09/04/25 00:10)
throat swelling
Medications Reviewed: Yes
Current Antibiotics:
Cefazolin 1 g IV every 12 d2
Social History
Tobacco: Former Smoker
Alcohol: Occasional
Drug: None
Personal:
Living: With Family
Family History
Family History: Not Pertinent
Review of Systems
Review of Systems
General: Chills and Change in Appetite
HEENT: Negative Sinus Problems or Headache
Cardiovascular: Negative Chest Pain
Respiratory: Negative Dyspnea or Cough
Gasteroenterology: Nausea and Vomiting; Negative Diarrhea
Genital / Urological: Negative Dysuria or Flank Pain
Endocrine: Weakness
Skin / Hair / Nails: Negative Rash
Neurological: Negative Dizziness
All systems: All other systems were reviewed and were negative
Vital Signs
Temp Pulse Resp BP Pulse Ox
97.5 F 99 19 155/60 99
09/05/25 07:31 09/05/25 09:30 09/05/25 09:30 09/05/25 09:30 09/05/25 09:30
Selected Entries
09/04/25
18:48 09/04/25
20:15
Temp 101.2 F H 101.4 F H
Physical Exam
Physical Exam
Constitutional: Acutely Ill and Cachetic
Head: Other (No frontal or maxillary sinus tenderness. R NGT in place)
Eyes: No Conjunctival Hemorrhage and Sclera Anicteric
Pharynx: Other (Mild erythema anterior pharynx, no exudate, no edema)
Lymph Nodes: Negative Lymphadenopathy
Cardiovascular: S1/S2 (tachycardic) and Murmur (mechanical valve sound)
Pulmonary: Clear
Gastrointestinal: Soft, Non Tender, Non Distended and Normal Bowel Sounds
Genito-Urinary: Negative CVA Tenderness
Extremities: Negative Edema
Musculoskeletal: Other (Left hip no erythema/edema/warmth)
Neurological: AO x 3
Lab / Diagnostic Study Results
Abs Immat Gran (auto) 0.4 10^3/uL (0-0.05) H 09/04/25 00:03
Absolute Neuts (auto) 17.9 10^3/uL (1.4-6.5) H 09/04/25 00:03
Absolute Lymphs (auto) 0.3 10^3/uL (1.2-3.4) L 09/04/25 00:03
Absolute Monos (auto) 0.3 10^3/uL (0.1-0.6) 09/04/25 00:03
Absolute Basos (auto) 0.1 10^3/uL (0-0.2) 09/04/25 00:03
Immature Gran % 2.0 % (0-0.5) H 09/04/25 00:03
Neutrophils % 94.4 % (42.2-75.2) H 09/04/25 00:03
Lymphocytes % 1.5 % (20.5-51.1) L 09/04/25 00:03
Monocytes % 1.3 % (1.7-9.3) L 09/04/25 00:03
Eosinophils % 0.3 % (0-6) 09/04/25 00:03
Basophils % 0.5 % (0-2) 09/04/25 00:03
PT 30.6 Sec (11.4-14.6) H 09/05/25 05:25
INR 2.94 09/05/25 05:25
Lactic Acid 2.8 mmol/L (0.7-2.0) H 09/05/25 05:25
Ur Squamous Epith Cells 6-10 /LPF (Few) 09/04/25 02:51
Microbiology Results
Micro:
09/04/25 02:50 Blood Culture - Preliminary
Blood/Venous Streptococcus pyogenes
Gram Stain - Final
09/04/25 02:50 Blood Culture - Preliminary
Blood/Venous Streptococcus pyogenes
Gram Stain - Final
09/04/25 02:51 Urine Culture - Pending
Urine
09/04/25 CXR: The lungs are clear.
09/04/25 CT a/P: Markedly limited CT of the abdomen and pelvis as a result of numerous factors,
09/04/[address]: At least 3 cm focus of decreased attenuation centered about the right sylvian fissure which could represent an intracranial mass with edema such as metastatic disease. Subacute to chronic infarct cannot be differentiated on this CT
without intravenous contrast. Recommend Brain MRI without and with contrast for more complete evaluation.
09/04/25 L HIP XRAY:No acute fracture or dislocation. The hip joint space is maintained. Gluteus medius calcific tendinosis.
08/17/25 outside MRI wo contrast left hip report: ' There is evidence of a tear of the distal gluteus minimus muscle and tendon at the level of the greater trochanter with evidence of peritrochanteric edema and fluid. Incidental inguinal lymph
nodes are noted bilaterally.
Assessment / Plan
# Group A streptococcus bacteremia
# Septic shock on pressor, improving
# Left hip pain/trochanteric bursitis/gluteus tendinitis s/p left hip injection x 2
# Hx Splenectomy
# Stage 3 breast ca (not on tx)
# Mechanical AVR
- Positive ill contact - with Group A strep pharyngitis
- Swab pt's throat for rapid strep
- TTE
- No safe window for Hogshead Inspector to tap small R pleural effusion at bedside
- Repeat blood cx's x 2
- Replace cefazolin with ceftriaxone.
- Follow temps, wbc, vitals.
Care Review
Plan reviewed with: Physician (Dr. Greenfield)
[2025-09-05] MEDS: STERILE WATER FOR INJECTION 20 ML IV (13:48)
[2025-09-05] MEDS: ROCEPHIN 2000 MG IV (13:49)
[2025-09-05 15:32] LABS: Blood Urea Nitrogen 58 mg/dl (7-17); Calcium 8.0 mg/dl (8.4-10.2); Carbon Dioxide 17 mmol/L (22-30); Chloride 112 mmol/L (98-107); Estimated Creatinine Clearance 18 ml/min; Glucose 109 mg/dl (70-99); Potassium 4.9 mmol/L (3.5-5.1); Sodium 135 mmol/L (135-145); eGFR 29.75
[2025-09-05 15:49] LABS: Hematocrit 43.0 % (37.0-47.0); Hemoglobin 13.2 g/dL (12.0-16.0); Mean Corp Hgb Conc. 30.7 g/dL (33.0-37.0); Mean Corpuscular Volume 91.1 fL (81.0-99.0); Platelet Count 187 10^3/uL (130-400); Red Cell Dist. Width 20.4 % (11.5-14.5)
[2025-09-05 15:51] LABS: ALT (SGPT) 22 U/L (0-35); AST (SGOT) 64 U/L (14-36); Albumin 2.8 g/dl (3.5-5.0); Alkaline Phosphatase 126 U/L (38-126); Total Protein 7.5 g/dl (6.3-8.2)
[2025-09-05 16:15] LABS: ALT (SGPT) 18 U/L (0-35); AST (SGOT) 45 U/L (14-36); Albumin 1.8 g/dl (3.5-5.0); Alkaline Phosphatase 65 U/L (38-126); Total Protein 5.2 g/dl (6.3-8.2)
[2025-09-05 16:23] LABS: LDH 309 U/L (120-246)
--- NOTE | 2025-09-05 16:24 | CM ---
09/04/25 abrupt change in MS, Rapid called, transferred to ICU, sepsis? ongoing diagnostic testing. IV/Rocephin, ongoing L hip pain. Therapy unable to do eval due to testing and medical instability. Discharge POC: Await therapy eval.
[2025-09-05] MEDS: FLUSH (NSS) IV (17:06)
[2025-09-05] MEDS: OFIRMEV 100 IV ×2 (17:24→23:35)
--- NOTE | 2025-09-05 18:25 | PTCARENOTE ---
0400: Systems reviewed. Pt taken to MRI. Remains drowsy on 2L NC. NSR/ST on telemetry. Dr. Greenfield aware of afternoon lab work. Increased LR IVF. Church with clear yellow urine. PRN IV Ofirmev for throat pain. Plan for midline placement as pt is a
hard stick. trend lactate. Holding Coumadin.
[2025-09-05] MEDS: ANESTHETIC LOZENGE 1 LOZENGE PO (23:44)
[2025-09-06] VITALS (26 sets, daily range): BP systolic 101–173; BP diastolic 51–77; PULSE 100; O2SAT 93; BMI 18.8
[2025-09-06] MEDS: DILAUDID 0.25 MG IV ×4 (00:02→17:07)
--- NOTE | 2025-09-06 01:00 | PTCARENOTE ---
PRN landis meds given overnight for throat and L hip pain, see DEC. IVF and protonix gtt continue. pt remains SR on monitor, on 2L NC, NGT to LIWS. lynn care done. call roth in reach.
[2025-09-06] MEDS: PROTONIX 100 IV (02:36)
[2025-09-06 04:18] LABS: Venous Blood Gas B.E. -8.8 mmol/L (-4 to +4); Venous Blood Gas O2 Sat % 100.0 %; Venous Blood Gas O2 Therapy ROOM AIR
[2025-09-06 04:26] LABS: Hematocrit 36.9 % (37.0-47.0); Hemoglobin 11.9 g/dL (12.0-16.0); Mean Corp Hgb Conc. 32.2 g/dL (33.0-37.0); Mean Corpuscular Volume 88.5 fL (81.0-99.0); Platelet Count 181 10^3/uL (130-400); Red Cell Dist. Width 19.9 % (11.5-14.5)
[2025-09-06 04:32] LABS: INR 2.39; PT 26.1 Sec (11.4-14.6)
--- NOTE | 2025-09-06 04:44 | PTCARENOTE ---
AM labs and 1 set of blood cultures sent. assessment unchanged. call roth in reach.
[2025-09-06 04:54] LABS: ALT (SGPT) 18 U/L (0-35); AST (SGOT) 45 U/L (14-36); Albumin 2.6 g/dl (3.5-5.0); Alkaline Phosphatase 111 U/L (38-126); Blood Urea Nitrogen 58 mg/dl (7-17); Calcium 8.3 mg/dl (8.4-10.2); Carbon Dioxide 16 mmol/L (22-30); Chloride 112 mmol/L (98-107); Estimated Creatinine Clearance 18 ml/min; Glucose 105 mg/dl (70-99); Potassium 5.2 mmol/L (3.5-5.1); Sodium 135 mmol/L (135-145); Total Protein 6.8 g/dl (6.3-8.2); eGFR 29.75
[2025-09-06] MEDS: SYNTHROID PO (06:26)
[2025-09-06] MEDS: CALCIUM GLUCONATE 100 IV (06:26)
[2025-09-06] MEDS: 0.45%NACL 1000 IV (06:26)
--- NOTE | 2025-09-06 08:00 | PTCARENOTE ---
Received pt @ change of shift. Pt. drowsy, awakens to verbal stim; ox3; NIH- 6 scored for drowsiness, L facial droop, L leg drift and severe dysarthria- see flow sheet. C/O R neck pain, medicated w PRN- see DEC. SR on monitor. SpO2 97% on 2LNC.
Afebrile. R nare NGT secured @ 55cm; LIS w scant amts of green/brown output; denies n/v. NPO status maintained. Church in place draining yellow urine. L midline w 1/2 NSS @ 50mL/hr; #20 L FA w Protonix gtt infusing; #20 L hand patent, dressing
c/d/i. Pt. assisted w active repositioning in bed. Aware of how to report care concerns and call ira w in reach.
[2025-09-06] MEDS: NSS (PRESERVATIVE FREE) 10 ML IV ×2 (09:00→21:03)
[2025-09-06] MEDS: PROTONIX IV 40 MG IV ×2 (09:00→21:03)
--- NOTE | 2025-09-06 09:17 | W.PN.HOSP.TC ---
Addendum entered and electronically signed by Richardson Hawthorne MD 09/06/25 21:29:
Attending Addendum-
I saw and evaluated the patient. I reviewed the resident�s note and agree with findings and plan as documented in the resident�s note. Sub: patient much more clear today still with mild slurred speech. complaints of throat discomfort from NGT.
afebrile. Denies SOB CP fevers chills palps. Full 12 point ROS reviewed and negative except as documented Exam: Vitals reviewed in chart GEN-NAD Heart RRR no MRG, crisp click RUSB Lungs decreased BS RLL, no W/R/R Abd soft NT ND pos BS LE no edema,
left hip TTP lynn in place Neuro AAO x 3 mild slurred speech follows commands
Plan:
# Septic Shock from GAS with bacteremia
- 09/04-blood cx pos x 2 GAS, rapid strep - neg, throat cx -P
- blood cx 09/05- NGTD, repeat blood cx 09/06-P
- cont Rocephin
- r/o vegetation - check DAVE
- weaned off Levophed for SBP > 65
- monitor U/O closely
- ECHO 09/05-Compared to a prior transthoracic echocardiogram study from 07/25/2025 no significant changes are seen.
-Left ventricular ejection fraction is 55-60% by visual estimate.
-Well seated mechanical aortic valve replacement.
- DC IVF
- appreciate automotive starter repairer support
# Left Hip Bursitis
- Recently underwent localized injection for gluteus tear / bursitis and got temporary symptom relief.
- pain control / supportive care.
- Ortho input appreciated, s/p repeat steroid injection 09/04
# Upper GIB
- resolved, exacerbated by warfarin
- likely from gastroparesis/retching
- DC NG tube
- monitor H and H-stable, PPI gtt-> IV BID
- GI input appreciated
- received 1 unit prbc this admission
# Right pleural Effusion
- for thoracentesis today, send fluid for analysis
# Mechanical Aortic Valve
- resume Coumadin per cards
- therapeutic INR 2-3
- start heparin gtt per automotive starter repairer monitor aptt
- repeat INR daily
# [place] on CKD 3b
- worsened, pre renal
- DC IVF give lasix
- baseline 1.3
- CTM/avoid NT agents
# Thrombocytopenia
- from sepsis, improving
- CTM, repeat CBC In am
# CAD
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
- Continue metoprolol with holding parameters to avoid hypotension.
# NAGMA
- resolving
- repeat BMP in am
# Hypocalcemia
- replete prn
# Dysphagia
- start IDDSI 6 diet
# TME
- from sepsis, improving
- neuro on board
- MRI- small foci of acute to subacute infarct involving both occipital lobes
- likely CE, check DAVE in am, NPO pMN
- B/L CD - no significant stenosis
# Chronic HFpEF
- appears mildly volume overloaded
- restart Lasix
- Follow I/Os, daily weights, etc. echo 08/13- 55-60%
# Hypothyroidism
- Continue current T4 supplementation.
# Stage III Breast Cancer/Hodgkins Lymphoma
# H/O CVA with residual left hemiparesis
DVT prophylaxis:Coumadin
Code Status: DNR verified with POA
CC Note
Due to a high probability of clinically significant, life-threatening deterioration, the patient required a high level of preparedness to intervene emergently. I personally spent this critical care time directly and personally managing the patient.
This critical care time included obtaining a history; examining the patient; ordering and review of studies and STAT labs; arranging urgent treatment with development of a management plan; evaluation of patient's response to treatment; reassessment;
and, discussions with other providers.
This critical care time was performed to assess and manage the high probability of imminent, life-threatening deterioration that could result in multi-organ failure. It was exclusive of separately billable procedures and treating other patients and
teaching time.
Total critical care time: Approximately 34 minutes
Original Note:
Today's Communication/Plan
-
Tomorrow DAVE
NPO after moidnight
Thoracentesis fluid Cx pending
Start Coumadin 2.5mg
Assessment / Plan
Assessment / Plan
09/04/25 Rapid Response Deteriorating Mental Status 2/2 Developing Severe Sepsis (Leukocytosis, Fever, end organ damage [place])
Acute Metabolic Encephalopathy
-Transferred to ICU
-Septic shock Levophed on hold improving BP 136/61. Goal MAP>65
-Blood Cx's drawn in ED + for Strep Pyogenes
-ID consult, input appreciated
-Started on Renally dose Cefazolin per discussion with ID- Replace Cefazolin with Ceftriaxone
-Pt's + for Strep throat. Repeat blood C's x2.
-Throat Cx Group B strep - pending
-Rapid strep-negative
-[employer] consult, input appreciated
-Pt has low CO2 12- NAGMA 7
-IVF with LR support
-Pleural fluid Cx- pending
-Follow temp- tylenol prn
-Follow vitals
Nausea and Vomiting
-Possible Coffee Ground Emesis vs Bilious Emesis
-Hx of GIB with recent scopes in April
-09/04 NGT placed to suction w/ relief symptoms- Patient had NG tube which was pulled 09/06/2025 with no significant finding of coffee-ground emesis
-CT abd/pelvis w/o contrast limited study noted possible gastric outlet obstruction vs gastroparesis
-Hb 8.7, received 1PRBC. transfuse if Hgb<8
-Consult GI, input appreciated
-Switch to Protonix BID from ggt
-Avoid NSAID
Right sided pleural effusion
- On POCUS- moderate effusion
- Suspect for sepsis site with Bc strep. pyogenes- empyema?
- thoracentesis was performed today. Await fluid studies
- Per Light's Criteria PF/Serum Protein= 0.58= exudative, PF/Serum LDH=0.517=transudative
- High likely exudative 2/2 infection
Breast Cancer
CT scan of head
At least 3 cm focus of decreased attenuation centered about the right sylvian fissure which could represent an intracranial mass with edema such as metastatic disease.
Subacute to chronic infarct cannot be differentiated on this CT without intravenous contrast.
Recommend Brain MRI without and with contrast for more complete evaluation.
Brain MRI w/wo contrast
There is no MR evidence for intracranial metastatic disease
There are small foci of acute to subacute infarct involving both occipital lobes
Focal region of abnormal restricted diffusion involving the choroid plexus within the atria of the right lateral ventricle.
Given the findings in the occipital lobe, this is suspicious for a focus of acute to subacute infarct involving the choroid plexus, although can also be seen with choroid plexus xanthogranuloma
Focal area of encephalomalacia involving the inferior right frontal and superior right temporal lobe, in the region of the insula. There is a region of abnormal diffusion extending superiorly and anteriorly to the region of encephalomalacia, and
signal abnormality extends appears increased compared to previous MRI in June 2021.
Findings would suggest focal area of acute to subacute infarct in the right frontal lobe, superior to the region of encephalomalaci
Carotid US- Minimal calcified carotid bulb plaque on each side, measurements suggestive of less than 50% stenosis on each side
-last Tx was in October
-follows with Dr Amaral, recently received outpt IV iron infusions for anemia
-Consulted Neurology, input appreciated
-DAVE tomorrow for eval of embolic CVA
-NPO after midnight
Dysarthria
Dysphagia
-likely 2/2 acute/subacute infarcts in bl occipital lobes, choroid plexus, and extension of previous right frontal lobe infarct
-Evaluated by speech therapy. Recommending IDDSI 6 soft and bite-size diet
Acute on CKD stage III
-likely pre-renal poor oral intake nausea vomiting
-IVF support
-avoid nephrotoxins, prn Toradol discontinued
-monitor renal function
Mechanical Aortic Valve Replacement on Coumadin
HFpEF (recent ECHO EF 55-60%)
ASCVD
Prior [place], CVA with L sided weakness.
-INR therapeutic 2,5-3,5, Continue 2.5mg Coumadin
-Cntinue heparind ggt
-hold home Lasix given likely low volume [place] and sepsis
-Hol metoprolol, unable to tolerate PO at this time and permissive tachycardia for sepsis as above
TTE
1. Compared to a prior transthoracic echocardiogram study from 07/25/2025 no significant changes are seen.
2. Left ventricle is small in size. Mild concentric left ventricular hypertrophy. Preserved left ventricular systolic function. Left ventricular ejection fraction is 55-60% by visual estimate.
3. Well seated mechanical aortic valve replacement. Peak/mean gradients across the aortic valve are 7/4 mmHg respectively. No aortic regurgitation.
4. Moderate tricuspid regurgitation. Estimated pulmonary artery pressure of 39 mmHg assuming a right atrial pressure of 3 mmHg.
5. Thickened calcified mitral valve leaflets with adequate excursion. Dense mitral annular calcification. There is at least mild to moderate mitral regurgitation which may have been underestimated due to mitral annular calcification.
Acute on Chronic Left Hip Pain
-left hip greater trochanteric bursitis and gluteal tendinitis, follows Dr Caban
-Hip X-ray appreciated no acute fracture or dislocation
-Orthopedic eval appreciated steroid injection given 09/04/25- ice and tylenol prn
-PT eval
Electrolyte abnormality
-hypocalcemia- repleted
DVT ppx SCD
DNR as per POA Uziel
Anticipated Discharge: > 48 hours
Subjective/Interval History
-
Date of Service: September 06, 2025
Patient is more alert today. She has slurred speech. Denies sore throat, trouble with swallowing. She still has left hip pain rates 5/10. No bms, no SOB, Chest pain.
Objective Data
-
Labs:
Laboratory Results
09/06/25
04:08
WBC 22.0 H
Hgb 11.9 L
Hct 36.9 L
Plt Count 181
PT 26.1 H
INR 2.39
Sodium 135
Potassium 5.2 H
Chloride 112 H
Carbon Dioxide 16 L
BUN 58 H
Creatinine 1.8 H
Glucose 105 H
Calcium 8.3 L
Total Bilirubin 0.5
AST 45 H
ALT 18
Alkaline Phosphatase 111
Vital Signs:
Vital Signs
Temp Pulse Resp BP Pulse Ox
97.9 F 86 17 137/64 98
09/06/25 08:07 09/06/25 06:00 09/06/25 06:00 09/06/25 06:00 09/06/25 06:00
I&O
09/05/25 09/06/25 09/07/25
06:59 06:59 06:59
Intake Total 2819.5 / 2922.0 2162.5 / 2162.5
Output Total 395 / 415 765 / 765
Balance 2424.5 / 2507.0 1397.5 / 1397.5
Review of Systems
-
History Source: Patient
Constitutional: Reports Weakness (left leg)
Respiratory: Reports No Symptoms
Cardiac: Reports No Symptoms
Abdomen/GI: Reports No Symptoms
Breast: Reports No Symptoms
Genitourinary: Reports No Symptoms
Musculoskeletal: Reports Joint Swelling (left hip)
Skin: Reports No Symptoms
Neuro: Reports No Symptoms
Endocrine: Reports No Symptoms
Hematologic / Lymphatic: Reports Swollen Glands (right and left cervical LAP)
Allergy / Immunology: Reports No Symptoms
Physical Exam
-
General: Well Developed, Well Nourished and Pain
HEENT: Normocephalic, Atraumatic and Pharyngeal Erythema (goss patch)
Respiratory: Clear to Auscultation
Cardiac: Regular Rhythm and S1/S2
Breast: Deferred by me
GI: Soft, Nontender, Nondistended and Normal Bowel Sounds
Rectal: Deferred by Provider
Genito-urinary: Lynn
Musculoskeletal: No Clubbing, No Cyanosis and No Edema
Skin: Warm and Dry
Neuro: AO x 3
Psych: Calm
--- NOTE | 2025-09-06 09:27 | W.PN.NEURO.1 ---
Addendum entered and electronically signed by Daquan Garcia MD 09/06/25 12:15:
Studies reviewed.
I have personally examined the patient. I reviewed and agree with the TREE PLANTER's Note.
My addenda:
Awake, alert, interactive. No acute distress.
Speech thick.
No tremor.
Extra-ocular movements grossly intact.
Facial movements full and symmetric. Hearing intact to normal conversational volume.
Neck: full ROM.
Chest: no dyspnea
Heart: no JVD
Ext: (-) Clubbing, (-) Cyanosis, (-) Edema
IMPRESSIONS/RECOMMENDATIONS:
Abrupt onset of worsening speech which is secondary likely to recurrent acute ischemic stroke where the patient has experienced prior stroke in 2020. Additionally, there are posterior circulation areas of ischemia which are suggestive of embolic
stroke in bilateral occipital lobes
Patient should be provided with anticoagulation as the risk of hemorrhagic conversion of the exceedingly small posterior lesions is unlikely. Would avoid boluses of heparin IV
Patient should undergo DAVE due to the risk of septic emboli, appreciate cardiology evaluation
Continue NIH stroke scale
D/W patient
All questions answered.
Will continue to follow peripherally.
Original Note:
Documented by User: Huma Arriaza NP 09/06/25 11:51
Today's Communication / Plan
-
.
Neuro Assessment/Plan
Assessment
IMPRESSIONS/RECOMMENDATIONS:
Abrupt onset of change in mental status, dysphagia, and dysarthria; most likely due to acute/subacute infarcts in bilateral occipital lobes, choroid plexus, and extension of previous right frontal lobe infarct. Given elevated WBC count and embolic
appearance of stroke, there is some concern for septic emboli.
-MRI brain 09/05/25: There is no MR evidence for intracranial metastatic disease. There are small foci of acute to subacute infarct involving both occipital lobes as described. Focal region of abnormal restricted diffusion involving the choroid
plexus within the atria of the right lateral ventricle. Given the findings in the occipital lobe, this is suspicious for a focus of acute to subacute infarct involving the choroid plexus, although can also be seen with choroid plexus
xanthogranuloma. Focal area of encephalomalacia involving the inferior right frontal and superior right temporal lobe, in the region of the insula. There is a region of abnormal diffusion extending superiorly and anteriorly to the region of
encephalomalacia, and signal abnormality extends appears increased compared to previous MRI in June 2021. Findings would suggest focal area of acute to subacute infarct in the right frontal lobe, superior to the region of encephalomalacia.
-Carotid ultrasound 09/05/25: Minimal calcified carotid bulb plaque on each side, measurements suggestive of less than 50% stenosis on each side.
Plan
-DAVE pending.
-Would continue home warfarin when medically cleared as infarcts are small.
-Goal normotension.
-LDL goal <70. LDL is 25. Okay to remain off of statin therapy as LDL is well below goal.
-Goal normoglycemia, hbA1c is pending.
-NIHSS and neurological checks per unit guidelines.
-Provide patient with a stroke education packet.
-PT/OT/ST evaluations.
Subjective/Objective
Subjective Data
Date of Service: September 06, 2025
No acute events overnight. NGT is out today, patient reports that her speech is still garbled and not at her baseline.
Objective Data
Vital Signs
Temp Pulse Resp BP Pulse Ox
97.9 F 86 17 137/64 98
09/06/25 08:07 09/06/25 06:00 09/06/25 06:00 09/06/25 06:00 09/06/25 06:00
Lab Results
09/06/25 04:08
09/06/25 04:08
PT 26.1 Sec (11.4-14.6) H 09/06/25 04:08
INR 2.39 09/06/25 04:08
APTT 56.1 Sec (23.4-35.0) H 09/05/25 05:25
Sodium 135 mmol/L (135-145) 09/06/25 04:08
Potassium 5.2 mmol/L (3.5-5.1) H 09/06/25 04:08
BUN 58 mg/dl (7-17) H 09/06/25 04:08
Glucose 105 mg/dl (70-99) H 09/06/25 04:08
Calcium 8.3 mg/dl (8.4-10.2) L 09/06/25 04:08
Phosphorus 2.9 mg/dl (2.5-4.5) 09/05/25 06:07
Csm-I-Uygrjhutcul Pept 5770 pg/ml 09/04/25 00:03
LDL Cholesterol, Calc 25 mg/dl 09/05/25 06:07
Patient Allergies
palbociclib (From Ibrance) Allergy (Verified 09/04/25 00:10)
Tongue Swelling
Penicillins Allergy (Verified 09/04/25 00:10)
throat swelling- tolertates amoxicillin
tramadol Allergy (Verified 09/04/25 00:10)
throat swelling
Review of Systems
-
History Source: Patient
EENT: Swallowing Difficulty
Neuro: Speech Problem
Physical Exam
-
General: Wearing Oxygen
Eyes: No Ptosis and PERRLA
HEENT: Normocephalic and Atraumatic
Respiratory: No Dyspnea
GI: Non-distended
Extremities: No Clubbing, No Cyanosis and No Edema
Extended Neurological Exam
Mood & Affect: Mood Unremarkable and Affect Unremarkable
Attention Span & Concentration: Awake, Alert and Interactive
Memory: Unremarkable and Able to Recall
Tremor: Hand Tremor Absent and Head Tremor Absent
Involuntary Movement: None
Speech: Dysarthric and Paraphasic Errors
Cranial Nerves III, IV, : Extraocular Movement: Extraocular Movement Full in all Directions
Cranial Nerve VII: Facial Symmetry: Reduced (left facial drooping at rest/with movement)
Cranial Nerve VIII: Hearing: Unremarkable Hearing to Normal Conversational Volume
Muscle Strength, Overall: Full Throughout
Modified Copiah Score (MRS)
-
Modified Cop[place] Scale (mRS): Moderate disability. Requires some help, able to walk unassisted.
Score: 3
Data Reviewed
-
MRI Head: Report Reviewed and Image Reviewed
Carotid Ultrasound: Report Reviewed
Labs: Report Reviewed
Lipid Profile: Report Reviewed
HgbA1C: Report Reviewed
Reviewed with: Physician and Patient
Medications
-
Active Medications
Generic Name Dose Route Start Last Admin
Trade Name Freq PRN Reason Stop Dose Admin
Acetaminophen 650 mg 09/04/25 18:09
Acetaminophen 650 Mg Rectal Suppository RECTAL 10/02/25 18:08
On Hold: 09/05/25 04:29 Q4HPRN PRN
ALLEN, mild pain, or temp >100.4F
Acetaminophen 650 mg 09/04/25 18:09
Acetaminophen 325 Mg Tablet PO 10/02/25 18:08
On Hold: 09/05/25 04:29 Q4HPRN PRN
ALLEN, mild pain, or temp >100.4F
Artificial Tears 1 drops 09/04/25 07:08
Artificial Tears Pf (Refresh) 10 Drop Droperette BOTH EYES 10/02/25 07:07
QIDPRN PRN
dry eye
Benzocaine/Menthol 1 lozenge 09/05/25 23:40 09/05/25 23:44
Benzocaine/Menthol Lozenge PO 10/03/25 23:39 1 lozenge
Q4HPRN PRN Administration
sore throat
Ceftriaxone Sodium 2,000 mg 09/05/25 12:00 09/05/25 13:49
Ceftriaxone 2,000 Mg/20 Ml Vial IV 2,000 mg
Q24H PIETER Administration
Hydromorphone HCl 0.25 mg 09/06/25 04:11 09/06/25 09:00
Hydromorphone 0.25 Mg/0.5 Ml Syringe IV 09/20/25 04:10 0.25 mg
Q4HPRN PRN Administration
severe pain
Heparin Sodium 25,000 units in 250 mls @ 0 mls/hr 09/06/25 15:00
Heparin 56470 Units/250 Ml IV
PER PROTOCOL PIETER
Protocol
Per Protocol
Levothyroxine Sodium 88 mcg 09/04/25 07:00 09/06/25 06:26
Levothyroxine 88 Mcg Tablet PO 10/02/25 06:59 Not Given
DAILY AT 0700 PIETER
Metoprolol Succinate 50 mg 09/04/25 08:00 09/04/25 08:18
Metoprolol 50 Mg Extended Release Tablet PO 10/02/25 07:59 Not Given
On Hold: 09/04/25 19:39 BID PIETER
Ondansetron HCl 4 mg 09/04/25 06:59 09/04/25 13:54
Ondansetron 4 Mg/2 Ml Vial IV 10/02/25 06:58 4 mg
Q6HPRN PRN Administration
nausea and vomiting
Pantoprazole Sodium 40 mg 09/06/25 08:00 09/06/25 09:00
Pantoprazole Sodium 40 Mg/10 Ml Vial IV 10/04/25 07:59 40 mg
BID PIETER Administration
Prochlorperazine Edisylate 5 mg 09/04/25 17:03 09/04/25 17:08
Prochlorperazine 10 Mg/2 Ml Vial IV 10/02/25 17:02 5 mg
Q6HPRN PRN Administration
nausea vomiting
Sodium Chloride 0 flush 09/04/25 08:00
Sodium Chloride 0.9% (Flush) Syringe IV 10/02/25 07:59
PER PROTOCOL PIETER
Sodium Chloride 0 flush 09/05/25 12:00 09/06/25 10:08
0.9% Nacl Flush If Lactated Ringers Ivf Ordered IV 10/03/25 11:59 Not Given
Q24H PIETER
Sodium Chloride 10 ml 09/06/25 08:00 09/06/25 09:00
Sodium Chloride 0.9% (Preservative Free) 10 Ml Vial IV 10/04/25 07:59 10 ml
BID PIETER Administration
Sterile Water 20 ml 09/05/25 12:00 09/05/25 13:48
Sterile Water For Injection 20 Ml Vial IV 10/03/25 11:59 20 ml
Q24H PIETER Administration
Home Medications
�Medication �Instructions �Recorded
levothyroxine 88 mcg tablet 88 mcg PO DAILY AT 0700 Thyroid 07/16/21
metoprolol succinate 50 mg 50 mg PO BID Blood Pressure 10/24/24
tablet,extended release 24 hr
furosemide 20 mg tablet (Lasix) 20 mg PO SUTUTHSA@0800 Fluid 05/06/25
Retention/Swelling
furosemide 40 mg tablet 40 mg PO MOWEFR@0800 Fluid 05/06/25
Retention/Swelling
lorazepam 0.5 mg tablet 0.5 mg PO BIDPRN PRN anxiety 05/06/25
dextran 70-hypromellose eye drops 1 drp BOTH EYES QIDPRN PRN dry eye 05/27/25
in a dropperette (Artificial Tears
(PF) drops in a dropperette)
pantoprazole 40 mg tablet,delayed 40 mg PO DAILY Gastrointestinal 05/27/25
release (Protonix) Issue
warfarin 1 mg tablet 2.5 mg PO DAILY Blood Clot 09/04/25
Prevention/Tx

Documented by User: Daquan Garcia MD 09/06/25 12:06
Modified Cop[place] Score (MRS)
-
Score: 3
--- NOTE | 2025-09-06 09:38 | W.PN.ID1 ---
Date of Service
Date of Service: September 06, 2025
Today's Communication
See below.
Assessment / Plan
# Group A streptococcus bacteremia
# Suspect PNA source of Group A strep
# Septic shock on pressor, weaning pressor
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
# Fever resolved
# Leukocytosis
# Left hip pain/trochanteric bursitis/gluteus tendinitis s/p left hip injection x 2
# Gastroparesis, recurrent obscure coffee-groung emesis
# Hx Splenectomy
# Stage 3 breast ca (not on tx)
# Mechanical AVR
- with Group A strep pharyngitis
Swab pt's throat negative rapid strep
- TTE no significant change compared to 07/25/25 TTE, no gross vege
May need DAVE as workup of embolic CVA.
- Increased small-mod right pleural effusion with lateral loculation
For thoracentesis, per Communications Instructor
- Repeat blood cx's x 2 pending
- Continue with ceftriaxone.
- Follow wbc, vitals.
Chief Complaint
-: Clinical Sepsis and Bacteremia
Subjective / Review of Systems
+ cough, unable to produce
Left hip pain controlled
Vital Signs / Physical Exam
Vital Signs
Vital Signs
Temp Pulse Resp BP Pulse Ox
97.9 F 86 17 137/64 98
09/06/25 08:07 09/06/25 06:00 09/06/25 06:00 09/06/25 06:00 09/06/25 06:00
Physical Exam
Constitutional: Acutely Ill and Cachetic
Head: Other (NGT in place)
Eyes: No Conjunctival Hemorrhage and Sclera Anicteric
Pulmonary: Rales (bases)
Gastrointestinal: Soft, Non Tender and Non Distended
Genito-Urinary: Negative CVA Tenderness
Extremities: Negative Edema or Erythema
Musculoskeletal: Other (Left hip no erythema/warmth, able to flex)
Neurological: Awake
Lines: Other (LUE midline)
Objective Data
Lab Data
Lab Results
09/06/25 04:08
09/06/25 04:08
PT 26.1 Sec (11.4-14.6) H 09/06/25 04:08
INR 2.39 09/06/25 04:08
APTT 56.1 Sec (23.4-35.0) H 09/05/25 05:25
Estimated Creat Clear 18 ml/min 09/06/25 04:08
Lactic Acid 1.9 mmol/L (0.7-2.0) 09/05/25 21:46
Total Bilirubin 0.5 mg/dl (0.2-1.3) 09/06/25 04:08
AST 45 U/L (14-36) H 09/06/25 04:08
ALT 18 U/L (0-35) 09/06/25 04:08
Alkaline Phosphatase 111 U/L (38-126) 09/06/25 04:08
Most recent labs reviewed.
Micro Results:
09/05/25 13:59 Streptococcus Screen (VANDANA) - Preliminary
Throat/Pharynx Culture in Progress
Streptococcus Rapid Screen - Final
Rapid Strep Screen (Group A) Negative
09/05/25 13:59 Throat Culture - Preliminary
Throat/Pharynx Usual Respiratory Tawnya
09/06/25 04:18 Blood Culture - Pending
Blood/Venous
09/05/25 14:28 Blood Culture - Pending
Blood/Venous
09/04/25 02:51 Urine Culture - Final
Urine NO GROWTH
09/04/25 02:50 Blood Culture - Preliminary
Blood/Venous Streptococcus pyogenes
Gram Stain - Final
09/04/25 02:50 Blood Culture - Preliminary
Blood/Venous Streptococcus pyogenes
Gram Stain - Final
09/06/25 CXR: Interval increase in opacification of the right lower lung, most likely atelectasis. Evidence for small to moderate right pleural effusion including lateral loculation. Small left pleural effusion. Parenchymal opacity within the left
lower lung, mainly medially, with differential considerations of atelectasis and/or pneumonia.
11/05/24 Brain MRI: There are small foci of acute to subacute infarct involving both occipital lobes; suspicious for a focus of acute to subacute infarct involving the choroid plexus, although can also be seen with choroid plexus xanthogranuloma.
Findings would suggest focal area of acute to subacute infarct in the right frontal lobe, superior to the region of encephalomalacia.
09/04/25 CXR: The lungs are clear.
09/04/25 CT a/P: Markedly limited CT of the abdomen and pelvis as a result of numerous factors,
09/04/[address]: At least 3 cm focus of decreased attenuation centered about the right sylvian fissure which could represent an intracranial mass with edema such as metastatic disease. Subacute to chronic infarct cannot be differentiated on this CT
without intravenous contrast. Recommend Brain MRI without and with contrast for more complete evaluation.
09/04/25 L HIP XRAY:No acute fracture or dislocation. The hip joint space is maintained. Gluteus medius calcific tendinosis.
08/17/25 outside MRI wo contrast left hip report: ' There is evidence of a tear of the distal gluteus minimus muscle and tendon at the level of the greater trochanter with evidence of peritrochanteric edema and fluid. Incidental inguinal lymph
nodes are noted bilaterally.
Care Review
Plan reviewed with: Physician (Dr. Greenfield)
[2025-09-06] MEDS: FLUSH (NSS) IV (10:08)
--- NOTE | 2025-09-06 10:55 | PN.CDI ---
CDI
- -
CDI:
Physician Documentation Request
Admit Date: 09/04/25 05:43
Dear Doctor,
Please review the following and provide your response in the progress notes.
Clinical Indicators:
Pt admitted with Acute on Chronic Left Hip Pain left hip greater trochanteric bursitis and gluteal tendinitis
Pt home medication includes Warfarin.
Warfarin has not bee given this admission.
09/04 Pt with coffee ground emesis
09/04 PN: Holding off on hep gtt for now given concerns active bleeding
Significant drop in Hgb noted 12.3 to 7.9, 1PRBC transfusion ordered
09/05 PN: Upper G bleed- monitor H and H, cont PPI ggt
Please clarify the relationship between these conditions:
Yes, GI Bleed is related to/associated with/exacerbated by Warfarin.
No, GI Bleed is not related to/associated with/exacerbated by Warfarin.
Other
Use of terms such as suspected, likely, concern for, or probable (associated with a specific diagnosis that is being evaluated, monitored, or treated as if it exists) are acceptable and can be coded in the inpatient setting, when documented at the
time of discharge.
Thank you,
Maureen Rangel RN, BSN
CDI Specialist
[place] [facility]
Please use your independent medical judgment in providing your response.
--- NOTE | 2025-09-06 11:41 | OR.RPT ---
Operative Report
Operative Report
Thoracentesis, Right
Indication: Bacteremia, concern for empyema
Consent: Signed consent obtained from the patient
Procedure. Patient was placed in sitting position and ultrasound was used to locate pleural fluid collection. Under sterile conditions, area was prepped cleaned and marked. With real-time ultrasound guidance, 1 mL of local lidocaine was injected
under the skin. Couple of minutes later needle was gently advanced under real-time ultrasound guidance, under suction, until pleural fluid was aspirated. Additional lidocaine was injected at the pleural site and also in the track while needle was
being withdrawn. A small skin mariaelena about 5 mm was placed with a scalpel. Thoracentesis catheter was gently advanced under suction until pleural fluid was aspirated. Once pleural fluid noted in the syringe, needle was held still and a flexible
catheter was advanced into the pleural space. Needle was subsequently withdrawn and connecting tube was attached to the pleural catheter. Fluid was collected and sent for cultures, cytology as well as chemistry studies. Tubing was then connected
to suction container, a total of 660 mL of serosanguineous fluid was collected. Catheter was then withdrawn and occlusive dressing was placed.
Ultrasound was used to confirm presence of lung sliding in the lung apex. Minimal residual pleural fluid was noted on ultrasound.
Complications: None. Postprocedure chest x-ray without any pneumothorax
Blood loss: 1 to 2 mL
Time spent: 30 minutes
Date of procedure: 09/06/2025
--- NOTE | 2025-09-06 11:53 | PTOTSP ---
Speech Therapy Evaluation:
Pt presents w/ acute (acute CVA, altered mental status) and chronic (chronic CVA, reports hx of radiation to head/neck) risk factors for aspiration/dysphagia. It is recommended that pt is placed on a cautious diet of IDDSI 6 Soft & Bite Size, Single
cup sip Thins. ST to F/U to observe diet level tolerance and determine if further instrumental swallow study warranted to objectively rule out aspiration.
Quick Aphasia Battery (QAB) administered to assess language domains given acute CVA and speech changes. Pt score of 9.72 indicates no aphasia. Mild-moderate dysarthria characterized by imprecise articulation and strained/hypernasal vocal quality
noted in conversational speech. Motor speech strategies reviewed and ST to F/U for further treatment and cognitive assessment.
Recommendations:
1. IDDSI 6 Soft & Bite Size, Single-cup sip Thins
2. Medications as best tolerated
3. Partial assistance/supervision w/ meals
4. Strategies: Single sips/small bites, alternating liquid washes, reflux precautions, oral care 3-4x day and before P.O. intake.
5. F/U w/ ST to observe diet level tolerance, trial diet advancements, determine if instrumental swallow study warranted to objectively rule-our aspiration, and for further motor speech/cognitive assessment and treatment.
[2025-09-06] MEDS: ROCEPHIN 2000 MG IV (12:02)
[2025-09-06 12:03] LABS: Body Fluid Second Tech CF
[2025-09-06] MEDS: STERILE WATER FOR INJECTION 20 ML IV (12:03)
--- NOTE | 2025-09-06 12:11 | CON.CAR ---
Addendum entered and electronically signed by Maurice Trent DO 09/06/25 17:26:
I saw and examined the patient.
The Postal Inspector's note was reviewed and I agree with the note.
Comment:
Plan:
Admitted 09/04/2025 with left hip pain then developed acute altered mental status and slurred speech and was found to have septic shock requiring pressors which have been weaned.
Pt with Group A Streptococcus bacteremia. Patient found to have new acute to subacute strokes, neurology concerned about possible septic emboli and requesting DAVE
Continue antibiotics per primary service and ID. Unclear source of bacteremia
Reviewed DAVE with the patient and she was agreeable. Discussed the risks and benefits and procedure. She agrees to proceed
Echocardiogram this admission with preserved LV function well-seated mechanical AVR with no evidence of vegetation or thrombus.
Patient is maintained on Coumadin with INR goal 2.5-3.5.
Right pleural effusion Status post right thoracentesis for 660 mL of blood tinged fluid
History of recurrent GI bleed. Patient has been cleared by GI for DAVE.
Original Note:
Consultation
Consultation Request
Date/Time Consultation Requested: 09/06/2025
Date/Time Consultation Performed: 09/06/2025
Requesting Provider: Radha Harding DO/resident
Performing Provider: Gaye Ho PA-C for Dr. Maurice Trent
Reason for Consultation: Bacteremia with history of mechanical mitral valve
Medical History
-
History of Present Illness:
Patient is a 69-year-old female with complex past medical history including aortic stenosis with pediatric mechanical mitral valve replacement on chronic anticoagulation with Coumadin, coronary artery disease with chronic total occlusion of RCA with
collaterals, mitral regurgitation with mitral stenosis, tricuspid regurgitation with pulmonary hypertension, Hodgkin's lymphoma status post XRT, breast cancer with bilateral mastectomy with recurrent breast cancer, labile hypertension,
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 Patient had seen orthopedics on several
occasions for similar complaints and was given localized steroid injection for suspected left hip greater trochanteric bursitis and gluteal tendinitis. Pain initially improved but then returned prompting her to come to ER. Patient was found to
have increased lethargy, disorientation and altered mental status in emergency department and underwent head CT which was suggestive of mass with edema suspicious for metastasis versus stroke. She was noted to have elevated lactate and positive
blood cultures for Streptococcus pyogenes concerning for septic shock. She was found to have right sided pleural effusion and underwent thoracentesis 09/06/2025 with removal of 660 mL of blood tinged fluid.
At time of this evaluation patient resting comfortably in bed with at bedside. Mentation continues to improve. Unfortunately patient continues to have dysarthria.
PMH:
Recent
h/o recurrent GIB, with multiple admissions in October 2023, April and May 2025
Chronic warfarin OAC managed by [facility] cardiology
h/o CVA
h/o CVA 2005
h/o right MCA stroke with M2 occlusion in setting of subtherapeutic INR while off Coumadin 07/15/21
patient bridged with Lovenox prior to colonoscopy 07/10/21, but no Lovenox bridge post-colonoscopy
Mechanical AVR pediatric size 2006
Mitral regurgitation with mitral stenosis
Tricuspid regurgitation with pulmonary hypertension
h/o Hodgkin's lymphoma treated with radiation to left neck and pelvis 1973
h/o breast CA
2018 treated with B/L mastectomy, patient refused chemotherapy and radiation, but eventually agreeable to Tamoxifen
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
Recurrence of breast cancer 2021 - did not tolerate Ibrance or Ribociclib
Labile HTN
Hypothyroidism
Chronic HFpEF
CAD with 60 to 70% ostial to proximal LM stenosis, 100% BINDER CUTTER proximal RCA with [id number] collaterals by cardiac cath 10/28/2024
Past Medical History
Past Medical History: Other (In HPI)
Past Surgical History: Cardiac ([facility] mechanical aortic valve), and Other (Bilateral mastectomy 2018, thyroidectomy, splenectomy)
Social History
Tobacco: Former Smoker
Alcohol: Occasional
Drug: None
Personal:
Living: With Family
Family History
Family History: CAD and Cancer
Allergies / Home Medications
Allergy/AdvReac Type Severity Reaction Status Date / Time
palbociclib (From [facility] [place]) Allergy Tongue Verified 09/04/25 00:10
Swelling
Penicillins Allergy throat Verified 09/04/25 00:10
swelling-
tolertates
amoxicillin
tramadol Allergy throat Verified 09/04/25 00:10
swelling
�Medication �Instructions �Recorded �Confirmed �Type
levothyroxine 88 mcg tablet 88 mcg PO DAILY AT 0700 Thyroid 07/16/21 09/04/25 History
metoprolol succinate 50 mg 50 mg PO BID Blood Pressure 10/24/24 09/04/25 History
tablet,extended release 24 hr
furosemide 20 mg tablet (Lasix) 20 mg PO SUTUTHSA@0800 Fluid 05/06/25 09/04/25 History
Retention/Swelling
furosemide 40 mg tablet 40 mg PO MOWEFR@0800 Fluid 05/06/25 09/04/25 History
Retention/Swelling
lorazepam 0.5 mg tablet 0.5 mg PO BIDPRN PRN anxiety 05/06/25 09/04/25 History
dextran 70-hypromellose eye drops 1 drp BOTH EYES QIDPRN PRN dry eye 05/27/25 09/04/25 History
in a dropperette (Artificial Tears
(PF) drops in a dropperette)
pantoprazole 40 mg tablet,delayed 40 mg PO DAILY Gastrointestinal 05/27/25 09/04/25 History
release (Protonix) Issue
warfarin 1 mg tablet 2.5 mg PO DAILY Blood Clot 09/04/25 09/04/25 History
Prevention/Tx
Review of Systems
-
History Source: Patient and Family
Physical Exam
Vital Signs
Temp Pulse Resp BP Pulse Ox
97.9 F 94 17 173/71 97
09/06/25 08:07 09/06/25 09:00 09/06/25 09:00 09/06/25 09:00 09/06/25 10:05
GEN: No distress, awake, Ox3
HEENT: supple, anicteric, mmm
LUNGS: Mildly decreased at right base with fine crackles, mildly decreased at left base otherwise CTA, no wheezes/rales
CV: Reg, S1/S2, 1/6 syst murmur, audible click of mechanical valve
ABD: soft, BS+, NT/ND
EXT: No edema, clubbing or cyanosis
NEURO: Gross non-focal
SKIN: No rash, warm, dry, pink
Lab Results
09/06/25 04:08
09/06/25 04:08
Troponin I 0.025 ng/ml 09/04/25 02:51
[id number] Pept 5770 pg/ml 09/04/25 00:03
Impression / Plan
-
PCP: Dr. Haynes
Cardiology: Dr. Aramis Resendez
Oncology: Dr. Amaral
Impression:
Admitted 09/04/2025 with left hip pain
TME
Septic shock requiring pressors
Group A Streptococcus bacteremia
Suspected pneumonia
Right pleural effusion
Status post right thoracentesis for 660 mL of blood tinged fluid
Dysphagia, dysarthria likely secondary to acute/subacute infarcts in bilateral occipital lobes, choroid plexus, and extension of previous right frontal lobe infarct
Left hip pain/trochanteric bursitis/gluteus tendinitis s/p left hip injection x 2 as outpatient
h/o recurrent GIB ( 05/02/25 until 05/05/25, readmitted 05/06/25)
Chronic warfarin OAC managed by [facility] cardiology
h/o CVA
h/o CVA 2005
h/o right MCA stroke with M2 occlusion in setting of subtherapeutic INR while off Coumadin 07/15/21
patient bridged with Lovenox prior to colonoscopy 07/10/21, but no Lovenox bridge post-colonoscopy
Mechanical AVR pediatric size 2006
Mitral regurgitation with mitral stenosis
Tricuspid regurgitation with pulmonary hypertension
h/o Hodgkin's lymphoma treated with radiation to left neck and pelvis 1973
h/o breast CA
2018 treated with B/L mastectomy, patient refused chemotherapy and radiation, but eventually agreeable to Tamoxifen
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
Recurrence of breast cancer 2021 - did not tolerate Ibrance or Ribociclib
Labile HTN
Hypothyroidism
Chronic HFpEF
CAD with 60 to 70% ostial to proximal LM stenosis, 100% BINDER CUTTER proximal RCA with [id number] collaterals by cardiac cath 10/28/2024
LHC 10/28/2024: Eccentric 60-70% ostial to proximal Left main, difficult to advance IVUS catheter. iFR positive at 0.76. Elevated filling pressures, normal cardiac output/index, occluded right coronary artery with brisk collater, Nonobstructive plaque
of LAD and circumflex, pulmonary artery pressure 62/26, pulmonary capillary wedge pressure is 22, right atrial pressure is 11, cardiac index is 2.5
Echo 08/26/2022: Hyperdynamic LV.� EF 70 to 75%.� Mild to moderate MS peak/mean gradient 20/7 mmHg.� Moderate to severe MR.� Well-seated mechanical AVR with peak/mean gradient 11/6 mmHg without regurgitation.� Moderate to severe TR.� Moderate
pulmonary hypertension with PAP 50 to 55 mmHg.
Echo 02/10/2023: EF 60 to 65%.� Moderate mitral stenosis mean gradient 11 with severe MR.� Well-seated mechanical AVR with peak/mean gradient 15/8 mmHg, mild to moderate TR, mild pulmonary hypertension with PAP 45 to 48 mmHg.
Echo 11/19/2023: EF 70-75%, moderate MS with peak/mean gradients 15/8 mmHg, moderate MR, mechanical prosthetic AVR with peak/mean gradients 16/9 mmHg, trace AR, moderate TR, estimated PAP 30-35 mmHg
Echo 10/25/24: EF 55-60%, moderate mitral stenosis with mean gradient of 8 mmHg, mild to moderate MR, mechanical AVR with mean gradient of 10, no AI, mild to moderate TR with PA pressure 40-45
Echo 09/05/2025: EF 55 to 60%. Mild LVH. Mildly dilated LA and RA. Mild to moderate mitral regurgitation. Well-seated mechanical aortic valve peak/mean gradient 7/4 mmHg. No AI. Moderate TR with PAP 39 mmHg.
MRI brain 09/05/25: There is no MR evidence for intracranial metastatic disease. There are small foci of acute to subacute infarct involving both occipital lobes as described. Focal region of abnormal restricted diffusion involving the choroid
plexus within the atria of the right lateral ventricle. Given the findings in the occipital lobe, this is suspicious for a focus of acute to subacute infarct involving the choroid plexus, although can also be seen with choroid plexus
xanthogranuloma. Focal area of encephalomalacia involving the inferior right frontal and superior right temporal lobe, in the region of the insula. There is a region of abnormal diffusion extending superiorly and anteriorly to the region of
encephalomalacia, and signal abnormality extends appears increased compared to previous MRI in June 2021. Findings would suggest focal area of acute to subacute infarct in the right frontal lobe, superior to the region of encephalomalacia.
-Carotid ultrasound 09/05/25: Minimal calcified carotid bulb plaque on each side, measurements suggestive of less than 50% stenosis on each side.
Plan:
-Admitted 09/04/2025 with left hip pain then developed acute altered mental status and slurred speech and was found to have septic shock requiring pressors which have been weaned.
-Group A Streptococcus bacteremia. Unclear source. ID following. Continue antibiotics per primary service
-Patient found to have new acute to subacute strokes involving posterior circulation and in bilateral occipital lobes suggestive of embolic source on MRI. Neurology following.
-Echocardiogram this admission demonstrates EF of 55 to 60% with mild to moderate MR and well-seated mechanical aortic valve with peak/mean gradient 7/4 mmHg and no paravalvular leak. No gross evidence of vegetation or thrombus.
-Patient has history of pediatric mechanical aortic valve maintained on Coumadin as outpatient with goal INR 2.5-3.5. INR currently 2.39. Continue with Coumadin 2.5 mg at this evening.
-Given bacteremia, new strokes and history of mechanical valve ID and neurology requesting DAVE. Make n.p.o. after midnight
-Right pleural effusion Status post right thoracentesis for 660 mL of blood tinged fluid
-History of recurrent GI bleed. Some concern for emesis early on in admission. Patient had NG tube which was pulled 09/06/2025 with no significant finding of coffee-ground emesis. Hemoglobin remains stable at 13.6. Patient does have history of
recurrent GI bleeds of unclear source.
-Ongoing dysphagia, dysarthria likely secondary to acute/subacute infarcts in bilateral occipital lobes, choroid plexus, and extension of previous right frontal lobe infarct. Evaluated by speech therapy. Recommending IDDSI 6 soft and bite-size
diet.
Data Reviewed
-
EKG: Report Reviewed by me, Discussed with Physician, Discussed with Nurse, Discussed with Patient and Discussed with Family
Radiology: Report Reviewed by me, Discussed with Physician, Discussed with Nurse, Discussed with Patient and Discussed with Family
CT Scan: Report Reviewed by me, Discussed with Physician, Discussed with Nurse, Discussed with Patient and Discussed with Family
MRI: Image Personally Visualized and interpreted, Report Reviewed by me, Discussed with Physician, Discussed with Nurse, Discussed with Patient and Discussed with Family
--- NOTE | 2025-09-06 12:25 | W.PN.INTV ---
Today's Communication / Plan
Recommendations
- Bedside thoracentesis performed, await pleural fluid studies including cultures, cytology
- Discontinue IV fluids, give lasix 20 mg IV x 1. BNP in AM.
- Discontinue NG tube, initiate p.o. feeding
- Discontinue IV Protonix infusion, switch to IV PPI twice daily
- Start heparin infusion
Assessment
-
Patient is a 69-year-old female who was admitted to the hospital on 09/04 with chief complaint of left hip pain. Patient had a hip x-ray performed on admission which was unrevealing without any evidence of fracture. Patient has a complex medical
history with prior history of Hodgkin's lymphoma treated with radiation, breast cancer, aortic stenosis s/p mechanical valve replacement on chronic Coumadin therapy as well as multiple episodes of GI bleed with unrevealing EGD and colonoscopy with
concern for small bowel AVMs. Patient has had blood transfusions in the past for anemia. Reportedly patient developed left pain on the hip area, couple of days prior to admission which has been steadily worsening. Patient was evaluated by
orthopedic surgery as outpatient and had a localized steroid injection about 10 days ago for suspected left hip greater trochanteric bursitis and gluteal tendinitis. Patient had another injection of Kenalog 40 mg along with lidocaine on 09/04.
Patient reports improved pain since. In view of recurrence of pain she presented to the emergency room.
Hospital course was complicated by increased lethargy, disorientation and altered mental status which prompted a CT head which was suggestive of a mass with edema suspicious for metastasis versus old stroke. Patient also noted to have elevated
lactate and subsequently positive blood cultures with Streptococcus pyogenes. In view of septic shock and altered mental status, patient had a rapid response event called and was transferred to ICU for further management. [facility] consultation
was requested for further input.
#1. Septic shock with lactic acidosis
- Resolved, weaned off pressirs now.
- Blood cultures positive for Strep Pyogenes. Suspect related to RLL Pneumonia
- Recent diagnosis of greater trochanter bursitis/gluteal tendinitis s/p steroid injection. Also history of aortic valve replacement, @-D Echo negative for vegetations. Await DAVE
- Lactate elevated at 3.5, down trending.
- Await pleural fluid cultures
#2. Acute blood loss anemia, recurrent
- Coffee-ground emesis noted after admission, NG tube in place, to low intermittent suction.
- Hb 12.3 > 7.9 > 8.7 > 13.2
- EGC and Colonoscopy in the past unrevealing for bleeding source. ?Small bowel AVMs.
- Hb stable. d/c NG tube, switch to PPI BID
- Start PO feeding
#3. Right sided pleural effusion
- 09/06, POCUS suggestive of moderate effusion
- Bedside Ultrasound performed with 660 ml of sero-sanguinous fluid removed, await fluid studies.
- Trace left sided effusion also develoing. D/c IVF, give lasix 20 mg IV x 1.
#4. [place] with underlying CKD with mild hyperkalemia
- Cr peaked at 2.1, most recent 1.8
- Developing mild congestion of CXR with trace left sided effusion
- D/c IVF, lasix 20 mg IV x 1 dose, will help with kaliuresis as well.
#5. Acute metabolic encephalopathy with Brain lesions, metastasis vs old CVA
- MRI suggestive of CVA. Septic emboli also in differential diagnoses
- Septic shock also contributing to encephalopathy
- Garbled speech noted, neurology service on case, clinically improving.
- Plan for DAVE to evaluate for any vegetations.
#6. s/p AVR, mechanical valve
- Chronically on coumadin
- AC was held in view of acute drop in Hb and concern for brain emboli with bacteremia.
- d/w GI and Neurology service, resume heparin infusion.
#7. Pulmonary HTN
- RHC 10/2024, mPA 41, PCWP 22 with CI 2.5, PVR 5.8.
- Group II with h/o AVR, elevated PCWP. Also elevated PVR suggestive of concomitant pre-capillary Pulmonary HTN
Other medical diagnoses:
- H/o Breast cancer and Hodgkin's lymphoma
- HFpEF, LVEF 55-60%
- Hip pain, suspect tendonitis/bursitis
Hold anticoagulation in view of active bleeding.
PPI ongoing for GI prophylaxis.
Critical Care time 45 mins -- The patient is admitted for acute critical illness for the treatment of vital organ failure and/or prevention of further life-threatening conditions. Total care includes time spent in review of history, physical exam,
medications, hemodynamic/ventilator parameters, laboratory data, imaging and discussion with house staff, pharmacy, respiratory therapy, public transit specialist, and nursing.
Data:
CXR 08/2025: No acute disease of the chest.
Feeding tube placement as described above.
CT A/P 08/2025: Markedly limited CT of the abdomen and pelvis as a result of numerous factors, as detailed above, without findings to suggest intestinal obstruction or free air.
Air and fluid filled stomach, cannot exclude some gastric outlet obstruction or gastroparesis.
Cannot exclude some retroperitoneal/maria isabel hepatis lymphadenopathy, limited.
Small to moderate right pleural effusion and patchy bibasilar opacities which may be inflammatory/infectious.
CT Head 08/2025: At least 3 cm focus of decreased attenuation centered about the right sylvian fissure which could represent an intracranial mass with edema such as metastatic disease. Subacute to chronic infarct cannot be differentiated on this CT
without intravenous contrast. Recommend Brain MRI without and with contrast for more complete evaluation.
ECHO 07/2025: 1. Small left ventricle with normal wall thickness and preserved systolic function with septal contraction abnormality, EF 55-60%.
2. Mitral annular calcification, mitral leaflet thickening, at least moderate mitral regurgitation and mitral stenosis, peak/mean gradient 21/5 mmHg. Dilated left atrium.
3. Mechanical aortic valve replacement, peak/mean gradient 5/3 mmHg with trace aortic regurgitation.
4. Normal right heart with mild-moderate tricuspid regurgitation, pulmonary artery systolic pressure is 55 mmHg.
5. In October 2024 peak and mean aortic valve gradients were 17 and 10 mmHg, mitral regurgitation was mild to moderate with a mean gradient of 8 mmHg, and the pulmonary artery systolic pressure was 40-45 mmHg.
RHC & LHC 10/2024: RHC 10/2024, mPA 41, PCWP 22 with CI 2.5, PVR 5.8.
60-70% left main stenosis, inability to advance IVUS. TACO MAKER RCA wth L>R collaterals.
Subjective Dataa
Subjective Data
Date of Service:
Date of Service: September 06, 2025
Subjective:
Comfortably lying in bed in no acute distress
Review of Systems
Genitourinary: Other (All 14 systems reviewed and negative except as stated above in the history of present illness.)
Objective Data
Data Reviewed
Vital Signs / I&O / Oxygen:
Vital Signs
Temp Pulse Resp BP Pulse Ox
97.3 F 94 17 173/71 97
09/06/25 12:16 09/06/25 09:00 09/06/25 09:00 09/06/25 09:00 09/06/25 10:05
Intake and Output
09/05/25 09/06/25 09/07/25
06:59 06:59 06:59
Intake Total 2819.5 / 2922.0 2162.5 / 2222.5 170 / 170
Output Total 395 / 415 765 / 815 150 / 150
Balance 2424.5 / 2507.0 1397.5 / 1407.5 20 / 20
SaO2 97
Nasal Cannula flow liters per 2
minute
Physical Exam
General: Comfortable
HEENT: Normocephalic
Cardiovascular: S1-S2
Respiratory: Rhonchi (Right lower lobe )
GI: Soft and Non Distended
Neurology: Awake and Alert
Skin: Warm
Labs/Micro/Reports
Lab Data
09/06/25 04:08
09/06/25 04:08
Laboratory Results
09/06/25
04:08
PT 26.1 H
INR 2.39
Microbiology
09/05/25 13:59 Throat/Pharynx Streptococcus Screen (VANDANA) - Preliminary
Culture in Progress
09/05/25 13:59 Throat/Pharynx Streptococcus Rapid Screen - Final
Rapid Strep Screen (Group A) Negative
09/05/25 13:59 Throat/Pharynx Throat Culture - Preliminary
Usual Respiratory Tawnya
09/04/25 02:51 Urine Urine Culture - Final
NO GROWTH
09/04/25 02:50 Blood/Venous Blood Culture - Preliminary
Streptococcus pyogenes
09/04/25 02:50 Blood/Venous Gram Stain - Final
09/04/25 02:50 Blood/Venous Blood Culture - Preliminary
Streptococcus pyogenes
09/04/25 02:50 Blood/Venous Gram Stain - Final
[2025-09-06 12:51] LABS: LDH 263 U/L (120-246)
--- NOTE | 2025-09-06 13:26 | PTCARENOTE ---
NGT d/c'd per orders; denies n/v. R louis completed @ bedside this AM by Dr. Greenfield; 450mL of sang pleural fluid evacuated; samples sent to lab. Pt. weaned to RA, tolerating. Church removed @ 1200; DTV @ 1800. Pt. assisted x2 OOB to chair s/p
procedure; tolerating position/activity. [employer] to bedside for eval this AM; diet advanced per recommendation, poor appetite. PT/OT to see patient today. @ bedside, updated. Call ira ocasio in reach.
--- NOTE | 2025-09-06 13:56 | W.PN.GI.CBS2 ---
Addendum entered and electronically signed by Nelson Muse DO 09/06/25 14:21:
I saw and examined the patient.
The ITEM PROCESSOR's note was reviewed and I agree with the note.
Comment: No further signs to suggest recurrent bleeding or further coffee ground material in NGT earlier this AM. Still without any evidence to suggest overt GI bleeding despite Hgb fluctuations on serial CBCs. Slight drift in Hgb today but appears
stable. Suspect previous coffee ground material secondary to bilious emesis related to sepsis and known gastroparesis. May proceed with restarting anticoagulation from GI standpoint as long as okay with Neurology given MRI findings. Would continue
to trend serial Hgb and would monitor for any signs of recurrent bleeding while in ICU. Okay to proceed with DAVE as planned by Cardiology from GI standpoint and no plans for an EGD at this time. Rest of care as outlined below.
Discussed with primary team this AM. GI will sign-off, please recontact if any questions or concerns.
Original Note:
Today's Communication / Plan
-
etiology of coffee ground emesis related to gastroparesis with distention from morphine use on admission in setting of sepsis, vs GI bleeding with variable hbg vs other
no further coffee ground and NGT out
s/p speech eval
cont IDDS - 6 diet
hbg still variable trend but current 11.9 no stools or signs of aggressive bleeding
cont PPI BID
NSAID avoidance
cont abx per ID for sepsis/bacteremia
MRI as noted
from GI standpoint ok for heparin gtt to start post thora
cont to trend hbg
update family at bedside spoke with cristobal
Assessment / Plan
-
Pt is a 69yo with hx multiple medical problems including hodgkin's lymphoma 1970's, prior XRT, breast CA with b/l mastectomy prior [place], hypothyroidism with prior thyroidectomy, splenectomy, HTN, secondary to XRT with mech AVR, MV stenosis, CVA,
CHF, pulm HTN, prior obscure GI bleed, CKD, gastroparesis with admission with left hip pain with difficulty walking with concern for recent gluteal tear. She is also noted with sepsis with rise in creat , mild LFT elevation, acidosis,
hypotension, fever with elevated lactate and concern for streptococcus pyogenes. She is also noted with speech difficulty with neurology evaluation. Asked to see as she is noted with onset of nausea/vomiting with coffee ground emesis. NGT was
placed with noted dark emesis. In review with patient and family hx GI bleeding in past with work up over last few years. She also admits to hx gastroparesis but minimal symptoms. She did take some morphine on admission and she was concerned
this may have triggered vomiting episodes. She admits to sore throat and weakness but denies dysphagia, GERD, abdominal pain, diarrhea, constipation or rectal bleeding. Pt was on Warfarin prior to admission but denies NSAID use. hbg 12.3 then drop
to 7.[address] on admission with fluid filled stomach gastric outlet of gastroparesis, cannot exclude retroperitoneal/maria isabel hepatitis adenopathy, small to moderate effusion.
Prior GI work up:
05/10/25- colonoscopy Dr. steinberg - Tortuous colon - Changed to an EGD scope to get through safely.- Ileal diverticulum.
- The examination was otherwise normal on direct and retroflexion views.
- No blood found throughout the colon or terminal ileum - No specimens collected.
05/09/[address] Ulloa - Normal esophagus. - Small hiatal hernia.
- Gastritis no old or fresh blood seen - Duodenum normal. Unable to pass through jejunum using colonoscope - No specimens collected.
11/2023- capsule- [place] retained in stomach , consider endoscopic deployment
12/2023- repeat EGD with capsule at [facility]- fresh blood in duodenum and proximal jejunum likely from scope trauma with capsule placement no visible angiectasias, ulcers or masses, more distally appears normal
-coffee ground emesis
-anemia
-hx gastroparesis
-CT on admission with fluid filled stomach gastric outlet of gastropareisis, cannot exclude retroperitoneal/maria isabel hepatitis adenopathy
-fall prior to admission with gluteal tear
-mech AVR with chronic warfarin use
-sepsis with hypotension/fever/elevated lactate -step pyogenes bacteremia
-acidosis
-mild thrombocytopenia
-s/p thora
-hx occult GI bleed
-speech difficulty with hx CVA(CT head mass vs infarct for MR brain) imaging with acute/subacutte CVA
other med problems:
hodgkin's lymphoma 1970's, prior XRT, breast CA with b/l mastectomy prior [place], hypothyroidism with prior thyroidectomy, splenectomy, HTN, secondary to XRT with mech AVR, MV stenosis, CVA, CHF, pulm HTN, CKD
PLAN:
etiology of coffee ground emesis related to gastroparesis with distention from morphine use on admission in setting of sepsis, vs GI bleeding with variable hbg vs other
no further coffee ground and NGT out
s/p speech eval
cont IDDS - 6 diet
hbg still variable trend but current 11.9 no stools or signs of aggressive bleeding
cont PPI BID
NSAID avoidance
cont abx per ID for sepsis/bacteremia
MRI as noted
from GI standpoint ok for heparin gtt to start post thora
cont to trend hbg
update family at bedside spoke with cristobal
hbg trend 12/3- 7.9 (one unit given)-13.3- 8.7.
Subjective
Subjective
Date of Service: September 06, 2025
on IDDS6 diet
No stools no flatus
feeling better with NGT out
Objective
Data Reviewed
Laboratory Data:
Laboratory Results
09/06/25 04:08
09/06/25 04:08
Laboratory Results
PT 26.1 Sec (11.4-14.6) H 09/06/25 04:08
INR 2.39 09/06/25 04:08
APTT 56.1 Sec (23.4-35.0) H 09/05/25 05:25
Phosphorus 2.9 mg/dl (2.5-4.5) 09/05/25 06:07
Magnesium 1.7 mg/dl (1.6-2.3) 09/05/25 06:07
Total Bilirubin 0.5 mg/dl (0.2-1.3) 09/06/25 04:08
AST 45 U/L (14-36) H 09/06/25 04:08
ALT 18 U/L (0-35) 09/06/25 04:08
Alkaline Phosphatase 111 U/L (38-126) 09/06/25 04:08
Vital Signs and I&O:
Vital Signs
Temp Pulse Resp BP Pulse Ox
97.3 F 93 18 165/68 95
09/06/25 12:16 09/06/25 13:00 09/06/25 13:00 09/06/25 13:00 09/06/25 12:00
I&O
09/05/25 09/06/25 09/07/25
06:59 06:59 06:59
Intake Total 2819.5 / 2922.0 2162.5 / 2222.5 560 / 560
Output Total 395 / 415 765 / 815 275 / 275
Balance 2424.5 / 2507.0 1397.5 / 1407.5 285 / 285
Physical Exam
Physical Exam
HEENT: Anicteric and Moist mucous membranes
Cardiology: Normal Sinus Rhythm
Pulmonary: Clear and Other (course cough )
GI: Soft, Distended (mild ), Non Distended and Other (NGT out )
Extremities: No Edema
Neuro: Other (slight slurred speech left facial drop conversant )
[2025-09-06] MEDS: LASIX 20 MG IV (14:05)
--- NOTE | 2025-09-06 15:19 | CM ---
CM reviewed pt with therapy
Acute recommendations
Bedside meeting with pt and spouse
Acute rehab discussed- referral to [facility] per pt request
CM discussed insurance with spouse who noted he believes Medicare A is primary vs UHC
Discussion with admissions who confirmed UHC is primary, Med A only secondary
PMR eval requested via [facility] resident
Discharge Disposition- acute rehab pending PMR/prior auth
[2025-09-06] MEDS: HEPARIN 25000 UNITS/250 ML IV (15:40)
[2025-09-06 16:07] LABS: APTT 47.8 Sec (23.4-35.0); Blood Urea Nitrogen 57 mg/dl (7-17); Calcium 9.3 mg/dl (8.4-10.2); Carbon Dioxide 18 mmol/L (22-30); Chloride 109 mmol/L (98-107); Estimated Creatinine Clearance 21 ml/min; Glucose 101 mg/dl (70-99); Potassium 5.0 mmol/L (3.5-5.1); Sodium 134 mmol/L (135-145); eGFR 34.27
--- NOTE | 2025-09-06 17:29 | PTCARENOTE ---
Pt. assisted to BSC then back to bed w PT/OT; tolerated approx 2H OOB. SpO2 88% on RA, 2LNC reapplied and SpO2 recovered back to 93%. Heparin gtt initiated @ 1540- see MAR/flow sheet. Plan to also start Coumadin tonight; confirmed w . Per
cards plan for DAVE in AM; pt. to be NPO after midnight. Pt. updated on plan of care.
[2025-09-06] MEDS: COUMADIN 2.5 MG PO (18:01)
[2025-09-06] MEDS: ATIVAN 0.5 MG PO (21:03)
[2025-09-06 21:30] LABS: APTT 74.2 Sec (23.4-35.0)
[2025-09-07] VITALS (22 sets, daily range): BP systolic 94–180; BP diastolic 49–87; PULSE 102; O2SAT 95; BMI 17.5
--- NOTE | 2025-09-07 02:57 | DOWNTIME ---
There was a [employer] Client Allergy Nurse Downtime on 09/07/2025 from 0100 to 09/07/2025 at 0255. Downtime documentation of patient's care, including medication administrations, has been reconciled in the electronic record per guidelines. Refer to the
patient's paper chart under the miscellaneous tab to see printed paper medication records and downtime forms.
[2025-09-07 03:47] LABS: APTT 84.0 Sec (23.4-35.0); INR 2.93; PT 30.5 Sec (11.4-14.6)
--- NOTE | 2025-09-07 03:48 | PTCARENOTE ---
AM labs sent. pt remains on heparin gtt. SR/ST on monitor, on 2L NC. purewick replaced, CHG bath complete. denies pain. call roth in reach.
[2025-09-07 03:57] LABS: Hematocrit 35.3 % (37.0-47.0); Hemoglobin 12.0 g/dL (12.0-16.0); Mean Corp Hgb Conc. 34.0 g/dL (33.0-37.0); Mean Corpuscular Volume 83.8 fL (81.0-99.0); Platelet Count 147 10^3/uL (130-400); Red Cell Dist. Width 19.2 % (11.5-14.5)
[2025-09-07 04:36] LABS: ALT (SGPT) 16 U/L (0-35); AST (SGOT) 34 U/L (14-36); Albumin 2.6 g/dl (3.5-5.0); Alkaline Phosphatase 103 U/L (38-126); Blood Urea Nitrogen 56 mg/dl (7-17); Calcium 8.7 mg/dl (8.4-10.2); Carbon Dioxide 18 mmol/L (22-30); Chloride 110 mmol/L (98-107); Estimated Creatinine Clearance 21 ml/min; Glucose 84 mg/dl (70-99); Potassium 4.6 mmol/L (3.5-5.1); Sodium 139 mmol/L (135-145); Total Protein 6.6 g/dl (6.3-8.2); eGFR 37.03
[2025-09-07] MEDS: SYNTHROID 88 MCG PO (05:37)
--- NOTE | 2025-09-07 05:59 | PTCARENOTE ---
heparin gtt d/c by mercury cracking tester this AM. gtt capped.
--- NOTE | 2025-09-07 07:33 | W.PN.HOSP.TC ---
Addendum entered and electronically signed by Richardson Hawthorne MD 09/07/25 22:08:
Attending Addendum-
I saw and evaluated the patient. I reviewed the resident�s note and agree with findings and plan as documented in the resident�s note. Sub: seen post DAVE. patient with slurred speech and decreased responsivemens. likely post anesthesia effect.
afebrile. No complaints. Seen with present. Full 12 point ROS reviewed and negative except as documented Exam: Vitals reviewed in chart GEN-NAD Heart RRR no MRG, crisp click RUSB Lungs decreased BS RLL, no W/R/R Abd soft NT ND pos BS LE no
edema, left hip TTP lynn in place Neuro following commands, sluggish
Plan:
# Septic Shock from GAS with bacteremia/hypotension requiring pressors
- POA
- 09/04-blood cx pos x 2 GAS, rapid strep and troat cx - neg
- blood cx 09/05- NGTD, repeat blood cx 09/06-NGTD
- cont Rocephin
- DAVE 09/07- neg for vege
- weaned off Levophed
- ECHO 09/05-Compared to a prior transthoracic echocardiogram study from 07/25/2025 no significant changes are seen.
-Left ventricular ejection fraction is 55-60% by visual estimate.
-Well seated mechanical aortic valve replacement.
- resolving transfer to tele
# Severe PCN- nutrition c/s
# Left Hip Bursitis
- Recently underwent localized injection for gluteus tear / bursitis and got temporary symptom relief.
- pain control / supportive care.
- Ortho input appreciated, s/p repeat steroid injection 09/04
# Upper GIB
- resolved, exacerbated by warfarin
- likely from gastroparesis/retching
- DC NG tube
- monitor H and H-stable, PPI gtt-> IV BID->PO
- GI input appreciated
- received 1 unit prbc this admission
# Right pleural Effusion
- s/p thora 09/06 660mls pinkish fluid
- exudate
- cytology-P
- fluid cx results-NGTD
# Mechanical Aortic Valve
- continue Coumadin
- therapeutic INR 2-3 target @ 2.5
- DC heparin gtt
- repeat INR daily
# [place] on CKD 3b
- improving
- cont lasix
- baseline 1.3
- CTM/avoid NT agents
# Thrombocytopenia- resolved
# CAD
- cardiac cath 10/28/2024-CAD with 60 to 70% ostial to proximal LM stenosis, 100% FIRST OFFICER AND FLIGHT INSTRUCTOR proximal RCA with [id number] collaterals
- Continue metoprolol with holding parameters to avoid hypotension.
# NAGMA-improving repeat BMP in am
# Hypocalcemia- resolved
# Dysphagia- cont IDDSI 6 diet
# TME
- from sepsis, improving
- neuro on board
- MRI- small foci of acute to subacute infarct involving both occipital lobes
- DAVE 09/07-no vegetations
- B/L CD - no significant stenosis
# Chronic HFpEF
- restart Lasix
- Follow I/Os, daily weights
- echo 08/13- 55-60%
# Hypothyroidism- levothyroxine
# Stage III Breast Cancer/Hodgkins Lymphoma
# H/O CVA with residual left hemiparesis
DVT prophylaxis:Coumadin
Code Status: DNR verified with POA
Dispo-physiatry eval for possible acute rehab admit CM aware
Time spent coordinating care, review of plan of care with resident, personally reviewed records in EMR, med rec, consults, notes, labs, radiology, d/w nursing,cards, � 53 mins
Original Note:
Today's Communication/Plan
-
Pleural fluid Cx, pathology pending
PO Lasix from 20 AM
Stop Heparin ggt
Continue Coumadin 2.5 mg
Resume Metoprolol 25mg
Assessment / Plan
Assessment / Plan
09/04/25 Rapid Response Deteriorating Mental Status 2/2 Developing Severe Sepsis (Leukocytosis, Fever, end organ damage CHINA)
Acute Metabolic Encephalopathy
Septic shock from GAS with bacteremia
-After study, Sepsis due to Bacteremia with organ dysfunction of hypotension was present on admission
-Human Capital Consultant consult, input appreciated
-Transferring from ICU to telemetry
-Septic shock Levophed on hold improving BP. Goal MAP>65
-Blood Cx's drawn in ED, Strep Pyogenes (+)
-ID consult, input appreciated
-Started on Renally dose Cefazolin per discussion with ID- Replace Cefazolin with Ceftriaxone #D3
-Pt's + for Strep throat. Repeat blood C's x2- no growth in 24hrs- pending
-Throat Cx Group B strep - negative
-Rapid strep for GAS-negative
-Pt has low CO2 18- NAGMA 11
-IVF with LR support - DC
-Pleural fluid Cx- pending
-PMR consult, input appreciated
-Follow temp- tylenol prn
-Follow vitals
Nausea and Vomiting
Coffee Ground Emesis vs Bilious Emesis
-Warfarin was on hold at the admission because of possible GI Bleeding exacerbated by Warfarin
-Suspect previous coffee ground material secondary to bilious emesis related to sepsis and known gastroparesis
-Hx of GIB with recent scopes in April
-09/04 NGT placed to suction w/ relief symptoms- Patient had NG tube which was pulled 09/06/2025 with no significant finding of coffee-ground emesis
-CT abd/pelvis w/o contrast limited study noted, possible gastric outlet obstruction vs gastroparesis
-Hb 8.7, received 1PRBC. transfuse if Hgb<8
-Consult GI, input appreciated
-Switch to oral PPI from Protonix BID
-Avoid NSAID
Pleural effusion
- On POCUS- right sided moderate pleural effusion
- Suspect for sepsis site with Bc strep. pyogenes- empyema?
- thoracentesis was performed 09/06. a total of 660 mL of serosanguineous fluid was collected
- Acid Fast Bacilli and Fluid Cx , cytology- pending
- Per Light's Criteria PF/Serum Protein= 0.58= exudative, PF/Serum LDH=0.517=does not meet criteria
- Meets 1 Lights criteria - exudative, gross look of serosanginous fluid 2/2 ? infection, ? malignancy, ? pseudoexudative 2/2 home lasix - await pathology results
- Pro BNP >50797 , transudative 2/2 HF?
- Trace Left Pleural effusion developing - discontinue IV fluid, 20mg Lasix PO BID
H/o Breast Cancer with brain lesions, metastasis vs embolic stroke
CT scan of head
At least 3 cm focus of decreased attenuation centered about the right sylvian fissure which could represent an intracranial mass with edema such as metastatic disease.
Subacute to chronic infarct cannot be differentiated on this CT without intravenous contrast.
Recommend Brain MRI without and with contrast for more complete evaluation.
Brain MRI w/wo contrast
There is no MR evidence for intracranial metastatic disease
There are small foci of acute to subacute infarct involving both occipital lobes
Focal region of abnormal restricted diffusion involving the choroid plexus within the atria of the right lateral ventricle.
Given the findings in the occipital lobe, this is suspicious for a focus of acute to subacute infarct involving the choroid plexus, although can also be seen with choroid plexus xanthogranuloma
Focal area of encephalomalacia involving the inferior right frontal and superior right temporal lobe, in the region of the insula. There is a region of abnormal diffusion extending superiorly and anteriorly to the region of encephalomalacia, and
signal abnormality extends appears increased compared to previous MRI in June 2021.
Findings would suggest focal area of acute to subacute infarct in the right frontal lobe, superior to the region of encephalomalaci
Carotid US- Minimal calcified carotid bulb plaque on each side, measurements suggestive of less than 50% stenosis on each side
-last Tx was in October
-follows with Dr Amaral, recently received outpt IV iron infusions for anemia
-Consulted Neurology, input appreciated
-posterior circulation areas of ischemia which are suggestive of embolic stroke in bilateral occipital lobes
-Provide with AC, risk of hemorrhagic conversion of small posterior lesions unlikely. Avoid bolus IV heparin
-DAVE today 09/07 - No evidence of cardioembolic source of stroke, no evidence for endocarditis
Dysarthria
Dysphagia
-likely 2/2 acute/subacute infarcts in bl occipital lobes, choroid plexus, and extension of previous right frontal lobe infarct
-Evaluated by speech therapy. Recommending IDDSI 6 soft and bite-size diet
-Start PO feeding
Acute on CKD stage III
-likely pre-renal poor oral intake nausea vomiting
-IVF support- DC
-avoid nephrotoxins, prn Toradol discontinued
-monitor renal function
Mechanical Aortic Valve Replacement on Coumadin
HFpEF (recent ECHO EF 55-60%)
ASCVD
Prior WI, CVA with L sided weakness.
-AC was held in view of acute drop in Hb and concern for brain emboli with bacteremia
-INR therapeutic 2-3, Continue 2.5mg Coumadin per cards - INR 2.93
-Continue heparin ggt per certified physician's assistant, monitor APTT - Discontinued IV heparin on 09/07/2025
-Repeat LAsix 20mg IV x 1 on 09/07 then switch to 20mg Lasix PO QD
-Resume Metoprolol 25mg PO BID
TTE
1. Compared to a prior transthoracic echocardiogram study from 07/25/2025 no significant changes are seen.
2. Left ventricle is small in size. Mild concentric left ventricular hypertrophy. Preserved left ventricular systolic function. Left ventricular ejection fraction is 55-60% by visual estimate.
3. Well seated mechanical aortic valve replacement. Peak/mean gradients across the aortic valve are 7/4 mmHg respectively. No aortic regurgitation.
4. Moderate tricuspid regurgitation. Estimated pulmonary artery pressure of 39 mmHg assuming a right atrial pressure of 3 mmHg.
5. Thickened calcified mitral valve leaflets with adequate excursion. Dense mitral annular calcification. There is at least mild to moderate mitral regurgitation which may have been underestimated due to mitral annular calcification.
Acute on Chronic Left Hip Pain
-left hip greater trochanteric bursitis and gluteal tendinitis, follows Dr Caban
-Hip X-ray appreciated no acute fracture or dislocation
-Orthopedic eval appreciated steroid injection given 09/04/25- ice and tylenol prn
-PT/OT eval
-PMR consult, input appreciated
Electrolyte abnormality
-hypocalcemia- repleted
Pulmonary HTN
- RHC 10/2024, mPA 41, PCWP 22 with CI 2.5, PVR 5.8.
- Group II with h/o AVR, elevated PCWP. Also elevated PVR suggestive of concomitant pre-capillary Pulmonary HTN
Malnutrition
-Likely Severe Protien Calorie Malnutrition vs cachexia
-Consult Dietary RN
-BMI 18
DVT ppx SCD
DNR as per POA Uziel
Dispo: Eventually hope to transfer pt to [facility] after discharge
Anticipated Discharge: > 48 hours
Subjective/Interval History
-
Date of Service: September 07, 2025
She has difficulty with speaking. She requested a pen and paper with her body language. She complains about mucous being stuck in her throat.
Objective Data
-
Labs:
Laboratory Results
09/06/25 09/07/25 09/07/25
21:10 03:19 03:30
WBC 8.4
Hgb 12.0
Hct 35.3 L
Plt Count 147
PT 30.5 H
INR 2.93
APTT 74.2 H 84.0 H Pending
Sodium 139
Potassium 4.6
Chloride 110 H
Carbon Dioxide 18 L
BUN 56 H
Creatinine 1.5 H
Glucose 84
Calcium 8.7
Total Bilirubin 0.7
AST 34
ALT 16
Alkaline Phosphatase 103
Vital Signs:
Vital Signs
Temp Pulse Resp BP Pulse Ox
98.7 F 99 25 138/65 96
09/07/25 04:45 09/07/25 06:00 09/07/25 06:00 09/07/25 06:00 09/07/25 06:00
I&O
09/06/25 09/07/25 09/08/25
06:59 06:59 06:59
Intake Total 2162.5 / 2222.5 630 / 630
Output Total 765 / 815 2525 / 2525
Balance 1397.5 / 1407.5 -1895 / -1895
Review of Systems
-
History Source: Patient
Constitutional: Reports No Symptoms and Weakness (left leg)
EENT: Reports No Symptoms Reported
Respiratory: Reports No Symptoms
Cardiac: Reports No Symptoms
Abdomen/GI: Reports No Symptoms
Breast: Reports No Symptoms
Genitourinary: Reports No Symptoms
Musculoskeletal: Reports Joint Swelling (left hip)
Skin: Reports No Symptoms
Neuro: Reports No Symptoms
Endocrine: Reports No Symptoms
Hematologic / Lymphatic: Reports Swollen Glands (right and left cervical LAP)
Allergy / Immunology: Reports No Symptoms
Physical Exam
-
General: Well Developed, Pain, Slurred Speech, Appears Chronically Ill and Cachectic
HEENT: Normocephalic, Atraumatic and Pharyngeal Erythema (goss patch)
Respiratory: Clear to Auscultation
Cardiac: Regular Rhythm and S1/S2
Breast: Deferred by me
GI: Soft, Nontender, Nondistended and Normal Bowel Sounds
Rectal: Deferred by Provider
Genito-urinary: Lynn
Musculoskeletal: No Clubbing, No Cyanosis and No Edema
Skin: Warm and Dry
Neuro: AO x 3
Psych: Calm
[2025-09-07] MEDS: LASIX 20 MG IV (07:51)
[2025-09-07] MEDS: TOPROL XL 25 MG PO ×2 (07:52→19:57)
[2025-09-07] MEDS: PROTONIX 40 MG PO ×2 (07:52→19:57)
--- NOTE | 2025-09-07 09:00 | PTCARENOTE ---
Update Cath team this am. Update bedside with senior staff psychologist team. Patient npo, to manufacturing lab technician for molly will follow up plan of cares. Continue with follow up assessment trends, follow up vital signs ongoing and as documented. Emotional support and
supportive cares ongoing. Will follow up plan of downgreade, plan of cares post MOLLY.
--- NOTE | 2025-09-07 09:48 | PTCARENOTE ---
Update with stripper and opaquer apprentice team. Update with cardiology in ICU. Follow up medications with pharmacy. Follow up plan for downgrade, follow plan of cares. Patient in senior cytogenetics laboratory director for DAVE will follow up again with team.
--- NOTE | 2025-09-07 10:57 | PN.CDI ---
CDI
- -
CDI:
Physician Documentation Request
Admit Date: 09/04/25 05:43
Dear Doctor,
Please review the following and provide your response in the progress notes.
Clinical Indicators:
Pt admitted with Acute on Chronic Left Hip Pain left hip greater trochanteric bursitis and gluteal tendinitis.
09/05 Registered Dietitian Note: 'Initial assessment due to consult for malnutrition and consult for stroke/TIA....
Current BW: (09/05) 85 lbs 15.684 oz BMI: 18.0 (underweight). Weight history (05/02/25) 83 lbs.
Patient meets AND and ASPEN criteria for severe protein calorie malnutrition of chronic disease due to severe fat and severe muscle loss around her orbitals and clavicles.'
Based on the above information and your assessment, which of the following most accurately represents the patient's nutritional status?
Severe Protien Calorie Malnutrition
Other (please specify)
[place] Criteria ([facility] Hospitalist 2017)
2 or more criteria must be present for either
non severe or severe malnutrition
Note that the criteria differs related to the
presence of an acute or chronic illness
Chronic Illness
Energy Intake Non Severe: <75% for >1 month
Severe: <75% for >1 month
Weight Loss Non Severe: 5% over 1 month
7.5% over 3 months
10% over 6 months
20% over 1 year
Severe: >5% over 1 month
>7.5% over 3 months
>10% over 6 months
>20% over 1 year
Body Fat Non Severe: Mild Loss
Severe: Severe Loss
Muscle Mass Non Severe: Mild Loss
Severe: Severe Loss
Fluid Accumulation Non Severe: Mild Accumulation
Severe: Moderate to severe
accumulation
Reduced Dobby Loom Chain Pegger Strength Non Severe: N/A
Severe: Measurably reduced
Use of terms such as suspected, likely, concern for, or probable (associated with a specific diagnosis that is being evaluated, monitored, or treated as if it exists) are acceptable and can be coded in the inpatient setting, when documented at the
time of discharge.
Thank you,
Maureen Rangel RN, BSN
CDI Specialist
[place] [facility]
Please use your independent medical judgment in providing your response.
--- NOTE | 2025-09-07 10:58 | PTCARENOTE ---
Patient return from geophysical laboratory supervisor. VS trends ongoing. Update with supply chain procurement manager team. Follow up report with critical care team and follow up plan of cares.
--- NOTE | 2025-09-07 11:09 | PN.CDI ---
CDI
- -
CDI:
Physician Documentation Request
Admit Date: 09/04/25 05:43
Dear Doctor,
Please review the following and provide your response in the progress notes.
Clinical Indicators:
09/04 Pt admitted with Acute on Chronic Left Hip Pain left hip greater trochanteric bursitis and gluteal tendinitis
09/04 H&P: 'Hypotension BP 95/38(55), 83/40(53), 82/35(50), 159/63
- BP low in the ED - though patient perfectly awake, alert and mentating appropriately.
- Suspect this is due to morphine administered for pain.
- IVF bolus for now.
09/04 PN: ' ...originally presented for evaluation acute on chronic Left Hip pain evaluated and treated by orthopedic with steroid injection. Hospital course complicated with blood cultures pos for Strep pyogenes (drawn in ED). Sepsis not present
on presentation. Initial White count elevation noted attributed to recent steroid injection. Started on Cefazolin renally dosed (Patient had also developed [place] on CKD III d/t poor oral intake and nausea/vomiting).
09/05 ID: 'Per , patient was having shaking chills, unable to get warm. He therefore brought her to the ER. White count was 18.9. Initially she was afebrile. '
09/06 ID: '# Group A streptococcus bacteremia
# Suspect PNA source of Group A strep'
Please clarify the following:
After study, Sepsis due to Bacteremia/Pneumonia with organ dyfunction of hypotension was present on admission
Sepsis was not present on admission, evolved after admission
Other
Use of terms such as suspected, likely, concern for, or probable (associated with a specific diagnosis that is being evaluated, monitored, or treated as if it exists) are acceptable and can be coded in the inpatient setting, when documented at the
time of discharge.
Thank you,
Maureen Rangel RN, BSN
CDI Specialist
[place] [facility]
Please use your independent medical judgment in providing your response.
--- NOTE | 2025-09-07 12:10 | W.PN.INTV ---
Today's Communication / Plan
Recommendations
- DC IV Protonix, transition to oral
- Resume metoprolol at reduced dose of 25 mg p.o. twice daily
- Additional Lasix 20 mg IV x 1 today, resume Lasix 20 mg p.o. in a.m.
- Follow-up pleural fluid cytology and cultures
- DC IV heparin
- Patient can be transferred out of ICU.
- Pulmonary team will follow briefly
Assessment
-
Patient is a 69-year-old female who was admitted to the hospital on 09/04 with chief complaint of left hip pain. Patient had a hip x-ray performed on admission which was unrevealing without any evidence of fracture. Patient has a complex medical
history with prior history of Hodgkin's lymphoma treated with radiation, breast cancer, aortic stenosis s/p mechanical valve replacement on chronic Coumadin therapy as well as multiple episodes of GI bleed with unrevealing EGD and colonoscopy with
concern for small bowel AVMs. Patient has had blood transfusions in the past for anemia. Reportedly patient developed left pain on the hip area, couple of days prior to admission which has been steadily worsening. Patient was evaluated by
orthopedic surgery as outpatient and had a localized steroid injection about 10 days ago for suspected left hip greater trochanteric bursitis and gluteal tendinitis. Patient had another injection of Kenalog 40 mg along with lidocaine on 09/04.
Patient reports improved pain since. In view of recurrence of pain she presented to the emergency room.
Hospital course was complicated by increased lethargy, disorientation and altered mental status which prompted a CT head which was suggestive of a mass with edema suspicious for metastasis versus old stroke. Patient also noted to have elevated
lactate and subsequently positive blood cultures with Streptococcus pyogenes. In view of septic shock and altered mental status, patient had a rapid response event called and was transferred to ICU for further management. Platemaker consultation
was requested for further input.
#1. Septic shock with lactic acidosis
- Resolved, weaned off pressors now. Resume metoprolol at reduced dose of 25 mg twice daily
- Blood cultures positive for Strep Pyogenes. Suspect related to RLL Pneumonia
- Recent diagnosis of greater trochanter bursitis/gluteal tendinitis s/p steroid injection. Also history of aortic valve replacement, @-D Echo negative for vegetations. DAVE negative for obvious vegetation
- Lactate elevated at 3.5, down trending.
- Pleural fluid cultures negative so far
#2. Acute blood loss anemia, recurrent
- Coffee-ground emesis noted after admission, NG tube in place, to low intermittent suction.
- Hb 12.3 > 7.9 > 8.7 > 13.2
- EGC and Colonoscopy in the past unrevealing for bleeding source. ?Small bowel AVMs.
- Hb stable. d/c NG tube, switched to PPI BID, PO
- Start PO feeding
#3. Right sided pleural effusion
- 09/06, POCUS suggestive of moderate effusion
- Bedside Ultrasound performed with 660 ml of sero-sanguinous fluid removed, LDH ratio 0.51, Protein ratio 0.58. Considering patient on diuretics at home, pseudo-exudate likley.
- Trace left sided effusion also developing. Off IVF, repeat Lasix 20 mg IV x 1, resume p.o. in a.m.
#4. [place] with underlying CKD with mild hyperkalemia
- Cr peaked at 2.1, most recent 1.5
- Developing mild congestion of CXR with trace left sided effusion
- D/c IVF, lasix 20 mg IV x 1 dose repeat, resume PO 20 mg daily in AM.
#5. Acute metabolic encephalopathy with Brain lesions, metastasis vs old CVA
- MRI suggestive of CVA. Septic emboli also in differential diagnoses
- Septic shock also contributing to encephalopathy
- Garbled speech noted, neurology service on case, clinically improving.
- DAVE negative for vegetation
#6. s/p AVR, mechanical valve
- Chronically on coumadin
- AC was held in view of acute drop in Hb and concern for brain emboli with bacteremia.
- Coumadin resumed, INR therapeutic. Discontinue IV heparin infusion
#7. Pulmonary HTN
- RHC 10/2024, mPA 41, PCWP 22 with CI 2.5, PVR 5.8.
- Group II with h/o AVR, elevated PCWP. Also elevated PVR suggestive of concomitant pre-capillary Pulmonary HTN
#8. HFpEF, LVEF 55-60%
- Bilateral pleural effusions noted, mild developing chest x-ray congestion, BNP significantly elevated
- Repeat Lasix 20 mg IV x 1 on 09/07, resume Lasix 20 mg p.o. daily in the a.m., titrate as needed
Other medical diagnoses:
- H/o Breast cancer and Hodgkin's lymphoma
- Hip pain, suspect tendonitis/bursitis
Patient has been off pressors, hemodynamically stable, respiratory status stable on only 2 L supplemental oxygen.
Patient stable for transfer out of ICU.
Critical Care time 48 mins -- The patient is admitted for acute critical illness for the treatment of vital organ failure and/or prevention of further life-threatening conditions. Total care includes time spent in review of history, physical exam,
medications, hemodynamic/ventilator parameters, laboratory data, imaging and discussion with house staff, pharmacy, respiratory therapy, brazer helper induction, and nursing.
Data:
CXR 08/2025: No acute disease of the chest.
Feeding tube placement as described above.
CT A/P 08/2025: Markedly limited CT of the abdomen and pelvis as a result of numerous factors, as detailed above, without findings to suggest intestinal obstruction or free air.
Air and fluid filled stomach, cannot exclude some gastric outlet obstruction or gastroparesis.
Cannot exclude some retroperitoneal/maria isabel hepatis lymphadenopathy, limited.
Small to moderate right pleural effusion and patchy bibasilar opacities which may be inflammatory/infectious.
CT Head 08/2025: At least 3 cm focus of decreased attenuation centered about the right sylvian fissure which could represent an intracranial mass with edema such as metastatic disease. Subacute to chronic infarct cannot be differentiated on this CT
without intravenous contrast. Recommend Brain MRI without and with contrast for more complete evaluation.
ECHO 07/2025: 1. Small left ventricle with normal wall thickness and preserved systolic function with septal contraction abnormality, EF 55-60%.
2. Mitral annular calcification, mitral leaflet thickening, at least moderate mitral regurgitation and mitral stenosis, peak/mean gradient 21/5 mmHg. Dilated left atrium.
3. Mechanical aortic valve replacement, peak/mean gradient 5/3 mmHg with trace aortic regurgitation.
4. Normal right heart with mild-moderate tricuspid regurgitation, pulmonary artery systolic pressure is 55 mmHg.
5. In October 2024 peak and mean aortic valve gradients were 17 and 10 mmHg, mitral regurgitation was mild to moderate with a mean gradient of 8 mmHg, and the pulmonary artery systolic pressure was 40-45 mmHg.
RHC & LHC 10/2024: RHC 10/2024, mPA 41, PCWP 22 with CI 2.5, PVR 5.8.
60-70% left main stenosis, inability to advance IVUS. NEUROPHYSIOLOGIST RCA wth L>R collaterals.
Subjective Dataa
Subjective Data
Date of Service:
Date of Service: September 07, 2025
Subjective:
Comfortably lying in bed in no acute distress
Review of Systems
Genitourinary: Other (All 14 systems reviewed and negative except as stated above in the history of present illness.)
Objective Data
Data Reviewed
Vital Signs / I&O / Oxygen:
Vital Signs
Temp Pulse Resp BP Pulse Ox
98.2 F 88 24 122/53 99
09/07/25 11:15 09/07/25 11:00 09/07/25 11:00 09/07/25 11:00 09/07/25 11:00
Intake and Output
09/06/25 09/07/25 09/08/25
06:59 06:59 06:59
Intake Total 2162.5 / 2222.5 630 / 630 30 / 30
Output Total 765 / 815 2525 / 2975 1250 / 1250
Balance 1397.5 / 1407.5 -1895 / -2345 -1220 / -1220
SaO2 99
Nasal Cannula flow liters per 3
minute
Physical Exam
General: Comfortable
HEENT: Normocephalic
Cardiovascular: S1-S2
Respiratory: Rhonchi (None)
GI: Soft and Non Distended
Neurology: Awake and Alert
Skin: Warm
Labs/Micro/Reports
Lab Data
09/07/25 03:19
09/07/25 03:19
Laboratory Results
09/06/25 09/06/25 09/07/25
15:38 21:10 03:19
PT 30.5 H
INR 2.93
APTT 47.8 H 74.2 H 84.0 H
09/07/25
03:30
PT
INR
APTT Cancelled
Microbiology
09/06/25 11:09 Pleural Fluid Body Fluid Culture - Preliminary
No Growth After 18-24 Hours
09/06/25 11:09 Pleural Fluid Gram Stain - Final
09/05/25 13:59 Throat/Pharynx Streptococcus Screen (VANDANA) - Final
No Beta Hemolytic Streptococci Isolated
09/05/25 13:59 Throat/Pharynx Streptococcus Rapid Screen - Final
Rapid Strep Screen (Group A) Negative
09/05/25 13:59 Throat/Pharynx Throat Culture - Final
Usual Respiratory Tawnya
09/06/25 04:18 Blood/Venous Blood Culture - Preliminary
No Growth in 24 hours- Final report to follow
09/05/25 14:28 Blood/Venous Blood Culture - Preliminary
No Growth in 24 hours- Final report to follow
09/04/25 02:51 Urine Urine Culture - Final
NO GROWTH
09/04/25 02:50 Blood/Venous Blood Culture - Preliminary
Streptococcus pyogenes
09/04/25 02:50 Blood/Venous Gram Stain - Final
09/04/25 02:50 Blood/Venous Blood Culture - Preliminary
Streptococcus pyogenes
09/04/25 02:50 Blood/Venous Gram Stain - Final
--- NOTE | 2025-09-07 12:19 | W.PN.ID1 ---
Date of Service
Date of Service: September 07, 2025
Today's Communication
Continue ceftriaxone
Assessment / Plan
# Group A streptococcus bacteremia
# Suspect PNA source of Group A strep
#s/p Septic shock
# Multiple acute/subacute CVA - suspect embolic
# Fever resolved
# Leukocytosis resolved
# Left hip pain/trochanteric bursitis/gluteus tendinitis s/p left hip injection x 2
# Gastroparesis, recurrent obscure coffee-groung emesis
# Hx Splenectomy
# Stage 3 breast ca (not on tx)
# Mechanical AVR
- with Group A strep pharyngitis
Swab pt's throat negative rapid strep, neg cx
- Repeat blood cx's x 2 pending
- TTE no significant change compared to 07/25/25 TTE, no gross vege
- DAVE result pending
- Right pleural effusion s/p thora 660cc serosanguineous fluid; exudative, cx pending
- Continue with ceftriaxone (d3)
Chief Complaint
-: Clinical Sepsis and Bacteremia
Vital Signs / Physical Exam
Vital Signs
Vital Signs
Temp Pulse Resp BP Pulse Ox
98.2 F 88 24 122/53 99
09/07/25 11:15 09/07/25 11:00 09/07/25 11:00 09/07/25 11:00 09/07/25 11:00
Physical Exam
Constitutional: Cachetic
Head: Other (NGT in place)
Eyes: No Conjunctival Hemorrhage and Sclera Anicteric
Cardiovascular: Regular Rate and S1/S2
Pulmonary: Rales (bases)
Gastrointestinal: Soft, Non Tender and Non Distended
Genito-Urinary: Negative CVA Tenderness
Extremities: Negative Edema or Erythema
Musculoskeletal: Other (Left hip no erythema/warmth, able to flex)
Neurological: Awake
Lines: Other (LUE midline)
Objective Data
Lab Data
Lab Results
09/07/25 03:19
09/07/25 03:19
PT 30.5 Sec (11.4-14.6) H 09/07/25 03:19
INR 2.93 09/07/25 03:19
APTT Cancelled 09/07/25 03:30
Estimated Creat Clear 21 ml/min 09/07/25 03:19
Lactic Acid 1.9 mmol/L (0.7-2.0) 09/05/25 21:46
Total Bilirubin 0.7 mg/dl (0.2-1.3) 09/07/25 03:19
AST 34 U/L (14-36) 09/07/25 03:19
ALT 16 U/L (0-35) 09/07/25 03:19
Alkaline Phosphatase 103 U/L (38-126) 09/07/25 03:19
Most recent labs reviewed.
Micro Results:
09/06/25 11:09 Body Fluid Culture - Preliminary
Pleural Fluid No Growth After 18-24 Hours
Gram Stain - Final
09/05/25 13:59 Streptococcus Screen (VANDANA) - Final
Throat/Pharynx No Beta Hemolytic Streptococci Isolated
Streptococcus Rapid Screen - Final
Rapid Strep Screen (Group A) Negative
09/05/25 13:59 Throat Culture - Final
Throat/Pharynx Usual Respiratory Tawnya
09/06/25 04:18 Blood Culture - Preliminary
Blood/Venous No Growth in 24 hours- Final report to follow
09/05/25 14:28 Blood Culture - Preliminary
Blood/Venous No Growth in 24 hours- Final report to follow
09/06/25 11:09 Acid Fast Bacilli Smear - Pending
Pleural Fluid Acid Fast Bacilli Culture - Pending
09/04/25 02:51 Urine Culture - Final
Urine NO GROWTH
09/04/25 02:50 Blood Culture - Preliminary
Blood/Venous Streptococcus pyogenes
Gram Stain - Final
09/04/25 02:50 Blood Culture - Preliminary
Blood/Venous Streptococcus pyogenes
Gram Stain - Final
09/06/25 CXR: Interval increase in opacification of the right lower lung, most likely atelectasis. Evidence for small to moderate right pleural effusion including lateral loculation. Small left pleural effusion. Parenchymal opacity within the left
lower lung, mainly medially, with differential considerations of atelectasis and/or pneumonia.
11/05/24 Brain MRI: There are small foci of acute to subacute infarct involving both occipital lobes; suspicious for a focus of acute to subacute infarct involving the choroid plexus, although can also be seen with choroid plexus xanthogranuloma.
Findings would suggest focal area of acute to subacute infarct in the right frontal lobe, superior to the region of encephalomalacia.
09/04/25 CXR: The lungs are clear.
09/04/25 CT a/P: Markedly limited CT of the abdomen and pelvis as a result of numerous factors,
09/04/[address]: At least 3 cm focus of decreased attenuation centered about the right sylvian fissure which could represent an intracranial mass with edema such as metastatic disease. Subacute to chronic infarct cannot be differentiated on this CT
without intravenous contrast. Recommend Brain MRI without and with contrast for more complete evaluation.
09/04/25 L HIP XRAY:No acute fracture or dislocation. The hip joint space is maintained. Gluteus medius calcific tendinosis.
08/17/25 outside MRI wo contrast left hip report: ' There is evidence of a tear of the distal gluteus minimus muscle and tendon at the level of the greater trochanter with evidence of peritrochanteric edema and fluid. Incidental inguinal lymph
nodes are noted bilaterally.
[2025-09-07] MEDS: ROCEPHIN 2000 MG IV (12:46)
[2025-09-07] MEDS: FLUSH (NSS) 1 FLUSH IV ×2 (12:46→18:46)
[2025-09-07] MEDS: STERILE WATER FOR INJECTION 20 ML IV (12:46)
--- NOTE | 2025-09-07 12:56 | W.PN.CARDCBS ---
Today's Communication / Plan
-
No evidence of cardioembolic source of stroke on DAVE as clinically questioned
We will sign off, please recall as needed
Impression / Plan
-
PCP: Dr. Haynes
Cardiology: Dr. Aramis Resendez
Oncology: Dr. Amaral
Impression:
Admitted 09/04/2025 with left hip pain
TME
Septic shock requiring pressors
Group A Streptococcus bacteremia
Suspected pneumonia
Right pleural effusion
Status post right thoracentesis for 660 mL of blood tinged fluid
Dysphagia, dysarthria likely secondary to acute/subacute infarcts in bilateral occipital lobes, choroid plexus, and extension of previous right frontal lobe infarct
Left hip pain/trochanteric bursitis/gluteus tendinitis s/p left hip injection x 2 as outpatient
h/o recurrent GIB ( 05/02/25 until 05/05/25, readmitted 05/06/25)
Chronic warfarin OAC managed by [facility] cardiology
h/o CVA
h/o CVA 2005
h/o right MCA stroke with M2 occlusion in setting of subtherapeutic INR while off Coumadin 07/15/21
patient bridged with Lovenox prior to colonoscopy 07/10/21, but no Lovenox bridge post-colonoscopy
Mechanical AVR pediatric size 2006
Mitral regurgitation with mitral stenosis
Tricuspid regurgitation with pulmonary hypertension
h/o Hodgkin's lymphoma treated with radiation to left neck and pelvis 1973
h/o breast CA
2018 treated with B/L mastectomy, patient refused chemotherapy and radiation, but eventually agreeable to Tamoxifen
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
Recurrence of breast cancer 2021 - did not tolerate Ibrance or Ribociclib
Labile HTN
Hypothyroidism
Chronic HFpEF
CAD with 60 to 70% ostial to proximal LM stenosis, 100% PROGRAM DIRECTOR proximal RCA with [id number] collaterals by cardiac cath 10/28/2024
LHC 10/28/2024: Eccentric 60-70% ostial to proximal Left main, difficult to advance IVUS catheter. iFR positive at 0.76. Elevated filling pressures, normal cardiac output/index, occluded right coronary artery with brisk collater, Nonobstructive plaque
of LAD and circumflex, pulmonary artery pressure 62/26, pulmonary capillary wedge pressure is 22, right atrial pressure is 11, cardiac index is 2.5
Echo 08/26/2022: Hyperdynamic LV.� EF 70 to 75%.� Mild to moderate MS peak/mean gradient 20/7 mmHg.� Moderate to severe MR.� Well-seated mechanical AVR with peak/mean gradient 11/6 mmHg without regurgitation.� Moderate to severe TR.� Moderate
pulmonary hypertension with PAP 50 to 55 mmHg.
Echo 02/10/2023: EF 60 to 65%.� Moderate mitral stenosis mean gradient 11 with severe MR.� Well-seated mechanical AVR with peak/mean gradient 15/8 mmHg, mild to moderate TR, mild pulmonary hypertension with PAP 45 to 48 mmHg.
Echo 11/19/2023: EF 70-75%, moderate MS with peak/mean gradients 15/8 mmHg, moderate MR, mechanical prosthetic AVR with peak/mean gradients 16/9 mmHg, trace AR, moderate TR, estimated PAP 30-35 mmHg
Echo 10/25/24: EF 55-60%, moderate mitral stenosis with mean gradient of 8 mmHg, mild to moderate MR, mechanical AVR with mean gradient of 10, no AI, mild to moderate TR with PA pressure 40-45
Echo 09/05/2025: EF 55 to 60%. Mild LVH. Mildly dilated LA and RA. Mild to moderate mitral regurgitation. Well-seated mechanical aortic valve peak/mean gradient 7/4 mmHg. No AI. Moderate TR with PAP 39 mmHg.
MRI brain 09/05/25: There is no MR evidence for intracranial metastatic disease. There are small foci of acute to subacute infarct involving both occipital lobes as described. Focal region of abnormal restricted diffusion involving the choroid
plexus within the atria of the right lateral ventricle. Given the findings in the occipital lobe, this is suspicious for a focus of acute to subacute infarct involving the choroid plexus, although can also be seen with choroid plexus
xanthogranuloma. Focal area of encephalomalacia involving the inferior right frontal and superior right temporal lobe, in the region of the insula. There is a region of abnormal diffusion extending superiorly and anteriorly to the region of
encephalomalacia, and signal abnormality extends appears increased compared to previous MRI in June 2021. Findings would suggest focal area of acute to subacute infarct in the right frontal lobe, superior to the region of encephalomalacia.
-Carotid ultrasound 09/05/25: Minimal calcified carotid bulb plaque on each side, measurements suggestive of less than 50% stenosis on each side.
Plan:
-Admitted 09/04/2025 with left hip pain then developed acute altered mental status and slurred speech and was found to have septic shock requiring pressors which have been weaned.
-Group A Streptococcus bacteremia. Unclear source.
-Patient found to have new acute to subacute strokes involving posterior circulation and in bilateral occipital lobes suggestive of embolic source on MRI.
-Underwent DAVE to evaluate for cardioembolic source of stroke - not evidence of valvular vegetation to suggest infectious endocarditis
-Patient has history of pediatric mechanical aortic valve maintained on Coumadin as outpatient with goal INR 2.5-3.0
Not much to add from a cardiology standpoint, we will sign off, please recall as needed
Outpatient follow-up to be arranged
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
Subjective
Date of Service: September 07, 2025
No acute overnight events. Remains in ICU. No cardiac complaints.
Objective
Labs:
09/07/25 03:19
09/07/25 03:19
Labs
Hgb 12.0 g/dL (12.0-16.0) 09/07/25 03:19
Hct 35.3 % (37.0-47.0) L 09/07/25 03:19
Plt Count 147 10^3/uL (130-400) 09/07/25 03:19
PT 30.5 Sec (11.4-14.6) H 09/07/25 03:19
INR 2.93 09/07/25 03:19
APTT Cancelled 09/07/25 03:30
Sodium 139 mmol/L (135-145) 09/07/25 03:19
Potassium 4.6 mmol/L (3.5-5.1) 09/07/25 03:19
BUN 56 mg/dl (7-17) H 09/07/25 03:19
Creatinine 1.5 mg/dL (0.6-1.0) H 09/07/25 03:19
Glucose 84 mg/dl (70-99) 09/07/25 03:19
Vital Signs and I&O:
Vital Signs
Temp Pulse Resp BP Pulse Ox
98.2 F 88 24 122/53 99
09/07/25 11:15 09/07/25 11:00 09/07/25 11:00 09/07/25 11:00 09/07/25 11:00
Vital Signs
Temp Pulse Resp BP Pulse Ox
98.2 F 88 24 122/53 99
09/07/25 11:15 09/07/25 11:00 09/07/25 11:00 09/07/25 11:00 09/07/25 11:00
Intake & Output
09/05/25 09/06/25 09/07/25 09/08/25
06:59 06:59 06:59 06:59
Intake Total 2819.5 / 2922.0 2162.5 / 2222.5 630 / 630 30
Output Total 395 / 415 765 / 815 2525 / 2975 1250 / 1250
Balance 2424.5 / 2507.0 1397.5 / 1407.5 -1895 / -2345 -1220 / -1220
Physical Exam
Physical Exam
Gen: NAD, AA, frail appearing
HEENT: NC/AT, sclera anicteric
CV: RRR, NL s1/s2
Lungs: CTAB on RA
Abd: S/ND
Ext: No LE edema
Skin: Warm, dry
--- NOTE | 2025-09-07 14:03 | PTCARENOTE ---
update plan of cares. Update with family. Hospitalist team at bedside. Continue follow up cares and plan of transfer. Reviewed with hospitalist team, events, medications and new room assignment. Lunch at this time. Await return call from fourth
floor team.
--- NOTE | 2025-09-07 14:41 | PTCARENOTE ---
Updated report with fourth floor team. PT/OT work with patient while in Icu. Continue to follow up patient care needs. Transfer ambulate with walker to new bed with PT team. Hospitalist updated on transfer.
--- NOTE | 2025-09-07 15:24 | CM ---
Transferred out of ICU to Room 406-2. Received IV/Lasix today. IV/Rocephin. Discharge POC: Acute Rehab. Preference is [facility]. referral previously forwarded. Awaiting physiatry consult completion. Requires Insurance auth.
--- NOTE | 2025-09-07 15:49 | PTCARENOTE ---
Received pt from ICU via bed, accompanied by RECTIFYING ATTENDANT's x2. Pt AAO x3, JOHNSON; weak. VSS. PLaced on telemetry:NSR/sinus tachy. Knee-high SCDs in place. On nc 2 lpm- pulse ox 100%, pt with (+) slight NAJERA; occ loose, BROADCAST CORRESPONDENT cough; occ drools clear mucus.
Abd soft, sl rounded, to be on IDDI 6 diet. Incont urine- Purewick in place per pt request. Oriented to 4[address], currently resting in bed; at bedside. Will continue to monitor.
[2025-09-07] MEDS: COUMADIN 2.5 MG PO (17:34)
[2025-09-07] MEDS: DILAUDID 0.25 MG IV ×2 (18:45→22:45)
[2025-09-07] MEDS: LOPRESSOR 25 MG PO (23:49)
[2025-09-08] VITALS (10 sets, daily range): BP systolic 108–190; BP diastolic 45–74; PULSE 92; O2SAT 97
[2025-09-08 05:27] LABS: Hematocrit 41.0 % (37.0-47.0); Hemoglobin 13.3 g/dL (12.0-16.0); Mean Corp Hgb Conc. 32.4 g/dL (33.0-37.0); Mean Corpuscular Volume 85.8 fL (81.0-99.0); Platelet Count 147 10^3/uL (130-400); Red Cell Dist. Width 19.4 % (11.5-14.5)
[2025-09-08 05:48] LABS: Blood Urea Nitrogen 65 mg/dl (7-17); Calcium 8.9 mg/dl (8.4-10.2); Carbon Dioxide 18 mmol/L (22-30); Chloride 110 mmol/L (98-107); Estimated Creatinine Clearance 19 ml/min; Glucose 100 mg/dl (70-99); Potassium 4.1 mmol/L (3.5-5.1); Sodium 142 mmol/L (135-145); eGFR 34.27
[2025-09-08 05:51] LABS: PT 50.6 Sec (11.4-14.6)
[2025-09-08 05:52] LABS: APTT 53.5 Sec (23.4-35.0)
[2025-09-08 06:11] LABS: INR 5.60
[2025-09-08] MEDS: SYNTHROID 88 MCG PO (06:22)
--- NOTE | 2025-09-08 06:23 | W.PN.UPDATE ---
Update Note
Progress Note Update
INR this morning 5.6. Will hold coumadin. No evidence of any bleeding
--- NOTE | 2025-09-08 07:01 | W.PN.HOSP.TC ---
Addendum entered and electronically signed by Richardson Hawthorne MD 09/08/25 21:48:
Attending Addendum-
I saw and evaluated the patient. I reviewed the resident�s note and agree with findings and plan as documented in the resident�s note. Sub: patient with dysarthria. appears unaffected by this. unable to understand. afebrile. follws commands. was
placed on supplemental o2 due to SOB/hypoxia. no signs of bleeding Full 12 point ROS reviewed and negative except as documented Exam: Vitals reviewed in chart GEN-NAD Heart RRR no MRG, crisp click RUSB Lungs decreased BS, RLL rhonchi, Abd soft NT ND
pos BS LE no edema, left hip NT good ROM, Neuro following commands dysarthric left facial droop lue 11/24
Plan:
# Septic Shock from GAS with bacteremia/hypotension requiring pressors
- POA
- 09/04-blood cx pos x 2 GAS, rapid strep and throat cx - neg
- blood cx 09/05, 09/06- NGTD
- cont Rocephin #4
- DAVE 09/07- neg for vege
- weaned off Levophed
- ECHO 09/05-Compared to a prior transthoracic echocardiogram study from 07/25/2025 no significant changes are seen.
-Left ventricular ejection fraction is 55-60% by visual estimate.
-Well seated mechanical aortic valve replacement.
# Severe PCN- nutrition on board
# Acute Hypoxemic Respiratory failure
- high suspicion aspiration
- check cxr
- wean for o2>92%
# Left Hip Bursitis
- Recently underwent localized injection for gluteus tear / bursitis and got temporary symptom relief.
- pain control / supportive care.
- Ortho input appreciated, s/p repeat steroid injection 09/04
# Upper GIB
- resolved, exacerbated by warfarin
- likely from gastroparesis/retching
- DC'd NG tube
- monitor H and H-stable, PPI gtt-> IV BID->PO
- GI input appreciated
- received 1 unit prbc this admission
# Right pleural Effusion
- s/p thora 09/06 660mls pinkish fluid
- exudate
- cytology-P
- fluid cx results-NGTD
# Dysarthria- speech eval check VFSS
# Mechanical Aortic Valve
# Supratherapeutic INR
- hold Coumadin, no bleed no vit k
- therapeutic INR 2-3 target @ 2.5
- repeat INR daily
# [place] on CKD 3b
- stable
- cont lasix
- baseline 1.3
- CTM/avoid NT agents
# Thrombocytopenia- resolved
# CAD
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
- Continue metoprolol with holding parameters to avoid hypotension.
# NAGMA-improving repeat BMP in am
# Hypocalcemia- resolved
# Dysphagia- speech eval
# TME
- from sepsis and recurrent CVA
- neuro on board
- MRI- small foci of acute to subacute infarct involving both occipital lobes
- DAVE 09/07-no vegetations
- B/L CD - no significant stenosis
# Chronic HFpEF
- restarted Lasix
- Follow I/Os, daily weights
- echo 08/13- 55-60%
# Hypothyroidism- levothyroxine
# Stage III Breast Cancer/Hodgkins Lymphoma
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
DVT prophylaxis:Coumadin on hold
Code Status: DNR verified with POA
Dispo-physiatry eval for possible acute rehab admit CM aware
Time spent coordinating care, review of plan of care with resident, personally reviewed records in EMR, med rec, consults, notes, labs, radiology, d/w nursing� 52 mins
Original Note:
Today's Communication/Plan
-
Follow INR daily
Continue ceftriaxone
Chest Xray
Speech eval
Assessment / Plan
Assessment / Plan
09/04/25 Rapid Response Deteriorating Mental Status 2/2 Developing Severe Sepsis (Leukocytosis, Fever, end organ damage [place])
Acute Metabolic Encephalopathy
Septic shock from GAS with bacteremia
-After study, Sepsis due to Bacteremia with organ dysfunction of hypotension was present on admission
-Enzyme Chemist consult, input appreciated
-Transferring from ICU to telemetry
-Septic shock Levophed on hold improving BP. Goal MAP>65
-Blood Cx's drawn in ED, Strep Pyogenes (+)
-ID consult, input appreciated
-Started on Renally dose Cefazolin per discussion with ID- Replace Cefazolin with Ceftriaxone #D4 - During discharge transition to cephalexin 500mg PO TID
-Pt's + for Strep throat. Repeat blood C's x2- no growth in 48hrs- pending
-Throat Cx Group B strep - negative
-Rapid strep for GAS-negative
-Pt has low CO2 18- NAGMA 11
-IVF with LR support - DC
-Pleural fluid Cx- pending
-PMR consult, input appreciated
-productive mucous , suction of throat- Ordered Chest Xray
-Follow temp- tylenol prn
-Follow vitals
Nausea and Vomiting
Coffee Ground Emesis vs Bilious Emesis
-Warfarin was on hold at the admission because of possible GI Bleeding exacerbated by Warfarin
-Suspect previous coffee ground material secondary to bilious emesis related to sepsis and known gastroparesis
-Hx of GIB with recent scopes in April
-09/04 NGT placed to suction w/ relief symptoms- Patient had NG tube which was pulled 09/06/2025 with no significant finding of coffee-ground emesis
-CT abd/pelvis w/o contrast limited study noted, possible gastric outlet obstruction vs gastroparesis
-Hb 8.7, received 1PRBC. transfuse if Hgb<8
-Consult GI, input appreciated
-Switch to oral PPI 40mg BID from Protonix BID
-Avoid NSAID
-Improved
Pleural effusion
- On POCUS- right sided moderate pleural effusion
- Suspect for sepsis site with Bc strep. pyogenes- empyema?
- thoracentesis was performed 09/06. a total of 660 mL of serosanguineous fluid was collected
- Acid Fast Bacilli and Fluid Cx , cytology- pending
- Per Light's Criteria PF/Serum Protein= 0.58= exudative, PF/Serum LDH=0.517=does not meet criteria
- Meets 1 Lights criteria - exudative, gross look of serosanginous fluid 2/2 ? infection, ? malignancy, ? pseudoexudative 2/2 home lasix - await pathology results
- Pro BNP >89975 , transudative 2/2 HF?
- Trace Left Pleural effusion developing - discontinue IV fluid, 20mg Lasix PO QD
H/o Breast Cancer with brain lesions, metastasis vs embolic stroke
CT scan of head
At least 3 cm focus of decreased attenuation centered about the right sylvian fissure which could represent an intracranial mass with edema such as metastatic disease.
Subacute to chronic infarct cannot be differentiated on this CT without intravenous contrast.
Recommend Brain MRI without and with contrast for more complete evaluation.
Brain MRI w/wo contrast
There is no MR evidence for intracranial metastatic disease
There are small foci of acute to subacute infarct involving both occipital lobes
Focal region of abnormal restricted diffusion involving the choroid plexus within the atria of the right lateral ventricle.
Given the findings in the occipital lobe, this is suspicious for a focus of acute to subacute infarct involving the choroid plexus, although can also be seen with choroid plexus xanthogranuloma
Focal area of encephalomalacia involving the inferior right frontal and superior right temporal lobe, in the region of the insula. There is a region of abnormal diffusion extending superiorly and anteriorly to the region of encephalomalacia, and
signal abnormality extends appears increased compared to previous MRI in June 2021.
Findings would suggest focal area of acute to subacute infarct in the right frontal lobe, superior to the region of encephalomalacia
Carotid US- Minimal calcified carotid bulb plaque on each side, measurements suggestive of less than 50% stenosis on each side
-last Tx was in October
-follows with Dr Amaral, recently received outpt IV iron infusions for anemia
-Consulted Neurology, input appreciated
-posterior circulation areas of ischemia which are suggestive of embolic stroke in bilateral occipital lobes
-Provide with AC, risk of hemorrhagic conversion of small posterior lesions unlikely. Avoid bolus IV heparin
-DAVE today 09/07 - No evidence of cardioembolic source of stroke, no evidence for endocarditis
Dysarthria
Dysphagia
-likely 2/2 acute/subacute infarcts in bl occipital lobes, choroid plexus, and extension of previous right frontal lobe infarct
-Evaluated by speech therapy. Recommending IDDSI 6 soft and bite-size diet
-Start PO feeding
-New Speech eval today
Acute on CKD stage III
-likely pre-renal poor oral intake nausea vomiting
-IVF support- DC
-avoid nephrotoxins, prn Toradol discontinued
-monitor renal function
Mechanical Aortic Valve Replacement on Coumadin
HFpEF (recent ECHO EF 55-60%)
ASCVD
Prior IA, CVA with L sided weakness.
-AC was held in view of acute drop in Hb and concern for brain emboli with bacteremia
-INR therapeutic 2-3, Hold 2.5mg Coumadin INR 5.6, no obvious bleeding source, no need Vit K for now, could be from interaction with Ceftriaxone
-Continue heparin ggt per heater operator helper, monitor APTT - Discontinued IV heparin on 09/07/2025
-Repeat Lasix 20mg IV x 1 on 09/07 then switch to 20mg Lasix PO QD
-Resume Metoprolol 25mg PO BID
-Follow Daily INR
TTE
1. Compared to a prior transthoracic echocardiogram study from 07/25/2025 no significant changes are seen.
2. Left ventricle is small in size. Mild concentric left ventricular hypertrophy. Preserved left ventricular systolic function. Left ventricular ejection fraction is 55-60% by visual estimate.
3. Well seated mechanical aortic valve replacement. Peak/mean gradients across the aortic valve are 7/4 mmHg respectively. No aortic regurgitation.
4. Moderate tricuspid regurgitation. Estimated pulmonary artery pressure of 39 mmHg assuming a right atrial pressure of 3 mmHg.
5. Thickened calcified mitral valve leaflets with adequate excursion. Dense mitral annular calcification. There is at least mild to moderate mitral regurgitation which may have been underestimated due to mitral annular calcification.
Acute on Chronic Left Hip Pain
-left hip greater trochanteric bursitis and gluteal tendinitis, follows Dr Caban
-Hip X-ray appreciated no acute fracture or dislocation
-Orthopedic eval appreciated steroid injection given 09/04/25- ice and tylenol prn
-PT/OT eval - acute rehab
-PMR consult, input appreciated
Electrolyte abnormality
-hypocalcemia- repleted
Constipation
-Senokot-S , Miralax
Pulmonary HTN
- RHC 10/2024, mPA 41, PCWP 22 with CI 2.5, PVR 5.8.
- Group II with h/o AVR, elevated PCWP. Also elevated PVR suggestive of concomitant pre-capillary Pulmonary HTN
Malnutrition
-Likely Severe Protien Calorie Malnutrition vs cachexia
-Consult Dietary RN
-BMI 18
DVT ppx SCD
DNR as per POA Uziel
Dispo: Eventually hope to transfer pt to [facility] after discharge
Anticipated Discharge: > 48 hours
Subjective/Interval History
-
Date of Service: September 08, 2025
She has SOB, shows she can not talk because of her mucous in her throat. She has left hip pain. Denies CP, palpitation, abdominal pain.
Objective Data
-
Labs:
Laboratory Results
09/08/25
04:57
WBC 5.5
Hgb 13.3
Hct 41.0
Plt Count 147
PT 50.6 H
INR 5.60 H* D
APTT 53.5 H
Sodium 142
Potassium 4.1
Chloride 110 H
Carbon Dioxide 18 L
BUN 65 H
Creatinine 1.6 H
Glucose 100 H
Calcium 8.9
Vital Signs:
Vital Signs
Temp Pulse Resp BP Pulse Ox
98.5 F 101 18 146/45 94
09/08/25 03:32 09/08/25 03:32 09/08/25 03:32 09/08/25 03:32 09/08/25 03:32
I&O
09/07/25 09/08/25 09/09/25
06:59 06:59 06:59
Intake Total 630 / 630 510 / 510
Output Total 2525 / 2975 2200 / 2200
Balance -1895 / -2345 -1690 / -1690
Review of Systems
-
History Source: Patient
Constitutional: Reports No Symptoms and Weakness (left leg)
EENT: Reports No Symptoms Reported
Respiratory: Reports No Symptoms
Cardiac: Reports No Symptoms
Abdomen/GI: Reports No Symptoms
Breast: Reports No Symptoms
Genitourinary: Reports No Symptoms
Musculoskeletal: Reports Joint Swelling (left hip)
Skin: Reports No Symptoms
Neuro: Reports No Symptoms
Endocrine: Reports No Symptoms
Hematologic / Lymphatic: Reports Swollen Glands (right and left cervical LAP)
Allergy / Immunology: Reports No Symptoms
Physical Exam
-
General: Well Developed, Pain, Slurred Speech, Appears Chronically Ill and Cachectic
HEENT: Normocephalic, Atraumatic and Pharyngeal Erythema (goss patch)
Respiratory: Clear to Auscultation and Other (4L Oxygen NC)
Cardiac: Regular Rhythm and S1/S2
Breast: Deferred by me
GI: Soft, Nontender, Nondistended and Normal Bowel Sounds
Rectal: Deferred by Provider
Genito-urinary: [place]
Musculoskeletal: No Clubbing, No Cyanosis and No Edema
Skin: Warm and Dry
Neuro: AO x 3
Psych: Calm
[2025-09-08 07:17] LABS: Magnesium 2.0 mg/dl (1.6-2.3)
--- NOTE | 2025-09-08 07:35 | W.PN.UPDATE ---
Update Note
Progress Note Update
Patient seen this morning and minimally verbal. She is able to relay with her hand that left hip pain is so-so. She is afebrile and WBC has normalized. Examination of the left hip shows dramatic improvement pain with palpation. No warmth or
erythema noted. Passive motion of the left hip is nonpainful. Distal neurovascular was intact. Ice, Tylenol and physical therapy treatment for now. She was able to verbalize that she is having difficulty breathing so I alerted her nurse so she
may be evaluated. Orthopedics to sign off for now. Follow-up in office in the next 2 to 4 weeks.
--- NOTE | 2025-09-08 08:51 | W.PN.ID1 ---
Date of Service
Date of Service: September 08, 2025
Today's Communication
Continue ceftriaxone.
Assessment / Plan
# Group A streptococcus bacteremia
# Suspect PNA source of Group A strep
#s/p Septic shock
# Multiple acute/subacute CVA; DAVE no source of embolic CVA
# Fever resolved
# Leukocytosis resolved
# Left hip pain/trochanteric bursitis/gluteus tendinitis s/p left hip injection x 2
# Gastroparesis, recurrent obscure coffee-groung emesis
# Hx Splenectomy
# Stage 3 breast ca (not on tx)
# Mechanical AVR
- with Group A strep pharyngitis
Swab pt's throat negative rapid strep, neg cx
- Repeat blood cx's x 2 negative to date
- DAVE: no vegetation
- Right pleural effusion s/p thora 660cc serosanguineous fluid; exudative, cx negative to date
- Continue with ceftriaxone (d4)
- At time of dc, transition to cephalexin 500mg po tid.
Chief Complaint
-: Clinical Sepsis and Bacteremia
Subjective / Review of Systems
No new complaints. Left hip pain improved.
Vital Signs / Physical Exam
Vital Signs
Vital Signs
Temp Pulse Resp BP Pulse Ox
98.3 F 95 20 130/66 96
09/08/25 07:13 09/08/25 07:13 09/08/25 07:13 09/08/25 07:13 09/08/25 07:13
Physical Exam
Constitutional: Chronically Ill
Cardiovascular: Regular Rate and S1/S2
Pulmonary: Rales (bibase crackles)
Gastrointestinal: Soft, Non Tender, Non Distended and Normal Bowel Sounds
Genito-Urinary: Negative CVA Tenderness
Extremities: Negative Edema
Musculoskeletal: Other (left hip no erythema/warmth/effusion)
Neurological: Awake
Objective Data
Lab Data
Lab Results
09/08/25 04:57
09/08/25 04:57
PT 50.6 Sec (11.4-14.6) H 09/08/25 04:57
INR 5.60 H* D 09/08/25 04:57
APTT 53.5 Sec (23.4-35.0) H 09/08/25 04:57
Estimated Creat Clear 19 ml/min 09/08/25 04:57
Lactic Acid 1.9 mmol/L (0.7-2.0) 09/05/25 21:46
Total Bilirubin 0.7 mg/dl (0.2-1.3) 09/07/25 03:19
AST 34 U/L (14-36) 09/07/25 03:19
ALT 16 U/L (0-35) 09/07/25 03:19
Alkaline Phosphatase 103 U/L (38-126) 09/07/25 03:19
Most recent labs reviewed.
Micro Results:
09/06/25 04:18 Blood Culture - Preliminary
Blood/Venous No Growth in 48 hours- Final report to follow
09/05/25 14:28 Blood Culture - Preliminary
Blood/Venous No Growth in 48 hours- Final report to follow
09/06/25 11:09 Body Fluid Culture - Preliminary
Pleural Fluid No Growth After 18-24 Hours
Gram Stain - Final
09/05/25 13:59 Streptococcus Screen (VANDANA) - Final
Throat/Pharynx No Beta Hemolytic Streptococci Isolated
Streptococcus Rapid Screen - Final
Rapid Strep Screen (Group A) Negative
09/05/25 13:59 Throat Culture - Final
Throat/Pharynx Usual Respiratory Tawnya
09/06/25 11:09 Acid Fast Bacilli Smear - Pending
Pleural Fluid Acid Fast Bacilli Culture - Pending
09/04/25 02:51 Urine Culture - Final
Urine NO GROWTH
09/04/25 02:50 Blood Culture - Preliminary
Blood/Venous Streptococcus pyogenes
Gram Stain - Final
09/04/25 02:50 Blood Culture - Preliminary
Blood/Venous Streptococcus pyogenes
Gram Stain - Final
09/06/25 CXR: Interval increase in opacification of the right lower lung, most likely atelectasis. Evidence for small to moderate right pleural effusion including lateral loculation. Small left pleural effusion. Parenchymal opacity within the left
lower lung, mainly medially, with differential considerations of atelectasis and/or pneumonia.
11/05/24 Brain MRI: There are small foci of acute to subacute infarct involving both occipital lobes; suspicious for a focus of acute to subacute infarct involving the choroid plexus, although can also be seen with choroid plexus xanthogranuloma.
Findings would suggest focal area of acute to subacute infarct in the right frontal lobe, superior to the region of encephalomalacia.
09/04/25 CXR: The lungs are clear.
09/04/25 CT a/P: Markedly limited CT of the abdomen and pelvis as a result of numerous factors,
09/04/[address]: At least 3 cm focus of decreased attenuation centered about the right sylvian fissure which could represent an intracranial mass with edema such as metastatic disease. Subacute to chronic infarct cannot be differentiated on this CT
without intravenous contrast. Recommend Brain MRI without and with contrast for more complete evaluation.
09/04/25 L HIP XRAY:No acute fracture or dislocation. The hip joint space is maintained. Gluteus medius calcific tendinosis.
08/17/25 outside MRI wo contrast left hip report: ' There is evidence of a tear of the distal gluteus minimus muscle and tendon at the level of the greater trochanter with evidence of peritrochanteric edema and fluid. Incidental inguinal lymph
nodes are noted bilaterally.
[2025-09-08] MEDS: PROTONIX 40 MG PO ×2 (08:54→19:21)
[2025-09-08] MEDS: LASIX 20 MG PO (08:54)
[2025-09-08] MEDS: TOPROL XL 25 MG PO ×2 (08:55→19:23)
--- NOTE | 2025-09-08 08:56 | W.PN.PUL.V3 ---
Today's Communication / Plan
-
Add supplemental oxygen
Incentive spirometry, flutter, nebulizers, saline
Assessment
-
Patient
Is a 69-year-old female who was admitted to the hospital on 09/04 with chief complaint of left hip pain. Patient had a hip x-ray performed on admission which was unrevealing without any evidence of fracture. Patient has a complex medical history
with prior history of Hodgkin's lymphoma treated with radiation, breast cancer, aortic stenosis s/p mechanical valve replacement on chronic Coumadin therapy as well as multiple episodes of GI bleed with unrevealing EGD and colonoscopy with concern
for small bowel AVMs. Patient has had blood transfusions in the past for anemia. Reportedly patient developed left pain on the hip area, couple of days prior to admission which has been steadily worsening. Patient was evaluated by orthopedic
surgery as outpatient and had a localized steroid injection about 10 days ago for suspected left hip greater trochanteric bursitis and gluteal tendinitis. Patient had another injection of Kenalog 40 mg along with lidocaine on 09/04. Patient
reports improved pain since. In view of recurrence of pain she presented to the emergency room.
Hospital course was complicated by increased lethargy, disorientation and altered mental status which prompted a CT head which was suggestive of a mass with edema suspicious for metastasis versus old stroke. Patient also noted to have elevated
lactate and subsequently positive blood cultures with Streptococcus pyogenes. In view of septic shock and altered mental status, patient had a rapid response event called and was transferred to ICU for further management. Project Production Engineer consultation
was requested for further input.
Septic shock with lactic acidosis
Anemia-acute blood loss
Right pleural effusion status post thoracentesis--660 mL liter serosanguineous fluid
[place]
Metabolic encephalopathy with brain lesions metastatic versus old CVA
Pulmonary hypertension
Status post AVR
Heart failure preserved EF
Plan
Respiratory status improved but continues to complain shortness of breath
Add supplemental oxygen-was hypoxemic on room air
Incentive spirometry added
Acapella added
Mucus clearing devices-Mucinex added
Nebulizers
Saline nebulizers to help with secretion management
Aspiration precautions
Monitor for right pleural effusion reaccumulation-status post right thoracentesis--660 mL serosanguineous fluid-pseudo exudate
Check cultures
Infectious disease following
Antibiotics per infectious disease-ceftriaxone 2 g every 24
DAVE without evidence for vegetation
Pressors weaned
Lactate trended down
Monitor hemoglobin-stable at 13.3
Transfuse as needed
Previous EGD and colonoscopy unrevealing-? Small bowel AVMs
[place] improving
Follow renal function and electrolytes
Follow metabolic encephalopathy with brain lesions
MRI suggestive of CVA
Neurology was following
Cardiology following-correspondence reviewed
DAVE negative
Chronic Coumadin for AVR-mechanical valve
INR elevated-Coumadin held
Group 2 pulmonary hypertension
DVT prophylaxis-on Coumadin
GI prophylaxis-on pantoprazole
Nutrition
Early mobilization/physical therapy
Subjective Data
-
Date of Service:
Date of Service: September 08, 2025
Chief Complaint: Pulmonary Follow Up and Dyspnea Follow Up
Subjective:
Complains of some shortness of breath and chest congestion, minimal cough, feels weak, not lightheaded, no chest pain or abdominal pain
Review of Systems
General: Other (Per HPI)
Objective Data
Data Reviewed
Vital Signs / I&O:
Vital Signs
Temp Pulse Resp BP Pulse Ox
98.3 F 95 20 130/66 96
09/08/25 07:13 09/08/25 08:55 09/08/25 07:13 09/08/25 08:55 09/08/25 07:13
Intake and Output
09/07/25 09/08/25 09/09/25
06:59 06:59 06:59
Intake Total 630 / 630 510 / 510
Output Total 2525 / 2975 2200 / 2200
Balance -1895 / -2345 -1690 / -1690
SaO2: 96
Nasal Cannula flow liters per minute: 4
Physical Exam
General: Respiratory Distress (n) and Comfortable
HEENT: Normocephalic, Anicteric and Moist Mucous Membranes
Cardiovascular: Regular Rhythm
Respiratory: Crackles (Few basilar), Rhonchi (Expiratory), Non-Labored Respirations, Accessory Resp Muscle Use (n) and Stridor (n)
GI: Soft and Non Distended
Neurology: Awake, Alert and No Motor Deficits
Skin: Warm, Good Color, Cyanosis (n) and Jaundice (n)
Labs/Micro/Reports
Lab Data
09/08/25 04:57
09/08/25 04:57
Laboratory Results
09/07/25 09/08/25
03:30 04:57
PT 50.6 H
INR 5.60 H* D
APTT Cancelled 53.5 H
Microbiology
09/06/25 04:18 Blood/Venous Blood Culture - Preliminary
No Growth in 48 hours- Final report to follow
09/05/25 14:28 Blood/Venous Blood Culture - Preliminary
No Growth in 48 hours- Final report to follow
09/06/25 11:09 Pleural Fluid Body Fluid Culture - Preliminary
No Growth After 18-24 Hours
09/06/25 11:09 Pleural Fluid Gram Stain - Final
09/05/25 13:59 Throat/Pharynx Streptococcus Screen (VANDANA) - Final
No Beta Hemolytic Streptococci Isolated
09/05/25 13:59 Throat/Pharynx Streptococcus Rapid Screen - Final
Rapid Strep Screen (Group A) Negative
09/05/25 13:59 Throat/Pharynx Throat Culture - Final
Usual Respiratory Tawnya
09/04/25 02:51 Urine Urine Culture - Final
NO GROWTH
09/04/25 02:50 Blood/Venous Blood Culture - Preliminary
Streptococcus pyogenes
09/04/25 02:50 Blood/Venous Gram Stain - Final
09/04/25 02:50 Blood/Venous Blood Culture - Preliminary
Streptococcus pyogenes
09/04/25 02:50 Blood/Venous Gram Stain - Final
[2025-09-08] MEDS: ANESTHETIC LOZENGE 1 LOZENGE PO (09:10)
[2025-09-08] MEDS: DILAUDID 0.25 MG IV ×2 (09:10→19:42)
--- NOTE | 2025-09-08 09:32 | RESPNOTE ---
Patient with difficulty clearing mucus from throat per RN. Patient evaluated at bedside. Patient states she has a minimal to no gag reflex and has a sore throat. Patient was orally deep suctioned without incident for a small amount of thick pale
yellow mucus. Patient states some relief after suctioning. Will continue to monitor.
--- NOTE | 2025-09-08 10:07 | PTCARENOTE ---
pt c/o difficulty breathing and SOB at change of shift. pt on room air 86% place pt on 4L o2 92%.
[2025-09-08] MEDS: SENOKOT-S 1 TABLET PO ×2 (10:14→19:21)
[2025-09-08] MEDS: MIRALAX 17 GRAMS PO (10:14)
[2025-09-08] MEDS: DUONEB INH ×2 (11:14→14:36)
[2025-09-08] MEDS: STERILE WATER FOR INJECTION 20 ML IV (12:50)
[2025-09-08] MEDS: ROCEPHIN 2000 MG IV (12:50)
[2025-09-08] MEDS: FLUSH (NSS) 1 FLUSH IV (12:51)
--- NOTE | 2025-09-08 13:29 | CM ---
PM&R consult in. Family is interested in Acute rehab at [facility]. Referral is in. Liaison is aware of the pt.
Plan: DC to Acute Rehab if appropriate. Awaiting PM&R consult completion
--- NOTE | 2025-09-08 15:30 | PTOTSP ---
Speech Language Pathology
Pt seen for dysphagia tx. present at bedside. When CUSTOMER SALES CONSULTANT walked in room, pt gestured to shoo CUSTOMER SALES CONSULTANT away. encouraged her to talk, and she stated that 20 people have been in to see her in the last 6 hours. Discussed reason for CUSTOMER SALES CONSULTANT with
concerns of not tolerating liquids. When talking with CUSTOMER SALES CONSULTANT, labial leakage of liquids noted. Pt had not drank anything with CUSTOMER SALES CONSULTANT in room, stated she had a sip of milk prior to CUSTOMER SALES CONSULTANT arrival. Pt cleared oral cavity with napkins.
Pt with unclear report of baseline. Agreed that she had swallowing difficulty at home, but that it's worse now. Stated she is having trouble getting anything down, but noted to swallow liquids during this session. reported significant
dysgeusia since last CVA. Pt stated at home, she basically only eats maida doone cookies, chicken, cheese crackers, and liquids given inability to tolerate other items secondary to dysgeusia.
Asked pt to take a sip of liquid with CUSTOMER SALES CONSULTANT present. Pt initially refused, but was willing to participate with significant encouragement. Seen with 2 single sips of liquids. Pt with piecemeal deglutition, approximately 3 sips total, suspect as way
to manage bolus. Brief throat clear x1. Pt then expectorated thicker mucous. Diffuse oral residue with anterior loss noted, benefited from oral suctioning. Pt refused any solid. Current concern re: swallow function. Again discussed importance
of VSE, and pt agreeable to complete tomorrow.
Recommend:
(1) VSE 09/09
(2) Thin liquids only (no solids) until VSE completed
(3) Aspiration precautions: sit upright, single sips, slow rate, ensure oral cavity clear post P.O. intake
(4) Meds as best tolerated
(5) CUSTOMER SALES CONSULTANT to continue to follow
[2025-09-08] MEDS: MUCINEX 600 MG PO (19:21)
[2025-09-08] MEDS: SODIUM CHLORIDE 3% FOR INHALATION 1 VIAL INH (19:46)
[2025-09-08] MEDS: DUONEB 3 ML INH (19:46)
[2025-09-08] MEDS: PULMICORT 0.5 MG INH (19:47)
--- NOTE | 2025-09-08 20:50 | PTCARENOTE ---
Addendum entered by Hali Quintana RN 09/09/25 05:54:
pt tele monitor alarming 150s again. pt still asymptomatic, denies CP, palpitations and SOB. rectal temp 99.2, BP 183/63, RR 32, 95 2L. ekg done afib with rvr (hr 150). SUPERVISOR DENTURE DEPARTMENT made aware. 5 mg IVP Cardizem ordered and given. pt hr still sustaining
120s-140s but ranging up to 170s. BMP ordered, labs drawn. Cardizem drip ordered and started at 5 mg/hr, BP 183/63. tele monitor reading 90s nsr, BP 153/76. SUPERVISOR DENTURE DEPARTMENT ordered to keep Cardizem drip 5 mg/hr infusing. call roth within reach, plan of care
ongoing.
Original Note:
pt tele monitor alarming 150s-160s. pt asymptomatic, denies CP, palpitations and SOB. temp 98.2, BP 135/53, RR 32, 98 2L. pt HR sustaining 150s, ranging up to 170s. EKG done afib with rvr (hr 154). bladder scanned pt 74 mL. SUPERVISOR DENTURE DEPARTMENT made aware and at
bedside. 5 mg IV metoprolol given. labs drawn. pt HR continues to sustain in 150s. 5 mg IV Cardizem given. tele reading NSR HR 80s. no further orders at this time. plan of care ongoing.
[2025-09-08] MEDS: LOPRESSOR 5 MG IV (21:04)
[2025-09-08 21:29] LABS: Hematocrit 37.7 % (37.0-47.0); Hemoglobin 12.9 g/dL (12.0-16.0); Mean Corp Hgb Conc. 34.2 g/dL (33.0-37.0); Mean Corpuscular Volume 82.3 fL (81.0-99.0); Platelet Count 172 10^3/uL (130-400); Red Cell Dist. Width 19.6 % (11.5-14.5)
--- NOTE | 2025-09-08 21:29 | W.PN.UPDATE ---
Update Note
Progress Note Update
2049 RN reports HR >150's irregular, BP 135/53 98.2, 22 95% 2l , EKG Afib with RVR, no hx of Afib noted
patient seen and evaluated. cachectic, oriented, denies chest discomfort, palpitations, dizziness or lightheaded. HR irregular, tachy, lungs clear,
denies any pain at present
received Metoprolol suc 25mg PO at 1920.
2100 5mg IV Metoprolol x1
labs wnl Trop 1.050
2119 HR > 130's- 150's
Cardizem 5mg IV x 1
2149 converted to NSR 80
Sales Agent Insurance made aware, no further interventions.
HR 0300 HR >130's-150's BP 183/63 Cardizem 5mg IV x1
HR 120's-140's 152/66 Cardizem infusion @5mg/hr
repeat labs , INR>8, patient unable to swallow PO Meds at this time per RN
due for VS today
HR NSR 90's at present. will maintain Cardizem infusion.
Afib likely due to pleural effusion? hypovolumic?
[2025-09-08] MEDS: CARDIZEM 5 MG IV (21:37)
[2025-09-08 21:52] LABS: Blood Urea Nitrogen 78 mg/dl (7-17); Calcium 8.6 mg/dl (8.4-10.2); Carbon Dioxide 16 mmol/L (22-30); Chloride 111 mmol/L (98-107); Estimated Creatinine Clearance 19 ml/min; Glucose 158 mg/dl (70-99); Magnesium 2.3 mg/dl (1.6-2.3); Potassium 3.6 mmol/L (3.5-5.1); Sodium 139 mmol/L (135-145); eGFR 34.27
[2025-09-08 21:57] LABS: Troponin I 1.050 ng/ml
[2025-09-09] VITALS (9 sets, daily range): BP systolic 152–183; BP diastolic 58–78; BMI 18.1
[2025-09-09] MEDS: CARDIZEM 5 MG IV (02:43)
[2025-09-09] MEDS: CARDIZEM 125 IV (04:17)
[2025-09-09 04:39] LABS: PT 70.8 Sec (11.4-14.6)
[2025-09-09 05:10] LABS: INR > 8.0
[2025-09-09 05:36] LABS: Blood Urea Nitrogen 83 mg/dl (7-17); Calcium 9.0 mg/dl (8.4-10.2); Carbon Dioxide 18 mmol/L (22-30); Chloride 111 mmol/L (98-107); Estimated Creatinine Clearance 19 ml/min; Glucose 179 mg/dl (70-99); Potassium 3.8 mmol/L (3.5-5.1); Sodium 142 mmol/L (135-145); eGFR 34.27
[2025-09-09] MEDS: DUONEB 3 ML INH ×4 (07:17→20:18)
[2025-09-09] MEDS: SODIUM CHLORIDE 3% FOR INHALATION 1 VIAL INH ×2 (07:17→20:15)
[2025-09-09] MEDS: PULMICORT 0.5 MG INH ×2 (07:17→20:15)
--- NOTE | 2025-09-09 07:49 | W.PN.HOSP.TC ---
Addendum entered and electronically signed by Richardson Hawthorne MD 09/09/25 22:19:
Attending Addendum-
I saw and evaluated the patient. I reviewed the resident�s note and agree with findings and plan as documented in the resident�s note. Sub: patient with dysarthria but improved. 'I want ferny i dont care if i choke'. afebrile. follows commands.
went into Afib with RVR overnight. seen with present. Full 12 point ROS reviewed and negative except as documented Exam: Vitals reviewed in chart GEN-NAD Heart RRR no MRG, crisp click RUSB Lungs decreased BS, RLL rhonchi, Abd soft NT ND pos
BS LE no edema, left hip NT good ROM, Neuro following commands dysarthric left facial droop lue 11/24
Plan:
# Septic Shock from GAS bacteremia/hypotension requiring pressors
- POA
- 09/04-blood cx pos x 2 GAS, rapid strep and throat cx - neg
- blood cx 09/05, 09/06- NGTD
- cont Rocephin #5-> Keflex on DC until 09/18
- DAVE 09/07- neg for vege
- weaned off Levophed
- ECHO 09/05-Compared to a prior transthoracic echocardiogram study from 07/25/2025 no significant changes are seen.
-Left ventricular ejection fraction is 55-60% by visual estimate.
-Well seated mechanical aortic valve replacement.
# Severe PCN- nutrition on board
#Dysphagia
-speech rec NPO but patient wants to to take PO d/w patient risks of aspiration and - accepts risks- POA present
-VFSS 09/09-moderate oral and moderate-severe pharyngeal dysphagia
# Acute Hypoxemic Respiratory failure
- from aspiration
- CXR with PNA- d/w ID no indication to add abx
- wean for o2>92%
# A fib with RVR-new
- cont cardizem gtt
- appreciate cards into
- increase metoprolol attempt to dc drip
- cont Coumadin when INR therapeutic
# Left Hip Bursitis
- resolved
- Recently underwent localized injection for gluteus tear / bursitis and got temporary symptom relief.
- pain control / supportive care.
- Ortho input appreciated, s/p steroid injection 09/04
# Upper GIB
- resolved, exacerbated by warfarin
- likely from gastroparesis/retching
- DC'd NG tube
- monitor H and H-stable, cont PPI
- GI input appreciated
- received 1 unit prbc this admission
# Right pleural Effusion
- s/p thora 09/06 660mls pinkish fluid
- exudate
- cytology-P
- fluid cx results-NGTD
# Dysarthria- speech therapy
# Mechanical Aortic Valve
# Supratherapeutic INR
- INR > 8 give vit k po 2.5 x 1 -09/09
- hold Coumadin
- therapeutic INR 2-3 target @ 2.5
- repeat INR daily
# [place] on CKD 3b
- stable
- cont lasix
- baseline 1.3
- CTM/avoid NT agents
# Thrombocytopenia- resolved
# CAD
- cardiac cath 10/28/2024-CAD with 60 to 70% ostial to proximal LM stenosis, 100% NEEDLEMAKER proximal RCA with [id number]-ch-adihn collaterals
- Continue metoprolol with holding parameters to avoid hypotension.
# TME
- from sepsis and recurrent CVA
- neuro on board
- MRI- small foci of acute to subacute infarct involving both occipital lobes
- DAVE 09/07-no vegetations
- B/L CD - no significant stenosis
# Chronic HFpEF
- cont Lasix
- Follow I/Os, daily weights
- echo 08/13- 55-60%
# Hypothyroidism- levothyroxine
# Stage III Breast Cancer/Hodgkins Lymphoma
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
DVT prophylaxis:Coumadin on hold
Code Status: DNR verified with POA
Dispo-physiatry eval for possible acute rehab
Time spent coordinating care, review of plan of care with resident, personally reviewed records in EMR, med rec, consults, notes, labs, radiology, d/w nursing, POA, speech, cards � 53 mins
Original Note:
Today's Communication/Plan
-
Continue Cardizem
Continue Ceftriaxone
Hold Warfarin
Follow INR
Assessment / Plan
Assessment / Plan
09/04/25 Rapid Response Deteriorating Mental Status 2/2 Developing Severe Sepsis (Leukocytosis, Fever, end organ damage [place])
Acute Metabolic Encephalopathy
Septic shock from GAS with bacteremia
-After study, Sepsis due to Bacteremia with organ dysfunction of hypotension was present on admission
-Detective Bowling Alley consult, input appreciated
-Transferring from ICU to telemetry
-Septic shock Levophed on hold improving BP. Goal MAP>65
-Blood Cx's drawn in ED, Strep Pyogenes (+)
-ID consult, input appreciated
-Started on Renally dose Cefazolin per discussion with ID- Replace Cefazolin with Ceftriaxone #D5 - When able to take PO transition to cephalexin 500mg PO TID till 09/18/2025
-Pt's + for Strep throat. Repeat blood C's x2- no growth in 48hrs- pending
-Throat Cx Group B strep - negative
-Rapid strep for GAS-negative
-Pt has low CO2 18- NAGMA 11
-IVF with LR support - DC
-Pleural fluid Cx- pending
-PMR consult, input appreciated
-productive mucous , suction of throat- Ordered Chest Xray for hypoxia
-Follow temp- tylenol prn
-Follow vitals
Chest Xray
-Small to moderate right pleural effusion with associated atelectasis and/or pneumonia, progressed
-Small left pleural effusion with associated atelectasis and/or pneumonia, slightly improved
-Suspect mild CHF
New Atrial fibrillation
- Overnight she had HR >150's irregular, BP 135/53 98.2, 22 95% 2l , EKG Afib with RVR, no hx of Afib noted
- Received Metoprolol, Cardizem
- Continue Cardizem infusion 5ml/hr
- Troponin 1.050
- Consult cardiology, input appreciated
- Afib likely due to ? aspiration ? pleural effusion? hypovolumic?
- CHADSVASC score 7
Nausea and Vomiting
Coffee Ground Emesis vs Bilious Emesis
-Warfarin was on hold at the admission because of possible GI Bleeding exacerbated by Warfarin
-Suspect previous coffee ground material secondary to bilious emesis related to sepsis and known gastroparesis
-Hx of GIB with recent scopes in April
-09/04 NGT placed to suction w/ relief symptoms- Patient had NG tube which was pulled 09/06/2025 with no significant finding of coffee-ground emesis
-CT abd/pelvis w/o contrast limited study noted, possible gastric outlet obstruction vs gastroparesis
-Hb 8.7, received 1PRBC. transfuse if Hgb<8 - Hb 13.1
-Consult GI, input appreciated
-Switch to oral PPI 40mg BID from Protonix BID
-Avoid NSAID
-Improved
Pleural effusion
- On POCUS- right sided moderate pleural effusion
- Suspect for sepsis site with Bc strep. pyogenes- empyema?
- thoracentesis was performed 09/06. a total of 660 mL of serosanguineous fluid was collected
- Acid Fast Bacilli and Fluid Cx - neg prelim
- Per Light's Criteria PF/Serum Protein= 0.58= exudative, PF/Serum LDH=0.517=does not meet criteria
- Meets 1 Lights criteria - exudative, gross look of serosanginous fluid 2/2 ? infection, ? malignancy, ? pseudoexudative 2/2 home lasix - await pathology results
- Pro BNP >98464 , transudative 2/2 HF?
- Trace Left Pleural effusion developing - discontinue IV fluid, 20mg Lasix PO QD
H/o Breast Cancer with brain lesions, metastasis vs embolic stroke
CT scan of head
At least 3 cm focus of decreased attenuation centered about the right sylvian fissure which could represent an intracranial mass with edema such as metastatic disease.
Subacute to chronic infarct cannot be differentiated on this CT without intravenous contrast.
Recommend Brain MRI without and with contrast for more complete evaluation.
Brain MRI w/wo contrast
There is no MR evidence for intracranial metastatic disease
There are small foci of acute to subacute infarct involving both occipital lobes
Focal region of abnormal restricted diffusion involving the choroid plexus within the atria of the right lateral ventricle.
Given the findings in the occipital lobe, this is suspicious for a focus of acute to subacute infarct involving the choroid plexus, although can also be seen with choroid plexus xanthogranuloma
Focal area of encephalomalacia involving the inferior right frontal and superior right temporal lobe, in the region of the insula. There is a region of abnormal diffusion extending superiorly and anteriorly to the region of encephalomalacia, and
signal abnormality extends appears increased compared to previous MRI in June 2021.
Findings would suggest focal area of acute to subacute infarct in the right frontal lobe, superior to the region of encephalomalacia
Carotid US- Minimal calcified carotid bulb plaque on each side, measurements suggestive of less than 50% stenosis on each side
-last Tx was in October
-follows with Dr Amaral, recently received outpt IV iron infusions for anemia
-Consulted Neurology, input appreciated
-posterior circulation areas of ischemia which are suggestive of embolic stroke in bilateral occipital lobes
-Provide with AC, risk of hemorrhagic conversion of small posterior lesions unlikely. Avoid bolus IV heparin
-DAVE today 09/07 - No evidence of cardioembolic source of stroke, no evidence for endocarditis
Dysarthria
Dysphagia
-likely 2/2 acute/subacute infarcts in bl occipital lobes, choroid plexus, and extension of previous right frontal lobe infarct
-Evaluated by speech therapy. Recommending IDDSI 6 soft and bite-size diet
-Start PO feeding
-New Speech eval - thin liquids only until VSE completed
-VSE today
- Fluoroscopic evidence of laryngeal penetration and aspiration was demonstrated.
- Vallecular residue noted throughout study with all barium consistencies.
- Brief fluoroscopy of the thoracic esophagus did not demonstrate any residue
-NPO was recommended, Pt and her Silvino stated wanting to continue with full liquids - understanding the risk of aspiration. Risks from aspiration and her DNI, DNR status were discussed with them.
Acute on CKD stage III
-likely pre-renal poor oral intake nausea vomiting
-IVF support- DC
-avoid nephrotoxins, prn Toradol discontinued
-monitor renal function
Mechanical Aortic Valve Replacement on Coumadin
HFpEF (recent ECHO EF 55-60%)
ASCVD
Prior AL, CVA with L sided weakness.
-AC was held in view of acute drop in Hb and concern for brain emboli with bacteremia
-Continue heparin ggt per recreation therapy teacher, monitor APTT - Discontinued IV heparin on 09/07/2025
-Repeat Lasix 20mg IV x 1 on 09/07 then switch to 20mg Lasix PO QD
-Resume Metoprolol 25mg PO BID
-therapeutic INR 2-3
-INR>8 Hold 2.5mg Coumadin, no obvious bleeding source, received 2.5mg Vit K PO, ?interaction with Ceftriaxone
-Follow Daily INR
TTE
1. Compared to a prior transthoracic echocardiogram study from 07/25/2025 no significant changes are seen.
2. Left ventricle is small in size. Mild concentric left ventricular hypertrophy. Preserved left ventricular systolic function. Left ventricular ejection fraction is 55-60% by visual estimate.
3. Well seated mechanical aortic valve replacement. Peak/mean gradients across the aortic valve are 7/4 mmHg respectively. No aortic regurgitation.
4. Moderate tricuspid regurgitation. Estimated pulmonary artery pressure of 39 mmHg assuming a right atrial pressure of 3 mmHg.
5. Thickened calcified mitral valve leaflets with adequate excursion. Dense mitral annular calcification. There is at least mild to moderate mitral regurgitation which may have been underestimated due to mitral annular calcification.
Acute on Chronic Left Hip Pain
-left hip greater trochanteric bursitis and gluteal tendinitis, follows Dr Caban
-Hip X-ray appreciated no acute fracture or dislocation
-Orthopedic eval appreciated steroid injection given 09/04/25- ice and tylenol prn
-PT/OT eval - acute rehab
-PMR consult, input appreciated
Electrolyte abnormality
-hypocalcemia- repleted
Constipation
-Senokot-S , Miralax
Pulmonary HTN
- RHC 10/2024, mPA 41, PCWP 22 with CI 2.5, PVR 5.8.
- Group II with h/o AVR, elevated PCWP. Also elevated PVR suggestive of concomitant pre-capillary Pulmonary HTN
Malnutrition
-Likely Severe Protien Calorie Malnutrition vs cachexia
-Consult Dietary RN
-BMI 18
DVT ppx SCD
DNR as per POA Uziel
Dispo: Eventually hope to transfer pt to [facility] after discharge
Anticipated Discharge: > 48 hours
Subjective/Interval History
-
Date of Service: September 09, 2025
She is conversant and her eyes were open. Her Silvino mentioned she had bms yesterday and there was not any blood. She denies SOB, palpitations, chest pain. Per nurse, overnight she had an afib.
Objective Data
-
Labs:
Laboratory Results
09/08/25 09/09/25 09/09/25
21:19 04:13 07:47
WBC 13.6 H Cancelled
Hgb 12.9 Cancelled
Hct 37.7 Cancelled
Plt Count 172 Cancelled
PT 70.8 H
INR > 8.0 H* D
Sodium 139 142
Potassium 3.6 3.8
Chloride 111 H 111 H
Carbon Dioxide 16 L 18 L
BUN 78 H 83 H
Creatinine 1.6 H 1.6 H
Glucose 158 H 179 H
Calcium 8.6 9.0
Vital Signs:
Vital Signs
Temp Pulse Resp BP Pulse Ox
99.2 F 95 14 168/67 92
09/09/25 02:30 09/09/25 07:21 09/09/25 07:21 09/09/25 06:18 09/09/25 07:21
I&O
09/08/25 09/09/25 09/10/25
06:59 06:59 06:59
Intake Total 510 / 510 420 / 420
Output Total 2200 / 2200 275 / 275
Balance -1690 / -1690 145 / 145
Review of Systems
-
History Source: Patient
Constitutional: Reports No Symptoms and Weakness (left leg)
EENT: Reports No Symptoms Reported
Respiratory: Reports No Symptoms
Cardiac: Reports No Symptoms
Abdomen/GI: Reports No Symptoms
Breast: Reports No Symptoms
Genitourinary: Reports No Symptoms
Musculoskeletal: Reports Joint Swelling (left hip)
Skin: Reports No Symptoms
Neuro: Reports No Symptoms
Endocrine: Reports No Symptoms
Allergy / Immunology: Reports No Symptoms
Physical Exam
-
General: Well Developed, Conversant, Appears Chronically Ill and Cachectic
HEENT: Normocephalic, Atraumatic and Pharyngeal Erythema (goss patch)
Respiratory: Clear to Auscultation and Other (4L Oxygen NC)
Cardiac: Regular Rhythm and S1/S2
Breast: Deferred by me
GI: Soft, Nontender, Nondistended and Normal Bowel Sounds
Rectal: Deferred by Provider
Genito-urinary: Church
Musculoskeletal: No Clubbing, No Cyanosis and No Edema
Skin: Warm and Dry
Neuro: AO x 3
Psych: Calm
[2025-09-09 08:31] LABS: Hematocrit 38.6 % (37.0-47.0); Hemoglobin 13.1 g/dL (12.0-16.0); Mean Corp Hgb Conc. 33.9 g/dL (33.0-37.0); Mean Corpuscular Volume 82.1 fL (81.0-99.0); Platelet Count 192 10^3/uL (130-400); Red Cell Dist. Width 19.1 % (11.5-14.5)
[2025-09-09 08:52] LABS: Nucleated Red Blood Cells % 4.0 %
[2025-09-09] MEDS: TOPROL XL 25 MG PO (08:55)
[2025-09-09] MEDS: MUCINEX PO ×2 (08:55→20:56)
[2025-09-09] MEDS: PROTONIX 40 MG PO ×2 (08:55→20:57)
[2025-09-09] MEDS: SYNTHROID 88 MCG PO (08:55)
[2025-09-09] MEDS: MIRALAX 17 GRAMS PO (08:55)
[2025-09-09] MEDS: LASIX 20 MG PO (08:56)
--- NOTE | 2025-09-09 09:18 | W.PN.PUL.V3 ---
Today's Communication / Plan
-
Video swallow
Aspiration precautions
Continue nebulizers, mucus clearing devices
Wean oxygen
Assessment
-
Patient
Is a 69-year-old female who was admitted to the hospital on 09/04 with chief complaint of left hip pain. Patient had a hip x-ray performed on admission which was unrevealing without any evidence of fracture. Patient has a complex medical history
with prior history of Hodgkin's lymphoma treated with radiation, breast cancer, aortic stenosis s/p mechanical valve replacement on chronic Coumadin therapy as well as multiple episodes of GI bleed with unrevealing EGD and colonoscopy with concern
for small bowel AVMs. Patient has had blood transfusions in the past for anemia. Reportedly patient developed left pain on the hip area, couple of days prior to admission which has been steadily worsening. Patient was evaluated by orthopedic
surgery as outpatient and had a localized steroid injection about 10 days ago for suspected left hip greater trochanteric bursitis and gluteal tendinitis. Patient had another injection of Kenalog 40 mg along with lidocaine on 09/04. Patient
reports improved pain since. In view of recurrence of pain she presented to the emergency room.
Hospital course was complicated by increased lethargy, disorientation and altered mental status which prompted a CT head which was suggestive of a mass with edema suspicious for metastasis versus old stroke. Patient also noted to have elevated
lactate and subsequently positive blood cultures with Streptococcus pyogenes. In view of septic shock and altered mental status, patient had a rapid response event called and was transferred to ICU for further management. Bleach Supervisor consultation
was requested for further input.
Septic shock with lactic acidosis
Anemia-acute blood loss
Right pleural effusion status post thoracentesis--660 mL liter serosanguineous fluid
[place]
Metabolic encephalopathy with brain lesions metastatic versus old CVA
Pulmonary hypertension
Status post AVR
Heart failure preserved EF
Plan
Respiratory status improved but continues to complain shortness of breath
Add supplemental oxygen-was hypoxemic on room air- on 2 L
Incentive spirometry added
Acapella added
Mucus clearing devices-Mucinex added
Nebulizers
Saline nebulizers to help with secretion management
Aspiration precautions
Monitor for right pleural effusion reaccumulation-status post right thoracentesis--660 mL serosanguineous fluid-pseudo exudate
Check cultures
Infectious disease following
Antibiotics per infectious disease-ceftriaxone 2 g every 24
DAVE without evidence for vegetation
Pressors weaned
Lactate trended down
Monitor hemoglobin-stable at 13.3
Transfuse as needed
Previous EGD and colonoscopy unrevealing-? Small bowel AVMs
[place] improving
Follow renal function and electrolytes
Follow metabolic encephalopathy with brain lesions
MRI suggestive of CVA
Neurology was following
Cardiology following-correspondence reviewed
DAVE negative
Chronic Coumadin for AVR-mechanical valve
INR elevated-Coumadin held
Group 2 pulmonary hypertension
DVT prophylaxis-on Coumadin
GI prophylaxis-on pantoprazole
Nutrition
Early mobilization/physical therapy
Subjective Data
-
Date of Service:
Date of Service: September 09, 2025
Chief Complaint: Pulmonary Follow Up and Dyspnea Follow Up
Subjective:
Complains of a dry mouth, wants ice chips, no complaints of shortness of breath or chest pain
Review of Systems
General: Other (Per HPI)
Objective Data
Data Reviewed
Vital Signs / I&O:
Vital Signs
Temp Pulse Resp BP Pulse Ox
97.5 F 97 14 172/58 95
09/09/25 07:20 09/09/25 08:56 09/09/25 07:21 09/09/25 08:56 09/09/25 08:54
Intake and Output
09/08/25 09/09/25 09/10/25
06:59 06:59 06:59
Intake Total 510 / 510 420 / 420
Output Total 2200 / 2200 275 / 275
Balance -1690 / -1690 145 / 145
SaO2: 95
Nasal Cannula flow liters per minute: 2
Physical Exam
General: Respiratory Distress (n) and Comfortable
HEENT: Normocephalic, Anicteric and Moist Mucous Membranes
Cardiovascular: Regular Rhythm
Respiratory: Crackles (Few basilar), Rhonchi (Expiratory), Non-Labored Respirations, Accessory Resp Muscle Use (n) and Stridor (n)
GI: Soft and Non Distended
Neurology: Awake, Alert and No Motor Deficits
Skin: Warm, Good Color, Cyanosis (n) and Jaundice (n)
Labs/Micro/Reports
Lab Data
09/09/25 08:07
09/09/25 04:13
Laboratory Results
09/09/25
04:13
PT 70.8 H
INR > 8.0 H* D
Microbiology
09/06/25 04:18 Blood/Venous Blood Culture - Preliminary
No Growth in 72 hours- Final report to follow
09/06/25 11:09 Pleural Fluid Acid Fast Bacilli Smear - Preliminary
09/06/25 11:09 Pleural Fluid Acid Fast Bacilli Culture - Preliminary
09/05/25 14:28 Blood/Venous Blood Culture - Preliminary
No Growth in 72 hours- Final report to follow
09/06/25 11:09 Pleural Fluid Body Fluid Culture - Preliminary
No Growth After 48 Hours
09/06/25 11:09 Pleural Fluid Gram Stain - Final
09/05/25 13:59 Throat/Pharynx Streptococcus Screen (VANDANA) - Final
No Beta Hemolytic Streptococci Isolated
09/05/25 13:59 Throat/Pharynx Streptococcus Rapid Screen - Final
Rapid Strep Screen (Group A) Negative
09/05/25 13:59 Throat/Pharynx Throat Culture - Final
Usual Respiratory Tawnya
[2025-09-09] MEDS: SENOKOT-S PO (09:20)
[2025-09-09] MEDS: MEPHYTON 2.5 MG PO (09:25)
[2025-09-09] MEDS: DUONEB INH (11:17)
--- NOTE | 2025-09-09 11:23 | W.PN.ID1 ---
Date of Service
Date of Service: September 09, 2025
Today's Communication
See below.
Assessment / Plan
# Group A streptococcus bacteremia
# Suspect PNA source of Group A strep
# Dysphagia
# Leukocytosis - due to aspiration
#s/p Septic shock
# Multiple acute/subacute CVA; DAVE no source of embolic CVA
# Fever resolved
# Left hip pain/trochanteric bursitis/gluteus tendinitis s/p left hip injection x 2
# Gastroparesis, recurrent obscure coffee-ground emesis
# Hx Splenectomy
# Stage 3 breast ca (not on tx)
# Mechanical AVR
- with recent Group A strep pharyngitis
Swab pt's throat negative rapid strep, neg cx
- Repeat blood cx's x 2 negative to date
- DAVE: no vegetation
- Right pleural effusion s/p thora 660cc serosanguineous fluid; exudative, cx negative to date
- Dysphagia. Video swallow result pending
- Aspiration precaution
- Continue with ceftriaxone (d5)
- When able to take po, transition to cephalexin 500mg po tid till 09/18/25.
- Trend WBC
Chief Complaint
-: Clinical Sepsis and Bacteremia
Subjective / Review of Systems
at bedside.
c/o swallow difficulty. + cough still.
Vital Signs / Physical Exam
Vital Signs
Vital Signs
Temp Pulse Resp BP Pulse Ox
97.5 F 97 14 172/58 95
09/09/25 07:20 09/09/25 08:56 09/09/25 07:21 09/09/25 08:56 09/09/25 09:18
Physical Exam
Constitutional: Chronically Ill and Cachetic
Eyes: No Conjunctival Hemorrhage and Sclera Anicteric
Cardiovascular: S1/S2 (tachy)
Pulmonary: Rales (bases)
Gastrointestinal: Soft, Non Tender and Non Distended
Extremities: Negative Edema
Neurological: Awake
Objective Data
Lab Data
Lab Results
09/09/25 08:07
09/09/25 04:13
PT 70.8 Sec (11.4-14.6) H 09/09/25 04:13
INR > 8.0 H* D 09/09/25 04:13
APTT 53.5 Sec (23.4-35.0) H 09/08/25 04:57
Estimated Creat Clear 19 ml/min 09/09/25 04:13
Lactic Acid 1.9 mmol/L (0.7-2.0) 09/05/25 21:46
Total Bilirubin 0.7 mg/dl (0.2-1.3) 09/07/25 03:19
AST 34 U/L (14-36) 09/07/25 03:19
ALT 16 U/L (0-35) 09/07/25 03:19
Alkaline Phosphatase 103 U/L (38-126) 09/07/25 03:19
Most recent labs reviewed.
Micro Results:
09/06/25 04:18 Blood Culture - Preliminary
Blood/Venous No Growth in 72 hours- Final report to follow
09/06/25 11:09 Acid Fast Bacilli Smear - Preliminary
Pleural Fluid Acid Fast Bacilli Culture - Preliminary
09/05/25 14:28 Blood Culture - Preliminary
Blood/Venous No Growth in 72 hours- Final report to follow
09/06/25 11:09 Body Fluid Culture - Preliminary
Pleural Fluid No Growth After 48 Hours
Gram Stain - Final
09/05/25 13:59 Streptococcus Screen (VANDANA) - Final
Throat/Pharynx No Beta Hemolytic Streptococci Isolated
Streptococcus Rapid Screen - Final
Rapid Strep Screen (Group A) Negative
09/05/25 13:59 Throat Culture - Final
Throat/Pharynx Usual Respiratory Tawnya
09/04/25 02:51 Urine Culture - Final
Urine NO GROWTH
09/04/25 02:50 Blood Culture - Preliminary
Blood/Venous Streptococcus pyogenes
Gram Stain - Final
09/04/25 02:50 Blood Culture - Preliminary
Blood/Venous Streptococcus pyogenes
Gram Stain - Final
09/08/25 CXR: Small to moderate right pleural effusion with associated atelectasis and/or pneumonia, progressed. Small left pleural effusion with associated atelectasis and/or pneumonia, slightly improved. Suspect mild CHF.
09/06/25 CXR: Interval increase in opacification of the right lower lung, most likely atelectasis. Evidence for small to moderate right pleural effusion including lateral loculation. Small left pleural effusion. Parenchymal opacity within the left
lower lung, mainly medially, with differential considerations of atelectasis and/or pneumonia.
11/05/24 Brain MRI: There are small foci of acute to subacute infarct involving both occipital lobes; suspicious for a focus of acute to subacute infarct involving the choroid plexus, although can also be seen with choroid plexus xanthogranuloma.
Findings would suggest focal area of acute to subacute infarct in the right frontal lobe, superior to the region of encephalomalacia.
09/04/25 CXR: The lungs are clear.
09/04/25 CT a/P: Markedly limited CT of the abdomen and pelvis as a result of numerous factors,
09/04/[address]: At least 3 cm focus of decreased attenuation centered about the right sylvian fissure which could represent an intracranial mass with edema such as metastatic disease. Subacute to chronic infarct cannot be differentiated on this CT
without intravenous contrast. Recommend Brain MRI without and with contrast for more complete evaluation.
09/04/25 L HIP XRAY:No acute fracture or dislocation. The hip joint space is maintained. Gluteus medius calcific tendinosis.
08/17/25 outside MRI wo contrast left hip report: ' There is evidence of a tear of the distal gluteus minimus muscle and tendon at the level of the greater trochanter with evidence of peritrochanteric edema and fluid. Incidental inguinal lymph
nodes are noted bilaterally.
[2025-09-09] MEDS: STERILE WATER FOR INJECTION 20 ML IV (12:02)
[2025-09-09] MEDS: FLUSH (NSS) 1 FLUSH IV (12:02)
[2025-09-09] MEDS: ROCEPHIN 2000 MG IV (12:02)
[2025-09-09] MEDS: FLUSH (NSS) IV (12:13)
--- NOTE | 2025-09-09 15:26 | CM ---
Reviewed chart,. Pt continues on IV ABX and is now on 2LPM n/c
Plan: [facility] acute when medically stable.
--- NOTE | 2025-09-09 16:29 | PTCARENOTE ---
pt AAO x3; anxious/tearful; sl forgetful at times. NIHSS 5. JOHNSON weakly; needs much encouragement to participate in ADL's. Refused OOB to chair activity but was able to transfer to BSC with assistance. VSS. Telemetry:NSR/sinus tachy to 110's.
Maintained on nc 2 lpm- pulseox 95%, pt with (+) NAJERA; occ loose, non-productive cough. Pt suctioned with Yankauer prn for small amts clear/white secretions. Abd soft, on full liquid diet- appetite poor, pt with (+)dysphagia; frequently drools
clear /white mucus. Incont large amts urine; voided on BSC x1. Cardizem drip @ 5 mg/hr (5 ml/hr ) infusing via Lt midline site without x of infiltration. resting in bed at present. Will continue to monitor.
--- NOTE | 2025-09-09 16:34 | W.PN.CARDCBS ---
Addendum entered and electronically signed by Randall Justice MD 09/09/25 17:44:
I met with the patient and her son at bedside.
We reviewed her cardiac specific issues.
Primarily we will attempt to gain better rate control of PAF with RVRs and SSS with conversion pauses (asymptomatic)
Continue Cardizem gtt.
Increase Toprol to 50mg BID for rate control
Attempt to wean Cardizem drip
Not PPM candidate at present given coagulopathy as well as bacteremia / sepsis
Original Note:
Today's Communication / Plan
-
Continue cardizem gtt.
Will increase toprol to 50mg BID for rate control, and hopefully can d/c cardizem.
Follow INR.
Impression / Plan
-
PCP: Dr. Haynes
Cardiology: Dr. Aramis Resendez
Oncology: Dr. Amaral
Impression:
Admitted 09/04/2025 with left hip pain
TME
Septic shock requiring pressors
Group A Streptococcus bacteremia
Suspected pneumonia
Right pleural effusion
s/p right thoracentesis for 660 mL of blood tinged fluid
Dysphagia, dysarthria likely secondary to acute/subacute infarcts in bilateral occipital lobes, choroid plexus, and extension of previous right frontal lobe infarct
Left hip pain/trochanteric bursitis/gluteus tendinitis s/p left hip injection x 2 as outpatient
h/o recurrent GIB (05/02/25 until 05/05/25, readmitted 05/06/25)
Chronic warfarin OAC managed by [facility] cardiology
h/o CVA
h/o CVA 2005
h/o right MCA stroke with M2 occlusion in setting of subtherapeutic INR while off Coumadin 07/15/21
patient bridged with Lovenox prior to colonoscopy 07/10/21, but no Lovenox bridge post-colonoscopy
Mechanical AVR pediatric size 2006
Mitral regurgitation with mitral stenosis
Tricuspid regurgitation with pulmonary hypertension
h/o Hodgkin's lymphoma treated with radiation to left neck and pelvis 1973
h/o breast CA
2018 treated with B/L mastectomy, patient refused chemotherapy and radiation, but eventually agreeable to Tamoxifen
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
Recurrence of breast cancer 2021 - did not tolerate Ibrance or Ribociclib
Labile HTN
Hypothyroidism
Chronic HFpEF
CAD with 60 to 70% ostial to proximal LM stenosis, 100% [employer]GAT[employer] proximal RCA with [id number] collaterals by cardiac cath 10/28/2024
LHC 10/28/2024: Eccentric 60-70% ostial to proximal Left main, difficult to advance IVUS catheter. iFR positive at 0.76. Elevated filling pressures, normal cardiac output/index, occluded right coronary artery with brisk collater, Nonobstructive plaque
of LAD and circumflex, pulmonary artery pressure 62/26, pulmonary capillary wedge pressure is 22, right atrial pressure is 11, cardiac index is 2.5
Echo 08/26/2022: Hyperdynamic LV.� EF 70 to 75%.� Mild to moderate MS peak/mean gradient 20/7 mmHg.� Moderate to severe MR.� Well-seated mechanical AVR with peak/mean gradient 11/6 mmHg without regurgitation.� Moderate to severe TR.� Moderate
pulmonary hypertension with PAP 50 to 55 mmHg.
Echo 02/10/2023: EF 60 to 65%.� Moderate mitral stenosis mean gradient 11 with severe MR.� Well-seated mechanical AVR with peak/mean gradient 15/8 mmHg, mild to moderate TR, mild pulmonary hypertension with PAP 45 to 48 mmHg.
Echo 11/19/2023: EF 70-75%, moderate MS with peak/mean gradients 15/8 mmHg, moderate MR, mechanical prosthetic AVR with peak/mean gradients 16/9 mmHg, trace AR, moderate TR, estimated PAP 30-35 mmHg
Echo 10/25/24: EF 55-60%, moderate mitral stenosis with mean gradient of 8 mmHg, mild to moderate MR, mechanical AVR with mean gradient of 10, no AI, mild to moderate TR with PA pressure 40-45
Echo 09/05/2025: EF 55 to 60%. Mild LVH. Mildly dilated LA and RA. Mild to moderate mitral regurgitation. Well-seated mechanical aortic valve peak/mean gradient 7/4 mmHg. No AI. Moderate TR with PAP 39 mmHg.
MRI brain 09/05/25: There is no MR evidence for intracranial metastatic disease. There are small foci of acute to subacute infarct involving both occipital lobes as described. Focal region of abnormal restricted diffusion involving the choroid
plexus within the atria of the right lateral ventricle. Given the findings in the occipital lobe, this is suspicious for a focus of acute to subacute infarct involving the choroid plexus, although can also be seen with choroid plexus
xanthogranuloma. Focal area of encephalomalacia involving the inferior right frontal and superior right temporal lobe, in the region of the insula. There is a region of abnormal diffusion extending superiorly and anteriorly to the region of
encephalomalacia, and signal abnormality extends appears increased compared to previous MRI in June 2021. Findings would suggest focal area of acute to subacute infarct in the right frontal lobe, superior to the region of encephalomalacia.
-Carotid ultrasound 09/05/25: Minimal calcified carotid bulb plaque on each side, measurements suggestive of less than 50% stenosis on each side.
Plan:
-Admitted 09/04/2025 with left hip pain then developed acute altered mental status and slurred speech and was found to have septic shock requiring pressors which have been weaned.
-Continues on IV abx for group A strep bacteremia.
-Found to have new acute to subacute strokes involving posterior circulation and in bilateral occipital lobe suggestive of embolic source on MRI.
-DAVE 09/07/25 with no evidence of valvular vegetation to suggest infective endocarditis. No evidence of left atrial appendage thrombus.
-Noted to go into rapid atrial fibrillation earlier this admission. On diltiazem drip. Continues on oral Toprol-XL 25 mg twice daily. Heart rates improved, but still remains somewhat elevated.
-She did have ~4 second pause noted on telemetry at 5 AM 09/09/2025, but no further pauses noted.
-Will increase Toprol to 50mg BID and follow closely on telemetry for now.
-Patient has history of pediatric mechanical aortic valve maintained on Coumadin as outpatient with goal INR 2.5-3.0.
-INR >8 today. warfarin on hold. Follow INR and resume as able.
-Given INR>8, bacteremia, no plan for PPM at this time, but will follow.
Progress Note - [employer]
Subjective
Date of Service: September 09, 2025
Continues w/ pain.
Objective
Labs:
09/09/25 08:07
09/09/25 04:13
Labs
Hgb 13.1 g/dL (12.0-16.0) 09/09/25 08:07
Hct 38.6 % (37.0-47.0) 09/09/25 08:07
Plt Count 192 10^3/uL (130-400) 09/09/25 08:07
PT 70.8 Sec (11.4-14.6) H 09/09/25 04:13
INR > 8.0 H* D 09/09/25 04:13
APTT 53.5 Sec (23.4-35.0) H 09/08/25 04:57
Sodium 142 mmol/L (135-145) 09/09/25 04:13
Potassium 3.8 mmol/L (3.5-5.1) 09/09/25 04:13
BUN 83 mg/dl (7-17) H 09/09/25 04:13
Creatinine 1.6 mg/dL (0.6-1.0) H 09/09/25 04:13
Glucose 179 mg/dl (70-99) H 09/09/25 04:13
Troponins
09/08/25
21:19
Troponin I 1.050 H*
Vital Signs and I&O:
Vital Signs
Temp Pulse Resp BP Pulse Ox
97.8 F 123 20 172/78 95
09/09/25 15:53 09/09/25 15:53 09/09/25 15:53 09/09/25 15:53 09/09/25 16:28
Vital Signs
Temp Pulse Resp BP Pulse Ox
97.8 F 123 20 172/78 95
09/09/25 15:53 09/09/25 15:53 09/09/25 15:53 09/09/25 15:53 09/09/25 16:28
Intake & Output
09/07/25 09/08/25 09/09/25 09/10/25
06:59 06:59 06:59 06:59
Intake Total 630 / 630 510 / 510 420 / 420
Output Total 2525 / 2975 2200 / 2200 275 / 275
Balance -1895 / -2345 -1690 / -1690 145 / 145
Physical Exam
Physical Exam
Gen: NAD, AA, frail appearing
HEENT: NC/AT, sclera anicteric
CV: irreg, NL s1/s2
Lungs: CTAB on RA
Ext: No LE edema
Skin: Warm, dry
--- NOTE | 2025-09-09 16:37 | PTOTSP ---
Videofluoroscopic swallow study
Patient presents with at least moderate oral and moderate-severe pharyngeal dysphagia for consistencies assessed. Etiology is suspected to be new stroke with baseline comorbidities (prior CVA and hx of radiation to head/neck to treat lymphoma.)
Swallowing function is worse compared to minimal pharyngeal dysphagia noted on video swallow study in 2023.
Risk for aspiration is elevated. Risk for aspiration complications are elevated given medical comorbidities and frailty.
Recommend:
1. Goals of care discussions re: nutrition/hydration. Options include: 1) continue full liquid diet with thin liquids understanding risks/complications of possible aspiration vs 2) NPO with non-oral means though this does not eliminate risk of
bottom up aspiration vs 3) combination of oral diet and non-oral means for supplemental nutrition
2. Strategies: small sips, slow rate, multiple swallows, intermittent cough/swallow
3. Non-oral medications
4. Dysphagia tx at the acute care level for education, tx.
--- NOTE | 2025-09-09 17:30 | CON.MD ---
Addendum entered and electronically signed by Patrick Neely MD 09/09/25 19:15:
A total of 80 minutes were spent with the patient preparing for the evaluation, obtaining history, performing examination and evaluation, counseling, data review, case management, care coordination, medical orderly, and EMR documentation.
Original Note:
Documented by User: Chinyere Walker PA-C 09/08/25 19:40
Consultation - Medical
-
Referring Provider:�Dr. Richardson Hawthorne
Chief Complaint:�Sepsis and bacteremia
�
History of Present Illness: Patient is a�69-year-old female with PMH of (history of Hodgkin's lymphoma treated with radiation, breast cancers/p bilateral mastectomy with recurrent breast cancer, aortic stenosis s/p mechanical valve replacement on
chronic Coumadin therapy as well as multiple episodes of GI bleed with unrevealing EGD and colonoscopy with concern for small bowel AVMs) who was admitted to the hospital on 09/04 for complaint of left hip pain. Hip x-ray on admission without any
evidence of fracture. Couple of days prior to admission, patient developed left hip pain. She was evaluated outpatient by orthopedic and had a localized steroid injection 10 days ago for suspected left hip greater trochanteric bursitis and gluteal
tendinitis. She received another injection of Kenalog 40 mg with lidocaine on 09/04 with reported improvement of pain. With recurrence of pain, she presented to the hospital.
Hospital course was complicated by increased lethargy, disorientation and altered mental status which prompted a CT head which was suggestive of a mass with edema suspicious for metastasis versus old stroke. Patient also noted to have septic shock
from Group A streptococcus bacteremia with bacteremia/hypotension requiring pressor.
09/04�blood culture positive x 2 Group A streptococcus bacteremia , rapid strep and throat culture�negative.
09/05�blood culture�NGTD, repeat blood culture 09/06�NGTD continue Rocephin.
09/05-echo�compared to prior transthoracic echocardiogram study from 07/25/2004/08/2025 no significant changes are seen.
In view of septic shock and altered mental status, patient had a rapid response event and was transferred to ICU for further management.-
Seen by neurologist for abrupt change in mental status, most likely due to toxic metabolic encephalopathy, worsening speech probably secondary to recurrent acute ischemic stroke in the setting of subtherapeutic INR and patient with prior stroke in
2020.
MRI of brain showed posterior circulation areas of ischemia which are suggestive of embolic stroke in bilateral occipital lobes. Recommended anticoagulation as the risk of hemorrhagic conversion of the exceedingly small posterior lesion is
unlikely. Would avoid boluses of heparin IV..
09/06�right pleural effusion�status post thoracentesis� yielding 660 mL pinkish fluid.
09/07�TTE -negative for vegetation. No significant change compared to 07/25/25 TTE, . Weaned off Levophed.
Nausea and Vomiting- Coffee Ground Emesis vs Bilious Emesis
-Warfarin was on hold at the admission because of possible GI Bleeding exacerbated by Warfarin
-Suspect previous coffee ground material secondary to bilious emesis related to sepsis and known gastroparesis
-Hx of GIB with recent scopes in April. 09/04 NGT placed to suction w/ relief symptoms- Patient had NG tube which was pulled 09/06/2025 with no significant finding of coffee-ground emesis
-CT abd/pelvis w/o contrast limited study noted, possible gastric outlet obstruction vs gastroparesis
-Hb 8.7, received 1PRBC. transfuse if Hgb<8
Patient with poor appetite since last stroke. NPO this afternoon for video swallow test tomorrow. Patient seen at bedside, lethargic, keeping eyes closed except when prompted to open them. Responds to verbal cues.
�
Past Medical History:�Hodgkin's lymphoma treated with radiation, breast cancer, aortic stenosis s/p mechanical valve replacement on chronic Coumadin therapy as well as multiple episodes of GI bleed with unrevealing EGD and colonoscopy with concern
for small bowel AVMs. Patient has had blood transfusions in the past for anemia.
Procedure History:�EGD and colonoscopy, bilateral mastectomy
Family History:�Brother-prostate cancer, HTN
�
Social History:�
Functional Level Premorbidly:�Independent with all activities�
Functional Level Currently:�Bed mobility�mod assist, transfer�min assist x 2, was able to take steps to the chair with rolling walker and min assist of 2 for safety and line management, lower extremity care�dependent, grooming�min assist, toilet
transfer�min assist,
�
Tobacco:�Denies�
Alcohol:�occasionally�
Drug use:�Denies�
�
Lives with:�Spouse
24-hour assistance available:�
Number of floors:�Multilevel
# steps to enter:�1
# steps to second floor: FF
Potential First floor set up:�No
Driving:�Yes
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
�
�
Allergies:�
Allergy/AdvReac Type Severity Reaction Status Date / Time
palbociclib (From Ibrance) Allergy Tongue Verified 09/04/25 00:10
Swelling
Penicillins Allergy throat Verified 09/04/25 00:10
swelling-
tolertates
amoxicillin
tramadol Allergy throat Verified 09/04/25 00:10
swelling
�
Review of Systems:�
Constitutional: (x) abNormal _fatigue, lethargic
Eye: (x) Normal _
Ear/Nose/Throat: (x) Normal _
Respiratory: (x) Normal _
Cardiovascular: (x) Normal _
Gastrointestinal: (x) Normal _
Genitourinary: (x) abNormal _foley
Musculoskeletal: (x) abNormal _left hip pain
Integumentary: (x) Normal _
Neurologic: (x) abNormal _stroke,
Psychiatric: (x) abNormal _cognitive deficits,
Endocrine: (x) Normal _
Hematologic/Lymphatic: (x) abNormal _breast cancer
Allergic/Immunologic: (x) Normal _
�
Medications:�
Active Current Visit Medication List
Category Date Time Status
Acetaminophen [Tylenol] Med 09/04/25 18:09 Active
650 mg PO Q4HPRN PRN
Artificial Tears (Pf) [Refresh Eye Drops (Pf)] Med 09/04/25 07:08 Active
1 drops BOTH EYES QIDPRN PRN
Benzocaine/Menthol [Anesthetic Lozenge] Med 09/05/25 23:40 Active
1 lozenge PO Q4HPRN PRN
Budesonide [Pulmicort] Med 09/08/25 20:00 Active
0.5 mg INH R BID
CefTRIAXone [Rocephin] Med 09/05/25 12:00 Active
2,000 mg IV Q24H
Docusate W/Senna [Senokot-S] Med 09/08/25 10:00 Active
1 tablet PO BID
Flush (0.9% Sodium Chloride) [Flush (Nss)] Med 09/04/25 08:00 Active
See Dose Instructions IV PER PROTOCOL
Flush (0.9% Sodium Chloride) [Flush (Nss)] Med 09/05/25 12:00 Active
See Dose Instructions IV Q24H
Furosemide [Lasix] Med 09/08/25 08:00 Active
20 mg PO DAILY
Guaifenesin [Mucinex] Med 09/08/25 20:00 Active
600 mg PO Q12
HYDROmorphone [Dilaudid] Med 09/06/25 04:11 Active
0.25 mg IV Q4HPRN PRN
Ipratropium/Albuterol Sulfate [Duoneb] Med 09/08/25 12:00 Active
3 ml INH R QID
Levothyroxine [Synthroid] Med 09/04/25 07:00 Active
88 mcg PO DAILY AT 0700
Lorazepam [Ativan] Med 09/06/25 18:59 Active
0.5 mg PO BIDPRN PRN
Metoprolol Xl [Toprol Xl] Med 09/07/25 08:00 Active
25 mg PO BID
Ondansetron Injectable [Zofran] Med 09/04/25 06:59 Active
4 mg IV Q6HPRN PRN
Pantoprazole [Protonix] Med 09/07/25 08:00 Active
40 mg PO BID
Polyethylene Glycol Powder [Miralax] Med 09/08/25 10:00 Active
17 grams PO DAILY
Prochlorperazine [Compazine] Med 09/04/25 17:03 Active
5 mg IV Q6HPRN PRN
Sodium Chloride 3% INH [Sodium Chloride 3% For Med 09/08/25 20:00 Active
Inhalation]
1 vial INH R BID
Sterile Water [Sterile Water For Injection] Med 09/05/25 12:00 Active
20 ml IV Q24H
Warfarin [Coumadin] Med 09/06/25 18:00 Hold
2.5 mg PO QPM
�
Vitals:�
Temp Pulse Resp BP Pulse Ox
98.2 F 90 20 108/47 94
09/08/25 11:00 09/08/25 11:00 09/08/25 11:00 09/08/25 11:00 09/08/25 11:48
Height 4 ft 10 in
Actual Weight 37.9 kg
Body Mass Index (BMI) 17.5
�
Physical Exam:�
General Appearance/Observation: Thin individual in no apparent distress, but lethargic.�
Pain/Comfort Assessment: Denies�
Mood/Affect: Flat affect, tired
�
Integumentary/Operative Site:�
�� Pressure Ulcer Evaluation: absent over heels.�
��
�� Other Type of Wound: absent�
�
Eyes: Conjunctiva/Lids: normal���� Pupils: pupils equal round and reactive to light and Accommodation�
Ears/Nose/Throat: oral mucosa moist,� throat clear.������������ Lips/Teeth/Gums: normal�
Neck: No muscle spasm or tenderness�
Cardiovascular: Heart: regular, no murmur�
Pulses: dorsalis pedis 2+ bilaterally�
Respiratory: Respiratory Effort/Chest Expansion: normal������� Auscultation: diminished BS,Clear to auscultation bilaterally�
Gastrointestinal: abdomen not tender, no distension, normal abdominal bowel sounds�
Genitourinary: No Church�
Extremities:�Edema: None�Cyanosis: None�Trophic�changes: None
�
Neurology Exam:
Orientation: lethargic, Oriented to self, month, not date, Place�
Memory: Intact for basic information, impaired for more complex information
Comprehension: Slow processing, needs repeating
Two step command: Slow processing, needs cueing, repeating
Naming: Intact
Cranial Nerves:
�� CNII:�Pupillary light reflex: Intact����Visual Field: Intact
�� CN III, IV, : Extraocular muscles: Intact, but slow to track to the left and down�
�� CN V:�Facial Sensation�at�Forehead: Intact,�Maxilla: Intact,�Mandible: Intact
�� CN VII:�Facial movement: Left facial drooping
�� CN VIII:�Hearing: Normal
�� CN IX/X:�Speech & swallow: dysarthria, hypophonia, wet voice�Position of Uvula: Midline
�� CN XI:�Shoulder shrug: Symmetric
�� CN XII:�Tongue protrusion: Midline
Sensory:
�� Light touch: Intact in bilateral upper and lower extremities
��
Reflexes:
�� Biceps: 2+ bilaterally
�� Brachioradialis: 2+ bilaterally
�� Triceps: 2+ bilaterally
�� Patellar: 2+ bilaterally
�� Achilles: 2+ bilaterally
�� Babinski: Down going bilaterally
�� Clonus: None
�� Amanda: Negative bilaterally�
Cerebellar: Dysmetria/Ataxia: None, but quicker to perform on the right than the left�
Musculoskeletal:
Motor: (Manual muscle scale 0-5)�
Muscle SA EF WE EE FF FA HF KE DF EHL PF
Right� 5 5 5 5 4 4 4 5 5 5
Left 5 5 5 5 4 4 4 4 4 5
�
Tone: Normal in all extremities�
Range of Motion: Passively within normal limits in all �
�
Lab Results
Labs
WBC 5.5 10^3/uL (4.8-10.8) 09/08/25 04:57
RBC 4.78 10^6/uL (4.20-5.40) 09/08/25 04:57
Hgb 13.3 g/dL (12.0-16.0) 09/08/25 04:57
Hct 41.0 % (37.0-47.0) 09/08/25 04:57
MCV 85.8 fL (81.0-99.0) 09/08/25 04:57
MCH 27.8 pg (27.0-31.0) 09/08/25 04:57
MCHC 32.4 g/dL (33.0-37.0) L 09/08/25 04:57
RDW 19.4 % (11.5-14.5) H 09/08/25 04:57
Plt Count 147 10^3/uL (130-400) 09/08/25 04:57
MPV 11.4 fL (7.4-10.4) H 09/08/25 04:57
Abs Immat Gran (auto) 0.4 10^3/uL (0-0.05) H 09/04/25 00:03
Absolute Neuts (auto) 17.9 10^3/uL (1.4-6.5) H 09/04/25 00:03
Absolute Lymphs (auto) 0.3 10^3/uL (1.2-3.4) L 09/04/25 00:03
Absolute Monos (auto) 0.3 10^3/uL (0.1-0.6) 09/04/25 00:03
Absolute Eos (auto) 0.1 10^3/uL (0-0.7) 09/04/25 00:03
Absolute Basos (auto) 0.1 10^3/uL (0-0.2) 09/04/25 00:03
Immature Gran % 2.0 % (0-0.5) H 09/04/25 00:03
Neutrophils % 94.4 % (42.2-75.2) H 09/04/25 00:03
Lymphocytes % 1.5 % (20.5-51.1) L 09/04/25 00:03
Monocytes % 1.3 % (1.7-9.3) L 09/04/25 00:03
Eosinophils % 0.3 % (0-6) 09/04/25 00:03
Basophils % 0.5 % (0-2) 09/04/25 00:03
Nucleated RBC % 0.2 % 09/04/25 00:03
PT 50.6 Sec (11.4-14.6) H 09/08/25 04:57
INR 5.60 H* D 09/08/25 04:57
APTT 53.5 Sec (23.4-35.0) H 09/08/25 04:57
VBG pH 7.30 (7.32-7.43) L 09/06/25 04:08
VBG pCO2 34 mmHg (35-48) L 09/06/25 04:08
VBG pO2 125 mmHg (30-50) H 09/06/25 04:08
VBG HCO3 16.7 mmol/L (22-27) L 09/06/25 04:08
VBG O2 Sat (Tamera) 100.0 % 09/06/25 04:08
VBG Base Excess -8.8 mmol/L (-4 to +4) 09/06/25 04:08
VBG O2 Therapy Room air 09/06/25 04:08
Sodium 142 mmol/L (135-145) 09/08/25 04:57
Potassium 4.1 mmol/L (3.5-5.1) 09/08/25 04:57
Chloride 110 mmol/L (98-107) H 09/08/25 04:57
Carbon Dioxide 18 mmol/L (22-30) L 09/08/25 04:57
BUN 65 mg/dl (7-17) H 09/08/25 04:57
Creatinine 1.6 mg/dL (0.6-1.0) H 09/08/25 04:57
Estimated Creat Clear 19 ml/min 09/08/25 04:57
eGFR 34.27 09/08/25 04:57
Glucose 100 mg/dl (70-99) H 09/08/25 04:57
Lactic Acid 1.9 mmol/L (0.7-2.0) 09/05/25 21:46
Calcium 8.9 mg/dl (8.4-10.2) 09/08/25 04:57
Ionized Calcium 0.92 mMOL/L (1.15-1.33) L 09/05/25 14:28
Phosphorus 2.9 mg/dl (2.5-4.5) 09/05/25 06:07
Magnesium 2.0 mg/dl (1.6-2.3) 09/08/25 04:57
TIBC Cancelled 09/05/25 06:07
% Saturation Cancelled 09/05/25 06:07
Total Bilirubin 0.7 mg/dl (0.2-1.3) 09/07/25 03:19
Direct Bilirubin 0.4 mg/dl (0.0-0.4) 09/05/25 14:28
AST 34 U/L (14-36) 09/07/25 03:19
ALT 16 U/L (0-35) 09/07/25 03:19
Alkaline Phosphatase 103 U/L (38-126) 09/07/25 03:19
Lactate Dehydrogenase 263 U/L (120-246) H 09/06/25 04:08
Troponin I 0.025 ng/ml 09/04/25 02:51
Cwj-Z-Rfcdthopcex Pept > 95315 pg/ml 09/07/25 03:19
Total Protein 6.6 g/dl (6.3-8.2) 09/07/25 03:19
Albumin 2.6 g/dl (3.5-5.0) L 09/07/25 03:19
Triglycerides 98 mg/dl (10-149) 09/05/25 06:07
Total Cholesterol 61 mg/dl (50-199) 09/05/25 06:07
LDL Cholesterol, Calc 25 mg/dl 09/05/25 06:07
VLDL Cholesterol, Calc 19 mg/dl (0-30) 09/05/25 06:07
HDL Cholesterol 17 mg/dl 09/05/25 06:07
Urine Color Yellow 09/04/25 02:51
Urine Clarity Clear (Clear) 09/04/25 02:51
Urine pH 5.0 (5.0-9.0) 09/04/25 02:51
Ur Specific [place] 1.015 (<1.030) 09/04/25 02:51
Urine Ketones Negative (Negative) 09/04/25 02:51
Ur Occult Blood Reflex Negative (Negative) 09/04/25 02:51
Urine Nitrite (Reflex) Negative (Negative) 09/04/25 02:51
Urine Bilirubin Negative (Negative) 09/04/25 02:51
Urine Urobilinogen Negative (Neg - 1+) 09/04/25 02:51
Leukocyte Esterase Rfl Negative (Negative) 09/04/25 02:51
Urine RBC 0-2 /HPF (0-2) 09/04/25 02:51
Urine WBC (Reflex) 3-5 /HPF (0-5) 09/04/25 02:51
Ur Squamous Epith Cells 6-10 /LPF (Few) 09/04/25 02:51
Amorphous Crystals Seen 09/04/25 02:51
Urine Bacteria (Reflex) Moderate (Negative) A 09/04/25 02:51
Urine Glucose Negative (Negative) 09/04/25 02:51
Urine Albumin (Reflex) 2+ (Neg - Trace) A 09/04/25 02:51
Fluid pH Cancelled 09/06/25 11:09
Fluid WBC 693 /CUMM 09/06/25 11:09
Fluid Mononuclear Cell 46.2 % 09/06/25 11:09
Fl Polymorphonucl Cell 53.8 % 09/06/25 11:09
Fluid Other Cells Not Reportable 09/06/25 11:09
Fluid Diff Path Review Not Reportable 09/06/25 11:09
Fluid Glucose 87 mg/dl 09/06/25 11:09
Fluid Total Protein 4.0 g/dl 09/06/25 11:09
Fluid LDH 136 U/L 09/06/25 11:09
POC Glucose 123 mg/dl (70-99) H 09/04/25 17:56
Blood Type O POS 09/04/25 23:34
Antibody Screen Negative (Negative) 09/04/25 23:34
Crossmatch IS Only See Detail 09/04/25 23:34
�
Diagnostic Results:�as per HPI�
�09/06/25 CXR: Interval increase in opacification of the right lower lung, most likely atelectasis. Evidence for small to moderate right pleural effusion including lateral loculation. Small left pleural effusion. Parenchymal opacity within the left
lower lung, mainly medially, with differential considerations of atelectasis and/or pneumonia.
11/05/24 Brain MRI: There are small foci of acute to subacute infarct involving both occipital lobes; suspicious for a focus of acute to subacute infarct involving the choroid plexus, although can also be seen with choroid plexus xanthogranuloma.
Findings would suggest focal area of acute to subacute infarct in the right frontal lobe, superior to the region of encephalomalacia.
09/04/25 CXR: The lungs are clear.
09/04/25 CT a/P: Markedly limited CT of the abdomen and pelvis as a result of numerous factors,
09/04/[address]: At least 3 cm focus of decreased attenuation centered about the right sylvian fissure which could represent an intracranial mass with edema such as metastatic disease. Subacute to chronic infarct cannot be differentiated on this CT
without intravenous contrast. Recommend Brain MRI without and with contrast for more complete evaluation.
09/04/25 L HIP XRAY:No acute fracture or dislocation. The hip joint space is maintained. Gluteus medius calcific tendinosis.
08/17/25 outside MRI wo contrast left hip report: ' There is evidence of a tear of the distal gluteus minimus muscle and tendon at the level of the greater trochanter with evidence of peritrochanteric edema and fluid. Incidental inguinal lymph
nodes are noted bilaterally.
Assessment: 69-year-old female with recurrent breast cancer sided postmastectomy and chemo presented with left hip pain post steroid injection. Developed abrupt onset dysphagia
�
Plan�
PM&R�PT/OT to increase independence with ADLs, improve balance, coordination, endurance, strength, mobility, community reintegration, decreased burden of care on others and family education.�
�
CVA: Secondary prophylaxis resume warfarin when able. Currently on hold due to elevated INR, statin, and blood pressure control (SBP less than 180 and diastolic less than 100 to participate with therapy for ischemic stroke). Continue to monitor
neurologic status.�
Dysphagia: speech evaluation, oral care protocol, aspiration precautions.�NGT out. Video swallow testing scheduled. Advance diet as tolerated.�
Dysarthria: speech evaluation�
Sepsis/bacteremia: cont antibiotic
HTN: metoprolol, monitor closely�
HLD: Statin�
Right Pleural Effusion: s/p thoracentesis. Acid Fast Bacilli and Fluid Cx , cytology- pending
Coronary artery disease�: Aspirin, statin, beta-angel luis
CHF: lasix 20mg daily, BNP 27,000
Mechanical Aortic Valve: Coumadin on hold due to elevated INR >5
Recurrent Breast cancer: s/p bilateral mastectomy. on no treatment.�
Hypothyroidism: levothyroxine�
Psych: Monitor mood, adjust medications as needed.�
Skin: monitor for pressure sores/rashes/lesions.�
Pain: acetaminophen as needed, Dilaudid, �Lorazepam
Bowel: t/c Colace and Senna, PRN bisacodyl.�
Bladder: Time void, PVRs, PRN straight cath.�Church
GI Prophylaxis: Pantoprazole�
DVT Prophylaxis:
Pulmonary: Incentive spirometry�
Safety: Continue to reinforce assistance with all transfers.�
Code Status:� DNR�
Dispo�(date/plan/equipment needs): Home with family care.� Social history reviewed.�
�
Functional and Medical Goals:�Modified Independent with ADL�s, ambulation, transfers�
�
Discharge Destination:� Patient with complex medical history and with lethargy may not be able to tolerate 3 hours of intense therapy daily at her current base. She may benefit more from a subacute facility that can allow her time to heal, and rest
as needed while getting PT/OT and speech for rehabilitation.
�
Thank you for allowing me to care for your patient. Please contact me with any questions or concerns.

Documented by User: Patrick Neely MD 09/09/25 19:14
Consultation - Medical
-
Referring Provider:�Dr. Richardson Hawthorne
Chief Complaint:�Sepsis and bacteremia
�
History of Present Illness: Patient is a�69-year-old Right handed female with PMH of (history of Hodgkin's lymphoma treated with radiation, breast cancers/p bilateral mastectomy with recurrent breast cancer, aortic stenosis s/p mechanical valve
replacement on chronic Coumadin therapy as well as multiple episodes of GI bleed with unrevealing EGD and colonoscopy with concern for small bowel AVMs) who was admitted to the hospital on 09/04 for complaint of left hip pain. Hip x-ray on admission
without any evidence of fracture. Couple of days prior to admission, patient developed left hip pain. She was evaluated outpatient by orthopedic and had a localized steroid injection 10 days ago for suspected left hip greater trochanteric bursitis
and gluteal tendinitis. She received another injection of Kenalog 40 mg with lidocaine on 09/04 with reported improvement of pain. With recurrence of pain, she presented to the hospital.
Hospital course was complicated by increased lethargy, disorientation and altered mental status which prompted a CT head which was suggestive of a mass with edema suspicious for metastasis versus old stroke. Patient also noted to have septic shock
from Group A streptococcus bacteremia with bacteremia/hypotension requiring pressor.
09/04�blood culture positive x 2 Group A streptococcus bacteremia , rapid strep and throat culture�negative.
09/05�blood culture�NGTD, repeat blood culture 09/06�NGTD continue Rocephin.
09/05-echo�compared to prior transthoracic echocardiogram study from 07/25/2004/08/2025 no significant changes are seen.
In view of septic shock and altered mental status, patient had a rapid response event and was transferred to ICU for further management.-
Seen by neurologist for abrupt change in mental status, most likely due to toxic metabolic encephalopathy, worsening speech probably secondary to recurrent acute ischemic stroke in the setting of subtherapeutic INR and patient with prior stroke in
2020.
MRI of brain showed posterior circulation areas of ischemia which are suggestive of embolic stroke in bilateral occipital lobes. Recommended anticoagulation as the risk of hemorrhagic conversion of the exceedingly small posterior lesion is
unlikely. Would avoid boluses of heparin IV..
09/06�right pleural effusion�status post thoracentesis� yielding 660 mL pinkish fluid.
09/07�TTE -negative for vegetation. No significant change compared to 07/25/25 TTE, . Weaned off Levophed.
Nausea and Vomiting- Coffee Ground Emesis vs Bilious Emesis
-Warfarin was on hold at the admission because of possible GI Bleeding exacerbated by Warfarin
-Suspect previous coffee ground material secondary to bilious emesis related to sepsis and known gastroparesis
-Hx of GIB with recent scopes in April. 09/04 NGT placed to suction w/ relief symptoms- Patient had NG tube which was pulled 09/06/2025 with no significant finding of coffee-ground emesis
-CT abd/pelvis w/o contrast limited study noted, possible gastric outlet obstruction vs gastroparesis
-Hb 8.7, received 1PRBC. transfuse if Hgb<8
Patient with poor appetite since last stroke. NPO for video swallow test 09/09 with risk of patient choking if solids were not thoroughly masticated. Options were to continue full liquid diet with thin liquids understanding risk and complication of
possible aspiration versus n.p.o. with nonoral means that this does not limit the risk of bottom up aspiration or 3 combination of oral diet and nonoral means for supplemental nutrition. Patient with signs of physical frustration as she wants to
eat. Patient's spouse indicated desire to start a full liquid diet understanding aspiration risks and complications. Further goals of care discussion. Also with 09/09 A-fib with RVR and sick sinus syndrome on Cardizem drip. Not a permanent
pacemaker candidate at present given coagulopathy as well as bacteremia and sepsis. Attempt to wean off Cardizem.
�
Past Medical History:�Hodgkin's lymphoma treated with radiation, breast cancer, aortic stenosis s/p mechanical valve replacement on chronic Coumadin therapy as well as multiple episodes of GI bleed with unrevealing EGD and colonoscopy with concern
for small bowel AVMs. Patient has had blood transfusions in the past for anemia.
Procedure History:�EGD and colonoscopy, bilateral mastectomy
Family History:�Brother-prostate cancer, HTN
�
Social History:�
Functional Level Premorbidly:�Independent with all activities�
Functional Level Currently:�Bed mobility�mod assist, transfer�min assist x 2, was able to take steps to the chair with rolling walker and min assist of 2 for safety and line management, lower extremity care�dependent, grooming�min assist, toilet
transfer�min assist.
�
Tobacco:�Denies�
Alcohol:�occasionally�
Drug use:�Denies�
�
Lives with:�Spouse
24-hour assistance available:�Yes
Number of floors:�Multilevel
# steps to enter:�1
# steps to second floor: FF
Potential First floor set up:�No
Driving:�Yes
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
�
�
Allergies:�
Allergy/AdvReac Type Severity Reaction Status Date / Time
palbociclib (From Ibrance) Allergy Tongue Verified 09/04/25 00:10
Swelling
Penicillins Allergy throat Verified 09/04/25 00:10
swelling-
tolertates
amoxicillin
tramadol Allergy throat Verified 09/04/25 00:10
swelling
�
Review of Systems:�
Constitutional: (x) abNormal _fatigue, lethargic
Eye: (x) Normal _
Ear/Nose/Throat: (x) abNormal _ swallow dysfunction.
Respiratory: (x) Normal _
Cardiovascular: (x) Normal _
Gastrointestinal: (x) Normal _
Genitourinary: (x) abNormal _foley
Musculoskeletal: (x) abNormal _left hip pain
Integumentary: (x) Normal _
Neurologic: (x) abNormal _stroke,
Psychiatric: (x) abNormal _cognitive deficits,
Endocrine: (x) Normal _
Hematologic/Lymphatic: (x) abNormal _breast cancer
Allergic/Immunologic: (x) Normal _
�
Medications:�
Active Current Visit Medication List
Category Date Time Status
Acetaminophen [Tylenol] Med 09/04/25 18:09 Active
650 mg PO Q4HPRN PRN
Artificial Tears (Pf) [Refresh Eye Drops (Pf)] Med 09/04/25 07:08 Active
1 drops BOTH EYES QIDPRN PRN
Benzocaine/Menthol [Anesthetic Lozenge] Med 09/05/25 23:40 Active
1 lozenge PO Q4HPRN PRN
Budesonide [Pulmicort] Med 09/08/25 20:00 Active
0.5 mg INH R BID
CefTRIAXone [Rocephin] Med 09/05/25 12:00 Active
2,000 mg IV Q24H
Docusate W/Senna [Senokot-S] Med 09/08/25 10:00 Active
1 tablet PO BID
Flush (0.9% Sodium Chloride) [Flush (Nss)] Med 09/04/25 08:00 Active
See Dose Instructions IV PER PROTOCOL
Flush (0.9% Sodium Chloride) [Flush (Nss)] Med 09/05/25 12:00 Active
See Dose Instructions IV Q24H
Furosemide [Lasix] Med 09/08/25 08:00 Active
20 mg PO DAILY
Guaifenesin [Mucinex] Med 09/08/25 20:00 Active
600 mg PO Q12
HYDROmorphone [Dilaudid] Med 09/06/25 04:11 Active
0.25 mg IV Q4HPRN PRN
Ipratropium/Albuterol Sulfate [Duoneb] Med 09/08/25 12:00 Active
3 ml INH R QID
Levothyroxine [Synthroid] Med 09/04/25 07:00 Active
88 mcg PO DAILY AT 0700
Lorazepam [Ativan] Med 09/06/25 18:59 Active
0.5 mg PO BIDPRN PRN
Metoprolol Xl [Toprol Xl] Med 09/07/25 08:00 Active
25 mg PO BID
Ondansetron Injectable [Zofran] Med 09/04/25 06:59 Active
4 mg IV Q6HPRN PRN
Pantoprazole [Protonix] Med 09/07/25 08:00 Active
40 mg PO BID
Polyethylene Glycol Powder [Miralax] Med 09/08/25 10:00 Active
17 grams PO DAILY
Prochlorperazine [Compazine] Med 09/04/25 17:03 Active
5 mg IV Q6HPRN PRN
Sodium Chloride 3% INH [Sodium Chloride 3% For Med 09/08/25 20:00 Active
Inhalation]
1 vial INH R BID
Sterile Water [Sterile Water For Injection] Med 09/05/25 12:00 Active
20 ml IV Q24H
Warfarin [Coumadin] Med 09/06/25 18:00 Hold
2.5 mg PO QPM
�
Vitals:�
Laboratory Data
09/09/25 08:07
09/09/25 04:13
PT 70.8 Sec (11.4-14.6) H 09/09/25 04:13
INR > 8.0 H* D 09/09/25 04:13
APTT 53.5 Sec (23.4-35.0) H 09/08/25 04:57
Total Bilirubin 0.7 mg/dl (0.2-1.3) 09/07/25 03:19
Direct Bilirubin 0.4 mg/dl (0.0-0.4) 09/05/25 14:28
AST 34 U/L (14-36) 09/07/25 03:19
ALT 16 U/L (0-35) 09/07/25 03:19
Alkaline Phosphatase 103 U/L (38-126) 09/07/25 03:19
Total Protein 6.6 g/dl (6.3-8.2) 09/07/25 03:19
Albumin 2.6 g/dl (3.5-5.0) L 09/07/25 03:19
�
Physical Exam:�
General Appearance/Observation: Thin female in no apparent distress.�
Pain/Comfort Assessment: Denies�
Mood/Affect: Mild irritability, tired
�
Integumentary/Operative Site:�
�� Pressure Ulcer Evaluation: absent over heels.�
�
Eyes: Conjunctiva/Lids: normal���� Pupils: pupils equal round and reactive to light and Accommodation�
Ears/Nose/Throat: oral mucosa moist,� throat clear.������������ Lips/Teeth/Gums: normal�
Neck: No muscle spasm or tenderness�
Cardiovascular: Heart: regular, no murmur�
Pulses: dorsalis pedis 2+ bilaterally�
Respiratory: Respiratory Effort/Chest Expansion: normal������� Auscultation: diminished BS,Clear to auscultation bilaterally�
Gastrointestinal: abdomen not tender, no distension, normal abdominal bowel sounds�
Genitourinary: No Church�
Extremities:�Edema: None�Cyanosis: None�Trophic�changes: None
�
Neurology Exam:
Orientation: lethargic, Oriented to self, month, not date, Place�
Memory: Intact for basic information, impaired for more complex information
Comprehension: Slow processing, needs repeating
Two step command: Slow processing, needs cueing, repeating
Naming: Intact
Cranial Nerves:
�� CNII:�Pupillary light reflex: Intact����Visual Field: Intact
�� CN III, IV, : Extraocular muscles: Intact, but slow to track to the left and down�
�� CN V:�Facial Sensation�at�Forehead: Intact,�Maxilla: Intact,�Mandible: Intact
�� CN VII:�Facial movement: Left facial drooping
�� CN VIII:�Hearing: Normal
�� CN IX/X:�Speech & swallow: dysarthria, hypophonia, wet voice�Position of Uvula: Midline
�� CN XI:�Shoulder shrug: Symmetric
�� CN XII:�Tongue protrusion: Midline
Sensory:
�� Light touch: Intact in bilateral upper and lower extremities
��
Reflexes:
�� Biceps: 2+ bilaterally
�� Brachioradialis: 2+ bilaterally
�� Triceps: 2+ bilaterally
�� Patellar: 2+ bilaterally
�� Achilles: 2+ bilaterally
�� Babinski: Down going bilaterally
�� Clonus: None
�� Amanda: Negative bilaterally�
Cerebellar: Dysmetria/Ataxia: None, but quicker to perform on the right than the left�
Musculoskeletal: Motor: (Manual muscle scale 0-5)�
Muscle SA EF WE EE FF FA HF KE DF EHL PF
Right� 5 5 5 5 4 4 4 5 5
Left 5 5 5 5 4 4 4 4 5
�
Tone: Normal in all extremities�
Range of Motion: Passively within normal limits in all �
�
Lab Results
Labs
Laboratory Data
09/09/25 08:07
09/09/25 04:13
PT 70.8 Sec (11.4-14.6) H 09/09/25 04:13
INR > 8.0 H* D 09/09/25 04:13
APTT 53.5 Sec (23.4-35.0) H 09/08/25 04:57
Total Bilirubin 0.7 mg/dl (0.2-1.3) 09/07/25 03:19
Direct Bilirubin 0.4 mg/dl (0.0-0.4) 09/05/25 14:28
AST 34 U/L (14-36) 09/07/25 03:19
ALT 16 U/L (0-35) 09/07/25 03:19
Alkaline Phosphatase 103 U/L (38-126) 09/07/25 03:19
Total Protein 6.6 g/dl (6.3-8.2) 09/07/25 03:19
Albumin 2.6 g/dl (3.5-5.0) L 09/07/25 03:19
WBC 5.5 10^3/uL (4.8-10.8) 09/08/25 04:57
RBC 4.78 10^6/uL (4.20-5.40) 09/08/25 04:57
Hgb 13.3 g/dL (12.0-16.0) 09/08/25 04:57
Hct 41.0 % (37.0-47.0) 09/08/25 04:57
MCV 85.8 fL (81.0-99.0) 09/08/25 04:57
MCH 27.8 pg (27.0-31.0) 09/08/25 04:57
MCHC 32.4 g/dL (33.0-37.0) L 09/08/25 04:57
RDW 19.4 % (11.5-14.5) H 09/08/25 04:57
Plt Count 147 10^3/uL (130-400) 09/08/25 04:57
MPV 11.4 fL (7.4-10.4) H 09/08/25 04:57
Abs Immat Gran (auto) 0.4 10^3/uL (0-0.05) H 09/04/25 00:03
Absolute Neuts (auto) 17.9 10^3/uL (1.4-6.5) H 09/04/25 00:03
Absolute Lymphs (auto) 0.3 10^3/uL (1.2-3.4) L 09/04/25 00:03
Absolute Monos (auto) 0.3 10^3/uL (0.1-0.6) 09/04/25 00:03
Absolute Eos (auto) 0.1 10^3/uL (0-0.7) 09/04/25 00:03
Absolute Basos (auto) 0.1 10^3/uL (0-0.2) 09/04/25 00:03
Immature Gran % 2.0 % (0-0.5) H 09/04/25 00:03
Neutrophils % 94.4 % (42.2-75.2) H 09/04/25 00:03
Lymphocytes % 1.5 % (20.5-51.1) L 09/04/25 00:03
Monocytes % 1.3 % (1.7-9.3) L 09/04/25 00:03
Eosinophils % 0.3 % (0-6) 09/04/25 00:03
Basophils % 0.5 % (0-2) 09/04/25 00:03
Nucleated RBC % 0.2 % 09/04/25 00:03
PT 50.6 Sec (11.4-14.6) H 09/08/25 04:57
INR 5.60 H* D 09/08/25 04:57
APTT 53.5 Sec (23.4-35.0) H 09/08/25 04:57
VBG pH 7.30 (7.32-7.43) L 09/06/25 04:08
VBG pCO2 34 mmHg (35-48) L 09/06/25 04:08
VBG pO2 125 mmHg (30-50) H 09/06/25 04:08
VBG HCO3 16.7 mmol/L (22-27) L 09/06/25 04:08
VBG O2 Sat (Tamera) 100.0 % 09/06/25 04:08
VBG Base Excess -8.8 mmol/L (-4 to +4) 09/06/25 04:08
VBG O2 Therapy Room air 09/06/25 04:08
Sodium 142 mmol/L (135-145) 09/08/25 04:57
Potassium 4.1 mmol/L (3.5-5.1) 09/08/25 04:57
Chloride 110 mmol/L (98-107) H 09/08/25 04:57
Carbon Dioxide 18 mmol/L (22-30) L 09/08/25 04:57
BUN 65 mg/dl (7-17) H 09/08/25 04:57
Creatinine 1.6 mg/dL (0.6-1.0) H 09/08/25 04:57
Estimated Creat Clear 19 ml/min 09/08/25 04:57
eGFR 34.27 09/08/25 04:57
Glucose 100 mg/dl (70-99) H 09/08/25 04:57
Lactic Acid 1.9 mmol/L (0.7-2.0) 09/05/25 21:46
Calcium 8.9 mg/dl (8.4-10.2) 09/08/25 04:57
Ionized Calcium 0.92 mMOL/L (1.15-1.33) L 09/05/25 14:28
Phosphorus 2.9 mg/dl (2.5-4.5) 09/05/25 06:07
Magnesium 2.0 mg/dl (1.6-2.3) 09/08/25 04:57
TIBC Cancelled 09/05/25 06:07
% Saturation Cancelled 09/05/25 06:07
Total Bilirubin 0.7 mg/dl (0.2-1.3) 09/07/25 03:19
Direct Bilirubin 0.4 mg/dl (0.0-0.4) 09/05/25 14:28
AST 34 U/L (14-36) 09/07/25 03:19
ALT 16 U/L (0-35) 09/07/25 03:19
Alkaline Phosphatase 103 U/L (38-126) 09/07/25 03:19
Lactate Dehydrogenase 263 U/L (120-246) H 09/06/25 04:08
Troponin I 0.025 ng/ml 09/04/25 02:51
Jcx-D-Lspufflopfc Pept > 90958 pg/ml 09/07/25 03:19
Total Protein 6.6 g/dl (6.3-8.2) 09/07/25 03:19
Albumin 2.6 g/dl (3.5-5.0) L 09/07/25 03:19
Triglycerides 98 mg/dl (10-149) 09/05/25 06:07
Total Cholesterol 61 mg/dl (50-199) 09/05/25 06:07
LDL Cholesterol, Calc 25 mg/dl 09/05/25 06:07
VLDL Cholesterol, Calc 19 mg/dl (0-30) 09/05/25 06:07
HDL Cholesterol 17 mg/dl 09/05/25 06:07
Urine Color Yellow 09/04/25 02:51
Urine Clarity Clear (Clear) 09/04/25 02:51
Urine pH 5.0 (5.0-9.0) 09/04/25 02:51
Ur Specific [place] 1.015 (<1.030) 09/04/25 02:51
Urine Ketones Negative (Negative) 09/04/25 02:51
Ur Occult Blood Reflex Negative (Negative) 09/04/25 02:51
Urine Nitrite (Reflex) Negative (Negative) 09/04/25 02:51
Urine Bilirubin Negative (Negative) 09/04/25 02:51
Urine Urobilinogen Negative (Neg - 1+) 09/04/25 02:51
Leukocyte Esterase Rfl Negative (Negative) 09/04/25 02:51
Urine RBC 0-2 /HPF (0-2) 09/04/25 02:51
Urine WBC (Reflex) 3-5 /HPF (0-5) 09/04/25 02:51
Ur Squamous Epith Cells 6-10 /LPF (Few) 09/04/25 02:51
Amorphous Crystals Seen 09/04/25 02:51
Urine Bacteria (Reflex) Moderate (Negative) A 09/04/25 02:51
Urine Glucose Negative (Negative) 09/04/25 02:51
Urine Albumin (Reflex) 2+ (Neg - Trace) A 09/04/25 02:51
Fluid pH Cancelled 09/06/25 11:09
Fluid WBC 693 /CUMM 09/06/25 11:09
Fluid Mononuclear Cell 46.2 % 09/06/25 11:09
Fl Polymorphonucl Cell 53.8 % 09/06/25 11:09
Fluid Other Cells Not Reportable 09/06/25 11:09
Fluid Diff Path Review Not Reportable 09/06/25 11:09
Fluid Glucose 87 mg/dl 09/06/25 11:09
Fluid Total Protein 4.0 g/dl 09/06/25 11:09
Fluid LDH 136 U/L 09/06/25 11:09
POC Glucose 123 mg/dl (70-99) H 09/04/25 17:56
Blood Type O POS 09/04/25 23:34
Antibody Screen Negative (Negative) 09/04/25 23:34
Crossmatch IS Only See Detail 09/04/25 23:34
�
Diagnostic Results:�as per HPI�
�09/06/25 CXR: Interval increase in opacification of the right lower lung, most likely atelectasis. Evidence for small to moderate right pleural effusion including lateral loculation. Small left pleural effusion. Parenchymal opacity within the left
lower lung, mainly medially, with differential considerations of atelectasis and/or pneumonia.
11/05/24 Brain MRI: There are small foci of acute to subacute infarct involving both occipital lobes; suspicious for a focus of acute to subacute infarct involving the choroid plexus, although can also be seen with choroid plexus xanthogranuloma.
Findings would suggest focal area of acute to subacute infarct in the right frontal lobe, superior to the region of encephalomalacia.
09/04/25 CXR: The lungs are clear.
09/04/25 CT a/P: Markedly limited CT of the abdomen and pelvis as a result of numerous factors,
09/04/[address]: At least 3 cm focus of decreased attenuation centered about the right sylvian fissure which could represent an intracranial mass with edema such as metastatic disease. Subacute to chronic infarct cannot be differentiated on this CT
without intravenous contrast. Recommend Brain MRI without and with contrast for more complete evaluation.
09/04/25 L HIP XRAY:No acute fracture or dislocation. The hip joint space is maintained. Gluteus medius calcific tendinosis.
08/17/25 outside MRI wo contrast left hip report: ' There is evidence of a tear of the distal gluteus minimus muscle and tendon at the level of the greater trochanter with evidence of peritrochanteric edema and fluid. Incidental inguinal lymph
nodes are noted bilaterally.
Assessment:
69-year-old female with recurrent breast cancer sided postmastectomy and chemo presented with left hip pain post steroid injection. Developed abrupt onset dysphagia
�
Plan�
PM&R�PT/OT to increase independence with ADLs, improve balance, coordination, endurance, strength, mobility, community reintegration, decreased burden of care on others and family education.�
�
CVA: Secondary prophylaxis resume warfarin when able. Currently on hold due to elevated INR over 8, statin, and blood pressure control (SBP less than 180 and diastolic less than 100 to participate with therapy for ischemic stroke). Continue to
monitor neurologic status.�
Dysphagia: speech, oral care protocol, aspiration precautions.�NGT out. Further goal of care discussion given patient high risk for aspiration. Currently on liquid diet.
Dysarthria: speech�
Sepsis/bacteremia: On ceftriaxone. Has increasing white blood cell count.
HTN: metoprolol, monitor closely�
HLD: Statin�
Right Pleural Effusion: s/p thoracentesis. Acid Fast Bacilli and Fluid Cx , cytology- pending
Coronary artery disease�: Aspirin, statin, beta-angel luis
CHF: lasix 20mg daily, BNP 27,000
Mechanical Aortic Valve: Coumadin on hold due to elevated INR >8
Recurrent Breast cancer: s/p bilateral mastectomy. on no treatment.�
Hypothyroidism: levothyroxine�
Psych: Monitor mood, adjust medications as needed.�
Skin: monitor for pressure sores/rashes/lesions.� Limit use of lorazepam
Pain: acetaminophen as needed, suggest stopping IV Dilaudid
Bowel: t/c Colace and Senna, PRN bisacodyl.�
Bladder: Time void, PVRs, PRN straight cath.
GI Prophylaxis: Pantoprazole�
DVT Prophylaxis:
Pulmonary: Incentive spirometry�
Safety: Continue to reinforce assistance with all transfers.�
Code Status:� DNR�
Dispo�(date/plan/equipment needs): Home with family care.� Social history reviewed.�
Functional and Medical Goals:�Modified Independent/supervision with ADL�s, ambulation, transfers�
Discharge Destination:� Patient with complex medical history and is currently not stable for discharge to rehab. At this time we will not be able to tolerate 3 hours of intense therapy daily. Will also need to figure out goals of care with feeding
and risk of aspiration given her video swallow test 09/09/2025. Discussed plan and concerns with patient and . Will need to continue to monitor patient's progress. If she has improved medical status and is able to eat and drink appropriate
amount of hydration/calories may improve and be able to participate in an acute inpatient rehabilitation program.
�
Thank you for allowing me to care for your patient. Please contact me with any questions or concerns.
Consultation
-
Date/Time Consultation Requested: 09/06 initially ok to defer per primary team based on patient status.
Date/Time Consultation Performed: 09/08 Chinyere Walker, 09/09 Dr. Patrick Neely
Requesting Provider: Dr. Chambers
Performing Provider: Chinyere Walker/Dr. Patrick Neely
Reason for Consultation: Rehab
[2025-09-09] MEDS: TOPROL XL 50 MG PO (20:57)
[2025-09-09] MEDS: DILAUDID 0.25 MG IV (20:58)
[2025-09-10] VITALS (9 sets, daily range): BP systolic 143–194; BP diastolic 56–82; PULSE 105; O2SAT 94; BMI 16.7
[2025-09-10] MEDS: CARDIZEM 125 IV (01:16)
[2025-09-10 04:15] LABS: INR 4.36; PT 41.2 Sec (11.4-14.6)
[2025-09-10 04:49] LABS: Hematocrit 38.4 % (37.0-47.0); Hemoglobin 13.0 g/dL (12.0-16.0); Mean Corp Hgb Conc. 33.9 g/dL (33.0-37.0); Mean Corpuscular Volume 82.8 fL (81.0-99.0); Platelet Count 188 10^3/uL (130-400); Red Cell Dist. Width 19.8 % (11.5-14.5)
[2025-09-10 04:50] LABS: Blood Urea Nitrogen 77 mg/dl (7-17); Calcium 9.0 mg/dl (8.4-10.2); Carbon Dioxide 24 mmol/L (22-30); Chloride 115 mmol/L (98-107); Estimated Creatinine Clearance 29 ml/min; Glucose 161 mg/dl (70-99); Potassium 4.2 mmol/L (3.5-5.1); Sodium 148 mmol/L (135-145); eGFR 53.72
[2025-09-10] MEDS: DUONEB 3 ML INH ×4 (07:39→19:42)
[2025-09-10] MEDS: PULMICORT 0.5 MG INH ×2 (07:39→19:42)
[2025-09-10] MEDS: SODIUM CHLORIDE 3% FOR INHALATION 1 VIAL INH ×2 (07:40→19:42)
--- NOTE | 2025-09-10 07:46 | W.PN.HOSP.TC ---
Addendum entered and electronically signed by Phuong Orosco MD 09/10/25 19:07:
I saw and evaluated the patient independently. I reviewed and discussed the resident�s note and agree with findings and plan as documented by Dr. Romo.
GENERAL: chronically ill appearing cachectic female in no apparent distress
HEENT: NC/AT +thrush
HEART: irreg irreg
LUNGS : clear to auscultation bilaterally
ABDOM: soft, nontender, nondistended, + bowel sounds
EXT: no cyanosis, clubbing, or edema
NEUROLOGIC: very anxious
septic shock with lactic acidosis from Strep Pyogenes (group A strep) bacteremia (POA)( had strep throat)--rapid response 09/04/25 with metabolic encephalopathy --apprec pulm--off pressors--blood cultures positive for GAS-repeat
negative--apprec ID--cont ceftriaxone until d/c then finish cephalexin (suspension likely needed) until 09/18/25--finished IVF, now on diuresis
New Atrial fibrillation--rate controlled on cardizem drip--apprec cards--trying to control with oral meds- Troponin 1.050--not pacemaker candidate--INR > 8--received vit K, now 4--hold coumadin--daily INR
Hypertensive urgency--cont IV hydralazine along with oral meds as able
Coffee Ground Emesis vs Bilious Emesis--? due to Dori Barbosa tear exacerbated by coumadin vs due to sepsis and known gastroparesis--holding coumadin, apprec GI--s/p 1 unit pRBC this admit-CT abd/pelvis w/o contrast limited study noted, possible
gastric outlet obstruction vs gastroparesis--cont PPI
Exudative Pleural effusion- On POCUS- right sided moderate pleural effusion- Suspect for sepsis site with Bc strep. pyogenes- empyema?- thoracentesis was performed 09/06 a total of 660 mL of serosanguineous fluid was collected--path pending
H/o Breast Cancer with brain lesions, metastasis vs embolic stroke--MRI neg for met disease--last Tx was in October--follows with Dr Amaral, recently received outpt IV iron infusions for anemia--apprec neuro--CT with -posterior circulation areas of
ischemia which are suggestive of embolic stroke in bilateral occipital lobes-Provide with AC, risk of hemorrhagic conversion of small posterior lesions unlikely. Avoid bolus IV heparin-DAVE 09/07 - No evidence of cardioembolic source of stroke, no
evidence for endocarditis
Dysarthria/Dysphagia--likely due to acute/subacute infarcts in bl occipital lobes, choroid plexus, and extension of previous right frontal lobe infarct--speech eval with VSE shows aspiration--NPO but pt wanted full liquids and is willing to take the
risk-- and daughter at bedside--daughter asking what is next--PEG vs hospice
Acute on CKD stage III-likely pre-renal poor oral intake nausea vomiting-IVF support- DC-avoid nephrotoxins, prn Toradol discontinued
Mechanical Aortic Valve Replacement on Coumadin with coagulopathy from coumadin (INR 8, s/p vit K, now 4)--HFpEF (recent ECHO EF 55-60%)-Prior VA, CVA with L sided weakness-AC was held in view of acute drop in Hb and concern for brain emboli with
bacteremia-Continue heparin ggt per eating disorder specialist, monitor APTT - Discontinued IV heparin on 09/07/2025-Repeat Lasix 20mg IV x 1 on 09/07 then switch to 20mg Lasix PO QD-Resume Metoprolol 25mg PO BID
Acute on Chronic Left Hip Pain-left hip greater trochanteric bursitis and gluteal tendinitis, follows Dr Caban-Hip X-ray appreciated no acute fracture or dislocation-Orthopedic eval appreciated steroid injection given 09/04/25- ice and tylenol
prn-PT/OT eval - acute rehab but PM&R says SNF
Anxiety--0.25mg Ativan Q6H
Hypothyroidism--Levothyroxine 88mcg PO QD - on hold due to NPO for meds status
Electrolyte abnormality-hypocalcemia- repleted
[id number] , Miralax-resolved
Pulmonary HTN- Group II with h/o AVR, elevated PCWP. Also elevated PVR suggestive of concomitant pre-capillary Pulmonary HTN
Severe protein calorie Malnutrition--apprec dietary input
DVT proph-- SCD
DNR as per POA Uziel
Original Note:
Today's Communication/Plan
-
5mg IV hydralazine, monitor bp
continue cardizem ggt
changed PO meds to IV
NPO for PO meds
Assessment / Plan
Assessment / Plan
09/04/25 Rapid Response Deteriorating Mental Status 2/2 Developing Severe Sepsis (Leukocytosis, Fever, end organ damage [place])
Acute Metabolic Encephalopathy
Septic shock from GAS with bacteremia
-After study, Sepsis due to Bacteremia with organ dysfunction of hypotension was present on admission
-Support Engineer consult, input appreciated
-Transferring from ICU to telemetry
-Septic shock Levophed on hold improving BP. Goal MAP>65
-Blood Cx's drawn in ED, Strep Pyogenes (+)
-ID consult, input appreciated
-Started on Renally dose Cefazolin per discussion with ID- Replace Cefazolin with Ceftriaxone #D6 - When able to take PO transition to cephalexin 500mg PO TID till 09/18/2025
-Pt's + for Strep throat. Repeat blood C's x2- no growth in 48hrs- pending
-Throat Cx Group B strep - negative
-Rapid strep for GAS-negative
-Pt has low CO2 18- NAGMA 11
-IVF with LR support - DC
-Pleural fluid Cx- pending
-PMR consult, input appreciated - subacute rehab
-productive mucous , suction of throat- Ordered Chest Xray for hypoxia
-Follow temp- tylenol prn
-Follow vitals
Chest Xray
-Small to moderate right pleural effusion with associated atelectasis and/or pneumonia, progressed
-Small left pleural effusion with associated atelectasis and/or pneumonia, slightly improved
-Suspect mild CHF
New Atrial fibrillation
- Overnight she had HR >150's irregular, BP 135/53 98.2, 22 95% 2l , EKG Afib with RVR, no hx of Afib noted
- Received Metoprolol, Cardizem
- Continue Cardizem infusion 5ml/hr
- Troponin 1.050
- Afib likely due to ? aspiration ? pleural effusion? hypovolumic?
- CHADSVASC score 7
- Consult cardiology, input appreciated
--Increase Toprol to 50mg BID for rate control, she is on NPO for meds - continue trial of 50mg metoprolol BID per cards rec.
--Attempt to wean carzidem ggt
--Not PPM candidate at present given coagulopathy as well as bacteremia / sepsis
--Cardizem 125mg/125ml per protocol
Hypertensive urgency
- L187/82, R 194/76
- IV hydralazine 5mg Q6h, Hold if SBP <130
Nausea and Vomiting
Coffee Ground Emesis vs Bilious Emesis
-Warfarin was on hold at the admission because of possible GI Bleeding exacerbated by Warfarin
-Suspect previous coffee ground material secondary to bilious emesis related to sepsis and known gastroparesis
-Hx of GIB with recent scopes in April
-09/04 NGT placed to suction w/ relief symptoms- Patient had NG tube which was pulled 09/06/2025 with no significant finding of coffee-ground emesis
-CT abd/pelvis w/o contrast limited study noted, possible gastric outlet obstruction vs gastroparesis
-Hb 8.7, received 1PRBC this admission. transfuse if Hgb<8 - Hb 13.1
-Consult GI, input appreciated
-Switch to oral PPI 40mg BID from Protonix BID
-Avoid NSAID
-Improved
Pleural effusion
- On POCUS- right sided moderate pleural effusion
- Suspect for sepsis site with Bc strep. pyogenes- empyema?
- thoracentesis was performed 09/06. a total of 660 mL of serosanguineous fluid was collected
- Acid Fast Bacilli and Fluid Cx - neg prelim
- Per Light's Criteria PF/Serum Protein= 0.58= exudative, PF/Serum LDH=0.517=does not meet criteria
- Meets 1 Lights criteria - exudative, gross look of serosanginous fluid 2/2 ? infection, ? malignancy, ? pseudoexudative 2/2 home lasix - await pathology results
- Pro BNP >44445 , transudative 2/2 HF?
- Trace Left Pleural effusion developing - discontinue IV fluid, 20mg Lasix PO QD
H/o Breast Cancer with brain lesions, metastasis vs embolic stroke
CT scan of head
At least 3 cm focus of decreased attenuation centered about the right sylvian fissure which could represent an intracranial mass with edema such as metastatic disease.
Subacute to chronic infarct cannot be differentiated on this CT without intravenous contrast.
Recommend Brain MRI without and with contrast for more complete evaluation.
Brain MRI w/wo contrast
There is no MR evidence for intracranial metastatic disease
There are small foci of acute to subacute infarct involving both occipital lobes
Focal region of abnormal restricted diffusion involving the choroid plexus within the atria of the right lateral ventricle.
Given the findings in the occipital lobe, this is suspicious for a focus of acute to subacute infarct involving the choroid plexus, although can also be seen with choroid plexus xanthogranuloma
Focal area of encephalomalacia involving the inferior right frontal and superior right temporal lobe, in the region of the insula. There is a region of abnormal diffusion extending superiorly and anteriorly to the region of encephalomalacia, and
signal abnormality extends appears increased compared to previous MRI in June 2021.
Findings would suggest focal area of acute to subacute infarct in the right frontal lobe, superior to the region of encephalomalacia
Carotid US- Minimal calcified carotid bulb plaque on each side, measurements suggestive of less than 50% stenosis on each side
-last Tx was in October
-follows with Dr Amaral, recently received outpt IV iron infusions for anemia
-Consulted Neurology, input appreciated
-posterior circulation areas of ischemia which are suggestive of embolic stroke in bilateral occipital lobes
-Provide with AC, risk of hemorrhagic conversion of small posterior lesions unlikely. Avoid bolus IV heparin
-DAVE today 09/07 - No evidence of cardioembolic source of stroke, no evidence for endocarditis
Dysarthria
Dysphagia
-likely 2/2 acute/subacute infarcts in bl occipital lobes, choroid plexus, and extension of previous right frontal lobe infarct
-New Speech eval - thin liquids only until VSE completed
-VSE today
- Fluoroscopic evidence of laryngeal penetration and aspiration was demonstrated.
- Vallecular residue noted throughout study with all barium consistencies.
- Brief fluoroscopy of the thoracic esophagus did not demonstrate any residue
-NPO was recommended, Pt and her Silvino stated wanting to continue her diet full liquids - understanding the risk of aspiration. Risks from aspiration and her DNI, DNR status were discussed with them.
Acute on CKD stage III
-likely pre-renal poor oral intake nausea vomiting
-IVF support- DC
-avoid nephrotoxins, prn Toradol discontinued
-monitor renal function
Mechanical Aortic Valve Replacement on Coumadin
HFpEF (recent ECHO EF 55-60%)
ASCVD
Prior VA, CVA with L sided weakness.
-AC was held in view of acute drop in Hb and concern for brain emboli with bacteremia
-Continue heparin ggt per eating disorder specialist, monitor APTT - Discontinued IV heparin on 09/07/2025
-Repeat Lasix 20mg IV x 1 on 09/07 then switch to 20mg Lasix PO QD
-Resume Metoprolol 25mg PO BID
-therapeutic INR 2-3
-09/09 INR>8 received 2.5mg Vit K PO, no obvious bleeding source?interaction with Ceftriaxone
-INR 4.36 Hold 2.5mg Coumadin
-Follow Daily INR
TTE
1. Compared to a prior transthoracic echocardiogram study from 07/25/2025 no significant changes are seen.
2. Left ventricle is small in size. Mild concentric left ventricular hypertrophy. Preserved left ventricular systolic function. Left ventricular ejection fraction is 55-60% by visual estimate.
3. Well seated mechanical aortic valve replacement. Peak/mean gradients across the aortic valve are 7/4 mmHg respectively. No aortic regurgitation.
4. Moderate tricuspid regurgitation. Estimated pulmonary artery pressure of 39 mmHg assuming a right atrial pressure of 3 mmHg.
5. Thickened calcified mitral valve leaflets with adequate excursion. Dense mitral annular calcification. There is at least mild to moderate mitral regurgitation which may have been underestimated due to mitral annular calcification.
Acute on Chronic Left Hip Pain
-left hip greater trochanteric bursitis and gluteal tendinitis, follows Dr Caban
-Hip X-ray appreciated no acute fracture or dislocation
-Orthopedic eval appreciated steroid injection given 09/04/25- ice and tylenol prn
-PT/OT eval - acute rehab
-PMR consult, input appreciated - subacute rehab
Anxiety
-0.25mg Ativan Q6H
Hypothyroidism
-Levothyroxine 88mcg PO QD - on hold due to NPO for meds status
-For IV levothyroxine policy is to wait 3 days NPO before starting IV dose. IV dose is 75% of PO so reduce 88mcg PO to 66mcg IV QD on 09/13
-Last PO levothyroxine was on 09/09
Electrolyte abnormality
-hypocalcemia- repleted
Constipation
-Senokot-S , Miralax
-resolved
Pulmonary HTN
- RHC 10/2024, mPA 41, PCWP 22 with CI 2.5, PVR 5.8.
- Group II with h/o AVR, elevated PCWP. Also elevated PVR suggestive of concomitant pre-capillary Pulmonary HTN
Malnutrition
-Likely Severe Protien Calorie Malnutrition vs cachexia
-Consult Dietary RN
-BMI 16.7
DVT ppx SCD
DNR as per POA Uziel
Dispo: Eventually hope to transfer pt to [facility] after discharge
Anticipated Discharge: > 48 hours
Subjective/Interval History
-
Date of Service: September 10, 2025
She has been feeling anxious, requesting her home Ativan dose. Per nurse this morning her BP went up to 194/76 R, L 187/82. She has a little bit of a headache. Denies chest pain, No SOB on 3L o2 NC.
Objective Data
-
Labs:
Laboratory Results
09/10/25
03:49
WBC 13.9 H
Hgb 13.0
Hct 38.4
Plt Count 188
PT 41.2 H
INR 4.36 D
Sodium 148 H
Potassium 4.2
Chloride 115 H
Carbon Dioxide 24
BUN 77 H
Creatinine 1.1 H
Glucose 161 H
Calcium 9.0
Vital Signs:
Vital Signs
Temp Pulse Resp BP Pulse Ox
97.5 F 95 24 143/71 96
09/10/25 03:33 09/10/25 03:33 09/10/25 03:33 09/10/25 03:33 09/10/25 03:33
I&O
09/09/25 09/10/25 09/11/25
06:59 06:59 06:59
Intake Total 420 / 420 480 / 480
Output Total 275 / 275
Balance 145 / 145 480 / 480
Review of Systems
-
History Source: Patient
Constitutional: Reports No Symptoms and Weakness (left leg)
EENT: Reports No Symptoms Reported
Respiratory: Reports No Symptoms
Cardiac: Reports No Symptoms
Abdomen/GI: Reports No Symptoms
Breast: Reports No Symptoms
Genitourinary: Reports No Symptoms
Musculoskeletal: Reports Joint Swelling (left hip)
Skin: Reports No Symptoms
Neuro: Reports No Symptoms
Endocrine: Reports No Symptoms
Allergy / Immunology: Reports No Symptoms
Psych: Reports Anxious
Physical Exam
-
General: Well Developed, Appears in Distress, Conversant, Appears Chronically Ill and Cachectic
HEENT: Normocephalic, Atraumatic, Pharyngeal Erythema (goss patch) and Oxygen (3L NC)
Respiratory: Clear to Auscultation
Cardiac: Regular Rhythm and S1/S2
Breast: Deferred by me
GI: Soft, Nontender, Nondistended and Normal Bowel Sounds
Rectal: Deferred by Provider
Genito-urinary: [place]
Musculoskeletal: No Clubbing, No Cyanosis and No Edema
Skin: Warm and Dry
Neuro: AO x 3
Psych: Anxious
--- NOTE | 2025-09-10 08:45 | PTCARENOTE ---
Pt's BP elevated this am. Right calf was 194/76, Left forearm 187/82. Pt asymptomatic. Pt ordered Toprol 50mg po, but according to note from speech therapist and VSE, recommending non-oral medications. Reached out to Dr. Orosco and Dr. Gonzales re
above. Pt also verbalizing feeling very anxious. Awaiting further orders, will monitor.
[2025-09-10] MEDS: ATIVAN 0.25 MG IV (10:33)
[2025-09-10] MEDS: NSS (PRESERVATIVE FREE) 0.125 ML IV (10:34)
[2025-09-10] MEDS: FLUSH (NSS) 2 FLUSH IV (10:42)
[2025-09-10] MEDS: APRESOLINE 5 MG IV (10:42)
--- NOTE | 2025-09-10 11:23 | W.PN.CARDCBS ---
Today's Communication / Plan
-
Goal INR 2.5-3.5 with elevated INR noted
Antibiotics as you are
On increase metoprolol with good heart rate control in fact in sinus her heart rates are in the 80s to 90s
Will follow closely with you
Treat anxiety as you are
Impression / Plan
-
PCP: Dr. Haynes
Cardiology: Dr. Aramis Resendez
Oncology: Dr. Amaral
Impression:
Admitted 09/04/2025 with left hip pain
TME
Septic shock requiring pressors
Group A Streptococcus bacteremia
Suspected pneumonia
Right pleural effusion
s/p right thoracentesis for 660 mL of blood tinged fluid
Dysphagia, dysarthria likely secondary to acute/subacute infarcts in bilateral occipital lobes, choroid plexus, and extension of previous right frontal lobe infarct
Left hip pain/trochanteric bursitis/gluteus tendinitis s/p left hip injection x 2 as outpatient
h/o recurrent GIB (05/02/25 until 05/05/25, readmitted 05/06/25)
Chronic warfarin OAC managed by [facility] cardiology
h/o CVA
h/o CVA 2005
h/o right MCA stroke with M2 occlusion in setting of subtherapeutic INR while off Coumadin 07/15/21
patient bridged with Lovenox prior to colonoscopy 07/10/21, but no Lovenox bridge post-colonoscopy
Mechanical AVR pediatric size 2006
Mitral regurgitation with mitral stenosis
Tricuspid regurgitation with pulmonary hypertension
h/o Hodgkin's lymphoma treated with radiation to left neck and pelvis 1973
h/o breast CA
2018 treated with B/L mastectomy, patient refused chemotherapy and radiation, but eventually agreeable to Tamoxifen
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
Recurrence of breast cancer 2021 - did not tolerate Ibrance or Ribociclib
Labile HTN
Hypothyroidism
Chronic HFpEF
CAD with 60 to 70% ostial to proximal LM stenosis, 100% EXCHANGE TELLER proximal RCA with [id number] collaterals by cardiac cath 10/28/2024
LHC 10/28/2024: Eccentric 60-70% ostial to proximal Left main, difficult to advance IVUS catheter. iFR positive at 0.76. Elevated filling pressures, normal cardiac output/index, occluded right coronary artery with brisk collater, Nonobstructive plaque
of LAD and circumflex, pulmonary artery pressure 62/26, pulmonary capillary wedge pressure is 22, right atrial pressure is 11, cardiac index is 2.5
Echo 08/26/2022: Hyperdynamic LV.� EF 70 to 75%.� Mild to moderate MS peak/mean gradient 20/7 mmHg.� Moderate to severe MR.� Well-seated mechanical AVR with peak/mean gradient 11/6 mmHg without regurgitation.� Moderate to severe TR.� Moderate
pulmonary hypertension with PAP 50 to 55 mmHg.
Echo 02/10/2023: EF 60 to 65%.� Moderate mitral stenosis mean gradient 11 with severe MR.� Well-seated mechanical AVR with peak/mean gradient 15/8 mmHg, mild to moderate TR, mild pulmonary hypertension with PAP 45 to 48 mmHg.
Echo 11/19/2023: EF 70-75%, moderate MS with peak/mean gradients 15/8 mmHg, moderate MR, mechanical prosthetic AVR with peak/mean gradients 16/9 mmHg, trace AR, moderate TR, estimated PAP 30-35 mmHg
Echo 10/25/24: EF 55-60%, moderate mitral stenosis with mean gradient of 8 mmHg, mild to moderate MR, mechanical AVR with mean gradient of 10, no AI, mild to moderate TR with PA pressure 40-45
Echo 09/05/2025: EF 55 to 60%. Mild LVH. Mildly dilated LA and RA. Mild to moderate mitral regurgitation. Well-seated mechanical aortic valve peak/mean gradient 7/4 mmHg. No AI. Moderate TR with PAP 39 mmHg.
MRI brain 09/05/25: There is no MR evidence for intracranial metastatic disease. There are small foci of acute to subacute infarct involving both occipital lobes as described. Focal region of abnormal restricted diffusion involving the choroid
plexus within the atria of the right lateral ventricle. Given the findings in the occipital lobe, this is suspicious for a focus of acute to subacute infarct involving the choroid plexus, although can also be seen with choroid plexus
xanthogranuloma. Focal area of encephalomalacia involving the inferior right frontal and superior right temporal lobe, in the region of the insula. There is a region of abnormal diffusion extending superiorly and anteriorly to the region of
encephalomalacia, and signal abnormality extends appears increased compared to previous MRI in June 2021. Findings would suggest focal area of acute to subacute infarct in the right frontal lobe, superior to the region of encephalomalacia.
-Carotid ultrasound 09/05/25: Minimal calcified carotid bulb plaque on each side, measurements suggestive of less than 50% stenosis on each side.
Plan:
-Admitted 09/04/2025 with left hip pain then developed acute altered mental status and slurred speech and was found to have septic shock requiring pressors which have been weaned.
-Continues on IV abx for group A strep bacteremia.
-Found to have new acute to subacute strokes involving posterior circulation and in bilateral occipital lobe suggestive of embolic source on MRI.
-DAVE 09/07/25 with no evidence of valvular vegetation to suggest infective endocarditis. No evidence of left atrial appendage thrombus.
-Noted to go into rapid atrial fibrillation earlier this admission. On diltiazem drip. Continues on oral Toprol-XL 25 mg twice daily. Heart rates improved, but still remains somewhat elevated.
-She did have ~4 second pause noted on telemetry at 5 AM 09/09/2025, but no further pauses noted.
-Will increase Toprol to 50mg BID and follow closely on telemetry for now.
-Patient has history of pediatric mechanical aortic valve maintained on Coumadin as outpatient with goal INR 2.5-3.0.
-INR >8 today. warfarin on hold. Follow INR and resume as able.
-Given INR>8, bacteremia, no plan for PPM at this time, but will follow.
Progress Note - [employer]
Subjective
Date of Service: September 10, 2025
Having an anxiety attack when seen
Objective
Labs:
09/10/25 03:49
09/10/25 03:49
Labs
Hgb 13.0 g/dL (12.0-16.0) 09/10/25 03:49
Hct 38.4 % (37.0-47.0) 09/10/25 03:49
Plt Count 188 10^3/uL (130-400) 09/10/25 03:49
PT 41.2 Sec (11.4-14.6) H 09/10/25 03:49
INR 4.36 D 09/10/25 03:49
APTT 53.5 Sec (23.4-35.0) H 09/08/25 04:57
Sodium 148 mmol/L (135-145) H 09/10/25 03:49
Potassium 4.2 mmol/L (3.5-5.1) 09/10/25 03:49
BUN 77 mg/dl (7-17) H 09/10/25 03:49
Creatinine 1.1 mg/dL (0.6-1.0) H 09/10/25 03:49
Glucose 161 mg/dl (70-99) H 09/10/25 03:49
Troponins
09/08/25
21:19
Troponin I 1.050 H*
Vital Signs and I&O:
Vital Signs
Temp Pulse Resp BP Pulse Ox
97.1 F 95 24 187/80 99
09/10/25 07:10 09/10/25 10:42 09/10/25 07:43 09/10/25 10:42 09/10/25 11:18
Vital Signs
Temp Pulse Resp BP Pulse Ox
97.1 F 95 24 187/80 99
09/10/25 07:10 09/10/25 10:42 09/10/25 07:43 09/10/25 10:42 09/10/25 11:18
Intake & Output
09/08/25 09/09/25 09/10/25 09/11/25
06:59 06:59 06:59 06:59
Intake Total 510 / 510 420 / 420 480 / 480
Output Total 2200 / 2200 275 / 275
Balance -1690 / -1690 145 / 145 480 / 480
Physical Exam
Physical Exam
����Physical Exam
���������������������General:��no apparent distress, not acutely ill
���������������������������Neck:��supple. no meningeal signs. normal psoterior pharynx
������������������������
���������������������������Heart:��s1/s2 regular rate and rhythm, no murmur. equal radial pulses.
��������������������������Lungs: ��no acute respiratory distress. clear bilaterally
����������������������Abdomen:�normal bowel sounds. not tender. no CVAT
��������������������������Neuro:��alert and oriented. no focal neurological deficits
������������������������������Skin: ��no rash
�����������������������Psychiatric:�well kept. interactive and cooperative
�����������������������Extremities:��no edema. no calf tenderness. negative homans. good distal pulses
��
�
--- NOTE | 2025-09-10 12:13 | W.PN.ID1 ---
Date of Service
Date of Service: September 10, 2025
Today's Communication
- Continue with ceftriaxone (d6)
- At time of DC, transition to cephalexin 500mg po tid till 09/18/25.
Assessment / Plan
# Group A streptococcus bacteremia, suspect lung source
# Multiple acute/subacute CVA; DAVE no source of embolic CVA
# Dysphagia/Aspiration PNA
# Leukocytosis - improving
#s/p Septic shock
# Fever resolved
# Left hip pain/trochanteric bursitis/gluteus tendinitis s/p left hip injection x 2
# Gastroparesis
# Severe protein-calorie malnutrition
# Hx Splenectomy
# Stage 3 breast ca (not on tx)
# Mechanical AVR - DAVE neg vege
- with recent Group A strep pharyngitis
Swab pt's throat negative rapid strep, neg cx
- Repeat blood cx's x 2 negative t
- DAVE: no vegetation
- Right pleural effusion s/p thora 660cc serosanguineous fluid; exudative, cx negative
- Aspiration precaution
- Continue with ceftriaxone (d6)
- At time of DC, transition to cephalexin 500mg po tid till 09/18/25.
- Trend WBC
Chief Complaint
-: Clinical Sepsis and Bacteremia
Subjective / Review of Systems
at bedside. Pt coughed with thick fluids.
Vital Signs / Physical Exam
Vital Signs
Vital Signs
Temp Pulse Resp BP Pulse Ox
97.1 F 116 20 187/80 98
09/10/25 07:10 09/10/25 11:33 09/10/25 11:33 09/10/25 10:42 09/10/25 11:33
Physical Exam
Constitutional: Chronically Ill and Cachetic
Eyes: No Conjunctival Hemorrhage and Sclera Anicteric
Cardiovascular: S1/S2 (tachy)
Pulmonary: Other (decreased BS bases)
Gastrointestinal: Soft, Non Tender and Non Distended
Extremities: Negative Edema
Neurological: Awake and Alert
Objective Data
Lab Data
Lab Results
09/10/25 03:49
09/10/25 03:49
PT 41.2 Sec (11.4-14.6) H 09/10/25 03:49
INR 4.36 D 09/10/25 03:49
APTT 53.5 Sec (23.4-35.0) H 09/08/25 04:57
Estimated Creat Clear 29 ml/min 09/10/25 03:49
Lactic Acid 1.9 mmol/L (0.7-2.0) 09/05/25 21:46
Total Bilirubin 0.7 mg/dl (0.2-1.3) 09/07/25 03:19
AST 34 U/L (14-36) 09/07/25 03:19
ALT 16 U/L (0-35) 09/07/25 03:19
Alkaline Phosphatase 103 U/L (38-126) 09/07/25 03:19
Most recent labs reviewed.
Micro Results:
09/06/25 04:18 Blood Culture - Preliminary
Blood/Venous No Growth in 4 days- Final report to follow
09/05/25 14:28 Blood Culture - Preliminary
Blood/Venous No Growth in 4 days- Final report to follow
09/06/25 11:09 Body Fluid Culture - Final
Pleural Fluid No Growth After 72 Hours
Gram Stain - Final
09/06/25 11:09 Acid Fast Bacilli Smear - Preliminary
Pleural Fluid Acid Fast Bacilli Culture - Preliminary
09/05/25 13:59 Streptococcus Screen (VANDANA) - Final
Throat/Pharynx No Beta Hemolytic Streptococci Isolated
Streptococcus Rapid Screen - Final
Rapid Strep Screen (Group A) Negative
09/05/25 13:59 Throat Culture - Final
Throat/Pharynx Usual Respiratory Tawnya
09/04/25 02:51 Urine Culture - Final
Urine NO GROWTH
09/04/25 02:50 Blood Culture - Preliminary
Blood/Venous Streptococcus pyogenes
Gram Stain - Final
09/04/25 02:50 Blood Culture - Preliminary
Blood/Venous Streptococcus pyogenes
Gram Stain - Final
09/08/25 CXR: Small to moderate right pleural effusion with associated atelectasis and/or pneumonia, progressed. Small left pleural effusion with associated atelectasis and/or pneumonia, slightly improved. Suspect mild CHF.
09/06/25 CXR: Interval increase in opacification of the right lower lung, most likely atelectasis. Evidence for small to moderate right pleural effusion including lateral loculation. Small left pleural effusion. Parenchymal opacity within the left
lower lung, mainly medially, with differential considerations of atelectasis and/or pneumonia.
11/05/24 Brain MRI: There are small foci of acute to subacute infarct involving both occipital lobes; suspicious for a focus of acute to subacute infarct involving the choroid plexus, although can also be seen with choroid plexus xanthogranuloma.
Findings would suggest focal area of acute to subacute infarct in the right frontal lobe, superior to the region of encephalomalacia.
09/04/25 CXR: The lungs are clear.
09/04/25 CT a/P: Markedly limited CT of the abdomen and pelvis as a result of numerous factors,
09/04/[address]: At least 3 cm focus of decreased attenuation centered about the right sylvian fissure which could represent an intracranial mass with edema such as metastatic disease. Subacute to chronic infarct cannot be differentiated on this CT
without intravenous contrast. Recommend Brain MRI without and with contrast for more complete evaluation.
09/04/25 L HIP XRAY:No acute fracture or dislocation. The hip joint space is maintained. Gluteus medius calcific tendinosis.
08/17/25 outside MRI wo contrast left hip report: ' There is evidence of a tear of the distal gluteus minimus muscle and tendon at the level of the greater trochanter with evidence of peritrochanteric edema and fluid. Incidental inguinal lymph
nodes are noted bilaterally.
[2025-09-10] MEDS: SYNTHROID PO (12:47)
--- NOTE | 2025-09-10 13:06 | W.PN.PUL3 ---
Today's Communication / Plan
-
- Antibiotics per ID service
- F/u CXR in AM to evaluate for any re-accumulation
- O2 as needed.
Assessment
-
Patient
Is a 69-year-old female who was admitted to the hospital on 09/04 with chief complaint of left hip pain. Patient had a hip x-ray performed on admission which was unrevealing without any evidence of fracture. Patient has a complex medical history
with prior history of Hodgkin's lymphoma treated with radiation, breast cancer, aortic stenosis s/p mechanical valve replacement on chronic Coumadin therapy as well as multiple episodes of GI bleed with unrevealing EGD and colonoscopy with concern
for small bowel AVMs. Patient has had blood transfusions in the past for anemia. Reportedly patient developed left pain on the hip area, couple of days prior to admission which has been steadily worsening. Patient was evaluated by orthopedic
surgery as outpatient and had a localized steroid injection about 10 days ago for suspected left hip greater trochanteric bursitis and gluteal tendinitis. Patient had another injection of Kenalog 40 mg along with lidocaine on 09/04. Patient
reports improved pain since. In view of recurrence of pain she presented to the emergency room.
Hospital course was complicated by increased lethargy, disorientation and altered mental status which prompted a CT head which was suggestive of a mass with edema suspicious for metastasis versus old stroke. Patient also noted to have elevated
lactate and subsequently positive blood cultures with Streptococcus pyogenes. In view of septic shock and altered mental status, patient had a rapid response event called and was transferred to ICU for further management. Home Help Aide consultation
was requested for further input.
Septic shock with lactic acidosis due to Group A Strep bacteremia
Anemia-acute blood loss
Right pleural effusion status post thoracentesis--660 mL liter serosanguineous fluid
[place]
Metabolic encephalopathy with brain lesions metastatic versus old CVA
Pulmonary hypertension
Status post AVR
Heart failure preserved EF
Plan
Respiratory status improved, currently doing well on room air. Denies PND or orthopnea. No significant cough reported.
Incentive spirometry added
Acapella added
Mucus clearing devices-Mucinex added
Nebulizers
Saline nebulizers to help with secretion management
Aspiration precautions
Monitor for right pleural effusion reaccumulation-status post right thoracentesis--660 mL serosanguineous fluid-pseudo exudate. F/u CXR in AM.
Pleural fluid cultures negative so far.
Infectious disease following
Antibiotics per infectious disease-ceftriaxone 2 g every 24
DAVE without evidence for vegetation
Pressors weaned
Lactate trended down
Cardiology following-correspondence reviewed
DAVE negative
Chronic Coumadin for AVR-mechanical valve
Group 2 pulmonary hypertension
DVT prophylaxis-on Coumadin
GI prophylaxis-on pantoprazole
Nutrition
Early mobilization/physical therapy
Subjective Data
-
Date of Service:
Date of Service: September 10, 2025
Chief Complaint: Pulmonary Follow Up and Dyspnea Follow Up
Subjective:
Comfortably sitting in chair, no acute distress.
Review of Systems
Genitourinary: Other (No new symptoms reported. )
Objective Data
Data Reviewed
Vital Signs / I&O / Oxygen:
Vital Signs
Temp Pulse Resp BP Pulse Ox
97.6 F 111 20 156/74 93
09/10/25 11:45 09/10/25 11:45 09/10/25 11:45 09/10/25 11:45 09/10/25 11:45
Intake and Output
09/09/25 09/10/25 09/11/25
06:59 06:59 06:59
Intake Total 420 / 420 480 / 480
Output Total 275 / 275
Balance 145 / 145 480 / 480
SaO2 93
Nasal Cannula flow liters per 3
minute
Physical Exam
General: Respiratory Distress (n) and Comfortable
HEENT: Normocephalic, Anicteric and Moist Mucous Membranes
Cardiovascular: Regular Rhythm
Respiratory: Crackles (Few basilar), Rhonchi (NOne), Non-Labored Respirations, Accessory Resp Muscle Use (n) and Stridor (n)
GI: Soft and Non Distended
Neurology: Awake, Alert and No Motor Deficits
Skin: Warm, Good Color, Cyanosis (n) and Jaundice (n)
Labs/Micro/Reports
Lab Data
09/10/25 03:49
09/10/25 03:49
Laboratory Results
09/10/25
03:49
PT 41.2 H
INR 4.36 D
Microbiology
09/06/25 04:18 Blood/Venous Blood Culture - Preliminary
No Growth in 4 days- Final report to follow
09/05/25 14:28 Blood/Venous Blood Culture - Preliminary
No Growth in 4 days- Final report to follow
09/06/25 11:09 Pleural Fluid Body Fluid Culture - Final
No Growth After 72 Hours
09/06/25 11:09 Pleural Fluid Gram Stain - Final
09/06/25 11:09 Pleural Fluid Acid Fast Bacilli Smear - Preliminary
09/06/25 11:09 Pleural Fluid Acid Fast Bacilli Culture - Preliminary
09/05/25 13:59 Throat/Pharynx Streptococcus Screen (VANDANA) - Final
No Beta Hemolytic Streptococci Isolated
09/05/25 13:59 Throat/Pharynx Streptococcus Rapid Screen - Final
Rapid Strep Screen (Group A) Negative
09/05/25 13:59 Throat/Pharynx Throat Culture - Final
Usual Respiratory Tawnya
[2025-09-10] MEDS: LASIX PO (13:36)
[2025-09-10] MEDS: PROTONIX PO (13:36)
[2025-09-10] MEDS: MUCINEX PO (13:36)
[2025-09-10] MEDS: TOPROL XL PO (13:37)
[2025-09-10] MEDS: ROCEPHIN 2000 MG IV (13:55)
[2025-09-10] MEDS: ROBITUSSIN 200 MG PO ×2 (13:55→20:49)
[2025-09-10] MEDS: NSS (PRESERVATIVE FREE) 10 ML IV ×2 (13:56→20:49)
[2025-09-10] MEDS: PROTONIX IV 40 MG IV ×2 (13:56→20:49)
[2025-09-10] MEDS: STERILE WATER FOR INJECTION 20 ML IV (13:56)
[2025-09-10] MEDS: LASIX 10 MG IV (13:56)
[2025-09-10] MEDS: LOPRESSOR 25 MG PO ×2 (13:57→20:48)
--- NOTE | 2025-09-10 15:04 | CM ---
CM following for discharge planning. PM&R consult completed - recommendation for subacute rehab/SNF.
Plan: CM to obtain SNF preferences and make referrals as identified.
[2025-09-10] MEDS: FLUSH (NSS) IV (16:29)
[2025-09-10] MEDS: ROBITUSSIN PO ×2 (17:53→23:04)
[2025-09-10] MEDS: MYCOSTATIN ORAL SUSPENSION 5 ML PO ×2 (18:28→21:03)
[2025-09-10] MEDS: DILAUDID 0.25 MG IV (22:41)
[2025-09-11] VITALS (8 sets, daily range): BP systolic 130–164; BP diastolic 49–71; PULSE 89–96; O2SAT 93; BMI 16.8
[2025-09-11] MEDS: CARDIZEM 125 IV (01:15)
[2025-09-11] MEDS: ATIVAN 0.25 MG IV (03:06)
[2025-09-11] MEDS: NSS (PRESERVATIVE FREE) 0.125 ML IV (03:07)
[2025-09-11 05:28] LABS: INR 1.65; PT 19.7 Sec (11.4-14.6)
[2025-09-11] MEDS: ROBITUSSIN PO ×6 (05:32→21:03)
[2025-09-11] MEDS: APRESOLINE 5 MG IV ×3 (05:40→18:08)
[2025-09-11] MEDS: DUONEB INH ×2 (07:48→11:35)
[2025-09-11] MEDS: SODIUM CHLORIDE 3% FOR INHALATION INH (07:48)
[2025-09-11] MEDS: PULMICORT INH (07:48)
--- NOTE | 2025-09-11 08:42 | W.PN.HOSP.TC ---
Addendum entered and electronically signed by Phuong Orosco MD 09/11/25 14:58:
I saw and evaluated the patient independently. I reviewed and discussed the resident�s note and agree with findings and plan as documented by Dr. Romo.
GENERAL: chronically ill appearing cachectic female in no apparent distress
HEENT: NC/AT +thrush
HEART: irreg irreg
LUNGS : clear to auscultation bilaterally
ABDOM: soft, nontender, nondistended, + bowel sounds
EXT: no cyanosis, clubbing, or edema
NEUROLOGIC: very anxious
septic shock with lactic acidosis from Strep Pyogenes (group A strep) bacteremia (POA- had strep throat)--rapid response 09/04/25 with metabolic encephalopathy --apprec pulm--off pressors--blood cultures positive for GAS--repeat
negative--apprec ID--cont ceftriaxone until d/c then finish cephalexin (suspension likely needed) until 09/18/25--finished IVF, now on diuresis
hypernatremia/hyperchloremia--not taking enough oral to maintain hydration--start D5W at 60ml/hr
New Atrial fibrillation--rate controlled on cardizem drip--apprec cards--trying to control with oral meds- Troponin 1.050--not pacemaker candidate--INR > 8--received vit K, 4, now 1.65 (has mechanincal valve)--start IV heparin bridge with
coumadin--daily INR
Hypertensive urgency--cont IV hydralazine along with oral meds as able
Coffee Ground Emesis vs Bilious Emesis--? due to Dori Barbosa tear exacerbated by coumadin vs due to sepsis and known gastroparesis--restart coumadin, apprec GI--s/p 1 unit pRBC this admit-CT abd/pelvis w/o contrast limited study noted, possible
gastric outlet obstruction vs gastroparesis--cont PPI
Exudative Pleural effusion- On POCUS- right sided moderate pleural effusion- Suspect for sepsis site with Bc strep. pyogenes- empyema?- thoracentesis was performed 09/06 a total of 660 mL of serosanguineous fluid was collected--path pending
H/o Breast Cancer with brain lesions, metastasis vs embolic stroke--MRI neg for met disease--last Tx was in October--follows with Dr Amaral, recently received outpt IV iron infusions for anemia--apprec neuro--CT with -posterior circulation areas of
ischemia which are suggestive of embolic stroke in bilateral occipital lobes-Provide with AC, risk of hemorrhagic conversion of small posterior lesions unlikely. Avoid bolus IV heparin-DAVE 09/07 - No evidence of cardioembolic source of stroke, no
evidence for endocarditis
Dysarthria/Dysphagia--likely due to acute/subacute infarcts in bl occipital lobes, choroid plexus, and extension of previous right frontal lobe infarct--speech eval with VSE shows aspiration--NPO but pt wanted full liquids and is willing to take the
risk-- and daughter at bedside--daughter asking what is next--PEG vs hospice--spoke with and daughter at bedside Sat 09/10--repeat head CT 09/11 shows evolving stroke in same previous distribution
Acute on CKD stage III--likely pre-renal poor oral intake nausea vomiting--IVF support- DC-avoid nephrotoxins, prn Toradol discontinued--creat improving
Mechanical Aortic Valve Replacement on Coumadin with coagulopathy from coumadin (INR 8, s/p vit K, now 4)--HFpEF (recent ECHO EF 55-60%)-Prior [place], CVA with L sided weakness-AC was held in view of acute drop in Hb and concern for brain emboli with
bacteremia-Continue heparin ggt per elderly caregiver, monitor APTT - Discontinued IV heparin on 09/07/2025-Repeat Lasix 20mg IV x 1 on 09/07 then switch to 20mg Lasix PO QD-Resume Metoprolol 25mg PO BID
Acute on Chronic Left Hip Pain-left hip greater trochanteric bursitis and gluteal tendinitis, follows Dr Caban-Hip X-ray appreciated no acute fracture or dislocation-Orthopedic eval appreciated steroid injection given 09/04/25- ice and tylenol
prn-PT/OT eval - acute rehab but PM&R says SNF
Anxiety--0.25mg Ativan Q6H
Hypothyroidism--Levothyroxine 88mcg PO QD - on hold due to NPO for meds status
Electrolyte abnormality-hypocalcemia- repleted
[id number]-[id number] , Miralax-resolved
Pulmonary HTN- Group II with h/o AVR, elevated PCWP. Also elevated PVR suggestive of concomitant pre-capillary Pulmonary HTN
Severe protein calorie Malnutrition--apprec dietary input
DVT proph-- SCD
DNR as per POA Uziel
Original Note:
Today's Communication/Plan
-
Attempt to dc cardizem - monitor HR
Metoprolol 50mg BID
start heparin ggt
start 2mg coumadin at 8pm
Follow INR daily
Assessment / Plan
Assessment / Plan
09/04/25 Rapid Response Deteriorating Mental Status 2/2 Developing Severe Sepsis (Leukocytosis, Fever, end organ damage [place])
Acute Metabolic Encephalopathy
Septic shock from GAS with bacteremia
-After study, Sepsis due to Bacteremia with organ dysfunction of hypotension was present on admission
-Dry Pan Feeder consult, input appreciated
-Transferring from ICU to telemetry
-Septic shock Levophed on hold improving BP. Goal MAP>65
-Blood Cx's drawn in ED, Strep Pyogenes (+)
-ID consult, input appreciated
-Started on Renally dose Cefazolin per discussion with ID- Replace Cefazolin with Ceftriaxone #D7 - When able to take PO transition to cephalexin 500mg PO TID till 09/18/2025
-Pt's + for Strep throat. Repeat blood C's x2- no growth in 48hrs- pending
-Throat Cx Group B strep - negative
-Rapid strep for GAS-negative
-Pt has low CO2 18- NAGMA 11
-IVF with LR support - DC
-Pleural fluid Cx- neg
-PMR consult, input appreciated - subacute rehab
-productive mucous , suction of throat
-Follow temp- tylenol prn
-Follow vitals
CT head scan 09/11/2025 for altered mental status
-There is evolving known infarction and chronic encephalomalacia within the lateral right frontal lobe.
-The known recent prior bilateral occipital infarcts are not well visualized on this examination.
-There is no evidence of acute intracranial hemorrhage
Chest Xray 09/11/2025 for residual pleural effusion
-There is improved aeration of the right lung with a tiny right-sided pleural effusion. No pneumothorax.
Chest Xray 09/08/25
-Small to moderate right pleural effusion with associated atelectasis and/or pneumonia, progressed
-Small left pleural effusion with associated atelectasis and/or pneumonia, slightly improved
-Suspect mild CHF
New Atrial fibrillation
- Overnight she had HR >150's irregular, BP 135/53 98.2, 22 95% 2l , EKG Afib with RVR, no hx of Afib noted
- Received Metoprolol, Cardizem
- Continue Cardizem infusion 5ml/hr
- Troponin 1.050
- Afib likely due to ? aspiration ? pleural effusion? hypovolumic?
- CHADSVASC score 7
- Consult cardiology, input appreciated
--Increase Toprol to 50mg BID for rate control, she is on NPO for meds - continue trial of metoprolol BID per cards
--Cardizem 5ml/h, Attempt to wean carzidem ggt - D/C
--Not PPM candidate at present given coagulopathy as well as bacteremia / sepsis
--Monitor HR
Hypertensive urgency
- L187/82, R 194/76
- BP 164/64
- IV hydralazine 5mg Q6h, Hold if SBP <130
Hypernatremia
-Na 151
-D5W 60ml/h
Nausea and Vomiting
Coffee Ground Emesis vs Bilious Emesis
-Warfarin was on hold at the admission because of possible GI Bleeding exacerbated by Warfarin
-Suspect previous coffee ground material secondary to bilious emesis related to sepsis and known gastroparesis
-Hx of GIB with recent scopes in April
-09/04 NGT placed to suction w/ relief symptoms- Patient had NG tube which was pulled 09/06/2025 with no significant finding of coffee-ground emesis
-CT abd/pelvis w/o contrast limited study noted, possible gastric outlet obstruction vs gastroparesis
-Hb 8.7, received 1PRBC this admission. transfuse if Hgb<8 - Hb 13.1
-Consult GI, input appreciated
-Switch to oral PPI 40mg BID from Protonix BID
-Avoid NSAID
-Improved
Pleural effusion
- On POCUS- right sided moderate pleural effusion
- Suspect for sepsis site with Bc strep. pyogenes- empyema?
- thoracentesis was performed 09/06. a total of 660 mL of serosanguineous fluid was collected
- Acid Fast Bacilli and Fluid Cx - neg prelim
- Per Light's Criteria PF/Serum Protein= 0.58= exudative, PF/Serum LDH=0.517=does not meet criteria
- Meets 1 Lights criteria - exudative, gross look of serosanginous fluid 2/2 ? infection, ? malignancy, ? pseudoexudative 2/2 home lasix - await pathology results
- Pro BNP >96416 , transudative 2/2 HF?
- Trace Left Pleural effusion developing - discontinue IV fluid, 10mg Lasix IV QD
H/o Breast Cancer with brain lesions, metastasis vs embolic stroke
CT scan of head
At least 3 cm focus of decreased attenuation centered about the right sylvian fissure which could represent an intracranial mass with edema such as metastatic disease.
Subacute to chronic infarct cannot be differentiated on this CT without intravenous contrast.
Recommend Brain MRI without and with contrast for more complete evaluation.
Brain MRI w/wo contrast
There is no MR evidence for intracranial metastatic disease
There are small foci of acute to subacute infarct involving both occipital lobes
Focal region of abnormal restricted diffusion involving the choroid plexus within the atria of the right lateral ventricle.
Given the findings in the occipital lobe, this is suspicious for a focus of acute to subacute infarct involving the choroid plexus, although can also be seen with choroid plexus xanthogranuloma
Focal area of encephalomalacia involving the inferior right frontal and superior right temporal lobe, in the region of the insula. There is a region of abnormal diffusion extending superiorly and anteriorly to the region of encephalomalacia, and
signal abnormality extends appears increased compared to previous MRI in June 2021.
Findings would suggest focal area of acute to subacute infarct in the right frontal lobe, superior to the region of encephalomalacia
Carotid US- Minimal calcified carotid bulb plaque on each side, measurements suggestive of less than 50% stenosis on each side
-last Tx was in October
-follows with Dr Amaral, recently received outpt IV iron infusions for anemia
-Consulted Neurology, input appreciated
-posterior circulation areas of ischemia which are suggestive of embolic stroke in bilateral occipital lobes
-Provide with AC, risk of hemorrhagic conversion of small posterior lesions unlikely. Avoid bolus IV heparin
-DAVE today 09/07 - No evidence of cardioembolic source of stroke, no evidence for endocarditis
Dysarthria
Dysphagia
-likely 2/2 acute/subacute infarcts in bl occipital lobes, choroid plexus, and extension of previous right frontal lobe infarct
-New Speech eval - thin liquids only until VSE completed
-VSE today
- Fluoroscopic evidence of laryngeal penetration and aspiration was demonstrated.
- Vallecular residue noted throughout study with all barium consistencies.
- Brief fluoroscopy of the thoracic esophagus did not demonstrate any residue
-NPO was recommended, Pt and her Silvino stated wanting to continue her diet full liquids - understanding the risk of aspiration. Risks from aspiration and her DNI, DNR status were discussed with them.
Acute on CKD stage III
-likely pre-renal poor oral intake nausea vomiting
-IVF support- DC
-avoid nephrotoxins, prn Toradol discontinued
-monitor renal function
Mechanical Aortic Valve Replacement on Coumadin
HFpEF (recent ECHO EF 55-60%)
ASCVD
Prior [place], CVA with L sided weakness.
-AC was held in view of acute drop in Hb and concern for brain emboli with bacteremia
-Continue heparin ggt per elderly caregiver, monitor APTT - Discontinued IV heparin on 09/07/2025
-Repeat Lasix 20mg IV x 1 on 09/07 then switch to 20mg Lasix PO QD
-Resume Metoprolol 25mg PO BID
-therapeutic INR 2.5-3
-INR 1.65 Start 2.5mg Coumadin tonight. Start Heparin ggt
-Follow Daily INR, APTT
TTE
1. Compared to a prior transthoracic echocardiogram study from 07/25/2025 no significant changes are seen.
2. Left ventricle is small in size. Mild concentric left ventricular hypertrophy. Preserved left ventricular systolic function. Left ventricular ejection fraction is 55-60% by visual estimate.
3. Well seated mechanical aortic valve replacement. Peak/mean gradients across the aortic valve are 7/4 mmHg respectively. No aortic regurgitation.
4. Moderate tricuspid regurgitation. Estimated pulmonary artery pressure of 39 mmHg assuming a right atrial pressure of 3 mmHg.
5. Thickened calcified mitral valve leaflets with adequate excursion. Dense mitral annular calcification. There is at least mild to moderate mitral regurgitation which may have been underestimated due to mitral annular calcification.
Acute on Chronic Left Hip Pain
-left hip greater trochanteric bursitis and gluteal tendinitis, follows Dr Caban
-Hip X-ray appreciated no acute fracture or dislocation
-Orthopedic eval appreciated steroid injection given 09/04/25- ice and tylenol prn
-PT/OT eval - acute rehab
-PMR consult, input appreciated - subacute rehab
Anxiety
-0.25mg Ativan Q6H
Hypothyroidism
-Levothyroxine 88mcg PO QD - on hold due to NPO for meds status #D2
-For IV levothyroxine policy is to wait 3 days NPO before starting IV dose. IV dose is 75% of PO so reduce 88mcg PO to 66mcg IV QD on 09/13
-Last PO levothyroxine was on 09/09
Electrolyte abnormality
-hypocalcemia- repleted
Constipation
-Senokot-S , Miralax prn
-resolved
Pulmonary HTN
- RHC 10/2024, mPA 41, PCWP 22 with CI 2.5, PVR 5.8.
- Group II with h/o AVR, elevated PCWP. Also elevated PVR suggestive of concomitant pre-capillary Pulmonary HTN
Malnutrition
-Likely Severe Protien Calorie Malnutrition vs cachexia
-Consult Dietary RN
-BMI 16.8
DVT ppx SCD
DNR as per POA Uziel
Dispo: subacute rehab
Anticipated Discharge: > 48 hours
Subjective/Interval History
-
Date of Service: September 11, 2025
She is agitated. She asks to her to take her home. When I ask what she means? she does not want to talk. She has a sore throat. She denies palpitations, chest pain, abdominal pain.
Objective Data
-
Labs:
Laboratory Results
09/11/25
04:28
PT 19.7 H
INR 1.65 D
Vital Signs:
Vital Signs
Temp Pulse Resp BP Pulse Ox
97.5 F 90 12 130/49 98
09/11/25 07:00 09/11/25 07:00 09/11/25 07:00 09/11/25 07:00 09/11/25 07:00
I&O
09/10/25 09/11/25 09/12/25
06:59 06:59 06:59
Intake Total 480 / 480 600 / 600
Balance 480 / 480 600 / 600
Review of Systems
-
History Source: Patient
Constitutional: Reports No Symptoms and Weakness (left leg)
EENT: Reports Sore Throat
Respiratory: Reports No Symptoms
Cardiac: Reports No Symptoms
Abdomen/GI: Reports No Symptoms
Breast: Reports No Symptoms
Genitourinary: Reports No Symptoms
Skin: Reports No Symptoms
Neuro: Reports No Symptoms
Endocrine: Reports No Symptoms
Allergy / Immunology: Reports No Symptoms
Psych: Reports Anxious
Physical Exam
-
General: Well Developed, Appears in Distress, Conversant, Appears Chronically Ill and Cachectic
HEENT: Normocephalic, Atraumatic and Thrush
Respiratory: Clear to Auscultation
Cardiac: Regular Rhythm and S1/S2
Breast: Deferred by me
GI: Soft, Nontender, Nondistended and Normal Bowel Sounds
Rectal: Deferred by Provider
Musculoskeletal: No Clubbing, No Cyanosis and No Edema
Skin: Warm and Dry
Neuro: AO x 3 and Other (extraocular movements abnormal, eye not following directions)
Psych: Anxious
[2025-09-11] MEDS: PROTONIX IV 40 MG IV ×2 (09:05→20:42)
[2025-09-11] MEDS: NSS (PRESERVATIVE FREE) 10 ML IV ×2 (09:05→20:43)
[2025-09-11] MEDS: MYCOSTATIN ORAL SUSPENSION 5 ML PO ×2 (09:05→12:53)
[2025-09-11] MEDS: LOPRESSOR 25 MG PO (09:05)
--- NOTE | 2025-09-11 09:05 | W.PN.CARDCBS ---
Today's Communication / Plan
-
P.o. metoprolol
IV hydralazine
Goal INR 2.5�3.0 for mechanical aortic valve
Anxiety treatment
Swallowing evaluation
Once taking reliable p.o.'s could switch to p.o. amlodipine for hypertension control
Impression / Plan
-
PCP: Dr. Haynes
Cardiology: Dr. Aramis Resendez
Oncology: Dr. Amaral
Impression:
Admitted 09/04/2025 with left hip pain
TME
Septic shock requiring pressors
Group A Streptococcus bacteremia
Suspected pneumonia
Right pleural effusion
s/p right thoracentesis for 660 mL of blood tinged fluid
Dysphagia, dysarthria likely secondary to acute/subacute infarcts in bilateral occipital lobes, choroid plexus, and extension of previous right frontal lobe infarct
Left hip pain/trochanteric bursitis/gluteus tendinitis s/p left hip injection x 2 as outpatient
h/o recurrent GIB (05/02/25 until 05/05/25, readmitted 05/06/25)
Chronic warfarin OAC managed by [facility] cardiology
h/o CVA
h/o CVA 2005
h/o right MCA stroke with M2 occlusion in setting of subtherapeutic INR while off Coumadin 07/15/21
patient bridged with Lovenox prior to colonoscopy 07/10/21, but no Lovenox bridge post-colonoscopy
Mechanical AVR pediatric size 2006
Mitral regurgitation with mitral stenosis
Tricuspid regurgitation with pulmonary hypertension
h/o Hodgkin's lymphoma treated with radiation to left neck and pelvis 1973
h/o breast CA
2018 treated with B/L mastectomy, patient refused chemotherapy and radiation, but eventually agreeable to Tamoxifen
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
Recurrence of breast cancer 2021 - did not tolerate Ibrance or Ribociclib
Labile HTN
Hypothyroidism
Chronic HFpEF
CAD with 60 to 70% ostial to proximal LM stenosis, 100% [employer] proximal RCA with [id number] collaterals by cardiac cath 10/28/2024
LHC 10/28/2024: Eccentric 60-70% ostial to proximal Left main, difficult to advance IVUS catheter. iFR positive at 0.76. Elevated filling pressures, normal cardiac output/index, occluded right coronary artery with brisk collater, Nonobstructive plaque
of LAD and circumflex, pulmonary artery pressure 62/26, pulmonary capillary wedge pressure is 22, right atrial pressure is 11, cardiac index is 2.5
Echo 08/26/2022: Hyperdynamic LV.� EF 70 to 75%.� Mild to moderate MS peak/mean gradient 20/7 mmHg.� Moderate to severe MR.� Well-seated mechanical AVR with peak/mean gradient 11/6 mmHg without regurgitation.� Moderate to severe TR.� Moderate
pulmonary hypertension with PAP 50 to 55 mmHg.
Echo 02/10/2023: EF 60 to 65%.� Moderate mitral stenosis mean gradient 11 with severe MR.� Well-seated mechanical AVR with peak/mean gradient 15/8 mmHg, mild to moderate TR, mild pulmonary hypertension with PAP 45 to 48 mmHg.
Echo 11/19/2023: EF 70-75%, moderate MS with peak/mean gradients 15/8 mmHg, moderate MR, mechanical prosthetic AVR with peak/mean gradients 16/9 mmHg, trace AR, moderate TR, estimated PAP 30-35 mmHg
Echo 10/25/24: EF 55-60%, moderate mitral stenosis with mean gradient of 8 mmHg, mild to moderate MR, mechanical AVR with mean gradient of 10, no AI, mild to moderate TR with PA pressure 40-45
Echo 09/05/2025: EF 55 to 60%. Mild LVH. Mildly dilated LA and RA. Mild to moderate mitral regurgitation. Well-seated mechanical aortic valve peak/mean gradient 7/4 mmHg. No AI. Moderate TR with PAP 39 mmHg.
MRI brain 09/05/25: There is no MR evidence for intracranial metastatic disease. There are small foci of acute to subacute infarct involving both occipital lobes as described. Focal region of abnormal restricted diffusion involving the choroid
plexus within the atria of the right lateral ventricle. Given the findings in the occipital lobe, this is suspicious for a focus of acute to subacute infarct involving the choroid plexus, although can also be seen with choroid plexus
xanthogranuloma. Focal area of encephalomalacia involving the inferior right frontal and superior right temporal lobe, in the region of the insula. There is a region of abnormal diffusion extending superiorly and anteriorly to the region of
encephalomalacia, and signal abnormality extends appears increased compared to previous MRI in June 2021. Findings would suggest focal area of acute to subacute infarct in the right frontal lobe, superior to the region of encephalomalacia.
-Carotid ultrasound 09/05/25: Minimal calcified carotid bulb plaque on each side, measurements suggestive of less than 50% stenosis on each side.
Plan:
-Admitted 09/04/2025 with left hip pain then developed acute altered mental status and slurred speech and was found to have septic shock requiring pressors which have been weaned.
-Continues on IV abx for group A strep bacteremia.
-Found to have new acute to subacute strokes involving posterior circulation and in bilateral occipital lobe suggestive of embolic source on MRI.
-DAVE 09/07/25 with no evidence of valvular vegetation to suggest infective endocarditis. No evidence of left atrial appendage thrombus.
-Noted to go into rapid atrial fibrillation earlier this admission. Can use diltiazem drip for heart rate control as needed. I am supportive of higher dose metoprolol 50 mg twice daily to control heart rate and blood pressure. It appears that she
is ordered for 25 mg twice daily
-She did have ~4 second pause noted on telemetry at 5 AM 09/09/2025, but no further pauses noted.
- No further pauses on telemetry
-Patient has history of pediatric mechanical aortic valve maintained on Coumadin as outpatient with goal INR 2.5-3.0.
- Goal INR 2.5�3.0 and warfarin had been on hold for markedly elevated INR. Continue warfarin when her INR is in therapeutic range or dips below therapeutic range
- No plan for pacemaker at this time
-For her hypertension can utilize IV hydralazine until she is taking p.o. medications. Could consider medication such as amlodipine when she is taking p.o.'s reliably although she is still having issues with swallowing
Progress Note - Estate Planning Paralegal
Subjective
Date of Service: September 11, 2025
Still having difficulty swallowing
Objective
Labs:
Labs
Hgb 13.0 g/dL (12.0-16.0) 09/10/25 03:49
Hct 38.4 % (37.0-47.0) 09/10/25 03:49
Plt Count 188 10^3/uL (130-400) 09/10/25 03:49
PT 19.7 Sec (11.4-14.6) H 09/11/25 04:28
INR 1.65 D 09/11/25 04:28
APTT 53.5 Sec (23.4-35.0) H 09/08/25 04:57
Sodium 148 mmol/L (135-145) H 09/10/25 03:49
Potassium 4.2 mmol/L (3.5-5.1) 09/10/25 03:49
BUN 77 mg/dl (7-17) H 09/10/25 03:49
Creatinine 1.1 mg/dL (0.6-1.0) H 09/10/25 03:49
Glucose 161 mg/dl (70-99) H 09/10/25 03:49
Troponins
09/08/25
21:19
Troponin I 1.050 H*
Vital Signs and I&O:
Vital Signs
Temp Pulse Resp BP Pulse Ox
97.5 F 90 12 130/49 98
09/11/25 07:00 09/11/25 07:00 09/11/25 07:00 09/11/25 07:00 09/11/25 07:00
Vital Signs
Temp Pulse Resp BP Pulse Ox
97.5 F 90 12 130/49 98
09/11/25 07:00 09/11/25 07:00 09/11/25 07:00 09/11/25 07:00 09/11/25 07:00
Intake & Output
09/09/25 09/10/25 09/11/25 09/12/25
06:59 06:59 06:59 06:59
Intake Total 420 / 420 480 / 480 600 / 600
Output Total 275 / 275
Balance 145 / 145 480 / 480 600 / 600
Physical Exam
Physical Exam
����Physical Exam
���������������������General:��no apparent distress, not acutely ill
���������������������������Neck:��supple. no meningeal signs. normal psoterior pharynx
������������������������
���������������������������Heart:��s1/s2 regular rate and rhythm, no murmur. equal radial pulses.
Telemetry reviewed
��������������������������Lungs: ��no acute respiratory distress. clear bilaterally
����������������������Abdomen:�normal bowel sounds. not tender. no CVAT
��������������������������Neuro:��alert and oriented. no focal neurological deficits
������������������������������Skin: ��no rash
�����������������������Psychiatric:�well kept. interactive and cooperative
�����������������������Extremities:��no edema. no calf tenderness. negative homans. good distal pulses
��
�
[2025-09-11] MEDS: FLUSH (NSS) 2 FLUSH IV (09:06)
--- NOTE | 2025-09-11 10:43 | W.PN.ID1 ---
Addendum entered and electronically signed by Katty Quinn MD 09/11/25 11:59:
Pt refusing po's.
Change amox/clav back to ceftriaxone IV.
Original Note:
Date of Service
Date of Service: September 11, 2025
Today's Communication
Transition ceftriaxone (d7) to amox/clav suspension 500 mg bid through 09/17.
Assessment / Plan
# Group A streptococcus bacteremia, suspect lung source
# Multiple acute/subacute CVA; DAVE no source of embolic CVA
# Dysphagia/Aspiration PNA
# Leukocytosis - improving
#s/p Septic shock
# Fever resolved
# Left hip pain/trochanteric bursitis/gluteus tendinitis s/p left hip injection x 2
# Gastroparesis
# Severe protein-calorie malnutrition
# Hx Splenectomy
# Stage 3 breast ca (declined further tx)
# Mechanical AVR - DAVE neg vege
- with recent Group A strep pharyngitis
Swab pt's throat negative rapid strep, neg cx
- Repeat blood cx's x 2 negative
- DAVE: no vegetation
- Right pleural effusion s/p thora 660cc serosanguineous fluid; exudative, cx negative
- Aspiration precaution
- Transition ceftriaxone (d7) to amox/clav suspension 500 mg bid through 09/18.
Pt PCN allergy, but tolerated amoxicillin in the past.
Chief Complaint
-: Clinical Sepsis and Bacteremia
Subjective / Review of Systems
at bedside.
Appetite remains poor.
Vital Signs / Physical Exam
Vital Signs
Vital Signs
Temp Pulse Resp BP Pulse Ox
97.5 F 90 12 130/49 94
09/11/25 07:00 09/11/25 09:05 09/11/25 07:00 09/11/25 09:05 09/11/25 10:18
Physical Exam
Constitutional: Chronically Ill and Cachetic
Eyes: No Conjunctival Hemorrhage
Cardiovascular: Irregular Rate (tachycardic)
Pulmonary: Rales (bases)
Gastrointestinal: Soft, Non Tender and Non Distended
Extremities: Negative Edema
Neurological: Awake
Objective Data
Lab Data
PT 19.7 Sec (11.4-14.6) H 09/11/25 04:28
INR 1.65 D 09/11/25 04:28
APTT 53.5 Sec (23.4-35.0) H 09/08/25 04:57
Estimated Creat Clear 29 ml/min 09/10/25 03:49
Lactic Acid 1.9 mmol/L (0.7-2.0) 09/05/25 21:46
Total Bilirubin 0.7 mg/dl (0.2-1.3) 09/07/25 03:19
AST 34 U/L (14-36) 09/07/25 03:19
ALT 16 U/L (0-35) 09/07/25 03:19
Alkaline Phosphatase 103 U/L (38-126) 09/07/25 03:19
Most recent labs reviewed.
Micro Results:
09/06/25 04:18 Blood Culture - Final
Blood/Venous No Growth - Final Report
09/05/25 14:28 Blood Culture - Final
Blood/Venous No Growth - Final Report
09/04/25 02:50 Blood Culture - Final
Blood/Venous Streptococcus pyogenes
Gram Stain - Final
09/04/25 02:50 Blood Culture - Final
Blood/Venous Streptococcus pyogenes
Gram Stain - Final
09/06/25 11:09 Body Fluid Culture - Final
Pleural Fluid No Growth After 72 Hours
Gram Stain - Final
09/06/25 11:09 Acid Fast Bacilli Smear - Preliminary
Pleural Fluid Acid Fast Bacilli Culture - Preliminary
09/05/25 13:59 Streptococcus Screen (VANDANA) - Final
Throat/Pharynx No Beta Hemolytic Streptococci Isolated
Streptococcus Rapid Screen - Final
Rapid Strep Screen (Group A) Negative
09/05/25 13:59 Throat Culture - Final
Throat/Pharynx Usual Respiratory Tawnya
09/04/25 02:51 Urine Culture - Final
Urine NO GROWTH
09/11/25 CXR: There is improved aeration of the right lung with a tiny right-sided pleural effusion. No pneumothorax.
09/08/25 CXR: Small to moderate right pleural effusion with associated atelectasis and/or pneumonia, progressed. Small left pleural effusion with associated atelectasis and/or pneumonia, slightly improved. Suspect mild CHF.
09/06/25 CXR: Interval increase in opacification of the right lower lung, most likely atelectasis. Evidence for small to moderate right pleural effusion including lateral loculation. Small left pleural effusion. Parenchymal opacity within the left
lower lung, mainly medially, with differential considerations of atelectasis and/or pneumonia.
11/05/24 Brain MRI: There are small foci of acute to subacute infarct involving both occipital lobes; suspicious for a focus of acute to subacute infarct involving the choroid plexus, although can also be seen with choroid plexus xanthogranuloma.
Findings would suggest focal area of acute to subacute infarct in the right frontal lobe, superior to the region of encephalomalacia.
09/04/25 CXR: The lungs are clear.
09/04/25 CT a/P: Markedly limited CT of the abdomen and pelvis as a result of numerous factors,
09/04/[address]: At least 3 cm focus of decreased attenuation centered about the right sylvian fissure which could represent an intracranial mass with edema such as metastatic disease. Subacute to chronic infarct cannot be differentiated on this CT
without intravenous contrast. Recommend Brain MRI without and with contrast for more complete evaluation.
09/04/25 L HIP XRAY:No acute fracture or dislocation. The hip joint space is maintained. Gluteus medius calcific tendinosis.
08/17/25 outside MRI wo contrast left hip report: ' There is evidence of a tear of the distal gluteus minimus muscle and tendon at the level of the greater trochanter with evidence of peritrochanteric edema and fluid. Incidental inguinal lymph
nodes are noted bilaterally.
Care Review
Plan reviewed with: Nurse
[2025-09-11 11:09] LABS: Hematocrit 41.7 % (37.0-47.0); Hemoglobin 13.7 g/dL (12.0-16.0); Mean Corp Hgb Conc. 32.9 g/dL (33.0-37.0); Mean Corpuscular Volume 84.9 fL (81.0-99.0); Platelet Count 221 10^3/uL (130-400); Red Cell Dist. Width 20.8 % (11.5-14.5)
[2025-09-11 11:21] LABS: APTT 26.6 Sec (23.4-35.0)
[2025-09-11 11:42] LABS: Blood Urea Nitrogen 74 mg/dl (7-17); Calcium 9.6 mg/dl (8.4-10.2); Carbon Dioxide 25 mmol/L (22-30); Chloride 119 mmol/L (98-107); Estimated Creatinine Clearance 27 ml/min; Glucose 134 mg/dl (70-99); Potassium 4.0 mmol/L (3.5-5.1); Sodium 153 mmol/L (135-145); eGFR 53.72
[2025-09-11] MEDS: FLUSH (NSS) IV (12:28)
[2025-09-11] MEDS: STERILE WATER FOR INJECTION 20 ML IV (12:50)
[2025-09-11] MEDS: ROCEPHIN 2000 MG IV (12:50)
[2025-09-11] MEDS: LASIX 10 MG IV (12:51)
[2025-09-11] MEDS: HEPARIN 25000 UNITS/250 ML IV (12:55)
--- NOTE | 2025-09-11 13:41 | W.PN.PUL3 ---
Today's Communication / Plan
-
- No recommendation of pleural effusion noted
- Pulmonary service will sign off, please call as needed
Assessment
-
Patient
Is a 69-year-old female who was admitted to the hospital on 09/04 with chief complaint of left hip pain. Patient had a hip x-ray performed on admission which was unrevealing without any evidence of fracture. Patient has a complex medical history
with prior history of Hodgkin's lymphoma treated with radiation, breast cancer, aortic stenosis s/p mechanical valve replacement on chronic Coumadin therapy as well as multiple episodes of GI bleed with unrevealing EGD and colonoscopy with concern
for small bowel AVMs. Patient has had blood transfusions in the past for anemia. Reportedly patient developed left pain on the hip area, couple of days prior to admission which has been steadily worsening. Patient was evaluated by orthopedic
surgery as outpatient and had a localized steroid injection about 10 days ago for suspected left hip greater trochanteric bursitis and gluteal tendinitis. Patient had another injection of Kenalog 40 mg along with lidocaine on 09/04. Patient
reports improved pain since. In view of recurrence of pain she presented to the emergency room.
Hospital course was complicated by increased lethargy, disorientation and altered mental status which prompted a CT head which was suggestive of a mass with edema suspicious for metastasis versus old stroke. Patient also noted to have elevated
lactate and subsequently positive blood cultures with Streptococcus pyogenes. In view of septic shock and altered mental status, patient had a rapid response event called and was transferred to ICU for further management. Military Technician consultation
was requested for further input.
Septic shock with lactic acidosis due to Group A Strep bacteremia
Anemia-acute blood loss
Right pleural effusion status post thoracentesis--660 mL liter serosanguineous fluid
[place]
Metabolic encephalopathy with brain lesions metastatic versus old CVA
Pulmonary hypertension
Status post AVR
Heart failure preserved EF
Plan
Respiratory status improved, currently doing well on room air. Denies PND or orthopnea. No significant cough reported.
Continue incentive spirometry
Aspiration precautions
Follow-up chest x-ray on 09/11, no residual pleural effusion. Continued improvement. Saturating well on room air.
Pleural fluid cultures negative so far.
Infectious disease following
Antibiotics per infectious disease-ceftriaxone 2 g every 24
DAVE without evidence for vegetation
Pressors weaned
Lactate trended down
Cardiology following-correspondence reviewed
DAVE negative
Chronic Coumadin for AVR-mechanical valve
Group 2 pulmonary hypertension
DVT prophylaxis-on Coumadin
GI prophylaxis-on pantoprazole
Nutrition
Early mobilization/physical therapy
Subjective Data
-
Date of Service:
Date of Service: September 11, 2025
Chief Complaint: Pulmonary Follow Up and Dyspnea Follow Up
Subjective:
Comfortably sitting in chair in no acute distress. Saturating well on room air
Review of Systems
Genitourinary: Other (No new respiratory symptoms)
Objective Data
Data Reviewed
Vital Signs / I&O / Oxygen:
Vital Signs
Temp Pulse Resp BP Pulse Ox
98.4 F 93 12 164/64 94
09/11/25 11:00 09/11/25 12:51 09/11/25 11:00 09/11/25 12:51 09/11/25 11:00
Intake and Output
09/10/25 09/11/25 09/12/25
06:59 06:59 06:59
Intake Total 480 / 480 600 / 600
Balance 480 / 480 600 / 600
SaO2 94
Nasal Cannula flow liters per 2
minute
Physical Exam
General: Respiratory Distress (n) and Comfortable
HEENT: Normocephalic, Anicteric and Moist Mucous Membranes
Cardiovascular: Regular Rhythm
Respiratory: Crackles (None), Rhonchi (NOne), Non-Labored Respirations, Accessory Resp Muscle Use (n) and Stridor (n)
GI: Soft and Non Distended
Neurology: Awake, Alert and No Motor Deficits
Skin: Warm, Good Color, Cyanosis (n) and Jaundice (n)
Labs/Micro/Reports
Lab Data
09/11/25 11:01
09/11/25 11:01
Laboratory Results
09/11/25 09/11/25
04:28 11:01
PT 19.7 H
INR 1.65 D
APTT 26.6
Microbiology
09/06/25 04:18 Blood/Venous Blood Culture - Final
No Growth - Final Report
09/05/25 14:28 Blood/Venous Blood Culture - Final
No Growth - Final Report
09/04/25 02:50 Blood/Venous Blood Culture - Final
Streptococcus pyogenes
09/04/25 02:50 Blood/Venous Gram Stain - Final
09/04/25 02:50 Blood/Venous Blood Culture - Final
Streptococcus pyogenes
09/04/25 02:50 Blood/Venous Gram Stain - Final
09/06/25 11:09 Pleural Fluid Body Fluid Culture - Final
No Growth After 72 Hours
09/06/25 11:09 Pleural Fluid Gram Stain - Final
09/06/25 11:09 Pleural Fluid Acid Fast Bacilli Smear - Preliminary
09/06/25 11:09 Pleural Fluid Acid Fast Bacilli Culture - Preliminary
[2025-09-11] MEDS: DUONEB 3 ML INH ×2 (15:43→19:46)
[2025-09-11] MEDS: D5W 1000 IV (16:39)
[2025-09-11] MEDS: MYCOSTATIN ORAL SUSPENSION PO ×3 (18:07→21:13)
--- NOTE | 2025-09-11 18:11 | PTCARENOTE ---
Pt's HR sustaining low 100s to 115 when pt in the chair around 1630, Sinus Tachycardia, asymptomatic. Made Dr. Romo aware. Cardizem drip turned off per orders at 1435. See new orders for Lopressor 5mg IV PRN for sustained HR >110. Also,
made Dr. Romo aware that pt and her are asking to try soft bite food. Continued to educate the pt and her on the aspiration risk even with the liquids. Dr. Romo indicated that they will discuss again tomorrow with
family. Updated pt and family on plan.
[2025-09-11 19:17] LABS: APTT 31.4 Sec (23.4-35.0)
[2025-09-11] MEDS: PULMICORT 0.5 MG INH (19:46)
[2025-09-11] MEDS: SODIUM CHLORIDE 3% FOR INHALATION 1 VIAL INH (19:50)
[2025-09-11] MEDS: COUMADIN 2 MG PO (20:43)
[2025-09-11] MEDS: LOPRESSOR 50 MG PO (20:44)
[2025-09-12] VITALS (7 sets, daily range): BP systolic 115–161; BP diastolic 60–81; PULSE 85; O2SAT 97; BMI 16.4
[2025-09-12] MEDS: ROBITUSSIN PO ×7 (00:44→23:38)
[2025-09-12] MEDS: APRESOLINE 5 MG IV ×5 (00:49→23:38)
[2025-09-12 03:44] LABS: APTT 34.9 Sec (23.4-35.0)
[2025-09-12 05:42] LABS: Hematocrit 37.0 % (37.0-47.0); Hemoglobin 12.6 g/dL (12.0-16.0); Mean Corp Hgb Conc. 34.1 g/dL (33.0-37.0); Mean Corpuscular Volume 84.3 fL (81.0-99.0); Platelet Count 223 10^3/uL (130-400); Red Cell Dist. Width 20.3 % (11.5-14.5)
[2025-09-12 05:48] LABS: INR 1.31; PT 16.6 Sec (11.4-14.6)
[2025-09-12 06:03] LABS: ALT (SGPT) 20 U/L (0-35); AST (SGOT) 20 U/L (14-36); Albumin 2.8 g/dl (3.5-5.0); Alkaline Phosphatase 122 U/L (38-126); Blood Urea Nitrogen 70 mg/dl (7-17); Calcium 8.8 mg/dl (8.4-10.2); Carbon Dioxide 24 mmol/L (22-30); Chloride 115 mmol/L (98-107); Estimated Creatinine Clearance 27 ml/min; Glucose 141 mg/dl (70-99); Magnesium 2.4 mg/dl (1.6-2.3); Potassium 4.0 mmol/L (3.5-5.1); Sodium 147 mmol/L (135-145); Total Protein 6.6 g/dl (6.3-8.2); eGFR 53.72
[2025-09-12 06:16] LABS: Troponin I 0.526 ng/ml
--- NOTE | 2025-09-12 07:08 | W.PN.HOSP.TC ---
Addendum entered and electronically signed by Randall Castañeda MD 09/13/25 13:01:
o��� Non-ischemic myocardial injury
Addendum entered and electronically signed by Randall Castaeñda MD 09/12/25 14:41:
Attending�addendum:
I saw and evaluated the patient independently. I reviewed and discussed the resident�s note and agree with findings and plan as documented in the resident�s note.� patient seen and examined at bedside, at bedside.
Patient now agreeable for PEG.
Physical�exam:
GENERAL : Patient is awake, looks tired, cachectic
HEENT: Nonicteric sclerae, PERRLA, EOMI. Oropharynx clear. Moist mucous membranes. Conjunctivae appear well perfused.
CHEST: Chest wall is nontender.
HEART: Regular rate and rhythm without murmurs.
LUNGS: Clear to auscultation bilaterally.
ABDOMEN: Soft, positive bowel sounds, nontender, no organomegaly.
RECTAL: Deferred.
MUSCLES/EXTREMITIES: No abnormal range of motion, no swelling.SKIN: No rash, no excessive bruising, petechiae, or purpura.
NEUROLOGIC: Awake
�
Assessment/plan:
Septic shock.
Bacteremia.
Continue antibiotics as per ID.
May switch to oral antibiotics once PEG tube
Acute metabolic encephalopathy.
Improved
New onset A-fib.
Continue heparin drip, metoprolol
Severe protein calorie malnutrition.
Dysphagia.
GI consulted for PEG tube
CODE STATUS:DNR
DVT prophylaxis: heparin drip
Diet: N.p.o.
Family communication: Discussed with at bedside
Disposition: PEG tube tomorrow
�
Total time spent on today�s encounter was 60 minutes which included time spent in counseling the patient/family regarding diagnosis and treatment plan as listed above, goals of care, and symptom management. Case was discussed with nursing staff,
specialists, and care coordinators/case management. All labs and imaging personally reviewed by me. Remainder the time spent in detailed review of previous records, lab data, imaging, and other medical provider documentation.
Original Note:
Today's Communication/Plan
-
PEG tube placement tomorrow
Hold heparin ggt 4 hours prior to PEG tube placement
NPO after midnight
Continue ab's
Continue D5W
Assessment / Plan
Assessment / Plan
09/04/25 Rapid Response Deteriorating Mental Status 2/2 Developing Severe Sepsis (Leukocytosis, Fever, end organ damage [place])
Acute Metabolic Encephalopathy
Septic shock from GAS with bacteremia
-After study, Sepsis due to Bacteremia with organ dysfunction of hypotension was present on admission
-Medical Operations Supervisor consult, input appreciated
-Transferring from ICU to telemetry
-Septic shock Levophed on hold improving BP. Goal MAP>65
-Blood Cx's drawn in ED, Strep Pyogenes (+)
-ID consult, input appreciated
-Started on Renally dose Cefazolin per discussion with ID- Replace Cefazolin with Ceftriaxone #D8 - When able to take PO transition to cephalexin 500mg PO TID till 09/18/2025
-Pt's + for Strep throat. Repeat blood C's x2- No growth
-Throat Cx Group B strep - negative
-Rapid strep for GAS-negative
-IVF with D5W
-Pleural fluid Cx- neg
-PMR consult, input appreciated - subacute rehab
-productive mucous , suction of throat - dc
-Follow temp- tylenol prn
-Follow vitals
CT head scan 09/11/2025 for altered mental status
-There is evolving known infarction and chronic encephalomalacia within the lateral right frontal lobe.
-The known recent prior bilateral occipital infarcts are not well visualized on this examination.
-There is no evidence of acute intracranial hemorrhage
Chest Xray 09/11/2025 for residual pleural effusion
-There is improved aeration of the right lung with a tiny right-sided pleural effusion. No pneumothorax.
Chest Xray 09/08/25
-Small to moderate right pleural effusion with associated atelectasis and/or pneumonia, progressed
-Small left pleural effusion with associated atelectasis and/or pneumonia, slightly improved
-Suspect mild CHF
New Atrial fibrillation
- Overnight she had HR >150's irregular, BP 135/53 98.2, 22 95% 2l , EKG Afib with RVR, no hx of Afib noted
- Received Metoprolol, Cardizem
- Troponin 1.050
- Afib likely due to ? aspiration ? pleural effusion? hypovolumic?
- CHADSVASC score 7
- Consult cardiology, input appreciated
--Increase Toprol to 50mg BID for rate control, she is on NPO for meds - continue trial of metoprolol BID per cards
--Cardizem 5ml/h, Attempt to wean carzidem ggt - D/C HR<110
--Add 5mg Lopressor prn Q6h for sustained HR>110
--Not PPM candidate at present given coagulopathy as well as bacteremia / sepsis
--Monitor HR
Malnutrition
-Likely Severe Protien Calorie Malnutrition vs cachexia
-Consult Dietary RN
-pt weighted 56kg now 35.5, BMI 16.4
-Pt and Silvino want to proceed with PEG tube placement for progressive weight loss.
-Consult GI, input appreciated
-PEG tube placement tomorrow - Hx of gastroparesis, may have difficulty tolerating PEG tube feeds, if cant tolerate may need to have IR convert that to a GJ tube
-NPO midnight
-Hold 4 hours prior to the PEG placement
-She is currently on ceftriaxone
Hypertensive urgency
- L187/82, R 194/76 - improved
- BP 154/55
- IV hydralazine 5mg Q6h, Hold if SBP <130
Hypernatremia
-Na 151--> D5W 60ml/h--> Na 147-->D5W continue until tm 60ml/h
Nausea and Vomiting
Coffee Ground Emesis vs Bilious Emesis
-Warfarin was on hold at the admission because of possible GI Bleeding exacerbated by Warfarin
-Suspect previous coffee ground material secondary to bilious emesis related to sepsis and known gastroparesis
-Hx of GIB with recent scopes in April
-09/04 NGT placed to suction w/ relief symptoms- Patient had NG tube which was pulled 09/06/2025 with no significant finding of coffee-ground emesis
-CT abd/pelvis w/o contrast limited study noted, possible gastric outlet obstruction vs gastroparesis
-Hb 8.7, received 1PRBC this admission. transfuse if Hgb<8 - Hb 12.6
-Consult GI, input appreciated
-Protonix BID
-Avoid NSAID
-Improved
Pleural effusion
- On POCUS- right sided moderate pleural effusion
- Suspect for sepsis site with Bc strep. pyogenes- empyema?
- thoracentesis was performed 09/06. a total of 660 mL of serosanguineous fluid was collected
- Acid Fast Bacilli and Fluid Cx - neg prelim
- Per Light's Criteria PF/Serum Protein= 0.58= exudative, PF/Serum LDH=0.517=does not meet criteria
- Meets 1 Lights criteria - exudative, gross look of serosanginous fluid 2/2 ? infection, ? malignancy, ? pseudoexudative 2/2 home lasix - await pathology results
- Pro BNP >38777 , transudative 2/2 HF?
- Pleural effusion improved- dc furosemide
H/o Breast Cancer with brain lesions, metastasis vs embolic stroke
CT scan of head
At least 3 cm focus of decreased attenuation centered about the right sylvian fissure which could represent an intracranial mass with edema such as metastatic disease.
Subacute to chronic infarct cannot be differentiated on this CT without intravenous contrast.
Recommend Brain MRI without and with contrast for more complete evaluation.
Brain MRI w/wo contrast
There is no MR evidence for intracranial metastatic disease
There are small foci of acute to subacute infarct involving both occipital lobes
Focal region of abnormal restricted diffusion involving the choroid plexus within the atria of the right lateral ventricle.
Given the findings in the occipital lobe, this is suspicious for a focus of acute to subacute infarct involving the choroid plexus, although can also be seen with choroid plexus xanthogranuloma
Focal area of encephalomalacia involving the inferior right frontal and superior right temporal lobe, in the region of the insula. There is a region of abnormal diffusion extending superiorly and anteriorly to the region of encephalomalacia, and
signal abnormality extends appears increased compared to previous MRI in June 2021.
Findings would suggest focal area of acute to subacute infarct in the right frontal lobe, superior to the region of encephalomalacia
Carotid US- Minimal calcified carotid bulb plaque on each side, measurements suggestive of less than 50% stenosis on each side
-last Tx was in October
-follows with Dr Amaral, recently received outpt IV iron infusions for anemia
-Consulted Neurology, input appreciated
-posterior circulation areas of ischemia which are suggestive of embolic stroke in bilateral occipital lobes
-Provide with AC, risk of hemorrhagic conversion of small posterior lesions unlikely. Avoid bolus IV heparin
-DAVE today 09/07 - No evidence of cardioembolic source of stroke, no evidence for endocarditis
Dysarthria
Dysphagia
-likely 2/2 acute/subacute infarcts in bl occipital lobes, choroid plexus, and extension of previous right frontal lobe infarct
-New Speech eval - NPO
-VSE 09/09/2025
- Fluoroscopic evidence of laryngeal penetration and aspiration was demonstrated.
- Vallecular residue noted throughout study with all barium consistencies.
- Brief fluoroscopy of the thoracic esophagus did not demonstrate any residue
-NPO was recommended, Pt and her Silvino stated wanting to continue her diet full liquids - understanding the risk of aspiration. Risks from aspiration and her DNI, DNR status were discussed with them.
Acute on CKD stage III
-likely pre-renal poor oral intake nausea vomiting
-IVF support
-avoid nephrotoxins, prn Toradol discontinued
-monitor renal function
Mechanical Aortic Valve Replacement on Coumadin
HFpEF (recent ECHO EF 55-60%)
ASCVD
Prior ME, CVA with L sided weakness.
-AC was held in view of acute drop in Hb and concern for brain emboli with bacteremia
-Continue heparin ggt per skein yard drier, monitor APTT - Discontinued IV heparin on 09/07/2025
-Repeat Lasix 20mg IV x 1 on 09/07 then switch to 20mg Lasix PO QD
-Resume Metoprolol 25mg PO BID
-therapeutic INR 2.5-3
-Heparin ggt 09/11, Coumadin 2 mg 09/11 QPM -- INR 1.31
-Follow Daily INR, APTT
TTE
1. Compared to a prior transthoracic echocardiogram study from 07/25/2025 no significant changes are seen.
2. Left ventricle is small in size. Mild concentric left ventricular hypertrophy. Preserved left ventricular systolic function. Left ventricular ejection fraction is 55-60% by visual estimate.
3. Well seated mechanical aortic valve replacement. Peak/mean gradients across the aortic valve are 7/4 mmHg respectively. No aortic regurgitation.
4. Moderate tricuspid regurgitation. Estimated pulmonary artery pressure of 39 mmHg assuming a right atrial pressure of 3 mmHg.
5. Thickened calcified mitral valve leaflets with adequate excursion. Dense mitral annular calcification. There is at least mild to moderate mitral regurgitation which may have been underestimated due to mitral annular calcification.
Acute on Chronic Left Hip Pain
-left hip greater trochanteric bursitis and gluteal tendinitis, follows Dr Caban
-Hip X-ray appreciated no acute fracture or dislocation
-Orthopedic eval appreciated steroid injection given 09/04/25- ice and tylenol prn
-PT/OT eval - acute rehab
-PMR consult, input appreciated - subacute rehab
Anxiety
-0.25mg Ativan Q6H
Hypothyroidism
-Levothyroxine 88mcg PO QD - on hold due to NPO for meds status #D3
-For IV levothyroxine policy is to wait 3 days NPO before starting IV dose. IV dose is 75% of PO so reduce 88mcg PO to 66mcg IV QD on 09/13
-Last PO levothyroxine was on 09/09
Electrolyte abnormality
-hypocalcemia- repleted
Constipation
-Senokot-S , Miralax prn
-resolved
Pulmonary HTN
- RHC 10/2024, mPA 41, PCWP 22 with CI 2.5, PVR 5.8.
- Group II with h/o AVR, elevated PCWP. Also elevated PVR suggestive of concomitant pre-capillary Pulmonary HTN
DVT ppx SCD
DNR as per POA Uziel
Dispo: SNF
Anticipated Discharge: > 48 hours
Subjective/Interval History
-
Date of Service: September 12, 2025
She is more alert than yesterday. She is talkative and agrees to proceed with PEG tube as a last option before Hospice. She was able to eat slowly cream of wheat/rice yesterday. She still has sore throat and her mouth hurts. She denies chest pain,
SOB, palpitations.
Objective Data
-
Labs:
Laboratory Results
09/11/25 09/12/25 09/12/25
18:56 01:52 04:51
WBC 13.5 H
Hgb 12.6
Hct 37.0
Plt Count 223
PT 16.6 H
INR 1.31
APTT 31.4 34.9
Sodium 147 H
Potassium 4.0
Chloride 115 H
Carbon Dioxide 24
BUN 70 H
Creatinine 1.1 H
Glucose 141 H
Calcium 8.8
Total Bilirubin 0.7
AST 20
ALT 20
Alkaline Phosphatase 122
09/12/25
09:55
WBC
Hgb
Hct
Plt Count
PT
INR
APTT Pending
Sodium
Potassium
Chloride
Carbon Dioxide
BUN
Creatinine
Glucose
Calcium
Total Bilirubin
AST
ALT
Alkaline Phosphatase
Vital Signs:
Vital Signs
Temp Pulse Resp BP Pulse Ox
98.6 F 90 15 154/55 98
09/12/25 03:38 09/12/25 06:01 09/12/25 03:38 09/12/25 06:01 09/12/25 03:38
I&O
09/11/25 09/12/25 09/13/25
06:59 06:59 06:59
Intake Total 600 / 600 302 / 302
Output Total 175 / 175
Balance 600 / 600 127 / 127
Review of Systems
-
History Source: Patient
Constitutional: Reports No Symptoms and Weakness (left leg)
EENT: Reports Sore Throat and Mouth Pain
Respiratory: Reports No Symptoms
Cardiac: Reports No Symptoms
Abdomen/GI: Reports No Symptoms
Breast: Reports No Symptoms
Genitourinary: Reports No Symptoms
Skin: Reports No Symptoms
Neuro: Reports No Symptoms
Endocrine: Reports No Symptoms
Allergy / Immunology: Reports No Symptoms
Psych: Reports Anxious
Physical Exam
-
General: Well Developed, Appears in Distress, Conversant, Appears Chronically Ill and Cachectic
HEENT: Normocephalic, Atraumatic and Thrush
Respiratory: Clear to Auscultation
Cardiac: Regular Rhythm, S1/S2 and Other (aortic valve)
Breast: Deferred by me
GI: Soft, Nontender, Nondistended and Normal Bowel Sounds
Rectal: Deferred by Provider
Musculoskeletal: No Clubbing, No Cyanosis and No Edema
Skin: Warm and Dry
Neuro: AO x 3 and Other (extraocular movements abnormal, eye not following directions)
Psych: Anxious
[2025-09-12] MEDS: PULMICORT 0.5 MG INH ×2 (07:47→19:33)
[2025-09-12] MEDS: DUONEB 3 ML INH ×4 (07:47→19:33)
[2025-09-12] MEDS: SODIUM CHLORIDE 3% FOR INHALATION 1 VIAL INH ×2 (07:47→19:33)
[2025-09-12] MEDS: D5W 1000 IV (09:02)
[2025-09-12] MEDS: LASIX 10 MG IV (09:04)
[2025-09-12] MEDS: PROTONIX IV 40 MG IV ×2 (09:04→20:13)
[2025-09-12] MEDS: NSS (PRESERVATIVE FREE) 10 ML IV ×2 (09:04→20:12)
[2025-09-12] MEDS: LOPRESSOR PO ×2 (09:13→19:17)
[2025-09-12] MEDS: MYCOSTATIN ORAL SUSPENSION PO ×3 (09:14→21:14)
--- NOTE | 2025-09-12 09:41 | W.PN.GI.CBS2 ---
Addendum entered and electronically signed by Petra Singh MD 09/12/25 11:46:
I saw and examined the patient.
The FUELER's note was reviewed and I agree with the note.
Comment: Reconsulted for PEG tube placement patient and are now agreeable to proceed with feeding tube for progressive weight loss, oropharyngeal dysphagia, decreased oral intake with failure to thrive, has multiple comorbidities as listed
below and current admission treated for sepsis. had coffee-ground emesis which seems to have resolved. She does have a history of gastroparesis so may have difficulty tolerating tube feeds but will place the PEG tube and may need to have IR convert
that to a GJ tube if unable to tolerate feeds. She is on heparin status post aortic valve replacement will hold for 4 hours prior to the PEG, she is already currently on antibiotics which should cover for the PEG placement.
Original Note:
Today's Communication / Plan
-
asked to see again for nutrition as decreased oral intake with sepsis and concern for CVA
reviewed speech eval with concern for moderate oral and moderate-severe pharyngeal dysphagia
I reviewed spouse, pt was recommended PEG in past with prior swallowing issues and declined at that time
pt weight 56 kg in 2020 now down to 35 kg
HCT repeated 09/11 as noted with evolving infarction and encephalomalacia right frontal lobe
reviewed option of temp DHT( but cannot leave hospital with tube) PEG with risk reviewed (bleeding,infection, perforation, reaction to medication, and does not eliminate risk of aspiration and may be higher risk with hx gastroparesis) vs hospice
I am concern for decline of mental status over last week -- currently very minimal verbal and drifting off
pt and spouse to consider options
remain on heparin Gtt -- was given 1 dose of oral Coumadin 09/11
with prior coffee ground hbg stable 12,600
cont PPI BID
NSAID avoidance
'
I will have Dr. Singh review again with patient and spouse for options and plan for ongoing nutrition
Assessment / Plan
-
Pt is a 69yo with hx multiple medical problems including hodgkin's lymphoma 1969's, prior XRT, breast CA with b/l mastectomy prior [place], hypothyroidism with prior thyroidectomy, splenectomy, HTN, secondary to XRT with mech AVR, MV stenosis, CVA,
CHF, pulm HTN, prior obscure GI bleed, CKD, gastroparesis with admission with left hip pain with difficulty walking with concern for recent gluteal tear. On admission noted with sepsis with step pyogenes bacteremia, CVA, coffee ground emesis with
concern for gastroparesis after Morphine given on admission. Now asked to see for nutrition with wt loss, dysphagia, with chronic swallowing issues now worse since admission and VSE least moderate oral and moderate-severe pharyngeal dysphagia. CT
abdomen on admission with fluid filled stomach gastric outlet of gastroparesis, cannot exclude retroperitoneal/maria isabel hepatitis adenopathy, small to moderate effusion.
Prior GI work up:
05/10/25- colonoscopy Dr. steinberg - Tortuous colon - Changed to an EGD scope to get through safely.- Ileal diverticulum.
- The examination was otherwise normal on direct and retroflexion views.
- No blood found throughout the colon or terminal ileum - No specimens collected.
05/09/[address] Ulloa - Normal esophagus. - Small hiatal hernia.
- Gastritis no old or fresh blood seen - Duodenum normal. Unable to pass through jejunum using colonoscope - No specimens collected.
11/2023- capsule- [place] retained in stomach , consider endoscopic deployment
12/2023- repeat EGD with capsule at [facility]- fresh blood in duodenum and proximal jejunum likely from scope trauma with capsule placement no visible angiectasias, ulcers or masses, more distally appears normal
09/09/25- VSE least moderate oral and moderate-severe pharyngeal dysphagia
1. Goals of care discussions re: nutrition/hydration. Options include: 1) continue full liquid diet with thin liquids understanding risks/complications of possible aspiration vs 2) NPO with non-oral means though this does not eliminate risk of
bottom up aspiration vs 3) combination of oral diet and non-oral means for supplemental nutrition
2. Strategies: small sips, slow rate, multiple swallows, intermittent cough/swallow
3. Non-oral medications
4. Dysphagia tx at the acute care level for education, tx.
09/11/25 HCT
There is evolving known infarction and chronic encephalomalacia within the lateral right frontal lobe. The known recent prior bilateral occipital infarcts are not well visualized on this examination. There is no evidence of acute intracranial
hemorrhage.
-nutritional eval with wt loss, decreased oral intake and abnormal VSE
-VSE with least moderate oral and moderate-severe pharyngeal dysphagia with worsening symptoms over last year
-coffee ground emesis on admission
-anemia
-hx gastroparesis
-CT on admission with fluid filled stomach gastric outlet of gastroparesis, cannot exclude retroperitoneal/maria isabel hepatitis adenopathy
-dysarthria on admission with hx prior CVA in 2020, MRI 09/05 with small foci of acute to subacute infarct involving both occipital lobes focal region and suspicious for a focus of acute to subacute infarct involving the choroid plexus, although
can also be seen with choroid plexus xanthogranuloma
-hypernatremia
-fall prior to admission with gluteal tear
-mech AVR with chronic warfarin use prior to admission
-sepsis with step pyogenes bacteremia
-new afib on admission
-mild thrombocytopenia resolved
-s/p thora
-hx occult GI bleed
-severe calorie malnutrition
other med problems:
hodgkin's lymphoma 1969's, prior XRT, breast CA with b/l mastectomy prior [place], hypothyroidism with prior thyroidectomy, splenectomy, HTN, secondary to XRT with mech AVR, MV stenosis, CVA, CHF, pulm HTN, CKD
PLAN:
asked to see again for nutrition as decreased oral intake with sepsis and concern for CVA
reviewed speech eval with concern for moderate oral and moderate-severe pharyngeal dysphagia
I reviewed spouse, pt was recommended PEG in past with prior swallowing issues and declined at that time
pt weight 56 kg in 2020 now down to 35 kg
HCT repeated 09/11 as noted with evolving infarction and encephalomalacia right frontal lobe
reviewed option of temp DHT( but cannot leave hospital with tube) PEG with risk reviewed (bleeding,infection, perforation, reaction to medication, and does not eliminate risk of aspiration and may be higher risk with hx gastroparesis) vs hospice
I am concern for decline of mental status over last week -- currently very minimal verbal and drifting off
pt and spouse to consider options
remain on heparin Gtt -- was given 1 dose of oral Coumadin 09/11
with prior coffee ground hbg stable 12,600
cont PPI BID
NSAID avoidance
'
I will have Dr. Singh review again with patient and spouse for options and plan for ongoing nutrition
Subjective
Subjective
Date of Service: September 12, 2025
asked to see again for peg eval with hx CVA and hx chronic dysphagia issues over last years with wt loss, currently on full liquid diet but tolerating minimal per family, 09/09 brown stool
Objective
Data Reviewed
Laboratory Data:
Laboratory Results
09/12/25 04:51
09/12/25 04:51
Laboratory Results
PT 16.6 Sec (11.4-14.6) H 09/12/25 04:51
INR 1.31 09/12/25 04:51
APTT 34.9 Sec (23.4-35.0) 09/12/25 01:52
Phosphorus 2.9 mg/dl (2.5-4.5) 09/05/25 06:07
Magnesium 2.4 mg/dl (1.6-2.3) H 09/12/25 04:51
Total Bilirubin 0.7 mg/dl (0.2-1.3) 09/12/25 04:51
AST 20 U/L (14-36) 09/12/25 04:51
ALT 20 U/L (0-35) 09/12/25 04:51
Alkaline Phosphatase 122 U/L (38-126) 09/12/25 04:51
Vital Signs and I&O:
Vital Signs
Temp Pulse Resp BP Pulse Ox
97.8 F 91 18 140/74 96
09/12/25 07:15 09/12/25 09:04 09/12/25 07:49 09/12/25 09:04 09/12/25 07:49
I&O
09/11/25 09/12/25 09/13/25
06:59 06:59 06:59
Intake Total 600 / 600 542 / 542
Output Total 175 / 175
Balance 600 / 600 367 / 367
Physical Exam
Physical Exam
HEENT: Anicteric and Moist mucous membranes
Cardiology: Normal Sinus Rhythm
Pulmonary: Clear
GI: Soft, Distended and Non Tender
Extremities: No Edema
Neuro: Other (lethargic but nodding to some questions )
--- NOTE | 2025-09-12 10:34 | W.PN.ID1 ---
Date of Service
Date of Service: September 12, 2025
Today's Communication
Continue ceftriaxone for now.
PEG evaluation.
Assessment / Plan
# Group A streptococcus bacteremia, suspect lung source
# Multiple acute/subacute CVA; DAVE no source of embolic CVA
# Dysphagia/Aspiration PNA
# Leukocytosis - improving
#s/p Septic shock
# Fever resolved
# Left hip pain/trochanteric bursitis/gluteus tendinitis s/p left hip injection x 2
# Gastroparesis
# Severe protein-calorie malnutrition
# Hx Splenectomy
# Stage 3 breast ca (declined further tx)
# Mechanical AVR - DAVE neg vege
- Of note, with recent GAS pharyngitis. Pt's throat swab neg.
- Repeat blood cx's x 2 negative
- DAVE: no vegetation
- Right pleural effusion s/p thora 660cc serosanguineous fluid; exudative, cx negative
- Aspiration precaution
- Unable to take po due to dysphagia.
Initially, pt refused PEG and agreed to hospice. Later, she reversed her decision and will try PEG.
Hospitalist consulted GI
- Continue IV ceftriaxone (d8) for now
Chief Complaint
-: Bacteremia
Subjective / Review of Systems
and Dr. Castañeda at bedside.
Continues with difficulty swallowing meds.
Vital Signs / Physical Exam
Vital Signs
Vital Signs
Temp Pulse Resp BP Pulse Ox
97.8 F 91 18 140/74 96
09/12/25 07:15 09/12/25 09:04 09/12/25 07:49 09/12/25 09:04 09/12/25 07:49
Physical Exam
Constitutional: Chronically Ill and Cachetic
Eyes: No Conjunctival Hemorrhage and Sclera Anicteric
Cardiovascular: Regular Rate and S1/S2
Pulmonary: Coarse
Gastrointestinal: Soft, Non Tender and Non Distended
Extremities: Negative Edema
Neurological: AO x 3
Objective Data
Lab Data
Lab Results
09/12/25 04:51
09/12/25 04:51
PT 16.6 Sec (11.4-14.6) H 09/12/25 04:51
INR 1.31 09/12/25 04:51
APTT 34.9 Sec (23.4-35.0) 09/12/25 01:52
Estimated Creat Clear 27 ml/min 09/12/25 04:51
Lactic Acid 1.9 mmol/L (0.7-2.0) 09/05/25 21:46
Total Bilirubin 0.7 mg/dl (0.2-1.3) 09/12/25 04:51
AST 20 U/L (14-36) 09/12/25 04:51
ALT 20 U/L (0-35) 09/12/25 04:51
Alkaline Phosphatase 122 U/L (38-126) 09/12/25 04:51
Most recent labs reviewed.
Micro Results:
09/06/25 04:18 Blood Culture - Final
Blood/Venous No Growth - Final Report
09/05/25 14:28 Blood Culture - Final
Blood/Venous No Growth - Final Report
09/04/25 02:50 Blood Culture - Final
Blood/Venous Streptococcus pyogenes
Gram Stain - Final
09/04/25 02:50 Blood Culture - Final
Blood/Venous Streptococcus pyogenes
Gram Stain - Final
09/06/25 11:09 Body Fluid Culture - Final
Pleural Fluid No Growth After 72 Hours
Gram Stain - Final
09/06/25 11:09 Acid Fast Bacilli Smear - Preliminary
Pleural Fluid Acid Fast Bacilli Culture - Preliminary
09/05/25 13:59 Streptococcus Screen (VANDANA) - Final
Throat/Pharynx No Beta Hemolytic Streptococci Isolated
Streptococcus Rapid Screen - Final
Rapid Strep Screen (Group A) Negative
09/05/25 13:59 Throat Culture - Final
Throat/Pharynx Usual Respiratory T[place]
09/04/25 02:51 Urine Culture - Final
Urine NO GROWTH
09/11/25 CXR: There is improved aeration of the right lung with a tiny right-sided pleural effusion. No pneumothorax.
09/08/25 CXR: Small to moderate right pleural effusion with associated atelectasis and/or pneumonia, progressed. Small left pleural effusion with associated atelectasis and/or pneumonia, slightly improved. Suspect mild CHF.
09/06/25 CXR: Interval increase in opacification of the right lower lung, most likely atelectasis. Evidence for small to moderate right pleural effusion including lateral loculation. Small left pleural effusion. Parenchymal opacity within the left
lower lung, mainly medially, with differential considerations of atelectasis and/or pneumonia.
11/05/24 Brain MRI: There are small foci of acute to subacute infarct involving both occipital lobes; suspicious for a focus of acute to subacute infarct involving the choroid plexus, although can also be seen with choroid plexus xanthogranuloma.
Findings would suggest focal area of acute to subacute infarct in the right frontal lobe, superior to the region of encephalomalacia.
09/04/25 CXR: The lungs are clear.
09/04/25 CT a/P: Markedly limited CT of the abdomen and pelvis as a result of numerous factors,
09/04/[address]: At least 3 cm focus of decreased attenuation centered about the right sylvian fissure which could represent an intracranial mass with edema such as metastatic disease. Subacute to chronic infarct cannot be differentiated on this CT
without intravenous contrast. Recommend Brain MRI without and with contrast for more complete evaluation.
09/04/25 L HIP XRAY:No acute fracture or dislocation. The hip joint space is maintained. Gluteus medius calcific tendinosis.
08/17/25 outside MRI wo contrast left hip report: ' There is evidence of a tear of the distal gluteus minimus muscle and tendon at the level of the greater trochanter with evidence of peritrochanteric edema and fluid. Incidental inguinal lymph
nodes are noted bilaterally.
Care Review
Plan reviewed with: Physician (Dr. Castañeda)
[2025-09-12 10:44] LABS: APTT 65.1 Sec (23.4-35.0)
--- NOTE | 2025-09-12 12:23 | CM ---
Addendum entered by Vickie Cruz 09/12/25 14:12:
Referrals placed with [facility], [facility] and [facility]. [facility] is their first choice.
Plan: DC to SNF when bed is available
Original Note:
Met with pt and chairside. Provided pt and spouse Medicare.gov 5-star rating report. Pt lives in [place] and expressed her first interest as [facility].
Pt continues on IV ABX and awaiting peg tube placement.
Plan: DC to SNF when stable.
[2025-09-12] MEDS: STERILE WATER FOR INJECTION 20 ML IV (12:32)
[2025-09-12] MEDS: ROCEPHIN 2000 MG IV (12:32)
[2025-09-12] MEDS: LOPRESSOR 5 MG IV ×3 (12:33→21:30)
[2025-09-12] MEDS: FLUSH (NSS) 1 FLUSH IV ×2 (12:34→12:35)
[2025-09-12] MEDS: ANESTHETIC LOZENGE 1 LOZENGE PO (12:35)
--- NOTE | 2025-09-12 16:20 | W.PN.CARDCBS ---
Addendum entered and electronically signed by Patrick Finney MD 09/12/25 18:58:
69-year-old woman admitted with left hip pain 09/04/2025, septic shock and group A strep bacteremia, with negative transesophageal echo. Patient with dysphagia, unable to swallow, now scheduled for PEG tube
PMH/PSH: [place] mechanical AVR, pediatric, mild-moderate MR/mitral stenosis, history of Hodgkin's lymphoma, breast cancer with bilateral mastectomy, HFpEF, CAD with medically managed 60-70% ostial left main, CARDROOM MANAGER of proximal RCA, bilateral
strokes, sinus pauses, without plan for pacemaker
Current meds:IV diltiazem, currently on hold, DuoNebs, levothyroxine, polyethylene, Pulmicort, pantoprazole, IV heparin, future hold, hydralazine 5 IV every 6, ceftriaxone, metoprolol 50 IV twice daily, warfarin 2 mg at bedtime
159/81, pulse 118, respiratory rate 18, afebrile, weight is 35.5 kg, wrapped in numerous blankets, cachectic, frail, son at bedside, limited exam, lungs are clear, tachycardic and regular, no obvious murmurs, prostatic second heart sound, abdomen
benign, no edema
CT head August 2025: Evolving lateral right frontal infarct, previously seen bilateral occipital infarcts not well-visualized
Chest x-ray, increased interstitial markings bloody pleural effusion
Impression:
Group A bacteremia, no evidence of prosthetic valve endocarditis on DAVE
Suspected pneumonia with right pleural effusion
dysphagia, dysarthria likely related to subacute infarcts,
History of GI bleed
History of CVA suspicion for bihemispheric embolic source
[place] aortic valve replacement
History of breast cancer
History of Hodgkin's lymphoma
CAD, 60-70% left main stenosis, CARDROOM MANAGER of proximal RCA
Plan:
She is tachycardic, likely reflecting inability to give oral beta-angel luis. Patient now off IV diltiazem. Agree with [id number] IV metoprolol 5 mg, will increase from every 6 to every 4
Management will be much easier with PEG tube, patient has agreed to proceed. Cardiac risk is elevated but not prohibitive
Currently on heparin with mechanical aortic valve, INR subtherapeutic after vitamin K, resume warfarin when able.
No evidence of endocarditis on transesophageal echo
.
Prognosis guarded given her multiple comorbidities
Original Note:
Today's Communication / Plan
-
Patient and agreeable to PEG tube placement
Lopressor can be resumed once PEG tube is in place
Patient was given vitamin K 2.5 mg PO x 1 on 09/09/2025 and INR has dropped to 1.31 on 09/12/2025. Goal INR 2.5-3 patient will need to be bridged with heparin until she is at goal.
Impression / Plan
-
PCP: Dr. Haynes
Cardiology: Dr. Aramis Resendez
Oncology: Dr. Amaral
Impression:
Admitted 09/04/2025 with left hip pain
TME
Septic shock requiring pressors
Group A Streptococcus bacteremia
Suspected pneumonia
Right pleural effusion
s/p right thoracentesis for 660 mL of blood tinged fluid
Dysphagia, dysarthria likely secondary to acute/subacute infarcts in bilateral occipital lobes, choroid plexus, and extension of previous right frontal lobe infarct
Left hip pain/trochanteric bursitis/gluteus tendinitis s/p left hip injection x 2 as outpatient
h/o recurrent GIB (05/02/25 until 05/05/25, readmitted 05/06/25)
Chronic warfarin OAC managed by [facility] cardiology
h/o CVA
h/o CVA 2005
h/o right MCA stroke with M2 occlusion in setting of subtherapeutic INR while off Coumadin 07/15/21
patient bridged with Lovenox prior to colonoscopy 07/10/21, but no Lovenox bridge post-colonoscopy
Mechanical AVR pediatric size 2006
Mitral regurgitation with mitral stenosis
Tricuspid regurgitation with pulmonary hypertension
h/o Hodgkin's lymphoma treated with radiation to left neck and pelvis 1973
h/o breast CA
2018 treated with B/L mastectomy, patient refused chemotherapy and radiation, but eventually agreeable to Tamoxifen
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
Recurrence of breast cancer 2021 - did not tolerate Ibrance or Ribociclib
Labile HTN
Hypothyroidism
Chronic HFpEF
CAD with 60 to 70% ostial to proximal LM stenosis, 100% CARDROOM MANAGER proximal RCA with [id number] collaterals by cardiac cath 10/28/2024
LHC 10/28/2024: Eccentric 60-70% ostial to proximal Left main, difficult to advance IVUS catheter. iFR positive at 0.76. Elevated filling pressures, normal cardiac output/index, occluded right coronary artery with brisk collater, Nonobstructive plaque
of LAD and circumflex, pulmonary artery pressure 62/26, pulmonary capillary wedge pressure is 22, right atrial pressure is 11, cardiac index is 2.5
Echo 08/26/2022: Hyperdynamic LV.� EF 70 to 75%.� Mild to moderate MS peak/mean gradient 20/7 mmHg.� Moderate to severe MR.� Well-seated mechanical AVR with peak/mean gradient 11/6 mmHg without regurgitation.� Moderate to severe TR.� Moderate
pulmonary hypertension with PAP 50 to 55 mmHg.
Echo 02/10/2023: EF 60 to 65%.� Moderate mitral stenosis mean gradient 11 with severe MR.� Well-seated mechanical AVR with peak/mean gradient 15/8 mmHg, mild to moderate TR, mild pulmonary hypertension with PAP 45 to 48 mmHg.
Echo 11/19/2023: EF 70-75%, moderate MS with peak/mean gradients 15/8 mmHg, moderate MR, mechanical prosthetic AVR with peak/mean gradients 16/9 mmHg, trace AR, moderate TR, estimated PAP 30-35 mmHg
Echo 10/25/24: EF 55-60%, moderate mitral stenosis with mean gradient of 8 mmHg, mild to moderate MR, mechanical AVR with mean gradient of 10, no AI, mild to moderate TR with PA pressure 40-45
Echo 09/05/2025: EF 55 to 60%. Mild LVH. Mildly dilated LA and RA. Mild to moderate mitral regurgitation. Well-seated mechanical aortic valve peak/mean gradient 7/4 mmHg. No AI. Moderate TR with PAP 39 mmHg.
MRI brain 09/05/25: There is no MR evidence for intracranial metastatic disease. There are small foci of acute to subacute infarct involving both occipital lobes as described. Focal region of abnormal restricted diffusion involving the choroid
plexus within the atria of the right lateral ventricle. Given the findings in the occipital lobe, this is suspicious for a focus of acute to subacute infarct involving the choroid plexus, although can also be seen with choroid plexus
xanthogranuloma. Focal area of encephalomalacia involving the inferior right frontal and superior right temporal lobe, in the region of the insula. There is a region of abnormal diffusion extending superiorly and anteriorly to the region of
encephalomalacia, and signal abnormality extends appears increased compared to previous MRI in June 2021. Findings would suggest focal area of acute to subacute infarct in the right frontal lobe, superior to the region of encephalomalacia.
-Carotid ultrasound 09/05/25: Minimal calcified carotid bulb plaque on each side, measurements suggestive of less than 50% stenosis on each side.
Plan:
-Admitted 09/04/2025 with left hip pain then developed acute altered mental status and slurred speech and was found to have septic shock requiring pressors which have been weaned.
-GI note reviewed by me 09/12/2025. Patient has been recommended PEG tube placement and patient and are agreeable. Patient has had progressive weight loss, dysphagia and failure to thrive.
-Patient remains on Rocephin 2 grams IV daily and ID is following for Strep A bacteremia.
-DAVE 09/07/25 did not show valvular vegetation to suggest infective endocarditis
-Patient found to have new acute/subacute CVAs involving posterior circulation and in bilateral occipital lobe suggestive of embolic source on MRI 09/05/25. No evidence of KALIA thrombus on DAVE 09/07/25
-Patient also noted to have newly diagnosed paroxysmal A-fib this admission. Cardizem gtt used for rate control earlier this admission and then stopped. Patient has been unable to restart her outpatient dose of Toprol XL 50 mg BID due to dysphagia
and is currently ordered Lopressor 50 mg BID which she is able to take intermittently with applesauce, but dose missed on 09/12/2025 AM. Lopressor should be able to be restarted and given crushed in her PEG tube once placed.
-Patient had an approximately 4-second pause on telemetry 09/09/2025 at 5 AM, no additional pauses noted. No indication for PPM.
-Patient has history of pediatric mechanical aortic valve maintained on Coumadin as outpatient with goal INR 2.5-3.0. INR was greater than 8 on 09/09/2025 and that correlated with an Hgb of 13.1, the patient was still given vitamin K 2.5 mg PO x 1
on 09/09/2025. INR has now dropped precipitously down to 1.31 on 09/12/2025. All INR is reviewed by me.
-INRs are generally drawn through the hospital either at the outpatient lab or the outpatient infusion center. INRs are managed by cardiology. Patient has had 3 different home monitors arranged for her over the last 5 years and she returns each 1
and says that she is unable to perform fingerstick due to history of Raynaud's.
-BP 161/76 on 09/12/2025 afternoon, hydralazine 5 mg IV every 6 hours was started by hospitalist attending. Once PEG tube is in place could also try using amlodipine crushed via PEG tube
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
Subjective
Date of Service: September 12, 2025
No complaints
Objective
Labs:
09/12/25 04:51
09/12/25 04:51
Labs
Hgb 12.6 g/dL (12.0-16.0) 09/12/25 04:51
Hct 37.0 % (37.0-47.0) 09/12/25 04:51
Plt Count 223 10^3/uL (130-400) 09/12/25 04:51
PT 16.6 Sec (11.4-14.6) H 09/12/25 04:51
INR 1.31 09/12/25 04:51
APTT 65.1 Sec (23.4-35.0) H 09/12/25 10:21
Sodium 147 mmol/L (135-145) H 09/12/25 04:51
Potassium 4.0 mmol/L (3.5-5.1) 09/12/25 04:51
BUN 70 mg/dl (7-17) H 09/12/25 04:51
Creatinine 1.1 mg/dL (0.6-1.0) H 09/12/25 04:51
Glucose 141 mg/dl (70-99) H 09/12/25 04:51
Troponins
09/12/25
04:51
Troponin I 0.526 H*
Vital Signs and I&O:
Vital Signs
Temp Pulse Resp BP Pulse Ox
98.0 F 85 18 161/76 97
09/12/25 15:15 09/12/25 15:18 09/12/25 15:18 09/12/25 15:15 09/12/25 15:18
Vital Signs
Temp Pulse Resp BP Pulse Ox
98.0 F 85 18 161/76 97
09/12/25 15:15 09/12/25 15:18 09/12/25 15:18 09/12/25 15:15 09/12/25 15:18
Intake & Output
09/10/25 09/11/25 09/12/25 09/13/25
06:59 06:59 06:59 06:59
Intake Total 480 / 480 600 / 600 542 / 542
Output Total 175 / 175
Balance 480 / 480 600 / 600 367 / 367
Physical Exam
Physical Exam
GEN: Awake and alert, thin, pale
LUNGS: RA. No audible wheeze.
CV: SR on telemetry. Reg, S1/S2, 2/6 apical murmur, audible click of mechanical valve
[2025-09-12] MEDS: MYCOSTATIN ORAL SUSPENSION 5 ML PO (17:44)
[2025-09-12 18:24] LABS: APTT 67.2 Sec (23.4-35.0)
[2025-09-12] MEDS: ATIVAN 0.25 MG IV (20:13)
[2025-09-12] MEDS: NSS (PRESERVATIVE FREE) 0.125 ML IV (20:14)
[2025-09-12] MEDS: HEPARIN 25000 UNITS/250 ML IV (23:40)
[2025-09-13] VITALS (9 sets, daily range): BP systolic 114–178; BP diastolic 52–79; BMI 16.8
[2025-09-13 01:01] LABS: APTT 83.9 Sec (23.4-35.0)
[2025-09-13] MEDS: NSS (PRESERVATIVE FREE) 0.125 ML IV ×3 (02:20→21:30)
[2025-09-13] MEDS: ATIVAN 0.25 MG IV ×3 (02:21→21:30)
[2025-09-13] MEDS: LOPRESSOR 5 MG IV ×3 (02:35→10:57)
[2025-09-13] MEDS: D5W 1000 IV ×2 (02:53→20:26)
[2025-09-13] MEDS: ROBITUSSIN PO ×2 (03:01→07:19)
[2025-09-13 05:22] LABS: Hematocrit 36.6 % (37.0-47.0); Hemoglobin 12.1 g/dL (12.0-16.0); Mean Corp Hgb Conc. 33.1 g/dL (33.0-37.0); Mean Corpuscular Volume 84.3 fL (81.0-99.0); Platelet Count 244 10^3/uL (130-400); Red Cell Dist. Width 20.0 % (11.5-14.5)
[2025-09-13 05:28] LABS: INR 1.37; PT 17.1 Sec (11.4-14.6)
[2025-09-13 05:45] LABS: ALT (SGPT) 18 U/L (0-35); AST (SGOT) 21 U/L (14-36); Albumin 2.8 g/dl (3.5-5.0); Alkaline Phosphatase 108 U/L (38-126); Blood Urea Nitrogen 54 mg/dl (7-17); Calcium 8.5 mg/dl (8.4-10.2); Carbon Dioxide 23 mmol/L (22-30); Chloride 110 mmol/L (98-107); Estimated Creatinine Clearance 29 ml/min; Glucose 124 mg/dl (70-99); Magnesium 2.0 mg/dl (1.6-2.3); Potassium 3.8 mmol/L (3.5-5.1); Sodium 137 mmol/L (135-145); Total Protein 6.7 g/dl (6.3-8.2); eGFR > 60.00
[2025-09-13] MEDS: APRESOLINE 5 MG IV ×4 (06:12→23:24)
--- NOTE | 2025-09-13 07:17 | W.PN.HOSP.TC ---
Addendum entered and electronically signed by Randall Castañeda MD 09/13/25 13:33:
Attending�addendum:
I saw and evaluated the patient independently. I reviewed and discussed the resident�s note and agree with findings and plan as documented in the resident�s note.� patient seen and examined at bedside, at bedside.
Patient was seen on her way to get PEG tube placed.
Physical�exam:
GENERAL : Patient is awake, looks tired, cachectic
HEENT: Nonicteric sclerae, PERRLA, EOMI. Oropharynx clear. Moist mucous membranes. Conjunctivae appear well perfused.
CHEST: Chest wall is nontender.
HEART: Regular rate and rhythm without murmurs.
LUNGS: Clear to auscultation bilaterally.
ABDOMEN: Soft, positive bowel sounds, nontender, no organomegaly.
RECTAL: Deferred.
MUSCLES/EXTREMITIES: No abnormal range of motion, no swelling.SKIN: No rash, no excessive bruising, petechiae, or purpura.
NEUROLOGIC: Awake
�
Assessment/plan:
Septic shock.
Bacteremia.
Continue antibiotics as per ID.
May switch to oral antibiotics once PEG tube
Acute metabolic encephalopathy.
Improved
New onset A-fib.
Continue heparin drip, metoprolol
Severe protein calorie malnutrition.
Dysphagia.
GI consulted for PEG tube
CODE STATUS:DNR
DVT prophylaxis: heparin drip
Diet: N.p.o.
Family communication: Discussed with at bedside
Disposition: PEG tube today
�
Total time spent on today�s encounter was 60 minutes which included time spent in counseling the patient/family regarding diagnosis and treatment plan as listed above, goals of care, and symptom management. Case was discussed with nursing staff,
specialists, and care coordinators/case management. All labs and imaging personally reviewed by me. Remainder the time spent in detailed review of previous records, lab data, imaging, and other medical provider documentation.
Original Note:
Today's Communication/Plan
-
PEG placed today
Roll Handler consult
Continue PO meds by tube
Tomorrow start tube feeding
Monitor HR, BP
Start heparing ggt
Start Coumadin QPM
Assessment / Plan
Assessment / Plan
09/04/25 Rapid Response Deteriorating Mental Status 2/2 Developing Severe Sepsis (Leukocytosis, Fever, end organ damage [place])
Acute Metabolic Encephalopathy
Septic shock from GAS with bacteremia
-After study, Sepsis due to Bacteremia with organ dysfunction of hypotension was present on admission
-Manager Licensing consult, input appreciated
-Transferring from ICU to telemetry
-Septic shock Levophed on hold improving BP. Goal MAP>65
-Blood Cx's drawn in ED, Strep Pyogenes (+)
-ID consult, input appreciated
-Started on Renally dose Cefazolin per discussion with ID- Replace Cefazolin with Ceftriaxone #D9 - When able to take PO transition to cephalexin 500mg PO TID till 09/18/2025
-Pt's + for Strep throat. Repeat blood C's x2- No growth
-Throat Cx Group B strep - negative
-Rapid strep for GAS-negative
-IVF with D5W
-Pleural fluid Cx- neg
-PMR consult, input appreciated - subacute rehab
-productive mucous , suction of throat - dc
-Follow temp- tylenol prn
-Follow vitals
CT head scan 09/11/2025 for altered mental status
-There is evolving known infarction and chronic encephalomalacia within the lateral right frontal lobe.
-The known recent prior bilateral occipital infarcts are not well visualized on this examination.
-There is no evidence of acute intracranial hemorrhage
Chest Xray 09/11/2025 for residual pleural effusion
-There is improved aeration of the right lung with a tiny right-sided pleural effusion. No pneumothorax.
Chest Xray 09/08/25
-Small to moderate right pleural effusion with associated atelectasis and/or pneumonia, progressed
-Small left pleural effusion with associated atelectasis and/or pneumonia, slightly improved
-Suspect mild CHF
New Atrial fibrillation
- Overnight she had HR >150's irregular, BP 135/53 98.2, 22 95% 2l , EKG Afib with RVR, no hx of Afib noted
- Received Metoprolol, Cardizem
- Troponin 1.050 --> 0.526--> High likely from non ischemic myocardial injury
- Afib likely due to ? aspiration ? pleural effusion? hypovolumic?
- CHADSVASC score 7
- Consult cardiology, input appreciated
--Increase Toprol to 50mg BID tube for rate control
--Cardizem 5ml/h, Attempt to wean carzidem ggt - D/C HR<110
--D/c 5mg IV Lopressor Q4h - hold for SBP<100, HR<60
--Not PPM candidate at present given coagulopathy as well as bacteremia / sepsis
--Monitor HR
Malnutrition
PEG tube placement
-Likely Severe Protien Calorie Malnutrition vs cachexia
-Consult Dietary RN
-pt weighted 56kg now 35.5, BMI 16.4
-Pt and Silvino want to proceed with PEG tube placement for progressive weight loss.
-Consult GI, input appreciated
-PEG tube placement 09/13 - Hx of gastroparesis, may have difficulty tolerating PEG tube feeds, if cant tolerate may need to have IR convert that to a GJ tube
-Hold Heparin ggt 4 hours prior to the PEG placement - started heparin ggt 1 hour after PEG
-Start Warfarin 2mg QPM
-use PEG today for meds and water, may use PEG tomorrow for feedings
-antibiotic ointment on site and change dressing QD
-Nutrition consult for formula and volume
Endoscopy 09/12/2025
- A Grade A reflux esophagitis with no bleeding.
- Small hiatal hernia.
- Two gastric polyps not biopsied since need to restart Heparin.
- Non-bleeding duodenal ulcer with no stigmata of bleeding.
- A PEG placement was successfully completed.
- No specimens collected.
Oral thrush
-Continue Nystatin Suspension
Hypertensive urgency
- L187/82, R 194/76 - improved
- IV hydralazine 5mg Q6h, Hold if SBP <130
Hypernatremia
-Na 151--> D5W 60ml/h--> Na 147-->D5W continue until tm 60ml/h-->Na137
-Day 3 D5W
Nausea and Vomiting
Coffee Ground Emesis vs Bilious Emesis
-Warfarin was on hold at the admission because of possible GI Bleeding exacerbated by Warfarin
-Suspect previous coffee ground material secondary to bilious emesis related to sepsis and known gastroparesis
-Hx of GIB with recent scopes in April
-09/04 NGT placed to suction w/ relief symptoms- Patient had NG tube which was pulled 09/06/2025 with no significant finding of coffee-ground emesis
-CT abd/pelvis w/o contrast limited study noted, possible gastric outlet obstruction vs gastroparesis
-Hb 8.7, received 1PRBC this admission. transfuse if Hgb<8 - Hb 12.6
-Consult GI, input appreciated
-Protonix BID
-Avoid NSAID
-Improved
Pleural effusion
- On POCUS- right sided moderate pleural effusion
- Suspect for sepsis site with Bc strep. pyogenes- empyema?
- thoracentesis was performed 09/06. a total of 660 mL of serosanguineous fluid was collected
- Acid Fast Bacilli and Fluid Cx - neg prelim
- Per Light's Criteria PF/Serum Protein= 0.58= exudative, PF/Serum LDH=0.517=does not meet criteria
- Meets 1 Lights criteria - exudative, gross look of serosanginous fluid 2/2 ? infection, ? malignancy, ? pseudoexudative 2/2 home lasix - await pathology results
- Pro BNP >81065 , transudative 2/2 HF?
- Pleural effusion improved- dc furosemide
H/o Breast Cancer with brain lesions, metastasis vs embolic stroke
CT scan of head
At least 3 cm focus of decreased attenuation centered about the right sylvian fissure which could represent an intracranial mass with edema such as metastatic disease.
Subacute to chronic infarct cannot be differentiated on this CT without intravenous contrast.
Recommend Brain MRI without and with contrast for more complete evaluation.
Brain MRI w/wo contrast
There is no MR evidence for intracranial metastatic disease
There are small foci of acute to subacute infarct involving both occipital lobes
Focal region of abnormal restricted diffusion involving the choroid plexus within the atria of the right lateral ventricle.
Given the findings in the occipital lobe, this is suspicious for a focus of acute to subacute infarct involving the choroid plexus, although can also be seen with choroid plexus xanthogranuloma
Focal area of encephalomalacia involving the inferior right frontal and superior right temporal lobe, in the region of the insula. There is a region of abnormal diffusion extending superiorly and anteriorly to the region of encephalomalacia, and
signal abnormality extends appears increased compared to previous MRI in June 2021.
Findings would suggest focal area of acute to subacute infarct in the right frontal lobe, superior to the region of encephalomalacia
Carotid US- Minimal calcified carotid bulb plaque on each side, measurements suggestive of less than 50% stenosis on each side
-last Tx was in October
-follows with Dr Amaral, recently received outpt IV iron infusions for anemia
-Consulted Neurology, input appreciated
-posterior circulation areas of ischemia which are suggestive of embolic stroke in bilateral occipital lobes
-Provide with AC, risk of hemorrhagic conversion of small posterior lesions unlikely. Avoid bolus IV heparin
-DAVE today 09/07 - No evidence of cardioembolic source of stroke, no evidence for endocarditis
Dysarthria
Dysphagia
-likely 2/2 acute/subacute infarcts in bl occipital lobes, choroid plexus, and extension of previous right frontal lobe infarct
-New Speech eval - NPO
-VSE 09/09/2025
- Fluoroscopic evidence of laryngeal penetration and aspiration was demonstrated.
- Vallecular residue noted throughout study with all barium consistencies.
- Brief fluoroscopy of the thoracic esophagus did not demonstrate any residue
-NPO was recommended, Pt and her Silvino stated wanting to continue her diet full liquids - understanding the risk of aspiration. Risks from aspiration and her DNI, DNR status were discussed with them.
Acute on CKD stage III
-likely pre-renal poor oral intake nausea vomiting
-IVF support
-avoid nephrotoxins, prn Toradol discontinued
-monitor renal function
Mechanical Aortic Valve Replacement on Coumadin
HFpEF (recent ECHO EF 55-60%)
ASCVD
Prior [place], CVA with L sided weakness.
-AC was held in view of acute drop in Hb and concern for brain emboli with bacteremia
-Continue heparin ggt per lieutenant firefighter, monitor APTT - Discontinued IV heparin on 09/07/2025
-Repeat Lasix 20mg IV x 1 on 09/07 then switch to 20mg Lasix PO QD
-Resume Metoprolol 25mg PO BID
-therapeutic INR 2.5-3
-Heparin ggt 09/11, Coumadin 2 mg 09/11 QPM -- Hold Coumadin QPM, hold heparin ggt 4 hours prior to PEG
-Resume hearin ggt, Resume Coumadin QPM
-Follow Daily INR, APTT
TTE
1. Compared to a prior transthoracic echocardiogram study from 07/25/2025 no significant changes are seen.
2. Left ventricle is small in size. Mild concentric left ventricular hypertrophy. Preserved left ventricular systolic function. Left ventricular ejection fraction is 55-60% by visual estimate.
3. Well seated mechanical aortic valve replacement. Peak/mean gradients across the aortic valve are 7/4 mmHg respectively. No aortic regurgitation.
4. Moderate tricuspid regurgitation. Estimated pulmonary artery pressure of 39 mmHg assuming a right atrial pressure of 3 mmHg.
5. Thickened calcified mitral valve leaflets with adequate excursion. Dense mitral annular calcification. There is at least mild to moderate mitral regurgitation which may have been underestimated due to mitral annular calcification.
Acute on Chronic Left Hip Pain
-left hip greater trochanteric bursitis and gluteal tendinitis, follows Dr Caban
-Hip X-ray appreciated no acute fracture or dislocation
-Orthopedic eval appreciated steroid injection given 09/04/25- ice and tylenol prn
-PT/OT eval - acute rehab
-PMR consult, input appreciated - subacute rehab
Anxiety
-0.25mg Ativan Q6H
Hypothyroidism
-Levothyroxine 88mcg PO QD - on hold due to NPO for meds status #D4 - resume levothyroxine by tube
-For IV levothyroxine policy is to wait 3 days NPO before starting IV dose. IV dose is 75% of PO so reduce 88mcg PO to 66mcg IV QD on 09/13
-Last PO levothyroxine was on 09/09
Electrolyte abnormality
-hypocalcemia- repleted
Constipation
-Senokot-S , Miralax prn
-resolved
Pulmonary HTN
- RHC 10/2024, mPA 41, PCWP 22 with CI 2.5, PVR 5.8.
- Group II with h/o AVR, elevated PCWP. Also elevated PVR suggestive of concomitant pre-capillary Pulmonary HTN
DVT ppx SCD
DNR as per POA Uziel
Dispo: SNF
Anticipated Discharge: > 48 hours
Subjective/Interval History
-
Date of Service: September 13, 2025
She had a PEG tube placed earlier today. She complains about sore throat. She denies abdominal/chest pain, no palpitation, no headache. She feels sleepy .
Objective Data
-
Labs:
Laboratory Results
09/13/25 09/13/25
00:35 05:02
WBC 13.5 H
Hgb 12.1
Hct 36.6 L
Plt Count 244
PT 17.1 H
INR 1.37
APTT 83.9 H
Sodium 137 D
Potassium 3.8
Chloride 110 H
Carbon Dioxide 23
BUN 54 H
Creatinine 1.0
Glucose 124 H
Calcium 8.5
Total Bilirubin 0.8
AST 21
ALT 18
Alkaline Phosphatase 108
Vital Signs:
Vital Signs
Temp Pulse Resp BP Pulse Ox
98.5 F 97 16 185/64 96
09/13/25 03:20 09/13/25 06:13 09/13/25 03:20 09/13/25 06:13 09/13/25 03:20
I&O
09/12/25 09/13/25 09/14/25
06:59 06:59 06:59
Intake Total 542 / 542 200 / 200
Output Total 175 / 175 200 / 200
Balance 367 / 367 0 / 0
Review of Systems
-
History Source: Patient
Constitutional: Reports No Symptoms
EENT: Reports Sore Throat and Mouth Pain
Respiratory: Reports No Symptoms
Cardiac: Reports No Symptoms
Abdomen/GI: Reports No Symptoms
Breast: Reports No Symptoms
Genitourinary: Reports No Symptoms
Skin: Reports No Symptoms
Neuro: Reports No Symptoms
Endocrine: Reports No Symptoms
Allergy / Immunology: Reports No Symptoms
Physical Exam
-
General: Well Developed, Appears in Distress, Conversant, Appears Chronically Ill and Cachectic
HEENT: Normocephalic, Atraumatic and Thrush (hemorrhagic spots)
Respiratory: Clear to Auscultation
Cardiac: Regular Rhythm and S1/S2 (electric engine mechanic valve)
Breast: Deferred by me
GI: Soft, Nontender, Nondistended and Normal Bowel Sounds
Rectal: Deferred by Provider
Musculoskeletal: No Clubbing, No Cyanosis and No Edema
Skin: Warm and Dry
Neuro: AO x 3 and Other (extraocular movements abnormal, eye not following directions)
Psych: Calm
[2025-09-13] MEDS: LOPRESSOR PO (07:19)
[2025-09-13] MEDS: MYCOSTATIN ORAL SUSPENSION PO ×4 (07:26→21:15)
[2025-09-13] MEDS: NSS (PRESERVATIVE FREE) 10 ML IV ×2 (07:43→20:26)
[2025-09-13] MEDS: FLUSH (NSS) 1 FLUSH IV (07:44)
[2025-09-13] MEDS: PROTONIX IV 40 MG IV ×2 (07:44→20:26)
[2025-09-13] MEDS: DUONEB 3 ML INH (07:45)
[2025-09-13] MEDS: PULMICORT 0.5 MG INH ×2 (07:46→20:01)
[2025-09-13] MEDS: SODIUM CHLORIDE 3% FOR INHALATION 1 VIAL INH (07:46)
[2025-09-13] MEDS: FLUSH (NSS) 3 FLUSH IV ×2 (10:59→12:17)
--- NOTE | 2025-09-13 11:01 | W.PN.CARDCBS ---
Addendum entered and electronically signed by Mikey Resendez MD 09/13/25 11:17:
I saw and examined the patient.
The Senior It Security Analyst's note was reviewed and I agree with the note.
Comment:
GEN: No distress, awake, sleepy
HEENT: supple, anicteric, mmm
LUNGS: CTA, no wheezes/rales
CV: Reg, S1/S2, 1/6 syst LSB, + click
ABD: soft, BS+, + tube
EXT: No edema
NEURO: Gross non-focal
SKIN: No rash
PLan:
Overall doing very poorly. PEG tube now placed to help with nutrition. Resume IV heparin and warfarin.
Will convert back to Lopressor p.o. via tube once confirmation that tube is working.. Remains in sinus rhythm.
Blood pressure continues to be very labile.
Continue medical therapy for coronary artery disease.
Hemoglobin stable at 12.1. She has a history of multiple GI bleeds
Original Note:
Today's Communication / Plan
-
Heparin gtt can be resumed now at previous dose without bolus and check PTT in 6 hours
Will check with GI about resuming warfarin, INR is 1.37 today and patient was given vitamin K on 09/09/2025
Impression / Plan
-
PCP: Dr. Haynes
Cardiology: Dr. Aramis Resendez
Oncology: Dr. Amaral
Impression:
Admitted 09/04/2025 with left hip pain
TME
Dysphagia, dysarthria likely secondary to acute/subacute infarcts in bilateral occipital lobes, choroid plexus, and extension of previous right frontal lobe infarct
s/p PEG tube 09/13/25
Septic shock requiring pressors
Group A Streptococcus bacteremia
Suspected pneumonia
Right pleural effusion
s/p right thoracentesis for 660 mL of blood tinged fluid
Left hip pain/trochanteric bursitis/gluteus tendinitis s/p left hip injection x 2 as outpatient
h/o recurrent GIB (05/02/25 until 05/05/25, readmitted 05/06/25)
Chronic warfarin OAC managed by [facility] cardiology
h/o CVA
h/o CVA 2005
h/o right MCA stroke with M2 occlusion in setting of subtherapeutic INR while off Coumadin 07/15/21
patient bridged with Lovenox prior to colonoscopy 07/10/21, but no Lovenox bridge post-colonoscopy
Mechanical AVR pediatric size 2006
Mitral regurgitation with mitral stenosis
Tricuspid regurgitation with pulmonary hypertension
h/o Hodgkin's lymphoma treated with radiation to left neck and pelvis 1973
h/o breast CA
2018 treated with B/L mastectomy, patient refused chemotherapy and radiation, but eventually agreeable to Tamoxifen
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
Recurrence of breast cancer 2021 - did not tolerate Ibrance or Ribociclib
Labile HTN
Hypothyroidism
Chronic HFpEF
CAD with 60 to 70% ostial to proximal LM stenosis, 100% JEEP DRIVER proximal RCA with [id number] collaterals by cardiac cath 10/28/2024
LHC 10/28/2024: Eccentric 60-70% ostial to proximal Left main, difficult to advance IVUS catheter. iFR positive at 0.76. Elevated filling pressures, normal cardiac output/index, occluded right coronary artery with brisk collater, Nonobstructive plaque
of LAD and circumflex, pulmonary artery pressure 62/26, pulmonary capillary wedge pressure is 22, right atrial pressure is 11, cardiac index is 2.5
Echo 08/26/2022: Hyperdynamic LV.� EF 70 to 75%.� Mild to moderate MS peak/mean gradient 20/7 mmHg.� Moderate to severe MR.� Well-seated mechanical AVR with peak/mean gradient 11/6 mmHg without regurgitation.� Moderate to severe TR.� Moderate
pulmonary hypertension with PAP 50 to 55 mmHg.
Echo 02/10/2023: EF 60 to 65%.� Moderate mitral stenosis mean gradient 11 with severe MR.� Well-seated mechanical AVR with peak/mean gradient 15/8 mmHg, mild to moderate TR, mild pulmonary hypertension with PAP 45 to 48 mmHg.
Echo 11/19/2023: EF 70-75%, moderate MS with peak/mean gradients 15/8 mmHg, moderate MR, mechanical prosthetic AVR with peak/mean gradients 16/9 mmHg, trace AR, moderate TR, estimated PAP 30-35 mmHg
Echo 10/25/24: EF 55-60%, moderate mitral stenosis with mean gradient of 8 mmHg, mild to moderate MR, mechanical AVR with mean gradient of 10, no AI, mild to moderate TR with PA pressure 40-45
Echo 09/05/2025: EF 55 to 60%. Mild LVH. Mildly dilated LA and RA. Mild to moderate mitral regurgitation. Well-seated mechanical aortic valve peak/mean gradient 7/4 mmHg. No AI. Moderate TR with PAP 39 mmHg.
Carotid ultrasound 09/05/25: Minimal calcified carotid bulb plaque on each side, measurements suggestive of less than 50% stenosis on each side.
Plan:
-Admitted 09/04/2025 with left hip pain then developed acute altered mental status and slurred speech and was found to have septic shock requiring pressors which have been weaned.
-Patient had successful PEG tube placed on 09/13/2025.
-Resume heparin gtt at previous rate without bolus and recheck PTT in 6 hours on 09/13/2025, reviewed with GI PROPELLANT CHARGE LOADER and patient's RN by me.
-Patient remains on Rocephin 2 grams IV daily and ID is following for Strep A bacteremia.
-DAVE 09/07/25 did not show valvular vegetation to suggest infective endocarditis
-Patient found to have new acute/subacute CVAs involving posterior circulation and in bilateral occipital lobe suggestive of embolic source on MRI 09/05/25. No evidence of KALIA thrombus on DAVE 09/07/25
-Patient also noted to have newly diagnosed paroxysmal A-fib this admission. Cardizem gtt used for rate control earlier this admission and then stopped. Outpatient dose of Toprol-XL was stopped due to dysphagia and eventually Lopressor PO also had
to be stopped. Patient currently ordered Lopressor 5 mg IV every 4 hours, but now that PEG tube is in place will transition back to Lopressor which can be crushed and delivered via PEG.
-Patient had an approximately 4-second pause on telemetry 09/09/2025 at 5 AM, no additional pauses noted. No indication for PPM.
-Patient has history of pediatric mechanical aortic valve maintained on Coumadin as outpatient with goal INR 2.5-3.0. INR was greater than 8 on 09/09/2025 and that correlated with an Hgb of 13.1, the patient was still given vitamin K 2.5 mg PO x 1
on 09/09/2025. INR has now dropped precipitously down to 1.37 on 09/13/2025 on my review of labs.
-Outpatient INRs are managed by cardiology as an outpatient and are generally drawn through the hospital either at the outpatient lab or the outpatient infusion center. Patient has had 3 different home monitors arranged for her over the last 5 years
and she returns each 1 and says that she is unable to perform fingerstick due to history of Raynaud's.
Progress Note - Linux Systems Administrator
Subjective
Date of Service: September 13, 2025
Patient is groggy following PEG tube placement this morning
Objective
Labs:
09/13/25 05:02
09/13/25 05:02
Labs
Hgb 12.1 g/dL (12.0-16.0) 09/13/25 05:02
Hct 36.6 % (37.0-47.0) L 09/13/25 05:02
Plt Count 244 10^3/uL (130-400) 09/13/25 05:02
PT 17.1 Sec (11.4-14.6) H 09/13/25 05:02
INR 1.37 09/13/25 05:02
APTT 83.9 Sec (23.4-35.0) H 09/13/25 00:35
Sodium 137 mmol/L (135-145) D 09/13/25 05:02
Potassium 3.8 mmol/L (3.5-5.1) 09/13/25 05:02
BUN 54 mg/dl (7-17) H 09/13/25 05:02
Creatinine 1.0 mg/dL (0.6-1.0) 09/13/25 05:02
Glucose 124 mg/dl (70-99) H 09/13/25 05:02
Troponins
09/12/25
04:51
Troponin I 0.526 H*
Vital Signs and I&O:
Vital Signs
Temp Pulse Resp BP Pulse Ox
97.3 F 84 16 136/53 95
09/13/25 07:15 09/13/25 07:50 09/13/25 07:50 09/13/25 07:15 09/13/25 10:30
Vital Signs
Temp Pulse Resp BP Pulse Ox
97.3 F 84 16 136/53 95
09/13/25 07:15 09/13/25 07:50 09/13/25 07:50 09/13/25 07:15 09/13/25 10:30
Intake & Output
09/11/25 09/12/25 09/13/25 09/14/25
06:59 06:59 06:59 06:59
Intake Total 600 / 600 542 / 542 200 / 200
Output Total 175 / 175 200 / 200
Balance 600 / 600 367 / 367 0 / 0
Physical Exam
Physical Exam
GEN: NAD, thin, pale
LUNGS: RA. No audible wheeze.
CV: SR on telemetry.
--- NOTE | 2025-09-13 11:56 | PN.CDI ---
CDI
- -
CDI:
Physician Documentation Request
Admit Date: 09/04/25 05:43
Dear Doctor,
Please review the following and provide your response in the progress notes.
Clinical Indicators:
Pt admitted with Sepsis from bacteremia.
09/08 Pt Rapid Afib
09/08 RN Note: ' pt c/o difficulty breathing and SOB at change of shift. pt on room air 86% place pt on 4L o2 92%'
Laboratory Tests
09/04/25 09/08/25 09/12/25
02:51 21:19 04:51
Troponin I 0.025 1.050 H* 0.526 H*
Based on the above, could you clarify in the progress notes, the appropriate diagnosis, if significant, that supports the above Lab abnormalities and additional evaluation, monitoring and/or treatment rendered:
Non-ischemic myocardial injury
Insignificant abnormal lab values
Other
Use of terms such as suspected, likely, concern for, or probable (associated with a specific diagnosis that is being evaluated, monitored, or treated as if it exists) are acceptable and can be coded in the inpatient setting, when documented at the
time of discharge.
Thank you,
Maureen Rangel RN, BSN
CDI Specialist
[place] [employer]
Please use your independent medical judgment in providing your response.
[2025-09-13] MEDS: ROBITUSSIN 200 MG TUBE ×4 (12:12→23:23)
[2025-09-13] MEDS: ROCEPHIN 2000 MG IV (12:16)
[2025-09-13] MEDS: STERILE WATER FOR INJECTION 20 ML IV (12:16)
--- NOTE | 2025-09-13 14:08 | W.PN.ID1 ---
Date of Service
Date of Service: September 13, 2025
Today's Communication
Tomorrow transition to enteric abx.
Assessment / Plan
# Group A streptococcus bacteremia, suspect lung source
# Multiple acute/subacute CVA; DAVE no source of embolic CVA
# Dysphagia/Aspiration PNA
# Leukocytosis - improving
#s/p Septic shock
# Fever resolved
# Left hip pain/trochanteric bursitis/gluteus tendinitis s/p left hip injection x 2
# Gastroparesis
# Severe protein-calorie malnutrition
# Hx Splenectomy
# Stage 3 breast ca (declined further tx)
# Mechanical AVR - DAVE neg vege
- Of note, with recent GAS pharyngitis. Pt's throat swab neg.
- Repeat blood cx's x 2 negative
- DAVE: no vegetation
- Right pleural effusion s/p thora 660cc serosanguineous fluid; exudative, cx negative
- Aspiration precaution
- 09/13 s/p PEG placement
- Continue IV ceftriaxone (d9).
- Tomorrow transition to enteric abx.
Chief Complaint
-: Bacteremia
Subjective / Review of Systems
Drowsy from anesthesia.
Vital Signs / Physical Exam
Vital Signs
Vital Signs
Temp Pulse Resp BP Pulse Ox
98.7 F 98 18 138/60 97
09/13/25 13:35 09/13/25 13:35 09/13/25 13:35 09/13/25 13:35 09/13/25 13:35
Physical Exam
Constitutional: Comfortable, Chronically Ill and Cachetic
Eyes: No Conjunctival Hemorrhage and Sclera Anicteric
Cardiovascular: Regular Rate and S1/S2
Pulmonary: Non Labored
Gastrointestinal: Soft, Non Tender and Non Distended
Extremities: Negative Edema
Objective Data
Lab Data
Lab Results
09/13/25 05:02
09/13/25 05:02
PT 17.1 Sec (11.4-14.6) H 09/13/25 05:02
INR 1.37 09/13/25 05:02
APTT 83.9 Sec (23.4-35.0) H 09/13/25 00:35
Estimated Creat Clear 29 ml/min 09/13/25 05:02
Lactic Acid 1.9 mmol/L (0.7-2.0) 09/05/25 21:46
Total Bilirubin 0.8 mg/dl (0.2-1.3) 09/13/25 05:02
AST 21 U/L (14-36) 09/13/25 05:02
ALT 18 U/L (0-35) 09/13/25 05:02
Alkaline Phosphatase 108 U/L (38-126) 09/13/25 05:02
Most recent labs reviewed.
Micro Results:
09/06/25 04:18 Blood Culture - Final
Blood/Venous No Growth - Final Report
09/05/25 14:28 Blood Culture - Final
Blood/Venous No Growth - Final Report
09/04/25 02:50 Blood Culture - Final
Blood/Venous Streptococcus pyogenes
Gram Stain - Final
09/04/25 02:50 Blood Culture - Final
Blood/Venous Streptococcus pyogenes
Gram Stain - Final
09/06/25 11:09 Body Fluid Culture - Final
Pleural Fluid No Growth After 72 Hours
Gram Stain - Final
09/06/25 11:09 Acid Fast Bacilli Smear - Preliminary
Pleural Fluid Acid Fast Bacilli Culture - Preliminary
09/05/25 13:59 Streptococcus Screen (VANDANA) - Final
Throat/Pharynx No Beta Hemolytic Streptococci Isolated
Streptococcus Rapid Screen - Final
Rapid Strep Screen (Group A) Negative
09/05/25 13:59 Throat Culture - Final
Throat/Pharynx Usual Respiratory Tawnya
09/04/25 02:51 Urine Culture - Final
Urine NO GROWTH
09/11/25 CXR: There is improved aeration of the right lung with a tiny right-sided pleural effusion. No pneumothorax.
09/08/25 CXR: Small to moderate right pleural effusion with associated atelectasis and/or pneumonia, progressed. Small left pleural effusion with associated atelectasis and/or pneumonia, slightly improved. Suspect mild CHF.
09/06/25 CXR: Interval increase in opacification of the right lower lung, most likely atelectasis. Evidence for small to moderate right pleural effusion including lateral loculation. Small left pleural effusion. Parenchymal opacity within the left
lower lung, mainly medially, with differential considerations of atelectasis and/or pneumonia.
11/05/24 Brain MRI: There are small foci of acute to subacute infarct involving both occipital lobes; suspicious for a focus of acute to subacute infarct involving the choroid plexus, although can also be seen with choroid plexus xanthogranuloma.
Findings would suggest focal area of acute to subacute infarct in the right frontal lobe, superior to the region of encephalomalacia.
09/04/25 CXR: The lungs are clear.
09/04/25 CT a/P: Markedly limited CT of the abdomen and pelvis as a result of numerous factors,
09/04/[address]: At least 3 cm focus of decreased attenuation centered about the right sylvian fissure which could represent an intracranial mass with edema such as metastatic disease. Subacute to chronic infarct cannot be differentiated on this CT
without intravenous contrast. Recommend Brain MRI without and with contrast for more complete evaluation.
09/04/25 L HIP XRAY:No acute fracture or dislocation. The hip joint space is maintained. Gluteus medius calcific tendinosis.
08/17/25 outside MRI wo contrast left hip report: ' There is evidence of a tear of the distal gluteus minimus muscle and tendon at the level of the greater trochanter with evidence of peritrochanteric edema and fluid. Incidental inguinal lymph
nodes are noted bilaterally.
[2025-09-13] MEDS: ANESTHETIC LOZENGE 1 LOZENGE PO (14:10)
--- NOTE | 2025-09-13 16:00 | CM ---
Reviewed SNF referral results with Spouse, [facility] and [facility] both declined. 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 I spoke with spouse and he stated the goal is get her to an independent state and go home.
HE stated there have been no discussions about LTC. I did not broach the subject of hospice, I do not think the spouse is ready for this discussion.The spouse will look for additional facilities to refer to.
Plan: DC to SNF when there is an accepting facility
[2025-09-13 17:51] LABS: APTT 65.0 Sec (23.4-35.0)
[2025-09-13] MEDS: LOPRESSOR 50 MG TUBE (20:26)
[2025-09-14] VITALS (7 sets, daily range): BP systolic 111–151; BP diastolic 61–83; PULSE 94; BMI 17.2
[2025-09-14 00:31] LABS: APTT 149.8 Sec (23.4-35.0)
[2025-09-14] MEDS: NSS (PRESERVATIVE FREE) 0.125 ML IV (04:05)
[2025-09-14] MEDS: ATIVAN 0.25 MG IV ×2 (04:05→22:06)
[2025-09-14] MEDS: ROBITUSSIN 200 MG TUBE ×5 (04:06→20:10)
[2025-09-14] MEDS: APRESOLINE 5 MG IV ×3 (06:11→17:22)
--- NOTE | 2025-09-14 07:10 | W.PN.HOSP.TC ---
Addendum entered and electronically signed by Randall Castañeda MD 09/14/25 16:08:
Attending�addendum:
I saw and evaluated the patient independently. I reviewed and discussed the resident�s note and agree with findings and plan as documented in the resident�s note.� patient seen and examined at bedside, patient looks tired, increase secretion, cannot
tolerate tube feeding, at bedside.
S/P PEG tube placed yesterday, Coumadin to be resumed tonight.
Physical�exam:
GENERAL : Patient is awake, looks tired, cachectic
HEENT: Nonicteric sclerae, PERRLA, EOMI. Oropharynx clear. Moist mucous membranes. Conjunctivae appear well perfused.
CHEST: Chest wall is nontender.
HEART: Regular rate and rhythm without murmurs.
LUNGS: Clear to auscultation bilaterally.
ABDOMEN: Soft, positive bowel sounds, nontender, no organomegaly.
RECTAL: Deferred.
MUSCLES/EXTREMITIES: No abnormal range of motion, no swelling.SKIN: No rash, no excessive bruising, petechiae, or purpura.
NEUROLOGIC: Awake
�
Assessment/plan:
Septic shock.
Bacteremia.
Continue antibiotics as per ID.
Switched to oral antibiotics once PEG tube
Acute metabolic encephalopathy.
Patient still confused
New onset A-fib.
Continue heparin drip, metoprolol Coumadin
Severe protein calorie malnutrition.
Status post PEG tube
CODE STATUS:DNR
DVT prophylaxis: heparin drip
Diet: N.p.o.
Family communication: Discussed with at bedside
Disposition: Monitor for additional 24-hour if no improvement to consider hospice
�
Total time spent on today�s encounter was 60 minutes which included time spent in counseling the patient/family regarding diagnosis and treatment plan as listed above, goals of care, and symptom management. Case was discussed with nursing staff,
specialists, and care coordinators/case management. All labs and imaging personally reviewed by me. Remainder the time spent in detailed review of previous records, lab data, imaging, and other medical provider documentation.
Original Note:
Today's Communication/Plan
-
Start tube feeding
transitionto cephalexin
Follow heparin ggt per protocol
Resume coumadin QPM
Assessment / Plan
Assessment / Plan
09/04/25 Rapid Response Deteriorating Mental Status 2/2 Developing Severe Sepsis (Leukocytosis, Fever, end organ damage [place])
Acute Metabolic Encephalopathy
Septic shock from GAS with bacteremia
-After study, Sepsis due to Bacteremia with organ dysfunction of hypotension was present on admission
-Central Lab Technician consult, input appreciated
-Transferring from ICU to telemetry
-Septic shock Levophed on hold improving BP. Goal MAP>65
-Blood Cx's drawn in ED, Strep Pyogenes (+)
-ID consult, input appreciated
-Started on Renally dose Cefazolin per discussion with ID- Replace Cefazolin with Ceftriaxone #D10 transition to cephalexin #D1 500mg suspension Q8h till 09/18/2025
-Pt's + for Strep throat. Repeat blood C's x2- No growth
-Throat Cx Group B strep - negative
-Rapid strep for GAS-negative
-IVF with D5W
-Pleural fluid Cx- neg
-PMR consult, input appreciated - subacute rehab
-productive mucous , suction of throat - dc
-Follow temp- tylenol prn
-Follow vitals
CT head scan 09/11/2025 for altered mental status
-There is evolving known infarction and chronic encephalomalacia within the lateral right frontal lobe.
-The known recent prior bilateral occipital infarcts are not well visualized on this examination.
-There is no evidence of acute intracranial hemorrhage
Chest Xray 09/11/2025 for residual pleural effusion
-There is improved aeration of the right lung with a tiny right-sided pleural effusion. No pneumothorax.
Chest Xray 09/08/25
-Small to moderate right pleural effusion with associated atelectasis and/or pneumonia, progressed
-Small left pleural effusion with associated atelectasis and/or pneumonia, slightly improved
-Suspect mild CHF
New Atrial fibrillation
- Overnight she had HR >150's irregular, BP 135/53 98.2, 22 95% 2l , EKG Afib with RVR, no hx of Afib noted
- Received Metoprolol, Cardizem
- Troponin 1.050 --> 0.526--> High likely from non ischemic myocardial injury
- Afib likely due to ? aspiration ? pleural effusion? hypovolumic?
- CHADSVASC score 7
- Consult cardiology, input appreciated
--Toprol to 50mg BID tube for rate control
--Not PPM candidate at present given coagulopathy as well as bacteremia / sepsis
--Monitor HR
Malnutrition
PEG tube placement
-Likely Severe Protien Calorie Malnutrition vs cachexia
-Consult Dietary RN
-pt weighted 56kg now 35.5, BMI 16.4
-Pt and Silvino want to proceed with PEG tube placement for progressive weight loss.
-Consult GI, input appreciated
-PEG tube placement 09/13 - Hx of gastroparesis, may have difficulty tolerating PEG tube feeds, if cant tolerate may need to have IR convert that to a GJ tube
-Hold Heparin ggt 4 hours prior to the PEG placement - started heparin ggt 1 hour after PEG
-Start Warfarin 2mg QPM- on hold per GI
-use PEG 09/13 for meds and water, may use PEG 09/14 for feedings
-antibiotic ointment on site and change dressing QD
-Consult Nutrition, follow recs
-Check Mg, K, Phos before and after meals
Endoscopy 09/12/2025
- A Grade A reflux esophagitis with no bleeding.
- Small hiatal hernia.
- Two gastric polyps not biopsied since need to restart Heparin.
- Non-bleeding duodenal ulcer with no stigmata of bleeding.
- A PEG placement was successfully completed.
- No specimens collected.
Oral thrush
-Continue Nystatin Suspension - swish and spit
Hypertensive urgency
- L187/82, R 194/76 - improved
- IV hydralazine 5mg Q6h, Hold if SBP <130
Hypernatremia
-Na 151--> D5W 60ml/h--> Na 147-->D5W continue until tm 60ml/h-->Na137
Nausea and Vomiting
Coffee Ground Emesis vs Bilious Emesis
-Warfarin was on hold at the admission because of possible GI Bleeding exacerbated by Warfarin
-Suspect previous coffee ground material secondary to bilious emesis related to sepsis and known gastroparesis
-Hx of GIB with recent scopes in April
-09/04 NGT placed to suction w/ relief symptoms- Patient had NG tube which was pulled 09/06/2025 with no significant finding of coffee-ground emesis
-CT abd/pelvis w/o contrast limited study noted, possible gastric outlet obstruction vs gastroparesis
-Hb 8.7, received 1PRBC this admission. transfuse if Hgb<8 - Hb 12.6
-Consult GI, input appreciated
-Protonix BID
-Avoid NSAID
-Improved
Pleural effusion
- On POCUS- right sided moderate pleural effusion
- Suspect for sepsis site with Bc strep. pyogenes- empyema?
- thoracentesis was performed 09/06. a total of 660 mL of serosanguineous fluid was collected
- Acid Fast Bacilli and Fluid Cx - neg prelim
- Per Light's Criteria PF/Serum Protein= 0.58= exudative, PF/Serum LDH=0.517=does not meet criteria
- Meets 1 Lights criteria - exudative, gross look of serosanginous fluid 2/2 ? infection, ? pseudoexudative 2/2 home lasix, pathology neg for malignancy
- Pro BNP >72841 , transudative 2/2 HF?
- Pleural effusion improved- dc furosemide
H/o Breast Cancer with brain lesions, metastasis vs embolic stroke
CT scan of head
At least 3 cm focus of decreased attenuation centered about the right sylvian fissure which could represent an intracranial mass with edema such as metastatic disease.
Subacute to chronic infarct cannot be differentiated on this CT without intravenous contrast.
Recommend Brain MRI without and with contrast for more complete evaluation.
Brain MRI w/wo contrast
There is no MR evidence for intracranial metastatic disease
There are small foci of acute to subacute infarct involving both occipital lobes
Focal region of abnormal restricted diffusion involving the choroid plexus within the atria of the right lateral ventricle.
Given the findings in the occipital lobe, this is suspicious for a focus of acute to subacute infarct involving the choroid plexus, although can also be seen with choroid plexus xanthogranuloma
Focal area of encephalomalacia involving the inferior right frontal and superior right temporal lobe, in the region of the insula. There is a region of abnormal diffusion extending superiorly and anteriorly to the region of encephalomalacia, and
signal abnormality extends appears increased compared to previous MRI in June 2021.
Findings would suggest focal area of acute to subacute infarct in the right frontal lobe, superior to the region of encephalomalacia
Carotid US- Minimal calcified carotid bulb plaque on each side, measurements suggestive of less than 50% stenosis on each side
-last Tx was in October
-follows with Dr Amaral, recently received outpt IV iron infusions for anemia
-Consulted Neurology, input appreciated
-posterior circulation areas of ischemia which are suggestive of embolic stroke in bilateral occipital lobes
-Provide with AC, risk of hemorrhagic conversion of small posterior lesions unlikely. Avoid bolus IV heparin
-DAVE today 09/07 - No evidence of cardioembolic source of stroke, no evidence for endocarditis
Dysarthria
Dysphagia
-likely 2/2 acute/subacute infarcts in bl occipital lobes, choroid plexus, and extension of previous right frontal lobe infarct
-New Speech eval - NPO
-VSE 09/09/2025
- Fluoroscopic evidence of laryngeal penetration and aspiration was demonstrated.
- Vallecular residue noted throughout study with all barium consistencies.
- Brief fluoroscopy of the thoracic esophagus did not demonstrate any residue
-NPO was recommended, Pt and her Silvino stated wanting to continue her diet full liquids - understanding the risk of aspiration. Risks from aspiration and her DNI, DNR status were discussed with them.
Acute on CKD stage III
-likely pre-renal poor oral intake nausea vomiting
-IVF support
-avoid nephrotoxins, prn Toradol discontinued
-monitor renal function
Mechanical Aortic Valve Replacement on Coumadin
HFpEF (recent ECHO EF 55-60%)
ASCVD
Prior AL, CVA with L sided weakness.
-AC was held in view of acute drop in Hb and concern for brain emboli with bacteremia
-Continue heparin ggt per cylinder tester, monitor APTT - Discontinued IV heparin on 09/07/2025
-Repeat Lasix 20mg IV x 1 on 09/07 then switch to 20mg Lasix PO QD
-Resume Metoprolol 25mg PO BID
-therapeutic INR 2.5-3
-Heparin ggt 09/11, Coumadin 2 mg 09/11 QPM -- Hold Coumadin QPM, hold heparin ggt 4 hours prior to PEG
-Aptt >200 follow hearin ggt protocols, INR 1.32 Resume Coumadin QPM
-Follow Daily INR, APTT
TTE
1. Compared to a prior transthoracic echocardiogram study from 07/25/2025 no significant changes are seen.
2. Left ventricle is small in size. Mild concentric left ventricular hypertrophy. Preserved left ventricular systolic function. Left ventricular ejection fraction is 55-60% by visual estimate.
3. Well seated mechanical aortic valve replacement. Peak/mean gradients across the aortic valve are 7/4 mmHg respectively. No aortic regurgitation.
4. Moderate tricuspid regurgitation. Estimated pulmonary artery pressure of 39 mmHg assuming a right atrial pressure of 3 mmHg.
5. Thickened calcified mitral valve leaflets with adequate excursion. Dense mitral annular calcification. There is at least mild to moderate mitral regurgitation which may have been underestimated due to mitral annular calcification.
Acute on Chronic Left Hip Pain
-left hip greater trochanteric bursitis and gluteal tendinitis, follows Dr Caban
-Hip X-ray appreciated no acute fracture or dislocation
-Orthopedic eval appreciated steroid injection given 09/04/25- ice and tylenol prn
-PT/OT eval - acute rehab
-PMR consult, input appreciated - subacute rehab
Anxiety
-0.25mg Ativan Q6H
Hypothyroidism
-Levothyroxine 88mcg PO QD - on hold due to NPO for meds status #D4 - resume levothyroxine by tube
-For IV levothyroxine policy is to wait 3 days NPO before starting IV dose. IV dose is 75% of PO so reduce 88mcg PO to 66mcg IV QD on 09/13
-Last PO levothyroxine was on 09/09
Electrolyte abnormality
-hypocalcemia- repleted
Constipation
-Senokot-S , Miralax prn
-resolved
Pulmonary HTN
- RHC 10/2024, mPA 41, PCWP 22 with CI 2.5, PVR 5.8.
- Group II with h/o AVR, elevated PCWP. Also elevated PVR suggestive of concomitant pre-capillary Pulmonary HTN
DVT ppx SCD
DNR as per POA Uziel
Dispo: SNF
Anticipated Discharge: > 48 hours
Subjective/Interval History
-
Date of Service: September 14, 2025
She is sleeping on the bed. Woke her up she was responsive. Per she has been sleepy since PEG tube placement. She denies CP, Palpitations, abdominal pain. She has a lot of secretions.
Objective Data
-
Labs:
Laboratory Results
09/14/25 09/14/25 09/14/25
00:11 06:00 07:45
WBC Pending
Hgb Pending
Hct Pending
Plt Count Pending
PT Pending
INR Pending
APTT 149.8 H Pending
Sodium Pending
Potassium Pending
Chloride Pending
Carbon Dioxide Pending
BUN Pending
Creatinine Pending
Glucose Pending
Calcium Pending
Vital Signs:
Vital Signs
Temp Pulse Resp BP Pulse Ox
97.6 F 91 18 166/66 97
09/14/25 03:53 09/14/25 06:11 09/14/25 03:53 09/14/25 06:11 09/14/25 03:53
I&O
09/13/25 09/14/25 09/15/25
06:59 06:59 06:59
Intake Total 200 / 200 1335 / 1335
Output Total 200 / 200 400 / 400
Balance 0 / 0 935 / 935
Review of Systems
-
History Source: Patient
Constitutional: Reports No Symptoms
EENT: Reports Sore Throat and Mouth Pain
Respiratory: Reports No Symptoms
Cardiac: Reports No Symptoms
Abdomen/GI: Reports No Symptoms
Breast: Reports No Symptoms
Genitourinary: Reports No Symptoms
Skin: Reports No Symptoms
Neuro: Reports No Symptoms
Endocrine: Reports No Symptoms
Allergy / Immunology: Reports No Symptoms
Physical Exam
-
General: Well Developed, Appears in Distress, Conversant, Appears Chronically Ill and Cachectic
HEENT: Normocephalic, Atraumatic and Thrush (hemorrhagic spots)
Respiratory: Clear to Auscultation and Non Labored Respirations
Cardiac: Regular Rhythm and S1/S2 (master mechanic valve)
Breast: Deferred by me
GI: Soft, Nontender, Nondistended, Normal Bowel Sounds and Peg Tube
Rectal: Deferred by Provider
Musculoskeletal: No Clubbing, No Cyanosis and No Edema
Skin: Warm and Dry
Neuro: AO x 3 and Other (extraocular movements abnormal, eye not following directions)
Psych: Calm
[2025-09-14] MEDS: PULMICORT 0.5 MG INH (07:31)
[2025-09-14] MEDS: DUONEB 3 ML INH ×3 (07:31→15:52)
[2025-09-14 08:43] LABS: Hematocrit 37.4 % (37.0-47.0); Hemoglobin 12.3 g/dL (12.0-16.0); Mean Corp Hgb Conc. 32.9 g/dL (33.0-37.0); Mean Corpuscular Volume 84.4 fL (81.0-99.0); Platelet Count 254 10^3/uL (130-400); Red Cell Dist. Width 20.8 % (11.5-14.5)
[2025-09-14 08:58] LABS: INR 1.32; PT 16.9 Sec (11.4-14.6)
[2025-09-14 09:13] LABS: APTT > 200 Sec (23.4-35.0)
[2025-09-14] MEDS: PROTONIX IV 40 MG IV ×2 (09:21→20:10)
[2025-09-14] MEDS: NSS (PRESERVATIVE FREE) 10 ML IV ×2 (09:21→20:10)
[2025-09-14] MEDS: MYCOSTATIN ORAL SUSPENSION PO ×4 (09:23→20:59)
[2025-09-14] MEDS: LOPRESSOR 50 MG TUBE ×2 (09:23→20:10)
--- NOTE | 2025-09-14 09:46 | W.PN.GI.CBS2 ---
Addendum entered and electronically signed by Petra Singh MD 09/14/25 12:06:
No bleeding. Discussed with Dr. Pereira. Currently on heparin and can restart Coumadin today
Original Note:
Today's Communication / Plan
-
Okay to start using PEG today for tube feeds
Assessment / Plan
-
Pt is a 69yo with hx multiple medical problems including hodgkin's lymphoma 1969's, prior XRT, breast CA with b/l mastectomy prior RI, hypothyroidism with prior thyroidectomy, splenectomy, HTN, secondary to XRT with mech AVR, MV stenosis, CVA,
CHF, pulm HTN, prior obscure GI bleed, CKD, gastroparesis with admission with left hip pain with difficulty walking with concern for recent gluteal tear. On admission noted with sepsis with step pyogenes bacteremia, CVA, coffee ground emesis with
concern for gastroparesis after Morphine given on admission. Now asked to see for nutrition with wt loss, dysphagia, with chronic swallowing issues now worse since admission and VSE least moderate oral and moderate-severe pharyngeal dysphagia. CT
abdomen on admission with fluid filled stomach gastric outlet of gastroparesis, cannot exclude retroperitoneal/maria isabel hepatitis adenopathy, small to moderate effusion.
Prior GI work up:
05/10/25- colonoscopy Dr. steinberg - Tortuous colon - Changed to an EGD scope to get through safely.- Ileal diverticulum.
- The examination was otherwise normal on direct and retroflexion views.
- No blood found throughout the colon or terminal ileum - No specimens collected.
05/09/[address] Ulloa - Normal esophagus. - Small hiatal hernia.
- Gastritis no old or fresh blood seen - Duodenum normal. Unable to pass through jejunum using colonoscope - No specimens collected.
11/2023- capsule- [place] retained in stomach , consider endoscopic deployment
12/2023- repeat EGD with capsule at [place]- fresh blood in duodenum and proximal jejunum likely from scope trauma with capsule placement no visible angiectasias, ulcers or masses, more distally appears normal
09/09/25- VSE least moderate oral and moderate-severe pharyngeal dysphagia
1. Goals of care discussions re: nutrition/hydration. Options include: 1) continue full liquid diet with thin liquids understanding risks/complications of possible aspiration vs 2) NPO with non-oral means though this does not eliminate risk of
bottom up aspiration vs 3) combination of oral diet and non-oral means for supplemental nutrition
2. Strategies: small sips, slow rate, multiple swallows, intermittent cough/swallow
3. Non-oral medications
4. Dysphagia tx at the acute care level for education, tx.
09/11/25 HCT
There is evolving known infarction and chronic encephalomalacia within the lateral right frontal lobe. The known recent prior bilateral occipital infarcts are not well visualized on this examination. There is no evidence of acute intracranial
hemorrhage.
-nutritional eval with wt loss, decreased oral intake and abnormal VSE
-VSE with least moderate oral and moderate-severe pharyngeal dysphagia with worsening symptoms over last year
-coffee ground emesis on admission
-anemia
-hx gastroparesis
-CT on admission with fluid filled stomach gastric outlet of gastroparesis, cannot exclude retroperitoneal/maria isabel hepatitis adenopathy
-dysarthria on admission with hx prior CVA in 2020, MRI 09/05 with small foci of acute to subacute infarct involving both occipital lobes focal region and suspicious for a focus of acute to subacute infarct involving the choroid plexus, although
can also be seen with choroid plexus xanthogranuloma
-hypernatremia
-fall prior to admission with gluteal tear
-mech AVR with chronic warfarin use prior to admission
-sepsis with step pyogenes bacteremia
-new afib on admission
-mild thrombocytopenia resolved
-s/p thora
-hx occult GI bleed
-severe calorie malnutrition
other med problems:
hodgkin's lymphoma , prior XRT, breast CA with b/l mastectomy prior RI, hypothyroidism with prior thyroidectomy, splenectomy, HTN, secondary to XRT with mech AVR, MV stenosis, CVA, CHF, pulm HTN, CKD
PLAN:
Status post PEG placement 09/13/2025, was also noted to have reflux esophagitis and nonbleeding DU on EGD
Okay to start using the PEG tube today for feeds would advance very slowly and would need to watch out for possible refeeding syndrome and also has underlying gastroparesis
nutrition consult
If unable to slowly advance feeds to goal secondary to underlying gastroparesis may need to have IR changed to a GJ eventually
Continue pantoprazole twice daily no signs of bleeding currently hemoglobin stable
GI will s/o and will be available as needed
Subjective
Subjective
Date of Service: September 14, 2025
Denies any abdominal pain currently., Status post PEG placement 09/13 and tolerated well. Was also noted to have reflux esophagitis and nonbleeding DU on endoscopy. She is currently on pantoprazole twice daily
Objective
Data Reviewed
Laboratory Data:
Laboratory Results
09/14/25 08:37
Laboratory Results
PT 16.9 Sec (11.4-14.6) H 09/14/25 08:37
INR 1.32 09/14/25 08:37
APTT > 200 Sec (23.4-35.0) H* 09/14/25 08:37
Phosphorus 2.5 mg/dl (2.5-4.5) 09/13/25 05:02
Magnesium 2.0 mg/dl (1.6-2.3) 09/13/25 05:02
Total Bilirubin 0.8 mg/dl (0.2-1.3) 09/13/25 05:02
AST 21 U/L (14-36) 09/13/25 05:02
ALT 18 U/L (0-35) 09/13/25 05:02
Alkaline Phosphatase 108 U/L (38-126) 09/13/25 05:02
Vital Signs and I&O:
Vital Signs
Temp Pulse Resp BP Pulse Ox
98.1 F 92 16 136/63 95
09/14/25 07:00 09/14/25 07:36 09/14/25 07:36 09/14/25 07:00 09/14/25 07:36
I&O
09/13/25 09/14/25 09/15/25
06:59 06:59 06:59
Intake Total 200 / 200 1335 / 1335
Output Total 200 / 200 400 / 400
Balance 0 / 0 935 / 935
Physical Exam
Physical Exam
Cardiology: Normal Sinus Rhythm
Pulmonary: Clear
GI: Soft, Non Distended, Non Tender, Normal Bowel Sounds and Other (PEG site looks clean)
--- NOTE | 2025-09-14 10:40 | W.PN.CARDCBS ---
Addendum entered and electronically signed by Maurice Trent DO 09/14/25 14:53:
I saw and examined the patient.
The Lead Custodian's note was reviewed and I agree with the note.
Comment:
Plan:
Cont IV Heparin to Coumadin bridge
Cont Lopressor via tube for rate control.
Cont IV abx as per ID
Discussed with family at bedside.
Original Note:
Today's Communication / Plan
-
Continue lopressor 50mg BID via tube
INR 1.32. Goal INR 2.5 to 3.0.
Continue heparin bridge
Impression / Plan
-
PCP: Dr. Haynes
Cardiology: Dr. Aramis Resendez
Oncology: Dr. Amaral
Impression:
Admitted 09/04/2025 with left hip pain
TME
Dysphagia, dysarthria likely secondary to acute/subacute infarcts in bilateral occipital lobes, choroid plexus, and extension of previous right frontal lobe infarct
s/p PEG tube 09/13/25
Septic shock requiring pressors
Group A Streptococcus bacteremia
Suspected pneumonia
Right pleural effusion
s/p right thoracentesis for 660 mL of blood tinged fluid
Left hip pain/trochanteric bursitis/gluteus tendinitis s/p left hip injection x 2 as outpatient
h/o recurrent GIB (05/02/25 until 05/05/25, readmitted 05/06/25)
Chronic warfarin OAC managed by [facility] cardiology
h/o CVA
h/o CVA 2005
h/o right MCA stroke with M2 occlusion in setting of subtherapeutic INR while off Coumadin 07/15/21
patient bridged with Lovenox prior to colonoscopy 07/10/21, but no Lovenox bridge post-colonoscopy
Mechanical AVR pediatric size 2006
Mitral regurgitation with mitral stenosis
Tricuspid regurgitation with pulmonary hypertension
h/o Hodgkin's lymphoma treated with radiation to left neck and pelvis 1973
h/o breast CA
2018 treated with B/L mastectomy, patient refused chemotherapy and radiation, but eventually agreeable to Tamoxifen
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
Recurrence of breast cancer 2021 - did not tolerate Ibrance or Ribociclib
Labile HTN
Hypothyroidism
Chronic HFpEF
CAD with 60 to 70% ostial to proximal LM stenosis, 100% [employer] proximal RCA with [id number] collaterals by cardiac cath 10/28/2024
LHC 10/28/2024: Eccentric 60-70% ostial to proximal Left main, difficult to advance IVUS catheter. iFR positive at 0.76. Elevated filling pressures, normal cardiac output/index, occluded right coronary artery with brisk collater, Nonobstructive plaque
of LAD and circumflex, pulmonary artery pressure 62/26, pulmonary capillary wedge pressure is 22, right atrial pressure is 11, cardiac index is 2.5
Echo 08/26/2022: Hyperdynamic LV.� EF 70 to 75%.� Mild to moderate MS peak/mean gradient 20/7 mmHg.� Moderate to severe MR.� Well-seated mechanical AVR with peak/mean gradient 11/6 mmHg without regurgitation.� Moderate to severe TR.� Moderate
pulmonary hypertension with PAP 50 to 55 mmHg.
Echo 02/10/2023: EF 60 to 65%.� Moderate mitral stenosis mean gradient 11 with severe MR.� Well-seated mechanical AVR with peak/mean gradient 15/8 mmHg, mild to moderate TR, mild pulmonary hypertension with PAP 45 to 48 mmHg.
Echo 11/19/2023: EF 70-75%, moderate MS with peak/mean gradients 15/8 mmHg, moderate MR, mechanical prosthetic AVR with peak/mean gradients 16/9 mmHg, trace AR, moderate TR, estimated PAP 30-35 mmHg
Echo 10/25/24: EF 55-60%, moderate mitral stenosis with mean gradient of 8 mmHg, mild to moderate MR, mechanical AVR with mean gradient of 10, no AI, mild to moderate TR with PA pressure 40-45
Echo 09/05/2025: EF 55 to 60%. Mild LVH. Mildly dilated LA and RA. Mild to moderate mitral regurgitation. Well-seated mechanical aortic valve peak/mean gradient 7/4 mmHg. No AI. Moderate TR with PAP 39 mmHg.
Carotid ultrasound 09/05/25: Minimal calcified carotid bulb plaque on each side, measurements suggestive of less than 50% stenosis on each side.
Plan:
-Admitted 09/04/2025 with left hip pain then developed acute altered mental status and slurred speech and was found to have septic shock requiring pressors which have been weaned.
-Found to have new acute/subacute CVAs involving posterior circulation and in bilateral occipital lobe suggestive of embolic source on MRI 09/05/25. No evidence of KALIA thrombus on DAVE 09/07/25
-Continues on IV abx for Strep A bacteremia per ID recommendations. DAVE 09/07/25 did not show valvular vegetation to suggest infective endocarditis
-Patient had successful PEG tube placed on 09/13/2025.
-New paroxysmal atrial fibrillation noted this admission. Now on Lopressor 50 mg BID via tube for rate control.
-Approx 4 second pause noted on telemetry 09/09/2025. No further pauses noted. No indication for PPM at this time.
-h/o pediatric mechanical aortic valve. Maintained on coumadin as OP with goal INR 2.5 to 3.0.
-INR was >8 on 09/09/2025 and that correlated with Hgb of 13.1, the patient was still given vitamin K 2.5 mg PO x 1 on 09/09/2025. INR down to 1.32 09/14. Warfarin to be resumed via tube tonight.
-Outpatient INRs are managed by cardiology as an outpatient and are generally drawn through the hospital either at the outpatient lab or the outpatient infusion center. Patient has had 3 different home monitors arranged for her over the last 5 years
and she returns each 1 and says that she is unable to perform fingerstick due to history of Raynaud's.
Progress Note - Acute Care Nurse Practitioner
Subjective
Date of Service: September 14, 2025
Continues to feel poorly. HRs stable
Objective
Labs:
09/14/25 08:37
Labs
Hgb 12.3 g/dL (12.0-16.0) 09/14/25 08:37
Hct 37.4 % (37.0-47.0) 09/14/25 08:37
Plt Count 254 10^3/uL (130-400) 09/14/25 08:37
PT 16.9 Sec (11.4-14.6) H 09/14/25 08:37
INR 1.32 09/14/25 08:37
APTT > 200 Sec (23.4-35.0) H* 09/14/25 08:37
Sodium Cancelled 09/14/25 08:37
Potassium Cancelled 09/14/25 08:37
BUN Cancelled 09/14/25 08:37
Creatinine Cancelled 09/14/25 08:37
Glucose Cancelled 09/14/25 08:37
Troponins
09/12/25
04:51
Troponin I 0.526 H*
Vital Signs and I&O:
Vital Signs
Temp Pulse Resp BP Pulse Ox
98.1 F 92 16 136/63 95
09/14/25 07:00 09/14/25 07:36 09/14/25 07:36 09/14/25 07:00 09/14/25 09:40
Vital Signs
Temp Pulse Resp BP Pulse Ox
98.1 F 92 16 136/63 95
09/14/25 07:00 09/14/25 07:36 09/14/25 07:36 09/14/25 07:00 09/14/25 09:40
Intake & Output
09/12/25 09/13/25 09/14/25 09/15/25
06:59 06:59 06:59 06:59
Intake Total 542 / 542 200 / 200 1335 / 1335
Output Total 175 / 175 200 / 200 400 / 400
Balance 367 / 367 0 / 0 935 / 935
Physical Exam
Physical Exam
GEN: NAD, thin, pale
LUNGS: RA. No audible wheeze.
CV: SR on telemetry.
[2025-09-14 11:07] LABS: Blood Urea Nitrogen 31 mg/dl (7-17); Calcium 7.8 mg/dl (8.4-10.2); Carbon Dioxide 20 mmol/L (22-30); Chloride 106 mmol/L (98-107); Estimated Creatinine Clearance 38 ml/min; Glucose 113 mg/dl (70-99); Magnesium 1.9 mg/dl (1.6-2.3); Potassium 3.9 mmol/L (3.5-5.1); Sodium 129 mmol/L (135-145); eGFR > 60.00
[2025-09-14] MEDS: HEPARIN 25000 UNITS/250 ML IV (11:34)
--- NOTE | 2025-09-14 11:57 | W.PN.ID1 ---
Date of Service
Date of Service: September 14, 2025
Today's Communication
Transition IV ceftriaxone (d10) to cephalexin suspension 500mg q8 through 09/18.
Assessment / Plan
# Group A streptococcus bacteremia, suspect lung source
# Multiple acute/subacute CVA; DAVE no source of embolic CVA
# Dysphagia/Aspiration PNA
# Leukocytosis - improving
#s/p Septic shock
# Fever resolved
# Left hip pain/trochanteric bursitis/gluteus tendinitis s/p left hip injection x 2
# Gastroparesis
# Severe protein-calorie malnutrition
# Hx Splenectomy
# Stage 3 breast ca (declined further tx)
# Mechanical AVR - DAVE neg vege
- Of note, with recent GAS pharyngitis. Pt's throat swab neg.
- Repeat blood cx's x 2 negative
- DAVE: no vegetation
- Right pleural effusion s/p thora 660cc serosanguineous fluid; exudative, cx negative
- Aspiration precaution
- 09/13 s/p PEG placement
- Transition IV ceftriaxone (d10) to cephalexin suspension 500mg q8 through 09/18.
Chief Complaint
-: Bacteremia
Subjective / Review of Systems
Still drowsy.
Vital Signs / Physical Exam
Vital Signs
Vital Signs
Temp Pulse Resp BP Pulse Ox
98.1 F 92 16 136/63 95
09/14/25 07:00 09/14/25 07:36 09/14/25 07:36 09/14/25 07:00 09/14/25 09:40
Physical Exam
Constitutional: Comfortable, Chronically Ill and Cachetic
Cardiovascular: Regular Rate and S1/S2
Pulmonary: Clear and Non Labored
Gastrointestinal: Soft, Non Tender and Non Distended
Objective Data
Lab Data
Lab Results
09/14/25 08:37
09/14/25 10:06
PT 16.9 Sec (11.4-14.6) H 09/14/25 08:37
INR 1.32 09/14/25 08:37
APTT > 200 Sec (23.4-35.0) H* 09/14/25 08:37
Estimated Creat Clear 38 ml/min 09/14/25 10:06
Lactic Acid 1.9 mmol/L (0.7-2.0) 09/05/25 21:46
Total Bilirubin 0.8 mg/dl (0.2-1.3) 09/13/25 05:02
AST 21 U/L (14-36) 09/13/25 05:02
ALT 18 U/L (0-35) 09/13/25 05:02
Alkaline Phosphatase 108 U/L (38-126) 09/13/25 05:02
Most recent labs reviewed.
Micro Results:
09/06/25 04:18 Blood Culture - Final
Blood/Venous No Growth - Final Report
09/05/25 14:28 Blood Culture - Final
Blood/Venous No Growth - Final Report
09/04/25 02:50 Blood Culture - Final
Blood/Venous Streptococcus pyogenes
Gram Stain - Final
09/04/25 02:50 Blood Culture - Final
Blood/Venous Streptococcus pyogenes
Gram Stain - Final
09/06/25 11:09 Body Fluid Culture - Final
Pleural Fluid No Growth After 72 Hours
Gram Stain - Final
09/06/25 11:09 Acid Fast Bacilli Smear - Preliminary
Pleural Fluid Acid Fast Bacilli Culture - Preliminary
09/05/25 13:59 Streptococcus Screen (VANDANA) - Final
Throat/Pharynx No Beta Hemolytic Streptococci Isolated
Streptococcus Rapid Screen - Final
Rapid Strep Screen (Group A) Negative
09/05/25 13:59 Throat Culture - Final
Throat/Pharynx Usual Respiratory Tawnya
09/04/25 02:51 Urine Culture - Final
Urine NO GROWTH
09/11/25 CXR: There is improved aeration of the right lung with a tiny right-sided pleural effusion. No pneumothorax.
09/08/25 CXR: Small to moderate right pleural effusion with associated atelectasis and/or pneumonia, progressed. Small left pleural effusion with associated atelectasis and/or pneumonia, slightly improved. Suspect mild CHF.
09/06/25 CXR: Interval increase in opacification of the right lower lung, most likely atelectasis. Evidence for small to moderate right pleural effusion including lateral loculation. Small left pleural effusion. Parenchymal opacity within the left
lower lung, mainly medially, with differential considerations of atelectasis and/or pneumonia.
11/05/24 Brain MRI: There are small foci of acute to subacute infarct involving both occipital lobes; suspicious for a focus of acute to subacute infarct involving the choroid plexus, although can also be seen with choroid plexus xanthogranuloma.
Findings would suggest focal area of acute to subacute infarct in the right frontal lobe, superior to the region of encephalomalacia.
09/04/25 CXR: The lungs are clear.
09/04/25 CT a/P: Markedly limited CT of the abdomen and pelvis as a result of numerous factors,
09/04/[address]: At least 3 cm focus of decreased attenuation centered about the right sylvian fissure which could represent an intracranial mass with edema such as metastatic disease. Subacute to chronic infarct cannot be differentiated on this CT
without intravenous contrast. Recommend Brain MRI without and with contrast for more complete evaluation.
09/04/25 L HIP XRAY:No acute fracture or dislocation. The hip joint space is maintained. Gluteus medius calcific tendinosis.
08/17/25 outside MRI wo contrast left hip report: ' There is evidence of a tear of the distal gluteus minimus muscle and tendon at the level of the greater trochanter with evidence of peritrochanteric edema and fluid. Incidental inguinal lymph
nodes are noted bilaterally.
[2025-09-14] MEDS: ROCEPHIN IV (12:13)
[2025-09-14] MEDS: FLUSH (NSS) IV (12:33)
[2025-09-14] MEDS: STERILE WATER FOR INJECTION IV (13:01)
--- NOTE | 2025-09-14 13:08 | PTCARENOTE ---
Tube feedings started per orders at 13:00. Patient asked this RN and when she is 'going on hospice?' informed patient they will discuss with Hospitalist tomorrow. Resident made aware. Plan of care ongoing.
--- NOTE | 2025-09-14 14:00 | PTCARENOTE ---
Patient with thick brown secretions throughout shift. Suctioning PRN per orders. RT provided neb tx prn. Resident made aware. Plan of care ongoing.
[2025-09-14] MEDS: KEFLEX 250 MG/5 ML 500 MG TUBE ×2 (14:29→20:59)
--- NOTE | 2025-09-14 15:32 | PTCARENOTE ---
Hospitalist order 3% ns nebulizer to help with secertions. RT notified.
[2025-09-14] MEDS: D5W 1000 IV (15:43)
--- NOTE | 2025-09-14 15:49 | PTCARENOTE ---
Tube feeding turned off at 15:30. Patient with increased thin secretions brown in color. Hospitalist notified.
[2025-09-14] MEDS: SODIUM CHLORIDE 3% FOR INHALATION 1 VIAL INH ×2 (15:51→20:50)
--- NOTE | 2025-09-14 16:36 | CM ---
PT OT indicated SNF.
[facility] were waiting to see if pt tolerating tube feeding .
Tube feedings started today but were stopped . Pt not tolerating .
MD aware
Discharge planning will depend on tolerance on tube feedings.
[2025-09-14 17:24] LABS: Hematocrit 38.2 % (37.0-47.0); Hemoglobin 12.7 g/dL (12.0-16.0)
[2025-09-14 18:54] LABS: APTT > 200 Sec (23.4-35.0)
--- NOTE | 2025-09-14 20:41 | PTCARENOTE ---
Pt. O2 sat at 86-87% on RA, b/l rhonchi in lung bases. Pt. requiring 5L NC to maintain O2 sat of 92-93%. Patient suctioned per protocol, but not yielding many secretions at this time. NIH found to be a 7 with new B/L lower extremity drift observed
in both legs, which was not present per previous NIH assessments on previous shift. Patient HR also maintaining sinus tach in the 120s. Provider notified and at bedside assessing patient. Bed alarm in place, bed in lowest position, plan of care
ongoing.
--- NOTE | 2025-09-14 20:54 | W.PN.UPDATE ---
Update Note
Progress Note Update
~ 20:30 Asked to evaluate patient for increased O2 needs, now on 5L NC, sat 92. On room air 86-87%. Patient coarse t/o b/l, slight inspiratory wheeze, increased work of breathing, using accessory muscles.
Vital signs: BP 143/67, HR 122, Resp 18, temp 97 axillary.
Stat portable CXR ordered, Findings - Low lung volumes. Bilateral interstitial pulmonary opacities suspicious for interstitial pulmonary edema. Increased right basilar airspace opacity for which considerations include more localized edema,
pneumonia, and/or atelectasis. Probable small right pleural fluid. Stable cardiomediastinal silhouette. Sternotomy wires and a cardiac valve prosthesis.
Ordered Lasix 20 mg IV x 1 now. Asked respiratory to give 3% saline treatment now.
~ 22:00 Pt c/o chest, described as mid chest, unable to describe and unable to rate pain level. EKG preliminary read shows sinus tachycardia, left ventricular hypertrophy w/repolarization abnormality, similar to previous EKG.
Vital signs stable: BP 111/61, HR 122, resp 24, temp 97.8 oral, 94% on 5L NC.
Ordered troponin stat. Result 3.76, trending down from previous.
Asked respiratory to evaluate patient, suction as needed.
Patient very anxious, given Ativan 0.25 mg IV PRN dose.
[2025-09-14] MEDS: LASIX 20 MG IV (20:59)
[2025-09-14 23:15] LABS: Troponin I 0.376 ng/ml
[2025-09-15] MEDS: APRESOLINE IV ×2 (00:37→05:29)
[2025-09-15] MEDS: ROBITUSSIN 200 MG TUBE ×2 (01:00→05:00)
--- NOTE | 2025-09-15 02:17 | PTCARENOTE ---
Patient received one time dose of IV lasix as ordered. Patient checked several times after and found to not be voiding; bladder scan showed 500 mls of urine in patient's bladder and pt. unable to void at this time. Provider notified and order placed
by provider for lynn catheter. Lynn inserted per protocol. Plan of care ongoing.
[2025-09-15] MEDS: TRANSDERM-SCOP 1 PATCH TRANSDERM (03:10)
[2025-09-15 03:37] VITALS: BP 103/44
[2025-09-15 04:11] LABS: APTT 60.1 Sec (23.4-35.0)
[2025-09-15] MEDS: KEFLEX 250 MG/5 ML 500 MG TUBE (05:41)
[2025-09-15] MEDS: SYNTHROID 88 MCG TUBE (05:41)
[2025-09-15 07:00] VITALS: BP 144/56
--- NOTE | 2025-09-15 07:26 | W.PN.HOSP.TC ---
Addendum entered and electronically signed by Randall Castañeda MD 09/15/25 13:28:
Attending�addendum:
I saw and evaluated the patient independently. I reviewed and discussed the resident�s note and agree with findings and plan as documented in the resident�s note.� patient seen and examined at bedside, patient looks tired, increase secretion, cannot
tolerate tube feeding, at bedside.
Decision made for inpatient hospice
Physical�exam:
GENERAL : Patient looks tired, cachectic
HEENT: Nonicteric sclerae, PERRLA, EOMI. Oropharynx clear. Moist mucous membranes. Conjunctivae appear well perfused.
CHEST: Chest wall is nontender.
HEART: Regular rate and rhythm without murmurs.
LUNGS: Clear to auscultation bilaterally.
ABDOMEN: Soft, positive bowel sounds, nontender, no organomegaly.
RECTAL: Deferred.
MUSCLES/EXTREMITIES: No abnormal range of motion, no swelling.SKIN: No rash, no excessive bruising, petechiae, or purpura.
NEUROLOGIC: Awake
�
Assessment/plan:
Septic shock.
Bacteremia.
Acute hypoxic respiratory
Acute metabolic encephalopathy.
New onset A-fib.
Severe protein calorie malnutrition.
Status post PEG tube
CODE STATUS:DNR
Family communication: Discussed with at bedside
Disposition: Inpatient hospice
�
Total time spent on today�s encounter was 60 minutes which included time spent in counseling the patient/family regarding diagnosis and treatment plan as listed above, goals of care, and symptom management. Case was discussed with nursing staff,
specialists, and care coordinators/case management. All labs and imaging personally reviewed by me. Remainder the time spent in detailed review of previous records, lab data, imaging, and other medical provider documentation.
Original Note:
Today's Communication/Plan
-
[facility]
Proceed with comfort care
d/c life prolonging medications
Assessment / Plan
Assessment / Plan
Goals of Care
-inpatient hospice - discussed with the pt and her regarding GOC. They both agreed on wanting to proceed with hospice.
-d/c life prolonging meds
-will monitor and assist
09/04/25 Rapid Response Deteriorating Mental Status 2/2 Developing Severe Sepsis (Leukocytosis, Fever, end organ damage [place])
Acute Metabolic Encephalopathy
Septic shock from GAS with bacteremia
-After study, Sepsis due to Bacteremia with organ dysfunction of hypotension was present on admission
-Per Diem Rn consult, input appreciated
-Transferring from ICU to telemetry
-Septic shock Levophed on hold improving BP. Goal MAP>65
-Blood Cx's drawn in ED, Strep Pyogenes (+)
-ID consult, input appreciated
-Started on Renally dose Cefazolin per discussion with ID- Replace Cefazolin with Ceftriaxone #D10 transition to cephalexin #D2 500mg suspension Q8h till 09/18/2025- d/c
-Pt's + for Strep throat. Repeat blood C's x2- No growth
-Throat Cx Group B strep - negative
-Rapid strep for GAS-negative
-IVF with D5W
-Pleural fluid Cx- neg
-PMR consult, input appreciated - subacute rehab
-productive mucous , suction of throat - dc
-Follow temp- tylenol prn
-Follow vitals
CT head scan 09/11/2025 for altered mental status
-There is evolving known infarction and chronic encephalomalacia within the lateral right frontal lobe.
-The known recent prior bilateral occipital infarcts are not well visualized on this examination.
-There is no evidence of acute intracranial hemorrhage
Chest Xray 09/11/2025 for residual pleural effusion
-There is improved aeration of the right lung with a tiny right-sided pleural effusion. No pneumothorax.
Chest Xray 09/08/25
-Small to moderate right pleural effusion with associated atelectasis and/or pneumonia, progressed
-Small left pleural effusion with associated atelectasis and/or pneumonia, slightly improved
-Suspect mild CHF
New Atrial fibrillation
- Overnight she had HR >150's irregular, BP 135/53 98.2, 22 95% 2l , EKG Afib with RVR, no hx of Afib noted
- Received Metoprolol, Cardizem
- Troponin 1.050 --> 0.526--> High likely from non ischemic myocardial injury
- Afib likely due to ? aspiration ? pleural effusion? hypovolumic?
- CHADSVASC score 7
- Consult cardiology, input appreciated
--Toprol to 50mg BID tube for rate control
--Not PPM candidate at present given coagulopathy as well as bacteremia / sepsis
--Monitor HR
Malnutrition
PEG tube placement
-Likely Severe Protien Calorie Malnutrition vs cachexia
-Consult Dietary RN
-pt weighted 56kg now 35.5, BMI 16.4
-Pt and Silvino want to proceed with PEG tube placement for progressive weight loss.
-Consult GI, input appreciated
-PEG tube placement 09/13 - Hx of gastroparesis, may have difficulty tolerating PEG tube feeds, if cant tolerate may need to have IR convert that to a GJ tube
-Hold Heparin ggt 4 hours prior to the PEG placement - started heparin ggt 1 hour after PEG
-Start Warfarin 2mg QPM- on hold per GI
-use PEG 09/13 for meds and water, may use PEG 09/14 for feedings - d/c
-antibiotic ointment on site and change dressing QD
-Consult Nutrition, follow recs
-Check Mg, K, Phos before and after meals
Endoscopy 09/12/2025
- A Grade A reflux esophagitis with no bleeding.
- Small hiatal hernia.
- Two gastric polyps not biopsied since need to restart Heparin.
- Non-bleeding duodenal ulcer with no stigmata of bleeding.
- A PEG placement was successfully completed.
- No specimens collected.
Oral thrush
-Continue Nystatin Suspension - swish and spit - d/c
Hypertensive urgency
- L187/82, R 194/76 - improved
- IV hydralazine 5mg Q6h, Hold if SBP <130
Hypernatremia
-Na 151--> D5W 60ml/h--> Na 147-->D5W continue until tm 60ml/h-->Na137
Nausea and Vomiting
Coffee Ground Emesis vs Bilious Emesis
-Warfarin was on hold at the admission because of possible GI Bleeding exacerbated by Warfarin
-Suspect previous coffee ground material secondary to bilious emesis related to sepsis and known gastroparesis
-Hx of GIB with recent scopes in April
-09/04 NGT placed to suction w/ relief symptoms- Patient had NG tube which was pulled 09/06/2025 with no significant finding of coffee-ground emesis
-CT abd/pelvis w/o contrast limited study noted, possible gastric outlet obstruction vs gastroparesis
-Hb 8.7, received 1PRBC this admission. transfuse if Hgb<8 - Hb 12.6
-Consult GI, input appreciated
-Protonix BID
-Avoid NSAID
-Improved
Pleural effusion
- On POCUS- right sided moderate pleural effusion
- Suspect for sepsis site with Bc strep. pyogenes- empyema?
- thoracentesis was performed 09/06. a total of 660 mL of serosanguineous fluid was collected
- Acid Fast Bacilli and Fluid Cx - neg prelim
- Per Light's Criteria PF/Serum Protein= 0.58= exudative, PF/Serum LDH=0.517=does not meet criteria
- Meets 1 Lights criteria - exudative, gross look of serosanginous fluid 2/2 ? infection, ? pseudoexudative 2/2 home lasix, pathology neg for malignancy
- Pro BNP >43839 , transudative 2/2 HF?
- Pleural effusion improved- dc furosemide
H/o Breast Cancer with brain lesions, metastasis vs embolic stroke
CT scan of head
At least 3 cm focus of decreased attenuation centered about the right sylvian fissure which could represent an intracranial mass with edema such as metastatic disease.
Subacute to chronic infarct cannot be differentiated on this CT without intravenous contrast.
Recommend Brain MRI without and with contrast for more complete evaluation.
Brain MRI w/wo contrast
There is no MR evidence for intracranial metastatic disease
There are small foci of acute to subacute infarct involving both occipital lobes
Focal region of abnormal restricted diffusion involving the choroid plexus within the atria of the right lateral ventricle.
Given the findings in the occipital lobe, this is suspicious for a focus of acute to subacute infarct involving the choroid plexus, although can also be seen with choroid plexus xanthogranuloma
Focal area of encephalomalacia involving the inferior right frontal and superior right temporal lobe, in the region of the insula. There is a region of abnormal diffusion extending superiorly and anteriorly to the region of encephalomalacia, and
signal abnormality extends appears increased compared to previous MRI in June 2021.
Findings would suggest focal area of acute to subacute infarct in the right frontal lobe, superior to the region of encephalomalacia
Carotid US- Minimal calcified carotid bulb plaque on each side, measurements suggestive of less than 50% stenosis on each side
-last Tx was in October
-follows with Dr Amaral, recently received outpt IV iron infusions for anemia
-Consulted Neurology, input appreciated
-posterior circulation areas of ischemia which are suggestive of embolic stroke in bilateral occipital lobes
-Provide with AC, risk of hemorrhagic conversion of small posterior lesions unlikely. Avoid bolus IV heparin
-DAVE today 09/07 - No evidence of cardioembolic source of stroke, no evidence for endocarditis
Dysarthria
Dysphagia
-likely 2/2 acute/subacute infarcts in bl occipital lobes, choroid plexus, and extension of previous right frontal lobe infarct
-New Speech eval - NPO
-VSE 09/09/2025
- Fluoroscopic evidence of laryngeal penetration and aspiration was demonstrated.
- Vallecular residue noted throughout study with all barium consistencies.
- Brief fluoroscopy of the thoracic esophagus did not demonstrate any residue
-NPO was recommended, Pt and her Silvino stated wanting to continue her diet full liquids - understanding the risk of aspiration. Risks from aspiration and her DNI, DNR status were discussed with them.
Acute on CKD stage III
-likely pre-renal poor oral intake nausea vomiting
-IVF support
-avoid nephrotoxins, prn Toradol discontinued
-monitor renal function
Mechanical Aortic Valve Replacement on Coumadin
HFpEF (recent ECHO EF 55-60%)
ASCVD
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
-AC was held in view of acute drop in Hb and concern for brain emboli with bacteremia
-Continue heparin ggt per civil engineering design draftsperson, monitor APTT - Discontinued IV heparin on 09/07/2025
-Repeat Lasix 20mg IV x 1 on 09/07 then switch to 20mg Lasix PO QD
-Resume Metoprolol 25mg PO BID
-therapeutic INR 2.5-3
-Heparin ggt 09/11, Coumadin 2 mg 09/11 QPM -- Hold Coumadin QPM, hold heparin ggt 4 hours prior to PEG
-Aptt >200 follow hearin ggt protocols, INR 1.32 Resume Coumadin QPM - d/c
-Follow Daily INR, APTT
TTE
1. Compared to a prior transthoracic echocardiogram study from 07/25/2025 no significant changes are seen.
2. Left ventricle is small in size. Mild concentric left ventricular hypertrophy. Preserved left ventricular systolic function. Left ventricular ejection fraction is 55-60% by visual estimate.
3. Well seated mechanical aortic valve replacement. Peak/mean gradients across the aortic valve are 7/4 mmHg respectively. No aortic regurgitation.
4. Moderate tricuspid regurgitation. Estimated pulmonary artery pressure of 39 mmHg assuming a right atrial pressure of 3 mmHg.
5. Thickened calcified mitral valve leaflets with adequate excursion. Dense mitral annular calcification. There is at least mild to moderate mitral regurgitation which may have been underestimated due to mitral annular calcification.
Acute on Chronic Left Hip Pain
-left hip greater trochanteric bursitis and gluteal tendinitis, follows Dr Caban
-Hip X-ray appreciated no acute fracture or dislocation
-Orthopedic eval appreciated steroid injection given 09/04/25- ice and tylenol prn
-PT/OT eval - acute rehab
-PMR consult, input appreciated - subacute rehab
Anxiety
-0.25mg Ativan Q6H
Hypothyroidism
-Levothyroxine 88mcg PO QD - on hold due to NPO for meds status #D4 - resume levothyroxine by tube - d/c
-For IV levothyroxine policy is to wait 3 days NPO before starting IV dose. IV dose is 75% of PO so reduce 88mcg PO to 66mcg IV QD on 09/13
-Last PO levothyroxine was on 09/09
Electrolyte abnormality
-hypocalcemia- repleted
Constipation
-Senokot-S , Miralax prn
-resolved
Pulmonary HTN
- RHC 10/2024, mPA 41, PCWP 22 with CI 2.5, PVR 5.8.
- Group II with h/o AVR, elevated PCWP. Also elevated PVR suggestive of concomitant pre-capillary Pulmonary HTN
DVT ppx SCD
DNR as per POA Uziel
Dispo: SNF
Anticipated Discharge: Within 24 hours
Subjective/Interval History
-
Date of Service: September 15, 2025
She is awake lying in the bed. Overnight she had a lot of mucous secretions, had urinary retention. Church catheter was inserted per protocol. Her tube feeding was on hold since she is not tolerating it well. She has been requesting her family to
proceed with hospice. She and her decided on proceeding with hospice care today.
Objective Data
-
Labs:
Laboratory Results
09/15/25 09/15/25 09/15/25
03:06 03:54 06:00
WBC Pending
Hgb Pending
Hct Pending
Plt Count Pending
PT Pending
INR Pending
APTT Cancelled 60.1 H
Sodium Pending
Potassium Pending
Chloride Pending
Carbon Dioxide Pending
BUN Pending
Creatinine Pending
Glucose Pending
Calcium Pending
09/15/25
10:30
WBC
Hgb
Hct
Plt Count
PT
INR
APTT Pending
Sodium
Potassium
Chloride
Carbon Dioxide
BUN
Creatinine
Glucose
Calcium
Vital Signs:
Vital Signs
Temp Pulse Resp BP Pulse Ox
97.5 F 96 26 103/44 93
09/15/25 03:37 09/15/25 03:37 09/15/25 03:37 09/15/25 03:37 09/15/25 03:37
I&O
09/14/25 09/15/25 09/16/25
06:59 06:59 06:59
Intake Total 1335 / 1335 720 / 720
Output Total 400 / 400 600 / 600
Balance 935 / 935 120 / 120
Review of Systems
-
Unable to obtain full review of systems at this time due to: Acuity
Physical Exam
-
General: Well Developed, Appears in Distress, Appears Chronically Ill and Cachectic
HEENT: Normocephalic, Atraumatic and Thrush (hemorrhagic spots)
Respiratory: Clear to Auscultation and Non Labored Respirations
Cardiac: Regular Rhythm and S1/S2 (mechanic driver valve)
Breast: Deferred by me
GI: Soft, Nontender, Nondistended, Normal Bowel Sounds and Peg Tube
Rectal: Deferred by Provider
Musculoskeletal: No Clubbing, No Cyanosis and No Edema
Skin: Warm and Dry
Neuro: Sedated
Psych: Calm
--- NOTE | 2025-09-15 08:40 | W.PN.ID1 ---
Date of Service
Date of Service: September 15, 2025
Today's Communication
Transition to hospice.
ID will sign off.
Assessment / Plan
# Group A streptococcus bacteremia, suspect lung source
# Multiple acute/subacute CVA; DAVE no source of embolic CVA
#Aspiration PNA
# Leukocytosis - improving
#s/p Septic shock
# Fever resolved
# Left hip pain/trochanteric bursitis/gluteus tendinitis s/p left hip injection x 2
# Gastroparesis
# Severe protein-calorie malnutrition
# Hx Splenectomy
# Stage 3 breast ca (declined further tx)
# Mechanical AVR - DAVE neg vege
- Repeat blood cx's x 2 negative
- DAVE: no vegetation
- Right pleural effusion s/p thora 660cc serosanguineous fluid; exudative, cx negative
- Aspiration precaution
- 09/13 s/p PEG placement
- Unable to tolerate PEG with ongoing aspiration, hypoxia
- Patient decided on hospice.
-DC abx.
- Emotional support provided.
ID sign off.
Chief Complaint
-: Bacteremia
Subjective / Review of Systems
Events noted overnight. at bedside. Transitioning to hospice.
Vital Signs / Physical Exam
Vital Signs
Vital Signs
Temp Pulse Resp BP Pulse Ox
97.5 F 96 26 103/44 93
09/15/25 03:37 09/15/25 03:37 09/15/25 03:37 09/15/25 03:37 09/15/25 03:37
Physical Exam
Constitutional: Acutely Ill and Cachetic
Cardiovascular: S1/S2 (Tachy)
Pulmonary: Rales and Other (On O2)
Gastrointestinal: Soft, Non Tender and Non Distended
Objective Data
Lab Data
PT 16.9 Sec (11.4-14.6) H 09/14/25 08:37
INR 1.32 09/14/25 08:37
APTT 60.1 Sec (23.4-35.0) H 09/15/25 03:54
Estimated Creat Clear 38 ml/min 09/14/25 10:06
Lactic Acid 1.9 mmol/L (0.7-2.0) 09/05/25 21:46
Total Bilirubin 0.8 mg/dl (0.2-1.3) 09/13/25 05:02
AST 21 U/L (14-36) 09/13/25 05:02
ALT 18 U/L (0-35) 09/13/25 05:02
Alkaline Phosphatase 108 U/L (38-126) 09/13/25 05:02
Most recent labs reviewed.
Micro Results:
09/06/25 04:18 Blood Culture - Final
Blood/Venous No Growth - Final Report
09/05/25 14:28 Blood Culture - Final
Blood/Venous No Growth - Final Report
09/04/25 02:50 Blood Culture - Final
Blood/Venous Streptococcus pyogenes
Gram Stain - Final
09/04/25 02:50 Blood Culture - Final
Blood/Venous Streptococcus pyogenes
Gram Stain - Final
09/06/25 11:09 Body Fluid Culture - Final
Pleural Fluid No Growth After 72 Hours
Gram Stain - Final
09/06/25 11:09 Acid Fast Bacilli Smear - Preliminary
Pleural Fluid Acid Fast Bacilli Culture - Preliminary
09/05/25 13:59 Streptococcus Screen (VANDANA) - Final
Throat/Pharynx No Beta Hemolytic Streptococci Isolated
Streptococcus Rapid Screen - Final
Rapid Strep Screen (Group A) Negative
09/05/25 13:59 Throat Culture - Final
Throat/Pharynx Usual Respiratory Tawnya
09/04/25 02:51 Urine Culture - Final
Urine NO GROWTH
09/11/25 CXR: There is improved aeration of the right lung with a tiny right-sided pleural effusion. No pneumothorax.
09/08/25 CXR: Small to moderate right pleural effusion with associated atelectasis and/or pneumonia, progressed. Small left pleural effusion with associated atelectasis and/or pneumonia, slightly improved. Suspect mild CHF.
09/06/25 CXR: Interval increase in opacification of the right lower lung, most likely atelectasis. Evidence for small to moderate right pleural effusion including lateral loculation. Small left pleural effusion. Parenchymal opacity within the left
lower lung, mainly medially, with differential considerations of atelectasis and/or pneumonia.
11/05/24 Brain MRI: There are small foci of acute to subacute infarct involving both occipital lobes; suspicious for a focus of acute to subacute infarct involving the choroid plexus, although can also be seen with choroid plexus xanthogranuloma.
Findings would suggest focal area of acute to subacute infarct in the right frontal lobe, superior to the region of encephalomalacia.
09/04/25 CXR: The lungs are clear.
09/04/25 CT a/P: Markedly limited CT of the abdomen and pelvis as a result of numerous factors,
09/04/[address]: At least 3 cm focus of decreased attenuation centered about the right sylvian fissure which could represent an intracranial mass with edema such as metastatic disease. Subacute to chronic infarct cannot be differentiated on this CT
without intravenous contrast. Recommend Brain MRI without and with contrast for more complete evaluation.
09/04/25 L HIP XRAY:No acute fracture or dislocation. The hip joint space is maintained. Gluteus medius calcific tendinosis.
08/17/25 outside MRI wo contrast left hip report: ' There is evidence of a tear of the distal gluteus minimus muscle and tendon at the level of the greater trochanter with evidence of peritrochanteric edema and fluid. Incidental inguinal lymph
nodes are noted bilaterally.
Care Review
Plan reviewed with: Physician (Dr. Castañeda)
[2025-09-15] MEDS: DUONEB 3 ML INH (08:49)
--- NOTE | 2025-09-15 08:52 | W.PN.CARDCBS ---
Today's Communication / Plan
-
Continues to do poorly and decompensate
Discussed with at bedside and plan is for hospice.
Would give dose of Dilaudid 0.5 now and then transition to hospice.
Would stop IV heparin and Coumadin and further blood draws.
Impression / Plan
-
PCP: Dr. Haynes
Cardiology: Dr. Aramis Resendez
Oncology: Dr. Amaral
Impression:
Admitted 09/04/2025 with left hip pain
TME
Dysphagia, dysarthria likely secondary to acute/subacute infarcts in bilateral occipital lobes, choroid plexus, and extension of previous right frontal lobe infarct
s/p PEG tube 09/13/25
Septic shock requiring pressors
Group A Streptococcus bacteremia
Suspected pneumonia
Right pleural effusion
s/p right thoracentesis for 660 mL of blood tinged fluid
Left hip pain/trochanteric bursitis/gluteus tendinitis s/p left hip injection x 2 as outpatient
h/o recurrent GIB (05/02/25 until 05/05/25, readmitted 05/06/25)
Chronic warfarin OAC managed by [facility] cardiology
h/o CVA
h/o CVA 2005
h/o right MCA stroke with M2 occlusion in setting of subtherapeutic INR while off Coumadin 07/15/21
patient bridged with Lovenox prior to colonoscopy 07/10/21, but no Lovenox bridge post-colonoscopy
Mechanical AVR pediatric size 2006
Mitral regurgitation with mitral stenosis
Tricuspid regurgitation with pulmonary hypertension
h/o Hodgkin's lymphoma treated with radiation to left neck and pelvis 1973
h/o breast CA
2018 treated with B/L mastectomy, patient refused chemotherapy and radiation, but eventually agreeable to Tamoxifen
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
Recurrence of breast cancer 2021 - did not tolerate Ibrance or Ribociclib
Labile HTN
Hypothyroidism
Chronic HFpEF
CAD with 60 to 70% ostial to proximal LM stenosis, 100% [employer] proximal RCA with [id number] collaterals by cardiac cath 10/28/2024
LHC 10/28/2024: Eccentric 60-70% ostial to proximal Left main, difficult to advance IVUS catheter. iFR positive at 0.76. Elevated filling pressures, normal cardiac output/index, occluded right coronary artery with brisk collater, Nonobstructive plaque
of LAD and circumflex, pulmonary artery pressure 62/26, pulmonary capillary wedge pressure is 22, right atrial pressure is 11, cardiac index is 2.5
Echo 08/26/2022: Hyperdynamic LV.� EF 70 to 75%.� Mild to moderate MS peak/mean gradient 20/7 mmHg.� Moderate to severe MR.� Well-seated mechanical AVR with peak/mean gradient 11/6 mmHg without regurgitation.� Moderate to severe TR.� Moderate
pulmonary hypertension with PAP 50 to 55 mmHg.
Echo 02/10/2023: EF 60 to 65%.� Moderate mitral stenosis mean gradient 11 with severe MR.� Well-seated mechanical AVR with peak/mean gradient 15/8 mmHg, mild to moderate TR, mild pulmonary hypertension with PAP 45 to 48 mmHg.
Echo 11/19/2023: EF 70-75%, moderate MS with peak/mean gradients 15/8 mmHg, moderate MR, mechanical prosthetic AVR with peak/mean gradients 16/9 mmHg, trace AR, moderate TR, estimated PAP 30-35 mmHg
Echo 10/25/24: EF 55-60%, moderate mitral stenosis with mean gradient of 8 mmHg, mild to moderate MR, mechanical AVR with mean gradient of 10, no AI, mild to moderate TR with PA pressure 40-45
Echo 09/05/2025: EF 55 to 60%. Mild LVH. Mildly dilated LA and RA. Mild to moderate mitral regurgitation. Well-seated mechanical aortic valve peak/mean gradient 7/4 mmHg. No AI. Moderate TR with PAP 39 mmHg.
Carotid ultrasound 09/05/25: Minimal calcified carotid bulb plaque on each side, measurements suggestive of less than 50% stenosis on each side.
Plan:
-Admitted 09/04/2025 with left hip pain then developed acute altered mental status and slurred speech and was found to have septic shock requiring pressors which have been weaned.
-Found to have new acute/subacute CVAs involving posterior circulation and in bilateral occipital lobe suggestive of embolic source on MRI 09/05/25. No evidence of KALIA thrombus on DAVE 09/07/25
-Continues on IV abx for Strep A bacteremia per ID recommendations. DAVE 09/07/25 did not show valvular vegetation to suggest infective endocarditis
-Patient had successful PEG tube placed on 09/13/2025.
-Patient decompensated overnight and now with marked hypoxemia and chest pains.
-I had a discussion with her and they now desire hospice.
-This is appropriate. Would stop IV heparin and Coumadin and start pain control with Dilaudid.
Progress Note - Speaker Mounter
Subjective
Date of Service: September 15, 2025
She is short of breath with hypoxemia. at bedside and desires hospice.
Objective
Labs:
Labs
Hgb 12.7 g/dL (12.0-16.0) 09/14/25 17:13
Hct 38.2 % (37.0-47.0) 09/14/25 17:13
Plt Count 254 10^3/uL (130-400) 09/14/25 08:37
PT 16.9 Sec (11.4-14.6) H 09/14/25 08:37
INR 1.32 09/14/25 08:37
APTT 60.1 Sec (23.4-35.0) H 09/15/25 03:54
Sodium 129 mmol/L (135-145) L D 09/14/25 10:06
Potassium 3.9 mmol/L (3.5-5.1) 09/14/25 10:06
BUN 31 mg/dl (7-17) H 09/14/25 10:06
Creatinine 0.8 mg/dL (0.6-1.0) 09/14/25 10:06
Glucose 113 mg/dl (70-99) H 09/14/25 10:06
Troponins
09/14/25
22:19
Troponin I 0.376 H*
Vital Signs and I&O:
Vital Signs
Temp Pulse Resp BP Pulse Ox
99.6 F 107 20 144/56 91
09/15/25 07:00 09/15/25 07:00 09/15/25 07:00 09/15/25 07:00 09/15/25 07:00
Vital Signs
Temp Pulse Resp BP Pulse Ox
99.6 F 107 20 144/56 91
09/15/25 07:00 09/15/25 07:00 09/15/25 07:00 09/15/25 07:00 09/15/25 07:00
Intake & Output
09/13/25 09/14/25 09/15/25 09/16/25
06:59 06:59 06:59 06:59
Intake Total 200 / 200 1335 / 1335 720 / 720
Output Total 200 / 200 400 / 400 600 / 600
Balance 0 / 0 935 / 935 120 / 120
Physical Exam
Physical Exam
GEN: Mild resp distress, awake,
HEENT: supple, anicteric, mmm
LUNGS: bilat rhonchi
CV: Reg, S1/S2, 1/6 syst LSB, + click
ABD: soft, BS+, NT/ND
EXT: No edema
NEURO: Gross non-focal
SKIN: No rash
--- NOTE | 2025-09-15 08:57 | CM ---
Addendum entered by Claude Gordon 09/15/25 11:55:
Patient will admit to inpatient hospice today
Original Note:
CM consulted for hospice. Per chart, patient and spouse would like to pursue hospice services
hospice referral placed, TT to hospice nurse liaison to review referral
Plan: Hospice follow up
[2025-09-15] MEDS: MYCOSTATIN ORAL SUSPENSION PO (09:13)
[2025-09-15] MEDS: LOPRESSOR TUBE (09:13)
[2025-09-15] MEDS: ROBITUSSIN TUBE (09:14)
[2025-09-15] MEDS: NSS (PRESERVATIVE FREE) IV (09:14)
[2025-09-15] MEDS: PROTONIX IV IV (09:14)
[2025-09-15] MEDS: DILAUDID 0.5 MG IV (09:35)
--- NOTE | 2025-09-15 11:17 | HOSPNOTE ---
Hospice referral received. Spoke to spouse. We will admit inpatient hospice today.
[2025-09-15] MEDS: FLUSH (NSS) IV (11:45)
--- NOTE | 2025-09-15 11:54 | W.DCSUMMARY ---
Addendum entered and electronically signed by Randall Castañeda MD 09/15/25 13:29:
Attending�addendum:
I saw and evaluated the patient independently. I reviewed and discussed the resident�s note and agree with findings and plan as documented in the resident�s note.� patient seen and examined at bedside, patient looks tired, increase secretion, cannot
tolerate tube feeding, at bedside.
Decision made for inpatient hospice
Physical�exam:
GENERAL : Patient looks tired, cachectic
HEENT: Nonicteric sclerae, PERRLA, EOMI. Oropharynx clear. Moist mucous membranes. Conjunctivae appear well perfused.
CHEST: Chest wall is nontender.
HEART: Regular rate and rhythm without murmurs.
LUNGS: Clear to auscultation bilaterally.
ABDOMEN: Soft, positive bowel sounds, nontender, no organomegaly.
RECTAL: Deferred.
MUSCLES/EXTREMITIES: No abnormal range of motion, no swelling.SKIN: No rash, no excessive bruising, petechiae, or purpura.
NEUROLOGIC: Awake
�
Assessment/plan:
Septic shock.
Bacteremia.
Acute hypoxic respiratory
Acute metabolic encephalopathy.
New onset A-fib.
Severe protein calorie malnutrition.
Status post PEG tube
CODE STATUS:DNR
Family communication: Discussed with at bedside
Disposition: Inpatient hospice
�
Total time spent on today�s encounter was 40 minutes which included time spent in counseling the patient/family regarding diagnosis and treatment plan as listed above, goals of care, and symptom management. Case was discussed with nursing staff,
specialists, and care coordinators/case management. All labs and imaging personally reviewed by me. Remainder the time spent in detailed review of previous records, lab data, imaging, and other medical provider documentation.
Original Note:
Documented by User: Janet Romo MD, Resident 09/15/25 12:47
Discharge Summary
Discharge Data
Date of Admission: 09/04/25
Date of Discharge: 09/15/25
-
Pending Results: No
Hospital Course
Discharging Physician : Dr. Janet Romo, Randall Ryan
Disposition : Inpatient hospice
Primary care physician : Melanie Haynes MD
Principal Discharge diagnosis :
Septic shock from GAS with bacteremia
New Atrial fibrillation
Malnutrition
Oralk thrush
Coffee Ground Emesis vs Bilious Emesis
Pleural effusion
Dysarthria likely secondary to stroke
Chronic Discharge diagnosis :
H/o Breast Cancer with brain lesions, metastasis vs embolic stroke
Dysphagia
Acute on CKD stage III
Mechanical Aortic Valve Replacement on Coumadin
left hip greater trochanteric bursitis and gluteal tendinitis
Anxiety
Hypothyroidism
Pulmonary HTN
Hospital Course : Mrs. Osborn is a 69y/o female with PMH significant for aortic stenosis s/p mechanical valve replacement on Coumadin, Hodgkin's lymphoma s/p XRT, breast cancer, [place] on CKD stage III, hypertension and hypothyroidism presented to ED
with left hip pain on 09/04/2025.
# Hospital course complicated with blood cultures positive for Strep pyogenes (drawn in ED). Initial White count elevation noted attributed to recent steroid injection. Then she had rapid response deteriorating mental status secondary to developing
severe sepsis.
#She had coffee-ground emesis likely secondary to sepsis and known gastroparesis. Her Coumadin was on hold and she was treated with antibiotics.
#On chest x-ray she had pleural effusion. Thoracentesis showed serosanguineous fluid, negative for malignancy. Likely secondary to inflammation.
#She developed new atrial fibrillation. She was on IV Cardizem and metoprolol. She was not a PPM candidate because of her coagulopathy and bacteremia.
#For Malnutritiion likely secondary to severe protein calorie malnutrition she had PEG tube placed on 09/13. She did not tolerate tube feeding due to history of gastroparesis.
#For ongoing Dysphagia after VSE n.p.o. was recommended due to high aspiration risk. She accepted the risk and proceeded with full liquid diet.
#On MRI she had posterior circulation of areas of ischemia which are suggestive of embolic stroke and bilateral occipital lobe. DAVE was negative for cardioembolic source of stroke.
#Mechanical Aortic Valve Replacement on Coumadin-warfarin was held in view of anemia and concern for brain emboli with bacteremia. It was resumed and she had >8 INR level. She received vitamin K.
# left hip greater trochanteric bursitis and gluteal tendinitis she was given steroid injection on 09/04/2025.
Mrs. Osborn and her Uziel decided on proceeding with Hospice on 09/15/2025.
Important imaging findings :
CT head scan 09/11/2025 for altered mental status
-There is evolving known infarction and chronic encephalomalacia within the lateral right frontal lobe.
-The known recent prior bilateral occipital infarcts are not well visualized on this examination.
-There is no evidence of acute intracranial hemorrhage
Chest Xray 09/11/2025 for residual pleural effusion
-There is improved aeration of the right lung with a tiny right-sided pleural effusion. No pneumothorax.
Chest Xray 09/08/25
-Small to moderate right pleural effusion with associated atelectasis and/or pneumonia, progressed
-Small left pleural effusion with associated atelectasis and/or pneumonia, slightly improved
-Suspect mild CHF
CT scan of head 09/04/2025
At least 3 cm focus of decreased attenuation centered about the right sylvian fissure which could represent an intracranial mass with edema such as metastatic disease.
Subacute to chronic infarct cannot be differentiated on this CT without intravenous contrast.
Recommend Brain MRI without and with contrast for more complete evaluation.
Brain MRI w/wo contrast 09/05/2025
There is no MR evidence for intracranial metastatic disease
There are small foci of acute to subacute infarct involving both occipital lobes
Focal region of abnormal restricted diffusion involving the choroid plexus within the atria of the right lateral ventricle.
Given the findings in the occipital lobe, this is suspicious for a focus of acute to subacute infarct involving the choroid plexus, although can also be seen with choroid plexus xanthogranuloma
Focal area of encephalomalacia involving the inferior right frontal and superior right temporal lobe, in the region of the insula. There is a region of abnormal diffusion extending superiorly and anteriorly to the region of encephalomalacia, and
signal abnormality extends appears increased compared to previous MRI in June 2021.
Findings would suggest focal area of acute to subacute infarct in the right frontal lobe, superior to the region of encephalomalacia
Carotid US- Minimal calcified carotid bulb plaque on each side, measurements suggestive of less than 50% stenosis on each side
TTE 09/07/2025
1. Compared to a prior transthoracic echocardiogram study from 07/25/2025 no significant changes are seen.
2. Left ventricle is small in size. Mild concentric left ventricular hypertrophy. Preserved left ventricular systolic function. Left ventricular ejection fraction is 55-60% by visual estimate.
3. Well seated mechanical aortic valve replacement. Peak/mean gradients across the aortic valve are 7/4 mmHg respectively. No aortic regurgitation.
4. Moderate tricuspid regurgitation. Estimated pulmonary artery pressure of 39 mmHg assuming a right atrial pressure of 3 mmHg.
5. Thickened calcified mitral valve leaflets with adequate excursion. Dense mitral annular calcification. There is at least mild to moderate mitral regurgitation which may have been underestimated due to mitral annular calcification.
Procedure findings :
VSE 09/09/2025
- Fluoroscopic evidence of laryngeal penetration and aspiration was demonstrated.
- Vallecular residue noted throughout study with all barium consistencies.
- Brief fluoroscopy of the thoracic esophagus did not demonstrate any residue
Endoscopy 09/12/2025
- A Grade A reflux esophagitis with no bleeding.
- Small hiatal hernia.
- Two gastric polyps not biopsied since need to restart Heparin.
- Non-bleeding duodenal ulcer with no stigmata of bleeding.
- A PEG placement was successfully completed.
- No specimens collected.
Discharge Plan
-
Patient Disposition: Hospice - Inpatient [facility]
Discharge Orders:
Discharge Patient (As Directed); Ordered 09/15/25
Ordered By: Randall Castañeda
Discharge Date and Time
Discharge Date/Time: 09/15/25 12:16
Print Language: [place]

Documented by User: Randall Castañeda MD 09/15/25 13:29
Discharge Summary
Discharge Data
Date of Admission: 09/04/25
Date of Discharge: 09/15/25
Discharge Plan
-
Patient Disposition: Hospice - Inpatient [facility]
Discharge Orders:
Discharge Patient (As Directed); Ordered 09/15/25
Ordered By: Randall Castañeda
Discharge Date and Time
Discharge Date/Time: 09/15/25 12:16
Print Language: [place]
== END 2025-09-15 12:16 | disposition hospice, inpatient (51) | DRG 871 ==
LOC: 4 EAST ACU 05:43
PROVIDERS: Family Medicine; Internal Medicine; Internal Medicine Gastroenterology; Nurse Practitioner Adult Health; Nurse Practitioner Family; Nurse Practitioner Gerontology; Nurse Practitioner Primary Care; Student in an Organized Health Care Education/Training Program; ADMITTING PHYSICIAN Hospitalist; ATTENDING PHYSICIAN General Practice; CONSULT PHYSICIAN Nuclear Medicine Nuclear Cardiology; CONSULT PHYSICIAN Physical Medicine & Rehabilitation; CONSULT PHYSICIAN Specialist; CONSULT PHYSICIAN Student in an Organized Health Care Education/Training Program; EMERGENCY PHYSICIAN Emergency Medicine; FAMILY PHYSICIAN Emergency Medicine; OTHER PHYSICIAN Internal Medicine; OTHER PHYSICIAN Internal Medicine Infectious Disease; OTHER PHYSICIAN Psychiatry & Neurology Neurology
PROC: 3E0U3BZ Introduction of Anesthetic Agent into Joints, Percutaneous Approach (ICD-10-PCS; 2025-09-04)
PROC: 3E0U33Z Introduction of Anti-inflammatory into Joints, Percutaneous Approach (ICD-10-PCS; 2025-09-04)
PROC: 30233N1 Transfusion of Nonautologous Red Blood Cells into Peripheral Vein, Percutaneous Approach (ICD-10-PCS; 2025-09-05)
PROC: 0W993ZZ Drainage of Right Pleural Cavity, Percutaneous Approach (ICD-10-PCS; 2025-09-06)
PROC: B24BZZ4 Ultrasonography of Heart with Aorta, Transesophageal (ICD-10-PCS; 2025-09-07)
PROC: 0DH63UZ Insertion of Feeding Device into Stomach, Percutaneous Approach (ICD-10-PCS; 2025-09-13)
DX: A40.0 Sepsis due to streptococcus, group A (principal); E43 Unspecified severe protein-calorie malnutrition; G92.8 Other toxic encephalopathy; R65.21 Severe sepsis with septic shock; I63.89 Other cerebral infarction; J96.01 Acute respiratory failure with hypoxia; J69.0 Pneumonitis due to inhalation of food and vomit; Z68.1 Body mass index [BMI] 19.9 or less, adult; C81.90 Hodgkin lymphoma, unspecified, unspecified site; I13.0 Hypertensive heart and chronic kidney disease with heart failure and stage 1 through stage 4 chronic kidney disease, or unspecified chronic kidney disease; I50.32 Chronic diastolic (congestive) heart failure; D62 Acute posthemorrhagic anemia; E87.20 Acidosis, unspecified; N17.9 Acute kidney failure, unspecified; J91.8 Pleural effusion in other conditions classified elsewhere; R64 Cachexia; B37.0 Candidal stomatitis; K92.0 Hematemesis; I5A Non-ischemic myocardial injury (non-traumatic); E87.0 Hyperosmolality and hypernatremia; D68.32 Hemorrhagic disorder due to extrinsic circulating anticoagulants; I48.91 Unspecified atrial fibrillation; M76.01 Gluteal tendinitis, right hip; M70.62 Trochanteric bursitis, left hip; R13.10 Dysphagia, unspecified; K31.84 Gastroparesis; D69.6 Thrombocytopenia, unspecified; Z66 Do not resuscitate; N18.30 Chronic kidney disease, stage 3 unspecified; R47.1 Dysarthria and anarthria; R62.7 Adult failure to thrive; K21.00 Gastro-esophageal reflux disease with esophagitis, without bleeding; K31.7 Polyp of stomach and duodenum; K26.9 Duodenal ulcer, unspecified as acute or chronic, without hemorrhage or perforation; I16.0 Hypertensive urgency; K59.00 Constipation, unspecified; T45.515A Adverse effect of anticoagulants, initial encounter; I25.10 Atherosclerotic heart disease of native coronary artery without angina pectoris; E89.0 Postprocedural hypothyroidism; I27.20 Pulmonary hypertension, unspecified; I34.0 Nonrheumatic mitral (valve) insufficiency; K44.9 Diaphragmatic hernia without obstruction or gangrene; E78.5 Hyperlipidemia, unspecified; F41.9 Anxiety disorder, unspecified; I34.2 Nonrheumatic mitral (valve) stenosis; Z86.73 Personal history of transient ischemic attack (TIA), and cerebral infarction without residual deficits; I25.2 Old myocardial infarction; Z95.2 Presence of prosthetic heart valve; Z87.891 Personal history of nicotine dependence; Z79.01 Long term (current) use of anticoagulants; Z92.3 Personal history of irradiation; Z85.3 Personal history of malignant neoplasm of breast
CPT/HCPCS: 70450; 70553; 71045; 73502; 74018; 74176; 74230; 80048; 80053; 80061; 80076; 81003; 81015; 82248; 82330; 82805; 82945; 82962; 83605; 83615; 83735; 83880; 84100; 84157; 84484; 85014; 85018; 85025; 85027; 85610; 85730; 86850; 86900; 86901; 86920; 87015; 87040; 87070; 87086; 87116; 87154; 87205; 87880; 88112; 88305; 88341; 88342; 89051; 92507; 92523; 92526; 92610; 92611; 93005; 93308; 93312; 93320; 93321; 93325; 93880; 94640; 96361; 96374; 96375; 97116; 97163; 97167; 97530; 97535; 99285; A9575; P9016

== ENCOUNTER 2025-09-15 12:19 | Inpatient (IN) | payer OTHER, SELFPAY ==
[2025-09-15 11:00] VITALS: BP 100/45
[2025-09-15] MEDS: ATIVAN 1 MG IV (12:41)
[2025-09-15] MEDS: NSS (PRESERVATIVE FREE) 0.5 ML IV (12:42)
--- NOTE | 2025-09-15 12:55 | HPS.HSE ---
Addendum entered and electronically signed by Randall Castañeda MD 09/15/25 13:30:
Attending�addendum:
I saw and evaluated the patient independently. I reviewed and discussed the resident�s note and agree with findings and plan as documented in the resident�s note.� patient seen and examined at bedside, patient looks tired, increase secretion, cannot
tolerate tube feeding, at bedside.
Decision made for inpatient hospice
Physical�exam:
GENERAL : Patient looks tired, cachectic
HEENT: Nonicteric sclerae, PERRLA, EOMI. Oropharynx clear. Moist mucous membranes. Conjunctivae appear well perfused.
CHEST: Chest wall is nontender.
HEART: Regular rate and rhythm without murmurs.
LUNGS: Clear to auscultation bilaterally.
ABDOMEN: Soft, positive bowel sounds, nontender, no organomegaly.
RECTAL: Deferred.
MUSCLES/EXTREMITIES: No abnormal range of motion, no swelling.SKIN: No rash, no excessive bruising, petechiae, or purpura.
NEUROLOGIC: Awake
�
Assessment/plan:
Septic shock.
Bacteremia.
Acute hypoxic respiratory
Acute metabolic encephalopathy.
New onset A-fib.
Severe protein calorie malnutrition.
Status post PEG tube
Admit to inpatient hospice.
Start comfort measures only
CODE STATUS:DNR
Family communication: Discussed with at bedside
Disposition: Inpatient hospice
�
Total time spent on today�s encounter was 60 minutes which included time spent in counseling the patient/family regarding diagnosis and treatment plan as listed above, goals of care, and symptom management. Case was discussed with nursing staff,
specialists, and care coordinators/case management. All labs and imaging personally reviewed by me. Remainder the time spent in detailed review of previous records, lab data, imaging, and other medical provider documentation.
Original Note:
Family Physician
-
Family Physician: Melanie Haynes MD
Chief Complaint
-
left hip pain
History of Present Illness
Mrs. Osborn is a 69y/o female with PMH significant for aortic stenosis s/p mechanical valve replacement on Coumadin, Hodgkin's lymphoma s/p XRT, breast cancer, [place] on CKD stage III, hypertension and hypothyroidism presented to ED with left hip pain
on 09/04/2025. Hospital course was complicated with blood cultures positive for Strep pyogenes (drawn in ED). Initial White count elevation noted attributed to recent steroid injection. Then she had rapid response deteriorating mental status
secondary to developing severe sepsis. She had coffee-ground emesis likely secondary to sepsis and known gastroparesis. Her Coumadin was on hold and she was treated with antibiotics. On chest x-ray she had pleural effusion. Thoracentesis showed
serosanguineous fluid, negative for malignancy. Likely secondary to inflammation.
She developed new atrial fibrillation. She was on IV Cardizem and metoprolol. She was not a PPM candidate because of her coagulopathy and bacteremia.
On MRI she had posterior circulation of areas of ischemia which are suggestive of embolic stroke and bilateral occipital lobe. DAVE was negative for cardioembolic source of stroke.
Mechanical Aortic Valve Replacement on Coumadin-warfarin was held in view of anemia and concern for brain emboli with bacteremia. It was resumed and she had >8 INR level. She received vitamin K.
For left hip greater trochanteric bursitis and gluteal tendinitis she was given steroid injection on 09/04/2025.
For ongoing Dysphagia after VSE n.p.o. was recommended due to high aspiration risk. She accepted the risk and proceeded with full liquid diet.
For Malnutrition likely secondary to severe protein calorie malnutrition she had PEG tube placed on 09/13. She did not tolerate tube feeding due to history of gastroparesis.
Mrs. Osborn and her Uziel decided on proceeding with Hospice/comfort care on 09/15/2025.
Medical History
Past Medical History
Past Medical History: Reports Arrhythmia, Cancer, CHF, CVA, HTN, Hypothyroidism and Valvular Disease
Past Surgical History: Reports and Gynocological
Additional Past Surgical History:
Mechanical AVR (pediatric valve) - 2006
Splenectomy
Mastectomy
Thyroidectomy
Social History
Unable to obtain full social history at this time due to: Acuity
Tobacco: Non-smoker
Alcohol: None
Drug: None
Personal:
Living: With Family
Family History
Family History: Not pertinent
Allergies / Home Medications
Allergies reflects when Allergies were last updated in [employer].
Home Medications with original date entered in [employer]
Allergy/Medication List:
Allergies
Allergy/AdvReac Type Severity Reaction Status Date / Time
palbociclib (From [place]) Allergy Tongue Verified 09/04/25 00:10
Swelling
Penicillins Allergy throat Verified 09/04/25 00:10
swelling-
tolertates
amoxicillin
tramadol Allergy throat Verified 09/04/25 00:10
swelling
Home Medications
levothyroxine 88 mcg tablet 88 mcg PO DAILY AT 0700 Thyroid 07/16/21
metoprolol succinate 50 mg tablet,extended release 24 hr 50 mg PO BID Blood Pressure 10/24/24
furosemide 20 mg tablet (Lasix) 20 mg PO SUTUTHSA@0800 Fluid Retention/Swelling 05/06/25
furosemide 40 mg tablet 40 mg PO MOWEFR@0800 Fluid Retention/Swelling 05/06/25
lorazepam 0.5 mg tablet 0.5 mg PO BIDPRN PRN anxiety 05/06/25
dextran 70-hypromellose eye drops in a dropperette (Artificial Tears (PF) drops in a dropperette) 1 drp BOTH EYES QIDPRN PRN dry eye 05/27/25
pantoprazole 40 mg tablet,delayed release (Protonix) 40 mg PO DAILY Gastrointestinal Issue 05/27/25
warfarin 1 mg tablet 2.5 mg PO DAILY Blood Clot Prevention/Tx 09/04/25
Review of Systems
-
History Source: Patient
Constitutional: Reports Weight Loss
Respiratory: Reports Trouble Breathing
Cardiac: Reports No Symptoms
Abdomen/GI: Reports No Symptoms
: Reports No Symptoms
Musculoskeletal: Reports No Symptoms
Skin: Reports No Symptoms
Neurological: Reports Weakness
Endocrine: Reports No Symptoms
Hematologic/Lymphatic: Reports No Symptoms
Psych: Reports Anxiety
Physical Exam
Vital Signs
Vital Signs
Temp Pulse Resp BP Pulse Ox
99.5 F 107 16 100/45 90
09/15/25 11:00 09/15/25 11:00 09/15/25 11:00 09/15/25 11:00 09/15/25 11:00
Physical Exam
General: Appears Chronically Ill and Cachectic
HEENT: NormoCephalic, Atraumatic, Thrush and Oxygen
Respiratory: Clear
Cardiac: S1/S2 and Regular Rhythm
Breast: Deferred by me
GI: Soft, Non Tender and Non Distended
Rectal: Deferred by Provider
Genito-urinary: Deferred by me
Musculoskeletal: No Clubbing, No Cyanosis and No Edema
Skin: Warm and Dry
Neuro: Sedated
Hematologic/Lymphatic: No Lymphadenopathy
Psych: Anxious
Impression/Plan
-
Impression:
Septic shock from GAS with bacteremia
New Atrial fibrillation
Malnutrition
Oralk thrush
Coffee Ground Emesis vs Bilious Emesis
Pleural effusion
Dysarthria likely secondary to stroke
H/o Breast Cancer with brain lesions, metastasis vs embolic stroke
Dysphagia
Acute on CKD stage III
Mechanical Aortic Valve Replacement on Coumadin
left hip greater trochanteric bursitis and gluteal tendinitis
Anxiety
Hypothyroidism
Pulmonary HTN
Plan:
Mrs. Osborn is admitted to inpatient hospice
-Continue comfort care
-Will monitor and assess
[2025-09-15] MEDS: DILAUDID 1 MG IV ×2 (13:42→15:13)
[2025-09-15 15:01] VITALS: BP 71/44
--- NOTE | 2025-09-15 16:47 | PTCARENOTE ---
went to check on pts status at 1630 and pts said that the pt had not taken a breath for 12 minutes. assessed pt to find that she had , with no apical pulse for one minute. Resident Demetrius notified and arrived to pronounce pt.
[facility] called. Pts present and consoled.
--- NOTE | 2025-09-15 16:49 | W.PN.DEATH ---
Pronouncement of
-
Called to see patient to pronounce.
No spontaneous heart tones or respirations noted.
Patient not responsive to verbal stimuli.
Patient is pronounced .
Family at the bedside
Time of : 16:45
Date of : 09/15/25
Cause of : Septic shock.
Bacteremia.
Acute hypoxic respiratory
Acute metabolic encephalopathy.
New onset A-fib.
Severe protein calorie malnutrition.
Status post PEG tube
Family Notified: Yes
--- NOTE | 2025-09-15 16:55 | W.DCSUMMARY ---
Addendum entered and electronically signed by Randall Castañeda MD 09/16/25 07:48:
Attending�addendum:
I saw and evaluated the patient independently. I reviewed and discussed the resident�s note and agree with findings and plan as documented in the resident�s note.� Patient was admitted earlier today under inpatient hospice
Time of : 16:45
Date of : 09/15/25
�
Total time spent on today�s encounter was 40 minutes which included time spent in counseling the patient/family regarding diagnosis and treatment plan as listed above, goals of care, and symptom management. Case was discussed with nursing staff,
specialists, and care coordinators/case management. All labs and imaging personally reviewed by me. Remainder the time spent in detailed review of previous records, lab data, imaging, and other medical provider documentation.
Original Note:
Documented by User: Janet Romo MD, Resident 09/15/25 16:57
Discharge Summary
Discharge Data
Date of Admission: 09/15/25
Date of Discharge: 09/15/25
-
Pending Results: No
Hospital Course
Discharging Physician : Dr. Janet Romo, Randall Ryan
Disposition : Inpatient hospice
Primary care physician : Melanie Haynes MD
Principal Discharge diagnosis :
Septic shock from GAS with bacteremia
New Atrial fibrillation
Malnutrition
Oralk thrush
Coffee Ground Emesis vs Bilious Emesis
Pleural effusion
Dysarthria likely secondary to stroke
Chronic Discharge diagnosis :
H/o Breast Cancer with brain lesions, metastasis vs embolic stroke
Dysphagia
Acute on CKD stage III
Mechanical Aortic Valve Replacement on Coumadin
left hip greater trochanteric bursitis and gluteal tendinitis
Anxiety
Hypothyroidism
Pulmonary HTN
Hospital Course : Mrs. Osborn is a 69y/o female with PMH significant for aortic stenosis s/p mechanical valve replacement on Coumadin, Hodgkin's lymphoma s/p XRT, breast cancer, [place] on CKD stage III, hypertension and hypothyroidism presented to ED
with left hip pain on 09/04/2025.
# Hospital course complicated with blood cultures positive for Strep pyogenes (drawn in ED). Initial White count elevation noted attributed to recent steroid injection. Then she had rapid response deteriorating mental status secondary to developing
severe sepsis.
#She had coffee-ground emesis likely secondary to sepsis and known gastroparesis. Her Coumadin was on hold and she was treated with antibiotics.
#On chest x-ray she had pleural effusion. Thoracentesis showed serosanguineous fluid, negative for malignancy. Likely secondary to inflammation.
#She developed new atrial fibrillation. She was on IV Cardizem and metoprolol. She was not a PPM candidate because of her coagulopathy and bacteremia.
#For Malnutritiion likely secondary to severe protein calorie malnutrition she had PEG tube placed on 09/13. She did not tolerate tube feeding due to history of gastroparesis.
#For ongoing Dysphagia after VSE n.p.o. was recommended due to high aspiration risk. She accepted the risk and proceeded with full liquid diet.
#On MRI she had posterior circulation of areas of ischemia which are suggestive of embolic stroke and bilateral occipital lobe. DAVE was negative for cardioembolic source of stroke.
#Mechanical Aortic Valve Replacement on Coumadin-warfarin was held in view of anemia and concern for brain emboli with bacteremia. It was resumed and she had >8 INR level. She received vitamin K.
# left hip greater trochanteric bursitis and gluteal tendinitis she was given steroid injection on 09/04/2025.
Mrs. Osborn and her Uziel decided on proceeding with Hospice on 09/15/2025.
Today at 4:45pm Mrs Osborn comfortably surrounded by loved ones.
Discharge Plan
-
Patient Disposition:
Date/Time
Date/Time: 09/15/25 16:45
Discharge Date and Time
Discharge Date/Time: 09/15/25 16:45
Print Language: YI

Documented by User: Randall Castañeda MD 09/16/25 07:47
Discharge Summary
Discharge Data
Date of Admission: 09/15/25
Date of Discharge: 09/16/25
Discharge Plan
-
Patient Disposition:
Date/Time
Date/Time: 09/15/25 16:45
Discharge Date and Time
Discharge Date/Time: 09/15/25 16:45
Print Language: YI
== END 2025-09-15 16:45 | disposition expired | DRG 951 ==
LOC: 2 NORTH 12:19
PROVIDERS: ADMITTING PHYSICIAN General Practice
DX: Z51.5 Encounter for palliative care (principal); R65.21 Severe sepsis with septic shock; A41.9 Sepsis, unspecified organism; E43 Unspecified severe protein-calorie malnutrition; G93.41 Metabolic encephalopathy; I13.0 Hypertensive heart and chronic kidney disease with heart failure and stage 1 through stage 4 chronic kidney disease, or unspecified chronic kidney disease; D68.9 Coagulation defect, unspecified; I48.91 Unspecified atrial fibrillation; B37.9 Candidiasis, unspecified; R47.1 Dysarthria and anarthria; Z85.3 Personal history of malignant neoplasm of breast; N18.30 Chronic kidney disease, stage 3 unspecified; I27.20 Pulmonary hypertension, unspecified; F41.9 Anxiety disorder, unspecified; M76.02 Gluteal tendinitis, left hip; M70.62 Trochanteric bursitis, left hip; K31.84 Gastroparesis; D64.9 Anemia, unspecified; Z95.2 Presence of prosthetic heart valve; E89.0 Postprocedural hypothyroidism; R09.02 Hypoxemia; Z66 Do not resuscitate; Z85.71 Personal history of Hodgkin lymphoma; Z90.81 Acquired absence of spleen; Z92.3 Personal history of irradiation; Z93.1 Gastrostomy status; I50.9 Heart failure, unspecified